=== PATIENT | female | born 1980 | race Caucasian/White ===

== ENCOUNTER 2017-09-16 12:15 | Inpatient (IN) | payer SELFPAY ==
[~2017-09-16] VITALS: Ht 157.5 cm; Wt 127.0 kg
[2017-09-16 12:40] LABS: BASOPHILS # (AUTO) 0.1 10^3/uL (0.0-0.1); BASOPHILS % (AUTO) 0 % (0-10); EOSINOPHILS % (AUTO) 0 % (0-10); HEMATOCRIT 42 % (35-52); HEMOGLOBIN 13.3 G/DL (11.5-16.0); LYMPHOCYTES # (AUTO) 1.7 X 10^3 (1.0-4.0); LYMPHOCYTES % (AUTO) 8 % (12-44); MEAN CORPUSCULAR HEMOGLOBIN 26 PG (25-34); MEAN CORPUSCULAR HGB CONC 32 G/DL (32-36); MEAN CORPUSCULAR VOLUME 81 FL (80-99); MEAN PLATELET VOLUME 9.3 FL (7.4-10.4); MONOCYTES # (AUTO) 1.4 X 10^3 (0.0-1.0); MONOCYTES % (AUTO) 7 % (0-12); NEUTROPHILS # (AUTO) 17.6 X 10^3 (1.8-7.8); NEUTROPHILS % (AUTO) 84 % (42-75); PLATELET COUNT 429 10^3/uL (130-400); RED BLOOD COUNT 5.19 10^6/uL (4.35-5.85); RED CELL DISTRIBUTION WIDTH 18.4 % (10.0-14.5); WHITE BLOOD COUNT 20.8 10^3/uL (4.3-11.0)
--- NOTE | 2017-09-16 12:42 | ED Lower Extremity ---
General Chief Complaint: Lower Extremity Stated Complaint: POSS FEMUR FX Nursing Triage Note: Pt to ed from home with reports of femur fx. Pt recieved xray earlier today was called and told she had fx. Pt fell at home, denies hitting head or any other pain. Nursing Sepsis Screen: No Definite Risk History of Present Illness Date Seen by Provider: Sep 16, 2017 Time Seen by Provider: 12:00 Initial Comments Patient states the emergency room from 's office with a left femur fracture. Patient reports following one month ago and being evaluated at the [facility] in [place] for a fall on the left hip, reports they gave her prednisone, Flexeril, and ibuprofen. She states that he did not do any imaging at this time. Today patient reports falling around 5:30 or 6 this morning in the bathroom prior to getting the shower, she is unaware of what caused the fall but reports feeling a pop in the left hip as she was falling. She then went to the [facility] again and x-rays were ordered and was then sent to the ER with a femur fracture. Onset: this morning Pain/Injury Location: left hip Method of Injury: fell Allergies and Home Medications Allergies Coded Allergies: No Known Drug Allergies (Unverified , 09/16/17) Patient Home Medication List Home Medication List Reviewed: Yes Constitutional: no symptoms reported, see HPI (1) EENTM: see HPI, no symptoms reported Respiratory: no symptoms reported, see HPI Cardiovascular: no symptoms reported, see HPI Gastrointestinal: no symptoms reported, see HPI Genitourinary: no symptoms reported, see HPI Musculoskeletal: other (left hip pain) Skin: no symptoms reported, see HPI Psychiatric/Neurological: No Symptoms Reported, See HPI Past Qwkjgyo-[id number]-[id number] Hx Patient Social History Recent Foreign Travel: No Contact w/Someone Who Travel: No Recent Infectious Disease Expo: No Physical Abuse: No Sexual Abuse: No Psychosocial Suicide Risk Score: 0 Physical Exam Vital Signs Vital Signs - First Documented 09/16/17 12:36 Temp 98.0 Pulse 100 Resp 20 B/P (MAP) 143/100 (114) Pulse Ox 99 O2 Delivery Room Air Capillary Refill : Less Than 3 Seconds General Appearance: WD/WN, no apparent distress HEENT: PERRL/EOMI, normal ENT inspection Neck: non-tender, full range of motion Cardiovascular: normal peripheral pulses, regular rate, rhythm, no edema, no gallop, no JVD, no murmur Respiratory: chest non-tender, lungs clear, normal breath sounds Gastrointestinal: normal bowel sounds, non tender Back: normal inspection Hips: left hip limited range of motion, left hip pain Progress/Results/Core Measures Results/Orders Lab Results Laboratory Tests Test 09/16/17 12:30 Range/Units White Blood Count 20.8 H 4.3-11.0 10^3/uL Red Blood Count 5.19 4.35-5.85 10^6/uL Hemoglobin 13.3 11.5-16.0 G/DL Hematocrit 42 35-52 % Mean Corpuscular Volume 81 80-99 FL Mean Corpuscular Hemoglobin 26 25-34 PG Mean Corpuscular Hemoglobin Concent 32 32-36 G/DL Red Cell Distribution Width 18.4 H 10.0-14.5 % Platelet Count 429 H 130-400 10^3/uL Mean Platelet Volume 9.3 7.4-10.4 FL Neutrophils (%) (Auto) 84 H 42-75 % Lymphocytes (%) (Auto) 8 L 12-44 % Monocytes (%) (Auto) 7 0-12 % Eosinophils (%) (Auto) 0 0-10 % Basophils (%) (Auto) 0 0-10 % Neutrophils # (Auto) 17.6 H 1.8-7.8 X 10^3 Lymphocytes # (Auto) 1.7 1.0-4.0 X 10^3 Monocytes # (Auto) 1.4 H 0.0-1.0 X 10^3 Eosinophils # (Auto) 0.0 0.0-0.3 10^3/uL Basophils # (Auto) 0.1 0.0-0.1 10^3/uL Neutrophils % (Manual) 85 % Lymphocytes % (Manual) 9 % Monocytes % (Manual) 3 % Eosinophils % (Manual) 0 % Basophils % (Manual) 0 % Band Neutrophils 3 % Anisocytosis SLIGHT Sodium Level 140 135-145 MMOL/L Potassium Level 4.0 3.6-5.0 MMOL/L Chloride Level 103 98-107 MMOL/L Carbon Dioxide Level 22 21-32 MMOL/L Anion Gap 15 H 5-14 MMOL/L Blood Urea Nitrogen 20 H 7-18 MG/DL Creatinine 0.85 0.60-1.30 MG/DL Estimat Glomerular Filtration Rate > 60 BUN/Creatinine Ratio 24 Glucose Level 169 H 70-105 MG/DL Calcium Level 9.2 8.5-10.1 MG/DL Total Bilirubin 0.4 0.1-1.0 MG/DL Aspartate Amino Transf (AST/SGOT) 13 5-34 U/L Alanine Aminotransferase (ALT/SGPT) 23 0-55 U/L Alkaline Phosphatase 72 40-136 U/L Total Protein 6.8 6.4-8.2 GM/DL Albumin 4.1 3.2-4.5 GM/DL Triglycerides Level 267 H <150 MG/DL Cholesterol Level 285 H < 200 MG/DL LDL Cholesterol Direct 207 H 1-129 MG/DL VLDL Cholesterol 53 H 5-40 MG/DL HDL Cholesterol 41 40-60 MG/DL My Orders Orders - CONSTANCE URENA APRN Cbc With Automated Diff (09/16/17 12:29) Comprehensive Metabolic Panel (09/16/17 12:29) Lipid Panel (09/16/17 12:29) Chest 1 View, Ap/Pa Only (09/16/17 12:29) Ekg Tracing (09/16/17 12:29) Manual Differential (09/16/17 12:30) Fentanyl Injection (Sublimaze Injection (09/16/17 13:00) Ct Extremity Lower Left Wo (09/16/17 13:24) Fentanyl Injection (Sublimaze Injection (09/16/17 14:45) Medications Given in ED Current Medications Medications Dose Ordered Sig/Walter Route Start Time Stop Time Status Last Admin Dose Admin Fentanyl Citrate 50 mcg ONCE ONCE IVP 09/16/17 13:00 09/16/17 13:01 DC 09/16/17 13:02 50 MCG Fentanyl Citrate 50 mcg ONCE ONCE IVP 09/16/17 14:45 09/16/17 14:46 09/16/17 14:42 50 MCG Vital Signs/I&O Vital Sign - Last 12Hours 09/16/17 12:36 Temp 98.0 Pulse 100 Resp 20 B/P (MAP) 143/100 (114) Pulse Ox 99 O2 Delivery Room Air Blood Pressure Mean: 114 Progress Note : Time: 12:40 Progress Note Spoke to Dr. Isaac at this time and reviewed patient's x-rays with him. Departure Communication (Admissions) Time/Spoke to Admitting Phy: 14:45 Communication I spoke with Dr. Isaac who is on-call for orthopedics. He would like a CT scan of the hip. This was also done and I discussed these results with him. He then spoke with Dr. Lam. Dr. Lam will accept the patient. I have not spoken with Dr. Lam directly but through Dr. Isaac we will admit to Dr. Lam, pain control, tentative plan for open reduction internal fixation left hip fracture tonight. Time/Spoke to Consulting Phy: 14:45 Impression Impression: Primary Impression: Hip fracture, left Disposition: 09 ADMITTED INPATIENT Condition: Stable Admissions Decision to Admit Reason: Admit from ER (Trauma) Decision to Admit/Date: Sep 16, 2017 Time/Decision to Admit Time: 14:46 Departure-Patient Inst. Decision time for Depature: 14:44 Referrals: SUBHASH RUVALCABA MD (PCP/Family) Primary Care Physician CONSTANCE URENA APRN Sep 16, 2017 12:42
[2017-09-16 12:59] LABS: ALANINE AMINOTRANSFERASE 23 U/L (0-55); ALBUMIN 4.1 GM/DL (3.2-4.5); ALKALINE PHOSPHATASE 72 U/L (40-136); BILIRUBIN,TOTAL 0.4 MG/DL (0.1-1.0); BUN/CREATININE RATIO 24; CALCIUM 9.2 MG/DL (8.5-10.1); CARBON DIOXIDE 22 MMOL/L (21-32); CHLORIDE 103 MMOL/L (98-107); CHOLESTEROL 285 MG/DL (< 200); CREATININE SERUM 0.85 MG/DL (0.60-1.30); GFR ESTIMATED > 60; GLUCOSE 169 MG/DL (70-105); HDL CHOLESTEROL 41 MG/DL (40-60); SODIUM 140 MMOL/L (135-145); TOTAL PROTEIN 6.8 GM/DL (6.4-8.2); TRIGLYCERIDES 267 MG/DL (<150); VLDL CHOLESTEROL 53 MG/DL (5-40)
[2017-09-16] MEDS ORDERED: fentaNYL INJECTION 100 MCG/2 ML AMP IVP ONE ×2 (13:00→14:45)
[2017-09-16 13:03] LABS: ANISOCYTOSIS SLIGHT; BAND NEUTROPHILS 3 %; BASOPHILS % (MANUAL) 0 %; EOSINOPHILS % (MANUAL) 0 %; LYMPHOCYTES % (MANUAL) 9 %; MONOCYTES % (MANUAL) 3 %; NEUTROPHILS % (MANUAL) 85 %
--- NOTE | 2017-09-16 13:14 | Diagnostic Imaging Report ---
INDICATION: Left femur fracture. COMPARISON: None. FINDINGS: Single frontal view of the chest demonstrates moderate cardiomegaly. Pulmonary vasculature is within normal limits. The lungs are well aerated and clear. No large pleural effusion or pneumothorax is seen. The visualized osseous structures show no acute abnormalities. IMPRESSION: 1. Moderate cardiomegaly, but no evidence of failure or focal infiltrate. Dictated by: Dictated on workstation # [id number]
--- NOTE | 2017-09-16 14:21 | Diagnostic Imaging Report ---
PROCEDURE: CT left lower extremity without contrast. TECHNIQUE: Multiple contiguous axial images were obtained through the left lower extremity without the use of intravenous contrast. Sagittal and coronal reformations were then performed. INDICATION: Left femur fracture. Correlation is made with plain films of the left femur earlier the same day. Femoral acetabular alignment is normal. There is an acute fracture involving the femoral neck. The fracture line appears to be in a basicervical location. Mild coxa varus deformity is seen. The remainder of the femur is intact. The acetabulum is intact. The superior and inferior pubic rami are intact. IMPRESSION: Basicervical left hip fracture. Dictated by: Dictated on workstation # [id number]
[2017-09-16 16:00] VITALS: BP 132/83
[2017-09-16] MEDS ORDERED: IBUP-1780 PO (17:16)
[2017-09-16] MEDS ORDERED: PRD10T PO (17:16)
[2017-09-16] MEDS ORDERED: CYCL10TA9 PO (17:16)
[2017-09-16] MEDS ORDERED: HYDR-3820 PO (17:16)
[2017-09-16] MEDS ORDERED: LISI30TA5 PO (17:16)
[2017-09-16] MEDS ORDERED: MULT1TAB69 PO (17:16)
[2017-09-16] MEDS ORDERED: AMLO10TA2 PO (17:16)
[2017-09-16] MEDS ORDERED: INFLUENZA TRIvalent 2017-2018 0.5 ML/45 MCG SYR IM ONE (17:30)
[2017-09-16] MEDS: LISINOPRIL 30 MG TABLET PO SCH (18:00)
[2017-09-16] MEDS ORDERED: CATHETER FLUSH 10 ML SYR IV PRN (18:00)
[2017-09-16] MEDS ORDERED: PATIENT MAY USE OWN MEDS, ALL MC SCH (18:00)
[2017-09-16] MEDS ORDERED: ONDANSETRON 4 MG/2 ML (SDV) Z0FRAN IV PRN (18:00)
[2017-09-16] MEDS: LACTATED RINGERS 1,000 ML IV SCH (18:08)
[2017-09-16] MEDS: fentaNYL INJECTION 100 MCG/2 ML AMP IV PRN ×3 (18:09→22:50)
[2017-09-16 19:48] VITALS: BP 125/77
[2017-09-17] VITALS (8 sets, daily range): BP systolic 128–140; BP diastolic 62–90
[2017-09-17] MEDS: fentaNYL INJECTION 100 MCG/2 ML AMP IV PRN ×10 (00:18→21:16)
[2017-09-17] MEDS: LACTATED RINGERS 1,000 ML IV SCH ×5 (01:43→16:34)
[2017-09-17] MEDS: LISINOPRIL 30 MG TABLET PO SCH (07:39)
[2017-09-17] MEDS: amLODIPine 10 MG (NORVASC) TAB PO SCH (07:39)
--- NOTE | 2017-09-17 08:28 | History & Physicial ---
History of Present Illness History of Present Illness Reason for visit/HPI Ms. Ovalle is a 36 y/o female that presents with CC of acute onset of severe Left hip pain and an inability to bear weight on her LLE. She says that about a month ago she had a slip on some ice where she strained her Left hip, there was no actual fall. She subsequently presented to her PCP where she was given oral medications for comfort and pain control. She says the Left hip pain eventually resolved until about a week ago when she sustained another slip, straining the Left hip once again. Again, there was no actual fall. She says subsequent to this second event she had increasing Left hip/groin pain, especially with AROM and weight bearing. She says that yesterday her Left leg just "gave out" as she was attempting to step into the shower, followed by a fall. She then had severe pain in the Left hip and an inability to bear weight on her LLE. She presented to the [facility] ED where plain XRs of the Left hip demonstrated a displaced basicervical femoral neck fracture. She was transferred to [facility] for definitive management of her injury. She denies other injuries and has no additional musculoskeletal complaints. She denies f/c/ns, cp/sob, n/v or other constitutional symptoms. Date of Admission Sep 16, 2017 at 14:28 Date Seen by Provider: Sep 17, 2017 Time Seen by Provider: 08:00 I consulted on this patient on 09/17/17 08:22 Attending Physician Angelita Falk DO Admitting Physician Scott Dobbs MD Consult Allergies and Home Medications Allergies Coded Allergies: No Known Drug Allergies (Unverified , 09/16/17) Home Medications Amlodipine Besylate 10 Mg Tablet, 10 MG PO DAILY, (Reported) Cyclobenzaprine HCl 10 Mg Tablet, 10 MG PO HS, (Reported) FILLED 09/12/16 #7 FOR A 7 DAY THERAPY Hydrocodone/Acetaminophen 1 Each Tablet, 1 TAB PO Q4H PRN for PAIN-MODERATE, ( Reported) Ibuprofen 800 Mg Tablet, 800 MG PO Q8H PRN for PAIN-MILD, (Reported) Lisinopril 30 Mg Tablet, 30 MG PO DAILY, (Reported) Multivitamin 1 Each Tablet, 1 TAB PO DAILY, (Reported) Prednisone 10 Mg Tab, 10 MG PO BID WITH MEALS, (Reported) FILLED 09/12/16 #14 FOR A 7 DAY THERAPY Patient Home Medication List Home Medication List Reviewed: Yes Past Uvzmcdu-Cmxjjz-Qxwjss Hx Patient Social History Marrital Status: single Alcohol Use: Rarely Uses Number of Drinks Today: 0 Recreational Drug Use: No Smoking Status: Never a Smoker Physical Abuse Screen: No Sexual Abuse: No Recent Foreign Travel: No Contact w/other who traveled: No Recent Hopitalizations: No Recent Infectious Disease Expo: No Seasonal Allergies Seasonal Allergies: No Surgeries Yes Tonsillectomy Respiratory No Cardiovascular Yes Hypertension Neurological No Reproductive System : No Genitourinary No Gastrointestinal No Musculoskeletal No Endocrine History of Endocrine Disorders: No HEENT History of HEENT Disorders: No Cancer No Psychosocial History of Psychiatric Problem: No Integumentary History of Skin or Integumenta: No Blood Transfusions History of Blood Disorders: No Family Medical History Significant Family History: No Pertinent Family Hx Constitutional: no symptoms reported EENTM: no symptoms reported Respiratory: no symptoms reported Cardiovascular: no symptoms reported Gastrointestinal: no symptoms reported Genitourinary: no symptoms reported : No Musculoskeletal: joint pain, other (Left hip pain) Skin: no symptoms reported Psychiatric/Neurological: No Symptoms Reported All Other Systems Reviewed Negative Unless Noted: Yes Physical Exam Vital Signs Vital Signs - First Documented 09/16/17 12:36 Temp 98.0 Pulse 100 Resp 20 B/P (MAP) 143/100 (114) Pulse Ox 99 O2 Delivery Room Air Capillary Refill : Less Than 3 SecondsLess Than 3 Seconds General Appearance: No Apparent Distress, WD/WN Eyes: Bilateral Eye Normal Inspection, Bilateral Eye PERRL, Bilateral Eye EOMI HEENT: PERRL/EOMI, Normal ENT Inspection, Moist Mucous Membranes Neck: Full Range of Motion, Normal Inspection, Non Tender, Supple Respiratory: No Accessory Muscle Use, No Respiratory Distress Cardiovascular: Regular Rate, Rhythm, Normal Peripheral Pulses Gastrointestinal: Non Tender, Soft Extremity: Normal Capillary Refill, No Calf Tenderness, No Pedal Edema, Other ( LLE: shortened, externally rotated, all compartments soft/compressible, skin intact, no open wounds, pain with any ROM Left hip, motor/sensation grossly intact, foot well perfused.) Neurologic/Psychiatric: Alert, Oriented x3, No Motor/Sensory Deficits, Normal Mood/Affect, 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 Unstable injury that will require operative fixation. Remain NPO IV pain control SCDs Plan for OR later this morning. Will plan to protect weight bearing LLE after surgery. She will get VTE prophylaxis with Lovenox post-surgery. Will consult hospitalist for medical management. She will be mobilized OOB daily post-surgery with PT/OT. I discussed the nature of the injury with the patient in detail including the natural history and prognosis. We also discussed the indications for surgery and the operative plan in detail including the risks, benefits, potential complications and expected outcomes. Risks that were discussed included significant bleeding, infection, damage to surrounding neurovascular structures, malunion, nonunion, AVN of the femoral head, hardware failure and potential need for secondary surgical procedures. All of the patient's questions have been answered to her satisfaction. She has given informed written consent to proceed as planned. Problems: Admission Diagnosis Admission Status: Inpatient Order (span 2 midnights) Reason for Inpatient Admission: Left femoral neck fracture. Clinical Quality Measures DVT/VTE Risk/Contraindication: Risk Factor Score Per Nursin RFS Level Per Nursing on Admit: 4+=Very High ANGELITA FALK DO Sep 17, 2017 08:28
[2017-09-17] MEDS ORDERED: LIDOCAINE PF 2% 5 ML (XYLOCAINE) VIAL ONE (13:30)
[2017-09-17] MEDS ORDERED: ONDANSETRON 4 MG/2 ML (SDV) Z0FRAN ONE (13:30)
[2017-09-17] MEDS ORDERED: ROCURONIUM 10 MG/ML 5 ML SYRINGE IV ONE ×2 (13:30→15:42)
[2017-09-17] MEDS ORDERED: DEXAMETHASONE 10 MG/ML (DECADRON) 1 ML VIAL ONE (13:30)
[2017-09-17] MEDS ORDERED: proPOfol 200 MG/20 ML (DIPRIVAN) VIAL IV ONE (13:30)
[2017-09-17] MEDS ORDERED: MIDAZOLAM 2 MG/2 ML (VERSED) VIAL ONE (13:31)
[2017-09-17] MEDS ORDERED: fentaNYL INJECTION 100 MCG/2 ML AMP ONE ×3 (13:31→15:41)
[2017-09-17] MEDS ORDERED: ceFAZolin 1,000 MG (ANCEF) VIAL ONE (14:04)
[2017-09-17] MEDS ORDERED: BUP/EPI 0.5% 1:200,000 (SENSORCAINE) 30 ML VIAL ONE (14:24)
[2017-09-17] MEDS ORDERED: LACTATED RINGERS 0 ML IV ONE (14:47)
[2017-09-17] MEDS ORDERED: morphine INJ 10 MG/ML 1ML (SYR OR VIAL) ONE (15:20)
[2017-09-17] MEDS ORDERED: HYDROmorphone (DILAUDID) 2 MG/ML VIAL ONE (15:20)
[2017-09-17] MEDS ORDERED: PROMETHAZINE INJ 25 MG/ML (PHENERGAN) AMP ONE (15:21)
[2017-09-17] MEDS ORDERED: SUFentanil CITRATE INJ 50MCG/ML 1ML AMP IV ONE (15:44)
[2017-09-17] MEDS ORDERED: NEOSTIGMINE 1 MG/ML 5 ML SYRINGE ONE (15:55)
[2017-09-17] MEDS ORDERED: GLYCOPYRROLATE 0.2 MG/ML (ROBINUL) 2 ML VIAL ONE (15:55)
[2017-09-17] MEDS ORDERED: KETOROLAC 30 MG/ML VIAL ONE ×2 (16:09→17:16)
--- NOTE | 2017-09-17 16:26 | Diagnostic Imaging Report ---
INDICATION: Fracture, undergoing fixation. TECHNIQUE: 2 intraoperative views left femur, 3:46 PM. CORRELATION STUDY: 09/16/2017 FINDINGS: Intraoperative imaging demonstrates placement of a proximal intermedullary elan within the left femur with a sliding nail. Alignment appearing be relatively anatomic as visualized on the limited intraoperative views. Fluoroscopy time: 3 minute 5 seconds : IMPRESSION: 1. Internal fixation being performed of a proximal left femur fracture. Dictated by: Dictated on workstation # [id number]
--- NOTE | 2017-09-17 16:53 | Progress Note-Post Operative ---
Post-Operative Progess Note Surgeon (s)/Puppy Sitter (s) Surgeon ANGELITA FALK DO Puppy Sitter Nitin Chowdary PA-C Pre-Operative Diagnosis Displaced basicervical fracture Left femoral neck Post-Operative Diagnosis same Post-Op Procedure Note Date of Procedure: Sep 17, 2017 Name of Procedure Performed: Closed reduction, placement of cephalomedullary nail Left femur Description & Findings Description and Findings: Completely displaced basicervical fracture Left femoral neck. Anesthesia Type General Estimated Blood Loss 200 mL Packing none. Specimen(s) collected/removed None ANGELITA FALK DO Sep 17, 2017 16:53
[2017-09-17] MEDS ORDERED: VANCOMYCIN INJECTION 1,000 MG in NS (IVPB) 250 ML IV SCH (17:00)
[2017-09-17] MEDS ORDERED: SEVOFLURANE (ULTANE) 15 ML INHAL SOLN ONE (17:15)
[2017-09-17] MEDS ORDERED: morphine INJ 10 MG/ML 1ML (SYR OR VIAL) IVP PRN (17:15)
[2017-09-17] MEDS ORDERED: ONDANSETRON 4 MG/2 ML (SDV) Z0FRAN IVP PRN (17:15)
[2017-09-17] MEDS ORDERED: HYDROmorphone (DILAUDID) 2 MG/ML VIAL IVP PRN (17:15)
[2017-09-17] MEDS ORDERED: ALBUTEROL INHALER HFA (VENTOLIN HFA) 8 GM IH ONE ×12 (17:16)
[2017-09-17] MEDS ORDERED: PHENYLEPHRINE 100 MCG/ML 10 ML (ANESTHESIA) SYR ONE (17:16)
[2017-09-17] MEDS: VANCOMYCIN 1 GM/NS 250 ML IVPB IV SCH ×2 (18:25)
[2017-09-17] MEDS: KETOROLAC 15 MG/ML VIAL IM/IV SCH ×2 (19:14→22:14)
[2017-09-18] VITALS: BP 116/56
[2017-09-18] MEDS: LACTATED RINGERS 1,000 ML IV SCH ×6 (00:55→22:19)
[2017-09-18] MEDS: oxyCODONE/APAP 5/325MG (PERCOCET 5) TABLET PO PRN ×3 (00:56→20:26)
[2017-09-18] MEDS: fentaNYL INJECTION 100 MCG/2 ML AMP IV PRN ×4 (03:49→18:54)
[2017-09-18 04:00] VITALS: BP 124/65
[2017-09-18] MEDS: KETOROLAC 15 MG/ML VIAL IM/IV SCH (04:54)
[2017-09-18] MEDS: VANCOMYCIN 1 GM/NS 250 ML IVPB IV SCH ×2 (04:55)
[2017-09-18 06:28] LABS: HEMOGLOBIN 10.3 G/DL (11.5-16.0)
[2017-09-18 08:00] VITALS: BP 133/77
--- NOTE | 2017-09-18 09:45 | Anesthesia-General Post-Op ---
General Patient Condition Mental Status/LOC: Same as Preop Cardiovascular: Satisfactory Nausea/Vomiting: Absent Respiratory: Satisfactory Pain: Controlled Complications: Absent Post Op Complications Complications None Follow Up Care/Instructions Patient Instructions None needed. Anesthesia/Patient Condition Patient Condition Patient is doing well, no complaints, stable vital signs, no apparent adverse anesthesia problems. No complications reported per nursing. D/C home per [facility] Criteria: No CORI ELMORE CRNA Sep 18, 2017 09:45
[2017-09-18] MEDS: ENOXAPARIN 40 MG/0.4 ML (LOVENOX) SYR SC SCH (09:53)
[2017-09-18] MEDS: amLODIPine 10 MG (NORVASC) TAB PO SCH (09:53)
[2017-09-18] MEDS: LISINOPRIL 30 MG TABLET PO SCH (09:54)
--- NOTE | 2017-09-18 11:47 | Physical Therapy Evaluation ---
PT Evaluation-General Medical Diagnosis Admission Date Sep 16, 2017 at 14:28 Medical Diagnosis: left femoral neck fracture Onset Date: Sep 16, 2017 Therapy Diagnosis Therapy Diagnosis: debility/weakness Height/Weight Height (Feet): 5 Height (Inches): 2.00 Weight (Pounds): 280 Weight (Ounces): 0.0 Precautions Precautions/Isolations: Standard Precautions Weight Bear Status Right Lower Extremity: Right Full Weight Bearing Left Lower Extremity: Left Non Weight Bearing strict NWB left LE Referral Physician: Genaro Reason for Referral: Evaluation/Treatment Medical History Pertinent Medical History: HTN Additional Medical History morbid obesity Current History ED secondary to fall at home resulting in left hip fracture Reviewed History: Yes Social History Home: Multilevel Current Living Status: Spouse Entry Into Home: Ramp Prior/Core FIM Prior Level of Function Functional [place] Measure 0=Not Assessed/NA 4=Minimal Assistance 1=Total Assistance 5=Supervision or Setup 2=Maximal Assistance 6=Modified [place] 3=Moderate Assistance 7=Complete [place] Bed Mobility: 7 Transfers (B,C,W/C) (FIM): 7 Gait: 7 Locomotion: 7 PT Evaluation-Current Subjective Patient is very motivated to participate with PT so she can go home. Pain Numeric Pain Scale: 3 Location: Left Location Body Site: Hip Pain Description: Acute Objective Patient Orientation: Normal For Age Problem Solving: Good Attachments: IV ROM/Strength ROM Lower Extremities right LE WNL left LE NT Strength Lower Extremities left LE NT right knee flexion/extension 4/5; hip flexion NT due to morbid obesity; DF/PF 4/ 5 Integumentary/Posture Integumentary refer to nursing notes Bowel Incontinence: No Bladder Incontinence: No Posture WNL Neuromuscular (Tone, Coordination, Reflexes) grossly intact Sensory Vision: Wears Glasses Hearing: Functional Sensation Right Lower Extremit: Intact Sensation Left Lower Extremity: Intact Transfers Functional [place] Measure 0=Not Assessed/NA 4=Minimal Assistance 1=Total Assistance 5=Supervision or Setup 2=Maximal Assistance 6=Modified [place] 3=Moderate Assistance 7=Complete [place] Transfers (B, C, W/C) (FIM): 4 Scootin Rollin Supine to/from Sit: 4 Sit to/from Stand: 4 bed t/f WC(FIM only if WC use): 4 CGA for safety; Patient demonstrated good ability to perform sit to stand and SPT with FWW bed to chair. Gait Anticipated Mode of Locomotion: Wheelchair Balance Sitting Static: Normal Sitting Dynamic: Normal Standing Static: Normal Standing Dynamic: Fair Assessment/Needs 36 y.o. female, will be seen short term by skilled PT to ensure patient will be safe with transfers to return to home with spouse at maximum LOF. Rehab Potential: Good PT Short Term Goals Short Term Goals Time Frame: Sep 24, 2017 Transfers (B,C,W/C) (FIM): 6 Gait (FIM): 1 Distance (FIM): 1=up to 49 ft Gait Level of Assist: 5 PT Plan Treatment/Plan Treatment Plan: Continue Plan of Care Treatment Plan: Bed Mobility, Education, Functional Activity Juliana, Functional Strength, Gait, Safety, Therapeutic Exercise, Transfers Treatment Duration: Sep 24, 2017 Frequency: 6 times per week Estimated Hrs Per Day: .5 hour per day Patient and/or Family Agrees t: Yes Safety Risks/Education Patient Education: Transfer Techniques Teaching Recipient: Patient Teaching Methods: Demonstration, Discussion Response to Teaching: Verbalize Understanding, Return Demonstration Discharge Recommendations Therapy D/C Recommendations: Home w/ Family Support Equpiment Recommendations-D/C: Front Wheeled Walker, Manual Wheelchair Time/GCodes Time In: 1032 Time Out: 1052 Total Billed Treatment Time: 20 Total Billed Treatment 1 visit EVModC 20 min DIPIKA ZHANG PT Sep 18, 2017 11:47
[2017-09-18 12:00] VITALS: BP 131/82
--- NOTE | 2017-09-18 15:26 | Physical Therapy Daily Note ---
PT Daily Note-Current Transfers Functional [place] Measure 0=Not Assessed/NA 4=Minimal Assistance 1=Total Assistance 5=Supervision or Setup 2=Maximal Assistance 6=Modified [place] 3=Moderate Assistance 7=Complete IndependenceIRFPAI Quality Coding Scale 6 Independent with activity with or without an assistive device 5 Patient requires set up or clean up by helper. Patient completes activity by themselves 4 Supervision or touching assist (CGA). Douglas provide cues , steadying assist 3 The helper provides less than half the effort to complete the activity 2 The helper provides more than half the effort to complete the activity 1 Dependent. The helper does all the effort to complete an activity 7 Patient refused to complete or attempt activity 9 The patient did not perform the activity before the current illness or injury 88 Not attempted due to Medical conditions or safety concerns Weight Bearing Right Lower Extremity: Right Full Weight Bearing Left Lower Extremity: Left Non Weight Bearing strict NWB left LE Assessment Patient is in bed and reports she has been up ad cherri, NWB left LE with FWW to restroom. Patient reports she feels safe with transfers and mobility. Education with patient with demonstration of LE exercises of AP, QS, HS. Patient demonstrates good technique. Patient also reports they have a ramp, w/ c and FWW at home for use. PT will check with patient in a.m. for any concerns. PT Short Term Goals Short Term Goals Time Frame: Sep 24, 2017 Transfers (B,C,W/C) (FIM): 6 Gait (FIM): 1 Distance (FIM): 1=up to 49 ft Gait Level of Assist: 5 PT Plan Treatment/Plan Treatment Plan: Continue Plan of Care Treatment Plan: Bed Mobility, Education, Functional Activity Juliana, Functional Strength, Gait, Safety, Therapeutic Exercise, Transfers Treatment Duration: Sep 24, 2017 Frequency: 6 times per week Estimated Hrs Per Day: .5 hour per day Patient and/or Family Agrees t: Yes Safety Risks/Education Patient Education: Transfer Techniques, Issued Written HEP, Safety Issues Teaching Recipient: Patient Teaching Methods: Discussion Response to Teaching: Verbalize Understanding Time/GCodes Time In: 1451 Time Out: 1500 Total Billed Treatment Time: 9 Total Billed Treatment 1 visit Educ 1:1 DIPIKA ZHANG PT Sep 18, 2017 15:25
--- NOTE | 2017-09-18 15:55 | Occupational Therapy Eval ---
OT Evaluation-General/PLF Medical Diagnosis Admission Date Sep 16, 2017 at 14:28 Medical Diagnosis: left femoral neck fracture Onset Date: Sep 16, 2017 Therapy Diagnosis Therapy Diagnosis: Weakness, Decreased ADL skills Height/Weight Height (Feet): 5 Height (Inches): 2.00 Weight (Pounds): 280 Weight (Ounces): 0.0 Precautions Precautions/Isolations: Standard Precautions Safety Interventions: None Weight Bear Status Weight Bearing Restriction: Non Weight Bearing Location Restriction: L LE Referral Physician: Genaro Referral Reason: Activity Tolerance, Self Care, Evaluation/Treatment, Strengthening/ROM Medical History Pertinent Medical History: HTN Current History Pt. fell at home after straining her left groin twice. [place] a pop. Underwent ORIF left hip. Strict NWB left LE. Reviewed History: Yes Social History Home: Multilevel Current Living Status: Spouse Entry Into Home: Ramp ADL-Prior Level of Function ADL PLOF Comments Pt. was independent with basic self care skills. Pt. states that her spouse can assist her with all tasks at needed. DME/Equipment Comments Pt. has a walker, wheelchair, and ramp from her mother at home. Drive Self: Yes OT Current Status Subjective Pt. is reporting 9/10 pain in left hip. Nursing comes in to give pt. pain med in IV. Appearance Pt. up in chair. States that she has lost her appetite due to her pain at this time. Mental Status/Objective Patient Orientation: Person, Place, Time, Situation Attachments: IV Current Upper Extremity ROM WFL Upper Extremity Strength WFL ADL-Treatment Functional [place] Measure 0=Not Assessed/NA 4=Minimal Assistance 1=Total Assistance 5=Supervision or Setup 2=Maximal Assistance 6=Modified [place] 3=Moderate Assistance 7=Complete IndependenceIRFPAI Quality Coding Scale 6 Independent with activity with or without an assistive device 5 Patient requires set up or clean up by helper. Patient completes activity by themselves 4 Supervision or touching assist (CGA). [place] provide cues , steadying assist 3 The helper provides less than half the effort to complete the activity 2 The helper provides more than half the effort to complete the activity 1 Dependent. The helper does all the effort to complete an activity 7 Patient refused to complete or attempt activity 9 The patient did not perform the activity before the current illness or injury 88 Not attempted due to Medical conditions or safety concerns Eating (FIM): 7 Lower Body Dressing (FIM): 3 (Pt. is able to don right sock after she transfers to bed and gets foot up on bed, but is unable to don left sock.) Transfers (B, C, W/C) (FIM): 4 (Min assist to stand out of chair and transfer to bed with walker.) Pt. states that she just showered. States that she did not have any trouble. No street clothing available. Pt. reports that she was able to bathe all parts , including her rear umu area. States that she feels she will not have difficulty once she has a BM, cleaning herself up. Pt. states her spouse can assist her as needed at home. OT educated her on use of AE, and will demonstrate this to her tomorrow. Pt. in pain today and awaiting pain meds. Education OT Patient Education: Correct positioning, Modified ADL techniques, Progress toward Goal/Update tx plan, Purpose of tx/functional activities, Reviewed precautions, Rehab process, Transfer techniques Teaching Recipient: Patient, Significant Other Teaching Methods: Demonstration Response to Teaching: Verbalize Understanding, Return Demonstration OT Short Term Goals Short Term Goals Transfers (B,C,W/C) (FIM): 6 1=Demonstrate adherence to instructed precautions during ADL tasks. 2=Patient will verbalize/demonstrate understanding of assistive devices/ modifications for ADL. 3=Patient will improve strength/tolerance for activity to enable patient to perform ADL's. OT Counter Supply Worker Goals Counter Supply Worker Goals Time Frame: Sep 25, 2017 Eating (FIM): 7 Grooming(FIM): 7 Bathing(FIM): 6 Upper Body Dressing(FIM): 6 Lower Body Dressing(FIM): 6 Toileting(FIM): 6 Transfers (B,C,W/C) (FIM): 6 Toilet/Commode Transfer(FIM): 6 Shower Transfer(FIM): 6 Additional Goals: 1-Demonstrate ADL Tasks, 2-Verbalize Understanding, 3- ImproveStrength/Juliana 1=Demonstrate adherence to instructed precautions during ADL tasks. 2=Patient will verbalize/demonstrate understanding of assistive devices/ modifications for ADL. 3=Patient will improve strength/tolerance for activity to enable patient to perform ADL's. OT Education/Plan Problem List/Assessment Assessment: Decreased Activ Tolerance, Dependent Transfers, Impaired Bed Mobility, Impaired I ADL's, Impaired Self-Care Skills Discharge Recommendations Plan/Recommendations: Continue POC Therapy D/C Recommendations: Home w/ Family Support, Occupational Therapy Home Care Equpiment Recommendations-D/C: Hip Kit Target Placement Home with spouse and home health if needed. Treatment Plan/Plan of Care Treatment,Training & Education: Yes Patient would benefit from OT for education, treatment and training to promote independence in ADL's, mobility, safety and/or upper extremity function for ADL' s. Plan of Care: ADL Retraining, Functional Mobility, UE Funct Exercise/Act Treatment Duration: Sep 25, 2017 Frequency: 5 times per week Estimated Hrs Per Day: .5 hour per day Agreement: Yes Rehab Potential: Good Time/GCodes Start Time: 13:10 Stop Time: 13:45 Total Time Billed (hr/min): 35 Billed Treatment Time 1, EVM x 15minutes, ADL x 20minutes TATIANA JOHNSON OT Sep 18, 2017 15:55
[2017-09-18 16:29] VITALS: BP 127/78
--- NOTE | 2017-09-18 17:06 | Progress Note (SOAP) ---
Subjective Date Seen by Provider: Sep 18, 2017 Time Seen by Provider: 16:30 Objective Exam Vital Signs Date Time Temp Pulse Resp B/P (MAP) Pulse Ox O2 Delivery O2 Flow Rate FiO2 09/18/17 16:29 97.9 100 18 127/78 (94) 96 Room Air 09/18/17 12:00 97.8 107 22 131/82 (98) 96 Room Air 09/18/17 08:00 98.4 100 20 133/77 (95) 94 Room Air 09/18/17 04:00 98.5 90 16 124/65 (84) 92 Room Air 09/18/17 00:00 99.1 103 16 116/56 (76) 92 Room Air 09/17/17 20:38 97.3 105 18 133/79 (97) 97 Room Air 09/17/17 19:29 96.9 09/17/17 19:29 96.9 09/17/17 19:17 Room Air 09/17/17 19:14 96.9 09/17/17 18:38 96.9 09/17/17 18:26 96.9 84 18 138/79 (98) 96 Nasal Cannula 4.00 I & O 09/18/17 07:00 Intake Total 2170 ml Output Total 2625 ml Balance -455 ml Capillary Refill : Less Than 3 SecondsLess Than 3 Seconds General Appearance: No Apparent Distress, WD/WN HEENT: PERRL/EOMI, Normal ENT Inspection Respiratory: No Accessory Muscle Use, No Respiratory Distress Cardiovascular: Regular Rate, Rhythm, Normal Peripheral Pulses Peripheral Pulses: 2+ Dorsalis Pedis (R), 2+ Left Dors-Pedis (L) Gastrointestinal: non tender, soft Extremity: Normal Capillary Refill, No Calf Tenderness, Other (LLE: dressings with mild SS drainage, all compartments soft/compressible, motor/sensation grossly intact, foot well pers) Neurologic/Psychiatric: Alert, Oriented x3, No Motor/Sensory Deficits, Normal Mood/Affect, precision aircraft structure assembler II-XII Norm as Tested Skin: Normal Color, Warm/Dry Results Lab Laboratory Tests 09/18/17 05:25: Hemoglobin 10.3#L, Hematocrit 33L Microbiology 09/17/17 MRSA Screen - Final, Complete MRSA not isolated Assessment/Plan Assessment/Plan Assess & Plan/Chief Complaint S/P IMN Left femur for displaced basicervical femoral neck fracture, POD #1 Doing well, orthopedically stable. Lovenox for VTE prophylaxis. Current pain control regimen. Mobilize OOB daily with PT/OT, strict NWB LLE. ISB/SCDs D/C planning: pt to d/c to home when clears PT, likely in 1-2 days. Clinical Quality Measures Admission Status Admission Dx A/P: 36 y/o with displaced basicervical fracture Left femoral neck. Unstable injury that will require operative fixation. Remain NPO IV pain control SCDs Plan for OR later this morning. Will plan to protect weight bearing LLE after surgery. She will get VTE prophylaxis with Lovenox post-surgery. Will consult hospitalist for medical management. She will be mobilized OOB daily post-surgery with PT/OT. I discussed the nature of the injury with the patient in detail including the natural history and prognosis. We also discussed the indications for surgery and the operative plan in detail including the risks, benefits, potential complications and expected outcomes. Risks that were discussed included significant bleeding, infection, damage to surrounding neurovascular structures, malunion, nonunion, AVN of the femoral head, hardware failure and potential need for secondary surgical procedures. All of the patient's questions have been answered to her satisfaction. She has given informed written consent to proceed as planned. DVT/VTE Risk/Contraindication: Risk Factor Score Per Nursin RFS Level Per Nursing on Admit: 4+=Very High ANGELITA FALK DO Sep 18, 2017 17:06
[2017-09-18 20:08] VITALS: BP 120/74
[2017-09-19] VITALS: BP 117/67
[2017-09-19] MEDS: oxyCODONE/APAP 5/325MG (PERCOCET 5) TABLET PO PRN ×6 (00:48→23:43)
[2017-09-19 04:00] VITALS: BP 123/68
[2017-09-19] MEDS: LACTATED RINGERS 1,000 ML IV SCH ×2 (06:24→17:25)
[2017-09-19] MEDS: amLODIPine 10 MG (NORVASC) TAB PO SCH (08:01)
[2017-09-19] MEDS: ENOXAPARIN 40 MG/0.4 ML (LOVENOX) SYR SC SCH (08:02)
[2017-09-19] MEDS: LISINOPRIL 30 MG TABLET PO SCH (08:02)
[2017-09-19 08:30] VITALS: BP 142/91
--- NOTE | 2017-09-19 11:24 | Physical Therapy Daily Note ---
PT Daily Note-Current Subjective Patient agrees to PT and reports she has had pain medication. Pain Numeric Pain Scale: 4 Location: Left Location Body Site: Hip Pain Description: Acute Mental Status Patient Orientation: Normal For Age Attachments: IV Transfers Functional [place] Measure 0=Not Assessed/NA 4=Minimal Assistance 1=Total Assistance 5=Supervision or Setup 2=Maximal Assistance 6=Modified [place] 3=Moderate Assistance 7=Complete IndependenceIRFPAI Quality Coding Scale 6 Independent with activity with or without an assistive device 5 Patient requires set up or clean up by helper. Patient completes activity by themselves 4 Supervision or touching assist (CGA). [place] provide cues , steadying assist 3 The helper provides less than half the effort to complete the activity 2 The helper provides more than half the effort to complete the activity 1 Dependent. The helper does all the effort to complete an activity 7 Patient refused to complete or attempt activity 9 The patient did not perform the activity before the current illness or injury 88 Not attempted due to Medical conditions or safety concerns Transfers (B, C, W/C) (FIM): 4 Scootin Rollin Supine to/from Sit: 4 (assist for Left LE only) Sit to/from Stand: 5 Weight Bearing Right Lower Extremity: Right Full Weight Bearing Left Lower Extremity: Left Non Weight Bearing strict NWB left LE Gait Training Gait (FIM): 1 Distance (FIM): 1=up to 49 ft Distance: 5' Gait Level of Assist: 5 Gait Assistive Device: FWW Patient is able to ambulate short distances with NWB left LE. Exercises Supine Ex: Ankle pumps, Quad Set, Heel Slides, Straight leg raise, Hip abd/add Supine Reps: 15 (AAROM SLR) Seated Therapy Exercises: Long arc quads Seated Reps: [address] Ex=Flex, Abd, Ext (left LE only) Standing Reps: 15 (2 sets) Assessment Patient reports she has FWW, w/c and ramp at home and feels comfortable with returning to home when physician releases her. Education with patient on performing exercises PRN with patient voicing understanding. PT to dismiss patient from services at this time. PT Short Term Goals Short Term Goals Time Frame: Sep 24, 2017 Transfers (B,C,W/C) (FIM): 6 Gait (FIM): 1 Distance (FIM): 1=up to 49 ft Gait Level of Assist: 5 PT Plan Treatment/Plan Treatment Plan: Discontinue PT Treatment Plan: Bed Mobility, Education, Functional Activity Juliana, Functional Strength, Gait, Safety, Therapeutic Exercise, Transfers Treatment Duration: Sep 24, 2017 Frequency: 6 times per week Estimated Hrs Per Day: .5 hour per day Patient and/or Family Agrees t: Yes Time/GCodes Time In: 1045 Time Out: 1055 Total Billed Treatment Time: 10 Total Billed Treatment 1 visit EX 10 min DIPIKA ZHANG PT Sep 19, 2017 11:23
[2017-09-19] MEDS: fentaNYL INJECTION 100 MCG/2 ML AMP IV PRN (12:01)
[2017-09-19 12:30] VITALS: BP 116/72
--- NOTE | 2017-09-19 12:48 | Occupational Ther Daily Note ---
OT Current Status-Daily Note Subjective Pt in bed, agrees to treatment. Pt reports 6/10 pain in left LE. Mental Status/Objective Functional [place] Measure 0=Not Assessed/NA 4=Minimal Assistance 1=Total Assistance 5=Supervision or Setup 2=Maximal Assistance 6=Modified [place] 3=Moderate Assistance 7=Complete [place] ADL-Treatment Pt supine to sit with minimal assistance for left LE. Education provided regarding use of adaptive equipment for LE dressing. Pt doffed socks with SBA using dressing stick. Donned socks with set up using sock aid. Educated pt on technique for donning pants with adaptive equipment. Pt states understanding of education and has no questions at this time. Pt states spouse will be available to assist with ADLs as needed at home. Pt with needs met after session. Education OT Patient Education: Modified ADL techniques Teaching Recipient: Patient Teaching Methods: Demonstration, Discussion Response to Teaching: Return Demonstration OT Short Term Goals Short Term Goals Transfers (B,C,W/C) (FIM): 6 1=Demonstrate adherence to instructed precautions during ADL tasks. 2=Patient will verbalize/demonstrate understanding of assistive devices/ modifications for ADL. 3=Patient will improve strength/tolerance for activity to enable patient to perform ADL's. OT Intermediate Goals [place] Observer Goals Time Frame: Sep 25, 2017 Eating (FIM): 7 Grooming(FIM): 7 Bathing(FIM): 6 Upper Body Dressing(FIM): 6 Lower Body Dressing(FIM): 6 Toileting(FIM): 6 Transfers (B,C,W/C) (FIM): 6 Toilet/Commode Transfer(FIM): 6 Shower Transfer(FIM): 6 Additional Goals: 1-Demonstrate ADL Tasks, 2-Verbalize Understanding, 3- ImproveStrength/Juliana 1=Demonstrate adherence to instructed precautions during ADL tasks. 2=Patient will verbalize/demonstrate understanding of assistive devices/ modifications for ADL. 3=Patient will improve strength/tolerance for activity to enable patient to perform ADL's. OT Education/Plan Discharge Recommendations Plan/Recommendations: Continue POC Treatment Plan/Plan of Care Patient would benefit from OT for education, treatment and training to promote independence in ADL's, mobility, safety and/or upper extremity function for ADL' s. Plan of Care: ADL Retraining, Functional Mobility, UE Funct Exercise/Act Treatment Duration: Sep 25, 2017 Frequency: 5 times per week Estimated Hrs Per Day: .5 hour per day Agreement: Yes Rehab Potential: Good Time/GCodes Start Time: 10:57 Stop Time: 11:08 Total Time Billed (hr/min): 11 Billed Treatment Time 1 visit, ADL(11minutes) BEVERLY PADILLA OT Sep 19, 2017 12:48
[2017-09-19 16:00] VITALS: BP 114/70
--- NOTE | 2017-09-19 17:34 | Progress Note (SOAP) ---
Subjective Date Seen by Provider: Sep 19, 2017 Time Seen by Provider: 17:32 Subjective/Events-last exam Pt CRISTHIAN, pain controlled, making progress in PT/OT, no complaints today. Objective Exam Vital Signs Date Time Temp Pulse Resp B/P (MAP) Pulse Ox O2 Delivery O2 Flow Rate FiO2 09/19/17 16:00 98.3 98 18 114/70 (85) 94 Room Air 09/19/17 12:30 97.7 107 20 116/72 (87) 95 Room Air 09/19/17 08:30 97.2 106 20 142/91 (108) 93 Room Air 09/19/17 04:00 97.6 90 20 123/68 (86) 94 Room Air 09/19/17 00:00 97.2 104 16 117/67 (84) 94 Room Air 09/18/17 20:08 98.6 101 20 120/74 (89) 96 Room Air I & O 09/19/17 07:00 Intake Total 4681 ml Output Total 1000 ml Balance 3681 ml Capillary Refill : Less Than 3 SecondsLess Than 3 Seconds General Appearance: No Apparent Distress, WD/WN HEENT: PERRL/EOMI Respiratory: No Accessory Muscle Use, No Respiratory Distress Cardiovascular: Regular Rate, Rhythm, Normal Peripheral Pulses Peripheral Pulses: 2+ Dorsalis Pedis (R), 2+ Left Dors-Pedis (L) Gastrointestinal: non tender, soft Extremity: Other (LLE: dressings with mild ss drainage, all compartments soft/ compressible, motor/sensation grossly intact, foot well perfused.) Neurologic/Psychiatric: Alert, Oriented x3, No Motor/Sensory Deficits, Normal Mood/Affect, education administrator II-XII Norm as Tested Results Lab Microbiology 09/17/17 MRSA Screen - Final, Complete MRSA not isolated Assessment/Plan Assessment/Plan Assess & Plan/Chief Complaint S/P IMN Left femur for displaced basicervical femoral neck fracture, POD #2 Doing well, orthopedically stable, pain controlled. Lovenox for VTE prophylaxis, will d/c to home on EC ASA Current pain control regimen. Continue to mobilize OOB daily with PT/OT, strict NWB LLE. ISB/SCDs D/C planning: plan to d/c patient to home tomorrow. Instructions given Questions answered. Clinical Quality Measures Admission Status Admission Dx A/P: 36 y/o with displaced basicervical fracture Left femoral neck. Unstable injury that will require operative fixation. Remain NPO IV pain control SCDs Plan for OR later this morning. Will plan to protect weight bearing LLE after surgery. She will get VTE prophylaxis with Lovenox post-surgery. Will consult hospitalist for medical management. She will be mobilized OOB daily post-surgery with PT/OT. I discussed the nature of the injury with the patient in detail including the natural history and prognosis. We also discussed the indications for surgery and the operative plan in detail including the risks, benefits, potential complications and expected outcomes. Risks that were discussed included significant bleeding, infection, damage to surrounding neurovascular structures, malunion, nonunion, AVN of the femoral head, hardware failure and potential need for secondary surgical procedures. All of the patient's questions have been answered to her satisfaction. She has given informed written consent to proceed as planned. DVT/VTE Risk/Contraindication: Risk Factor Score Per Nursin RFS Level Per Nursing on Admit: 4+=Very High ANGELITA FALK DO Sep 19, 2017 17:34
--- NOTE | 2017-09-19 17:38 | Discharge Inst-Surgical ---
Discharge Inst-Surgical Depart Medication/Instructions New, Converted or Re-Newed RX: RX on Chart Patient Instructions Please take 325 mg of enteric coated aspirin twice daily for 3 weeks to help prevent blood clots. Consults/Follow Up Goal/Follow Up Appt.: Please follow-up with Dr. Falk at [address], [place] in 2 weeks; please call the office to confirm your appointment. Activity Continue strict non weight bearing on your left leg. Walking Assistive Device: Walker Activity Instructions: Avoid Pulling & Pushing, Avoid Stress to Incision Do Not Lift Over _ Pounds: 10 Driving Instructions: No Driving/Refer to Dr. Kay Discharge Diet: No Restrictions Skin/Wound Care Infection Signs and Symptoms: Increased Redness, Foul Odor of Wound, Increased Drainage, Increased Swelling, Temperature Above 101 F Wound Care Comment: You may remove your dressings in 2 days and shower; no baths or soaking tubs; your bailey will be removed in the office at your first follow-up appointment. Bathing Instructions: Shower Operative Area Clean and Dry: Keep Incision Clean/Dry Stitches/[place]/Dermabond Dis: Care of [place] ANGELITA FALK DO Sep 19, 2017 17:38
[2017-09-19] MEDS ORDERED: OXYC-471 PO (17:42)
[2017-09-19] MEDS: DOCUSATE SODIUM 100 MG (COLACE) CAP PO SCH (19:31)
[2017-09-19 20:00] VITALS: BP 134/79
[2017-09-20] VITALS: BP 120/71
[2017-09-20] MEDS: oxyCODONE/APAP 5/325MG (PERCOCET 5) TABLET PO PRN ×4 (06:42→19:38)
[2017-09-20 08:00] VITALS: BP 112/66
[2017-09-20] MEDS: amLODIPine 10 MG (NORVASC) TAB PO SCH (08:38)
[2017-09-20] MEDS: DOCUSATE SODIUM 100 MG (COLACE) CAP PO SCH (08:38)
[2017-09-20] MEDS: LISINOPRIL 30 MG TABLET PO SCH (08:38)
[2017-09-20] MEDS: ENOXAPARIN 40 MG/0.4 ML (LOVENOX) SYR SC SCH (08:39)
[2017-09-20 16:00] VITALS: BP 122/76
[2017-09-21 03:54] VITALS: BP 122/76
--- NOTE | 2017-09-29 23:30 | OPERATIVE REPORT ---
DATE OF SERVICE: 09/17/2017 PREOPERATIVE DIAGNOSES: Displaced basicervical femoral neck fracture, left proximal femur. POSTOPERATIVE DIAGNOSES: Displaced basicervical femoral neck fracture, left proximal femur. PROCEDURE: Closed reduction followed by placement of cephalomedullary nail, left proximal femur. ATTENDING SURGEON: Dr. Angelita Falk. YARD INSPECTOR: Nitin Chowdary PA-C; Mr. Chowdary's assistance was required secondary to the complexity of the case, the patient's large body habitus, in order to hold necessary retractors, protecting vital neurovascular structures and to increase the efficiency and efficacy of the case; this case would not have been possible without an household personal assistant. IMPLANTS USED: The Synthes short trochanteric femoral nail. ANESTHESIA: General endotracheal. ESTIMATED BLOOD LOSS: 150 mL. COMPLICATIONS: None. SPECIMENS: None. DRAINS: None. BRIEF HISTORY/INDICATIONS: The patient is a 36-year-old female who presented to the [facility] Emergency Department on 09/16/2017 with acute onset of severe left hip pain. The patient states that approximately one month ago, she had slipped on some "ice" strained her left hip. She was given anti-inflammatory medications as treatment at that time. The patient states that that pain got better over the next 2 to 3 weeks, then she sustained another slip followed by significant left hip pain. The patient states that she had increasing pain in the left hip with weightbearing over the ensuing week until she slipped once again trying to get into her shower at which time she had severe left hip pain and inability to bear weight or ambulate on her left lower extremity. Upon presentation to the [facility] ED, plain radiographs of the patient's left femur demonstrated a displaced basicervical fracture of the left femoral neck. Orthopedic service was consulted for definitive management of her injury. The patient had denied any other musculoskeletal complaints. There were no other musculoskeletal injuries. She had severe hip pain with any attempted range of motion, her motor and sensory function was grossly intact throughout her left lower extremity. Her skin was intact. There were no open wounds. I discussed the nature of her injury in detail including the natural history and prognosis as well as the indications for surgery. After discussing the risks, benefits, potential complications and expected outcomes of surgical stabilization, the patient gave informed consent to proceed as planned after all of her questions were answered to her satisfaction. The risks that were discussed included significant bleeding, infection, damage to surrounding neurovascular structures, nonunion, malunion, avascular necrosis of the femoral head, hardware irritation and/or failure, and potential need for secondary surgical procedures. PROCEDURE NOTE: After correctly identifying the patient as the patient in the preoperative holding area and after her left hip was appropriately marked, she was transferred to the operating room. Once in the operating room, she had successful induction of general endotracheal anesthesia and she was transferred to the standard radiolucent fracture table and placed in supine position. All bony prominences were meticulously padded. The operative left leg was secured into the fracture boot of the fracture table and the contralateral extremity was secured to the contralateral spire of the hip fracture table and well-padded in the scissor position. A closed reduction maneuver including traction and rotation was then completed of the left hip. C-arm fluoroscopy in both the AP and lateral planes confirmed that the reduction of the fracture was acceptable. The left hip was then prepped and draped in the routine sterile fashion. Prior to making incisions, we completed an operating room timeout with all parties involved in the case in agreement and verified appropriate infusion of prophylactic antibiotics. Using a 10 blade scalpel, I made an incision of approximately 3 cm in length approximately 3 fingerbreadths proximal to the tip of the greater trochanter incising through the skin and subcutaneous tissue. The threaded guide pin was then inserted into the proximal femur with the appropriate start point under fluoroscopic guidance and advanced to just distal to the lesser trochanter. The opening reamer was then used over the guidepin to open the area relief pilot hole in the greater trochanter in preparation for the femoral nail. A ball tipped guidewire was then inserted into the proximal femur and into the medullary canal and then standard reaming then ensued in stepwise fashion until we were getting a very good chatter with the reamer. The final cephalomedullary nail was then inserted over the guidewire and into the proximal femur to the appropriate depth with light taps of the mallet. Once confirmed with fluoroscopy that the nail was inserted to the appropriate depth, we then inserted the guide pin for the cephalomedullary helical blade into the femoral head and neck under fluoroscopic guidance. The guidepin was placed in the center-center position. Once the guidepin was measured for length, we used the cortical reamer and then the step reamer to prepare the path for the helical blade. The helical blade was then inserted over the guidepin to the appropriate depth in the femoral head and neck with light taps of the mallet under fluoroscopic guidance. Once AP and lateral C-arm views confirmed adequate position of the hardware and maintenance of acceptable reduction of the fracture, the nail was placed under compression through the external compression device in the nail. We then inserted the distal locking bolt to the distal aspect of the nail through the external aiming arm. The nail was then final locked proximally. The external aiming arm was then removed. Final C-arm imaging in both AP and lateral planes confirmed adequate position of the hardware and position of the fracture. The wounds were then irrigated with copious amounts of sterile saline followed by standard closure which included 0 Vicryl for the deep fascia, 2-0 Vicryl for the subcutaneous tissue and bailey for the skin. The patient had sterile dressing applied and was awakened and extubated in the operating room without complications. She was transferred to the PACU in stable condition. She tolerated the procedure quite well. All counts were correct at the end of the case. Job ID: [id number] DocumentID: [id number] Dictated Date: 09/29/2017 16:37:36 Equipment Operator Warehouse Date: 09/29/2017 23:28:56 Dictated By: ANGELITA FALK [facility]STCHESTEROliver
== END 2017-09-20 21:05 | disposition home or self-care (01) | DRG 482 ==
LOC: EDUNIT# 12:15 → ER 12:17 → 4TH 14:28
PROVIDERS: ADMIT Orthopaedic Surgery Orthopaedic Trauma; ATTEND Orthopaedic Surgery Orthopaedic Trauma
PROC: 0QS736Z Reposition Left Upper Femur with Intramedullary Internal Fixation Device, Percutaneous Approach (ICD-10-PCS; principal; 2017-09-17 13:57)
DX: S72.042A Displaced fracture of base of neck of left femur, initial encounter for closed fracture (principal); I10 Essential (primary) hypertension; W19.XXXA Unspecified fall, initial encounter; Y92.012 Bathroom of single-family (private) house as the place of occurrence of the external cause
CPT/HCPCS: 36415; 71045; 73700; 80053; 80061; 82962; 84703; 85007; 85014; 85018; 85025; 85027; 87081; 93005; 94664; 96374; 96376

== ENCOUNTER → 2017-09-16 | Outpatient (CLI) | payer SELFPAY ==
[~2017-09-16] MED LIST: AMLO10TA2 PO; CYCL10TA9 PO; HYDR-3820 PO; IBUP-1780 PO; LISI30TA5 PO; MULT1TAB69 PO; PRD10T PO
--- NOTE | 2017-09-16 11:14 | Diagnostic Imaging Report ---
INDICATION: Left leg pain. Left leg venous Doppler study was performed in the routine fashion with color flow Doppler and waveform analysis. FINDINGS: The left common femoral vein, superficial femoral vein, popliteal vein and visualized portion of the posterior tibial vein show normal compressibility and venous flow patterns. There is normal augmentation. IMPRESSION: No evidence of deep vein thrombosis of the major veins of the left leg. Dictated by: Dictated on workstation # [id number]
--- NOTE | 2017-09-16 11:53 | Diagnostic Imaging Report ---
INDICATION: Left hip pain. COMPARISON: None. FINDINGS: Four radiographic views of the left femur were obtained. There is minimally displaced fracture at the base of the femoral neck. There is mild varus angulation of the distal fracture fragment. Femoral acetabular joint space is maintained. No unexpected radiopaque foreign bodies are seen. There is moderate calcified arterial sclerosis. IMPRESSION: 1. Acute fracture of the proximal left femur as described above. 2. Moderate calcified arterial sclerosis. This is much greater than expected given patient's age. Correlation with underlying risk factors is recommended. Report was called to Dr. Dobbs by sandra at 11:50AM. Dictated by: Dictated on workstation # [id number]
== END ==
LOC: RAD 09:16
PROVIDERS: ATTEND Family Medicine
DX: I70.202 Unspecified atherosclerosis of native arteries of extremities, left leg (principal)
CPT/HCPCS: 73552

== ENCOUNTER → 2020-01-11 | Outpatient (CLI) | payer OTHER ==
[~2020-01-11] VITALS: Ht 154 cm; Wt 145.0 kg
[~2020-01-11] MED LIST changes: +ACHYD1T PO; -AMLO10TA2 PO; +AMLO10TA7 PO; +CATHETER FLUSH 10 ML SYR IV PRN; -HYDR-3820 PO; +MULT-567 PO; -MULT1TAB69 PO; +OXYC-471 PO; +REGADENOSON 0.4 MG/5 ML SYR (LEXISCAN) IV ONE
[2020-01-11 09:33] VITALS: BP 185/123
[2020-01-11 09:37] VITALS: BP 194/118
--- NOTE | 2020-01-11 16:31 | STRESS TEST ---
DATE OF SERVICE: 01/11/2020 RESTING AND POST REGADENOSON TECHNETIUM-99M TETROFOSMIN SPECT CT IMAGING ORDERING PHYSICIAN: Dr. Bob. CLINICAL DIAGNOSES: Chest discomfort, shortness of breath. Baseline images were carried out after injection of 10.4 mCi of technetium-99m Tetrofosmin. This was followed by 0.4 mg regadenoson and 31.3 mCi of technetium-99m Tetrofosmin for stress imaging. The electrocardiogram showed sinus rhythm at baseline and did not change significantly with regadenoson infusion. Review of images at rest and following stress indicates a transient anterolateral perfusion defect that is consistent with ischemia. Gated images show global left ventricular systolic function to be mildly to moderately impaired. There does not appear to be distinct regional wall motion abnormality. Left ventricular ejection fraction is calculated to be 40%. Left ventricular end diastolic volume is 141 mL. TID is absent (0.87). CONCLUSIONS: 1. This study is indicative of anterolateral ischemia. 2. Wybt-fq-hpcbfdnp impairment of global left ventricular systolic function with mild to moderate global hypokinesis and left ventricular ejection fraction 40%. 3. Moderate cardiomegaly. Job ID: [id number] DocumentID: [id number] Dictated Date: 01/11/2020 13:49:27 Energy Derivatives Trader Date: 01/11/2020 16:30:59 Dictated By: FRANCO BOB MD, MA, FACP, FACC,
== END ==
LOC: CARD 07:46
PROVIDERS: ATTEND Internal Medicine Cardiovascular Disease
DX: I51.89 Other ill-defined heart diseases (principal); E66.9 Obesity, unspecified; R07.89 Other chest pain; R06.02 Shortness of breath
CPT/HCPCS: 78452; 93017; A9502

== ENCOUNTER → 2020-01-13 | Outpatient (CLI) | payer OTHER ==
[~2020-01-13] MED LIST changes: -CATHETER FLUSH 10 ML SYR IV PRN; -REGADENOSON 0.4 MG/5 ML SYR (LEXISCAN) IV ONE
== END ==
LOC: CARD 12:42
PROVIDERS: ATTEND Internal Medicine Cardiovascular Disease
DX: I51.7 Cardiomegaly (principal); R07.9 Chest pain, unspecified; R06.02 Shortness of breath; E66.9 Obesity, unspecified
CPT/HCPCS: 93306

== ENCOUNTER 2020-01-24 06:41 | Emergency (ER) | payer SELFPAY ==
[~2020-01-24] VITALS: Ht 154 cm; Wt 145.0 kg
--- OUTSIDE RECORDS SUMMARY | 2020-01-24 06:47 | XMS REPORT | Continuity of Care Document ---
Author Organization Unknown Address Unknown Phone Unavailable Allergies Active Description Code Type Severity Reaction Onset Reported/Identified Relationship to Patient Clinical Status Yes No Known Drug Allergies [id number] Drug Allergy Unknown N/A 09/16/2017 Medications There is no data. 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 11/13/2017 SUBHASH RUVALCABA MD R Ot 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 01/13/2020 ZEV EDMOND FACC, FRANCO FACP CCDS Ot E66.9 OBESITY, UNSPECIFIED 01/13/2020 ZEV EDMOND FACC, FRANCO FACP CCDS Ot 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 01/13/2020 ZEV EDMOND FACC, FRANCO FACP CCDS Ot R06.02 SHORTNESS OF BREATH 01/13/2020 ZEV EDMOND FACC, ALI FACP CCDS Ot R07.89 OTHER CHEST PAIN 01/13/2020 SUBHASH RUVALCABA MD R Ot 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 01/13/2020 ZEV EDMOND FACC, FRANCO FACP CCDS Ot E66.9 OBESITY, UNSPECIFIED 01/13/2020 ZEV MD FACC, ALI FACP CCDS Ot 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 01/13/2020 ZEV EDMOND FACC, ALI FACP CCDS Ot R06.02 SHORTNESS OF BREATH 01/13/2020 ZEV EDMOND FACC, ALI FACP CCDS Ot R07.89 OTHER CHEST PAIN 01/13/2020 PEG EDMOND, SUBHASH R Ot 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 01/13/2020 ZEV EDMOND FACC, ALI FACP CCDS Ot E66.9 OBESITY, UNSPECIFIED 01/13/2020 ZEV EDMOND FACC, ALI FACP CCDS Ot 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 01/13/2020 ZEV EDMOND FACC, ALI FACP CCDS Ot R06.02 SHORTNESS OF BREATH 01/13/2020 ZEV EDMOND FACC, ALI FACP CCDS Ot R07.89 OTHER CHEST PAIN 01/13/2020 PEG EDMOND, SUBHASH R Ot 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 01/13/2020 ZEV EDMOND FACC, ALI FACP CCDS Ot E66.9 OBESITY, UNSPECIFIED 01/13/2020 ZEV EDMOND FACC, ALI FACP CCDS Ot 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 01/13/2020 ZEV EDMOND FACC, ALI FACP CCDS Ot R06.02 SHORTNESS OF BREATH 01/13/2020 ZEV EDMOND FACC, ALI FACP CCDS Ot R07.89 OTHER CHEST PAIN 01/17/2020 ZEV EDMOND FACC, ALI FACP CCDS Ot E66.9 OBESITY, UNSPECIFIED 01/17/2020 ZEV EDMOND FACC, ALI FACP CCDS Ot I51.7 CARDIOMEGALY 01/17/2020 ZEV EDMOND FACC, ALI FACP CCDS Ot R06.02 SHORTNESS OF BREATH 01/17/2020 ZEV EDMOND FACC, ALI FACP CCDS Ot R07.9 CHEST PAIN, UNSPECIFIED Procedures Code Description Performed By Per formed On [id number] RE POSITION LEFT UPPER FEMUR WITH INTRAME 09/17/2017 [id number] RE POSITION LEFT UPPER FEMUR WITH INTRAME 09/17/2017 Results Test Result Range Complete blood count (CBC) with automate d white blood cell (WBC) differential - 09/16/17 12:30 Blood leukocytes automated count (number/volume) 20.8 10*3/uL 4.3-11.0 Blood erythrocytes automated count (number/volume) 5.19 10*6/uL 4.35-5.85 Venous blood hemoglobin measurement (mass/volume) 13.3 g/dL 11.5-16.0 Blood hematocrit (volume fraction) 42 % 35-52 Automated erythrocyte mean corpuscular volume 81 [ foz_us] 80-99 Automated erythrocyte mean corpuscular h emoglobin (mass per erythrocyte) 26 pg 25-34 Automated erythrocyte mean corpuscular h emoglobin concentration measurement (mass/volume) 32 g/dL 32-36 Automated erythrocyte distribution width ratio 18. 4 % 10.0- 14.5 Automated blood platelet count (count/volume) 429 10*3/uL 130-400 Automated blood platelet mean volume measurement 9.3 [foz_us] 7.4-10.4 Automated blood neutrophils/100 leukocytes 84 % 42-75 Automated blood lymphocytes/100 leukocytes 8 % 12-44 Blood monocytes/100 leukocytes 7 % 0-12 Automated blood eosinophils/100 leukocytes 0 % 0-10 Automated blood basophils/100 leukocytes 0 % 0-10 Blood neutrophils automated count (number/volume) 17.6 10*3 1.8-7.8 Blood lymphocytes automated count (number/volume) 1.7 10*3 1.0-4.0 Blood monocytes automated count (number/volume) 1. 4 10*3 0.0-1.0 Automated eosinophil count 0.0 10*3/uL 0 .0-0.3 Automated blood basophil count (count/volume) 0.1 10*3/uL 0.0-0.1 Comprehensive metabolic panel - 09/16/17 12:30 Serum or plasma sodium measurement (moles/volume) 140 mmol/L 135-145 Serum or plasma potassium measurement (moles/volume) 4.0 mmol/L 3.6-5.0 Serum or plasma chloride measurement (moles/volume) 103 mmol/L 98-107 Carbon dioxide 22 mmol/L 21-32 Serum or plasma anion gap determination (moles/volume) 15 mmol/L 5-14 Serum or plasma urea nitrogen measurement (mass/volume ) 20 mg/dL 7-18 Serum or plasma creatinine measurement (mass/volume) 0.85 mg/dL 0.60-1.30 Serum or plasma urea nitrogen/creatinine mass ratio 24 NRG Serum or plasma creatinine measurement w ith calculation of estimated glomerular filtration rate > NRG Serum or plasma glucose measurement (mass/volume) 169 mg/dL 70-105 Serum or plasma calcium measurement (mass/volume) 9.2 mg/dL 8.5-10.1 Serum or plasma total bilirubin measurement (mass/volu me) 0.4 mg/dL 0.1-1.0 Serum or plasma alkaline phosphatase samuel surement (enzymatic activity/volume) 72 U/L 40-136 Serum or plasma aspartate aminotransfera se measurement (enzymatic activity/volume) 13 U/L 5-34 Serum or plasma alanine aminotransferase measurement (enzymatic activity/volume) 23 U/L 0-55 Serum or plasma protein measurement (mass/volume) 6.8 g/dL 6.4-8.2 Serum or plasma albumin measurement (mass/volume) 4.1 g/dL 3.2-4.5 Lipid 1996 panel - 09/16/17 12:30 Serum or plasma triglyceride measurement (mass/volume) 267 mg/dL <150 Serum or plasma cholesterol measurement (mass/volume) 285 mg/dL < 200 Serum or plasma cholesterol in HDL measurement (mass/v olume) 41 mg/dL 40-60 Cholesterol in LDL [mass/volume] in serum or plasma by direct assay 207 mg/dL 1-129 Serum or plasma cholesterol in VLDL measurement (mass/ volume) 53 mg/dL 5-40 Blood manual differential performed dete ction - 09/16/17 12:30 Blood monocytes/100 leukocytes 3 % NRG Manual blood segmented neutrophils/100 leukocytes 85 % NRG Blood band neutrophils/100 leukocytes 3 % NRG Manual blood lymphocytes/100 leukocytes 9 % NRG Manual eosinophils/100 leukocytes in nose 0 % NRG Manual blood basophils/100 leukocytes 0 % NRG Blood anisocytosis detection by light microscopy S LIGHT NRG Methicillin resistant Staphylococcus aur eus (MRSA) screening culture - 09/17/17 05:30 Methicillin resistant Staphylococcus aureus (MRSA) scr eening culture NEG NRG Urine beta human chorionic gonadotropin (hCG) measurement - 09/17/17 13:26 Urine beta human chorionic gonadotropin (hCG) measurem ent NEGATIVE NEGATIVE Whole blood hemoglobin and hematocrit pa kimberli - 09/18/17 05:25 Venous blood hemoglobin measurement (mass/volume) 10.3 g/dL 11.5-16.0 Blood hematocrit (volume fraction) 33 % 35-52 Capillary blood glucose measurement by g lucometer (mass/volume) - 09/20/17 06:04 Capillary blood glucose measurement by glucometer (mas s/volume) 133 mg/dL 70-110 Encounters ACCT No. Visit Date/Time Discharge Status Pt. Type Provider Facility Loc./Unit Complaint [id number] 08/13/2019 10:00:00 08/13/2019 23:59: 59 [facility] [id number] 01/13/2020 12:42:00 23:59:59 CLS Outpatient ZEV EDMOND FACC, FRANCO LEBLANC CC DS [facility] CARD CHEST DISCOMFORT,SOB,OBESITY [id number] 01/11/2020 07:46:00 23:59:59 CLS Outpatient ZEV EDMOND FACC, FRANCO LEBLANC CC DS [facility] CARD CHEST DISCOMFORT,SOB,OBESITY [id number] 09/16/2017 14:28:00 018 21:05:00 DIS Inpatient ANGELITA FALK DO [facility] 4TH L FEMORAL NECK FRACTURE [id number] 09/16/2017 09:16:00 018 23:59:59 CLS Outpatient SUBHASH RUVALCABA MD [facility] RAD M25.552
[2020-01-24] MEDS ORDERED: ceFAZolin INJECTION 1,000 MG in WATER (STERILE) FOR INJECTION 10 ML IV ONE (07:15)
[2020-01-24] MEDS ORDERED: TETANUS,DIPTH,PERTUSS P/F (BOOSTRIX) 0.5 ML VIAL IM ONE (07:15)
[2020-01-24 07:45] LABS: HEMOGLOBIN 11.6 G/DL (11.5-16.0); MEAN PLATELET VOLUME 8.9 FL (7.4-10.4); RED CELL DISTRIBUTION WIDTH 17.9 % (10.0-14.5); WHITE BLOOD COUNT 9.1 10^3/uL (4.3-11.0)
[2020-01-24] MEDS ORDERED: LIDOCAINE/EPI 2% 1:100,00 (XYLOCAINE) 20 ML VIAL INJ ONE (07:45)
--- NOTE | 2020-01-24 07:46 | Diagnostic Imaging Report ---
HISTORY: Fall this morning with pain and laceration to the right knee. TECHNIQUE: 3 views of the right knee. COMPARISON: None FINDINGS: No acute fracture or dislocation is seen in the right knee. Alignment appears normal. Joint spaces are preserved. There is a soft tissue laceration anterior to the patella. There is calcific atherosclerosis. No radiopaque foreign body is seen. IMPRESSION: 1. Prepatellar soft tissue laceration with no acute osseous abnormalities seen in the right knee. Dictated by: Dictated on workstation # [id number]
[2020-01-24] MEDS ORDERED: fentaNYL INJECTION 100 MCG/2 ML AMP ONE (07:47)
--- NOTE | 2020-01-24 08:28 | ED Lower Extremity ---
General Chief Complaint: Lower Extremity Stated Complaint: RT LEG LACERATION Nursing Triage Note: ARRIVED VIA WC TO ROOM 07. STATES HER LEFT LEG GAVE OUT ON HER CAUSING HER TO FALL ONTO HER RIGHT LEG. LARGE LACERATION NOTED RIGHT KNEE THAT HAS A SMALL VESSEL THAT IS PULSATING BLOOD. PT HAS AREA COVERED IN WHAT LOOKS LIKE HOUSE INSTALLATION. DR BROUGHT INTO THE ROOM TO LOOK AT THE LACERATION. Nursing Sepsis Screen: No Definite Risk Source: patient Exam Limitations: no limitations History of Present Illness Date Seen by Provider: Jan 24, 2020 Time Seen by Provider: 07:00 Initial Comments Patient presents to ER by private conveyance with family and chief complaint that just prior to arrival she was walking out to take her dogs out on the back porch and she fell down onto a board on her deck. She struck her right knee causing a large laceration. She's not on blood thinners. She's not diabetic or having any immunocompromise. She denies loss of consciousness nor strike her head. She takes medicines for blood pressure. She follows with Dr. Maxi Soni and recently did a stress test by Dr. Bob because she was having some shortness of breath and chest pain but she's not having any of the symptoms today. Allergies and Home Medications Allergies Coded Allergies: No Known Drug Allergies (Unverified , 09/16/17) Home Medications Amlodipine Besylate 10 Mg Tablet, 10 MG PO DAILY, (Reported) Cyclobenzaprine HCl 10 Mg Tablet, 10 MG PO HS, (Reported) FILLED 09/12/16 #7 FOR A 7 DAY THERAPY Lisinopril 30 Mg Tablet, 30 MG PO DAILY, (Reported) Multivitamin 1 Each Tablet, 1 TAB PO DAILY, (Reported) Oxycodone HCl/Acetaminophen 1 Each Tablet, 1-2 TAB PO Q4H PRN for PAIN-SEVERE Prescribed by: ANGELITA FALK on 09/19/17 6620 Patient Home Medication List Home Medication List Reviewed: Yes Review of Systems Constitutional: No chills, No fever EENTM: No ear discharge, No ear pain Respiratory: No cough, No short of breath Cardiovascular: No edema, No vascular heart diseas Gastrointestinal: No abdominal pain, No constipation, No diarrhea Genitourinary: No discharge, No dysuria All Other Systems Reviewed Negative Unless Noted: Yes Past Qrryuwh-Zzopmb-Uxuvrj Hx Patient Social History Alcohol Use: Denies Use Recreational Drug Use: No Smoking Status: Never a Smoker Recent Foreign Travel: No Contact w/Someone Who Travel: No Recent Infectious Disease Expo: No Recent Hopitalizations: No Seasonal Allergies Seasonal Allergies: No Past Medical History Surgeries: Yes Tonsillectomy Respiratory: No Cardiac: Yes Hypertension Neurological: No Genitourinary: No Gastrointestinal: No Musculoskeletal: No Endocrine: No HEENT: No Cancer: No Psychosocial: No Integumentary: No Blood Disorders: No Family Medical History No Pertinent Family Hx Physical Exam Vital Signs Vital Signs - First Documented 01/24/20 07:05 Temp 37.0 Pulse 75 Resp 16 B/P (MAP) 153/105 (121) Pulse Ox 96 O2 Delivery Room Air Capillary Refill : Less Than 3 Seconds Height, Weight, BMI Height: 5'2.00" Weight: 280lbs. 0.0oz. 127.427539hq; 61.00 BMI Method:Stated General Appearance: WD/WN, no apparent distress HEENT: PERRL/EOMI, pharynx normal Neck: full range of motion, normal inspection Cardiovascular: normal peripheral pulses, regular rate, rhythm Respiratory: no respiratory distress, no accessory muscle use Legs: bilateral leg non-tender, bilateral leg normal inspection, bilateral leg normal range of motion, bilateral leg no evidence of injury Knees: left knee non-tender, left knee normal inspection, left knee normal range of motion, left knee no evidence of injury; right knee pain, right knee soft tissue tenderness, right knee other (laceration 12 cm anterior right knee just at the level of the superior border of the patella, gaped exposing the fascia layer.) Ankles: bilateral ankle non-tender, bilateral ankle normal inspection, bilateral ankle normal range of motion, bilateral ankle no evidence of injury Neurologic/Tendon: normal sensation, normal motor functions, normal tendon functions, responds to pain, no evidence tendon injury Neurologic/Psychiatric: no motor/sensory deficits, alert, normal mood/affect Skin: normal color, warm/dry, other (laceration above the right knee) Procedures/Interventions Wound Location: Lower Extremities Other Wound Location Right knee Wound's Depth, Shape: linear, bone, sub Q Wound Explored: no foreign body removed Irrigated w/ Saline (ccs): 3000 Betadine Prep?: Yes (as well as chlorhexidine and sterile saline) Anesthesia: Lidocaine w/ Epi (2%) Volume Anesthetic (ccs): 14 Wound Debrided: minimal Suture: Ethlion Suture Size: 2-0 Number of Sutures: 7 Layer Closure?: 2 Number Deep Layer Sutures: 3 Sterile Dressing Applied?: Yes Progress Wound was scrubbed with Betadine and then chlorhexidine and sterile saline. We then infiltrated the wound edges with lidocaine 2% with epinephrine until she had good anesthesia. 75 g of fentanyl were given for pain. Patient tolerated the procedure well. We explored the wound flushing thoroughly using over 3 L of sterile saline. The medial half of the wound was down to the fascia but not through the fascia. This wound was closed with wide gaped simple interrupted 2-0 Ethilon. The lateral half of the wound had a laceration into the fascia but the patella did not show any damage overtly nor was the superior patellar ligament lacerated. This space was thoroughly flushed with sterile saline and chlorhexidine followed by saline again. The fascia was closed using 3-0 Vicryl 3 sutures. We then flushed out the undermined skin and subcutaneous fat thoroughly and reapproximated with 2-0 Ethilon. The wound was then again soaked with Betadine and dressed with a sterile dressing per nursing. Progress/Results/Core Measures Results/Orders Lab Results Laboratory Tests Test 01/24/20 07:35 Range/Units White Blood Count 9.1 4.3-11.0 10^3/uL Red Blood Count 4.67 4.35-5.85 10^6/uL Hemoglobin 11.6 11.5-16.0 G/DL Hematocrit 39 35-52 % Mean Corpuscular Volume 84 80-99 FL Mean Corpuscular Hemoglobin 25 25-34 PG Mean Corpuscular Hemoglobin Concent 30 L 32-36 G/DL Red Cell Distribution Width 17.9 H 10.0-14.5 % Platelet Count 367 130-400 10^3/uL Mean Platelet Volume 8.9 7.4-10.4 FL My Orders Orders - ALVARO JOSE Knee, Right, 3 Views (01/24/20 07:14) Dipht,Pertuss(Acell),Tet Adult (Boostrix (01/24/20 07:15) Cefazolin Injection (Ancef Injection) (01/24/20 07:15) Cbc No Diff (01/24/20 07:14) Lidocaine/Epi 2% 1:100,000 (Xylocaine/Ep (01/24/20 07:45) Fentanyl Injection (Sublimaze Injection (01/24/20 07:47) Medications Given in ED Current Medications Medications Dose Ordered Sig/Walter Route Start Time Stop Time Status Last Admin Dose Admin Diphtheria/ Tetanus/Acell Pertussis 0.5 ml ONCE ONCE IM 01/24/20 07:15 01/24/20 07:16 DC 01/24/20 08:15 0.5 ML Vital Signs/I&O 01/24/20 07:05 Temp 37.0 Pulse 75 Resp 16 B/P (MAP) 153/105 (121) Pulse Ox 96 O2 Delivery Room Air Blood Pressure Mean: 121 Progress Progress Note : Time: 08:28 Progress Note Ancef 1 g. Hemogram unremarkable. Tetanus vaccination given. X-ray did not reveal any significant foreign bodies. Diagnostic Imaging Diagonstic Imaging: Xray Plain Films/CT/US/NM/MRI: knee (right) Comments NAME: MEGHAN CORONA [facility] REC#: [id number] PT STATUS: REG ER : 1980 PHYSICIAN: ALVARO JOSE MD ADMIT DATE: 01/24/20/ER Draft Date of Exam:01/24/20 KNEE, RIGHT, 3 VIEWS HISTORY: Fall this morning with pain and laceration to the right knee. TECHNIQUE: 3 views of the right knee. COMPARISON: None FINDINGS: No acute fracture or dislocation is seen in the right knee. Alignment appears normal. Joint spaces are preserved. There is a soft tissue laceration anterior to the patella. There is calcific atherosclerosis. No radiopaque foreign body is seen. IMPRESSION: 1. Prepatellar soft tissue laceration with no acute osseous abnormalities seen in the right knee. Dictated on workstation # [id number] Dict: 01/24/20 0740 Trans: 01/24/20 0746 [id number] Interpreted by: DEISY RECINOS MD Electronically signed by: Reviewed: Reviewed by Me Departure Impression Primary Impression: Fall Qualified Codes: W19.XXXA - Unspecified fall, initial encounter Additional Impression: Laceration of right knee Qualified Codes: S81.011A - Laceration without foreign body, right knee, initial encounter Disposition: 01 HOME, SELF-CARE Condition: Improved Departure-Patient Inst. Decision time for Depature: 08:25 Referrals: SUBHASH RUVALCABA MD (PCP/Family) Primary Care Physician Patient Instructions: Laceration Repair With Stitches (DC) Add. Discharge Instructions: Keep the wound clean with regular soap and water only. Do not use anti- astringent's such as iodine, hydrogen peroxide, alcohol etc. Take the antibiotics 4 times a day for the next week. Take it with 3 meals and at bedtime. If you develop a yeast infection you may take a Diflucan tablet. If you have pain use Tylenol 650 mg every 8 hours as needed. If you still have pain you may use the hydrocodone one tablet every 6 hours as needed for breakthrough pain. Hydrocodone will cause drowsiness increasing your risk of falls as well as constipation. MiraLAX once a day can be helpful to keep your regular while on hydrocodone. Plan to follow up later this week with Dr. Soni by calling for an appointment in 3-5 days to have the leg reexamined. The sutures need to be removed in 10-14 days. You are welcome to return to the ER to have this done. If you have worsening redness going up your thigh, fever or nausea and vomiting then you should follow-up with your doctor or return to the ER. Change the dressing at least daily but more often if it becomes soiled. You may wrap it with an Noel bandage for increased compression to decrease the swelling. Keep the leg elevated above the level of your heart when not in use. Minimize the use of your leg for the next week. All discharge instructions reviewed with patient and/or family. Voiced understanding. Scripts Fluconazole (Diflucan) 200 Mg Tablet 200 MG PO ONCE for 1 Day, #1 TAB 0 Refills Prov: ALVARO JOSE 01/24/20 Hydrocodone/Acetaminophen (Hydrocodone-Acetamin 5-325 mg) 1 Each Tablet 1 EACH PO Q6H PRN for PAIN-BREAKTHROUGH, #15 TAB 0 Refills Prov: ALVARO JOSE 01/24/20 Cephalexin (Keflex) 500 Mg Capsule 500 MG PO QID for 7 Days, #28 CAP 0 Refills Prov: ALVARO JOSE 01/24/20 Work/School Note: Work Release Form Date Seen in the Emergency Department: Jan 24, 2020 Return to Work: Jan 26, 2020 Restrictions: No Sports-Until Released Other Restrictions Listed Below: Keep right leg elevated. Minimalize walking. ALVARO JOSE Jan 24, 2020 08:28
[2020-01-24] MEDS ORDERED: HYDR-83 PO (08:38)
[2020-01-24] MEDS ORDERED: CEPH-507 PO (08:38)
[2020-01-24] MEDS ORDERED: FLUC200T PO (08:38)
[2020-01-24] MEDS ORDERED: fentaNYL INJECTION 100 MCG/2 ML AMP IVP ONE (08:45)
[2020-01-24 08:47] VITALS: BP 153/105
== END 2020-01-24 08:47 | disposition home or self-care (01) ==
LOC: EDUNIT# 06:41 → ER 06:43
DX: S81.011A Laceration without foreign body, right knee, initial encounter (principal); I10 Essential (primary) hypertension; W19.XXXA Unspecified fall, initial encounter; W22.8XXA Striking against or struck by other objects, initial encounter
CPT/HCPCS: 12034; 36415; 73562; 85027; 90715

== ENCOUNTER 2021-01-07 14:54 | Inpatient (IN) | payer SELFPAY ==
[~2021-01-07] VITALS: Ht 157.5 cm; Wt 127.0 kg
[~2021-01-07 14:54] MED LIST changes: +ACHD5005 PO; +AMLO-251 PO; -AMLO10TA7 PO; +CEPH-507 PO; +FLUC200T PO; -OXYC-471 PO; +OXYC1TAB11 PO
[2021-01-07 15:23] LABS: ALBUMIN 2.7 GM/DL (3.2-4.5); POTASSIUM 4.2 MMOL/L (3.6-5.0)
[2021-01-07 15:24] LABS: CALCIUM 9.6 MG/DL (8.5-10.1)
[2021-01-07 15:26] LABS: TOTAL PROTEIN 6.5 GM/DL (6.4-8.2)
[2021-01-07 15:27] LABS: BILIRUBIN,TOTAL 0.4 MG/DL (0.1-1.0)
[2021-01-07 15:29] LABS: BASOPHILS % (AUTO) 0 % (0-10); CREATININE SERUM 1.78 MG/DL (0.60-1.30); EOSINOPHILS % (AUTO) 0 % (0-10); HEMATOCRIT 30 % (35-52); HEMOGLOBIN 8.4 g/dL (11.5-16.0); LYMPHOCYTES # (AUTO) 0.7 X 10^3 (1.0-4.0); LYMPHOCYTES % (AUTO) 5 % (12-44); MEAN CORPUSCULAR HEMOGLOBIN 20 pg (25-34); MEAN CORPUSCULAR HGB CONC 29 g/dL (32-36); MEAN CORPUSCULAR VOLUME 71 fL (80-99); MEAN PLATELET VOLUME 9.9 fL (9.0-12.2); MONOCYTES # (AUTO) 0.3 X 10^3 (0.0-1.0); MONOCYTES % (AUTO) 2 % (0-12); NEUTROPHILS # (AUTO) 11.9 X 10^3 (1.8-7.8); NEUTROPHILS % (AUTO) 90 % (42-75); WHITE BLOOD COUNT 13.3 10^3/uL (4.3-11.0)
[2021-01-07 15:53] LABS: BAND NEUTROPHILS 8 %; BURR CELLS MODERATE; HYPOCHROMASIA MODERATE; LYMPHOCYTES % (MANUAL) 15 %; MICROCYTOSIS MODERATE; MONOCYTES % (MANUAL) 2 %; NEUTROPHILS % (MANUAL) 75 %; NUCLEATED RED BLOOD CELLS 1
[2021-01-07 15:54] LABS: PLATELET COUNT 443 10^3/uL (130-400)
[2021-01-07] MEDS ORDERED: NS IV 1000 ML 1,000 ML IV SCH (16:00)
[2021-01-07 16:15] LABS: ABG BASE EXCESS -13.5 MMOL/L (-2.5-2.5); ABG OXYGEN SATURATION 99 % (94-100); ABG PH 7.37 (7.37-7.43); ABG PO2 116 MMHG (79-93); ABG TCO2 11.6 MMOL/L (21.0-31.0)
--- NOTE | 2021-01-07 16:15 | ED Respiratory ---
General Chief Complaint: Respiratory Problems Stated Complaint: SOB/PAIN ALL OVER Nursing Triage Note: Pt arrival to ER via wheelchair with complaint of SOA since last night at 1700 hours while at a family/friend gathering. Pt states that its progressively gotten worse. Pt also complains of pain from head to toe. Significant other states that both are new for her. Pain rated at a 10/10 Source: patient Exam Limitations: no limitations History of Present Illness Date Seen by Provider: Jan 07, 2021 Time Seen by Provider: 16:11 Initial Comments To ER by private vehicle with reports of shortness of breath since last night. noticed it while coming home from [place] at a family gathering. Patient has had fevers and chills for about 2 to 3 days. She reports that she has diffuse general pain which is unusual for her as is the shortness of breath. She is morbidly obese with a large pannus and states that it is more red than usual. She follows with Dr. Maxi Soni. Her medications are Metformin, Norvasc, Lasix, another antidiabetic injection. Timing/Duration: constant Severity: moderate Prior Episodes/Possible Cause: no prior episodes Associated Symptoms: shortness of breath Allergies and Home Medications Allergies Coded Allergies: No Known Drug Allergies (Unverified , 09/16/17) Home Medications Amlodipine Besylate 10 Mg Tablet, 10 MG PO DAILY, (Reported) Cephalexin 500 Mg Capsule, 500 MG PO QID Prescribed by: ALVARO JOSE on 01/24/20837 Cyclobenzaprine HCl 10 Mg Tablet, 10 MG PO HS, (Reported) FILLED 09/12/16 #7 FOR A 7 DAY THERAPY Fluconazole 200 Mg Tablet, 200 MG PO ONCE Prescribed by: ALVARO JOSE on 01/24/20 08 Hydrocodone/Acetaminophen 1 Each Tablet, 1 EACH PO Q6H PRN for PAIN-BREAKTHROUGH Prescribed by: ALVARO JOSE on 01/24/20837 Lisinopril 30 Mg Tablet, 30 MG PO DAILY, (Reported) Multivitamin 1 Each Tablet, 1 TAB PO DAILY, (Reported) Oxycodone HCl/Acetaminophen 1 Each Tablet, 1-2 TAB PO Q4H PRN for PAIN-SEVERE Prescribed by: ANGELITA FALK on 09/19/17 2412 Patient Home Medication List Home Medication List Reviewed: Yes Review of Systems Review of Systems Constitutional: see HPI, chills, fever EENTM: see HPI Respiratory: no symptoms reported Cardiovascular: no symptoms reported Genitourinary: no symptoms reported Musculoskeletal: no symptoms reported Skin: no symptoms reported Psychiatric/Neurological: No Symptoms Reported Hematologic/Lymphatic: No Symptoms Reported Immunological/Allergic: no symptoms reported Past Jqlzmpb-Pgsntp-Fpugvq Hx Patient Social History Alcohol Use: Denies Use Recent Infectious Disease Expo: No Recent Hopitalizations: No Seasonal Allergies Seasonal Allergies: No Past Medical History Surgeries: Yes Tonsillectomy Respiratory: No Cardiac: Yes Hypertension Neurological: No Genitourinary: No Gastrointestinal: No Musculoskeletal: No Endocrine: No HEENT: No Cancer: No Psychosocial: No Integumentary: No Blood Disorders: No Family Medical History No Pertinent Family Hx Physical Exam Vital Signs - First Documented 01/07/21 14:59 Temp 36.1 Pulse 129 Resp 30 B/P (MAP) 102/75 (84) O2 Delivery Room Air Capillary Refill : Less Than 3 Seconds Height: 5'2.00" Weight: 280lbs. 0.0oz. 127.000581ln; 55.00 BMI Method:Stated General Appearance: obese, other (Moderate distress. Tachypneic with a respiratory rate of 35. Tachycardic rate of 123. Blood pressure soft at 106/75. She is lethargic, and answers with only short phrases.) Eyes: Bilateral Eye Normal Inspection, Bilateral Eye PERRL HEENT: PERRL/EOMI, normal ENT inspection Neck: non-tender, full range of motion Respiratory: no respiratory distress, no accessory muscle use Cardiovascular: tachycardia Gastrointestinal: normal bowel sounds, non tender, soft Skin: normal color, warm/dry, other (She has a mottled appearance of bilateral lower extremities, states this is a usual appearance for her but it seems a bit darker than normal. She also has some slight erythema of the pannus which is very large. She has an erythematous half dollar sized area to the medial/dorsal aspect of the right foot) Focused Exam Sepsis Stage: Severe Sepsis Possible Source: Skin/Soft Tissue Lactate Level 01/07/21 16:17: Lactic Acid Level 7.62*H Time of Focused Exam: 16:54 Respiratory: No Accessory Muscle Use, No Respiratory Distress Cardiovascular: Regular Rate, Rhythm, Normal Peripheral Pulses Capillary Refill: Less Than 3 Seconds Skin: pallor Lactic Acid Level Laboratory Tests Test 01/07/21 16:17 Lactic Acid Level 7.62 MMOL/L (0.50-2.00) *H Within 3hrs of presentation: Admin fluids, Admin 30ml/kg IBW due to BMI>30, Admin ABX, Blood cultures prior to ABX's, Focus exam, Lactate level Procedures/Interventions Suture Size: 2-0 Progress/Results/Core Measures Suspected Sepsis Recent Fever Within 48 Hours: No Infection Criteria Present: None New/Unexplained Altered Menta: No Sepsis Screen: No Definite Risk SIRS Temperature: Pulse: 129 Respiratory Rate: 30 Laboratory Tests 01/07/21 15:02: White Blood Count 13.3H Blood Pressure 102 /75 Mean: 84 01/07/21 16:17: Lactic Acid Level 7.62*H Laboratory Tests 01/07/21 15:02: Creatinine 1.78H, Platelet Count 443H, Total Bilirubin 0.4 01/07/21 16:17: Results/Orders Lab Results Laboratory Tests Test 01/07/21 15:02 01/07/21 15:07 01/07/21 15:31 01/07/21 16:09 Range/Units White Blood Count 13.3 H 4.3-11.0 10^3/uL Red Blood Count 4.16 3.80-5.11 10^6/uL Hemoglobin 8.4 L 11.5-16.0 g/dL Hematocrit 30 L 35-52 % Mean Corpuscular Volume 71 L 80-99 fL Mean Corpuscular Hemoglobin 20 L 25-34 pg Mean Corpuscular Hemoglobin Concent 29 L 32-36 g/dL Red Cell Distribution Width 19.1 H 10.0-14.5 % Platelet Count 443 H 130-400 10^3/uL Mean Platelet Volume 9.9 9.0-12.2 fL Immature Granulocyte % (Auto) 3 % Neutrophils (%) (Auto) 90 H 42-75 % Lymphocytes (%) (Auto) 5 L 12-44 % Monocytes (%) (Auto) 2 0-12 % Eosinophils (%) (Auto) 0 0-10 % Basophils (%) (Auto) 0 0-10 % Neutrophils # (Auto) 11.9 H 1.8-7.8 X 10^3 Lymphocytes # (Auto) 0.7 L 1.0-4.0 X 10^3 Monocytes # (Auto) 0.3 0.0-1.0 X 10^3 Eosinophils # (Auto) 0.0 0.0-0.3 10^3/uL Basophils # (Auto) 0.0 0.0-0.1 10^3/uL Immature Granulocyte # (Auto) 0.4 H 0.0-0.1 10^3/uL Neutrophils % (Manual) 75 % Lymphocytes % (Manual) 15 % Monocytes % (Manual) 2 % Band Neutrophils 8 % Nucleated Red Blood Cells 1 Hypochromasia MODERATE Microcytosis MODERATE Elvi Cells MODERATE Sodium Level 140 135-145 MMOL/L Potassium Level 4.2 3.6-5.0 MMOL/L Chloride Level 108 H 98-107 MMOL/L Carbon Dioxide Level 9 *L 21-32 MMOL/L Anion Gap 23 H 5-14 MMOL/L Blood Urea Nitrogen 39 H 7-18 MG/DL Creatinine 1.78 H 0.60-1.30 MG/DL Estimat Glomerular Filtration Rate 32 BUN/Creatinine Ratio 22 Glucose Level 288 H 70-105 MG/DL Calcium Level 9.6 8.5-10.1 MG/DL Corrected Calcium 10.6 H 8.5-10.1 MG/DL Total Bilirubin 0.4 0.1-1.0 MG/DL Aspartate Amino Transf (AST/SGOT) 21 5-34 U/L Alanine Aminotransferase (ALT/SGPT) 30 0-55 U/L Alkaline Phosphatase 169 H 40-136 U/L B-Type Natriuretic Peptide 407.1 H <100.0 PG/ML Total Protein 6.5 6.4-8.2 GM/DL Albumin 2.7 L 3.2-4.5 GM/DL Serum Test, Qualitative NEGATIVE NEGATIVE Salicylates Level < 5.0 L 5.0-20.0 MG/DL Serum Alcohol < 10 <10 MG/DL Influenza Type A (RT-PCR) Not Detected Not Detecte Influenza Type B (RT-PCR) Not Detected Not Detecte SARS-CoV-2 RNA (RT-PCR) Not Detected Not Detecte Blood Gas Puncture Site TBD Blood Gas Patient Temperature 36.1 Arterial Blood pH 7.37 7.37-7.43 Arterial Blood Partial Pressure CO2 19 *L 35-45 MMHG Arterial Blood Partial Pressure O2 116 H 79-93 MMHG Arterial Blood HCO3 11 *L 23-27 MMOL/L Arterial Blood Total CO2 11.6 L 21.0-31.0 MMOL/L Arterial Blood Oxygen Saturation 99 94-100 % Arterial Blood Base Excess -13.5 L -2.5-2.5 MMOL/L Denilson Test YES-POS Blood Gas Ventilator Setting NO Blood Gas Inspired Oxygen 2 Test 01/07/21 16:17 01/07/21 16:30 Range/Units D-Dimer 8.94 H 0.00-0.49 UG/ML Lactic Acid Level 7.62 *H 0.50-2.00 MMOL/L Beta-Hydroxybutyrate (Chem panel) 0.16 0.00-0.27 MMOL/L Urine Color YELLOW Urine Clarity SL CLOUDY Urine pH 5.0 5-9 Urine Specific [place] >=1.030 1.016-1.022 Urine Protein 1+ H NEGATIVE Urine Glucose (UA) 1+ H NEGATIVE Urine Ketones TRACE H NEGATIVE Urine Nitrite NEGATIVE NEGATIVE Urine Bilirubin 1+ H NEGATIVE Urine Urobilinogen 1.0 < = 1.0 MG/DL Urine Leukocyte Esterase NEGATIVE NEGATIVE Urine RBC (Auto) NEGATIVE NEGATIVE Urine RBC RARE /HPF Urine WBC RARE /HPF Urine Squamous Epithelial Cells 2-5 /HPF Urine Crystals NONE /LPF Urine Bacteria TRACE /HPF Urine Casts NONE /LPF Urine Mucus NEGATIVE /LPF Urine Culture Indicated NO Urine Opiates Screen POSITIVE H NEGATIVE Urine Oxycodone Screen NEGATIVE NEGATIVE Urine Methadone Screen NEGATIVE NEGATIVE Urine Propoxyphene Screen NEGATIVE NEGATIVE Urine Barbiturates Screen NEGATIVE NEGATIVE Ur Tricyclic Antidepressants Screen NEGATIVE NEGATIVE Urine Phencyclidine Screen NEGATIVE NEGATIVE Urine Amphetamines Screen POSITIVE H NEGATIVE Urine Methamphetamines Screen NEGATIVE NEGATIVE Urine Benzodiazepines Screen NEGATIVE NEGATIVE Urine Cocaine Screen NEGATIVE NEGATIVE Urine Cannabinoids Screen NEGATIVE NEGATIVE My Orders Orders - CONSTANCE URENA APRN Covid 19 Inhouse Test (01/07/21 15:07) Influenza A And B By Pcr (01/07/21 15:07) Cbc With Automated Diff (01/07/21 15:07) Comprehensive Metabolic Panel (01/07/21 15:07) Ua Culture If Indicated (01/07/21 15:07) Hcg,Qualitative Serum (01/07/21 15:07) Ed Iv/Invasive Line Start (01/07/21 15:07) Fibrin Degradation Products (01/07/21 15:07) BNP (01/07/21 15:07) Manual Differential (01/07/21 15:02) Beta Hydroxybutyrate (01/07/21 15:58) Lactic Acid Analyzer (01/07/21 15:58) Blood Culture (01/07/21 15:58) Ns Iv 1000 Ml (Sodium Chloride 0.9%) (01/07/21 16:00) Chest 1 View, Ap/Pa Only (01/07/21 16:11) Drug Screen Stat (Urine) (01/07/21 16:26) Salicylate (01/07/21 16:26) Alcohol (01/07/21 16:26) Ns Iv 1000 Ml (Sodium Chloride 0.9%) (01/07/21 16:45) Piperacillin Sodium/Tazobactam (Zosyn Vi (01/07/21 16:45) Fentanyl Inj (Sublimaze Injection) (01/07/21 17:15) Protime With Inr (01/07/21 17:09) Partial Thromboplastin Time (01/07/21 17:09) Ns Iv 1000 Ml (Sodium Chloride 0.9%) (01/07/21 17:15) Fibrinogen (01/07/21 17:20) Medications Given in ED Current Medications Medications Dose Ordered Sig/Walter Route Start Time Stop Time Status Last Admin Dose Admin Fentanyl Citrate 50 mcg ONCE ONCE IVP 01/07/21 17:15 01/07/21 17:16 DC 01/07/21 17:19 50 MCG Piperacillin Sod/ Tazobactam Sod 4.5 gm/Sodium Chloride 100 ml @ 200 mls/hr ONCE ONCE IV 01/07/21 16:45 01/07/21 17:14 DC 01/07/21 16:53 200 MLS/HR Sodium Chloride 1,000 ml @ ud STK-MED ONCE .ROUTE 01/07/21 17:15 01/07/21 17:18 DC 01/07/21 17:15 999 MLS/HR Vital Signs/I&O 01/07/21 14:59 Temp 36.1 Pulse 129 Resp 30 B/P (MAP) 102/75 (84) O2 Delivery Room Air Capillary Refill : Less Than 3 Seconds Blood Pressure Mean: 84 Diagnostic Imaging Diagonstic Imaging: Xray Plain Films/CT/US/NM/MRI: chest Comments NAME: MEGHAN CORONA [facility] REC#: [id number] PT STATUS: REG ER : 1980 PHYSICIAN: CONSTANCE URENA APRN ADMIT DATE: 01/07/21/ER Signed Date of Exam:01/07/21 CHEST 1 VIEW, AP/PA ONLY EXAMINATION: Chest 1 view. HISTORY: SOA. COMPARISON: 09/16/2017. FINDINGS: Stable enlargement of the cardiac silhouette. The lungs are clear without consolidation, pleural effusion or pneumothorax. There are multiple right rib fractures, a few of which appear to be chronic. A lateral right 3rd rib fracture has a more acute appearance. IMPRESSION: 1. No acute radiographic abnormality in the chest. 2. Right rib fractures, one of which along the lateral right 3rd rib has a more acute appearance. Recommend correlation with any recent history of trauma and correlation with physical exam. Dictated by: Dictated on workstation # [id number] Dict: 01/07/21 1627 Trans: 01/07/21 1635 [facility] [id number] Interpreted by: DESIREE CARDOZO DO Electronically signed by: DESIREE CARDOZO DO 01/07/21 1635 Departure Communication (Admissions) 1655-the mottled appearance of both lower extremities is noticeably improved at this point after only 500 mL fluid bolus. Blood pressure is adequate at 116/84 heart rate 122. She is receiving her second liter of IV fluids, Zosyn 4.5 g infusing. Given her 50 mcg of fentanyl for pain. SPecifically questioned about any excessive metformin ingestion which she denies. The right rib fractures are from 2018 when she fell. 1731-blood pressure is 122/85 heart rate 120 oxygen 98% room air. I did update eICU physician Dr. Lim as well. He will review her chart upon her arrival to ICU. In the meantime I will call for room. I suspect her source of infection is cellulitis of the pannus as I do not see any other clear source of infection. Impression Primary Impression: Severe sepsis Additional Impression: Compensated metabolic acidosis Disposition: ADMITTED INPATIENT Condition: Critical Admissions Decision to Admit Reason: Admit from ER (General) Decision to Admit/Date: Jan 07, 2021 Time/Decision to Admit Time: 16:57 Departure-Patient Inst. Referrals: SUBHASH RUVALCABA MD (PCP/Family) Primary Care Physician CONSTANCE URENA APRN Jan 07, 2021 16:15
[2021-01-07 16:17] LABS: ABG PCO2 19 MMHG (35-45)
[2021-01-07 16:18] LABS: ALLENS TEST YES-POS; INSPIRED O2 2; PATIENT TEMP 36.1; VENTILATOR NO
--- NOTE | 2021-01-07 16:34 | Diagnostic Imaging Report ---
EXAMINATION: Chest 1 view. HISTORY: SOA. COMPARISON: 09/16/2017. FINDINGS: Stable enlargement of the cardiac silhouette. The lungs are clear without consolidation, pleural effusion or pneumothorax. There are multiple right rib fractures, a few of which appear to be chronic. A lateral right 3rd rib fracture has a more acute appearance. IMPRESSION: 1. No acute radiographic abnormality in the chest. 2. Right rib fractures, one of which along the lateral right 3rd rib has a more acute appearance. Recommend correlation with any recent history of trauma and correlation with physical exam. Dictated by: Dictated on workstation # [id number]
[2021-01-07 16:39] LABS: CLARITY,URINE SL CLOUDY; COLOR,URINE YELLOW; GLUCOSE, URINE (UA) 1+ (NEGATIVE); KETONES,URINE TRACE (NEGATIVE); LEUKOCYTE ESTERASE ,URINE NEGATIVE (NEGATIVE); NITRITE,URINE NEGATIVE (NEGATIVE); PROTEIN,URINE 1+ (NEGATIVE)
[2021-01-07] MEDS ORDERED: PIPERACILLIN SODIUM/TAZOBACTAM 4.5 GM in NS (IVPB) 100 ML IV ONE (16:45)
[2021-01-07 16:47] LABS: BACTERIA,URINE TRACE /HPF; RBC,URINE RARE /HPF; WBC,URINE RARE /HPF
[2021-01-07 16:54] LABS: SALICYLATE < 5.0 MG/DL (5.0-20.0)
[2021-01-07] MEDS: NS IV 1000 ML 1,000 ML IV SCH ×2 (16:54→17:18)
[2021-01-07 16:59] LABS: AMPHETAMINE SCREEN, URINE POSITIVE (NEGATIVE); BARBITURATE SCREEN URINE NEGATIVE (NEGATIVE); BENZODIAZEPINES SCREEN URINE NEGATIVE (NEGATIVE); CANNABINOID SCREEN, URINE NEGATIVE (NEGATIVE); COCAINE SCREEN URINE NEGATIVE (NEGATIVE); METHADONE STAT NEGATIVE (NEGATIVE); METHAMPHETAMINE SCREEN URINE S NEGATIVE (NEGATIVE); OPIATE SCREEN URINE POSITIVE (NEGATIVE); OXYCODONE STAT NEGATIVE (NEGATIVE); PROPOXYPHENE STAT NEGATIVE (NEGATIVE); TRICYCLIC ANTIDEPRESSANTS SCRE NEGATIVE (NEGATIVE)
[2021-01-07] MEDS ORDERED: fentaNYL INJ 100 MCG/2 ML AMP IVP ONE (17:15)
[2021-01-07] MEDS ORDERED: NS IV 1000 ML 1,000 ML ONE (17:15)
[2021-01-07] MEDS ORDERED: ENOXAPARIN 100 MG/1 ML (LOVENOX) SYR SC ONE (17:45)
[2021-01-07 18:03] LABS: INR 1.3 (0.8-1.4); PROTHROMBIN TIME PATIENT 16.3 SEC (12.2-14.7)
[2021-01-07] MEDS ORDERED: LACTATED RINGERS 1,000 ML IV ONE (18:22)
--- NOTE | 2021-01-07 18:26 | Tele-ICU Consult ---
History of Present Illness History of Present Illness Date Seen by Provider: Jan 07, 2021 Time Seen by Provider: 18:20 Date of Admission Adm w severe sepsis felt due to pannus infection. Wcc 13.3 Lactate 7.6. Recd 3 L IVF in ER. Covid neg. alc and salicylate neg. BNP 400. BUN 39 creat 1.78 unchanged. NB Elevated D-Dimer 5.9 PMH: obesity, CKD DM PE: morbid obesity, undistressed. 84 NSR 137/70 98% P: IVF, Zosyn, vanco, empiric Lovenox. DW ER [employer]. Allergies and Home Medications Allergies Coded Allergies: No Known Drug Allergies (Unverified , 09/16/17) Home Medications Acetaminophen 325 Mg Tablet, 650 MG PO Q6H PRN for PAIN-MILD (1-4), (Reported) TAKES 2 (325MG) TABLETS Amlodipine Besylate 10 Mg Tablet, 10 MG PO DAILY, (Reported) Aspirin 81 Mg Tablet.dr, 81 MG PO DAILY, (Reported) Doxepin HCl 10 Mg Capsule, 10 MG PO HS, (Reported) Furosemide 20 Mg Tablet, 20 MG PO DAILY, (Reported) Hydrocodone/Acetaminophen 1 Each Tablet, 1 TAB PO Q8H PRN for PAIN-MODERATE (5- 7), (Reported) Metformin HCl 500 Mg Tablet, 500 MG PO BID, (Reported) Multivitamin 1 Each Tablet, 1 EACH PO DAILY, (Reported) Phentermine HCl 37.5 Mg Capsule, 37.5 MG PO DAILY PRN for APPETITE SUPPRESANT, (Reported) Past Medical/Social/Family Hx Immunizations Up To Date Second COVID19 Vaccination Fermin: 10/15/20 Current Status Primary Language: Kittitian Review of Systems Constitutional: see HPI, other Sepsis Event Evaluation Sepsis Stage: Sepsis Possible Source: Skin/Soft Tissue Height, Weight, BMI Height: 5'2.00" Weight: 280lbs. 0.0oz. 127.541244yb; 55.00 BMI Method:Stated Bedside Monitoring Bedside Ultrasound Performed: No Passive Leg Raise/Fluid Bolus: Fluid Responsive Exam Exam Patient acknowledged, consented, and participated in this virtual visit which was conducted using real time audio/video Vital Signs Date Time Temp Pulse Resp B/P (MAP) Pulse Ox O2 Delivery O2 Flow Rate FiO2 01/07/21 14:59 36.1 129 30 102/75 (84) Room Air Height & Weight Height: 5'2.00" Weight: 280lbs. 0.0oz. 127.710667ma; 55.00 BMI Method:Stated General Appearance: Anxious HEENT: Moist Mucous Membranes Neck: Normal Inspection Respiratory: Chest Non Tender, No Accessory Muscle Use, No Respiratory Distress Cardiovascular: Regular Rate, Rhythm, Normal Peripheral Pulses Capillary Refill: Less Than 3 Seconds Peripheral Pulses: 3+ Carotid (R), 3+ Carotid (L) Gastrointestinal: normal bowel sounds, non tender, soft Neurologic/Psychiatric: Alert Skin: Normal Color Lymphatic: No Adenopathy Results Lab Laboratory Tests 01/07/21 15:02 Assessment/Plan Assessment/Plan see free text note cpm, sepsis w infected pannus, IVF cultures abx Critical Care: Critically Ill Patient FRANCIE MIRANDA MD Jan 07, 2021 18:26
[2021-01-07] MEDS ORDERED: FUROSEMIDE 40 MG/4 ML INJ (LASIX) IVP ONE (19:00)
[2021-01-07] MEDS: LACTATED RINGERS 1,000 ML IV SCH (19:00)
[2021-01-07] MEDS ORDERED: FUROSEMIDE 40 MG/4 ML INJ (LASIX) ONE (19:15)
[2021-01-07] MEDS ORDERED: EPINEPHrine 1 MG INJECTION 4 MG in NS (IVPB) 248 ML IV SCH (20:30)
[2021-01-07] MEDS ORDERED: LACTATED RINGERS 1,000 ML IV SCH (20:30)
[2021-01-07] MEDS: NOREPINEPHRINE 8 MG/250 ML 250 ML IV SCH (20:31)
[2021-01-07] MEDS: VASOPRESSIN INJECTION 20 UNIT in NS (IVPB) 100 ML IV SCH (20:31)
[2021-01-07] MEDS: inSUlin ASPART (NovoLOG) 1 UNIT/0.01 ML (CHARGE PER UNIT) SC SCH (21:11)
[2021-01-07] MEDS: PIPERACILLIN/TAZOBACTAM (BULK) 4.5 GM in NS (IVPB) 100 ML IV SCH (21:32)
[2021-01-07] MEDS ORDERED: NS IV 500 ML 500 ML ONE (21:46)
[2021-01-07] MEDS ORDERED: VANCOMYCIN INJECTION 2,000 MG in NS IV 500 ML 500 ML IV ONE (22:00)
[2021-01-07] MEDS: HYDROcodone/APAP 5 MG/325 MG (LORTAB) TAB PO PRN (22:11)
--- NOTE | 2021-01-07 22:49 | History & Physical ---
History of Present Illness History of Present Illness Reason for visit/HPI 40 yo F admitted for shortness of breath and overall pain. She has a history significant for uncontrolled diabetes, diastolic congestive heart failure, hypertension, and chronic renal failure. She has been having issues with pain for over a year but worsening overall pain for the past month. UDS positive for opioids- I did prescribe her hydrocodone last week for foot and leg pain. She reported her foot pain did improve with pain medicine. She has been more sedentary for last couple weeks due to pain and was using a walker but eventually needed a wheelchair. UDS also positive for amphetamine- I have given her phentermine for weight loss as well. Pt reports he pannus is more red than usual. Lactic acid 7 on admission. Hgb down from 11 to 8 from 1 year ago. MCV low. Patient denies any blood loss in her bowels. Patient admitted for severe sepsis - she was started on broad spectrum antibiotics and fluid bolused. Given her sedentary lifestyle over last month risk for PE, DVT is high- she was given 1x dose of 200mg lovenox. Date of Admission Jan 07, 2021 at 17:22 Date Seen by a Provider: Jan 07, 2021 Time Seen by a Provider: 21:30 I consulted on this patient on 01/07/21 22:42 Attending Physician Maxi Adler MD Admitting Physician Madiha,Local Physician Consult Allergies and Home Medications Allergies Coded Allergies: No Known Drug Allergies (Unverified , 09/16/17) Home Medications Acetaminophen 325 Mg Tablet, 650 MG PO Q6H PRN for PAIN-MILD (1-4), (Reported) TAKES 2 (325MG) TABLETS Last Action: Held Amlodipine Besylate 10 Mg Tablet, 10 MG PO DAILY, (Reported) Last Action: Held Aspirin 81 Mg Tablet.dr, 81 MG PO DAILY, (Reported) Last Action: Held Doxepin HCl 10 Mg Capsule, 10 MG PO HS, (Reported) Last Action: Held Empaglifloz/Linaglip/Metformin 1 Each Tab.bp.24h, 1 EACH PO DAILY, (Reported) Last Action: Reviewed Furosemide 20 Mg Tablet, 20 MG PO DAILY, (Reported) Last Action: Held Hydrocodone/Acetaminophen 1 Each Tablet, 1 TAB PO Q8H PRN for PAIN-MODERATE (5- 7), (Reported) Last Action: Held Metformin HCl 500 Mg Tablet, 500 MG PO BID PRN for WHEN OUT OF TRIJARDY SAMPLES, (Reported) Last Action: Reviewed Multivitamin 1 Each Tablet, 1 EACH PO DAILY, (Reported) Last Action: Held Phentermine HCl 37.5 Mg Capsule, 37.5 MG PO DAILY PRN for APPETITE SUPPRESANT, (Reported) Last Action: Held Patient Home Medication List Home Medication List Reviewed: Yes Past Rqsalsf-Hefhgb-Urfguw Hx Patient Social History Marrital Status: Employed/Student: employed Smoking Status: Never a Smoker Recent Hopitalizations: No Have you traveled recently?: No Alcohol Use?: No Pt feels they are or have been: No Seasonal Allergies Seasonal Allergies: No Surgeries Yes Tonsillectomy Respiratory No Cardiovascular Yes Hypertension Neurological No Genitourinary No Gastrointestinal No Musculoskeletal No Endocrine History of Endocrine Disorders: No Endocrine Disorders: Diabetes, Non-Insulin dep HEENT History of HEENT Disorders: No Cancer No Psychosocial History of Psychiatric Problem: No Integumentary History of Skin or Integumenta: No Blood Transfusions History of Blood Disorders: No Family Medical History Significant Family History: Heart Disease, Cancer, CAD Over 55 Years Old, Hypertension Review of Systems Review of Systems General: No Chills, No Night Sweats HEENT: Head Aches; No Visual Changes Pulmonary: Dyspnea Cardiovascular: Chest Pain, Palpitations Gastrointestinal: No: Nausea, Vomiting, Abdominal Pain Genitourinary: No Dysuria Musculoskeletal: neck pain, shoulder pain, arm pain, back pain, leg pain, foot pain Neurological: Weakness; No: Confusion Physical Exam Vital Signs Vital Signs - First Documented 01/07/21 01/07/21 01/07/21 14:59 18:10 18:43 Temp 36.1 Pulse 129 Resp 30 B/P (MAP) 102/75 (84) Pulse Ox 100 O2 Delivery Room Air O2 Flow Rate 2.00 FiO2 98 Capillary Refill : Less Than 3 Seconds Height, Weight, BMI Height: 5'2.00" Weight: 280lbs. 0.0oz. 127.378402yr; 53.61 BMI Method:Stated General Appearance: Moderate Distress HEENT: PERRL/EOMI Neck: Non Tender, Supple Respiratory: Chest Non Tender, Lungs Clear, Normal Breath Sounds, No Accessory Muscle Use, No Respiratory Distress Cardiovascular: Tachycardia (tachypneic) Gastrointestinal: Non Tender, Soft, Other (warm to touch, erythema, blanches, edematous- pitting) Rectal: Deferred Back: Normal Inspection Extremity: Pedal Edema (up to knee- 3+ pitting), Swelling Neurologic/Psychiatric: Alert Skin: Warm/Dry, Mottled (legs) Assessment/Plan Assessment/Plan Admission Dx severe sepsis lactic acidosis metabolic acidosis Admission Status: Inpatient Order (span 2 midnights) Reason for Inpatient Admission: Patient admitted for severe sepsis - she was started on broad spectrum antibiotics and fluid bolused. Given her sedentary lifestyle over last month risk for PE, DVT is high- she was given 1x dose of 200mg lovenox. She also likely has acute on chronic diastolic CHF and if her chronic kidney disease worsens she will be grave danger. She is expected to stay over 2 midnights to stabilize her- with an initial lactic acid of 7 she is likely to decompensate quickly. Assessment and Plan admitted 01/07/21 Patient admitted for severe sepsis - she was started on broad spectrum antibiotics (vancomycin, zosyn) and fluid bolused. Given her sedentary lifestyle over last month risk for PE, DVT is high- she was given 1x dose of 200mg lovenox. V/Q scan ordered, lower ext U/S ordered. Echo ordered. -ordered 1x dose of bicarb IV to help with her metabolic acidosis - she is responding appropriately with increased respiratory rate. -slowed her IVF down to 100cc/hr. 1x dose of lasix 40mg IV x1 with good urine output. Prognosis: guarded- lactic acid has improved from 7 to 3 with IVF. Complex case with history of diastolic congestive heart failure and chronic kidney disease. Dispo: based on imaging tomorrow- will have to decide about dvt ppx - heparin gtts likely if kidney function worsens any. Problems: (1) Severe sepsis (2) Type 2 diabetes mellitus with hyperglycemia Assessment & Plan: SSI Hga1c 7.9 (3) Chronic kidney disease Qualifiers: Assessment & Plan: baseline Cr 1.3 to 1..5 (4) Lactic acidosis (5) Compensated metabolic acidosis (6) Diastolic CHF Qualifiers: Qualified Codes: I50.33 - Acute on chronic diastolic (congestive) heart failure (7) HTN (hypertension) Qualifiers: Qualified Codes: I10 - Essential (primary) hypertension (8) Generalized pain (9) Panniculitis MAXI ADLER MD Jan 07, 2021 22:49
[2021-01-07] MEDS ORDERED: SODIUM BICARB 8.4% 50 MEQ/50 ML VIAL IV ONE (23:00)
[2021-01-07] MEDS ORDERED: SODIUM BICARB 8.4% 50 MEQ/50 ML (ABBOTT) SYR ONE (23:03)
[2021-01-07] MEDS ORDERED: SODIUM BICARB 8.4% 50 MEQ/50 ML (ABBOTT) SYR IV ONE (23:15)
[2021-01-08] MEDS: VASOPRESSIN INJECTION 20 UNIT in NS (IVPB) 100 ML IV SCH ×2 (01:05→12:45)
[2021-01-08] MEDS: NOREPINEPHRINE 8 MG/250 ML 250 ML IV SCH ×4 (01:05→14:54)
[2021-01-08 02:00] LABS: BASOPHILS # (AUTO) 0.1 10^3/uL (0.0-0.1); BASOPHILS % (AUTO) 1 % (0-10); EOSINOPHILS % (AUTO) 0 % (0-10); HEMATOCRIT 25 % (35-52); HEMOGLOBIN 7.1 g/dL (11.5-16.0); LYMPHOCYTES # (AUTO) 0.8 10^3/uL (1.0-4.0); LYMPHOCYTES % (AUTO) 6 % (12-44); MEAN CORPUSCULAR HEMOGLOBIN 20 pg (25-34); MEAN CORPUSCULAR HGB CONC 28 g/dL (32-36); MEAN CORPUSCULAR VOLUME 71 fL (80-99); MEAN PLATELET VOLUME 10.1 fL (9.0-12.2); MONOCYTES # (AUTO) 0.3 10^3/uL (0.0-1.0); MONOCYTES % (AUTO) 2 % (0-12); NEUTROPHILS # (AUTO) 11.9 10^3/uL (1.8-7.8); NEUTROPHILS % (AUTO) 86 % (42-75); PLATELET COUNT 304 10^3/uL (130-400); WHITE BLOOD COUNT 13.9 10^3/uL (4.3-11.0)
[2021-01-08 02:06] LABS: POTASSIUM 3.9 MMOL/L (3.6-5.0)
[2021-01-08 02:07] LABS: CALCIUM 8.5 MG/DL (8.5-10.1)
[2021-01-08 02:12] LABS: CREATININE SERUM 1.46 MG/DL (0.60-1.30)
[2021-01-08] MEDS: POTASSIUM CL 10MEQ/50ML IVPB 50 ML IV SCH (03:38)
[2021-01-08] MEDS: KCL 20 MEQ TAB (K-DUR) PO SCH (03:39)
[2021-01-08] MEDS: MAGNESIUM 1 GM/100 ML IVPB 100 ML IV SCH (03:39)
[2021-01-08] MEDS: LACTATED RINGERS 1,000 ML IV SCH ×3 (05:25→20:50)
[2021-01-08] MEDS: PIPERACILLIN/TAZOBACTAM (BULK) 4.5 GM in NS (IVPB) 100 ML IV SCH ×3 (05:25→22:15)
[2021-01-08] MEDS: inSUlin ASPART (NovoLOG) 1 UNIT/0.01 ML (CHARGE PER UNIT) SC SCH ×4 (05:38→20:57)
[2021-01-08 07:22] LABS: BILIRUBIN,URINE 1+ (NEGATIVE)
[2021-01-08] MEDS: HYDROcodone/APAP 5 MG/325 MG (LORTAB) TAB PO PRN ×2 (09:03→13:01)
--- NOTE | 2021-01-08 09:37 | Diagnostic Imaging Report ---
PROCEDURE: US Venous Lower Ext Kaveh. TECHNIQUE: Multiple Real-time grayscale images were obtained over the lower extremities in various projections bilaterally. Additional duplex Doppler and color Doppler images were also obtained. INDICATION: Lower extremity swelling and pain, sepsis. COMPARISON: None. FINDINGS: The visualized deep and superficial venous system is patent. There is no DVT. No fluid collection or mass is seen. IMPRESSION: Negative lower extremity venous Doppler. Dictated by: Dictated on workstation # [id number]
[2021-01-08] MEDS: VANCOMYCIN INJECTION 1,000 MG in NS (IVPB) 250 ML IV SCH ×2 (11:14→22:15)
[2021-01-08] MEDS ORDERED: KETOROLAC 30 MG/ML VIAL IVP ONE (11:15)
--- NOTE | 2021-01-08 11:17 | Tele-ICU Progress Note ---
Subjective Date Seen by a Provider: Jan 08, 2021 Time Seen by a Provider: 11:17 Sepsis Event Evaluation Height, Weight, BMI Height: 5'2.00" Weight: 280lbs. 0.0oz. 127.006243gn; 53.61 BMI Method:Stated Focused Exam Lactate Level 01/07/21 23:50: Lactic Acid Level 3.38*H 01/08/21 01:40: Lactic Acid Level 2.95*H 01/08/21 04:15: Lactic Acid Level 2.00 Time of Focused Exam: 16:54 Exam Exam Patient acknowledged, consented, and participated in this virtual visit which was conducted using real time audio/video Vital Signs Date Time Temp Pulse Resp B/P (MAP) Pulse Ox O2 Delivery O2 Flow Rate FiO2 01/08/21 09:00 118 135/90 (105) 90 Nasal Cannula 2.00 01/08/21 08:28 37.0 01/08/21 08:08 96 Nasal Cannula 2.00 01/08/21 08:00 118 138/119 (125) 96 Nasal Cannula 2.00 01/08/21 07:00 118 01/08/21 07:00 117 38 120/86 (97) 93 Nasal Cannula 2.00 01/08/21 06:00 123 126/61 (82) 98 Nasal Cannula 2.00 01/08/21 05:31 36.3 01/08/21 05:00 115 132/83 (99) 85 Nasal Cannula 2.00 01/08/21 04:00 115 125/86 (99) 87 Nasal Cannula 2.00 01/08/21 04:00 98 Nasal Cannula 2.00 01/08/21 03:00 116 39 112/78 (89) 93 Nasal Cannula 2.00 01/08/21 02:00 126 132/85 (97) 95 Nasal Cannula 2.00 01/08/21 01:00 122 125/73 (94) 93 Nasal Cannula 2.00 01/08/21 01:00 122 01/08/21 00:16 35.9 01/08/21 00:00 123 117/76 (84) 94 Nasal Cannula 2.00 01/07/21 23:59 98 Nasal Cannula 2.00 01/07/21 23:00 129 127/77 (94) 93 Nasal Cannula 2.00 01/07/21 22:00 135 137/80 (99) 95 Nasal Cannula 2.00 01/07/21 21:00 129 129/80 (96) 93 Nasal Cannula 2.00 01/07/21 20:00 98 Nasal Cannula 2.00 01/07/21 20:00 125 123/94 (104) 95 Nasal Cannula 2.00 01/07/21 19:46 37.1 01/07/21 19:00 123 01/07/21 19:00 123 01/07/21 19:00 123 147/48 (81) 97 Nasal Cannula 2.00 01/07/21 18:43 Nasal Cannula 2.00 98 01/07/21 18:30 122 137/69 (91) 98 Nasal Cannula 2.00 01/07/21 18:25 36.7 Nasal Cannula 2.00 01/07/21 18:24 124 01/07/21 18:10 124 33 118/102 100 Nasal Cannula 2.00 01/07/21 14:59 36.1 129 30 102/75 (84) Room Air I & O 01/08/21 07:00 Intake Total 100 ml Output Total 1600 ml Balance -1500 ml Height & Weight Height: 5'2.00" Weight: 280lbs. 0.0oz. 127.780751uh; 53.61 BMI Method:Stated General Appearance: Moderate Distress HEENT: PERRL/EOMI Neck: Non Tender, Supple Respiratory: Chest Non Tender, Lungs Clear, Normal Breath Sounds, No Accessory Muscle Use, No Respiratory Distress Cardiovascular: Tachycardia (tachypneic) Capillary Refill: Less Than 3 Seconds Gastrointestinal: normal bowel sounds, non tender, soft Extremity: Pedal Edema (up to knee- 3+ pitting), Swelling Neurologic/Psychiatric: Alert Skin: Warm/Dry, Mottled (legs) Results Lab Laboratory Tests 01/07/21 15:02 01/08/21 01:40 Assessment/Plan Assessment/Plan (Tele-ICU Physician , Progress Note ) Available chart/ vitals / labs / Images reviewed Video assessment done using teleICU camera, rest of exam as per RN Discussed with RN - more somnolent and confused this am Events overnight : Afebrile hemodynamically stable, no pressors, I/O = Drips: As per RN exam : AA=1 . somnolent Consultants: Hospital course: (01/07) 40/F- Weakness, hypoxia, inflammation on abdo. pannus, 2 L o2, lasix 40 mg ivp for incr. RR A/P Cellulitis , sepsis - received IVF , lactate normalized - ABX to cont -broad spectrum antibiotics (vancomycin, zosyn 01/07 acute on chronic diastolic CHF -ECHO 01/08 - in progress Somnolence - an risk for HAILE /OHV - will check ABG , follow neuro assessment - patient is moaning with pain - will hold opioids until abg done - will give 1 dose BSAIS Hypoxia , reps infuffiiency , on 2 L o2 - in ER given PE, DVT is high risk she was given 1x dose of 200mg lovenox. -V/Q scan ordered, -lower ext U/S - negative for DVT CKD - improving , monitor UDS positive for opioids and amphetamine -on phentermine for weight loss -on hydrocodone for foot and leg pain rib fx. seen on cxr. - no c/o or history Lines : peripf Hernandez: 01/07 OG: Nutrition: po Analgesia: na Anxiety/ delirium na VTE Prophylaxis: receicved full dose lovenox - will follow VQ - if negative will need proph dose Stress Ulcer Prophylaxis: na Glycemic Control: + Plans in collaboration with bedside consultants and IM MDs. Discussed with RN to reach out if any questions or concerns A total of 27 minutes of critical care time was devoted to this patient today, required to treat and/or prevent further deterioration of critical care condition ( as above ) . NOÉ CAO MD Jan 08, 2021 11:17
[2021-01-08 11:21] LABS: ABG BASE EXCESS -5.1 MMOL/L (-2.5-2.5); ABG OXYGEN SATURATION 97 % (94-100); ABG PCO2 31 MMHG (35-45); ABG PH 7.41 (7.37-7.43); ABG PO2 146 MMHG (79-93); ABG TCO2 19.7 MMOL/L (21.0-31.0)
[2021-01-08 11:22] LABS: PATIENT TEMP 37.1; VENTILATOR NO
[2021-01-08] MEDS ORDERED: LORazepam INJ 2 MG/ML (ATIVAN) VIAL IVP STA (13:37)
[2021-01-08] MEDS ORDERED: LORazepam INJ 2 MG/ML (ATIVAN) VIAL ONE (13:41)
[2021-01-08] MEDS ORDERED: PHEN-483 PO (14:29)
[2021-01-08] MEDS ORDERED: ASPI-1238 PO (14:29)
[2021-01-08] MEDS ORDERED: ACHD5005 PO (14:29)
[2021-01-08] MEDS ORDERED: FURO20TA4 PO (14:29)
[2021-01-08] MEDS ORDERED: METF500S5 PO (14:29)
[2021-01-08] MEDS ORDERED: ACET325T38 PO (14:29)
[2021-01-08] MEDS ORDERED: METF-397 PO (14:29)
[2021-01-08] MEDS ORDERED: MULT-1136 PO (14:29)
[2021-01-08] MEDS ORDERED: DOXE10CA29 PO (14:29)
[2021-01-08 15:06] VITALS: BP 108/76
--- NOTE | 2021-01-08 20:44 | Progress Note ---
Subjective Subjective Date Seen by Provider: Jan 08, 2021 Time Seen by Provider: 12:30 Patient yelling out in pain- but when asked where her pain is she says " i think it is in my knee" DVT not seen on LE doppler. V/Q not reported. Awaiting echo report. is present today. Pt says she would like to be DNR- if her heart stops let her go. says she has never talked this way before and wonders if it is pain or infection talking. She did not know what month it was but identified who I was. Review of Systems General: No Chills, No Night Sweats HEENT: Head Aches; No Visual Changes Pulmonary: Dyspnea Cardiovascular: Palpitations; No: Chest Pain Gastrointestinal: No: Nausea, Vomiting, Abdominal Pain Genitourinary: No Dysuria Musculoskeletal: neck pain, shoulder pain, arm pain, back pain, leg pain, foot pain Neurological: Weakness; No: Confusion Objective Exam Vital Signs Vital Signs Date Time Temp Pulse Resp B/P (MAP) Pulse Ox O2 Delivery O2 Flow Rate FiO2 01/08/21 15:55 36.4 108 36 171/63 (99) 95 Nasal Cannula 2.00 01/08/21 15:06 37.1 120 31 108/76 91 Nasal Cannula 2.00 01/08/21 13:24 37.1 120 31 108/76 (87) 91 Nasal Cannula 2.00 1.00 01/08/21 13:00 120 01/08/21 12:05 Nasal Cannula 1.00 01/08/21 12:00 96 Nasal Cannula 1.00 01/08/21 12:00 110 31 108/76 (87) 91 Nasal Cannula 2.00 01/08/21 11:30 37.1 01/08/21 10:45 113 31 124/97 (106) 94 Nasal Cannula 2.00 01/08/21 10:00 116 134/83 (100) 93 Nasal Cannula 2.00 01/08/21 09:00 118 135/90 (105) 90 Nasal Cannula 2.00 01/08/21 08:28 37.0 01/08/21 08:08 96 Nasal Cannula 2.00 01/08/21 08:00 118 138/119 (125) 96 Nasal Cannula 2.00 01/08/21 07:00 118 01/08/21 07:00 117 38 120/86 (97) 93 Nasal Cannula 2.00 01/08/21 06:00 123 126/61 (82) 98 Nasal Cannula 2.00 01/08/21 05:31 36.3 01/08/21 05:00 115 132/83 (99) 85 Nasal Cannula 2.00 01/08/21 04:00 115 125/86 (99) 87 Nasal Cannula 2.00 01/08/21 04:00 98 Nasal Cannula 2.00 01/08/21 03:00 116 39 112/78 (89) 93 Nasal Cannula 2.00 01/08/21 02:00 126 132/85 (97) 95 Nasal Cannula 2.00 01/08/21 01:00 122 125/73 (94) 93 Nasal Cannula 2.00 01/08/21 01:00 122 01/08/21 00:16 35.9 01/08/21 00:00 123 117/76 (84) 94 Nasal Cannula 2.00 01/07/21 23:59 98 Nasal Cannula 2.00 01/07/21 23:00 129 127/77 (94) 93 Nasal Cannula 2.00 01/07/21 22:00 135 137/80 (99) 95 Nasal Cannula 2.00 01/07/21 21:00 129 129/80 (96) 93 Nasal Cannula 2.00 I & O 01/08/21 06:59 Intake Total 100 ml Output Total 1600 ml Balance -1500 ml General Appearance: Anxious, Other (yelling out) Eyes: Bilateral Eye Normal Inspection, Bilateral Eye PERRL HEENT: Moist Mucous Membranes Neck: Normal Inspection Respiratory: Chest Non Tender, No Accessory Muscle Use, No Respiratory Distress Cardiovascular: Regular Rate, Rhythm (tachy, tachypnea), Normal Peripheral Pulses Gastrointestinal: Non Tender, Soft, Other (warm to touch, erythema, blanches, edematous- pitting) Rectal: Deferred Back: Normal Inspection Extremity: Pedal Edema (up to knee- 3+ pitting), Swelling Neurologic/Psychiatric: Alert Skin: Normal Color Lymphatic: No Adenopathy Results Lab Laboratory Tests 01/07/21 21:03: Glucometer 195H 01/07/21 21:40: Lactic Acid Level 3.98*H 01/07/21 23:50: Lactic Acid Level 3.38*H 01/08/21 01:40: Lactic Acid Level 2.95*H, White Blood Count 13.9H, Red Blood Count 3.53L, Hemoglobin 7.1L, Hematocrit 25L, Mean Corpuscular Volume 71L, Mean Corpuscular Hemoglobin 20L, Mean Corpuscular Hemoglobin Concent 28L, Red Cell Distribution Width 18.7H, Platelet Count 304, Mean Platelet Volume 10.1, Immature Granulocyte % (Auto) 6, Neutrophils (%) (Auto) 86H, Lymphocytes (%) (Auto) 6L, Monocytes (%) (Auto) 2, Eosinophils (%) (Auto) 0, Basophils (%) (Auto) 1, Neutrophils # (Auto) 11.9H, Lymphocytes # (Auto) 0.8L, Monocytes # (Auto) 0.3, Eosinophils # (Auto) 0.0, Basophils # (Auto) 0.1, Immature Granulocyte # (Auto) 0.8H, Sodium Level 142, Potassium Level 3.9, Chloride Level 110H, Carbon Dioxide Level 16L, Anion Gap 16H, Blood Urea Nitrogen 37H, Creatinine 1.46H, Estimat Glomerular Filtration Rate 40, BUN/Creatinine Ratio 25, Glucose Level 190H, Calcium Level 8.5 01/08/21 04:15: Lactic Acid Level 2.00 01/08/21 11:17: Blood Gas Puncture Site NA, Blood Gas Patient Temperature 37.1, Arterial Blood pH 7.41, Arterial Blood Partial Pressure CO2 31L, Arterial Blood Partial Pressure O2 146H, Arterial Blood HCO3 19L, Arterial Blood Total CO2 19.7L, Arterial Blood Oxygen Saturation 97, Arterial Blood Base Excess -5.1L, Denilson Test NA, Blood Gas Ventilator Setting NO, Blood Gas Inspired Oxygen NA 01/08/21 11:23: Glucometer 188H 01/08/21 16:05: Glucometer 149H Microbiology 01/07/21 Blood Culture - Preliminary, Resulted Group B Streptococci Assessment/Plan Assessment/Plan Admission Dx severe sepsis lactic acidosis metabolic acidosis Assessment and Plan admitted 01/07/21 Patient admitted for severe sepsis - she was started on broad spectrum antibioti cs (vancomycin, zosyn) and fluid bolused. Given her sedentary lifestyle over last month risk for PE, DVT is high- she was given 1x dose of 200mg lovenox. V/Q scan ordered, lower ext U/S ordered. Echo ordered. -ordered 1x dose of bicarb IV to help with her metabolic acidosis - she is responding appropriately with increased respiratory rate. -slowed her IVF down to 100cc/hr. 1x dose of lasix 40mg IV x1 with good urine output. 01/08/21- improvement- lactic acid now 2. Cr improving. Pt is yelling out in pain but it does not appear to be pain - more of a delirium attributed to her sepsis and likely underlying mood disorder. -no DVT seen in legs- starting lovenox dvt ppx. awaiting V/Q scan. Echo 55-65% LVEF. -may be able to d/c vancomycin tomorrow if cultures remain GBS. Prognosis: guarded- Problems: (1) Severe sepsis (2) Type 2 diabetes mellitus with hyperglycemia Assessment & Plan: SSI (3) Chronic kidney disease Qualifiers: Assessment & Plan: baseline Cr 1.3 to 1..5 (4) Lactic acidosis (5) Compensated metabolic acidosis (6) Diastolic CHF Qualifiers: Qualified Codes: I50.33 - Acute on chronic diastolic (congestive) heart failure (7) HTN (hypertension) Qualifiers: Qualified Codes: I10 - Essential (primary) hypertension (8) Generalized pain (9) Panniculitis (10) Bacteremia due to group B Streptococcus Admission Dx severe sepsis lactic acidosis metabolic acidosis Clinical Quality Measures Admission Status Admission Dx severe sepsis lactic acidosis metabolic acidosis CHAZ ADLER MD Jan 08, 2021 20:44
[2021-01-08 21:09] LABS: ABG BASE EXCESS -4.5 MMOL/L (-2.5-2.5); ABG OXYGEN SATURATION 98 % (94-100); ABG PCO2 32 MMHG (35-45); ABG PO2 122 MMHG (79-93); ABG TCO2 20.4 MMOL/L (21.0-31.0)
[2021-01-08 21:10] LABS: ALLENS TEST YES-POS; INSPIRED O2 2L; PATIENT TEMP 37.5; VENTILATOR NO
[2021-01-08 21:42] LABS: BASOPHILS # (AUTO) 0.1 10^3/uL (0.0-0.1); BASOPHILS % (AUTO) 1 % (0-10); EOSINOPHILS % (AUTO) 0 % (0-10); HEMATOCRIT 25 % (35-52); LYMPHOCYTES # (AUTO) 0.8 10^3/uL (1.0-4.0); LYMPHOCYTES % (AUTO) 6 % (12-44); MEAN CORPUSCULAR HEMOGLOBIN 20 pg (25-34); MEAN CORPUSCULAR HGB CONC 29 g/dL (32-36); MEAN CORPUSCULAR VOLUME 71 fL (80-99); MEAN PLATELET VOLUME 10.3 fL (9.0-12.2); MONOCYTES # (AUTO) 0.3 10^3/uL (0.0-1.0); MONOCYTES % (AUTO) 2 % (0-12); NEUTROPHILS # (AUTO) 11.6 10^3/uL (1.8-7.8); NEUTROPHILS % (AUTO) 84 % (42-75); PLATELET COUNT 293 10^3/uL (130-400); WHITE BLOOD COUNT 13.8 10^3/uL (4.3-11.0)
[2021-01-08 21:50] LABS: ALBUMIN 2.2 GM/DL (3.2-4.5)
[2021-01-08 21:52] LABS: CALCIUM 8.5 MG/DL (8.5-10.1)
[2021-01-08 21:53] LABS: TOTAL PROTEIN 5.7 GM/DL (6.4-8.2)
--- NOTE | 2021-01-08 21:53 | Diagnostic Imaging Report ---
INDICATION: Shortness of breath EXAMINATION: Chest from 01/08/2021 COMPARISON: 01/07/2021 FINDINGS: There is marked cardiomegaly. Likely pulmonary vascular congestion with findings of edema in the lungs. No infiltrates or effusions. No pneumothorax. Right lateral rib fractures appear chronic. IMPRESSION: 1. Suspected pulmonary edema with marked cardiomegaly. Dictated by: Dictated on workstation # [id number]
[2021-01-08 21:55] LABS: BILIRUBIN,TOTAL 0.3 MG/DL (0.1-1.0)
[2021-01-08 21:57] LABS: CREATININE SERUM 1.62 MG/DL (0.60-1.30)
[2021-01-08] MEDS ORDERED: ENOXAPARIN 60 MG/0.6 ML (LOVENOX) SYR SC SCH (22:00)
[2021-01-08] MEDS: ENOXAPARIN 60 MG/0.6 ML (LOVENOX) SYR SC SCH (22:17)
[2021-01-08 22:22] VITALS: BP 112/84
[2021-01-08] MEDS ORDERED: FUROSEMIDE 40 MG/4 ML INJ (LASIX) IVP ONE (22:45)
[2021-01-09 04:20] LABS: BASOPHILS # (AUTO) 0.1 10^3/uL (0.0-0.1); BASOPHILS % (AUTO) 0 % (0-10); EOSINOPHILS % (AUTO) 0 % (0-10); HEMATOCRIT 24 % (35-52); LYMPHOCYTES # (AUTO) 0.9 10^3/uL (1.0-4.0); LYMPHOCYTES % (AUTO) 7 % (12-44); MEAN CORPUSCULAR HGB CONC 29 g/dL (32-36); MEAN CORPUSCULAR VOLUME 71 fL (80-99); MEAN PLATELET VOLUME 10.4 fL (9.0-12.2); MONOCYTES # (AUTO) 0.4 10^3/uL (0.0-1.0); MONOCYTES % (AUTO) 3 % (0-12); NEUTROPHILS # (AUTO) 11.3 10^3/uL (1.8-7.8); NEUTROPHILS % (AUTO) 82 % (42-75); PLATELET COUNT 285 10^3/uL (130-400); WHITE BLOOD COUNT 13.8 10^3/uL (4.3-11.0)
[2021-01-09 04:22] LABS: MEAN CORPUSCULAR HEMOGLOBIN 21 pg (25-34)
[2021-01-09 04:38] LABS: POTASSIUM 3.8 MMOL/L (3.6-5.0)
[2021-01-09 04:40] LABS: CALCIUM 8.3 MG/DL (8.5-10.1)
[2021-01-09 04:44] LABS: CREATININE SERUM 1.83 MG/DL (0.60-1.30); PHOSPHORUS 4.2 MG/DL (2.3-4.7)
[2021-01-09 04:46] LABS: MAGNESIUM 2.3 MG/DL (1.6-2.4)
[2021-01-09 04:50] LABS: ABG BASE EXCESS -5.5 MMOL/L (-2.5-2.5); ABG OXYGEN SATURATION 99 % (94-100); ABG PCO2 28 MMHG (35-45); ABG PH 7.42 (7.37-7.43); ABG PO2 125 MMHG (79-93); ABG TCO2 19.3 MMOL/L (21.0-31.0)
[2021-01-09 04:51] LABS: ALLENS TEST YES-POS; INSPIRED O2 30%; PATIENT TEMP 35.9; VENTILATOR NO
[2021-01-09] MEDS: POTASSIUM CL 10MEQ/50ML IVPB 50 ML IV SCH (04:57)
[2021-01-09] MEDS: MAGNESIUM 1 GM/100 ML IVPB 100 ML IV SCH (04:57)
[2021-01-09] MEDS: KCL 20 MEQ TAB (K-DUR) PO SCH (04:57)
[2021-01-09] MEDS: PIPERACILLIN/TAZOBACTAM (BULK) 4.5 GM in NS (IVPB) 100 ML IV SCH ×3 (05:44→23:27)
[2021-01-09] MEDS: inSUlin ASPART (NovoLOG) 1 UNIT/0.01 ML (CHARGE PER UNIT) SC SCH ×4 (06:05→20:14)
[2021-01-09 06:27] VITALS: BP 110/77
--- NOTE | 2021-01-09 07:14 | Progress Note ---
Subjective Subjective Date Seen by Provider: Jan 09, 2021 Time Seen by Provider: 07:30 Transferred back to ICU for worsening respiratory status. Placed on BiPAP. Patient tearful when we discuss code status because she does not want to suffer. Denies being in much pain currently. Review of Systems General: No Chills, No Night Sweats HEENT: Head Aches; No Visual Changes Pulmonary: Dyspnea Cardiovascular: Chest Pain, Palpitations Gastrointestinal: No: Nausea, Vomiting, Abdominal Pain Genitourinary: No Dysuria Musculoskeletal: neck pain, shoulder pain, arm pain, back pain, leg pain, foot pain Neurological: Weakness; No: Confusion Objective Exam Vital Signs Vital Signs Date Time Temp Pulse Resp B/P (MAP) Pulse Ox O2 Delivery O2 Flow Rate FiO2 01/10/21 06:35 102 16 94 Nasal Cannula 2.00 01/10/21 06:00 102 34 119/73 (88) 97 NIV Bilevel 21.00 01/10/21 05:00 98 28 119/76 (90) 98 NIV Bilevel 21.00 01/10/21 04:03 36.4 01/10/21 04:00 101 28 120/79 (93) 97 NIV Bilevel 21.00 01/10/21 04:00 NIV Bilevel 21 01/10/21 03:00 92 111/73 (86) 97 NIV Bilevel 21.00 01/10/21 02:00 96 39 114/74 (87) 98 NIV Bilevel 21.00 01/10/21 01:25 97 26 97 21.00 01/10/21 01:00 98 116/70 (85) 96 NIV Bilevel 21.00 01/10/21 01:00 98 01/10/21 00:00 NIV Bilevel 21 01/10/21 00:00 98 26 117/74 (88) 95 NIV Bilevel 21.00 01/09/21 23:34 36.3 01/09/21 23:00 97 21 126/76 (91) 97 NIV Bilevel 21.00 01/09/21 22:00 124 32 119/72 (83) 95 NIV Bilevel 21.00 01/09/21 21:00 106 121/76 (86) 96 NIV Bilevel 21.00 01/09/21 20:00 99 Nasal Cannula 2.00 01/09/21 20:00 112 29 126/91 (101) 97 Nasal Cannula 2.00 01/09/21 19:27 118 38 93 01/09/21 19:00 114 01/09/21 19:00 114 37 146/96 (113) 98 Nasal Cannula 2.00 01/09/21 18:28 99 Nasal Cannula 2.00 01/09/21 18:00 114 23 132/101 (111) 98 Nasal Cannula 2.00 01/09/21 17:50 36.0 113 33 140/99 Nasal Cannula 2.00 01/09/21 17:00 36.4 01/09/21 17:00 108 35 144/96 (112) 98 Nasal Cannula 2.00 01/09/21 16:00 98 Nasal Cannula 2.00 01/09/21 16:00 112 31 132/110 (117) 96 Nasal Cannula 2.00 01/09/21 15:00 113 49 147/100 (116) 98 Nasal Cannula 2.00 01/09/21 14:25 37.6 112 39 133/91 95 Nasal Cannula 2.00 01/09/21 14:04 37.3 113 48 131/86 95 Nasal Cannula 2.00 01/09/21 14:02 95 Nasal Cannula 2.00 01/09/21 14:00 112 30 133/91 (105) 94 Nasal Cannula 2.00 01/09/21 13:00 108 35 130/82 (98) 96 Nasal Cannula 2.00 01/09/21 13:00 107 01/09/21 12:20 99 Nasal Cannula 2.00 01/09/21 12:00 110 40 145/101 (116) 99 Nasal Cannula 2.00 01/09/21 11:50 97 Nasal Cannula 2.00 01/09/21 11:00 108 28 115/81 (92) 99 NIV Bilevel 25.00 01/09/21 10:03 107 26 100 25.00 01/09/21 10:00 111 29 115/81 (92) 100 NIV Bilevel 25.00 01/09/21 09:00 107 28 122/79 (93) 100 NIV Bilevel 25.00 01/09/21 08:20 100 NIV Bilevel 30 01/09/21 08:00 112 29 117/84 (95) 100 NIV Bilevel 25.00 01/09/21 08:00 36.1 I & O 01/10/21 07:00 Intake Total 1070 ml Output Total 835 ml Balance 235 ml General Appearance: Moderate Distress Eyes: Bilateral Eye Normal Inspection, Bilateral Eye PERRL HEENT: PERRL/EOMI Neck: Non Tender, Supple Respiratory: Chest Non Tender, Lungs Clear, Normal Breath Sounds, No Accessory Muscle Use, No Respiratory Distress Cardiovascular: Tachycardia (tachypneic) Gastrointestinal: Non Tender, Soft, Other (pannus- warm to touch, erythema, blanches, edematous- pitting) Rectal: Deferred Back: Normal Inspection Extremity: Pedal Edema (up to knee- 3+ pitting), Swelling Neurologic/Psychiatric: Alert Skin: Warm/Dry, Mottled (legs) Lymphatic: No Adenopathy Results Lab Laboratory Tests 01/08/21 11:17: Blood Gas Puncture Site NA, Blood Gas Patient Temperature 37.1, Arterial Blood pH 7.41, Arterial Blood Partial Pressure CO2 31L, Arterial Blood Partial Pressure O2 146H, Arterial Blood HCO3 19L, Arterial Blood Total CO2 19.7L, Arterial Blood Oxygen Saturation 97, Arterial Blood Base Excess -5.1L, Denilson Test NA, Blood Gas Ventilator Setting NO, Blood Gas Inspired Oxygen NA 01/08/21 11:23: Glucometer 188H 01/08/21 16:05: Glucometer 149H 01/08/21 20:38: Glucometer 139H 01/08/21 21:03: Blood Gas Puncture Site LEFT RADIAL, Blood Gas Patient Temperature 37.5, Arterial Blood pH 7.40, Arterial Blood Partial Pressure CO2 32L, Arterial Blood Partial Pressure O2 122H, Arterial Blood HCO3 19L, Arterial Blood Total CO2 20.4L, Arterial Blood Oxygen Saturation 98, Arterial Blood Base Excess -4.5L, Denilson Test YES-POS, Blood Gas Ventilator Setting NO, Blood Gas Inspired Oxygen 2L 01/08/21 21:34: White Blood Count 13.8H, Red Blood Count 3.46L, Hemoglobin 7.0L, Hematocrit 25L, Mean Corpuscular Volume 71L, Mean Corpuscular Hemoglobin 20L, Mean Corpuscular Hemoglobin Concent 29L, Red Cell Distribution Width 18.7H, Platelet Count 293, Mean Platelet Volume 10.3, Immature Granulocyte % (Auto) 7, Neutrophils (%) (Auto) 84H, Lymphocytes (%) (Auto) 6L, Monocytes (%) (Auto) 2, Eosinophils (%) (Auto) 0, Basophils (%) (Auto) 1, Neutrophils # (Auto) 11.6H, Lymphocytes # (Auto) 0.8L, Monocytes # (Auto) 0.3, Eosinophils # (Auto) 0.0, Basophils # (Auto) 0.1, Immature Granulocyte # (Auto) 1.0H, Sodium Level 142, Potassium Level 4.0, Chloride Level 111H, Carbon Dioxide Level 18L, Anion Gap 13, Blood Urea Nitrogen 43H, Creatinine 1.62H, Estimat Glomerular Filtration Rate 36, BUN/Creatinine Ratio 27, Glucose Level 149H, Lactic Acid Level 1.39, Calcium Level 8.5, Corrected Calcium 9.9, Total Bilirubin 0.3, Aspartate Amino Transf (AST/SGOT) 19, Alanine Aminotransferase (ALT/SGPT) 22, Alkaline Phosphatase 129, B-Type Natriuretic Peptide 408.2H, Total Protein 5.7L, Albumin 2.2L 01/09/21 03:35: White Blood Count 13.8H, Red Blood Count 3.33L, Hemoglobin 7.0L, Hematocrit 24L, Mean Corpuscular Volume 71L, Mean Corpuscular Hemoglobin 21L, Mean Corpuscular Hemoglobin Concent 29L, Red Cell Distribution Width 18.7H, Platelet Count 285, Mean Platelet Volume 10.4, Immature Granulocyte % (Auto) 8, Neutrophils (%) (Auto) 82H, Lymphocytes (%) (Auto) 7L, Monocytes (%) (Auto) 3, Eosinophils (%) (Auto) 0, Basophils (%) (Auto) 0, Neutrophils # (Auto) 11.3H, Lymphocytes # (Auto) 0.9L, Monocytes # (Auto) 0.4, Eosinophils # (Auto) 0.0, Basophils # (Auto) 0.1, Immature Granulocyte # (Auto) 1.2H, Sodium Level 142, Potassium Level 3.8, Chloride Level 112H, Carbon Dioxide Level 16L, Anion Gap 14, Blood Urea Nitrogen 47H, Creatinine 1.83H, Estimat Glomerular Filtration Rate 31, BUN/Creatinine Ratio 26, Glucose Level 151H, Calcium Level 8.3L, Phosphorus Level 4.2, Magnesium Level 2.3 01/09/21 04:45: Blood Gas Puncture Site LEFT RADIAL, Blood Gas Patient Temperature 35.9, Arterial Blood pH 7.42, Arterial Blood Partial Pressure CO2 28L, Arterial Blood Partial Pressure O2 125H, Arterial Blood HCO3 18L, Arterial Blood Total CO2 19.3L, Arterial Blood Oxygen Saturation 99, Arterial Blood Base Excess -5.5L, Denilson Test YES-POS, Blood Gas Ventilator Setting NO, Blood Gas Inspired Oxygen 30% Microbiology 01/07/21 Blood Culture - Preliminary, Resulted Group B Streptococci Assessment/Plan Assessment/Plan Admission Dx severe sepsis lactic acidosis metabolic acidosis Assessment and Plan admitted 01/07/21 Patient admitted for severe sepsis - she was started on broad spectrum antibiotics (vancomycin, zosyn) and fluid bolused. Given her sedentary lifestyle over last month risk for PE, DVT is high- she was given 1x dose of 200mg lovenox. V/Q scan ordered, lower ext U/S ordered. Echo ordered. -ordered 1x dose of bicarb IV to help with her metabolic acidosis - she is responding appropriately with increased respiratory rate. -slowed her IVF down to 100cc/hr. 1x dose of lasix 40mg IV x1 with good urine output. 01/08/21- improvement- lactic acid now 2. Cr improving. Pt is yelling out in pain but it does not appear to be pain - more of a delirium attributed to her sepsis and likely underlying mood disorder. -no DVT seen in legs- starting lovenox dvt ppx. awaiting V/Q scan. Echo 55-65% LVEF. -may be able to d/c vancomycin tomorrow if cultures remain GBS. 01/09/21- d/c vancomycin. Creatinine went up. awaiting final culture results. BNP still elevated- will start [id number] iv daily. Monitor Cr. transfused 1 unit pRBC. V/Q scan negative. Prognosis: guarded- Problems: (1) Severe sepsis (2) Type 2 diabetes mellitus with hyperglycemia Assessment & Plan: SSI Hga1c 7.9 (3) Chronic kidney disease Qualifiers: Assessment & Plan: baseline Cr 1.3 to 1..5 (4) Lactic acidosis (5) Compensated metabolic acidosis (6) Diastolic CHF Qualifiers: Qualified Codes: I50.33 - Acute on chronic diastolic (congestive) heart failure (7) HTN (hypertension) Qualifiers: Qualified Codes: I10 - Essential (primary) hypertension (8) Generalized pain (9) Panniculitis Admission Dx severe sepsis lactic acidosis metabolic acidosis Clinical Quality Measures Admission Status Admission Dx severe sepsis lactic acidosis metabolic acidosis CHAZ ADLER MD Jan 09, 2021 07:14
[2021-01-09] MEDS: ENOXAPARIN 60 MG/0.6 ML (LOVENOX) SYR SC SCH ×2 (08:05→20:14)
[2021-01-09] MEDS: FUROSEMIDE 40 MG/4 ML INJ (LASIX) IVP SCH (08:05)
[2021-01-09] MEDS ORDERED: TROUGH ORDER-PHARMACY XX NR (09:00)
[2021-01-09] MEDS ORDERED: EMPA1TAB32 PO (09:19)
[2021-01-09 10:03] VITALS: BP 115/81
[2021-01-09] MEDS: LACTATED RINGERS 1,000 ML IV SCH ×2 (11:07→20:15)
[2021-01-09] MEDS ORDERED: FUROSEMIDE 40 MG/4 ML INJ (LASIX) IVP ONE (11:45)
[2021-01-09] MEDS ORDERED: NS IV 500 ML 500 ML IV SCH ×2 (11:45)
--- NOTE | 2021-01-09 11:48 | Tele-ICU Progress Note ---
Subjective Date Seen by a Provider: Jan 09, 2021 Time Seen by a Provider: 11:48 Sepsis Event Evaluation Height, Weight, BMI Height: 5'2.00" Weight: 280lbs. 0.0oz. 127.946400kb; 53.61 BMI Method:Stated Focused Exam Lactate Level 01/08/21 01:40: Lactic Acid Level 2.95*H 01/08/21 04:15: Lactic Acid Level 2.00 01/08/21 21:34: Lactic Acid Level 1.39 Time of Focused Exam: 16:54 Exam Exam Patient acknowledged, consented, and participated in this virtual visit which was conducted using real time audio/video Vital Signs Date Time Temp Pulse Resp B/P (MAP) Pulse Ox O2 Delivery O2 Flow Rate FiO2 01/09/21 10:03 107 26 100 25.00 01/09/21 08:20 100 NIV Bilevel 30 01/09/21 08:00 36.1 01/09/21 07:00 111 01/09/21 06:30 110 32 100 NIV Bilevel 25.00 01/09/21 06:27 110 27 100 30.00 01/09/21 06:00 107 23 110/77 (88) 100 NIV Bilevel 30.00 01/09/21 05:00 105 26 109/76 (85) 99 NIV Bilevel 30.00 01/09/21 04:00 100 NIV Bilevel 30 01/09/21 04:00 111 25 116/78 (88) 100 NIV Bilevel 30.00 01/09/21 04:00 35.9 01/09/21 03:00 111 19 111/75 (85) 99 NIV Bilevel 30.00 01/09/21 02:00 107 28 110/80 (87) 100 NIV Bilevel 30.00 01/09/21 02:00 NIV Bilevel 30.00 01/09/21 01:37 109 25 99 30.00 01/09/21 01:00 113 15 119/88 (98) 99 NIV Bilevel 35.00 01/09/21 01:00 113 01/09/21 00:00 96 NIV Bilevel 2.00 35 01/09/21 00:00 111 27 118/80 (93) 100 NIV Bilevel 35.00 01/08/21 23:00 114 17 115/82 (93) 100 NIV Bilevel 35.00 01/08/21 22:22 36.3 117 40 95 01/08/21 22:00 117 29 118/80 (93) 100 NIV Bilevel 35.00 01/08/21 21:37 117 01/08/21 21:30 36.3 121 40 117/88 (98) 100 NIV Bilevel 35.00 01/08/21 21:03 115 28 99 35.00 01/08/21 20:30 36.4 114 38 77/38 (51) 95 Nasal Cannula 2.00 01/08/21 20:00 96 Nasal Cannula 2.00 01/08/21 15:55 36.4 108 36 171/63 (99) 95 Nasal Cannula 2.00 01/08/21 15:06 37.1 120 31 108/76 91 Nasal Cannula 2.00 01/08/21 13:24 37.1 120 31 108/76 (87) 91 Nasal Cannula 2.00 1.00 01/08/21 13:00 120 01/08/21 12:05 Nasal Cannula 1.00 01/08/21 12:00 96 Nasal Cannula 1.00 01/08/21 12:00 110 31 108/76 (87) 91 Nasal Cannula 2.00 I & O 01/09/21 07:00 Intake Total 1050 ml Output Total 775 ml Balance 275 ml Height & Weight Height: 5'2.00" Weight: 280lbs. 0.0oz. 127.532368ec; 53.61 BMI Method:Stated General Appearance: Moderate Distress HEENT: PERRL/EOMI Neck: Non Tender, Supple Respiratory: Chest Non Tender, Lungs Clear, Normal Breath Sounds, No Accessory Muscle Use, No Respiratory Distress Cardiovascular: Tachycardia (tachypneic) Capillary Refill: Less Than 3 Seconds Peripheral Pulses: 3+ Carotid (R), 3+ Carotid (L) Gastrointestinal: normal bowel sounds, non tender, soft Extremity: Pedal Edema (up to knee- 3+ pitting), Swelling Neurologic/Psychiatric: Alert Skin: Warm/Dry, Mottled (legs) Lymphatic: No Adenopathy Results Lab Laboratory Tests 01/07/21 15:02 01/08/21 01:40 01/08/21 21:34 01/09/21 03:35 Assessment/Plan Assessment/Plan (Tele-ICU Physician , Progress Note ) Available chart/ vitals / labs / Images reviewed Video assessment done using teleICU camera, rest of exam as per RN Discussed with RN - more somnolent and confused this am Events overnight : Afebrile hemodynamically stable, no pressors, I/O = Drips: As per RN exam : AA=1 . somnolent Consultants: Hospital course: (01/07) 40/F- Weakness, hypoxia, inflammation on abdo. pannus, 2 L o2, lasix 40 mg ivp for incr. RR - did well - transferred to med floor 01/08 - tranferred back to ICU ( got 1mg lorazepam iv 6 hours ago) BIPAP ECHO 01/08 - 55% , RVSP 20 mm A/P Lethargy , without co2 retention - placed on BIPAP - monitor for needs for benzo and opioids - an risk for HAILE /OHV - , follow neuro assessment Acute resp failure - on BIPAP 28/02 25% rr 16-20 TV 800-1200, MV ?30L - will try to take off and follow Cellulitis , sepsis - received IVF , lactate normalized - ABX to cont -broad spectrum antibiotics (vancomycin, zosyn 01/07 acute on chronic diastolic CHF -ECHO 01/08 - 55% , RVSP 20 mm Anemia - stable - monitor Hypoxia , reps infuffiiency , on 2 L o2 - in ER given PE, DVT is high risk she was given 1x dose of 200mg lovenox yestrday -V/Q scan ordered - will try to take off BIPAP and assess if she can tolerate VQ -lower ext U/S - negative for DVT - with low HB , neg US and RVSP 20 - no indication for agressive AC now - follow CKD - Cr ? , monitor UDS positive for opioids and amphetamine -on phentermine for weight loss -on hydrocodone for foot and leg pain rib fx. seen on cxr. - no c/o or history Lines : peripf Hernandez: 01/07 OG: Nutrition: po Analgesia: na Anxiety/ delirium na VTE Prophylaxis: receicved full dose lovenox - will follow VQ - if negative will need proph dose Stress Ulcer Prophylaxis: na Glycemic Control: + Plans in collaboration with bedside consultants and IM MDs. Discussed with RN to reach out if any questions or concerns Discussed with Dr Soni A total of 27 minutes of critical care time was devoted to this patient today, required to treat and/or prevent further deterioration of critical care c ondition ( as above ) . NOÉ CAO MD Jan 09, 2021 11:48
[2021-01-09 14:04] VITALS: BP 131/86
[2021-01-09 14:25] VITALS: BP 133/91
--- NOTE | 2021-01-09 16:58 | Diagnostic Imaging Report ---
INDICATION: Bedbound. Respiratory distress. FINDINGS: 5.03 mCi of technetium 99M MAA was given intravenously with multiple images showing normal bilateral perfusion and no defects seen. IMPRESSION: Normal perfusion study. Dictated by: Dictated on workstation # [id number]
[2021-01-09 17:50] VITALS: BP 140/99
[2021-01-09 19:27] VITALS: BP 77/38
[2021-01-09] MEDS: HYDROcodone/APAP 5 MG/325 MG (LORTAB) TAB PO PRN (20:36)
[2021-01-10 01:25] VITALS: BP 116/70
[2021-01-10 03:56] LABS: BASOPHILS # (AUTO) 0.1 10^3/uL (0.0-0.1); BASOPHILS % (AUTO) 0 % (0-10); EOSINOPHILS % (AUTO) 0 % (0-10); HEMATOCRIT 26 % (35-52); HEMOGLOBIN 7.3 g/dL (11.5-16.0); LYMPHOCYTES % (AUTO) 7 % (12-44); MEAN CORPUSCULAR HEMOGLOBIN 21 pg (25-34); MEAN CORPUSCULAR HGB CONC 28 g/dL (32-36); MEAN CORPUSCULAR VOLUME 75 fL (80-99); MEAN PLATELET VOLUME 10.2 fL (9.0-12.2); MONOCYTES # (AUTO) 0.4 10^3/uL (0.0-1.0); MONOCYTES % (AUTO) 3 % (0-12); NEUTROPHILS # (AUTO) 10.8 10^3/uL (1.8-7.8); NEUTROPHILS % (AUTO) 78 % (42-75); PLATELET COUNT 285 10^3/uL (130-400); WHITE BLOOD COUNT 13.8 10^3/uL (4.3-11.0)
[2021-01-10 04:21] LABS: POTASSIUM 3.7 MMOL/L (3.6-5.0)
[2021-01-10 04:22] LABS: CALCIUM 7.9 MG/DL (8.5-10.1)
[2021-01-10 04:26] LABS: PHOSPHORUS 4.1 MG/DL (2.3-4.7)
[2021-01-10 04:27] LABS: CREATININE SERUM 2.18 MG/DL (0.60-1.30)
[2021-01-10 04:29] LABS: MAGNESIUM 2.4 MG/DL (1.6-2.4)
[2021-01-10] MEDS: POTASSIUM CL 10MEQ/50ML IVPB 50 ML IV SCH (06:06)
[2021-01-10] MEDS: MAGNESIUM 1 GM/100 ML IVPB 100 ML IV SCH (06:06)
[2021-01-10] MEDS: KCL 20 MEQ TAB (K-DUR) PO SCH (06:06)
[2021-01-10] MEDS: inSUlin ASPART (NovoLOG) 1 UNIT/0.01 ML (CHARGE PER UNIT) SC SCH ×4 (06:06→20:37)
[2021-01-10] MEDS: PIPERACILLIN/TAZOBACTAM (BULK) 4.5 GM in NS (IVPB) 100 ML IV SCH (06:13)
[2021-01-10] MEDS: HYDROcodone/APAP 5 MG/325 MG (LORTAB) TAB PO PRN ×4 (06:16→20:10)
[2021-01-10] MEDS: LACTATED RINGERS 1,000 ML IV SCH ×2 (06:34→15:23)
--- NOTE | 2021-01-10 07:25 | Progress Note ---
Subjective Subjective Date Seen by Provider: Jan 10, 2021 Time Seen by Provider: 07:24 She is doing better. More alert. Oxygen needs were 1-2L. She converses more. She did receive 1 unit pRBC. No questions at this time. Nursing reports patient's shoulder hurts and she does not want to move it. Review of Systems General: No Chills, No Night Sweats HEENT: Head Aches (better); No Visual Changes Pulmonary: Dyspnea Cardiovascular: Chest Pain, Palpitations Gastrointestinal: No: Nausea, Vomiting, Abdominal Pain Genitourinary: No Dysuria Musculoskeletal: neck pain, shoulder pain, arm pain, back pain, leg pain, foot pain Neurological: Weakness; No: Confusion Objective Exam Vital Signs Vital Signs Date Time Temp Pulse Resp B/P (MAP) Pulse Ox O2 Delivery O2 Flow Rate FiO2 01/10/21 06:35 102 16 94 Nasal Cannula 2.00 01/10/21 06:00 102 34 119/73 (88) 97 NIV Bilevel 21.00 01/10/21 05:00 98 28 119/76 (90) 98 NIV Bilevel 21.00 01/10/21 04:03 36.4 01/10/21 04:00 101 28 120/79 (93) 97 NIV Bilevel 21.00 01/10/21 04:00 NIV Bilevel 21 01/10/21 03:00 92 111/73 (86) 97 NIV Bilevel 21.00 01/10/21 02:00 96 39 114/74 (87) 98 NIV Bilevel 21.00 01/10/21 01:25 97 26 97 21.00 01/10/21 01:00 98 116/70 (85) 96 NIV Bilevel 21.00 01/10/21 01:00 98 01/10/21 00:00 NIV Bilevel 21 01/10/21 00:00 98 26 117/74 (88) 95 NIV Bilevel 21.00 01/09/21 23:34 36.3 01/09/21 23:00 97 21 126/76 (91) 97 NIV Bilevel 21.00 01/09/21 22:00 124 32 119/72 (83) 95 NIV Bilevel 21.00 01/09/21 21:00 106 121/76 (86) 96 NIV Bilevel 21.00 01/09/21 20:00 99 Nasal Cannula 2.00 01/09/21 20:00 112 29 126/91 (101) 97 Nasal Cannula 2.00 01/09/21 19:27 118 38 93 01/09/21 19:00 114 01/09/21 19:00 114 37 146/96 (113) 98 Nasal Cannula 2.00 01/09/21 18:28 99 Nasal Cannula 2.00 01/09/21 18:00 114 23 132/101 (111) 98 Nasal Cannula 2.00 01/09/21 17:50 36.0 113 33 140/99 Nasal Cannula 2.00 01/09/21 17:00 36.4 01/09/21 17:00 108 35 144/96 (112) 98 Nasal Cannula 2.00 01/09/21 16:00 98 Nasal Cannula 2.00 01/09/21 16:00 112 31 132/110 (117) 96 Nasal Cannula 2.00 01/09/21 15:00 113 49 147/100 (116) 98 Nasal Cannula 2.00 01/09/21 14:25 37.6 112 39 133/91 95 Nasal Cannula 2.00 01/09/21 14:04 37.3 113 48 131/86 95 Nasal Cannula 2.00 01/09/21 14:02 95 Nasal Cannula 2.00 01/09/21 14:00 112 30 133/91 (105) 94 Nasal Cannula 2.00 01/09/21 13:00 108 35 130/82 (98) 96 Nasal Cannula 2.00 01/09/21 13:00 107 01/09/21 12:20 99 Nasal Cannula 2.00 01/09/21 12:00 110 40 145/101 (116) 99 Nasal Cannula 2.00 01/09/21 11:50 97 Nasal Cannula 2.00 01/09/21 11:00 108 28 115/81 (92) 99 NIV Bilevel 25.00 01/09/21 10:03 107 26 100 25.00 01/09/21 10:00 111 29 115/81 (92) 100 NIV Bilevel 25.00 01/09/21 09:00 107 28 122/79 (93) 100 NIV Bilevel 25.00 01/09/21 08:20 100 NIV Bilevel 30 01/09/21 08:00 112 29 117/84 (95) 100 NIV Bilevel 25.00 01/09/21 08:00 36.1 I & O 01/10/21 07:00 Intake Total 1070 ml Output Total 835 ml Balance 235 ml General Appearance: Moderate Distress Eyes: Bilateral Eye Normal Inspection, Bilateral Eye PERRL HEENT: PERRL/EOMI Neck: Non Tender, Supple Respiratory: Chest Non Tender, Lungs Clear, Normal Breath Sounds, No Accessory Muscle Use, No Respiratory Distress Cardiovascular: Tachycardia (tachypneic) Gastrointestinal: Non Tender, Soft, Other (pannus- warm to touch, erythema, blanches, edematous- pitting) Rectal: Deferred Back: Normal Inspection Extremity: Pedal Edema (improved), Swelling Neurologic/Psychiatric: Alert Skin: Warm/Dry, Mottled (legs) Lymphatic: No Adenopathy Results Lab Laboratory Tests 01/09/21 09:55: Glucometer 162H 01/09/21 11:01: Glucometer 145H 01/09/21 16:18: Glucometer 171H 01/09/21 19:57: Glucometer 204H 01/10/21 03:20: White Blood Count 13.8H, Red Blood Count 3.45L, Hemoglobin 7.3L, Hematocrit 26L, Mean Corpuscular Volume 75L, Mean Corpuscular Hemoglobin 21L, Mean Corpuscular Hemoglobin Concent 28L, Red Cell Distribution Width 20.4H, Platelet Count 285, Mean Platelet Volume 10.2, Immature Granulocyte % (Auto) 12, Neutrophils (%) (Auto) 78H, Lymphocytes (%) (Auto) 7L, Monocytes (%) (Auto) 3, Eosinophils (%) (Auto) 0, Basophils (%) (Auto) 0, Neutrophils # (Auto) 10.8H, Lymphocytes # (Auto) 1.0, Monocytes # (Auto) 0.4, Eosinophils # (Auto) 0.0, Basophils # (Auto) 0.1, Immature Granulocyte # (Auto) 1.7H, Sodium Level 144, Potassium Level 3.7, Chloride Level 112H, Carbon Dioxide Level 17L, Anion Gap 15H, Blood Urea Nitrogen 53H, Creatinine 2.18H, Estimat Glomerular Filtration Rate 25, BUN/Creatinine Ratio 24, Glucose Level 167H, Calcium Level 7.9L, Phosphorus Level 4.1, Magnesium Level 2.4 Microbiology 01/07/21 Blood Culture - Preliminary, Resulted Strep agalactiae Group B Assessment/Plan Assessment/Plan Admission Dx severe sepsis lactic acidosis metabolic acidosis Assessment and Plan admitted 01/07/21 Patient admitted for severe sepsis - she was started on broad spectrum antibiotics (vancomycin, zosyn) and fluid bolused. Given her sedentary lifestyle over last month risk for PE, DVT is high- she was given 1x dose of 200mg lovenox. V/Q scan ordered, lower ext U/S ordered. Echo ordered. -ordered 1x dose of bicarb IV to help with her metabolic acidosis - she is responding appropriately with increased respiratory rate. -slowed her IVF down to 100cc/hr. 1x dose of lasix 40mg IV x1 with good urine output. 01/08/21- improvement- lactic acid now 2. Cr improving. Pt is yelling out in pain but it does not appear to be pain - more of a delirium attributed to her sepsis and likely underlying mood disorder. -no DVT seen in legs- starting lovenox dvt ppx. awaiting V/Q scan. Echo 55-65% LVEF. -may be able to d/c vancomycin tomorrow if cultures remain GBS. 01/09/21- d/c vancomycin. Creatinine went up. awaiting final culture results. BNP still elevated- will start [id number] iv daily. Monitor Cr. transfused 1 unit pRBC. V/Q scan negative. 01/10/21- creatinine still elevated- will change dvt ppx to heparin from lovenox. de-escalating antibiotics. starting iv iron infusions for her fe anemia. Down to 1-2L oxygen via nasal cannula. Transfer to [facility]. Discharge planning. Xray obtained does not show any fractures of her shoulder. PT to work with patient and see how she is doing as she reported she could not ambulate on admission. Prognosis: guarded- difficult medical case with both renal disease and diastolic heart failure- sepsis/infection-[place] she is better. afebrile. WBC still elevated. Problems: (1) Type 2 diabetes mellitus with hyperglycemia Assessment & Plan: SSI Hga1c 7.9 (2) Chronic kidney disease Qualifiers: Assessment & Plan: baseline Cr 1.3 to 1..5 (3) Compensated metabolic acidosis (4) Diastolic CHF Qualifiers: Qualified Codes: I50.33 - Acute on chronic diastolic (congestive) heart failure (5) HTN (hypertension) Qualifiers: Qualified Codes: I10 - Essential (primary) hypertension (6) Generalized pain (7) Panniculitis Assessment & Plan: improving (8) Acute on chronic diastolic (congestive) heart failure (9) Acute on chronic renal failure (10) Obesity hypoventilation syndrome (11) Bacteremia due to group B Streptococcus (12) Sepsis due to group B Streptococcus Qualifiers: Admission Dx severe sepsis lactic acidosis metabolic acidosis Clinical Quality Measures Admission Status Admission Dx severe sepsis lactic acidosis metabolic acidosis CHAZ ADLER MD Jan 10, 2021 07:25
[2021-01-10] MEDS: FUROSEMIDE 40 MG/4 ML INJ (LASIX) IVP SCH (08:24)
--- NOTE | 2021-01-10 14:21 | Physical Therapy Evaluation ---
PT Evaluation-General Medical Diagnosis Admission Date Jan 07, 2021 at 17:22 Medical Diagnosis: sepsis, SOA Onset Date: Jan 07, 2021 Therapy Diagnosis Therapy Diagnosis: impaired mobility, strength, endurance Height/Weight Height (Feet): 5 Height (Inches): 2.00 Weight (Pounds): 280 Weight (Ounces): 0.0 Precautions Precautions/Isolations: Fall Prevention, Standard Precautions, Pressure Ulcer Referral Physician: Zachariah Reason for Referral: Evaluation/Treatment Medical History Pertinent Medical History: DM, HTN Reviewed History: Yes Social History Home: Multilevel (split level) Current Living Status: Spouse Entry Into Home: Stairs Without Railing PT Steps Into Home: 1 Patient has 3 steps after getting into her home. Prior Prior Level of Function SCALE: Activities may be completed with or without assistive devices. 8-Imajgdxjhj-fizxjkp completes the activity by him/herself with no assistance from a helper. 5-Set-up or Clean-up Assistance-helper sets up or cleans up; patient completes activity. [place] assists only prior to or following the activity. 4-Supervision or Touching Assistance-helper provides verbal cues and/or touching/steadying and/or contact guard assistance as patient completes activity. Assistance may be provided throughout the activity or intermittently. 3-Partial/Moderate Assistance-helper does LESS THAN HALF the effort. [place] lifts, holds or supports trunk or limbs, but provides less than half the effort. 2-Substantial/Maximal Assistance-helper does MORE THAN HALF the effort. [place] lifts or holds trunk or limbs and provides more than half the effort. 8-Pxwkbgbyi-righaz does ALL the effort. Patient does none of the effort to complete the activity. Or, the assistance of 2 or more helpers is required for the patient to complete the activity. If activity was not attempted, code reason: 7-Patient Refused. 9-Not Applicable-not attempted and the patient did not perform the activity before the current illness, exacerbation or injury. 10-Not Attempted due to Environmental Limitations-(lack of equipment, weather restraints, etc.). 88-Not Attempted due to Medical Conditions or Safety Concerns. Bed Mobility: 6 Transfers (B,C,W/C): 6 Gait: 6 Indoor Mobility (Ambulation): Independent Prior Devices Use: Walker PT Evaluation-Current Subjective Patient in bed pre tx, agrees to PT, has 4/10 pain in her legs and left shoulder. Pt/Family Goals "to get stronger and have less pain" Objective Patient Orientation: Person, Place, Situation Attachments: Hernandez Catheter, IV ROM/Strength ROM Lower Extremities limited generally due to obesity Strength Lower Extremities Patient has BLE strength of between 1/5 and 2/5 with hip flexion, knee extension, knee flexion, and dorsiflexion. Sensory Vision: Functional Hearing: Functional Sensation Right Lower Extremit: Impaired Sensation Left Lower Extremity: Impaired Transfers Roll Left to Right (QC): 1 Sit to Lying (QC): 1 Lying to Sitting/Side of Bed(Q: 1 Patient requires assist of 3 for supine <-> sit. She is able to sit at the side of the bed for about 5 min without assist after getting scooted forward to the edge of the bed. She is not able to perform BLE AROM. She seems to have some muscle contraction but not enough to move against gravity. Patient has a lot of leg pain with the transfers from supine <-> sit, pain with pressure, and she has several blisters on her legs. Patient is not able to stand at this point and would probably require a ezequiel lift to get out of bed at this time. Balance Sitting Static: Fair Sitting Dynamic: Fair Assessment/Needs Patient back to bed post tx with nurse call, phone, tray, all needs met, in the room. Patient has impaired mobility, strength, endurance. She is dependent to sit to the side of the bed and would need a ezequiel for tranfsfers at this time. Rehab Potential: Guarded PT Field Radio Operator Goals Field Radio Operator Goals PT Fdc Goals Time Frame: Jan 17, 2021 Roll Left & Right (QC): 3 Sit to Lying (QC): 3 Lying-Sitting on Side/Bed(QC): 3 Sit to Stand (QC): 2 Chair/Wqq-gn-Ekmex Xfer(QC): 2 PT Plan Problem List Problem List: Activity Tolerance, Functional Strength, Safety, Balance, Gait, Transfer, Bed Mobility, ROM Treatment/Plan Treatment Plan: Continue Plan of Care Treatment Plan: Bed Mobility, Education, Functional Activity Juliana, Functional Strength, Gait, Safety, Therapeutic Exercise, Transfers Treatment Duration: Jan 17, 2021 Frequency: 6 times per week Estimated Hrs Per Day: .25 hour per day Patient and/or Family Agrees t: Yes Safety Risks/Education Patient Education: Correct Positioning, Safety Issues Teaching Recipient: Patient Teaching Methods: Demonstration, Discussion Response to Teaching: Reinforcement Needed Discharge Recommendations Plan Patient will perform bed mobility and transfer training, balance and endurance training, functional strengthening, gait training, and education, to improve functional mobility and independence at home. Therapy Discharge Recommendati: Scheduled Assistance, Home & Family, Post Acute PT Time/GCodes Time In: 1350 Time Out: 1405 Total Billed Treatment Time: 15 Total Billed Treatment 1 visit CHITRA Loyola' NIRMAL BELTRE PT Jan 10, 2021 14:21
[2021-01-10] MEDS: ceFAZolin 2 GM/50 ML (PRE-MIXED) IV SCH ×2 (14:27→22:27)
[2021-01-10] MEDS ORDERED: IRON SUCROSE 200 MG/10 ML (VENOFER) VIAL IV NR (15:00)
--- NOTE | 2021-01-10 17:30 | Diagnostic Imaging Report ---
INDICATION: Pain. FINDINGS: A single view of the shoulder was obtained. The alignment is normal. There is no fracture or dislocation. Left lung is clear. Soft tissues are unremarkable. IMPRESSION: No acute fracture or dislocation. Dictated by: Dictated on workstation # [id number]
[2021-01-11] MEDS: HYDROcodone/APAP 5 MG/325 MG (LORTAB) TAB PO PRN ×5 (00:01→22:03)
[2021-01-11] MEDS: LACTATED RINGERS 1,000 ML IV SCH ×2 (03:30→14:00)
[2021-01-11 04:57] LABS: BASOPHILS # (AUTO) 0.1 10^3/uL (0.0-0.1); BASOPHILS % (AUTO) 0 % (0-10); EOSINOPHILS % (AUTO) 0 % (0-10); HEMATOCRIT 26 % (35-52); HEMOGLOBIN 7.8 g/dL (11.5-16.0); LYMPHOCYTES % (AUTO) 5 % (12-44); MEAN CORPUSCULAR HEMOGLOBIN 22 pg (25-34); MEAN CORPUSCULAR HGB CONC 30 g/dL (32-36); MEAN CORPUSCULAR VOLUME 74 fL (80-99); MEAN PLATELET VOLUME 10.4 fL (9.0-12.2); MONOCYTES # (AUTO) 0.4 10^3/uL (0.0-1.0); MONOCYTES % (AUTO) 2 % (0-12); NEUTROPHILS # (AUTO) 15.5 10^3/uL (1.8-7.8); NEUTROPHILS % (AUTO) 77 % (42-75); PLATELET COUNT 322 10^3/uL (130-400)
[2021-01-11 05:08] LABS: POTASSIUM 3.9 MMOL/L (3.6-5.0)
[2021-01-11 05:09] LABS: CALCIUM 7.8 MG/DL (8.5-10.1)
[2021-01-11] MEDS: inSUlin ASPART (NovoLOG) 1 UNIT/0.01 ML (CHARGE PER UNIT) SC SCH ×4 (05:12→20:32)
[2021-01-11 05:13] LABS: CREATININE SERUM 2.12 MG/DL (0.60-1.30)
[2021-01-11] MEDS: POTASSIUM CL 10MEQ/50ML IVPB 50 ML IV SCH (05:14)
[2021-01-11] MEDS: KCL 20 MEQ TAB (K-DUR) PO SCH (05:15)
[2021-01-11 05:16] LABS: MAGNESIUM 2.3 MG/DL (1.6-2.4)
[2021-01-11] MEDS: MAGNESIUM 1 GM/100 ML IVPB 100 ML IV SCH (05:29)
[2021-01-11] MEDS: ceFAZolin 2 GM/50 ML (PRE-MIXED) IV SCH ×3 (05:44→22:03)
--- NOTE | 2021-01-11 07:10 | Progress Note ---
Subjective Subjective Date Seen by Provider: Jan 11, 2021 Time Seen by Provider: 07:09 No overnight events. Left shoulder no fractures- likely has frozen shoulder attributed to uncontrolled diabetes. Nursing and PT concerned about something neurologic underlying. Patient is doing better today with being alert and conversing. at bedside. Review of Systems General: No Chills, No Night Sweats HEENT: Head Aches (better); No Visual Changes Pulmonary: Dyspnea Cardiovascular: Chest Pain, Palpitations Gastrointestinal: No: Nausea, Vomiting, Abdominal Pain Genitourinary: No Dysuria Musculoskeletal: neck pain, shoulder pain, arm pain, back pain, leg pain, foot pain Neurological: Weakness; No: Confusion Objective Exam Vital Signs Vital Signs Date Time Temp Pulse Resp B/P (MAP) Pulse Ox O2 Delivery O2 Flow Rate FiO2 01/11/21 03:57 36.0 100 20 151/96 (114) 98 Nasal Cannula 2.00 01/10/21 23:43 35.2 108 20 132/84 (100) 94 Room Air 01/10/21 23:30 94 Nasal Cannula 2.00 01/10/21 21:25 94 Room Air 01/10/21 20:03 36.8 111 24 124/92 (103) 98 Room Air 01/10/21 15:25 36.1 103 18 150/92 (111) 95 Room Air 01/10/21 12:00 94 Room Air 1.00 01/10/21 12:00 36.3 104 22 117/75 (89) 94 Room Air 01/10/21 09:00 101 32 129/81 (97) 95 Nasal Cannula 1.00 01/10/21 08:27 36.3 01/10/21 08:00 102 6 118/79 (92) 98 Nasal Cannula 1.00 01/10/21 08:00 Nasal Cannula 1.00 I & O 01/11/21 07:00 Intake Total 5480 ml Output Total 1050 ml Balance 4430 ml General Appearance: Moderate Distress Eyes: Bilateral Eye Normal Inspection, Bilateral Eye PERRL HEENT: PERRL/EOMI Neck: Non Tender, Supple Respiratory: Chest Non Tender, Lungs Clear, Normal Breath Sounds, No Accessory Muscle Use, No Respiratory Distress Cardiovascular: Tachycardia (tachypneic) Gastrointestinal: Non Tender, Soft, Other (pannus- warm to touch, erythema, blanches, edematous- pitting) Rectal: Deferred Back: Normal Inspection Extremity: Pedal Edema (improved), Swelling Neurologic/Psychiatric: Alert Skin: Warm/Dry, Mottled (legs) Lymphatic: No Adenopathy Results Lab Laboratory Tests 01/10/21 11:14: Glucometer 173H 01/10/21 15:19: Glucometer 190H 01/10/21 20:34: Glucometer 179H 01/11/21 04:51: White Blood Count 20.0H, Red Blood Count 3.55L, Hemoglobin 7.8L, Hematocrit 26L, Mean Corpuscular Volume 74L, Mean Corpuscular Hemoglobin 22L, Mean Corpuscular Hemoglobin Concent 30L, Red Cell Distribution Width 20.3H, Platelet Count 322, Mean Platelet Volume 10.4, Immature Granulocyte % (Auto) 15, Neutrophils (%) (Auto) 77H, Lymphocytes (%) (Auto) 5L, Monocytes (%) (Auto) 2, Eosinophils (%) (Auto) 0, Basophils (%) (Auto) 0, Neutrophils # (Auto) 15.5H, Lymphocytes # (Auto) 1.0, Monocytes # (Auto) 0.4, Eosinophils # (Auto) 0.0, Basophils # (Auto) 0.1, Immature Granulocyte # (Auto) 3.0H, Sodium Level 139, Potassium Level 3.9, Chloride Level 108H, Carbon Dioxide Level 16L, Anion Gap 15H, Blood Urea Nitrogen 50H, Creatinine 2.12H, Estimat Glomerular Filtration Rate 26, BUN/Creatinine Ratio 24, Glucose Level 177H, Calcium Level 7.8L, Phosphorus Level 4.0, Magnesium Level 2.3 Microbiology 01/07/21 Blood Culture - Final, Complete Strep agalactiae Group B Assessment/Plan Assessment/Plan Admission Dx severe sepsis lactic acidosis metabolic acidosis Assessment and Plan admitted 01/07/21 Patient admitted for severe sepsis - she was started on broad spectrum antibiotics (vancomycin, zosyn) and fluid bolused. Given her sedentary lifestyle over last month risk for PE, DVT is high- she was given 1x dose of 200mg lovenox. V/Q scan ordered, lower ext U/S ordered. Echo ordered. -ordered 1x dose of bicarb IV to help with her metabolic acidosis - she is responding appropriately with increased respiratory rate. -slowed her IVF down to 100cc/hr. 1x dose of lasix 40mg IV x1 with good urine output. 01/08/21- improvement- lactic acid now 2. Cr improving. Pt is yelling out in pain but it does not appear to be pain - more of a delirium attributed to her sepsis and likely underlying mood disorder. -no DVT seen in legs- starting lovenox dvt ppx. awaiting V/Q scan. Echo 55-65% LVEF. -may be able to d/c vancomycin tomorrow if cultures remain GBS. 01/09/21- d/c vancomycin. Creatinine went up. awaiting final culture results. BNP still elevated- will start [id number] iv daily. Monitor Cr. transfused 1 unit pRBC. V/Q scan negative. 01/10/21- creatinine still elevated- will change dvt ppx to heparin from lovenox. de-escalating antibiotics. starting iv iron infusions for her fe anemia. Down to 1-2L oxygen via nasal cannula. Transfer to [facility]. Discharge planning. Xray obtained does not show any fractures of her shoulder. PT to work with patient and see how she is doing as she reported she could not ambulate on admission. 01/11/21- Nursing and PT concerned about something neurologic underlying. I agree will try to transfer patient with neurology inpatient services. Her physical decline has progressed over the last month and she has reported she has not been able to walk this last week; prior to this she was using a walker. Her feet and legs hurt which contributed to her decrease in ability to walk as well as her body habitus. Prognosis: guarded- difficult medical case with both renal disease and diastolic heart failure- sepsis/infection-[place] she is better. afebrile. WBC still elevated. Problems: (1) Type 2 diabetes mellitus with hyperglycemia Assessment & Plan: SSI Hga1c 7.9 (2) Chronic kidney disease Qualifiers: Assessment & Plan: baseline Cr 1.3 to 1..5 (3) Compensated metabolic acidosis (4) Diastolic CHF Qualifiers: Qualified Codes: I50.33 - Acute on chronic diastolic (congestive) heart failure (5) HTN (hypertension) Qualifiers: Qualified Codes: I10 - Essential (primary) hypertension (6) Generalized pain (7) Panniculitis Assessment & Plan: improving (8) Acute on chronic diastolic (congestive) heart failure (9) Acute on chronic renal failure (10) Obesity hypoventilation syndrome (11) Bacteremia due to group B Streptococcus (12) Sepsis due to group B Streptococcus Qualifiers: Admission Dx severe sepsis lactic acidosis metabolic acidosis Clinical Quality Measures Admission Status Admission Dx severe sepsis lactic acidosis metabolic acidosis CHAZ ADLER MD Jan 11, 2021 07:10
[2021-01-11] MEDS: FUROSEMIDE 40 MG/4 ML INJ (LASIX) IVP SCH (08:40)
--- NOTE | 2021-01-11 10:26 | Physical Therapy Daily Note ---
PT Daily Note-Current Subjective Patient yells/moans with all PROM all extremities. Pain Numeric Pain Scale: 10-Worst Possible Pain Location: Right, Left, Upper, Lower Location Body Site: Generalized Pain Description: Acute Mental Status Patient Orientation: Normal For Age Attachments: Hernandez Catheter, IV Transfers SCALE: Activities may be completed with or without assistive devices. 2-Lpqjgmyxgf-jdnoglu completes the activity by him/herself with no assistance from a helper. 5-Set-up or Clean-up Assistance-helper sets up or cleans up; patient completes activity. [place] assists only prior to or following the activity. 4-Supervision or Touching Assistance-helper provides verbal cues and/or touching/steadying and/or contact guard assistance as patient completes acti vity. Assistance may be provided throughout the activity or intermittently. 3-Partial/Moderate Assistance-helper does LESS THAN HALF the effort. [place] lifts, holds or supports trunk or limbs, but provides less than half the effort. 2-Substantial/Maximal Assistance-helper does MORE THAN HALF the effort. [place] lifts or holds trunk or limbs and provides more than half the effort. 0-Usoieurxf-tnycsy does ALL the effort. Patient does none of the effort to complete the activity. Or, the assistance of 2 or more helpers is required for the patient to complete the activity. If activity was not attempted, code reason: 7-Patient Refused. 9-Not Applicable-not attempted and the patient did not perform the activity before the current illness, exacerbation or injury. 10-Not Attempted due to Environmental Limitations-(lack of equipment, weather restraints, etc.). 88-Not Attempted due to Medical Conditions or Safety Concerns. Roll Left & Right (QC): 1 (x 3 to reposition in bed) Exercises Supine Ex: Ankle pumps, Heel Slides, Hip abd/add Supine Reps: 8 (tolerates minimal PROM and moans/yells in pain with all touch and mobilization) Assessment Patient unable to tolerate PROM and declines OOB activity. Physician notified of PT concern with patient's mobility and status. PT to increase activity as tolerated by patient. PT Mcfp Goals Mcfp Goals PT Hosiery Mater Goals Time Frame: Jan 17, 2021 Roll Left & Right (QC): 3 Sit to Lying (QC): 3 Lying-Sitting on Side/Bed(QC): 3 Sit to Stand (QC): 2 Chair/Pqi-ne-Ewwsu Xfer(QC): 2 PT Plan Treatment/Plan Treatment Plan: Continue Plan of Care Treatment Plan: Bed Mobility, Education, Functional Activity Juliana, Functional Strength, Gait, Safety, Therapeutic Exercise, Transfers Treatment Duration: Jan 17, 2021 Frequency: 6 times per week Estimated Hrs Per Day: .25 hour per day Patient and/or Family Agrees t: Yes Time/GCodes Time In: 825 Time Out: 841 Total Billed Treatment Time: 16 Total Billed Treatment 1 visit EX 16 min DIPIKA ZHANG PT Jan 11, 2021 10:26
[2021-01-11] MEDS ORDERED: GABAPENTIN 100 MG (NEURONTIN) CAP PO ONE (18:00)
[2021-01-11] MEDS: MICONAZOLE 2% POWDER (DESENEX AF) 90 GM TOP SCH (20:24)
[2021-01-12] MEDS: LACTATED RINGERS 1,000 ML IV SCH ×2 (01:17→08:21)
[2021-01-12] MEDS: ACETAMINOPHEN 325 MG TABLET PO PRN (01:50)
[2021-01-12 05:29] LABS: BASOPHILS # (AUTO) 0.1 10^3/uL (0.0-0.1); BASOPHILS % (AUTO) 0 % (0-10); EOSINOPHILS % (AUTO) 0 % (0-10); HEMATOCRIT 28 % (35-52); HEMOGLOBIN 7.8 g/dL (11.5-16.0); LYMPHOCYTES # (AUTO) 0.7 10^3/uL (1.0-4.0); LYMPHOCYTES % (AUTO) 3 % (12-44); MEAN CORPUSCULAR HEMOGLOBIN 21 pg (25-34); MEAN CORPUSCULAR HGB CONC 28 g/dL (32-36); MEAN CORPUSCULAR VOLUME 76 fL (80-99); MEAN PLATELET VOLUME 10.6 fL (9.0-12.2); MONOCYTES # (AUTO) 0.3 10^3/uL (0.0-1.0); MONOCYTES % (AUTO) 2 % (0-12); NEUTROPHILS # (AUTO) 17.3 10^3/uL (1.8-7.8); NEUTROPHILS % (AUTO) 77 % (42-75); PLATELET COUNT 349 10^3/uL (130-400); WHITE BLOOD COUNT 22.5 10^3/uL (4.3-11.0)
[2021-01-12 05:43] LABS: CALCIUM 7.9 MG/DL (8.5-10.1)
[2021-01-12] MEDS: POTASSIUM CL 10MEQ/50ML IVPB 50 ML IV SCH (05:43)
[2021-01-12] MEDS: KCL 20 MEQ TAB (K-DUR) PO SCH (05:43)
[2021-01-12 05:47] LABS: CREATININE SERUM 1.84 MG/DL (0.60-1.30)
[2021-01-12] MEDS: HYDROcodone/APAP 5 MG/325 MG (LORTAB) TAB PO PRN ×3 (05:47→20:58)
[2021-01-12] MEDS: ceFAZolin 2 GM/50 ML (PRE-MIXED) IV SCH ×3 (05:48→22:34)
[2021-01-12] MEDS: predniSONE 20 MG TAB PO SCH (05:48)
[2021-01-12 05:50] LABS: MAGNESIUM 2.4 MG/DL (1.6-2.4)
[2021-01-12] MEDS: MAGNESIUM 1 GM/100 ML IVPB 100 ML IV SCH (05:58)
[2021-01-12 06:03] LABS: ATYPICAL LYMPHOCYTES 1 %; BAND NEUTROPHILS 10 %; LYMPHOCYTES % (MANUAL) 4 %; METAMYELOCYTES % 3 %; MONOCYTES % (MANUAL) 2 %; NEUTROPHILS % (MANUAL) 80 %; NUCLEATED RED BLOOD CELLS 2
[2021-01-12 06:05] LABS: HYPOCHROMASIA MODERATE; MICROCYTOSIS MODERATE; POLYCHROMASIA SLIGHT
[2021-01-12] MEDS: inSUlin ASPART (NovoLOG) 1 UNIT/0.01 ML (CHARGE PER UNIT) SC SCH ×4 (06:14→21:03)
[2021-01-12] MEDS ORDERED: LACTATED RINGERS 1,000 ML IV SCH (08:15)
[2021-01-12] MEDS: IRON SUCROSE 200 MG/10 ML (VENOFER) VIAL IV SCH (08:21)
[2021-01-12] MEDS: MICONAZOLE 2% POWDER (DESENEX AF) 90 GM TOP SCH ×2 (08:21→20:59)
--- NOTE | 2021-01-12 08:27 | Progress Note ---
Subjective Subjective Date Seen by Provider: Jan 12, 2021 Time Seen by Provider: 07:30 was unhappy this AM. He would like more to be done for his and transferred to another facility. Miryam was in a good mood and still has some pauses in her speech but was more alert and making sense in her conversation. Review of Systems General: No Chills, No Night Sweats HEENT: Head Aches; No Visual Changes Pulmonary: Dyspnea Cardiovascular: Chest Pain, Palpitations Gastrointestinal: No: Nausea, Vomiting, Abdominal Pain Genitourinary: No Dysuria Musculoskeletal: neck pain, shoulder pain, arm pain, back pain, leg pain, foot pain Neurological: Weakness; No: Confusion Objective Exam Vital Signs Vital Signs Date Time Temp Pulse Resp B/P (MAP) Pulse Ox O2 Delivery O2 Flow Rate FiO2 01/12/21 03:54 36.1 86 24 142/95 (111) 100 Nasal Cannula 2.00 01/11/21 23:50 36.0 96 28 151/105 (120) 95 Room Air 01/11/21 20:58 93 Room Air 01/11/21 19:54 36.5 101 22 165/88 (113) 94 Room Air 01/11/21 18:40 Room Air 01/11/21 16:07 36.6 106 24 186/95 (125) 97 Room Air 01/11/21 12:46 35.6 95 18 137/92 (107) 94 Room Air 01/11/21 10:49 92 Nasal Cannula 2.00 l I & O 01/12/21 07:00 Intake Total 3690 ml Output Total 1385 ml Balance 2305 ml General Appearance: Mild Distress Eyes: Bilateral Eye Normal Inspection, Bilateral Eye PERRL HEENT: PERRL/EOMI Neck: Non Tender, Supple Respiratory: Chest Non Tender, Lungs Clear, Normal Breath Sounds, No Accessory Muscle Use, No Respiratory Distress Cardiovascular: Tachycardia (tachypneic) Gastrointestinal: Non Tender, Soft, Other (warm to touch, erythema, blanches, edematous- pitting) Rectal: Deferred Back: Normal Inspection Extremity: Pedal Edema (up to knee- 3+ pitting), Swelling Neurologic/Psychiatric: Alert Skin: Warm/Dry, Mottled (legs) Lymphatic: No Adenopathy Results Lab Laboratory Tests 01/11/21 10:09: Glucometer 181H 01/11/21 11:23: Glucometer 179H 01/11/21 15:57: Glucometer 180H 01/11/21 20:00: Stool Occult Blood Immunoassay NEGATIVE 01/11/21 20:08: Glucometer 166H 01/12/21 05:15: White Blood Count 22.5H, Red Blood Count 3.66L, Hemoglobin 7.8L, Hematocrit 28L, Mean Corpuscular Volume 76L, Mean Corpuscular Hemoglobin 21L, Mean Corpuscular Hemoglobin Concent 28L, Red Cell Distribution Width 20.7H, Platelet Count 349, Mean Platelet Volume 10.6, Immature Granulocyte % (Auto) 18, Neutrophils (%) (Auto) 77H, Lymphocytes (%) (Auto) 3L, Monocytes (%) (Auto) 2, Eosinophils (%) (Auto) 0, Basophils (%) (Auto) 0, Neutrophils # (Auto) 17.3H, Lymphocytes # (Auto) 0.7L, Monocytes # (Auto) 0.3, Eosinophils # (Auto) 0.0, Basophils # (Auto) 0.1, Immature Granulocyte # (Auto) 4.1H, Neutrophils % (Manual) 80, Lymphocytes % (Manual) 4, Monocytes % (Manual) 2, Metamyelocytes % 3, Band Neutrophils 10, Nucleated Red Blood Cells 2, Atypical Lymphocytes 1, Platelet Estimate , Polychromasia SLIGHT, Hypochromasia MODERATE, Microcytosis MODERATE, Sodium Level 136, Potassium Level 4.0, Chloride Level 105, Carbon Dioxide Level 16L, Anion Gap 15H, Blood Urea Nitrogen 49H, Creatinine 1.84H, Estimat Glomerular Filtration Rate 31, BUN/Creatinine Ratio 27, Glucose Level 239H, Calcium Level 7.9L, Phosphorus Level 5.0H, Magnesium Level 2.4 Microbiology 01/07/21 Blood Culture - Final, Complete Strep agalactiae Group B Assessment/Plan Assessment/Plan Admission Dx severe sepsis lactic acidosis metabolic acidosis Assessment and Plan admitted 01/07/21 Patient admitted for severe sepsis - she was started on broad spectrum antibiot ics (vancomycin, zosyn) and fluid bolused. Given her sedentary lifestyle over last month risk for PE, DVT is high- she was given 1x dose of 200mg lovenox. V/Q scan ordered, lower ext U/S ordered. Echo ordered. -ordered 1x dose of bicarb IV to help with her metabolic acidosis - she is responding appropriately with increased respiratory rate. -slowed her IVF down to 100cc/hr. 1x dose of lasix 40mg IV x1 with good urine output. 01/08/21- improvement- lactic acid now 2. Cr improving. Pt is yelling out in pain but it does not appear to be pain - more of a delirium attributed to her sepsis and likely underlying mood disorder. -no DVT seen in legs- starting lovenox dvt ppx. awaiting V/Q scan. Echo 55-65% LVEF. -may be able to d/c vancomycin tomorrow if cultures remain GBS. 01/09/21- d/c vancomycin. Creatinine went up. awaiting final culture results. BNP still elevated- will start [id number] iv daily. Monitor Cr. transfused 1 unit pRBC. V/Q scan negative. 01/10/21- creatinine still elevated- will change dvt ppx to heparin from lovenox. de-escalating antibiotics. starting iv iron infusions for her fe anemia. Down to 1-2L oxygen via nasal cannula. Transfer to [facility]. Discharge planning. Xray obtained does not show any fractures of her shoulder. PT to work with patient and see how she is doing as she reported she could not ambulate on admission. 01/11/21- Nursing and PT concerned about something neurologic underlying. I agree, will try to transfer patient with neurology inpatient services. Her physical decline has progressed over the last month and she has reported she has not been able to walk this last week; prior to this she was using a walker. Her feet and legs hurt which contributed to her decrease in ability to walk as well as her body habitus. [facility] and [facility] declined patient for transfer. 01/12/21- evaluating patient for possible neurological etiology (MS) as she had internuclear ophthalmoplegia, and her weakness noted by nursing and PT, change in speech. Ordered MRI brain and lumbar puncture- looking for lesions on MRI and oligoclonal bands in spinal tap. If finding suggestive of MS will start steroids (800mg prednisone orally is cheapest for 5 days). Will likely need to get Cr down <1.5 before MRI can be done- stopped lasix today and ordered 1L LR bolus. will recheck Cr at 2pm -discussed with this AM (because he was not happy with how things were going) - I discussed with him their wishes from admission were to keep cost as low as possible as they are self pay. The cost is now not as big of a concern to him at this time. Also since she came in with septicemia, acute respiratory failure and kidney failure- we needed to get these addressed prior to further workup. -checked on patient this afternoon- said Miryam has made a 180 turn for the better and he would like to hold off and transferring her out. She is able to feed herself. Unable to get the MRI due to patient not fitting in MRI machine. Awaiting lumbar puncture results. D/c IVFs as she is eating better. Creatinine trending down. Prognosis: guarded- difficult medical case with both renal disease and diastolic heart failure- sepsis/infection-[place] she is better. afebrile. WBC still elevated. Checking BMP, CBC in AM. Discharge to home when patient is up and walking. Problems: (1) Type 2 diabetes mellitus with hyperglycemia Assessment & Plan: SSI Hga1c 7.9 (2) Chronic kidney disease Qualifiers: Assessment & Plan: baseline Cr 1.3 to 1.5 (3) Compensated metabolic acidosis (4) Diastolic CHF Qualifiers: Qualified Codes: I50.33 - Acute on chronic diastolic (congestive) heart failure (5) HTN (hypertension) Qualifiers: Qualified Codes: I10 - Essential (primary) hypertension (6) Panniculitis Assessment & Plan: improving (7) Acute on chronic diastolic (congestive) heart failure (8) Acute on chronic renal failure (9) Obesity hypoventilation syndrome (10) Sepsis due to group B Streptococcus Qualifiers: Admission Dx severe sepsis lactic acidosis metabolic acidosis Clinical Quality Measures Admission Status Admission Dx severe sepsis lactic acidosis metabolic acidosis CHAZ ADLER MD Jan 12, 2021 08:26
--- NOTE | 2021-01-12 08:44 | Physical Therapy Daily Note ---
PT Daily Note-Current Subjective Patient reports she is feeling better today. Agrees to exercises only. Pain Numeric Pain Scale: 5-Moderate Pain Location: Right, Left, Joint Comment: all joints Mental Status Patient Orientation: Normal For Age Attachments: Hernandez Catheter, IV Transfers SCALE: Activities may be completed with or without assistive devices. 9-Xaufgfunvk-gmobwrl completes the activity by him/herself with no assistance from a helper. 5-Set-up or Clean-up Assistance-helper sets up or cleans up; patient completes activity. [place] assists only prior to or following the activity. 4-Supervision or Touching Assistance-helper provides verbal cues and/or to uching/steadying and/or contact guard assistance as patient completes activity. Assistance may be provided throughout the activity or intermittently. 3-Partial/Moderate Assistance-helper does LESS THAN HALF the effort. [place] lifts, holds or supports trunk or limbs, but provides less than half the effort. 2-Substantial/Maximal Assistance-helper does MORE THAN HALF the effort. [place] lifts or holds trunk or limbs and provides more than half the effort. 8-Sqcmvymrq-nmvqxp does ALL the effort. Patient does none of the effort to complete the activity. Or, the assistance of 2 or more helpers is required for the patient to complete the activity. If activity was not attempted, code reason: 7-Patient Refused. 9-Not Applicable-not attempted and the patient did not perform the activity before the current illness, exacerbation or injury. 10-Not Attempted due to Environmental Limitations-(lack of equipment, weather restraints, etc.). 88-Not Attempted due to Medical Conditions or Safety Concerns. Exercises Supine Ex: Ankle pumps, Heel Slides Supine Reps: 15 (2 sets AAROM) Assessment Patient tolerates minimal activity and remains in bed. PT to increase activity as tolerated by patient. PT Fdc Goals Automatic Profile Shaper Operator Goals PT Fdc Goals Time Frame: Jan 17, 2021 Roll Left & Right (QC): 3 Sit to Lying (QC): 3 Lying-Sitting on Side/Bed(QC): 3 Sit to Stand (QC): 2 Chair/Baj-oc-Jhfmp Xfer(QC): 2 PT Plan Treatment/Plan Treatment Plan: Continue Plan of Care Treatment Plan: Bed Mobility, Education, Functional Activity Juliana, Functional Strength, Gait, Safety, Therapeutic Exercise, Transfers Treatment Duration: Jan 17, 2021 Frequency: 6 times per week Estimated Hrs Per Day: .25 hour per day Patient and/or Family Agrees t: Yes Time/GCodes Time In: 801 Time Out: 818 Total Billed Treatment Time: 17 Total Billed Treatment 1 visit EX 17 min DIPIKA ZHANG PT Jan 12, 2021 08:44
[2021-01-12 12:01] LABS: CALCIUM 7.5 MG/DL (8.5-10.1); CREATININE SERUM 1.59 MG/DL (0.60-1.30); POTASSIUM 3.8 MMOL/L (3.6-5.0)
--- NOTE | 2021-01-12 20:52 | Diagnostic Imaging Report ---
EXAMINATION: CT head without contrast. TECHNIQUE: Multiple contiguous axial images were obtained through the brain without the use of intravenous contrast. All CT scans use one or more of the following dose optimizing techniques: automated exposure control, MA and/or KvP adjustment based on patient size and exam type or iterative reconstruction. HISTORY: Evaluate for mass. Altered mental status. COMPARISON: None available. FINDINGS: No large acute territorial ischemia, mass, or hemorrhage. No midline shift or mass effect. Nonspecific decreased attenuation is seen in the periventricular and subcortical white matter in the bilateral cerebral hemispheres. The ventricles, cortical sulci, and basilar cisterns are patent and unremarkable. The orbits are normal. Paranasal sinuses are normal. Mastoid air cells are clear. No soft tissue abnormality is seen. No osseus lesions or fractures are seen. IMPRESSION: 1. No large acute territorial ischemia, mass, or hemorrhage. 2. Nonspecific decreased attenuation in the periventricular and subcortical white matter. Findings may represent chronic ischemic changes. Consider MRI of the brain to further evaluate. Dictated by: Dictated on workstation # [id number]
[2021-01-13] MEDS: HYDROcodone/APAP 5 MG/325 MG (LORTAB) TAB PO PRN ×4 (02:30→23:30)
[2021-01-13 05:59] LABS: BASOPHILS # (AUTO) 0.1 10^3/uL (0.0-0.1); BASOPHILS % (AUTO) 1 % (0-10); EOSINOPHILS % (AUTO) 0 % (0-10); HEMATOCRIT 30 % (35-52); HEMOGLOBIN 8.3 g/dL (11.5-16.0); LYMPHOCYTES # (AUTO) 1.3 10^3/uL (1.0-4.0); LYMPHOCYTES % (AUTO) 5 % (12-44); MEAN CORPUSCULAR HEMOGLOBIN 21 pg (25-34); MEAN CORPUSCULAR HGB CONC 28 g/dL (32-36); MEAN CORPUSCULAR VOLUME 77 fL (80-99); MEAN PLATELET VOLUME 10.3 fL (9.0-12.2); MONOCYTES # (AUTO) 0.7 10^3/uL (0.0-1.0); MONOCYTES % (AUTO) 3 % (0-12); NEUTROPHILS % (AUTO) 69 % (42-75); PLATELET COUNT 335 10^3/uL (130-400); WHITE BLOOD COUNT 23.3 10^3/uL (4.3-11.0)
[2021-01-13] MEDS: ceFAZolin 2 GM/50 ML (PRE-MIXED) IV SCH ×3 (06:27→22:16)
[2021-01-13] MEDS: inSUlin ASPART (NovoLOG) 1 UNIT/0.01 ML (CHARGE PER UNIT) SC SCH ×5 (06:27→20:25)
[2021-01-13] MEDS: predniSONE 20 MG TAB PO SCH (06:29)
[2021-01-13 06:40] LABS: POTASSIUM 3.8 MMOL/L (3.6-5.0)
[2021-01-13 06:45] LABS: CREATININE SERUM 1.61 MG/DL (0.60-1.30); PHOSPHORUS 4.2 MG/DL (2.3-4.7)
[2021-01-13] MEDS: POTASSIUM CL 10MEQ/50ML IVPB 50 ML IV SCH (06:45)
[2021-01-13] MEDS: KCL 20 MEQ TAB (K-DUR) PO SCH (06:46)
[2021-01-13 06:48] LABS: MAGNESIUM 2.6 MG/DL (1.6-2.4)
[2021-01-13] MEDS: MICONAZOLE 2% POWDER (DESENEX AF) 90 GM TOP SCH ×2 (08:31→21:31)
[2021-01-13] MEDS: MAGNESIUM 1 GM/100 ML IVPB 100 ML IV SCH (08:49)
[2021-01-13] MEDS ORDERED: LIDOCAINE 1% INJ 20 ML 20 ML VIAL ONE (09:48)
[2021-01-13] MEDS ORDERED: LIDOCAINE 1% INJ 20 ML 20 ML VIAL INJ ONE (11:30)
[2021-01-13 12:01] LABS: CSF GLUCOSE 146 MG/DL (50-80)
--- NOTE | 2021-01-13 13:03 | Anesthesia-Procedure Note ---
Procedures/Interventions Procedure Start/Stop/Diagnosis Date of Procedure: Jan 13, 2021 Start Time: 09:25 Referring Physician: Zachariah Preprocedural Diagnosis: evaluate for MS Brief History Consulted to perform lumbar puncture for this patient to rule out possible MS. On my arrival, patient working with PT to sit upright on bedside. She was requiring much assistance and not tolerating positioning, as she has had progressive weakness and very limited mobility during this admission. Procedure discussed at length with both patient and her who was at bedside, and consent signed per with verbal agreement from patient. It was determined at this time that she would not tolerate sitting position, and staff members x 6 assisted with getting her side lying laterally for procedure. Unable to achieve optimal positioning due to patient's body habitus and her inability to bend or move lower extremities independently. Multiple attempts made with redirection of needle, unable to identify any anatomical landmarks. Successful access of intrathecal space with very slow return of CSF due to needle gauge. CSF 1mL collected x 4 vials with much effort. Specimens labeled and delivered to lab by ANN MARIE Anderson. Pt tolerated procedure well, considering duration and had no parasthesias or any adverse incident. Stop Time: 10:35 Lumbar Puncture Discussed Risk,Benefits: Yes Patient Consents: Yes Position: Lying, Left Sterile Technique: Yes Opening Pressure: n/a Fluid Color: clear Spinal Needle Used: Other (25 G 5inch Pencan) Procedure Notes Localized area around L4 with Lidocaine PF 1%, total of 8mL. YOLANDA JORDAN CRNA Jan 13, 2021 13:03
--- NOTE | 2021-01-13 13:09 | Physical Therapy Daily Note ---
PT Daily Note-Current Subjective Pt agreeable to attempt EOB with PT. As Pt was sitting EOB with PT, anesthesia arrived for lumbar puncture. Pt not tolerating sitting at EOB well so Pt was returned to S/L for lumbar puncture. PT assisted with Pt positioning to assist anesthesia. Pt attempting all that was asked of her, frequently crying out in pain with pain rating in LE from "10-12" at times. Mental Status Patient Orientation: Person, Place, Time, Situation Attachments: Hernandez Catheter Transfers SCALE: Activities may be completed with or without assistive devices. 2-Tpetchctsy-yqywxok completes the activity by him/herself with no assistance from a helper. 5-Set-up or Clean-up Assistance-helper sets up or cleans up; patient completes activity. [place] assists only prior to or following the activity. 4-Supervision or Touching Assistance-helper provides verbal cues and/or touching/steadying and/or contact guard assistance as patient completes activity. Assistance may be provided throughout the activity or intermittently. 3-Partial/Moderate Assistance-helper does LESS THAN HALF the effort. [place] lifts, holds or supports trunk or limbs, but provides less than half the effort. 2-Substantial/Maximal Assistance-helper does MORE THAN HALF the effort. [place] lifts or holds trunk or limbs and provides more than half the effort. 4-Iufqqswnx-muzlvf does ALL the effort. Patient does none of the effort to complete the activity. Or, the assistance of 2 or more helpers is required for the patient to complete the activity. If activity was not attempted, code reason: 7-Patient Refused. 9-Not Applicable-not attempted and the patient did not perform the activity before the current illness, exacerbation or injury. 10-Not Attempted due to Environmental Limitations-(lack of equipment, weather restraints, etc.). 88-Not Attempted due to Medical Conditions or Safety Concerns. Roll Left & Right (QC): 1 Sit to Lying (QC): 2 Lying to Sitting/Side of Bed(Q: 2 Sit to Stand (QC): 88 Chair/Iod-af-Jlvpw Xfer(QC): 88 Toilet Transfer (QC): 88 Car Transfer (QC): 88 Rolling L and R, max a x 2 Supine<->sit with HOB elevated: max/dependent assist x 1 Pt sat EOB x 5' with max A for balance as Pt leaned forward onto this PT. Multiple rolling L and R to assist with cleaning and to assist with positioning for lumbar puncture. A x 2 for up in bed. Pt performed AAROM in ankle pumps, HS and (I) QS, GS (B) Assisted with (B) hip and knee flexion to assist with positioning for lumbar puncture. Treatments LE ex, supine<->sit, seated EOB and multiple rolling and positioning in bed. Post treatment, Pt lying flat per anesthesia with needs met, nurse in room. Assessment Current Status: Fair Progress Pt tolerated fair. Pt crying out in pain but giving good effort with attempt at EOB. PT Heading Saw Operator Goals Halfway Goals PT Halfway Goals Time Frame: Jan 17, 2021 Roll Left & Right (QC): 3 Sit to Lying (QC): 3 Lying-Sitting on Side/Bed(QC): 3 Sit to Stand (QC): 2 Chair/Axr-kx-Tvubm Xfer(QC): 2 PT Plan Problem List Problem List: Activity Tolerance, Functional Strength, Safety, Balance, Gait, Transfer, Bed Mobility, ROM Treatment/Plan Treatment Plan: Continue Plan of Care Treatment Plan: Bed Mobility, Education, Functional Activity Juliana, Functional Strength, Gait, Safety, Therapeutic Exercise, Transfers Treatment Duration: Jan 17, 2021 Frequency: 6 times per week Estimated Hrs Per Day: .25 hour per day Patient and/or Family Agrees t: Yes Time/GCodes Time In: 900 Time Out: 1057 Total Billed Treatment Time: 80 Total Billed Treatment 1, FA x 80' Unattended time in room while anesthesia was attempting lumbar puncture; assisted with repositioning PRN to assist anesthesia. WAI OSEGUERA DPT Jan 13, 2021 13:09
[2021-01-13] MEDS ORDERED: meTOproloL SUCCINATE 50 MG (TOPROL XL) TAB PO NR (13:15)
[2021-01-13] MEDS ORDERED: methylPREDNISolone 125 MG (Solu-MEDROL) VIAL IVP NR (13:15)
--- NOTE | 2021-01-13 13:20 | Progress Note ---
Subjective Date Seen by a Provider: Jan 13, 2021 Time Seen by a Provider: 13:15 Subjective/Events-last exam Fwup severe sepsis, acute on chronic renal failure, acute on chronic diastolic dysfunction, generalized weakness with neurological deficits. Had LP this morning. Focused Exam Time of Focused Exam: 16:54 Objective Exam Vital Signs Date Time Temp Pulse Resp B/P (MAP) Pulse Ox O2 Delivery O2 Flow Rate FiO2 01/13/21 11:29 36.5 96 20 166/94 (118) 96 Room Air 01/13/21 08:46 36.1 96 18 162/92 (115) 96 Room Air 01/13/21 08:00 97 01/13/21 07:29 Room Air 0.00 01/13/21 04:01 36.3 86 20 133/83 (100) 94 Room Air 01/13/21 00:06 36.1 94 20 145/89 (107) 95 Room Air 01/12/21 21:00 88 Room Air 01/12/21 19:31 36.4 92 20 144/81 (102) 95 Room Air 01/12/21 15:34 36.4 97 20 163/92 (115) 94 Room Air I & O 01/13/21 07:00 Intake Total 2841 ml Output Total 1150 ml Balance 1691 ml Capillary Refill : Less Than 3 Seconds General Appearance: No Apparent Distress Respiratory: Lungs Clear, Decreased Breath Sounds Cardiovascular: Regular Rate, Rhythm, Systolic Murmur Gastrointestinal: normal bowel sounds, non tender, soft Extremity: Pedal Edema Neurologic/Psychiatric: Alert, Oriented x3 Results Lab Laboratory Tests 01/12/21 14:12: Lab Scanned Report Transfusion Reaction Form 01/12/21 15:31: Glucometer 266H 01/12/21 20:58: Glucometer 240H 01/13/21 05:51: White Blood Count 23.3H, Red Blood Count 3.88, Hemoglobin 8.3L, Hematocrit 30L, Mean Corpuscular Volume 77L, Mean Corpuscular Hemoglobin 21L, Mean Corpuscular Hemoglobin Concent 28L, Red Cell Distribution Width 21.6H, Platelet Count 335, Mean Platelet Volume 10.3, Immature Granulocyte % (Auto) 22, Neutrophils (%) (Auto) 69, Lymphocytes (%) (Auto) 5L, Monocytes (%) (Auto) 3, Eosinophils (%) (Auto) 0, Basophils (%) (Auto) 1, Neutrophils # (Auto) 16.0H, Lymphocytes # (Auto) 1.3, Monocytes # (Auto) 0.7, Eosinophils # (Auto) 0.0, Basophils # (Auto) 0.1, Immature Granulocyte # (Auto) 5.2H, Sodium Level 138, Potassium Level 3.8, Chloride Level 108H, Carbon Dioxide Level 17L, Anion Gap 13, Blood Urea Nitrogen 49H, Creatinine 1.61H, Estimat Glomerular Filtration Rate 36, BUN/Creatinine Ratio 30, Glucose Level 240H, Calcium Level 8.0L, Phosphorus Level 4.2, Magnesium Level 2.6H 01/13/21 06:04: Glucometer 220H 01/13/21 10:35: CSF Glucose 146H 01/13/21 11:16: Glucometer 259H Microbiology 01/07/21 Blood Culture - Final, Complete Strep agalactiae Group B Assessment/Plan Assessment/Plan Assess & Plan/Chief Complaint 1. Severe Sepsis--WBC count still elevated but has been on steroids and clinically improving, continue IV abx 2. Acute on Chronic Diastolic Dysfunction--improving 3. Acute on Chronic Renal Failure--BUN/Cr up a little this morning but had been trending down--will continue to monitor with treatment 4. Generalized Weakness with Neurological Deficits--speech difficulties and vision change--has LP this morning to rule out MS--will switch to high dose IV solumedrol and see response 5. Hypertension--start metoprolol 6. Diabetes mellitus with hyperglycemia--increase SSI to C and add levemir as anticipate possible worsening with doing solumedrol INA MONK DO Jan 13, 2021 13:20
[2021-01-13 15:15] LABS: APPEARANCE,CSF CLEAR; COLOR,CSF COLORLESS; WHITE BLOOD CELL,CSF 6 CELLS (0-5)
[2021-01-13 15:17] LABS: LYMPHOCYTES,CSF 99 %; RED BLOOD CELL,CSF 61 CELLS (0-0)
[2021-01-13 15:19] LABS: CSF TUBE NUMBER 4
[2021-01-13] MEDS: methylPREDNISolone 125 MG (Solu-MEDROL) VIAL IVP SCH ×2 (19:16→23:30)
[2021-01-13] MEDS: ACETAMINOPHEN 325 MG TABLET PO PRN (20:25)
[2021-01-14 05:06] LABS: BASOPHILS # (AUTO) 0.1 10^3/uL (0.0-0.1); BASOPHILS % (AUTO) 0 % (0-10); EOSINOPHILS % (AUTO) 0 % (0-10); HEMATOCRIT 35 % (35-52); LYMPHOCYTES # (AUTO) 1.1 10^3/uL (1.0-4.0); LYMPHOCYTES % (AUTO) 5 % (12-44); MEAN CORPUSCULAR HEMOGLOBIN 22 pg (25-34); MEAN CORPUSCULAR HGB CONC 28 g/dL (32-36); MEAN CORPUSCULAR VOLUME 76 fL (80-99); MONOCYTES # (AUTO) 0.3 10^3/uL (0.0-1.0); MONOCYTES % (AUTO) 1 % (0-12); NEUTROPHILS % (AUTO) 76 % (42-75); PLATELET COUNT 404 10^3/uL (130-400); WHITE BLOOD COUNT 23.6 10^3/uL (4.3-11.0)
[2021-01-14] MEDS: LORazepam INJ 2 MG/ML (ATIVAN) VIAL IVP PRN (05:06)
[2021-01-14 05:16] LABS: POTASSIUM 4.3 MMOL/L (3.6-5.0)
[2021-01-14] MEDS: ceFAZolin 2 GM/50 ML (PRE-MIXED) IV SCH ×3 (05:16→21:06)
[2021-01-14 05:18] LABS: CALCIUM 8.6 MG/DL (8.5-10.1)
[2021-01-14] MEDS: methylPREDNISolone 125 MG (Solu-MEDROL) VIAL IVP SCH ×4 (05:20→23:54)
[2021-01-14 05:22] LABS: CREATININE SERUM 1.56 MG/DL (0.60-1.30); PHOSPHORUS 3.8 MG/DL (2.3-4.7)
[2021-01-14 05:24] LABS: MAGNESIUM 2.8 MG/DL (1.6-2.4)
[2021-01-14] MEDS: POTASSIUM CL 10MEQ/50ML IVPB 50 ML IV SCH (05:50)
[2021-01-14] MEDS: KCL 20 MEQ TAB (K-DUR) PO SCH (05:50)
[2021-01-14] MEDS: MAGNESIUM 1 GM/100 ML IVPB 100 ML IV SCH (05:50)
[2021-01-14] MEDS: inSUlin ASPART (NovoLOG) 1 UNIT/0.01 ML (CHARGE PER UNIT) SC SCH ×4 (05:58→21:05)
--- NOTE | 2021-01-14 08:02 | Progress Note ---
Subjective Date Seen by a Provider: Jan 14, 2021 Time Seen by a Provider: 07:59 Subjective/Events-last exam Fwup severe sepsis, acute on chronic renal failure, acute on chronic diastolic dysfunction, generalized weakness with neurological deficits. Had LP yesterday. Is moving arms and legs a little bit more and did sit on side of bed with assist yesterday. Focused Exam Time of Focused Exam: 16:54 Objective Exam Vital Signs Date Time Temp Pulse Resp B/P (MAP) Pulse Ox O2 Delivery O2 Flow Rate FiO2 01/14/21 07:00 Room Air 01/14/21 04:36 36.8 81 21 141/65 (90) 98 Room Air 01/14/21 00:16 35.2 96 20 150/99 (116) 98 Room Air 01/13/21 21:00 97 01/13/21 19:51 35.9 99 20 156/90 (112) 94 Room Air 01/13/21 18:31 Room Air 01/13/21 16:28 36.4 90 18 149/92 (111) 94 Room Air 01/13/21 11:29 36.5 96 20 166/94 (118) 96 Room Air 01/13/21 08:46 36.1 96 18 162/92 (115) 96 Room Air 01/13/21 08:00 97 I & O 01/14/21 07:00 Intake Total 1000 ml Output Total 1450 ml Balance -450 ml Capillary Refill : Less Than 3 Seconds General Appearance: Other (drowsy--just waking up) Respiratory: Lungs Clear Cardiovascular: Regular Rate, Rhythm Gastrointestinal: normal bowel sounds, non tender, soft Extremity: Non Tender, No Calf Tenderness, Pedal Edema Neurologic/Psychiatric: Other (groggy) Results Lab Laboratory Tests 01/13/21 10:35: CSF Tube Number 4, CSF Appearance CLEAR, CSF Color COLORLESS, CSF WBC 6H, CSF RBC 61H, CSF Lymphocytes 99, CSF Mononuclear WBCs 0, CSF Polynuclear WBCs 1, CSF Glucose 146H 01/13/21 11:16: Glucometer 259H 01/13/21 16:56: Glucometer 352H 01/13/21 20:09: Glucometer 371H 01/14/21 04:50: White Blood Count 23.6H, Red Blood Count 4.63, Hemoglobin 10.0#L, Hematocrit 35, Mean Corpuscular Volume 76L, Mean Corpuscular Hemoglobin 22L, Mean Corpuscular Hemoglobin Concent 28L, Red Cell Distribution Width 22.6H, Platelet Count 404H, Mean Platelet Volume 11.0, Immature Granulocyte % (Auto) 18, Neutrophils (%) (Auto) 76H, Lymphocytes (%) (Auto) 5L, Monocytes (%) (Auto) 1, Eosinophils (%) (Auto) 0, Basophils (%) (Auto) 0, Neutrophils # (Auto) 18.0H, Lymphocytes # (Auto) 1.1, Monocytes # (Auto) 0.3, Eosinophils # (Auto) 0.0, Basophils # (Auto) 0.1, Immature Granulocyte # (Auto) 4.2H, Sodium Level 137, Potassium Level 4.3, Chloride Level 104, Carbon Dioxide Level 17L, Anion Gap 16H, Blood Urea Nitrogen 49H, Creatinine 1.56H, Estimat Glomerular Filtration Rate 37, BUN/Creatinine Ratio 31, Glucose Level 350H, Calcium Level 8.6, Phosphorus Level 3.8, Magnesium Level 2.8H Microbiology 01/07/21 Blood Culture - Final, Complete Strep agalactiae Group B Assessment/Plan Assessment/Plan Assess & Plan/Chief Complaint 1. Severe Sepsis--WBC count still elevated but has been on steroids and clinically improving, continue IV abx 2. Acute on Chronic Diastolic Dysfunction--improving 3. Acute on Chronic Renal Failure--BUN/Cr improved this morning 4. Generalized Weakness with Neurological Deficits--speech difficulties and vision change--has LP this yesterday to rule out MS--switched to high dose IV solumedrol yesterday 5. Hypertension--increase metoprolol 6. Diabetes mellitus with hyperglycemia--continue SSI to C and increase INA Burgos DO Jan 14, 2021 08:02
[2021-01-14] MEDS ORDERED: meTOproloL SUCCINATE 50 MG (TOPROL XL) TAB PO SCH (09:00)
[2021-01-14] MEDS: meTOproloL SUCCINATE 50 MG (TOPROL XL) TAB PO SCH ×2 (09:50→21:03)
[2021-01-14] MEDS: MICONAZOLE 2% POWDER (DESENEX AF) 90 GM TOP SCH ×2 (09:50→21:06)
[2021-01-14] MEDS: IRON SUCROSE 200 MG/10 ML (VENOFER) VIAL IV SCH (09:50)
[2021-01-14] MEDS: HYDROcodone/APAP 5 MG/325 MG (LORTAB) TAB PO PRN ×2 (14:13→21:04)
[2021-01-15 03:34] LABS: BASOPHILS # (AUTO) 0.1 10^3/uL (0.0-0.1); BASOPHILS % (AUTO) 1 % (0-10); EOSINOPHILS % (AUTO) 0 % (0-10); HEMATOCRIT 34 % (35-52); HEMOGLOBIN 9.4 g/dL (11.5-16.0); LYMPHOCYTES # (AUTO) 1.1 10^3/uL (1.0-4.0); LYMPHOCYTES % (AUTO) 4 % (12-44); MEAN CORPUSCULAR HEMOGLOBIN 22 pg (25-34); MEAN CORPUSCULAR HGB CONC 27 g/dL (32-36); MEAN CORPUSCULAR VOLUME 81 fL (80-99); MEAN PLATELET VOLUME 11.2 fL (9.0-12.2); MONOCYTES # (AUTO) 0.5 10^3/uL (0.0-1.0); MONOCYTES % (AUTO) 2 % (0-12); NEUTROPHILS # (AUTO) 24.1 10^3/uL (1.8-7.8); NEUTROPHILS % (AUTO) 79 % (42-75); PLATELET COUNT 351 10^3/uL (130-400)
[2021-01-15 03:49] LABS: POTASSIUM 4.5 MMOL/L (3.6-5.0)
[2021-01-15 03:50] LABS: CALCIUM 8.1 MG/DL (8.5-10.1)
[2021-01-15 03:54] LABS: PHOSPHORUS 3.8 MG/DL (2.3-4.7)
[2021-01-15 03:55] LABS: CREATININE SERUM 1.68 MG/DL (0.60-1.30); WHITE BLOOD COUNT 30.6 10^3/uL (4.3-11.0)
[2021-01-15 03:57] LABS: MAGNESIUM 2.7 MG/DL (1.6-2.4)
[2021-01-15 04:37] LABS: ATYPICAL LYMPHOCYTES 1 %; BAND NEUTROPHILS 4 %; LYMPHOCYTES % (MANUAL) 5 %; METAMYELOCYTES % 1 %; MONOCYTES % (MANUAL) 3 %; NEUTROPHILS % (MANUAL) 86 %
[2021-01-15 04:38] LABS: HYPOCHROMASIA SLIGHT; MICROCYTOSIS MODERATE; NUCLEATED RED BLOOD CELLS 6; POLYCHROMASIA SLIGHT
[2021-01-15] MEDS: inSUlin ASPART (NovoLOG) 1 UNIT/0.01 ML (CHARGE PER UNIT) SC SCH ×4 (06:22→21:44)
[2021-01-15] MEDS: POTASSIUM CL 10MEQ/50ML IVPB 50 ML IV SCH (06:23)
[2021-01-15] MEDS: MAGNESIUM 1 GM/100 ML IVPB 100 ML IV SCH (06:23)
[2021-01-15] MEDS: methylPREDNISolone 125 MG (Solu-MEDROL) VIAL IVP SCH ×3 (06:24→17:13)
[2021-01-15] MEDS: ceFAZolin 2 GM/50 ML (PRE-MIXED) IV SCH (06:24)
[2021-01-15] MEDS: KCL 20 MEQ TAB (K-DUR) PO SCH (06:24)
[2021-01-15] MEDS: HYDROcodone/APAP 5 MG/325 MG (LORTAB) TAB PO PRN ×2 (07:46→13:51)
[2021-01-15] MEDS: meTOproloL SUCCINATE 50 MG (TOPROL XL) TAB PO SCH ×2 (08:39→20:23)
--- NOTE | 2021-01-15 09:25 | Progress Note ---
Subjective Subjective Date Seen by Provider: Jan 15, 2021 Time Seen by Provider: 09:13 was not present this AM. Patient lying in bed she took 2 pain pills and now is resting comfortably. She reports she is not doing well and did not improve over the weekend. LP on Friday was not an easy LP. Review of Systems General: No Chills, No Night Sweats HEENT: Head Aches; No Visual Changes Pulmonary: Dyspnea Cardiovascular: Chest Pain, Palpitations Gastrointestinal: No: Nausea, Vomiting, Abdominal Pain Genitourinary: No Dysuria Musculoskeletal: neck pain, shoulder pain, arm pain, back pain, leg pain, foot pain Neurological: Weakness; No: Confusion Objective Exam Vital Signs Vital Signs Date Time Temp Pulse Resp B/P (MAP) Pulse Ox O2 Delivery O2 Flow Rate FiO2 01/15/21 08:30 36.1 85 24 145/94 (111) 95 Room Air 01/15/21 03:48 36.3 88 18 153/89 (110) 94 Room Air 01/14/21 23:53 36.3 90 18 143/89 (107) 94 Room Air 01/14/21 21:00 97 01/14/21 20:35 36.5 98 18 161/97 (118) 94 Room Air 01/14/21 16:20 36.3 90 24 151/91 (111) 92 Room Air 01/14/21 12:00 36.0 88 22 148/89 (108) 96 Room Air I & O 01/15/21 07:00 Intake Total 1160 ml Output Total 1275 ml Balance -115 ml General Appearance: Other (drowsy-) Eyes: Bilateral Eye Normal Inspection, Bilateral Eye PERRL HEENT: PERRL/EOMI Neck: Non Tender, Supple Respiratory: Lungs Clear Cardiovascular: Regular Rate, Rhythm Gastrointestinal: Non Tender, Soft, Other (warm to touch, erythema, blanches, edematous- pitting) Rectal: Deferred Back: Normal Inspection Extremity: Non Tender, No Calf Tenderness, Pedal Edema Neurologic/Psychiatric: Other (groggy) Skin: Warm/Dry, Mottled (legs) Lymphatic: No Adenopathy Results Lab Laboratory Tests 01/14/21 11:04: Glucometer 301H 01/14/21 16:27: Glucometer 299H 01/14/21 20:41: Glucometer 304H 01/15/21 03:10: White Blood Count 30.6*H, Red Blood Count 4.27, Hemoglobin 9.4L, Hematocrit 34L, Mean Corpuscular Volume 81, Mean Corpuscular Hemoglobin 22L, Mean Corpuscular Hemoglobin Concent 27L, Red Cell Distribution Width 23.9H, Platelet Count 351, Mean Platelet Volume 11.2, Immature Granulocyte % (Auto) 15, Neutrophils (%) (Auto) 79H, Lymphocytes (%) (Auto) 4L, Monocytes (%) (Auto) 2, Eosinophils (%) (Auto) 0, Basophils (%) (Auto) 1, Neutrophils # (Auto) 24.1H, Lymphocytes # (Auto) 1.1, Monocytes # (Auto) 0.5, Eosinophils # (Auto) 0.0, Basophils # (Auto) 0.1, Immature Granulocyte # (Auto) 4.7H, Neutrophils % (Manual) 86, Lymphocytes % (Manual) 5, Monocytes % (Manual) 3, Metamyelocytes % 1, Band Neutrophils 4, Nucleated Red Blood Cells 6, Atypical Lymphocytes 1, Percent Immature Platelet Fraction 7.1, Polychromasia SLIGHT, Hypochromasia SLIGHT, Microcytosis MODERATE, Macrocytosis SLIGHT, Sodium Level 134L, Potassium Level 4.5, Chloride Level 105, Carbon Dioxide Level 15L, Anion Gap 14, Blood Urea Nitrogen 53H, Creatinine 1.68H, Estimat Glomerular Filtration Rate 34, BUN/Creatinine Ratio 32, Glucose Level 327H, Calcium Level 8.1L, Phosphorus Level 3.8, Magnesium Level 2.7H Microbiology 01/07/21 Blood Culture - Final, Complete Strep agalactiae Group B Assessment/Plan Assessment/Plan Admission Dx severe sepsis lactic acidosis metabolic acidosis Assessment and Plan admitted 01/07/21 Patient admitted for severe sepsis - she was started on broad spectrum antibiotics (vancomycin, zosyn) and fluid bolused. Given her sedentary lifestyle over last month risk for PE, DVT is high- she was given 1x dose of 200mg lovenox. V/Q scan ordered, lower ext U/S ordered. Echo ordered. -ordered 1x dose of bicarb IV to help with her metabolic acidosis - she is responding appropriately with increased respiratory rate. -slowed her IVF down to 100cc/hr. 1x dose of lasix 40mg IV x1 with good urine output. 01/08/21- improvement- lactic acid now 2. Cr improving. Pt is yelling out in pain but it does not appear to be pain - more of a delirium attributed to her sepsis and likely underlying mood disorder. -no DVT seen in legs- starting lovenox dvt ppx. awaiting V/Q scan. Echo 55-65% LVEF. -may be able to d/c vancomycin tomorrow if cultures remain GBS. 01/09/21- d/c vancomycin. Creatinine went up. awaiting final culture results. BNP still elevated- will start [id number] iv daily. Monitor Cr. transfused 1 unit pRBC. V/Q scan negative. 01/10/21- creatinine still elevated- will change dvt ppx to heparin from lovenox. de-escalating antibiotics. starting iv iron infusions for her fe anemia. Down to 1-2L oxygen via nasal cannula. Transfer to [facility]. Discharge planning. Xray obtained does not show any fractures of her shoulder. PT to work with patient and see how she is doing as she reported she could not ambulate on admission. 01/11/21- Nursing and PT concerned about something neurologic underlying. I agree, will try to transfer patient with neurology inpatient services. Her physical decline has progressed over the last month and she has reported she has not been able to walk this last week; prior to this she was using a walker. Her feet and legs hurt which contributed to her decrease in ability to walk as well as her body habitus. [facility] and [facility] declined patient for transfer. 01/12/21- evaluating patient for possible neurological etiology (MS) as she had internuclear ophthalmoplegia, and her weakness noted by nursing and PT, change in speech. Ordered MRI brain and lumbar puncture- looking for lesions on MRI and oligoclonal bands in spinal tap. If finding suggestive of MS will start steroids (800mg prednisone orally is cheapest for 5 days). Will likely need to get Cr down <1.5 before MRI can be done- stopped lasix today and ordered 1L LR bolus. will recheck Cr at 2pm -discussed with this AM (because he was not happy with how things were going) - I discussed with him their wishes from admission were to keep cost as low as possible as they are self pay. The cost is now not as big of a concern to him at this time. Also since she came in with septicemia, acute respiratory failure and kidney failure- we needed to get these addressed prior to further workup. -checked on patient this afternoon- said Miryam has made a 180 turn for the better and he would like to hold off and transferring her out. She is able to feed herself. Unable to get the MRI due to patient not fitting in MRI machine. Awaiting lumbar puncture results. D/c IVFs as she is eating better. Creatinine trending down. 01/15/21- did not improve over weekend- WBC still trending up but her steroid dosage was increased 01/13/21- will monitor. Keeping in mind trying to transfer in [facility] system; will keep this conversation open with as he thought about it but since she was improving on 01/12/21 he wanted her to stay at [facility]. Still awaiting LP result. Treating like she has MS. perkins 20units and SSI to try and counter steroids hyperglycemia effect. -IV pulled out - will need to get another PICC line. Prognosis: guarded- difficult medical case with renal,cardiac,diabetes. Discharge to home when patient is up and walking. Problems: (1) Type 2 diabetes mellitus with hyperglycemia Assessment & Plan: SSI Hga1c 7.9 (2) Chronic kidney disease Qualifiers: Assessment & Plan: baseline Cr 1.3 to 1.5 (3) Compensated metabolic acidosis (4) Diastolic CHF Qualifiers: Qualified Codes: I50.33 - Acute on chronic diastolic (congestive) heart failure (5) HTN (hypertension) Qualifiers: Qualified Codes: I10 - Essential (primary) hypertension (6) Panniculitis Assessment & Plan: improving (7) Acute on chronic diastolic (congestive) heart failure (8) Acute on chronic renal failure (9) Obesity hypoventilation syndrome (10) Sepsis due to group B Streptococcus Qualifiers: Admission Dx severe sepsis lactic acidosis metabolic acidosis Clinical Quality Measures Admission Status Admission Dx severe sepsis lactic acidosis metabolic acidosis CHAZ ADLER MD Jan 15, 2021 09:25
--- NOTE | 2021-01-15 10:17 | Physical Therapy Progress Note ---
Therapy Progress Note Attempted PT session, however, patient unable to stay awake to participate due to pain medication. RN consulted. Will attempt later today. DIPIKA ZHANG PT Jan 15, 2021 10:17
--- NOTE | 2021-01-15 10:20 | Anesthesia-Procedure Note ---
Procedures/Interventions Procedure Start/Stop/Diagnosis Date of Procedure: Jan 15, 2021 Start Time: 10:00 Referring Physician: Zachariah Preprocedural Diagnosis: R/O MS Brief History Called by data warehouse consultant to start IV on pt in 414 that had midline D/C. Multiple attmepts per RN's without success. New #22g started left hand x 1 attempt . Covered with sterile op site and flushed easily with 10cc NS without infiltration. Report to RN Stop Time: 10:15 Postprocedural Diagnosis: R/O MS Central Line/IV Access IV : Location: Left Site: Hand IV Catheter Type: Peripheral IV GILBERT SAWYER CRNA Jan 15, 2021 10:20
[2021-01-15] MEDS: MICONAZOLE 2% POWDER (DESENEX AF) 90 GM TOP SCH ×2 (11:42→20:24)
--- NOTE | 2021-01-15 11:55 | Physical Therapy Daily Note ---
PT Daily Note-Current Subjective Patient agrees to PT. Appearance total body is extremely red Mental Status Patient Orientation: Normal For Age Attachments: Hernandez Catheter Transfers SCALE: Activities may be completed with or without assistive devices. 9-Bzctskfxbc-uydaafx completes the activity by him/herself with no assistance from a helper. 5-Set-up or Clean-up Assistance-helper sets up or cleans up; patient completes activity. [place] assists only prior to or following the activity. 4-Supervision or Touching Assistance-helper provides verbal cues and/or touching/steadying and/or contact guard assistance as patient completes activity. Assistance may be provided throughout the activity or intermittently. 3-Partial/Moderate Assistance-helper does LESS THAN HALF the effort. [place] lifts, holds or supports trunk or limbs, but provides less than half the effort. 2-Substantial/Maximal Assistance-helper does MORE THAN HALF the effort. [place] lifts or holds trunk or limbs and provides more than half the effort. 1-Sqexxtvtr-usxpkt does ALL the effort. Patient does none of the effort to complete the activity. Or, the assistance of 2 or more helpers is required for the patient to complete the activity. If activity was not attempted, code reason: 7-Patient Refused. 9-Not Applicable-not attempted and the patient did not perform the activity before the current illness, exacerbation or injury. 10-Not Attempted due to Environmental Limitations-(lack of equipment, weather restraints, etc.). 88-Not Attempted due to Medical Conditions or Safety Concerns. Roll Left & Right (QC): 1 (x 3 people x 4 sets ) patient incontinent BM requiring dependent assist of 3 to cleanse and change bedding Assessment Patient unable to assist with mobility on this date due to weakness. Patient tolerates minimal activity and is dependent with rolling and ROM bilateral LE PT Pattern Maker Programer Goals Intermediate Goals PT Intermediate Goals Time Frame: Jan 17, 2021 Roll Left & Right (QC): 3 Sit to Lying (QC): 3 Lying-Sitting on Side/Bed(QC): 3 Sit to Stand (QC): 2 Chair/Nrp-fr-Gthay Xfer(QC): 2 PT Plan Treatment/Plan Treatment Plan: Continue Plan of Care Treatment Plan: Bed Mobility, Education, Functional Activity Juliana, Functional Strength, Gait, Safety, Therapeutic Exercise, Transfers Treatment Duration: Jan 17, 2021 Frequency: 6 times per week Estimated Hrs Per Day: .25 hour per day Patient and/or Family Agrees t: Yes Time/GCodes Time In: 1127 Time Out: 1150 Total Billed Treatment Time: 23 Total Billed Treatment 1 visit FA x 2 23 min DIPIKA ZHANG PT Jan 15, 2021 11:55
[2021-01-15] MEDS: ceFAZolin 2 GM IV Premixed 50 ML IV SCH ×2 (12:04→17:13)
[2021-01-16] MEDS: methylPREDNISolone 125 MG (Solu-MEDROL) VIAL IVP SCH ×5 (00:03→23:21)
[2021-01-16] MEDS: HYDROcodone/APAP 5 MG/325 MG (LORTAB) TAB PO PRN ×3 (00:13→17:47)
[2021-01-16] MEDS: ceFAZolin 2 GM IV Premixed 50 ML IV SCH ×3 (00:18→17:29)
[2021-01-16 03:29] LABS: BASOPHILS # (AUTO) 0.1 10^3/uL (0.0-0.1); BASOPHILS % (AUTO) 0 % (0-10); EOSINOPHILS % (AUTO) 0 % (0-10); HEMATOCRIT 31 % (35-52); HEMOGLOBIN 8.7 g/dL (11.5-16.0); LYMPHOCYTES # (AUTO) 0.9 10^3/uL (1.0-4.0); LYMPHOCYTES % (AUTO) 4 % (12-44); MEAN CORPUSCULAR HEMOGLOBIN 22 pg (25-34); MEAN CORPUSCULAR HGB CONC 28 g/dL (32-36); MEAN CORPUSCULAR VOLUME 76 fL (80-99); MEAN PLATELET VOLUME 10.7 fL (9.0-12.2); MONOCYTES # (AUTO) 0.5 10^3/uL (0.0-1.0); MONOCYTES % (AUTO) 2 % (0-12); NEUTROPHILS # (AUTO) 21.6 10^3/uL (1.8-7.8); NEUTROPHILS % (AUTO) 83 % (42-75); PLATELET COUNT 346 10^3/uL (130-400); WHITE BLOOD COUNT 26.2 10^3/uL (4.3-11.0)
[2021-01-16 03:57] LABS: POTASSIUM 4.2 MMOL/L (3.6-5.0)
[2021-01-16 03:58] LABS: CALCIUM 7.8 MG/DL (8.5-10.1)
[2021-01-16 04:03] LABS: CREATININE SERUM 1.53 MG/DL (0.60-1.30); PHOSPHORUS 3.8 MG/DL (2.3-4.7)
[2021-01-16 04:05] LABS: MAGNESIUM 2.7 MG/DL (1.6-2.4)
[2021-01-16] MEDS: POTASSIUM CL 10MEQ/50ML IVPB 50 ML IV SCH (04:17)
[2021-01-16] MEDS: MAGNESIUM 1 GM/100 ML IVPB 100 ML IV SCH (04:18)
[2021-01-16] MEDS: KCL 20 MEQ TAB (K-DUR) PO SCH (04:19)
[2021-01-16] MEDS: inSUlin ASPART (NovoLOG) 1 UNIT/0.01 ML (CHARGE PER UNIT) SC SCH ×4 (06:02→21:38)
[2021-01-16] MEDS: meTOproloL SUCCINATE 50 MG (TOPROL XL) TAB PO SCH ×2 (08:38→21:37)
[2021-01-16] MEDS: IRON SUCROSE 200 MG/10 ML (VENOFER) VIAL IV SCH (08:38)
[2021-01-16] MEDS: MICONAZOLE 2% POWDER (DESENEX AF) 90 GM TOP SCH ×2 (08:39→21:38)
--- NOTE | 2021-01-16 10:28 | Physical Therapy Daily Note ---
PT Daily Note-Current Subjective Patient agrees to PT. Declined to sit EOB on this date. Mental Status Patient Orientation: Person, Time, Situation Attachments: Hernandez Catheter Transfers SCALE: Activities may be completed with or without assistive devices. 3-Lhaghtqjmg-ttncqrz completes the activity by him/herself with no assistance from a helper. 5-Set-up or Clean-up Assistance-helper sets up or cleans up; patient completes activity. [place] assists only prior to or following the activity. 4-Supervision or Touching Assistance-helper provides verbal cues and/or touching/steadying and/or contact guard assistance as patient completes activity. Assistance may be provided throughout the activity or intermittently. 3-Partial/Moderate Assistance-helper does LESS THAN HALF the effort. [place] lifts, holds or supports trunk or limbs, but provides less than half the effort. 2-Substantial/Maximal Assistance-helper does MORE THAN HALF the effort. [place] lifts or holds trunk or limbs and provides more than half the effort. 7-Ymapnflta-oolunp does ALL the effort. Patient does none of the effort to complete the activity. Or, the assistance of 2 or more helpers is required for the patient to complete the activity. If activity was not attempted, code reason: 7-Patient Refused. 9-Not Applicable-not attempted and the patient did not perform the activity before the current illness, exacerbation or injury. 10-Not Attempted due to Environmental Limitations-(lack of equipment, weather restraints, etc.). 88-Not Attempted due to Medical Conditions or Safety Concerns. Roll Left & Right (QC): 1 (x 3) bed placed in Trendelenberg to perform bed mobility and reposition patient up in bed. Exercises Supine Ex: Ankle pumps, Quad Set, Heel Slides Supine Reps: 15 (AAROM bilateral x 3 sets) Treatments Patient incontinent BM requiring dependent assist of 3 to change and cleanse patient and to perform rolling activity. Patient did attempt to assist. Patient sidelying right with pillow placement behind back, LE's and between LE's. Assessment Continued weakness and dependent assist with all mobility. Increase activity. PT Shelter Goals Shelter Goals PT Ophthalmic Aide Goals Time Frame: Jan 17, 2021 Roll Left & Right (QC): 3 Sit to Lying (QC): 3 Lying-Sitting on Side/Bed(QC): 3 Sit to Stand (QC): 2 Chair/Xsj-be-Gvmeq Xfer(QC): 2 PT Plan Treatment/Plan Treatment Plan: Continue Plan of Care Treatment Plan: Bed Mobility, Education, Functional Activity Juliana, Functional Strength, Gait, Safety, Therapeutic Exercise, Transfers Treatment Duration: Jan 17, 2021 Frequency: 6 times per week Estimated Hrs Per Day: .25 hour per day Patient and/or Family Agrees t: Yes Time/GCodes Time In: 921 Time Out: 944 Total Billed Treatment Time: 23 Total Billed Treatment 1 visit FA 15 min EX 8 min DIPIKA ZHANG PT Jan 16, 2021 10:28
--- NOTE | 2021-01-16 14:35 | Progress Note ---
Subjective Subjective Date Seen by Provider: Jan 16, 2021 Time Seen by Provider: 12:35 Patient was sleeping/resting comfortably. Left arm swelling improved. Discussed plan with patient and . Also discussed transfer out for MRI brain/spine as well as neurology consult. Pt wants to go home; would like to continue with [facility] and not transfer unless needed. Review of Systems General: No Chills, No Night Sweats HEENT: Head Aches; No Visual Changes Pulmonary: Dyspnea Cardiovascular: Chest Pain, Palpitations Gastrointestinal: No: Nausea, Vomiting, Abdominal Pain Genitourinary: No Dysuria Musculoskeletal: neck pain, shoulder pain, arm pain, back pain, leg pain, foot pain Neurological: Weakness; No: Confusion Objective Exam Vital Signs Vital Signs Date Time Temp Pulse Resp B/P (MAP) Pulse Ox O2 Delivery O2 Flow Rate FiO2 01/16/21 11:57 36.1 81 20 141/94 (110) 98 Room Air 01/16/21 09:21 Room Air 01/16/21 08:10 35.2 81 20 153/86 (108) 98 Room Air 01/16/21 08:00 Room Air 01/16/21 04:28 36.5 87 20 142/89 (106) 92 Room Air 01/16/21 00:25 36.4 99 22 158/92 (114) 95 Room Air 01/15/21 20:20 Room Air 01/15/21 19:30 36.2 86 24 148/94 (112) 95 Room Air 01/15/21 15:35 36.4 74 24 159/99 (119) 97 Room Air I & O 01/16/21 07:00 Intake Total 820 ml Output Total 900 ml Balance -80 ml General Appearance: Other (drowsy-) Eyes: Bilateral Eye Normal Inspection, Bilateral Eye PERRL HEENT: PERRL/EOMI Neck: Non Tender, Supple Respiratory: Lungs Clear Cardiovascular: Regular Rate, Rhythm Gastrointestinal: Non Tender, Soft, Other (warm to touch, erythema, blanches, edematous- pitting) Rectal: Deferred Back: Normal Inspection Extremity: Non Tender, No Calf Tenderness, Pedal Edema Neurologic/Psychiatric: Other (groggy) Skin: Warm/Dry, Mottled (legs) Lymphatic: No Adenopathy Results Lab Laboratory Tests 01/15/21 15:44: Glucometer 320H 01/15/21 19:38: Glucometer 337H 01/16/21 02:45: White Blood Count 26.2H, Red Blood Count 4.02, Hemoglobin 8.7L, Hematocrit 31L, Mean Corpuscular Volume 76L, Mean Corpuscular Hemoglobin 22L, Mean Corpuscular Hemoglobin Concent 28L, Red Cell Distribution Width 23.7H, Platelet Count 346, Mean Platelet Volume 10.7, Immature Granulocyte % (Auto) 12, Neutrophils (%) (Auto) 83H, Lymphocytes (%) (Auto) 4L, Monocytes (%) (Auto) 2, Eosinophils (%) (Auto) 0, Basophils (%) (Auto) 0, Neutrophils # (Auto) 21.6H, Lymphocytes # (Auto) 0.9L, Monocytes # (Auto) 0.5, Eosinophils # (Auto) 0.0, Basophils # (Auto) 0.1, Immature Granulocyte # (Auto) 3.1H, Sodium Level 136, Potassium Level 4.2, Chloride Level 106, Carbon Dioxide Level 18L, Anion Gap 12, Blood Urea Nitrogen 54H, Creatinine 1.53H, Estimat Glomerular Filtration Rate 38, BUN/Creatinine Ratio 35, Glucose Level 375H, Calcium Level 7.8L, Phosphorus Level 3.8, Magnesium Level 2.7H 01/16/21 05:58: Glucometer 342H 01/16/21 11:06: Glucometer 356H Microbiology 01/07/21 Blood Culture - Final, Complete Strep agalactiae Group B Assessment/Plan Assessment/Plan Admission Dx severe sepsis lactic acidosis metabolic acidosis Assessment and Plan admitted 01/07/21 Patient admitted for severe sepsis - she was started on broad spectrum antibio tics (vancomycin, zosyn) and fluid bolused. Given her sedentary lifestyle over last month risk for PE, DVT is high- she was given 1x dose of 200mg lovenox. V/Q scan ordered, lower ext U/S ordered. Echo ordered. -ordered 1x dose of bicarb IV to help with her metabolic acidosis - she is responding appropriately with increased respiratory rate. -slowed her IVF down to 100cc/hr. 1x dose of lasix 40mg IV x1 with good urine output. 01/08/21- improvement- lactic acid now 2. Cr improving. Pt is yelling out in pain but it does not appear to be pain - more of a delirium attributed to her sepsis and likely underlying mood disorder. -no DVT seen in legs- starting lovenox dvt ppx. awaiting V/Q scan. Echo 55-65% LVEF. -may be able to d/c vancomycin tomorrow if cultures remain GBS. 01/09/21- d/c vancomycin. Creatinine went up. awaiting final culture results. BNP still elevated- will start [id number] iv daily. Monitor Cr. transfused 1 unit pRBC. V/Q scan negative. 01/10/21- creatinine still elevated- will change dvt ppx to heparin from lovenox. de-escalating antibiotics. starting iv iron infusions for her fe anemia. Down to 1-2L oxygen via nasal cannula. Transfer to [facility]. Discharge planning. Xray obtained does not show any fractures of her shoulder. PT to work with patient and see how she is doing as she reported she could not ambulate on admission. 01/11/21- Nursing and PT concerned about something neurologic underlying. I agree, will try to transfer patient with neurology inpatient services. Her physical decline has progressed over the last month and she has reported she has not been able to walk this last week; prior to this she was using a walker. Her feet and legs hurt which contributed to her decrease in ability to walk as well as her body habitus. [facility] and [facility] declined patient for transfer. 01/12/21- evaluating patient for possible neurological etiology (MS) as she had internuclear ophthalmoplegia, and her weakness noted by nursing and PT, change in speech. Ordered MRI brain and lumbar puncture- looking for lesions on MRI and oligoclonal bands in spinal tap. If finding suggestive of MS will start steroids (800mg prednisone orally is cheapest for 5 days). Will likely need to get Cr down <1.5 before MRI can be done- stopped lasix today and ordered 1L LR bolus. will recheck Cr at 2pm -discussed with this AM (because he was not happy with how things were going) - I discussed with him their wishes from admission were to keep cost as low as possible as they are self pay. The cost is now not as big of a concern to him at this time. Also since she came in with septicemia, acute respiratory failure and kidney failure- we needed to get these addressed prior to further workup. -checked on patient this afternoon- said Miryam has made a 180 turn for the better and he would like to hold off and transferring her out. She is able to feed herself. Unable to get the MRI due to patient not fitting in MRI machine. Awaiting lumbar puncture results. D/c IVFs as she is eating better. Creatinine trending down. 01/15/21- did not improve over weekend- WBC still trending up but her steroid dosage was increased 01/13/21- will monitor. Keeping in mind trying to transfer in [facility] system; will keep this conversation open with as he thought about it but since she was improving on 01/12/21 he wanted her to stay at [facility]. Still awaiting LP result. Treating like she has MS. levemir 20units and SSI to try and counter steroids hyperglycemia effect. -IV pulled out - will need to get another PICC line. 01/16/21- PICC line placed today. blood sugars still elevated- increased levemir to 30 units qhs- may need to do BID. WBC trending down. Cr better. Will go ahead and do methylprednisolone 250mg [id number] and see if she has any improvement. -Need to get her up and walking and then she can go home. IV antibiotics until Friday. Prognosis: guarded- difficult medical case with renal,cardiac,diabetes. Discharge to home when patient is up and walking. Problems: (1) Type 2 diabetes mellitus with hyperglycemia Assessment & Plan: SSI Hga1c 7.9 (2) Chronic kidney disease Qualifiers: Assessment & Plan: baseline Cr 1.3 to 1.5 (3) Compensated metabolic acidosis (4) Diastolic CHF Qualifiers: Qualified Codes: I50.33 - Acute on chronic diastolic (congestive) heart failure (5) HTN (hypertension) Qualifiers: Qualified Codes: I10 - Essential (primary) hypertension (6) Panniculitis Assessment & Plan: improving (7) Acute on chronic diastolic (congestive) heart failure (8) Acute on chronic renal failure (9) Obesity hypoventilation syndrome (10) Sepsis due to group B Streptococcus Qualifiers: Admission Dx severe sepsis lactic acidosis metabolic acidosis Clinical Quality Measures Admission Status Admission Dx severe sepsis lactic acidosis metabolic acidosis CHAZ ADLER MD Jan 16, 2021 14:35
[2021-01-16] MEDS: LORazepam INJ 2 MG/ML (ATIVAN) VIAL IVP PRN (19:33)
[2021-01-17] MEDS: ceFAZolin 2 GM IV Premixed 50 ML IV SCH ×3 (01:36→16:16)
[2021-01-17] MEDS: HYDROcodone/APAP 5 MG/325 MG (LORTAB) TAB PO PRN ×3 (05:24→21:29)
[2021-01-17] MEDS: inSUlin ASPART (NovoLOG) 1 UNIT/0.01 ML (CHARGE PER UNIT) SC SCH ×4 (06:42→21:30)
[2021-01-17] MEDS: methylPREDNISolone 125 MG (Solu-MEDROL) VIAL IVP SCH ×3 (06:42→12:56)
--- NOTE | 2021-01-17 08:20 | Progress Note ---
Subjective Subjective Date Seen by Provider: Jan 17, 2021 Time Seen by Provider: 08:15 Patient was awake. PICC line was pulled out overnight (by patient accidentally) She is unsure how it happened. Will try to get a peripheral IV. PT is working with patient but not getting very far in progress. Labs were not draw this AM. Review of Systems General: No Chills, No Night Sweats HEENT: No Head Aches, No Visual Changes Pulmonary: No Dyspnea Cardiovascular: No: Chest Pain, Palpitations Gastrointestinal: No: Nausea, Vomiting, Abdominal Pain Genitourinary: No Dysuria Musculoskeletal: neck pain, shoulder pain, arm pain, back pain, leg pain, foot pain Neurological: Weakness; No: Confusion Objective Exam Vital Signs Vital Signs Date Time Temp Pulse Resp B/P (MAP) Pulse Ox O2 Delivery O2 Flow Rate FiO2 01/17/21 03:40 35.5 88 22 152/89 (110) 96 Room Air 01/16/21 23:30 36.2 89 20 145/95 (112) 94 Room Air 01/16/21 21:30 Room Air 01/16/21 20:05 36.3 86 24 136/85 (102) 94 Room Air 01/16/21 16:35 36.3 92 16 147/95 (112) 95 Room Air 01/16/21 11:57 36.1 81 20 141/94 (110) 98 Room Air 01/16/21 09:21 Room Air I & O 01/17/21 07:00 Intake Total 820 ml Output Total 1600 ml Balance -780 ml General Appearance: Mild Distress (with movement), Other (drowsy-) Eyes: Bilateral Eye Normal Inspection, Bilateral Eye PERRL HEENT: PERRL/EOMI Neck: Non Tender, Supple Respiratory: Lungs Clear Cardiovascular: Regular Rate, Rhythm Gastrointestinal: Non Tender, Soft, Other (warm to touch, erythema, blanches, edematous- pitting) Rectal: Deferred Back: Normal Inspection Extremity: Non Tender, No Calf Tenderness, Pedal Edema Neurologic/Psychiatric: Other (groggy) Skin: Warm/Dry, Mottled (legs) Lymphatic: No Adenopathy Results Lab Laboratory Tests 01/16/21 11:06: Glucometer 356H 01/16/21 16:42: Glucometer 346H 01/16/21 20:13: Glucometer 344H 01/17/21 06:17: Glucometer 351H Microbiology 01/07/21 Blood Culture - Final, Complete Strep agalactiae Group B Assessment/Plan Assessment/Plan Admission Dx severe sepsis lactic acidosis metabolic acidosis Assessment and Plan admitted 01/07/21 Patient admitted for severe sepsis - she was started on broad spectrum antibiotics (vancomycin, zosyn) and fluid bolused. Given her sedentary l ifestyle over last month risk for PE, DVT is high- she was given 1x dose of 200mg lovenox. V/Q scan ordered, lower ext U/S ordered. Echo ordered. -ordered 1x dose of bicarb IV to help with her metabolic acidosis - she is responding appropriately with increased respiratory rate. -slowed her IVF down to 100cc/hr. 1x dose of lasix 40mg IV x1 with good urine output. 01/08/21- improvement- lactic acid now 2. Cr improving. Pt is yelling out in pain but it does not appear to be pain - more of a delirium attributed to her sepsis and likely underlying mood disorder. -no DVT seen in legs- starting lovenox dvt ppx. awaiting V/Q scan. Echo 55-65% LVEF. -may be able to d/c vancomycin tomorrow if cultures remain GBS. 01/09/21- d/c vancomycin. Creatinine went up. awaiting final culture results. BNP still elevated- will start [id number] iv daily. Monitor Cr. tra nsfused 1 unit pRBC. V/Q scan negative. 01/10/21- creatinine still elevated- will change dvt ppx to heparin from lovenox. de-escalating antibiotics. starting iv iron infusions for her fe anemia. Down to 1-2L oxygen via nasal cannula. [facility] Discharge planning. Xray obtained does not show any fractures of her shoulder. PT to work with patient and see how she is doing as she reported she could not ambulate on admission. 01/11/21- Nursing and PT concerned about something neurologic underlying. I agree, will try to transfer patient with neurology inpatient services. Her physical decline has progressed over the last month and she has reported she has not been able to walk this last week; prior to this she was using a walker. Her feet and legs hurt which contributed to her decrease in ability to walk as well as her body habitus. [facility] and [facility] declined patient for transfer. 01/12/21- evaluating patient for possible neurological etiology (MS) as she had internuclear ophthalmoplegia, and her weakness noted by nursing and PT, change in speech. Ordered MRI brain and lumbar puncture- looking for lesions on MRI and oligoclonal bands in spinal tap. If finding suggestive of MS will start steroids (800mg prednisone orally is cheapest for 5 days). Will likely need to get Cr down <1.5 before MRI can be done- stopped lasix today and ordered 1L LR bolus. will recheck Cr at 2pm -discussed with this AM (because he was not happy with how things were going) - I discussed with him their wishes from admission were to keep cost as low as possible as they are self pay. The cost is now not as big of a concern to him at this time. Also since she came in with septicemia, acute respiratory failure and kidney failure- we needed to get these addressed prior to further workup. -checked on patient this afternoon- said Miryam has made a 180 turn for the better and he would like to hold off and transferring her out. She is able to feed herself. Unable to get the MRI due to patient not fitting in MRI machine. Awaiting lumbar puncture results. D/c IVFs as she is eating better. Creatinine trending down. 01/15/21- did not improve over weekend- WBC still trending up but her steroid dosage was increased 01/13/21- will monitor. Keeping in mind trying to transfer in [facility] system; will keep this conversation open with as he thought about it but since she was improving on 01/12/21 he wanted her to stay at [facility]. Still awaiting LP result. Treating like she has MS. levemir 20units and SSI to try and counter steroids hyperglycemia effect. -IV pulled out - will need to get another PICC line. 01/16/21- PICC line placed today. blood sugars still elevated- increased levemir to 30 units qhs- may need to do BID. WBC trending down. Cr better. Will go ahead and do methylprednisolone 250mg [id number] and see if she has any improvement. -Need to get her up and walking and then she can go home. IV antibiotics until Friday. 01/17/21- Cr much improved. Hgb holding steady with Fe infusions. Stopped IV methylpred. Starting prednisone taper 01/18/21. Added AM levemir for elevated blood sugars. Stopped ancef- will do ceftriaxone 1g daily IV . Stop date 01/21/21. Discharge planning- right now what is stopping us is her mobility and cost. Via [facility] for rehab? Prognosis: guarded- difficult medical case with renal,cardiac,diabetes. Discharge to home when patient is up and walking. Problems: (1) Type 2 diabetes mellitus with hyperglycemia Assessment & Plan: SSI Hga1c 7.9 (2) Chronic kidney disease Qualifiers: Assessment & Plan: baseline Cr 1.3 to 1.5 (3) Compensated metabolic acidosis (4) Diastolic CHF Qualifiers: Qualified Codes: I50.33 - Acute on chronic diastolic (congestive) heart failure (5) HTN (hypertension) Qualifiers: Qualified Codes: I10 - Essential (primary) hypertension (6) Panniculitis Assessment & Plan: improving (7) Acute on chronic diastolic (congestive) heart failure (8) Acute on chronic renal failure (9) Obesity hypoventilation syndrome (10) Sepsis due to group B Streptococcus Qualifiers: Admission Dx severe sepsis lactic acidosis metabolic acidosis Clinical Quality Measures Admission Status Admission Dx severe sepsis lactic acidosis metabolic acidosis CHAZ ADLER MD Jan 17, 2021 08:20
[2021-01-17 08:50] LABS: BASOPHILS # (AUTO) 0.1 10^3/uL (0.0-0.1); BASOPHILS % (AUTO) 0 % (0-10); EOSINOPHILS % (AUTO) 0 % (0-10); HEMATOCRIT 33 % (35-52); HEMOGLOBIN 9.5 g/dL (11.5-16.0); LYMPHOCYTES # (AUTO) 0.7 10^3/uL (1.0-4.0); LYMPHOCYTES % (AUTO) 3 % (12-44); MEAN CORPUSCULAR HEMOGLOBIN 22 pg (25-34); MEAN CORPUSCULAR HGB CONC 29 g/dL (32-36); MEAN CORPUSCULAR VOLUME 78 fL (80-99); MEAN PLATELET VOLUME 10.7 fL (9.0-12.2); MONOCYTES # (AUTO) 0.5 10^3/uL (0.0-1.0); MONOCYTES % (AUTO) 2 % (0-12); NEUTROPHILS # (AUTO) 21.8 10^3/uL (1.8-7.8); NEUTROPHILS % (AUTO) 86 % (42-75); PLATELET COUNT 402 10^3/uL (130-400); WHITE BLOOD COUNT 25.5 10^3/uL (4.3-11.0)
[2021-01-17] MEDS: meTOproloL SUCCINATE 50 MG (TOPROL XL) TAB PO SCH ×2 (09:02→21:29)
[2021-01-17 09:03] LABS: POTASSIUM 4.3 MMOL/L (3.6-5.0)
[2021-01-17 09:09] LABS: CREATININE SERUM 1.35 MG/DL (0.60-1.30); PHOSPHORUS 3.8 MG/DL (2.3-4.7)
[2021-01-17 09:11] LABS: MAGNESIUM 2.7 MG/DL (1.6-2.4)
[2021-01-17] MEDS: POTASSIUM CL 10MEQ/50ML IVPB 50 ML IV SCH (09:55)
[2021-01-17] MEDS: KCL 20 MEQ TAB (K-DUR) PO SCH (09:56)
[2021-01-17] MEDS: MAGNESIUM 1 GM/100 ML IVPB 100 ML IV SCH (09:56)
[2021-01-17] MEDS: MICONAZOLE 2% POWDER (DESENEX AF) 90 GM TOP SCH ×2 (10:04→21:31)
--- NOTE | 2021-01-17 10:23 | Physical Therapy Daily Note ---
PT Daily Note-Current Subjective Patient in bed pre tx, agrees to PT, has 4/10 pain. Appearance Patient in bed post tx with nurse call, phone, tray, all needs met. Mental Status Patient Orientation: Person, Place, Situation Transfers SCALE: Activities may be completed with or without assistive devices. 5-Rlsewqmioc-vqkyusk completes the activity by him/herself with no assistance from a helper. 5-Set-up or Clean-up Assistance-helper sets up or cleans up; patient completes activity. [place] assists only prior to or following the activity. 4-Supervision or Touching Assistance-helper provides verbal cues and/or touching/steadying and/or contact guard assistance as patient completes activity. Assistance may be provided throughout the activity or intermittently. 3-Partial/Moderate Assistance-helper does LESS THAN HALF the effort. [place] lifts, holds or supports trunk or limbs, but provides less than half the effort. 2-Substantial/Maximal Assistance-helper does MORE THAN HALF the effort. [place] lifts or holds trunk or limbs and provides more than half the effort. 9-Xbadxzjeu-oqjqhw does ALL the effort. Patient does none of the effort to complete the activity. Or, the assistance of 2 or more helpers is required for the patient to complete the activity. If activity was not attempted, code reason: 7-Patient Refused. 9-Not Applicable-not attempted and the patient did not perform the activity before the current illness, exacerbation or injury. 10-Not Attempted due to Environmental Limitations-(lack of equipment, weather restraints, etc.). 88-Not Attempted due to Medical Conditions or Safety Concerns. Roll Left & Right (QC): 1 Sit to Lying (QC): 1 Lying to Sitting/Side of Bed(Q: 1 Patient sat on the side of the bed with assist of 2, she was able to sit for about 5-7 min before needing to lay down due to fatigue. 3 people were required to lay her down and scoot her up. Then patient had to participate in rolling to each side to change her sheet and pads. Exercises Supine Ex: Heel Slides Supine Reps: 15 (LLE was AROM, RLE was AAROM) Treatments bed mobility, sitting, LE ROM Assessment Current Status: Poor Progress Patient has profound LE weakness, fatigues with just a few minutes of sitting PT Collections Officer Goals Collections Officer Goals PT Detention Goals Time Frame: Jan 17, 2021 Roll Left & Right (QC): 3 Sit to Lying (QC): 3 Lying-Sitting on Side/Bed(QC): 3 Sit to Stand (QC): 2 Chair/Bgx-pr-Tdkce Xfer(QC): 2 PT Plan Problem List Problem List: Activity Tolerance, Functional Strength, Safety, Balance, Gait, Transfer, Bed Mobility, ROM Treatment/Plan Treatment Plan: Continue Plan of Care Treatment Plan: Bed Mobility, Education, Functional Activity Juliana, Functional Strength, Gait, Safety, Therapeutic Exercise, Transfers Treatment Duration: Jan 17, 2021 Frequency: 6 times per week Estimated Hrs Per Day: .25 hour per day Patient and/or Family Agrees t: Yes Safety Risks/Education Patient Education: Correct Positioning, Safety Issues Teaching Recipient: Patient Teaching Methods: Demonstration, Discussion Response to Teaching: Reinforcement Needed Time/GCodes Time In: 0955 Time Out: 1012 Total Billed Treatment Time: 17 Total Billed Treatment 1 visit FA 17' NIRMAL BELTRE PT Jan 17, 2021 10:23
[2021-01-17] MEDS: ACETAMINOPHEN 325 MG TABLET PO PRN (16:41)
[2021-01-17] MEDS: cefTRIAXone 1,000 MG in WATER (STERILE) FOR INJECTION 10 ML IV SCH (18:39)
[2021-01-18] MEDS: inSUlin ASPART (NovoLOG) 1 UNIT/0.01 ML (CHARGE PER UNIT) SC SCH ×4 (06:37→20:50)
[2021-01-18 07:11] LABS: BASOPHILS % (AUTO) 0 % (0-10); EOSINOPHILS % (AUTO) 0 % (0-10); HEMATOCRIT 32 % (35-52); HEMOGLOBIN 8.9 g/dL (11.5-16.0); LYMPHOCYTES # (AUTO) 0.5 10^3/uL (1.0-4.0); LYMPHOCYTES % (AUTO) 2 % (12-44); MEAN CORPUSCULAR HEMOGLOBIN 22 pg (25-34); MEAN CORPUSCULAR HGB CONC 28 g/dL (32-36); MEAN CORPUSCULAR VOLUME 79 fL (80-99); MEAN PLATELET VOLUME 10.6 fL (9.0-12.2); MONOCYTES # (AUTO) 0.9 10^3/uL (0.0-1.0); MONOCYTES % (AUTO) 4 % (0-12); NEUTROPHILS # (AUTO) 18.2 10^3/uL (1.8-7.8); NEUTROPHILS % (AUTO) 87 % (42-75); PLATELET COUNT 391 10^3/uL (130-400)
[2021-01-18 07:33] LABS: CREATININE SERUM 1.31 MG/DL (0.60-1.30); PHOSPHORUS 3.7 MG/DL (2.3-4.7); POTASSIUM 4.6 MMOL/L (3.6-5.0)
[2021-01-18] MEDS ORDERED: predniSONE 20 MG TAB PO NR (08:00)
--- NOTE | 2021-01-18 09:47 | Progress Note ---
Subjective Subjective Date Seen by Provider: Jan 18, 2021 Time Seen by Provider: 09:42 Patient was awake but states she feels groggy. She would like to go home but she can't take care of herself- she is willing to try and get up today but did not tolerate sitting at edge of bed yesterday. Review of Systems General: No Chills, No Night Sweats HEENT: No Head Aches, No Visual Changes Pulmonary: No Dyspnea Cardiovascular: No: Chest Pain, Palpitations Gastrointestinal: No: Nausea, Vomiting, Abdominal Pain Genitourinary: No Dysuria Musculoskeletal: neck pain, shoulder pain, arm pain, back pain, leg pain, foot pain Neurological: Weakness Objective Exam Vital Signs Vital Signs Date Time Temp Pulse Resp B/P (MAP) Pulse Ox O2 Delivery O2 Flow Rate FiO2 01/18/21 08:30 36.2 85 20 143/87 (105) 98 Room Air 01/18/21 04:10 35.6 86 20 139/90 (106) 96 Room Air 01/18/21 00:32 35.9 94 20 149/85 (106) 96 Room Air 01/17/21 21:00 Room Air 01/17/21 19:40 36.1 94 22 164/85 (111) 98 Room Air 01/17/21 16:00 36.6 99 20 155/95 (115) 95 Room Air 01/17/21 13:05 36.7 89 20 149/93 (111) 94 Room Air 01/17/21 12:30 35.4 92 20 139/99 (112) 97 Room Air I & O 01/18/21 06:59 Intake Total 800 ml Output Total 1100 ml Balance -300 ml General Appearance: Mild Distress, Other Eyes: Bilateral Eye Normal Inspection, Bilateral Eye PERRL HEENT: PERRL/EOMI Neck: Non Tender, Supple Respiratory: Lungs Clear Cardiovascular: Regular Rate, Rhythm Gastrointestinal: Non Tender, Soft, Other Rectal: Deferred Back: Normal Inspection Extremity: Non Tender, No Calf Tenderness, Pedal Edema Neurologic/Psychiatric: Other Skin: Warm/Dry, Mottled Lymphatic: No Adenopathy Results Lab Laboratory Tests 01/17/21 10:49: Glucometer 390H 01/17/21 16:00: Glucometer 383H 01/17/21 20:09: Glucometer 354H 01/18/21 05:11: Glucometer 324H 01/18/21 06:43: White Blood Count 21.0H, Red Blood Count 3.99, Hemoglobin 8.9L, Hematocrit 32L, Mean Corpuscular Volume 79L, Mean Corpuscular Hemoglobin 22L, Mean Corpuscular Hemoglobin Concent 28L, Red Cell Distribution Width 26.0H, Platelet Count 391, Mean Platelet Volume 10.6, Immature Granulocyte % (Auto) 7, Neutrophils (%) (Auto) 87H, Lymphocytes (%) (Auto) 2L, Monocytes (%) (Auto) 4, Eosinophils (%) (Auto) 0, Basophils (%) (Auto) 0, Neutrophils # (Auto) 18.2H, Lymphocytes # (Auto) 0.5L, Monocytes # (Auto) 0.9, Eosinophils # (Auto) 0.0, Basophils # (Auto) 0.0, Immature Granulocyte # (Auto) 1.4H, Sodium Level 137, Potassium Level 4.6, Chloride Level 109H, Carbon Dioxide Level 19L, Anion Gap 9, Blood Urea Nitrogen 55H, Creatinine 1.31H, Estimat Glomerular Filtration Rate 45, BUN/Creatinine Ratio 42, Glucose Level 317H, Calcium Level 8.0L, Phosphorus Level 3.7 Microbiology 01/07/21 Blood Culture - Final, Complete Strep agalactiae Group B Assessment/Plan Assessment/Plan Admission Dx severe sepsis lactic acidosis metabolic acidosis Assessment and Plan admitted 01/07/21 Patient admitted for severe sepsis - she was started on broad spectrum antibiotics (vancomycin, zosyn) and fluid bolused. Given her sedentary lif estyle over last month risk for PE, DVT is high- she was given 1x dose of 200mg lovenox. V/Q scan ordered, lower ext U/S ordered. Echo ordered. -ordered 1x dose of bicarb IV to help with her metabolic acidosis - she is responding appropriately with increased respiratory rate. -slowed her IVF down to 100cc/hr. 1x dose of lasix 40mg IV x1 with good urine output. 01/08/21- improvement- lactic acid now 2. Cr improving. Pt is yelling out in pain but it does not appear to be pain - more of a delirium attributed to her sepsis and likely underlying mood disorder. -no DVT seen in legs- starting lovenox dvt ppx. awaiting V/Q scan. Echo 55-65% LVEF. -may be able to d/c vancomycin tomorrow if cultures remain GBS. 01/09/21- d/c vancomycin. Creatinine went up. awaiting final culture results. BNP still elevated- will start [id number] iv daily. Monitor Cr. trans fused 1 unit pRBC. V/Q scan negative. 01/10/21- creatinine still elevated- will change dvt ppx to heparin from lovenox. de-escalating antibiotics. starting iv iron infusions for her fe anemia. Down to 1-2L oxygen via nasal cannula. [facility]. Discharge planning. Xray obtained does not show any fractures of her shoulder. PT to work with patient and see how she is doing as she reported she could not ambulate on admission. 01/11/21- Nursing and PT concerned about something neurologic underlying. I agree, will try to transfer patient with neurology inpatient services. Her physical decline has progressed over the last month and she has reported she has not been able to walk this last week; prior to this she was using a walker. Her feet and legs hurt which contributed to her decrease in ability to walk as well as her body habitus. [facility] and [facility] declined patient for transfer. 01/12/21- evaluating patient for possible neurological etiology (MS) as she had internuclear ophthalmoplegia, and her weakness noted by nursing and PT, change in speech. Ordered MRI brain and lumbar puncture- looking for lesions on MRI and oligoclonal bands in spinal tap. If finding suggestive of MS will start steroids (800mg prednisone orally is cheapest for 5 days). Will likely need to get Cr down <1.5 before MRI can be done- stopped lasix today and ordered 1L LR bolus. will recheck Cr at 2pm -discussed with this AM (because he was not happy with how things were going) - I discussed with him their wishes from admission were to keep cost as low as possible as they are self pay. The cost is now not as big of a concern to him at this time. Also since she came in with septicemia, acute respiratory failure and kidney failure- we needed to get these addressed prior to further workup. -checked on patient this afternoon- said Miryam has made a 180 turn for the better and he would like to hold off and transferring her out. She is able to feed herself. Unable to get the MRI due to patient not fitting in MRI machine. Awaiting lumbar puncture results. D/c IVFs as she is eating better. Creatinine trending down. 01/15/21- did not improve over weekend- WBC still trending up but her steroid dosage was increased 01/13/21- will monitor. Keeping in mind trying to transfer in [facility] system; will keep this conversation open with as he thought about it but since she was improving on 01/12/21 he wanted her to stay at [facility]. Still awaiting LP result. Treating like she has MS. perkins 20units and SSI to try and counter steroids hyperglycemia effect. -IV pulled out - will need to get another PICC line. 01/16/21- PICC line placed today. blood sugars still elevated- increased levemir to 30 units qhs- may need to do BID. WBC trending down. Cr better. Will go ahead and do methylprednisolone 250mg [id number] and see if she has any improvement. -Need to get her up and walking and then she can go home. IV antibiotics until Friday. 01/17/21- Cr much improved. Hgb holding steady with Fe infusions. Stopped IV methylpred. Starting prednisone taper 01/18/21. Added AM levemir for elevated blood sugars. Stopped ancef- will do ceftriaxone 1g daily IV . Stop date 01/21/21. Discharge planning- right now what is stopping us is her mobility and cost. Via [facility] [place] for rehab? 01/18/21- still awaiting LP results- should be back tomorrow or Friday. PT to continue working with patient because she could go home if she was walking/able to take care of herself. Kidneys at baseline. Fe infusions are helping with her Fe def anemia Prognosis: guarded- difficult medical case with renal,cardiac,diabetes,autoi mmune,neuro. Discharge to home when patient is up and walking. Problems: (1) Type 2 diabetes mellitus with hyperglycemia Assessment & Plan: SSI Hga1c 7.9 (2) Chronic kidney disease Qualifiers: Assessment & Plan: baseline Cr 1.3 to 1.5 (3) Compensated metabolic acidosis (4) Diastolic CHF Qualifiers: Qualified Codes: I50.33 - Acute on chronic diastolic (congestive) heart failure (5) HTN (hypertension) Qualifiers: Qualified Codes: I10 - Essential (primary) hypertension (6) Panniculitis Assessment & Plan: improving (7) Acute on chronic diastolic (congestive) heart failure (8) Acute on chronic renal failure (9) Obesity hypoventilation syndrome (10) Sepsis due to group B Streptococcus Qualifiers: Admission Dx severe sepsis lactic acidosis metabolic acidosis Clinical Quality Measures Admission Status Admission Dx severe sepsis lactic acidosis metabolic acidosis CHAZ ADLER MD Jan 18, 2021 09:47
[2021-01-18] MEDS: meTOproloL SUCCINATE 50 MG (TOPROL XL) TAB PO SCH ×2 (09:59→20:48)
[2021-01-18] MEDS: IRON SUCROSE 200 MG/10 ML (VENOFER) VIAL IV SCH (10:00)
[2021-01-18] MEDS: MICONAZOLE 2% POWDER (DESENEX AF) 90 GM TOP SCH ×2 (10:04→20:48)
--- NOTE | 2021-01-18 10:17 | Physical Therapy Daily Note ---
PT Daily Note-Current Subjective Patient agrees to PT. Mental Status Patient Orientation: Person, Time, Situation Attachments: Hernandez Catheter Transfers SCALE: Activities may be completed with or without assistive devices. 5-Ewytmkujbz-gsluchs completes the activity by him/herself with no assistance from a helper. 5-Set-up or Clean-up Assistance-helper sets up or cleans up; patient completes activity. [place] assists only prior to or following the activity. 4-Supervision or Touching Assistance-helper provides verbal cues and/or touching/steadying and/or contact guard assistance as patient completes activity. Assistance may be provided throughout the activity or intermittently. 3-Partial/Moderate Assistance-helper does LESS THAN HALF the effort. [place] lifts, holds or supports trunk or limbs, but provides less than half the effort. 2-Substantial/Maximal Assistance-helper does MORE THAN HALF the effort. [place] lifts or holds trunk or limbs and provides more than half the effort. 2-Fmhestbpf-gvvujo does ALL the effort. Patient does none of the effort to complete the activity. Or, the assistance of 2 or more helpers is required for the patient to complete the activity. If activity was not attempted, code reason: 7-Patient Refused. 9-Not Applicable-not attempted and the patient did not perform the activity before the current illness, exacerbation or injury. 10-Not Attempted due to Environmental Limitations-(lack of equipment, weather restraints, etc.). 88-Not Attempted due to Medical Conditions or Safety Concerns. Roll Left & Right (QC): 1 (x 3) Chair/Lid-ep-Dcvsa Xfer(QC): 1 (x 3 Katrin Lift) Exercises Supine Ex: Ankle pumps, Heel Slides Supine Reps: 15 Seated Therapy Exercises: Long arc quads (15) Assessment Patient continues to require dependent assist of 3 staff for mobility. Patient tolerates minimal activity. Up in recliner via Katrin Transfer. PT Naval Aircrewman Operator Goals Naval Aircrewman Operator Goals PT Care Home Goals Time Frame: Jan 17, 2021 Roll Left & Right (QC): 3 Sit to Lying (QC): 3 Lying-Sitting on Side/Bed(QC): 3 Sit to Stand (QC): 2 Chair/Yup-py-Yjpoc Xfer(QC): 2 PT Plan Treatment/Plan Treatment Plan: Continue Plan of Care Treatment Plan: Bed Mobility, Education, Functional Activity Juliana, Functional Strength, Gait, Safety, Therapeutic Exercise, Transfers Treatment Duration: Jan 17, 2021 Frequency: 6 times per week Estimated Hrs Per Day: .25 hour per day Patient and/or Family Agrees t: Yes Time/GCodes Time In: 935 Time Out: 958 Total Billed Treatment Time: 23 Total Billed Treatment 1 visit FA x 2 23 min DIPIKA ZHANG PT Jan 18, 2021 10:17
[2021-01-18] MEDS: HYDROcodone/APAP 5 MG/325 MG (LORTAB) TAB PO PRN ×2 (10:18→15:51)
[2021-01-18] MEDS: POTASSIUM CL 10MEQ/50ML IVPB 50 ML IV SCH (10:31)
[2021-01-18] MEDS: KCL 20 MEQ TAB (K-DUR) PO SCH (10:31)
[2021-01-18] MEDS: MAGNESIUM 1 GM/100 ML IVPB 100 ML IV SCH (11:52)
[2021-01-18] MEDS: ONDANSETRON 4 MG/2 ML (SDV) Z0FRAN IV PRN (15:51)
[2021-01-18] MEDS: fentaNYL PATCH 25 MCG (DURAGESIC) TD SCH (16:09)
[2021-01-18] MEDS: cefTRIAXone 1,000 MG in WATER (STERILE) FOR INJECTION 10 ML IV SCH (18:26)
[2021-01-19 05:34] LABS: BASOPHILS % (AUTO) 0 % (0-10); EOSINOPHILS % (AUTO) 0 % (0-10); HEMATOCRIT 31 % (35-52); HEMOGLOBIN 8.5 g/dL (11.5-16.0); LYMPHOCYTES # (AUTO) 0.5 10^3/uL (1.0-4.0); LYMPHOCYTES % (AUTO) 3 % (12-44); MEAN CORPUSCULAR HEMOGLOBIN 22 pg (25-34); MEAN CORPUSCULAR HGB CONC 27 g/dL (32-36); MEAN CORPUSCULAR VOLUME 81 fL (80-99); MEAN PLATELET VOLUME 11.1 fL (9.0-12.2); MONOCYTES # (AUTO) 0.8 10^3/uL (0.0-1.0); MONOCYTES % (AUTO) 4 % (0-12); NEUTROPHILS # (AUTO) 16.1 10^3/uL (1.8-7.8); NEUTROPHILS % (AUTO) 87 % (42-75); PLATELET COUNT 404 10^3/uL (130-400); WHITE BLOOD COUNT 18.3 10^3/uL (4.3-11.0)
[2021-01-19 05:45] LABS: POTASSIUM 4.6 MMOL/L (3.6-5.0)
[2021-01-19 05:46] LABS: CALCIUM 7.7 MG/DL (8.5-10.1)
[2021-01-19 05:50] LABS: PHOSPHORUS 3.5 MG/DL (2.3-4.7)
[2021-01-19 05:51] LABS: CREATININE SERUM 1.17 MG/DL (0.60-1.30)
[2021-01-19 05:53] LABS: MAGNESIUM 2.5 MG/DL (1.6-2.4)
[2021-01-19] MEDS: POTASSIUM CL 10MEQ/50ML IVPB 50 ML IV SCH (05:53)
[2021-01-19] MEDS: KCL 20 MEQ TAB (K-DUR) PO SCH (05:54)
[2021-01-19] MEDS: MAGNESIUM 1 GM/100 ML IVPB 100 ML IV SCH (05:56)
[2021-01-19] MEDS: inSUlin ASPART (NovoLOG) 1 UNIT/0.01 ML (CHARGE PER UNIT) SC SCH ×4 (06:04→20:32)
[2021-01-19] MEDS ORDERED: predniSONE 20 MG TAB PO NR (08:00)
--- NOTE | 2021-01-19 08:02 | Progress Note ---
Subjective Subjective Date Seen by Provider: Jan 19, 2021 Time Seen by Provider: 08:10 She was having increased pain yesterday likely in part to PT. Fentanyl patch applied which has helped. Patient and had no new questions this AM. Review of Systems General: No Chills, No Night Sweats HEENT: No Head Aches, No Visual Changes Pulmonary: No Dyspnea Cardiovascular: No: Chest Pain, Palpitations Gastrointestinal: No: Nausea, Vomiting, Abdominal Pain Genitourinary: No Dysuria Musculoskeletal: neck pain, shoulder pain, arm pain, back pain, leg pain, foot pain Neurological: Weakness Objective Exam Vital Signs Vital Signs Date Time Temp Pulse Resp B/P (MAP) Pulse Ox O2 Delivery O2 Flow Rate FiO2 01/19/21 07:35 36.4 87 20 154/102 (119) 96 Room Air 01/19/21 04:00 35.7 84 22 135/79 (97) 99 Room Air 01/19/21 01:02 36.2 87 22 124/84 (97) 96 Room Air 01/19/21 00:00 36.2 87 22 124/84 (97) 96 Room Air 01/18/21 20:50 Room Air 01/18/21 19:27 36.2 94 22 156/102 (120) 100 Room Air 01/18/21 16:00 35.8 87 22 155/98 (117) 98 Room Air 01/18/21 13:32 86 20 156/95 (115) 97 Room Air 01/18/21 12:07 36.2 84 20 128/84 (99) 98 Room Air 01/18/21 08:58 Room Air 01/18/21 08:30 36.2 85 20 143/87 (105) 98 Room Air I & O 01/19/21 06:59 Intake Total 1110 ml Output Total 1250 ml Balance -140 ml General Appearance: Mild Distress, Other (pain with movement) Eyes: Bilateral Eye Normal Inspection, Bilateral Eye PERRL HEENT: PERRL/EOMI Neck: Non Tender, Supple Respiratory: Lungs Clear Cardiovascular: Regular Rate, Rhythm Gastrointestinal: Non Tender, Soft, Other Rectal: Deferred Back: Normal Inspection Extremity: Non Tender, No Calf Tenderness, Pedal Edema Neurologic/Psychiatric: Other Skin: Warm/Dry, Mottled Lymphatic: No Adenopathy Results Lab Laboratory Tests 01/18/21 10:54: Glucometer 328H 7/8/21 15:39: Glucometer 304H 01/18/21 20:38: Glucometer 303H 01/19/21 05:14: White Blood Count 18.3H, Red Blood Count 3.82, Hemoglobin 8.5L, Hematocrit 31L, Mean Corpuscular Volume 81, Mean Corpuscular Hemoglobin 22L, Mean Corpuscular Hemoglobin Concent 27L, Red Cell Distribution Width 26.9H, Platelet Count 404H, Mean Platelet Volume 11.1, Immature Granulocyte % (Auto) 6, Neutrophils (%) (Auto) 87H, Lymphocytes (%) (Auto) 3L, Monocytes (%) (Auto) 4, Eosinophils (%) (Auto) 0, Basophils (%) (Auto) 0, Neutrophils # (Auto) 16.1H, Lymphocytes # (Auto) 0.5L, Monocytes # (Auto) 0.8, Eosinophils # (Auto) 0.0, Basophils # (Auto) 0.0, Immature Granulocyte # (Auto) 1.0H, Sodium Level 138, Potassium Level 4.6, Chloride Level 109H, Carbon Dioxide Level 19L, Anion Gap 10, Blood Urea Nitrogen 50H, Creatinine 1.17, Estimat Glomerular Filtration Rate 52, BUN/Creatinine Ratio 43, Glucose Level 222H, Calcium Level 7.7L, Phosphorus Level 3.5, Magnesium Level 2.5H Microbiology 01/07/21 Blood Culture - Final, Complete Strep agalactiae Group B Assessment/Plan Assessment/Plan Admission Dx severe sepsis lactic acidosis metabolic acidosis Assessment and Plan admitted 01/07/21 Patient admitted for severe sepsis - she was started on broad spectrum antibiotics (vancomycin, zosyn) and fluid bolused. Given her sedentary lifestyle over last month risk for PE, DVT is high- she was given 1x dose of 200mg lovenox. V/Q scan ordered, lower ext U/S ordered. Echo ordered. -ordered 1x dose of bicarb IV to help with her metabolic acidosis - she is responding appropriately with increased respiratory rate. -slowed her IVF down to 100cc/hr. 1x dose of lasix 40mg IV x1 with good urine output. 01/08/21- improvement- lactic acid now 2. Cr improving. Pt is yelling out in pain but it does not appear to be pain - more of a delirium attributed to her sepsis and likely underlying mood disorder. -no DVT seen in legs- starting lovenox dvt ppx. awaiting V/Q scan. Echo 55-65% LVEF. -may be able to d/c vancomycin tomorrow if cultures remain GBS. 01/09/21- d/c vancomycin. Creatinine went up. awaiting final culture results. BNP still elevated- will start [id number] iv daily. Monitor Cr. transfused 1 unit pRBC. V/Q scan negative. 01/10/21- creatinine still elevated- will change dvt ppx to heparin from lovenox. de-escalating antibiotics. starting iv iron infusions for her fe anemia. Down to 1-2L oxygen via nasal cannula. Transfer to [facility]. Discharge planning. Xray obtained does not show any fractures of her shoulder. PT to work with patient and see how she is doing as she reported she could not ambulate on admission. 01/11/21- Nursing and PT concerned about something neurologic underlying. I agree, will try to transfer patient with neurology inpatient services. Her physical decline has progressed over the last month and she has reported she has not been able to walk this last week; prior to this she was using a walker. Her feet and legs hurt which contributed to her decrease in ability to walk as well as her body habitus. [facility] and [facility] declined patient for transfer. 01/12/21- evaluating patient for possible neurological etiology (MS) as she had internuclear ophthalmoplegia, and her weakness noted by nursing and PT, change in speech. Ordered MRI brain and lumbar puncture- looking for lesions on MRI and oligoclonal bands in spinal tap. If finding suggestive of MS will start steroids (800mg prednisone orally is cheapest for 5 days). Will likely need to get Cr down <1.5 before MRI can be done- stopped lasix today and ordered 1L LR bolus. will recheck Cr at 2pm -discussed with this AM (because he was not happy with how things were going) - I discussed with him their wishes from admission were to keep cost as low as possible as they are self pay. The cost is now not as big of a concern to him at this time. Also since she came in with septicemia, acute respiratory failure and kidney failure- we needed to get these addressed prior to further workup. -checked on patient this afternoon- said Miryam has made a 180 turn for the better and he would like to hold off and transferring her out. She is able to feed herself. Unable to get the MRI due to patient not fitting in MRI machine. Awaiting lumbar puncture results. D/c IVFs as she is eating better. Creatinine trending down. 01/15/21- did not improve over weekend- WBC still trending up but her steroid dosage was increased 01/13/21- will monitor. Keeping in mind trying to transfer in [facility] system; will keep this conversation open with as he thought about it but since she was improving on 01/12/21 he wanted her to stay at [facility]. Still awaiting LP result. Treating like she has MS. alondraemdomonique 20units and SSI to try and counter steroids hyperglycemia effect. -IV pulled out - will need to get another PICC line. 01/16/21- PICC line placed today. blood sugars still elevated- increased levemir to 30 units qhs- may need to do BID. WBC trending down. Cr better. Will go ahead and do methylprednisolone 250mg [id number] and see if she has any improvement. -Need to get her up and walking and then she can go home. IV antibiotics until Friday. 01/17/21- Cr much improved. Hgb holding steady with Fe infusions. Stopped IV methylpred. Starting prednisone taper 01/18/21. Added AM levemir for elevated blood sugars. Stopped ancef- will do ceftriaxone 1g daily IV . Stop date 01/21/21. Discharge planning- right now what is stopping us is her mobility and cost. Via [facility] for rehab? 01/18/21- still awaiting LP results- should be back tomorrow or Friday. PT to continue working with patient because she could go home if she was walking/able to take care of herself. Kidneys at baseline. Fe infusions are helping with her Fe def anemia 01/19/21- Cr back to below baseline. Stopped repeat CBC, BMP, phos. No need to check daily. She was having increased pain yesterday likely in part to PT. Fentanyl patch applied. Still waiting on LP oligoclonal band results. will fi raad rocephin and steroids 01/21/21. Will need to decrease her insulin if blood sugars start to trend down. Prognosis: guarded- difficult medical case with renal,cardiac,diabetes,autoimmune,neuro. Discharge to home when patient is up and walking. Problems: (1) Type 2 diabetes mellitus with hyperglycemia Assessment & Plan: SSI Hga1c 7.9 (2) Chronic kidney disease Qualifiers: Assessment & Plan: baseline Cr 1.3 to 1.5 (3) Compensated metabolic acidosis (4) Diastolic CHF Qualifiers: Qualified Codes: I50.33 - Acute on chronic diastolic (congestive) heart failure (5) HTN (hypertension) Qualifiers: Qualified Codes: I10 - Essential (primary) hypertension (6) Panniculitis Assessment & Plan: improving (7) Acute on chronic diastolic (congestive) heart failure (8) Acute on chronic renal failure (9) Obesity hypoventilation syndrome (10) Sepsis due to group B Streptococcus Qualifiers: Admission Dx severe sepsis lactic acidosis metabolic acidosis Clinical Quality Measures Admission Status Admission Dx severe sepsis lactic acidosis metabolic acidosis CHAZ ADLER MD Jan 19, 2021 08:02
[2021-01-19] MEDS: meTOproloL SUCCINATE 50 MG (TOPROL XL) TAB PO SCH ×2 (08:17→20:31)
[2021-01-19] MEDS: MICONAZOLE 2% POWDER (DESENEX AF) 90 GM TOP SCH ×2 (08:18→20:33)
--- NOTE | 2021-01-19 09:54 | Physical Therapy Daily Note ---
PT Daily Note-Current Subjective Patient is in bed and very lethargic. Reluctantly agrees to PT. Mental Status Patient Orientation: Normal For Age Transfers SCALE: Activities may be completed with or without assistive devices. 7-Kkgohyksaw-ahciifz completes the activity by him/herself with no assistance from a helper. 5-Set-up or Clean-up Assistance-helper sets up or cleans up; patient completes activity. [place] assists only prior to or following the activity. 4-Supervision or Touching Assistance-helper provides verbal cues and/or touching/steadying and/or contact guard assistance as patient completes activity. Assistance may be provided throughout the activity or intermittently. 3-Partial/Moderate Assistance-helper does LESS THAN HALF the effort. [place] lifts, holds or supports trunk or limbs, but provides less than half the effort. 2-Substantial/Maximal Assistance-helper does MORE THAN HALF the effort. [place] lifts or holds trunk or limbs and provides more than half the effort. 6-Zbeytxgrv-kuogze does ALL the effort. Patient does none of the effort to complete the activity. Or, the assistance of 2 or more helpers is required for the patient to complete the activity. If activity was not attempted, code reason: 7-Patient Refused. 9-Not Applicable-not attempted and the patient did not perform the activity before the current illness, exacerbation or injury. 10-Not Attempted due to Environmental Limitations-(lack of equipment, weather restraints, etc.). 88-Not Attempted due to Medical Conditions or Safety Concerns. Roll Left & Right (QC): 2 Chair/Mrx-pv-Apndb Xfer(QC): 1 (Katrin lift) Exercises Supine Ex: Ankle pumps, Heel Slides Supine Reps: 15 (AAROM bilateral LE) Seated Therapy Exercises: Long arc quads Seated Reps: 15 Assessment Patient improved with rolling on this date with PT placing Katrin sling under patient and nursing to assist for safety bed to recliner transfer. Patient sitting upright in chair with breakfast in situ. PT Marketing Operations Analyst Goals Marketing Operations Analyst Goals PT Halfway Goals Time Frame: Jan 17, 2021 Roll Left & Right (QC): 3 Sit to Lying (QC): 3 Lying-Sitting on Side/Bed(QC): 3 Sit to Stand (QC): 2 Chair/Tba-ac-Rkids Xfer(QC): 2 PT Plan Treatment/Plan Treatment Plan: Continue Plan of Care Treatment Plan: Bed Mobility, Education, Functional Activity Juliana, Functional Strength, Gait, Safety, Therapeutic Exercise, Transfers Treatment Duration: Jan 17, 2021 Frequency: 6 times per week Estimated Hrs Per Day: .25 hour per day Patient and/or Family Agrees t: Yes Time/GCodes Time In: 907 Time Out: 918 Total Billed Treatment Time: 11 Total Billed Treatment 1 visit FA 11 min DIPIKA ZHANG PT Jan 19, 2021 09:54
[2021-01-19] MEDS: cefTRIAXone 1,000 MG in WATER (STERILE) FOR INJECTION 10 ML IV SCH (17:32)
[2021-01-20] MEDS: HYDROcodone/APAP 5 MG/325 MG (LORTAB) TAB PO PRN ×4 (03:07→22:36)
[2021-01-20 05:59] LABS: CHLORIDE 111 MMOL/L (98-107); POTASSIUM 4.6 MMOL/L (3.6-5.0); SODIUM 140 MMOL/L (135-145)
[2021-01-20 06:01] LABS: CALCIUM 7.8 MG/DL (8.5-10.1); GLUCOSE 157 MG/DL (70-105)
[2021-01-20 06:02] LABS: CARBON DIOXIDE 19 MMOL/L (21-32)
[2021-01-20 06:05] LABS: CREATININE SERUM 0.86 MG/DL (0.60-1.30); GFR ESTIMATED > 60
[2021-01-20 06:06] LABS: BUN/CREATININE RATIO 45
[2021-01-20 06:07] LABS: MAGNESIUM 2.4 MG/DL (1.6-2.4)
[2021-01-20] MEDS: POTASSIUM CL 10MEQ/50ML IVPB 50 ML IV SCH (06:39)
[2021-01-20] MEDS: MAGNESIUM 1 GM/100 ML IVPB 100 ML IV SCH (06:39)
[2021-01-20] MEDS: inSUlin ASPART (NovoLOG) 1 UNIT/0.01 ML (CHARGE PER UNIT) SC SCH ×4 (06:40→20:31)
[2021-01-20] MEDS: KCL 20 MEQ TAB (K-DUR) PO SCH (06:40)
[2021-01-20] MEDS ORDERED: predniSONE 20 MG TAB PO NR (08:00)
[2021-01-20] MEDS: meTOproloL SUCCINATE 50 MG (TOPROL XL) TAB PO SCH ×2 (09:02→20:31)
[2021-01-20] MEDS: MICONAZOLE 2% POWDER (DESENEX AF) 90 GM TOP SCH ×2 (09:03→20:31)
--- NOTE | 2021-01-20 09:18 | Progress Note ---
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 PT HAS SEVERE WEAKNESS, WITH INABILITY TO AMBULATE Review of Systems General: No Chills, No Night Sweats HEENT: No Head Aches, No Visual Changes Pulmonary: No Dyspnea Cardiovascular: No: Chest Pain, Palpitations Gastrointestinal: No: Nausea, Vomiting, Abdominal Pain Genitourinary: No Dysuria Musculoskeletal: neck pain, shoulder pain, arm pain, back pain, leg pain, foot pain Neurological: Weakness Objective Exam Vital Signs Vital Signs - First Documented 01/14/21 00:16 Temp 35.2 Pulse 96 Resp 20 B/P (MAP) 150/99 (116) Pulse Ox 98 O2 Delivery Room Air Capillary Refill : Less Than 3 Seconds General Appearance: Mild Distress, Other (pain with movement) Eyes: Bilateral Eye Normal Inspection, Bilateral Eye PERRL HEENT: PERRL/EOMI Neck: Non Tender, Supple Respiratory: Lungs Clear Cardiovascular: Regular Rate, Rhythm Gastrointestinal: Non Tender, Soft, Other Rectal: Deferred Back: Normal Inspection Extremity: Non Tender, No Calf Tenderness, Pedal Edema Neurologic/Psychiatric: Other Skin: Warm/Dry, Mottled Lymphatic: No Adenopathy Results Lab Laboratory Tests 01/19/21 12:03: Glucometer 218H 01/19/21 15:36: Glucometer 294H 01/19/21 20:20: Glucometer 269H 01/20/21 05:36: Sodium Level 140, Potassium Level 4.6, Chloride Level 111H, Carbon Dioxide Level 19L, Anion Gap 10, Blood Urea Nitrogen 39H, Creatinine 0.86, Estimat Glomerular Filtration Rate > 60, BUN/Creatinine Ratio 45, Glucose Level 157H, Calcium Level 7.8L, Magnesium Level 2.4 Microbiology 01/07/21 Blood Culture - Final, Complete Strep agalactiae Group B Assessment/Plan Assessment/Plan Assessment and Plan DIABETES MELLITUS CHRONIC RENAL DISEASE DIASTOLIC CONGESTIVE HEART FAILURE HYPERTENSION WEAKNESS, GAIT INSTABILITY SUSPECT RAPIDLY PROGRESSIVE MULTIPLE SCLEROSIS DIABETES MELLITUS - CONTINUE WITH CURRENT REGIMEN CHRONIC RENAL DISEASE - STABLE - CONTINUE WITH CURRENT MANAGEMENT - FLUIDS DIASTOLIC CONGESTIVE HEART FAILURE - HYPERTENSION - CONTINUE CURRENT REGIMEN SUSPECT RAPIDLY PROGRESSIVE MULTIPLE SCLEROSIS WEAKNESS, GAIT INSTABILITY - PT HAD MULTIPLE RESTRICTION BANDS - THE LAB WAS UNABLE TO DEFINE IF THEY WERE GAMMAGLOBULINS OF SYSTEMIC OR INTRACEREBRAL ORIGIN. -PER LAB INTERPRETATION THE DIFFERENTIAL DX SHOULD INCLUDE SCLEROSING PANENCEPHALITIS, INFLAM POLYNEUROPAHTY, METAL RECLAMATION KETTLE TENDER LUPUS, BRAIN TUMOR OR INFARCTION - PT REPORTS TRAVEL TO [place] IN DECEMBER FOR VACATION AND WEAKNESS STARTED IN DECEMBER. - WILL CHECK WEST-NILE PANEL WILL ALSO CHECK TICK BORN PANEL Problems: (1) Type 2 diabetes mellitus with hyperglycemia Assessment & Plan: SSI Hga1c 7.9 (2) Chronic kidney disease Qualifiers: Assessment & Plan: baseline Cr 1.3 to 1.5 (3) Compensated metabolic acidosis (4) Diastolic CHF Qualifiers: Qualified Codes: I50.33 - Acute on chronic diastolic (congestive) heart failure (5) HTN (hypertension) Qualifiers: Qualified Codes: I10 - Essential (primary) hypertension (6) Panniculitis Assessment & Plan: improving (7) Acute on chronic diastolic (congestive) heart failure (8) Acute on chronic renal failure (9) Obesity hypoventilation syndrome (10) Sepsis due to group B Streptococcus Qualifiers: RYAN CARBAJAL MD Jan 20, 2021 09:18
[2021-01-20] MEDS: DOXYCYCLINE INJECTION 100 MG in NS (IVPB) 100 ML IV SCH ×2 (11:28→22:21)
[2021-01-20] MEDS: VALACYCLOVIR 500 MG TAB (VALTREX) PO SCH ×2 (11:28→20:31)
--- NOTE | 2021-01-20 13:24 | Physical Therapy Daily Note ---
PT Daily Note-Current Subjective Pt was very interested in getting up to take a shower. Mental Status Patient Orientation: Person, Place, Time, Situation Attachments: Hernandez Catheter Transfers SCALE: Activities may be completed with or without assistive devices. 2-Uofahjgunw-cdifngs completes the activity by him/herself with no assistance from a helper. 5-Set-up or Clean-up Assistance-helper sets up or cleans up; patient completes activity. [place] assists only prior to or following the activity. 4-Supervision or Touching Assistance-helper provides verbal cues and/or touching/steadying and/or contact guard assistance as patient completes activity. Assistance may be provided throughout the activity or intermittently. 3-Partial/Moderate Assistance-helper does LESS THAN HALF the effort. [place] lifts, holds or supports trunk or limbs, but provides less than half the effort. 2-Substantial/Maximal Assistance-helper does MORE THAN HALF the effort. [place] lifts or holds trunk or limbs and provides more than half the effort. 0-Lanqjzeiw-uuviag does ALL the effort. Patient does none of the effort to complete the activity. Or, the assistance of 2 or more helpers is required for the patient to complete the activity. If activity was not attempted, code reason: 7-Patient Refused. 9-Not Applicable-not attempted and the patient did not perform the activity before the current illness, exacerbation or injury. 10-Not Attempted due to Environmental Limitations-(lack of equipment, weather restraints, etc.). 88-Not Attempted due to Medical Conditions or Safety Concerns. Roll Left & Right (QC): 2 Pt is a katrin lift to and from the bed and chair. Gait Training Does the Patient Walk?: No and Walking Goal IS indicated Exercises Supine Ex: LE Protocol Supine Reps: 10 Treatments Katrin lift from the bed to the shower chair. Returned to the bed with the Katrin lift after showering. Nursing performed the showering tasks. Assessment Current Status: Poor Progress Pt is unable to assist with any aspect of the bed mobility or transfers. She required total assist for the LE ROM. PT Securities Analyst Goals Securities Analyst Goals PT Alf Goals Time Frame: Jan 17, 2021 Roll Left & Right (QC): 3 Sit to Lying (QC): 3 Lying-Sitting on Side/Bed(QC): 3 Sit to Stand (QC): 2 Chair/Jay-pg-Tbdzv Xfer(QC): 2 PT Plan Treatment/Plan Treatment Plan: Continue Plan of Care Treatment Plan: Bed Mobility, Education, Functional Activity Juliana, Functional Strength, Gait, Safety, Therapeutic Exercise, Transfers Treatment Duration: Jan 17, 2021 Frequency: 6 times per week Estimated Hrs Per Day: .25 hour per day Patient and/or Family Agrees t: Yes Time/GCodes Time In: 904 Time Out: 929 Total Billed Treatment Time: 25 Total Billed Treatment 1, fa x2 (25) RASHAD ECHOLS PT Jan 20, 2021 13:24
[2021-01-20] MEDS: cefTRIAXone 1,000 MG in WATER (STERILE) FOR INJECTION 10 ML IV SCH (18:26)
[2021-01-21] MEDS: ONDANSETRON 4 MG/2 ML (SDV) Z0FRAN IV PRN ×2 (02:31→08:10)
[2021-01-21 06:33] LABS: CHLORIDE 111 MMOL/L (98-107); POTASSIUM 4.8 MMOL/L (3.6-5.0); SODIUM 139 MMOL/L (135-145)
[2021-01-21 06:35] LABS: CALCIUM 7.8 MG/DL (8.5-10.1); GLUCOSE 141 MG/DL (70-105)
[2021-01-21 06:36] LABS: CARBON DIOXIDE 20 MMOL/L (21-32)
[2021-01-21] MEDS: inSUlin ASPART (NovoLOG) 1 UNIT/0.01 ML (CHARGE PER UNIT) SC SCH ×4 (06:37→20:37)
[2021-01-21] MEDS: KCL 20 MEQ TAB (K-DUR) PO SCH (06:37)
[2021-01-21] MEDS: POTASSIUM CL 10MEQ/50ML IVPB 50 ML IV SCH (06:37)
[2021-01-21 06:39] LABS: CREATININE SERUM 1.02 MG/DL (0.60-1.30); GFR ESTIMATED > 60
[2021-01-21 06:40] LABS: BUN/CREATININE RATIO 35
[2021-01-21 06:41] LABS: MAGNESIUM 2.2 MG/DL (1.6-2.4)
[2021-01-21] MEDS: MAGNESIUM 1 GM/100 ML IVPB 100 ML IV SCH (06:43)
[2021-01-21] MEDS: HYDROcodone/APAP 5 MG/325 MG (LORTAB) TAB PO PRN ×3 (07:54→22:54)
--- NOTE | 2021-01-21 09:27 | Progress Note ---
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 PT HAS SEVERE WEAKNESS, WITH INABILITY TO AMBULATE. SHE REPORTS THAT SHE IS FEELING A LITTLE BETTER TODAY COMPARED TO YESTERDAY SHE DENIES ABDOMINAL PAIN, NAUSEA. Review of Systems General: No Chills, No Night Sweats HEENT: No Head Aches, No Visual Changes Pulmonary: No Dyspnea Cardiovascular: No: Chest Pain, Palpitations Gastrointestinal: No: Nausea, Vomiting, Abdominal Pain Genitourinary: No Dysuria Musculoskeletal: neck pain, shoulder pain, arm pain, back pain, leg pain, foot pain Neurological: Weakness, Change in speech (SLURRED SPEECH) Objective Exam Vital Signs Vital Signs - First Documented 01/15/21 03:48 Temp 36.3 Pulse 88 Resp 18 B/P (MAP) 153/89 (110) Pulse Ox 94 O2 Delivery Room Air Capillary Refill : Less Than 3 Seconds General Appearance: Mild Distress, Other (pain with movement) Eyes: Bilateral Eye Normal Inspection, Bilateral Eye PERRL HEENT: PERRL/EOMI Neck: Non Tender, Supple Respiratory: Lungs Clear Cardiovascular: Regular Rate, Rhythm Gastrointestinal: Non Tender, Soft, Other Rectal: Deferred Back: Normal Inspection Extremity: Non Tender, No Calf Tenderness, Pedal Edema Neurologic/Psychiatric: Other Skin: Warm/Dry, Mottled Lymphatic: No Adenopathy Results Lab Laboratory Tests 01/20/21 10:44: Glucometer 155H 01/20/21 13:42: 01/20/21 16:12: Glucometer 190H 01/20/21 20:09: Glucometer 217H 01/21/21 06:00: Sodium Level 139, Potassium Level 4.8, Chloride Level 111H, Carbon Dioxide Level 20L, Anion Gap 8, Blood Urea Nitrogen 36H, Creatinine 1.02, Estimat Glomerular Filtration Rate > 60, BUN/Creatinine Ratio 35, Glucose Level 141H, Calcium Level 7.8L, Magnesium Level 2.2 Microbiology 01/07/21 Blood Culture - Final, Complete Strep agalactiae Group B Assessment/Plan Assessment/Plan Assessment and Plan DIABETES MELLITUS CHRONIC RENAL DISEASE DIASTOLIC CONGESTIVE HEART FAILURE HYPERTENSION WEAKNESS, GAIT INSTABILITY SUSPECT RAPIDLY PROGRESSIVE MULTIPLE SCLEROSIS DIABETES MELLITUS - CONTINUE WITH CURRENT REGIMEN CHRONIC RENAL DISEASE - STABLE - CONTINUE WITH CURRENT MANAGEMENT - FLUIDS DIASTOLIC CONGESTIVE HEART FAILURE - HYPERTENSION - CONTINUE CURRENT REGIMEN SUSPECT RAPIDLY PROGRESSIVE MULTIPLE SCLEROSIS WEAKNESS, GAIT INSTABILITY - PT HAD MULTIPLE RESTRICTION BANDS - THE LAB WAS UNABLE TO DEFINE IF THEY WERE GAMMAGLOBULINS OF SYSTEMIC OR INTRACEREBRAL ORIGIN. -PER LAB INTERPRETATION THE DIFFERENTIAL DX SHOULD INCLUDE SCLEROSING PANENCEPHALITIS, INFLAM POLYNEUROPAHTY, MAIL CALLER LUPUS, BRAIN TUMOR OR INFARCTION - PT REPORTS TRAVEL TO [place] IN DECEMBER FOR VACATION AND WEAKNESS STARTED IN DECEMBER. - WILL CHECK WEST-NILE PANEL WILL ALSO CHECK TICK BORN PANEL - BOTH STILL PENDING OF 01/21/2021 - ADDED DOXYCYCLINE 100MG BID IV X 3 DAYS THEN CHANGE TO ORAL DEPENDING ON TICK PANEL. - ADDED VALACYCLOVIR - PT HAS HX OF ORAL HERPES. Problems: (1) Type 2 diabetes mellitus with hyperglycemia Assessment & Plan: SSI Hga1c 7.9 (2) Chronic kidney disease Qualifiers: Assessment & Plan: baseline Cr 1.3 to 1.5 (3) Compensated metabolic acidosis (4) Diastolic CHF Qualifiers: Qualified Codes: I50.33 - Acute on chronic diastolic (congestive) heart failure (5) HTN (hypertension) Qualifiers: Qualified Codes: I10 - Essential (primary) hypertension (6) Panniculitis Assessment & Plan: improving (7) Acute on chronic diastolic (congestive) heart failure (8) Acute on chronic renal failure (9) Obesity hypoventilation syndrome (10) Sepsis due to group B Streptococcus Qualifiers: RYAN CARBAJAL MD Jan 21, 2021 09:26
[2021-01-21] MEDS: meTOproloL SUCCINATE 50 MG (TOPROL XL) TAB PO SCH ×2 (09:30→20:43)
[2021-01-21] MEDS: VALACYCLOVIR 500 MG TAB (VALTREX) PO SCH ×2 (09:31→20:43)
[2021-01-21] MEDS: MICONAZOLE 2% POWDER (DESENEX AF) 90 GM TOP SCH ×2 (09:31→20:43)
[2021-01-21 09:32] LABS: HEMATOCRIT 29 % (35-52); MEAN CORPUSCULAR HEMOGLOBIN 23 pg (25-34); MEAN CORPUSCULAR HGB CONC 27 g/dL (32-36); MEAN CORPUSCULAR VOLUME 83 fL (80-99); MEAN PLATELET VOLUME 11.3 fL (9.0-12.2); PLATELET COUNT 372 10^3/uL (130-400); WHITE BLOOD COUNT 12.5 10^3/uL (4.3-11.0)
[2021-01-21] MEDS: DOXYCYCLINE INJECTION 100 MG in NS (IVPB) 100 ML IV SCH ×2 (11:15→21:19)
[2021-01-21] MEDS: fentaNYL PATCH 25 MCG (DURAGESIC) TD SCH (14:36)
[2021-01-21] MEDS: FENTANYL PATCH REMOVAL TP SCH (14:38)
[2021-01-21] MEDS ORDERED: predniSONE 10 MG TAB PO NR (18:00)
[2021-01-21] MEDS: cefTRIAXone 1,000 MG in WATER (STERILE) FOR INJECTION 10 ML IV SCH (18:02)
[2021-01-22] MEDS: inSUlin ASPART (NovoLOG) 1 UNIT/0.01 ML (CHARGE PER UNIT) SC SCH ×4 (05:43→21:06)
[2021-01-22 06:08] LABS: HEMATOCRIT 27 % (35-52); HEMOGLOBIN 7.6 g/dL (11.5-16.0); MEAN CORPUSCULAR HEMOGLOBIN 23 pg (25-34); MEAN CORPUSCULAR HGB CONC 28 g/dL (32-36); MEAN CORPUSCULAR VOLUME 83 fL (80-99); PLATELET COUNT 351 10^3/uL (130-400); WHITE BLOOD COUNT 10.8 10^3/uL (4.3-11.0)
[2021-01-22 06:20] LABS: CHLORIDE 111 MMOL/L (98-107); POTASSIUM 4.9 MMOL/L (3.6-5.0); SODIUM 141 MMOL/L (135-145)
[2021-01-22] MEDS: POTASSIUM CL 10MEQ/50ML IVPB 50 ML IV SCH (06:21)
[2021-01-22] MEDS: KCL 20 MEQ TAB (K-DUR) PO SCH (06:21)
[2021-01-22 06:22] LABS: CALCIUM 8.1 MG/DL (8.5-10.1); GLUCOSE 140 MG/DL (70-105)
[2021-01-22 06:23] LABS: CARBON DIOXIDE 20 MMOL/L (21-32)
[2021-01-22 06:26] LABS: GFR ESTIMATED > 60
[2021-01-22 06:27] LABS: BUN/CREATININE RATIO 31
[2021-01-22] MEDS: MAGNESIUM 1 GM/100 ML IVPB 100 ML IV SCH (06:29)
[2021-01-22] MEDS: VALACYCLOVIR 500 MG TAB (VALTREX) PO SCH ×2 (09:12→21:04)
[2021-01-22] MEDS: meTOproloL SUCCINATE 50 MG (TOPROL XL) TAB PO SCH ×2 (09:12→21:04)
[2021-01-22] MEDS: HYDROcodone/APAP 5 MG/325 MG (LORTAB) TAB PO PRN ×2 (09:13→17:18)
[2021-01-22] MEDS: MICONAZOLE 2% POWDER (DESENEX AF) 90 GM TOP SCH ×2 (09:15→21:04)
--- NOTE | 2021-01-22 09:23 | Diagnostic Imaging Report ---
PROCEDURE: US NONOB transvaginal. TECHNIQUE: Multiple real-time grayscale images were obtained of the pelvis in various projections endovaginally. INDICATION: Vaginal bleeding. Study is significantly compromised due to patient large body habitus. Uterus appears to be retroflexed measuring approximate 5.8 x 2.6 cm. The endometrium was not well visualized. No discrete myometrial mass is identified. Ovaries cannot be visualized. No definite adnexal mass or free fluid is seen. IMPRESSION: Significantly limited study, as described above. No gross abnormality is detected. Dictated by: Dictated on workstation # [id number]
--- NOTE | 2021-01-22 10:15 | Physical Therapy Daily Note ---
PT Daily Note-Current Subjective Patient agrees to PT. She reports she is emotional and wants to go home. Mental Status Patient Orientation: Normal For Age Transfers SCALE: Activities may be completed with or without assistive devices. 6-Ymyznboeks-xqoxtry completes the activity by him/herself with no assistance from a helper. 5-Set-up or Clean-up Assistance-helper sets up or cleans up; patient completes activity. [place] assists only prior to or following the activity. 4-Supervision or Touching Assistance-helper provides verbal cues and/or touching/steadying and/or contact guard assistance as patient completes activity. Assistance may be provided throughout the activity or intermittently. 3-Partial/Moderate Assistance-helper does LESS THAN HALF the effort. [place] lifts, holds or supports trunk or limbs, but provides less than half the effort. 2-Substantial/Maximal Assistance-helper does MORE THAN HALF the effort. [place] lifts or holds trunk or limbs and provides more than half the effort. 2-Unwvadyyb-etcbaf does ALL the effort. Patient does none of the effort to complete the activity. Or, the assistance of 2 or more helpers is required for the patient to complete the activity. If activity was not attempted, code reason: 7-Patient Refused. 9-Not Applicable-not attempted and the patient did not perform the activity before the current illness, exacerbation or injury. 10-Not Attempted due to Environmental Limitations-(lack of equipment, weather restraints, etc.). 88-Not Attempted due to Medical Conditions or Safety Concerns. Roll Left & Right (QC): 2 Sit to Lying (QC): 2 Lying to Sitting/Side of Bed(Q: 2 sat EOB x 10 min performing exercises Exercises Seated Therapy Exercises: Ankle pumps, Long arc quads, Reaching activity Seated Reps: 12 (2 sets) Treatments Bed change to another frame and air mattress to allow patient to perform EOB activities safely. Katrin Lift used to perform this task. Assessment Improving slowly. Patient states her goal is to stand and transfer to her w/c so she can go home. Spouse to bring w/c in tomorrow. PT will attempt this in a.m. PT Account Support Specialist Goals Mcfp Goals PT Account Support Specialist Goals Time Frame: Feb 03, 2021 Roll Left & Right (QC): 3 Sit to Lying (QC): 3 Lying-Sitting on Side/Bed(QC): 3 Sit to Stand (QC): 2 Chair/Tsa-rp-Fwygn Xfer(QC): 2 PT Plan Treatment/Plan Treatment Plan: Continue Plan of Care Treatment Plan: Bed Mobility, Education, Functional Activity Juliana, Functional Strength, Gait, Safety, Therapeutic Exercise, Transfers Treatment Duration: Feb 03, 2021 Frequency: 6 times per week Estimated Hrs Per Day: .25 hour per day Patient and/or Family Agrees t: Yes Time/GCodes Time In: 915 Time Out: 945 Total Billed Treatment Time: 30 Total Billed Treatment 1 visit FA x 2 30 min DIPIKA ZHANG PT Jan 22, 2021 10:15
--- NOTE | 2021-01-22 13:26 | Progress Note ---
Subjective Subjective Date Seen by Provider: Jan 22, 2021 Time Seen by Provider: 13:24 She was having increased pain yesterday likely in part to PT. Fentanyl patch applied which has helped. Patient and had no new questions this AM. Review of Systems General: No Chills, No Night Sweats HEENT: No Head Aches, No Visual Changes Pulmonary: No Dyspnea Cardiovascular: No: Chest Pain, Palpitations Gastrointestinal: No: Nausea, Vomiting, Abdominal Pain Genitourinary: No Dysuria Musculoskeletal: neck pain, shoulder pain, arm pain, back pain, leg pain, foot pain Neurological: Weakness, Change in speech (SLURRED SPEECH) Objective Exam Vital Signs Vital Signs Date Time Temp Pulse Resp B/P (MAP) Pulse Ox O2 Delivery O2 Flow Rate FiO2 01/22/21 11:16 36.6 96 20 152/100 (117) 96 Room Air 01/22/21 07:25 35.8 99 22 155/95 (115) 93 Room Air 01/22/21 03:16 36.3 96 16 129/85 (100) 94 Room Air 01/21/21 23:47 36.0 72 20 130/81 (97) 94 Room Air 01/21/21 20:14 Room Air 01/21/21 20:00 36.7 104 22 129/83 (98) 96 Room Air 01/21/21 16:00 36.6 107 20 131/80 (97) 97 Room Air I & O 01/22/21 07:00 Intake Total 1470 ml Output Total 1225 ml Balance 245 ml General Appearance: Mild Distress, Other (pain with movement) Eyes: Bilateral Eye Normal Inspection, Bilateral Eye PERRL HEENT: PERRL/EOMI Neck: Non Tender, Supple Respiratory: Lungs Clear Cardiovascular: Regular Rate, Rhythm Gastrointestinal: Non Tender, Soft, Other Rectal: Deferred Back: Normal Inspection Extremity: Non Tender, No Calf Tenderness, Pedal Edema Neurologic/Psychiatric: Other Skin: Warm/Dry, Mottled Lymphatic: No Adenopathy Results Lab Laboratory Tests 01/21/21 16:28: Glucometer 108 01/21/21 20:28: Glucometer 171H 01/22/21 05:39: Glucometer 127H 01/22/21 05:41: White Blood Count 10.8, Red Blood Count 3.32L, Hemoglobin 7.6L, Hematocrit 27L, Mean Corpuscular Volume 83, Mean Corpuscular Hemoglobin 23L, Mean Corpuscular Hemoglobin Concent 28L, Red Cell Distribution Width 27.9H, Platelet Count 351, Mean Platelet Volume 11.0, Sodium Level 141, Potassium Level 4.9, Chloride Level 111H, Carbon Dioxide Level 20L, Anion Gap 10, Blood Urea Nitrogen 28H, Cr eatinine 0.90, Estimat Glomerular Filtration Rate > 60, BUN/Creatinine Ratio 31, Glucose Level 140H, Calcium Level 8.1L, Magnesium Level 2.0 01/22/21 11:11: Glucometer 103 Microbiology 01/07/21 Blood Culture - Final, Complete Strep agalactiae Group B Assessment/Plan Assessment/Plan Admission Dx severe sepsis lactic acidosis metabolic acidosis Assessment and Plan admitted 01/07/21 Patient admitted for severe sepsis - she was started on broad spectrum antibiot ics (vancomycin, zosyn) and fluid bolused. Given her sedentary lifestyle over last month risk for PE, DVT is high- she was given 1x dose of 200mg lovenox. V/Q scan ordered, lower ext U/S ordered. Echo ordered. -ordered 1x dose of bicarb IV to help with her metabolic acidosis - she is responding appropriately with increased respiratory rate. -slowed her IVF down to 100cc/hr. 1x dose of lasix 40mg IV x1 with good urine output. 01/08/21- improvement- lactic acid now 2. Cr improving. Pt is yelling out in pain but it does not appear to be pain - more of a delirium attributed to her sepsis and likely underlying mood disorder. -no DVT seen in legs- starting lovenox dvt ppx. awaiting V/Q scan. Echo 55-65% LVEF. -may be able to d/c vancomycin tomorrow if cultures remain GBS. 01/09/21- d/c vancomycin. Creatinine went up. awaiting final culture results. BNP still elevated- will start [id number] iv daily. Monitor Cr. transfused 1 unit pRBC. V/Q scan negative. 01/10/21- creatinine still elevated- will change dvt ppx to heparin from lovenox. de-escalating antibiotics. starting iv iron infusions for her fe anemia. Down to 1-2L oxygen via nasal cannula. Transfer to [facility]. Discharge planning. Xray obtained does not show any fractures of her shoulder. PT to work with patient and see how she is doing as she reported she could not ambulate on admission. 01/11/21- Nursing and PT concerned about something neurologic underlying. I agree, will try to transfer patient with neurology inpatient services. Her physical decline has progressed over the last month and she has reported she has not been able to walk this last week; prior to this she was using a walker. Her feet and legs hurt which contributed to her decrease in ability to walk as well as her body habitus. Ilene and [facility] declined patient for transfer. 01/12/21- evaluating patient for possible neurological etiology (MS) as she had internuclear ophthalmoplegia, and her weakness noted by nursing and PT, change in speech. Ordered MRI brain and lumbar puncture- looking for lesions on MRI and oligoclonal bands in spinal tap. If finding suggestive of MS will start steroids (800mg prednisone orally is cheapest for 5 days). Will likely need to get Cr down <1.5 before MRI can be done- stopped lasix today and ordered 1L LR bolus. will recheck Cr at 2pm -discussed with this AM (because he was not happy with how things were going) - I discussed with him their wishes from admission were to keep cost as low as possible as they are self pay. The cost is now not as big of a concern to him at this time. Also since she came in with septicemia, acute respiratory failure and kidney failure- we needed to get these addressed prior to further workup. -checked on patient this afternoon- said Miryam has made a 180 turn for the better and he would like to hold off and transferring her out. She is able to feed herself. Unable to get the MRI due to patient not fitting in MRI machine. Awaiting lumbar puncture results. D/c IVFs as she is eating better. Creatinine trending down. 01/15/21- did not improve over weekend- WBC still trending up but her steroid dosage was increased 01/13/21- will monitor. Keeping in mind trying to transfer in [facility] system; will keep this conversation open with as he thought about it but since she was improving on 01/12/21 he wanted her to stay at [facility]. Still awaiting LP result. Treating like she has MS. maddie 20units and SSI to try and counter steroids hyperglycemia effect. -IV pulled out - will need to get another PICC line. 01/16/21- PICC line placed today. blood sugars still elevated- increased levemir to 30 units qhs- may need to do BID. WBC trending down. Cr better. Will go ahead and do methylprednisolone 250mg [id number] and see if she has any improvement. -Need to get her up and walking and then she can go home. IV antibiotics until Friday. 01/17/21- Cr much improved. Hgb holding steady with Fe infusions. Stopped IV methylpred. Starting prednisone taper 01/18/21. Added AM levemir for elevated blood sugars. Stopped ancef- will do ceftriaxone 1g daily IV . Stop date 01/21/21. Discharge planning- right now what is stopping us is her mobility and cost. Via [facility] for rehab? 01/18/21- still awaiting LP results- should be back tomorrow or Friday. PT to continue working with patient because she could go home if she was walking/able to take care of herself. Kidneys at baseline. Fe infusions are helping with her Fe def anemia 01/19/21- Cr back to below baseline. Stopped repeat CBC, BMP, phos. No need to check daily. She was having increased pain yesterday likely in part to PT. Fentanyl patch applied. Still waiting on LP oligoclonal band results. will finish rocephin and steroids 01/21/21. Will need to decrease her insulin if blood sugars start to trend down. 01/22/21- awaiting tickborne labs. changed doxycycline to PO as IV access was lost again. Stopped blood draws for now as her hgb has dropped due to daily blood draws. Patient hopeful to go home tomorrow. Prognosis: guarded- difficult medical case with renal,cardiac,diabetes,autoimmune,neuro. Discharge to home when patient is up and walking. Problems: (1) Type 2 diabetes mellitus with hyperglycemia Assessment & Plan: SSI Hga1c 7.9 (2) Chronic kidney disease Qualifiers: Assessment & Plan: baseline Cr 1.3 to 1.5 (3) Compensated metabolic acidosis (4) Diastolic CHF Qualifiers: Qualified Codes: I50.33 - Acute on chronic diastolic (congestive) heart failure (5) HTN (hypertension) Qualifiers: Qualified Codes: I10 - Essential (primary) hypertension (6) Panniculitis Assessment & Plan: improving (7) Acute on chronic diastolic (congestive) heart failure (8) Acute on chronic renal failure (9) Obesity hypoventilation syndrome (10) Sepsis due to group B Streptococcus Qualifiers: Admission Dx severe sepsis lactic acidosis metabolic acidosis Clinical Quality Measures Admission Status Admission Dx severe sepsis lactic acidosis metabolic acidosis CHAZ ADLER MD Jan 22, 2021 13:26
[2021-01-22] MEDS: DOXYCYCLINE INJECTION 100 MG in NS (IVPB) 100 ML IV SCH (13:28)
[2021-01-22] MEDS: DOXYCYCLINE 100 MG (VIBRAMYCIN) TABLET PO SCH (17:15)
[2021-01-23] MEDS: HYDROcodone/APAP 5 MG/325 MG (LORTAB) TAB PO PRN ×3 (05:21→20:01)
[2021-01-23] MEDS: inSUlin ASPART (NovoLOG) 1 UNIT/0.01 ML (CHARGE PER UNIT) SC SCH ×4 (06:21→20:10)
[2021-01-23] MEDS: DOXYCYCLINE 100 MG (VIBRAMYCIN) TABLET PO SCH ×2 (06:45→16:42)
--- NOTE | 2021-01-23 07:09 | Progress Note ---
Subjective Subjective Date Seen by Provider: Jan 23, 2021 Time Seen by Provider: 07:08 blood sugars are running better Patient wants to go home and plans to go home. would like PT blessing for her to go home (meaning that PT says she is ready to go). Review of Systems General: No Chills, No Night Sweats HEENT: No Head Aches, No Visual Changes Pulmonary: No Dyspnea Cardiovascular: No: Chest Pain, Palpitations Gastrointestinal: No: Nausea, Vomiting, Abdominal Pain Genitourinary: No Dysuria Musculoskeletal: neck pain, shoulder pain, arm pain, back pain, leg pain, foot pain Neurological: Weakness, Change in speech Objective Exam Vital Signs Vital Signs Date Time Temp Pulse Resp B/P (MAP) Pulse Ox O2 Delivery O2 Flow Rate FiO2 01/23/21 04:20 37.0 118 24 157/99 (118) 93 Room Air 01/22/21 23:45 37.6 122 26 149/94 (112) 95 Room Air 01/22/21 20:00 97 Room Air 0.00 01/22/21 20:00 36.4 121 18 120/79 (93) 97 Room Air 01/22/21 16:00 36.4 117 20 113/75 (88) 96 Room Air 01/22/21 11:16 36.6 96 20 152/100 (117) 96 Room Air 01/22/21 08:45 Room Air 01/22/21 07:25 35.8 99 22 155/95 (115) 93 Room Air I & O 01/23/21 07:00 Intake Total 980 ml Output Total 1425 ml Balance -445 ml General Appearance: Mild Distress, Other Eyes: Bilateral Eye Normal Inspection, Bilateral Eye PERRL HEENT: PERRL/EOMI Neck: Non Tender, Supple Respiratory: Lungs Clear Cardiovascular: Regular Rate, Rhythm Gastrointestinal: Non Tender, Soft, Other Rectal: Deferred Back: Normal Inspection Extremity: Non Tender, No Calf Tenderness, Pedal Edema Neurologic/Psychiatric: Other Skin: Warm/Dry, Mottled Lymphatic: No Adenopathy Results Lab Laboratory Tests 01/22/21 11:11: Glucometer 103 01/22/21 16:59: Glucometer 118H 01/22/21 20:53: Glucometer 156H 01/23/21 05:52: Glucometer 88 Microbiology 01/07/21 Blood Culture - Final, Complete Strep agalactiae Group B Assessment/Plan Assessment/Plan Admission Dx severe sepsis lactic acidosis metabolic acidosis Assessment and Plan admitted 01/07/21 Patient admitted for severe sepsis - she was started on broad spectrum antibiotics (vancomycin, zosyn) and fluid bolused. Given her sedentary lifestyle over last month risk for PE, DVT is high- she was given 1x dose of 200mg lovenox. V/Q scan ordered, lower ext U/S ordered. Echo ordered. -ordered 1x dose of bicarb IV to help with her metabolic acidosis - she is responding appropriately with increased respiratory rate. -slowed her IVF down to 100cc/hr. 1x dose of lasix 40mg IV x1 with good urine output. 01/08/21- improvement- lactic acid now 2. Cr improving. Pt is yelling out in pain but it does not appear to be pain - more of a delirium attributed to her sepsis and likely underlying mood disorder. -no DVT seen in legs- starting lovenox dvt ppx. awaiting V/Q scan. Echo 55-65% LVEF. -may be able to d/c vancomycin tomorrow if cultures remain GBS. 01/09/21- d/c vancomycin. Creatinine went up. awaiting final culture results. BNP still elevated- will start [id number] iv daily. Monitor Cr. transfused 1 unit pRBC. V/Q scan negative. 01/10/21- creatinine still elevated- will change dvt ppx to heparin from lovenox. de-escalating antibiotics. starting iv iron infusions for her fe anemia. Down to 1-2L oxygen via nasal cannula. Transfer to [facility]. Discharge planning. Xray obtained does not show any fractures of her shoulder. PT to work with patient and see how she is doing as she reported she could not ambulate on admission. 01/11/21- Nursing and PT concerned about something neurologic underlying. I agree, will try to transfer patient with neurology inpatient services. Her physical decline has progressed over the last month and she has reported she has not been able to walk this last week; prior to this she was using a walker. Her feet and legs hurt which contributed to her decrease in ability to walk as well as her body habitus. [facility] and [facility] declined patient for transfer. 01/12/21- evaluating patient for possible neurological etiology (MS) as she had internuclear ophthalmoplegia, and her weakness noted by nursing and PT, change in speech. Ordered MRI brain and lumbar puncture- looking for lesions on MRI and oligoclonal bands in spinal tap. If finding suggestive of MS will start steroids (800mg prednisone orally is cheapest for 5 days). Will likely need to get Cr down <1.5 before MRI can be done- stopped lasix today and ordered 1L LR bolus. will recheck Cr at 2pm -discussed with this AM (because he was not happy with how things were going) - I discussed with him their wishes from admission were to keep cost as low as possible as they are self pay. The cost is now not as big of a concern to him at this time. Also since she came in with septicemia, acute respiratory failure and kidney failure- we needed to get these addressed prior to further workup. -checked on patient this afternoon- said Miryam has made a 180 turn for the better and he would like to hold off and transferring her out. She is able to feed herself. Unable to get the MRI due to patient not fitting in MRI machine. Awaiting lumbar puncture results. D/c IVFs as she is eating better. Creatinine trending down. 01/15/21- did not improve over weekend- WBC still trending up but her steroid dosage was increased 01/13/21- will monitor. Keeping in mind trying to transfer in [facility] system; will keep this conversation open with as he thought about it but since she was improving on 01/12/21 he wanted her to stay at [facility]. Still awaiting LP result. Treating like she has MS. levemir 20units and SSI to try and counter steroids hyperglycemia effect. -IV pulled out - will need to get another PICC line. 01/16/21- PICC line placed today. blood sugars still elevated- increased le vemir to 30 units qhs- may need to do BID. WBC trending down. Cr better. Will go ahead and do methylprednisolone 250mg [id number] and see if she has any improvement. -Need to get her up and walking and then she can go home. IV antibiotics until Friday. 01/17/21- Cr much improved. Hgb holding steady with Fe infusions. Stopped IV methylpred. Starting prednisone taper 01/18/21. Added AM levemir for elevated blood sugars. Stopped ancef- will do ceftriaxone 1g daily IV . Stop date 01/21/21. Discharge planning- right now what is stopping us is her mobility and cost. Via [facility] for rehab? 01/18/21- still awaiting LP results- should be back tomorrow or Friday. PT to continue working with patient because she could go home if she was walking/able to take care of herself. Kidneys at baseline. Fe infusions are helping with her Fe def anemia 01/19/21- Cr back to below baseline. Stopped repeat CBC, BMP, phos. No need to check daily. She was having increased pain yesterday likely in part to PT. Fentanyl patch applied. Still waiting on LP oligoclonal band results. will finish rocephin and steroids 01/21/21. Will need to decrease her insulin if blood sugars start to trend down. 01/22/21- awaiting tickborne labs. changed doxycycline to PO as IV access was lost again. Stopped blood draws for now as her hgb has dropped due to daily blood draws. Patient hopeful to go home tomorrow. 01/23/21- blood sugars are better since we have finished steroids- stopped AM levemir. Starting trazodone tonight to help her sleep. Work with PT- may go home today if is okay with all the help she needs. Right now she seems to require too much assistance. PT is going to try and get her in the wheelchair. Prognosis: guarded- difficult medical case with renal,cardiac,diabetes,autoimmune,neuro. Discharge to home when patient is up and walking. Problems: (1) Type 2 diabetes mellitus with hyperglycemia Assessment & Plan: SSI Hga1c 7.9 (2) Chronic kidney disease Qualifiers: Assessment & Plan: baseline Cr 1.3 to 1.5 (3) Compensated metabolic acidosis (4) Diastolic CHF Qualifiers: Qualified Codes: I50.33 - Acute on chronic diastolic (congestive) heart failure (5) HTN (hypertension) Qualifiers: Qualified Codes: I10 - Essential (primary) hypertension (6) Panniculitis Assessment & Plan: improving (7) Acute on chronic diastolic (congestive) heart failure (8) Acute on chronic renal failure (9) Obesity hypoventilation syndrome (10) Sepsis due to group B Streptococcus Qualifiers: Admission Dx severe sepsis lactic acidosis metabolic acidosis Clinical Quality Measures Admission Status Admission Dx severe sepsis lactic acidosis metabolic acidosis CHAZ ADLER MD 13, 2021 07:09
[2021-01-23] MEDS: KCL 20 MEQ TAB (K-DUR) PO SCH (08:09)
[2021-01-23] MEDS: MICONAZOLE 2% POWDER (DESENEX AF) 90 GM TOP SCH ×2 (08:31→21:00)
[2021-01-23] MEDS: VALACYCLOVIR 500 MG TAB (VALTREX) PO SCH ×2 (08:31→20:01)
[2021-01-23] MEDS: meTOproloL SUCCINATE 50 MG (TOPROL XL) TAB PO SCH ×2 (08:31→20:00)
--- NOTE | 2021-01-23 11:13 | Physical Therapy Daily Note ---
PT Daily Note-Current Subjective Patient agrees to PT. Very delayed with verbal responses. Mental Status Patient Orientation: Normal For Age Attachments: Hernandez Catheter Transfers SCALE: Activities may be completed with or without assistive devices. 5-Gulojqnjyj-rjoobgu completes the activity by him/herself with no assistance from a helper. 5-Set-up or Clean-up Assistance-helper sets up or cleans up; patient completes activity. Hiller assists only prior to or following the activity. 4-Supervision or Touching Assistance-helper provides verbal cues and/or touching/steadying and/or contact guard assistance as patient completes activit y. Assistance may be provided throughout the activity or intermittently. 3-Partial/Moderate Assistance-helper does LESS THAN HALF the effort. Hiller lifts, holds or supports trunk or limbs, but provides less than half the effort. 2-Substantial/Maximal Assistance-helper does MORE THAN HALF the effort. Hiller lifts or holds trunk or limbs and provides more than half the effort. 0-Iywzlgaqb-evekcs does ALL the effort. Patient does none of the effort to complete the activity. Or, the assistance of 2 or more helpers is required for the patient to complete the activity. If activity was not attempted, code reason: 7-Patient Refused. 9-Not Applicable-not attempted and the patient did not perform the activity before the current illness, exacerbation or injury. 10-Not Attempted due to Environmental Limitations-(lack of equipment, weather restraints, etc.). 88-Not Attempted due to Medical Conditions or Safety Concerns. Sit to Lying (QC): 1 Lying to Sitting/Side of Bed(Q: 1 Chair/Vui-sl-Ixzps Xfer(QC): 1 Attempted to perform sit to stand to FWW, however, patient unable to perform. Katrin transfer bed to w/c. Exercises Seated Therapy Exercises: Ankle pumps, Long arc quads Seated Reps: 15 (2 sets) Treatments patient sat EOB x 15 min prior to Katrin Lift transfer Assessment Patient tolerated treatment, however, unable to perform sit to stand transfer. PT Screw Machine Operator Goals Assisted Goals PT Assisted Goals Time Frame: Feb 03, 2021 Roll Left & Right (QC): 3 Sit to Lying (QC): 3 Lying-Sitting on Side/Bed(QC): 3 Sit to Stand (QC): 2 Chair/Ytd-yy-Rjpjh Xfer(QC): 2 PT Plan Treatment/Plan Treatment Plan: Continue Plan of Care Treatment Plan: Bed Mobility, Education, Functional Activity Juliana, Functional Strength, Gait, Safety, Therapeutic Exercise, Transfers Treatment Duration: Feb 03, 2021 Frequency: 6 times per week Estimated Hrs Per Day: .25 hour per day Patient and/or Family Agrees t: Yes Time/GCodes Time In: 1007 Time Out: 1034 Total Billed Treatment Time: 27 Total Billed Treatment 1 visit FA x 2 27 min DIPIKA ZHANG PT Jan 23, 2021 11:13
--- NOTE | 2021-01-23 14:32 | Diagnostic Imaging Report ---
INDICATION: Shortness of breath. COMPARISON: 01/08/2021. TECHNIQUE: Single frontal radiograph of the chest dated 01/23/2021. FINDINGS: The cardiac silhouette is significantly enlarged, appearing similar to the prior examination. Mild central pulmonary vascular congestion. Patchy predominately interstitial opacities are noted within the right lung. No large volume pleural effusion. No pneumothorax. No acute osseous abnormality. IMPRESSION: Persistent cardiomegaly with central pulmonary vascular congestion. Developing infiltrate versus edema within the right lung. No large-volume pleural effusion. Dictated by: Dictated on workstation # [id number]
--- NOTE | 2021-01-23 15:44 | Wound Care Assessment ---
Wound Care Assessment Date Seen by Provider: Jan 23, 2021 Time Seen by Provider: 11:15 Chief Complaint Bilateral lower extremity ulcers. HPI The patient is a 40 year old female with bilateral lower extremity blisters and ulcerations secondary to lymphedema, cellulitis, and obesity. There is a large amount of pus draining from the L foot wound. The dressing for this wound is changed to silver alginate to address the drainage. The patient is encouraged to elevate her legs. Culture and antibiotics as per attending. Smoking Status: Never a Smoker Recreational Drug Use: No Alcohol Use: Denies Use Review of Systems Musculoskeletal: leg pain Exam Vital Signs Date Time Temp Pulse Resp B/P (MAP) Pulse Ox O2 Delivery O2 Flow Rate FiO2 01/23/21 13:59 118 30 99 40.00 01/23/21 12:00 36.6 136/83 (100) Room Air Capillary Refill : Less Than 3 Seconds Extremities: other (Multiple lower extremity ulcers.) Results Laboratory Tests 01/22/21 16:59: Glucometer 118H 01/22/21 20:53: Glucometer 156H 01/23/21 05:52: Glucometer 88 01/23/21 10:54: Glucometer 147H Microbiology 01/07/21 Blood Culture - Final, Complete Strep agalactiae Group B Assessment/Plan/Dx 1. Bilateral lower extremity ulcers. 2. Lymphedema. 3. Morbid obesity. Plan: continue same dressing, except as above. Consider arterial evaluation when clinically stable. VICKIE RAM MD Jan 23, 2021 15:44
[2021-01-23 17:21] VITALS: BP 153/108
[2021-01-23] MEDS ORDERED: RT-ALBUTEROL/IPRATROPIUM 3 ML (DUONEB) VIAL INH PRN (17:30)
[2021-01-23] MEDS ORDERED: FUROSEMIDE 40 MG/4 ML INJ (LASIX) IM NR (17:45)
[2021-01-23] MEDS: traZODone 100 MG (DESYREL) TAB PO SCH (20:01)
[2021-01-23] MEDS: RT-ALBUTEROL/IPRATROPIUM 3 ML (DUONEB) VIAL INH SCH (21:35)
[2021-01-24] MEDS: RT-ALBUTEROL/IPRATROPIUM 3 ML (DUONEB) VIAL INH SCH ×5 (02:06→22:10)
[2021-01-24] MEDS: inSUlin ASPART (NovoLOG) 1 UNIT/0.01 ML (CHARGE PER UNIT) SC SCH ×4 (06:21→21:56)
[2021-01-24] MEDS: KCL 20 MEQ TAB (K-DUR) PO SCH (06:26)
[2021-01-24] MEDS: DOXYCYCLINE 100 MG (VIBRAMYCIN) TABLET PO SCH ×2 (06:26→16:14)
[2021-01-24] MEDS: meTOproloL SUCCINATE 50 MG (TOPROL XL) TAB PO SCH ×2 (08:22→20:48)
[2021-01-24] MEDS: VALACYCLOVIR 500 MG TAB (VALTREX) PO SCH ×2 (08:22→20:46)
[2021-01-24] MEDS: ONDANSETRON 4 MG/2 ML (SDV) Z0FRAN IV PRN (08:22)
[2021-01-24] MEDS: MICONAZOLE 2% POWDER (DESENEX AF) 90 GM TOP SCH ×2 (08:27→20:48)
[2021-01-24] MEDS ORDERED: ONDANSETRON 4 MG (ZOFRAN) ORAL DISSOLVE TAB PO PRN (08:30)
--- NOTE | 2021-01-24 11:59 | Physical Therapy Daily Note ---
PT Daily Note-Current Subjective Patient reports increase anxiety. Incontinent BM. Mental Status Patient Orientation: Person, Time, Situation Attachments: Oxygen Transfers SCALE: Activities may be completed with or without assistive devices. 6-Dpalbblrez-ystgllk completes the activity by him/herself with no assistance from a helper. 5-Set-up or Clean-up Assistance-helper sets up or cleans up; patient completes activity. [place] assists only prior to or following the activity. 4-Supervision or Touching Assistance-helper provides verbal cues and/or touching/steadying and/or contact guard assistance as patient completes activity. Assistance may be provided throughout the activity or intermittently. 3-Partial/Moderate Assistance-helper does LESS THAN HALF the effort. [place] lifts, holds or supports trunk or limbs, but provides less than half the effort. 2-Substantial/Maximal Assistance-helper does MORE THAN HALF the effort. [place] lifts or holds trunk or limbs and provides more than half the effort. 0-Wetyrrbio-gycvoz does ALL the effort. Patient does none of the effort to complete the activity. Or, the assistance of 2 or more helpers is required for the patient to complete the activity. If activity was not attempted, code reason: 7-Patient Refused. 9-Not Applicable-not attempted and the patient did not perform the activity before the current illness, exacerbation or injury. 10-Not Attempted due to Environmental Limitations-(lack of equipment, weather restraints, etc.). 88-Not Attempted due to Medical Conditions or Safety Concerns. Roll Left & Right (QC): 1 (x 2) rolling x 6 sets to allow complete bed change and cleansing due to BM incontinence Exercises Supine Ex: Ankle pumps, Heel Slides Supine Reps: 12 (AAROM) Assessment Patient to exhausted to sit EOB. Patient tolerated the activity of rolling. PT Cnc Lathe Machinist Goals Cnc Lathe Machinist Goals PT [facility] Goals Time Frame: Feb 03, 2021 Roll Left & Right (QC): 3 Sit to Lying (QC): 3 Lying-Sitting on Side/Bed(QC): 3 Sit to Stand (QC): 2 Chair/Pbt-al-Zuwnj Xfer(QC): 2 PT Plan Treatment/Plan Treatment Plan: Continue Plan of Care Treatment Plan: Bed Mobility, Education, Functional Activity Juliana, Functional Strength, Gait, Safety, Therapeutic Exercise, Transfers Treatment Duration: Feb 03, 2021 Frequency: 6 times per week Estimated Hrs Per Day: .25 hour per day Patient and/or Family Agrees t: Yes Time/GCodes Time In: 1125 Time Out: 1150 Total Billed Treatment Time: 25 Total Billed Treatment 1 visit FA x 2 25 min DIPIKA ZHANG PT Jan 24, 2021 11:59
[2021-01-24 13:31] VITALS: BP 169/106
[2021-01-24] MEDS ORDERED: RT-ALBUTEROL/IPRATROPIUM 3 ML (DUONEB) VIAL INH PRN (16:00)
[2021-01-24] MEDS: FENTANYL PATCH REMOVAL TP SCH (16:13)
[2021-01-24] MEDS: fentaNYL PATCH 25 MCG (DURAGESIC) TD SCH (16:13)
--- NOTE | 2021-01-24 16:43 | Progress Note ---
Subjective Subjective Date Seen by Provider: Jan 24, 2021 Time Seen by Provider: 07:20 She had an episode of trouble breathing yesterday and had some panic. BiPAP was put on and hours later she was reduced back to RA. Today she has a little bit of anxious. We will try sertraline 25mg. She does not feel it is anxiety only. She is having seesaw breathing. Review of Systems General: No Chills, No Night Sweats HEENT: No Head Aches, No Visual Changes Pulmonary: No Dyspnea Cardiovascular: No: Chest Pain, Palpitations Gastrointestinal: No: Nausea, Vomiting, Abdominal Pain Genitourinary: No Dysuria Musculoskeletal: leg pain Neurological: Weakness, Change in speech Objective Exam Vital Signs Vital Signs Date Time Temp Pulse Resp B/P (MAP) Pulse Ox O2 Delivery O2 Flow Rate FiO2 01/24/21 16:13 36.9 121 18 141/89 (106) 100 Room Air 01/24/21 15:55 95 Room Air 2.00 01/24/21 14:45 132/85 (101) 01/24/21 13:31 36.6 118 93 28 01/24/21 13:15 93 Room Air 2.00 01/24/21 12:23 36.6 113 22 169/106 (127) 98 Nasal Cannula 2.00 01/24/21 09:05 92 Room Air 2.00 01/24/21 09:04 86 Room Air 01/24/21 08:10 36.6 118 24 136/84 (101) 91 Room Air 01/24/21 08:00 Nasal Cannula 2.00 01/24/21 04:17 36.0 122 20 126/83 (97) 93 Room Air 01/24/21 02:06 94 Room Air 2.00 01/24/21 00:09 36.4 122 18 156/88 (110) 94 Room Air 01/23/21 21:36 91 Nasal Cannula 2.00 01/23/21 20:00 36.1 111 22 151/95 (113) 93 Nasal Cannula 2.00 01/23/21 20:00 97 Nasal Cannula 2.00 01/23/21 17:21 36.4 107 100 I & O 01/24/21 07:00 Intake Total 1287 ml Output Total 2250 ml Balance -963 ml General Appearance: Mild Distress, Other (pain with movement) Eyes: Bilateral Eye Normal Inspection, Bilateral Eye PERRL HEENT: PERRL/EOMI Neck: Non Tender, Supple Respiratory: Lungs Clear Cardiovascular: Regular Rate, Rhythm Gastrointestinal: Non Tender, Soft, Other Rectal: Deferred Back: Normal Inspection Extremity: Non Tender, No Calf Tenderness, Pedal Edema Neurologic/Psychiatric: Other Skin: Warm/Dry, Mottled Lymphatic: No Adenopathy Results Lab Laboratory Tests 01/23/21 20:09: Glucometer 148H 01/23/21 20:30: Glucometer 157H 01/24/21 05:08: Glucometer 178H 01/24/21 10:57: Glucometer 190H 01/24/21 15:24: Glucometer 196H Microbiology 01/22/21 Gram Stain - Final, Resulted 01/22/21 Wound Culture - Preliminary, Resulted No growth 01/07/21 Blood Culture - Final, Complete Strep agalactiae Group B Assessment/Plan Assessment/Plan Admission Dx severe sepsis lactic acidosis metabolic acidosis Assessment and Plan admitted 01/07/21 Patient admitted for severe sepsis - she was started on broad spectrum antibiotics (vancomycin, zosyn) and fluid bolused. Given her sedentary lifestyle over last month risk for PE, DVT is high- she was given 1x dose of 200mg lovenox. V/Q scan ordered, lower ext U/S ordered. Echo ordered. -ordered 1x dose of bicarb IV to help with her metabolic acidosis - she is responding appropriately with increased respiratory rate. -slowed her IVF down to 100cc/hr. 1x dose of lasix 40mg IV x1 with good urine output. 01/08/21- improvement- lactic acid now 2. Cr improving. Pt is yelling out in pain but it does not appear to be pain - more of a delirium attributed to her sepsis and likely underlying mood disorder. -no DVT seen in legs- starting lovenox dvt ppx. awaiting V/Q scan. Echo 55-65% LVEF. -may be able to d/c vancomycin tomorrow if cultures remain GBS. 01/09/21- d/c vancomycin. Creatinine went up. awaiting final culture results. BNP still elevated- will start [id number] iv daily. Monitor Cr. transfused 1 unit pRBC. V/Q scan negative. 01/10/21- creatinine still elevated- will change dvt ppx to heparin from lovenox. de-escalating antibiotics. starting iv iron infusions for her fe anemia. Down to 1-2L oxygen via nasal cannula. Transfer to [facility]. Discharge planning. Xray obtained does not show any fractures of her shoulder. PT to work with patient and see how she is doing as she reported she could not ambulate on admission. 01/11/21- Nursing and PT concerned about something neurologic underlying. I agree, will try to transfer patient with neurology inpatient services. Her physical decline has progressed over the last month and she has reported she has not been able to walk this last week; prior to this she was using a walker. Her feet and legs hurt which contributed to her decrease in ability to walk as well as her body habitus. Ilene and [facility] declined patient for transfer. 01/12/21- evaluating patient for possible neurological etiology (MS) as she had internuclear ophthalmoplegia, and her weakness noted by nursing and PT, change in speech. Ordered MRI brain and lumbar puncture- looking for lesions on MRI and oligoclonal bands in spinal tap. If finding suggestive of MS will start steroids (800mg prednisone orally is cheapest for 5 days). Will likely need to get Cr down <1.5 before MRI can be done- stopped lasix today and ordered 1L LR bolus. will recheck Cr at 2pm -discussed with this AM (because he was not happy with how things were going) - I discussed with him their wishes from admission were to keep cost as low as possible as they are self pay. The cost is now not as big of a concern to him at this time. Also since she came in with septicemia, acute respiratory failure and kidney failure- we needed to get these addressed prior to further workup. -checked on patient this afternoon- said Miryam has made a 180 turn for the better and he would like to hold off and transferring her out. She is able to feed herself. Unable to get the MRI due to patient not fitting in MRI machine. Awaiting lumbar puncture results. D/c IVFs as she is eating better. Creatinine trending down. 01/15/21- did not improve over weekend- WBC still trending up but her steroid dosage was increased 01/13/21- will monitor. Keeping in mind trying to transfer in [facility] system; will keep this conversation open with as he thought about it but since she was improving on 01/12/21 he wanted her to stay at [facility]. Still awaiting LP result. Treating like she has MS. levemir 20units and SSI to try and counter steroids hyperglycemia effect. -IV pulled out - will need to get another PICC line. 01/16/21- PICC line placed today. blood sugars still elevated- increased levemir to 30 units qhs- may need to do BID. WBC trending down. Cr better. Will go ahead and do methylprednisolone 250mg [id number] and see if she has any improvement. -Need to get her up and walking and then she can go home. IV antibiotics until Friday. 01/17/21- Cr much improved. Hgb holding steady with Fe infusions. Stopped IV methylpred. Starting prednisone taper 01/18/21. Added AM levemir for elevated blood sugars. Stopped ancef- will do ceftriaxone 1g daily IV . Stop date 01/21/21. Discharge planning- right now what is stopping us is her mobility and cost. Via [facility] for rehab? 01/18/21- still awaiting LP results- should be back tomorrow or Friday. PT to continue working with patient because she could go home if she was walking/able to take care of herself. Kidneys at baseline. Fe infusions are helping with her Fe def anemia 01/19/21- Cr back to below baseline. Stopped repeat CBC, BMP, phos. No need to check daily. She was having increased pain yesterday likely in part to PT. Fentanyl patch applied. Still waiting on LP oligoclonal band results. will finish rocephin and steroids 01/21/21. Will need to decrease her insulin if blood sugars start to trend down. 01/22/21- awaiting tickborne labs. changed doxycycline to PO as IV access was lost again. Stopped blood draws for now as her hgb has dropped due to daily blood draws. Patient hopeful to go home tomorrow. 01/23/21- blood sugars are better since we have finished steroids- stopped AM levemir. Starting trazodone tonight to help her sleep. Work with PT- may go home today if is okay with all the help she needs. Right now she seems to require too much assistance. PT is going to try and get her in the [facility]. 01/24/21- added sertraline 25mg to see if it helps with her anxiety. If she continues to have trouble breathing though we will need to obtain a CTA of chest- as she has been bed bound for 2 weeks and could have a PE. Heparin was restarted yesterday. She is on room air this AM. But when she had a breathing episode/panic- she was placed on BiPAP. Still working on getting her home. She was positive for Ehrlichiosis IgM 1:20- and currently on doxycycline. Prognosis: guarded- difficult medical case with renal,cardiac,diabetes,autoimmune,neuro. Discharge to home when patient is up and walking. Problems: (1) Positive serology for Erlichiosis (2) Type 2 diabetes mellitus with hyperglycemia Assessment & Plan: SSI Hga1c 7.9 (3) Chronic kidney disease Qualifiers: Assessment & Plan: baseline Cr 1.3 to 1.5 (4) Diastolic CHF Qualifiers: Qualified Codes: I50.32 - Chronic diastolic (congestive) heart failure (5) HTN (hypertension) Qualifiers: Qualified Codes: I10 - Essential (primary) hypertension (6) Obesity hypoventilation syndrome Admission Dx severe sepsis lactic acidosis metabolic acidosis Clinical Quality Measures Admission Status Admission Dx severe sepsis lactic acidosis metabolic acidosis CHAZ ADLER MD Jan 24, 2021 16:43
[2021-01-24] MEDS: HYDROcodone/APAP 5 MG/325 MG (LORTAB) TAB PO PRN (20:46)
[2021-01-24] MEDS: SERTRALINE 50 MG (ZOLOFT) TABLET PO SCH (20:47)
[2021-01-24] MEDS: traZODone 100 MG (DESYREL) TAB PO SCH (20:47)
[2021-01-25] MEDS: RT-ALBUTEROL/IPRATROPIUM 3 ML (DUONEB) VIAL INH SCH ×6 (01:49→21:45)
[2021-01-25] MEDS: inSUlin ASPART (NovoLOG) 1 UNIT/0.01 ML (CHARGE PER UNIT) SC SCH ×4 (05:28→21:00)
[2021-01-25] MEDS: DOXYCYCLINE 100 MG (VIBRAMYCIN) TABLET PO SCH ×2 (06:38→17:19)
[2021-01-25] MEDS: VALACYCLOVIR 500 MG TAB (VALTREX) PO SCH ×2 (09:13→20:24)
[2021-01-25] MEDS: meTOproloL SUCCINATE 50 MG (TOPROL XL) TAB PO SCH ×2 (09:13→20:24)
[2021-01-25] MEDS: MICONAZOLE 2% POWDER (DESENEX AF) 90 GM TOP SCH ×2 (09:14→21:13)
[2021-01-25] MEDS: HYDROcodone/APAP 5 MG/325 MG (LORTAB) TAB PO PRN ×2 (09:14→22:11)
[2021-01-25 09:26] LABS: BUN/CREATININE RATIO 17; CALCIUM 8.6 MG/DL (8.5-10.1); CARBON DIOXIDE 20 MMOL/L (21-32); CHLORIDE 109 MMOL/L (98-107); CREATININE SERUM 0.83 MG/DL (0.60-1.30); GFR ESTIMATED > 60; GLUCOSE 128 MG/DL (70-105); POTASSIUM 4.5 MMOL/L (3.6-5.0); SODIUM 140 MMOL/L (135-145)
[2021-01-25] MEDS: KCL 20 MEQ TAB (K-DUR) PO SCH (09:35)
--- NOTE | 2021-01-25 10:45 | Physical Therapy Daily Note ---
PT Daily Note-Current Subjective Patient agrees to PT. Mental Status Patient Orientation: Person, Time, Situation Transfers SCALE: Activities may be completed with or without assistive devices. 0-Sxsibttktg-miaxxbs completes the activity by him/herself with no assistance from a helper. 5-Set-up or Clean-up Assistance-helper sets up or cleans up; patient completes activity. [place] assists only prior to or following the activity. 4-Supervision or Touching Assistance-helper provides verbal cues and/or touching/steadying and/or contact guard assistance as patient completes activity. Assistance may be provided throughout the activity or intermittently. 3-Partial/Moderate Assistance-helper does LESS THAN HALF the effort. [place] lifts, holds or supports trunk or limbs, but provides less than half the effort. 2-Substantial/Maximal Assistance-helper does MORE THAN HALF the effort. [place] lifts or holds trunk or limbs and provides more than half the effort. 4-Poiuquewm-gkspmx does ALL the effort. Patient does none of the effort to c omplete the activity. Or, the assistance of 2 or more helpers is required for the patient to complete the activity. If activity was not attempted, code reason: 7-Patient Refused. 9-Not Applicable-not attempted and the patient did not perform the activity before the current illness, exacerbation or injury. 10-Not Attempted due to Environmental Limitations-(lack of equipment, weather restraints, etc.). 88-Not Attempted due to Medical Conditions or Safety Concerns. Sit to Lying (QC): 1 (x 2) Lying to Sitting/Side of Bed(Q: 1 (x 2) Chair/Zxt-al-Qlzte Xfer(QC): 1 (x 2 Katrin Lift) Patient sat EOB x 10 min Exercises Supine Ex: Ankle pumps, Heel Slides Supine Reps: 12 (AAROM) Seated Therapy Exercises: Ankle pumps, Long arc quads Seated Reps: 12 (AAROM x 2) Assessment right LE limited movement requiring AAROM; Katrin Lift for transfers due to patient inability to perform sit to stand PT Dancing Master Goals Assisted Goals PT Assisted Goals Time Frame: Feb 03, 2021 Roll Left & Right (QC): 3 Sit to Lying (QC): 3 Lying-Sitting on Side/Bed(QC): 3 Sit to Stand (QC): 2 Chair/Lkf-pz-Oobct Xfer(QC): 2 PT Plan Treatment/Plan Treatment Plan: Continue Plan of Care Treatment Plan: Bed Mobility, Education, Functional Activity Juliana, Functional Strength, Gait, Safety, Therapeutic Exercise, Transfers Treatment Duration: Feb 03, 2021 Frequency: 6 times per week Estimated Hrs Per Day: .25 hour per day Patient and/or Family Agrees t: Yes Time/GCodes Time In: 935 Time Out: 958 Total Billed Treatment Time: 23 Total Billed Treatment 1 visit EX 10 min FA 13 min DIPIKA ZHANG PT Jan 25, 2021 10:45
[2021-01-25] MEDS: traZODone 100 MG (DESYREL) TAB PO SCH (20:24)
[2021-01-25] MEDS: SERTRALINE 50 MG (ZOLOFT) TABLET PO SCH (20:24)
[2021-01-26] MEDS: RT-ALBUTEROL/IPRATROPIUM 3 ML (DUONEB) VIAL INH SCH ×4 (01:57→15:53)
[2021-01-26] MEDS: KCL 20 MEQ TAB (K-DUR) PO SCH (05:04)
[2021-01-26 05:47] LABS: CHLORIDE 108 MMOL/L (98-107); POTASSIUM 4.5 MMOL/L (3.6-5.0); SODIUM 140 MMOL/L (135-145)
[2021-01-26 05:48] LABS: CALCIUM 8.5 MG/DL (8.5-10.1)
[2021-01-26 05:49] LABS: GLUCOSE 106 MG/DL (70-105)
[2021-01-26 05:50] LABS: CARBON DIOXIDE 20 MMOL/L (21-32)
[2021-01-26 05:53] LABS: BUN/CREATININE RATIO 19; CREATININE SERUM 0.88 MG/DL (0.60-1.30); GFR ESTIMATED > 60
[2021-01-26] MEDS: inSUlin ASPART (NovoLOG) 1 UNIT/0.01 ML (CHARGE PER UNIT) SC SCH ×3 (06:00→16:14)
[2021-01-26] MEDS: DOXYCYCLINE 100 MG (VIBRAMYCIN) TABLET PO SCH ×2 (06:48→16:19)
--- NOTE | 2021-01-26 07:26 | Progress Note ---
Subjective Subjective Date Seen by Provider: Jan 25, 2021 Time Seen by Provider: 10:00 Patient would like to go home. Review of Systems General: No Chills, No Night Sweats HEENT: No Head Aches, No Visual Changes Pulmonary: No Dyspnea Cardiovascular: No: Chest Pain, Palpitations Gastrointestinal: No: Nausea, Vomiting, Abdominal Pain Genitourinary: No Dysuria Musculoskeletal: leg pain Neurological: Weakness, Change in speech Objective Exam Vital Signs Vital Signs Date Time Temp Pulse Resp B/P (MAP) Pulse Ox O2 Delivery O2 Flow Rate FiO2 01/25/21 16:41 36.7 116 24 134/87 (103) 97 Room Air 01/25/21 14:32 90 Room Air 01/25/21 12:01 36.7 119 24 133/90 (104) 93 Room Air 01/25/21 11:14 90 Room Air 01/25/21 09:01 36.7 119 26 116/80 (92) 94 Room Air 01/25/21 08:00 94 Room Air 01/25/21 08:00 36.7 119 26 116/80 (92) 94 Room Air I & O 01/26/21 06:59 Intake Total 1540 ml Output Total 400 ml Balance 1140 ml General Appearance: Mild Distress, Other (pain with movement) Eyes: Bilateral Eye Normal Inspection, Bilateral Eye PERRL HEENT: PERRL/EOMI Neck: Non Tender, Supple Respiratory: Lungs Clear Cardiovascular: Regular Rate, Rhythm Gastrointestinal: Non Tender, Soft, Other Rectal: Deferred Back: Normal Inspection Extremity: Non Tender, No Calf Tenderness, Pedal Edema Neurologic/Psychiatric: Other Skin: Warm/Dry, Mottled Lymphatic: No Adenopathy Results Lab Laboratory Tests 01/25/21 08:20: Sodium Level 140, Potassium Level 4.5, Chloride Level 109H, Carbon Dioxide Level 20L, Anion Gap 11, Blood Urea Nitrogen 14, Creatinine 0.83, Estimat Glomerular Filtration Rate > 60, BUN/Creatinine Ratio 17, Glucose Level 128H, Calcium Level 8.6 01/25/21 10:41: Glucometer 144H 01/25/21 15:41: Glucometer 200H 01/25/21 20:42: Glucometer 144H 01/26/21 05:15: Sodium Level 140, Potassium Level 4.5, Chloride Level 108H, Carbon Dioxide Level 20L, Anion Gap 12, Blood Urea Nitrogen 17, Creatinine 0.88, Estimat Glomerular Filtration Rate > 60, BUN/Creatinine Ratio 19, Glucose Level 106H, Calcium Level 8.5 Microbiology 01/22/21 Gram Stain - Final, Complete 01/22/21 Wound Culture - Final, Complete No growth 01/07/21 Blood Culture - Final, Complete Strep agalactiae Group B Assessment/Plan Assessment/Plan Admission Dx severe sepsis lactic acidosis metabolic acidosis Assessment and Plan admitted 01/07/21 Patient admitted for severe sepsis - she was started on broad spectrum antibiotics (vancomycin, zosyn) and fluid bolused. Given her sedentary lifestyle over last month risk for PE, DVT is high- she was given 1x dose of 200mg lovenox. V/Q scan ordered, lower ext U/S ordered. Echo ordered. -ordered 1x dose of bicarb IV to help with her metabolic acidosis - she is responding appropriately with increased respiratory rate. -slowed her IVF down to 100cc/hr. 1x dose of lasix 40mg IV x1 with good urine output. 01/08/21- improvement- lactic acid now 2. Cr improving. Pt is yelling out in pain but it does not appear to be pain - more of a delirium attributed to her sepsis and likely underlying mood disorder. -no DVT seen in legs- starting lovenox dvt ppx. awaiting V/Q scan. Echo 55-65% LVEF. -may be able to d/c vancomycin tomorrow if cultures remain GBS. 01/09/21- d/c vancomycin. Creatinine went up. awaiting final culture results. BNP still elevated- will start [id number] iv daily. Monitor Cr. transfused 1 unit pRBC. V/Q scan negative. 01/10/21- creatinine still elevated- will change dvt ppx to heparin from lovenox. de-escalating antibiotics. starting iv iron infusions for her fe anemia. Down to 1-2L oxygen via nasal cannula. Transfer to [facility]. Discharge planning. Xray obtained does not show any fractures of her shoulder. PT to work with patient and see how she is doing as she reported she could not ambulate on admission. 01/11/21- Nursing and PT concerned about something neurologic underlying. I agree, will try to transfer patient with neurology inpatient services. Her physical decline has progressed over the last month and she has reported she has not been able to walk this last week; prior to this she was using a walker. Her feet and legs hurt which contributed to her decrease in ability to walk as well as her body habitus. Ilene and [facility] declined patient for transfer. 01/12/21- evaluating patient for possible neurological etiology (MS) as she had internuclear ophthalmoplegia, and her weakness noted by nursing and PT, change in speech. Ordered MRI brain and lumbar puncture- looking for lesions on MRI and oligoclonal bands in spinal tap. If finding suggestive of MS will start steroids (800mg prednisone orally is cheapest for 5 days). Will likely need to get Cr down <1.5 before MRI can be done- stopped lasix today and ordered 1L LR bolus. will recheck Cr at 2pm -discussed with this AM (because he was not happy with how things were going) - I discussed with him their wishes from admission were to keep cost as low as possible as they are self pay. The cost is now not as big of a concern to him at this time. Also since she came in with septicemia, acute respiratory failure and kidney failure- we needed to get these addressed prior to further workup. -checked on patient this afternoon- said Miryam has made a 180 turn for the better and he would like to hold off and transferring her out. She is able to feed herself. Unable to get the MRI due to patient not fitting in MRI machine. Awaiting lumbar puncture results. D/c IVFs as she is eating better. Creatinine trending down. 01/15/21- did not improve over weekend- WBC still trending up but her steroid dosage was increased 01/13/21- will monitor. Keeping in mind trying to transfer in [facility] system; will keep this conversation open with as he thought about it but since she was improving on 01/12/21 he wanted her to stay at [facility]. Still awaiting LP result. Treating like she has MS. levemir 20units and SSI to try and counter steroids hyperglycemia effect. -IV pulled out - will need to get another PICC line. 01/16/21- PICC line placed today. blood sugars still elevated- increased levemir to 30 units qhs- may need to do BID. WBC trending down. Cr better. Will go ahead and do methylprednisolone 250mg p5llain and see if she has any improvement. -Need to get her up and walking and then she can go home. IV antibiotics until Friday. 01/17/21- Cr much improved. Hgb holding steady with Fe infusions. Stopped IV methylpred. Starting prednisone taper 01/18/21. Added AM levemir for elevated blood sugars. Stopped ancef- will do ceftriaxone 1g daily IV . Stop date 01/21/21. Discharge planning- right now what is stopping us is her mobility and cost. Via [facility] for rehab? 01/18/21- still awaiting LP results- should be back tomorrow or Friday. PT to continue working with patient because she could go home if she was walking/able to take care of herself. Kidneys at baseline. Fe infusions are helping with her Fe def anemia 01/19/21- Cr back to below baseline. Stopped repeat CBC, BMP, phos. No need to check daily. She was having increased pain yesterday likely in part to PT. Fentanyl patch applied. Still waiting on LP oligoclonal band results. will finish rocephin and steroids 01/21/21. Will need to decrease her insulin if blood sugars start to trend down. 01/22/21- awaiting tickborne labs. changed doxycycline to PO as IV access was lost again. Stopped blood draws for now as her hgb has dropped due to daily blood draws. Patient hopeful to go home tomorrow. 01/23/21- blood sugars are better since we have finished steroids- stopped AM levemir. Starting trazodone tonight to help her sleep. Work with PT- may go home today if is okay with all the help she needs. Right now she seems to require too much assistance. PT is going to try and get her in the wheelchair. 01/24/21- added sertraline 25mg to see if it helps with her anxiety. If she continues to have trouble breathing though we will need to obtain a CTA of chest- as she has been bed bound for 2 weeks and could have a PE. Heparin was restarted yesterday. She is on room air this AM. But when she had a breathing episode/panic- she was placed on BiPAP. Still working on getting her home. She was positive for Ehrlichiosis IgM 1:20- and currently on doxycycline. 01/25/21- ordered ezequiel lift with commode sling- she will need a commode. Home Health for PT/OT/Nursing for leg bandage changes. Pt would like to go home. He mobility has been the limiting factor. RT assessed pt for oxygen and she did not require any resting. Prognosis: guarded- difficult medical case with renal,cardiac,diabetes,autoimmune,neuro. Discharge to home when patient is up and walking. 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
[2021-01-26] MEDS: meTOproloL SUCCINATE 50 MG (TOPROL XL) TAB PO SCH (08:54)
[2021-01-26] MEDS: VALACYCLOVIR 500 MG TAB (VALTREX) PO SCH (08:54)
[2021-01-26] MEDS: MICONAZOLE 2% POWDER (DESENEX AF) 90 GM TOP SCH (08:54)
[2021-01-26] MEDS ORDERED: SERT-413 PO (11:00)
[2021-01-26] MEDS ORDERED: FENT1PAT8 TD (11:00)
[2021-01-26] MEDS ORDERED: DOXY100T2 PO (11:00)
[2021-01-26] MEDS ORDERED: METO50TA7 PO (11:00)
--- NOTE | 2021-01-26 11:07 | D/C HH Face to Face Order ---
D/C Face to Face Orders Instructions for Patient Via [facility], Patient Instructions/FollowUp: Participated with PT/OT home health Physician to follow Patient: Maxi Adler MD Discharge Diet for Home: Regular Diet Patient Problems: disability secondary to underlying health problems- etiology: neurological vs infection (strep septicemia) vs tick borne (erhlichiosis) vs vaccine induced (COVID19 vaccine). obesity diabetes mellitus II chronic kidney failure Patient Data-Allergies,Ht & Wt Patient Allergies: Coded Allergies: No Known Drug Allergies (Unverified , 09/16/17) Height (Feet): 5 Height (Inches): 2.00 Weight (Pounds): 280 Weight (Ounces): 0.0 Home Health Need/Face to Face Date of Face to Face: Jan 26, 2021 Clinical Findings: Generalized weakness and fatigue, Instability, Muscle weakness, Pain with ambulation, Shortness of breath, Unsteady gait, Wound infection, Non-healing wound I have seen Pt [id number]: Yes Discharged To: Home Diagnosis/Conditions: disability secondary to underlying health problems- etiology: neurological vs infection (strep septicemia) vs tick borne (erhlichiosis) vs vaccine induced (COVID19 vaccine). obesity diabetes mellitus II chronic kidney failure diastolic congestive heart failure Patient is Homebound due to: CognItive deficits, Bisi fall risk due to instabilty, Muscle weakness Homebound Status Due to the above stated illness, injury or surgical procedure (medical condition or diagnosis) and associated clinical findings, the patient is homebound because of his/her inability to leave home except with aid of a supportive device and/or person AND leaving the home requires a considerable and taxing effort or is medically contraindicated. Pt req the following assistanc: Wheelchair (ezequiel lift) Home Health Nursing Orders Home Health Services Order: Nursing Services, Cable Tender-Evaluate & Treat, Physical Therapy-Evaluate & Treat dressing changes of legs- Home Health Infusion Therapy Line Start Date: Jan 17, 2021 Home Health Lab Orders Labs (specify type/freq): tick borne titer (ehrlichiosis IgM, IgG) to be drawn on 02/02/21 Therapy Orders Therapy Orders: Physical Therapy Therapy Specific Orders: Eval assistive deivces, Teach strategies/cognitive deficits, Teach enviro modifications/safety, Increase strength/endurance, R estore ROM Certify Stmt I certify that this patient is under my care and that I, a nurse practitioner or a physician; a assistant professor of anthropology working with me, had a face to face encounter that - meets the physician face to face encounter requirements with this patient as dated. MAXI ADLER MD Jan 26, 2021 11:06
[2021-01-26] MEDS ORDERED: [UNRECOGNIZED DRUG - SUPPLY] (11:12)
[2021-01-26] MEDS ORDERED: commode (11:12)
[2021-01-26] MEDS: HYDROcodone/APAP 5 MG/325 MG (LORTAB) TAB PO PRN (13:10)
--- NOTE | 2021-01-28 09:36 | Discharge Summary ---
Diagnosis/Chief Complaint Date of Admission Jan 07, 2021 at 17:22 Date of Discharge Jan 26, 2021 at 17:45 Admission Diagnosis Admission Diagnosis (1) Severe sepsis (2) Type 2 diabetes mellitus with hyperglycemia (3) Chronic kidney disease (4) Lactic acidosis (5) Compensated metabolic acidosis (6) Diastolic CHF Qualifiers: Qualified Codes: I50.33 - Acute on chronic diastolic (congestive) heart failure (7) HTN (hypertension) Qualifiers: Qualified Codes: I10 - Essential (primary) hypertension (8) Generalized pain (9) Panniculitis Discharge Diagnosis (1) Positive serology for Erlichiosis (2) Type 2 diabetes mellitus with hyperglycemia (3) Chronic kidney disease (4) Diastolic CHF Qualifiers: Qualified Codes: I50.32 - Chronic diastolic (congestive) heart failure (5) HTN (hypertension) Qualifiers: Qualified Codes: I10 - Essential (primary) hypertension (6) Obesity hypoventilation syndrome (7) Disability due to neurological disorder (8) Generalized pain (9) Morbid obesity Reason Hospital Visit 40 yo F admitted for shortness of breath and overall pain. She has a history significant for uncontrolled diabetes, diastolic congestive heart failure, hypertension, and chronic renal failure. She has been having issues with pain for over a year but worsening overall pain for the past month. UDS positive for opioids- I did prescribe her hydrocodone last week for foot and leg pain. She reported her foot pain did improve with pain medicine. She has been more sedentary for last couple weeks due to pain and was using a walker but eventually needed a wheelchair. UDS also positive for amphetamine- I have given her phentermine for weight loss as well. Pt reports he pannus is more red than usual. Lactic acid 7 on admission. Hgb down from 11 to 8 from 1 year ago. MCV low. Patient denies any blood loss in her bowels. Patient admitted for severe sepsis - she was started on broad spectrum antibiotics and fluid bolused. Given her sedentary lifestyle over last month risk for PE, DVT is high- she was given 1x dose of 200mg lovenox. Discharge Summary Hospital Course Hospital Course admitted 01/07/21 Patient admitted for severe sepsis - she was started on broad spectrum antibiotics (vancomycin, zosyn) and fluid bolused. Given her sedentary lifestyle over last month risk for PE, DVT is high- she was given 1x dose of 200mg lovenox. V/Q scan ordered, lower ext U/S ordered. Echo ordered. -ordered 1x dose of bicarb IV to help with her metabolic acidosis - she is responding appropriately with increased respiratory rate. -slowed her IVF down to 100cc/hr. 1x dose of lasix 40mg IV x1 with good urine output. 01/08/21- improvement- lactic acid now 2. Cr improving. Pt is yelling out in pain but it does not appear to be pain - more of a delirium attributed to her sepsis and likely underlying mood disorder. -no DVT seen in legs- starting lovenox dvt ppx. awaiting V/Q scan. Echo 55-65% LVEF. -may be able to d/c vancomycin tomorrow if cultures remain GBS. 01/09/21- d/c vancomycin. Creatinine went up. awaiting final culture results. BNP still elevated- will start [id number] iv daily. Monitor Cr. transfused 1 unit pRBC. V/Q scan negative. 01/10/21- creatinine still elevated- will change dvt ppx to heparin from lovenox. de-escalating antibiotics. starting iv iron infusions for her fe anemia. Down to 1-2L oxygen via nasal cannula. Transfer to [facility]. Discharge planning. Xray obtained does not show any fractures of her shoulder. PT to work with patient and see how she is doing as she reported she could not ambulate on admission. 01/11/21- Nursing and PT concerned about something neurologic underlying. I agree, will try to transfer patient with neurology inpatient services. Her physical decline has progressed over the last month and she has reported she has not been able to walk this last week; prior to this she was using a walker. Her feet and legs hurt which contributed to her decrease in ability to walk as well as her body habitus. [facility] and [facility] declined patient for transfer. 01/12/21- evaluating patient for possible neurological etiology (MS) as she had internuclear ophthalmoplegia, and her weakness noted by nursing and PT, change in speech. Ordered MRI brain and lumbar puncture- looking for lesions on MRI and oligoclonal bands in spinal tap. If finding suggestive of MS will start steroids (800mg prednisone orally is cheapest for 5 days). Will likely need to get Cr down <1.5 before MRI can be done- stopped lasix today and ordered 1L LR bolus. will recheck Cr at 2pm -discussed with this AM (because he was not happy with how things were going) - I discussed with him their wishes from admission were to keep cost as low as possible as they are self pay. The cost is now not as big of a concern to him at this time. Also since she came in with septicemia, acute respiratory failure and kidney failure- we needed to get these addressed prior to further workup. -checked on patient this afternoon- said Miryam has made a 180 turn for the better and he would like to hold off and transferring her out. She is able to feed herself. Unable to get the MRI due to patient not fitting in MRI machine. Awaiting lumbar puncture results. D/c IVFs as she is eating better. Creatinine trending down. 01/15/21- did not improve over weekend- WBC still trending up but her steroid dosage was increased 01/13/21- will monitor. Keeping in mind trying to transfer in [facility] system; will keep this conversation open with as he thought about it but since she was improving on 01/12/21 he wanted her to stay at [facility]. Still awaiting LP result. Treating like she has MS. perkins 20units and SSI to try and counter steroids hyperglycemia effect. -IV pulled out - will need to get another PICC line. 01/16/21- PICC line placed today. blood sugars still elevated- increased levemir to 30 units qhs- may need to do BID. WBC trending down. Cr better. Will go ahead and do methylprednisolone 250mg [id number] and see if she has any improvement. -Need to get her up and walking and then she can go home. IV antibiotics until Friday. 01/17/21- Cr much improved. Hgb holding steady with Fe infusions. Stopped IV methylpred. Starting prednisone taper 01/18/21. Added AM levemir for elevated blood sugars. Stopped ancef- will do ceftriaxone 1g daily IV . Stop date 01/21/21. Discharge planning- right now what is stopping us is her mobility and cost. Via [facility] for rehab? 01/18/21- still awaiting LP results- should be back tomorrow or Friday. PT to continue working with patient because she could go home if she was walking/able to take care of herself. Kidneys at baseline. Fe infusions are helping with her Fe def anemia 01/19/21- Cr back to below baseline. Stopped repeat CBC, BMP, phos. No need to check daily. She was having increased pain yesterday likely in part to PT. Fentanyl patch applied. Still waiting on LP oligoclonal band results. will finish rocephin and steroids 01/21/21. Will need to decrease her insulin if blood sugars start to trend down. 01/22/21- awaiting tickborne labs. changed doxycycline to PO as IV access was lost again. Stopped blood draws for now as her hgb has dropped due to daily blood draws. Patient hopeful to go home tomorrow. 01/23/21- blood sugars are better since we have finished steroids- stopped AM levemir. Starting trazodone tonight to help her sleep. Work with PT- may go home today if is okay with all the help she needs. Right now she seems to require too much assistance. PT is going to try and get her in the wheelchair. 01/24/21- added sertraline 25mg to see if it helps with her anxiety. If she continues to have trouble breathing though we will need to obtain a CTA of chest- as she has been bed bound for 2 weeks and could have a PE. Heparin was restarted yesterday. She is on room air this AM. But when she had a breathing episode/panic- she was placed on BiPAP. Still working on getting her home. She was positive for Ehrlichiosis IgM 1:20- and currently on doxycycline. 01/25/21- ordered ezequiel lift with commode sling- she will need a commode. Home Health for PT/OT/Nursing for leg bandage changes. Pt would like to go home. He mobility has been the limiting factor. RT assessed pt for oxygen and she did not require any resting. Prognosis: guarded- difficult medical case with renal,cardiac, diabetes,autoimmune,neuro. Discharged to home; return if new medical concerns develop. Labs Laboratory Tests 01/25/21 10:41: Glucometer 144H 01/25/21 15:41: Glucometer 200H 01/25/21 20:42: Glucometer 144H 01/26/21 05:15: Chloride Level 108H, Carbon Dioxide Level 20L, Glucose Level 106H 01/26/21 10:54: 01/26/21 16:13: Procedures None. Discharge Physical Examination Allergies: Coded Allergies: No Known Drug Allergies (Unverified , 09/16/17) Vitals & I&Os Vital Signs Date Time Temp Pulse Resp B/P (MAP) Pulse Ox O2 Delivery O2 Flow Rate FiO2 01/26/21 16:00 36.7 118 22 132/87 (102) 93 Room Air 01/26/21 11:46 2.00 01/24/21 13:31 28 General Appearance: Alert, Oriented X3 HEENT: Atraumatic Respiratory: Clear to Auscultation Cardiovascular: Regular Rate Abdominal: Normal Bowel Sounds Psych/Mental Status: Mental Status NL Discharge Home Medications Reviewed and agree with Discharge Medication list on patient's Discharge Instru ction sheet Condition at Discharge improved Instructions to Patient/Family Please see electronic discharge instructions given to patient. CHAZ ADLER MD Jan 28, 2021 09:36
[2021-01-29] MEDS ORDERED: PHEN37.53 PO (10:50)
== END 2021-01-26 17:45 | disposition home health service (06) | DRG 871 ==
LOC: EDUNIT# 14:54 → ER 14:55 → ICU 17:22 → 4TH 01-08 14:26 → ICU 01-08 21:35 → 4TH 01-10 09:31
PROVIDERS: ADMIT Family Medicine; ATTEND Family Medicine
PROC: 5A09357 Assistance with Respiratory Ventilation, Less than 24 Consecutive Hours, Continuous Positive Airway Pressure (ICD-10-PCS; principal; 2021-01-08)
PROC: 02HV33Z Insertion of Infusion Device into Superior Vena Cava, Percutaneous Approach (ICD-10-PCS; 2021-01-15)
PROC: 009U3ZX Drainage of Spinal Canal, Percutaneous Approach, Diagnostic (ICD-10-PCS; 2021-01-15)
DX: A40.1 Sepsis due to streptococcus, group B (principal); I50.33 Acute on chronic diastolic (congestive) heart failure; J96.01 Acute respiratory failure with hypoxia; L03.311 Cellulitis of abdominal wall; Z68.43 Body mass index [BMI] 50.0-59.9, adult; E87.2 Acidosis; I13.0 Hypertensive heart and chronic kidney disease with heart failure and stage 1 through stage 4 chronic kidney disease, or unspecified chronic kidney disease; N17.9 Acute kidney failure, unspecified; M79.3 Panniculitis, unspecified; R65.20 Severe sepsis without septic shock; E66.01 Morbid (severe) obesity due to excess calories; Z20.822 Contact with and (suspected) exposure to COVID-19; N18.9 Chronic kidney disease, unspecified; E11.22 Type 2 diabetes mellitus with diabetic chronic kidney disease; E11.65 Type 2 diabetes mellitus with hyperglycemia; D64.9 Anemia, unspecified; G35 Multiple sclerosis; R26.9 Unspecified abnormalities of gait and mobility; Z79.84 Long term (current) use of oral hypoglycemic drugs; Z79.82 Long term (current) use of aspirin; Z79.899 Other long term (current) drug therapy
CPT/HCPCS: 36410; 36415; 36569; 51702; 70450; 71045; 73020; 76830; 76937; 80048; 80053; 80306; 80320; 80329; 81000; 82010; 82274; 82805; 82945; 82947; 83036; 83605; 83735; 83873; 83880; 83916; 84100; 84703; 85007; 85025; 85027; 85379; 85384; 85610; 85652; 85730; 86618; 86666; 86668; 86757; 86788; 86789; 86850; 86900; 86901; 86920; 87040; 87070; 87077; 87186; 87205; 87636; 89051; 93306; 93970; 94640; 94660; 94760; 96372; 96374; 96375

== ENCOUNTER 2021-01-27 07:47 | Inpatient (IN) | payer SELFPAY ==
[~2021-01-27] VITALS: Ht 154.9 cm; Wt 177.8 kg
[~2021-01-27 07:47] MED LIST changes: +ACET325T38 PO; +ASPI-1238 PO; +DOXE10CA29 PO; +DOXY100T2 PO; +EMPA1TAB32 PO; +FENT1PAT8 TD; +FURO20TA4 PO; +METF-397 PO; +METF500S5 PO; +METO50TA7 PO; +MULT-1136 PO; +PHEN-483 PO; +SERT-413 PO; +[UNRECOGNIZED DRUG - SUPPLY]; +commode
[2021-01-27] MEDS ORDERED: NS IV 1000 ML 1,000 ML IV SCH ×2 (08:15→10:00)
--- NOTE | 2021-01-27 08:15 | ED General ---
General Stated Complaint: LATHARGIC Source of Information: Patient, EMS Exam Limitations: No Limitations History of Present Illness Date Seen by Provider: Jan 27, 2021 Time Seen by Provider: 07:50 Initial Comments Patient is a 40-year-old female who presents to the emergency department today after being discharged from the hospital with "sepsis" yesterday. Patient was found to have oxygen saturations about 60% off oxygen. Her had tried to advocate for her getting oxygen on discharge yesterday but she did not receive a prescription for it. She became more short of breath this morning. She feels h ot to the touch. She complains of shortness of breath. She did have albuterol neb treatment per EMS prior to arrival. She denies any complaints of pain. No sore throat no chest pain, no abdominal pain. She is 97.5 oral temperature on arrival. Tachycardic with a good blood pressure. Oxygen sats on 6 L per nasal cannula are 94 to 96%. She does seem somewhat tachypneic. I have not had a chance to review the medical record from her hospitalization. Patient states that she is Covid vaccinated and was Covid tested during her hospitalization for sepsis. This was negative. Patient is morbidly obese. Large pannus with some erythema at the inferior margins. All other review of systems reviewed and negative except as stated. Timing/Duration: 1-3 Hours Severity: Severe Associated Systoms: Shortness of Air, Weakness Allergies and Home Medications Allergies Coded Allergies: No Known Drug Allergies (Unverified , 09/16/17) Home Medications Acetaminophen 325 Mg Tablet, 650 MG PO Q6H PRN for PAIN-MILD (1-4), (Reported) TAKES 2 (325MG) TABLETS Amlodipine Besylate 10 Mg Tablet, 10 MG PO DAILY, (Reported) Aspirin 81 Mg Tablet.dr, 81 MG PO DAILY, (Reported) Doxycycline Hyclate 100 Mg Tablet, 100 MG PO BID@17 Prescribed by: MAXI ADLER on 01/26/21 1100 Fentanyl 1 Each Patch.td72, 25 MCG TD Q72H Prescribed by: MAXI ADLER on 01/26/21 1100 Furosemide 20 Mg Tablet, 20 MG PO DAILY, (Reported) Hydrocodone/Acetaminophen 1 Each Tablet, 1 TAB PO Q8H PRN for PAIN-MODERATE (5- 7), (Reported) Metformin HCl 500 Mg Tablet, 500 MG PO BID PRN for WHEN OUT OF TRIJARDY SAMPLES, (Reported) Metoprolol Succinate 50 Mg Tab.er.24h, 50 MG PO BID Prescribed by: MAXI ADLER on 01/26/21 1100 Multivitamin 1 Each Tablet, 1 EACH PO DAILY, (Reported) Sertraline HCl 50 Mg Tablet, 50 MG PO HS Prescribed by: MAXI ADLER on 01/26/21 1100 Patient Home Medication List Home Medication List Reviewed: Yes Review of Systems Review of Systems Constitutional: see HPI EENTM: no symptoms reported Respiratory: short of breath Cardiovascular: no symptoms reported Gastrointestinal: no symptoms reported Genitourinary: no symptoms reported Musculoskeletal: no symptoms reported Skin: no symptoms reported All Other Systems Reviewed Negative Unless Noted: Yes Past Eicvkot-Ljwmjj-Nznrec Hx Seasonal Allergies Seasonal Allergies: No Past Medical History Surgeries: Yes Tonsillectomy Respiratory: No Cardiac: Yes Hypertension Neurological: No Genitourinary: No Gastrointestinal: No Musculoskeletal: No Endocrine: No Diabetes, Non-Insulin dep HEENT: No Cancer: No Psychosocial: No Integumentary: No Blood Disorders: No Family Medical History Heart Disease, Cancer, CAD Over 55 Years Old, Hypertension Physical Exam Vital Signs Vital Signs - First Documented 01/27/21 07:47 Temp 36.1 Pulse 115 Resp 20 B/P (MAP) 178/112 (134) Pulse Ox 94 O2 Delivery Nasal Cannula Capillary Refill : Height, Weight, BMI Height: 5'2.00" Weight: 280lbs. 0.0oz. [id number]; 53.61 BMI Method:Stated General Appearance: No Apparent Distress, WD/WN Respiratory: No Accessory Muscle Use, Wheezing, Other (Tachypnea, albuterol neb running on presentation) Cardiovascular: Regular Rate, Rhythm (Tachycardia) Extremity: Normal Inspection Neurologic/Psychiatric: Alert, Oriented x3, No Motor/Sensory Deficits, Normal Mood/Affect Skin: Normal Color, Warm/Dry, Rash (Inferior margin of pannus is quite erythematous) Focused Exam Lactate Level 01/27/21 07:55: Lactic Acid Level 1.48 Lactic Acid Level Laboratory Tests Test 01/27/21 07:55 Lactic Acid Level 1.48 MMOL/L (0.50-2.00) Procedures/Interventions Suture Size: 2-0 Progress/Results/Core Measures Suspected Sepsis SIRS Temperature: Pulse: Respiratory Rate: Laboratory Tests 01/27/21 07:55: White Blood Count 21.0H Blood Pressure / Mean: 01/27/21 07:55: Lactic Acid Level 1.48 Laboratory Tests 01/27/21 07:55: Creatinine 0.85, INR Comment 1.2, Platelet Count 425H, Total Bilirubin 0.3 Results/Orders Lab Results Laboratory Tests Test 01/27/21 07:55 01/27/21 08:30 01/27/21 08:38 Range/Units White Blood Count 21.0 H 4.3-11.0 10^3/uL Red Blood Count 3.17 L 3.80-5.11 10^6/uL Hemoglobin 7.4 L 11.5-16.0 g/dL Hematocrit 26 L 35-52 % Mean Corpuscular Volume 83 80-99 fL Mean Corpuscular Hemoglobin 23 L 25-34 pg Mean Corpuscular Hemoglobin Concent 28 L 32-36 g/dL Red Cell Distribution Width 27.2 H 10.0-14.5 % Platelet Count 425 H 130-400 10^3/uL Mean Platelet Volume 9.7 9.0-12.2 fL Immature Granulocyte % (Auto) 17 % Neutrophils (%) (Auto) 74 42-75 % Lymphocytes (%) (Auto) 5 L 12-44 % Monocytes (%) (Auto) 4 0-12 % Eosinophils (%) (Auto) 0 0-10 % Basophils (%) (Auto) 0 0-10 % Neutrophils # (Auto) 15.6 H 1.8-7.8 10^3/uL Lymphocytes # (Auto) 1.1 1.0-4.0 10^3/uL Monocytes # (Auto) 0.8 0.0-1.0 10^3/uL Eosinophils # (Auto) 0.1 0.0-0.3 10^3/uL Basophils # (Auto) 0.0 0.0-0.1 10^3/uL Immature Granulocyte # (Auto) 3.5 H 0.0-0.1 10^3/uL Neutrophils % (Manual) 78 % Lymphocytes % (Manual) 9 % Monocytes % (Manual) 0 % Eosinophils % (Manual) 0 % Basophils % (Manual) 0 % Metamyelocytes % 2 % Myelocytes % 2 % Band Neutrophils 9 % Nucleated Red Blood Cells 1 Polychromasia SLIGHT Hypochromasia SLIGHT Anisocytosis MARKED Prothrombin Time 15.8 H 12.2-14.7 SEC INR Comment 1.2 0.8-1.4 Activated Partial Thromboplast Time 32 24-35 SEC Sodium Level 142 135-145 MMOL/L Potassium Level 4.6 3.6-5.0 MMOL/L Chloride Level 108 H 98-107 MMOL/L Carbon Dioxide Level 18 L 21-32 MMOL/L Anion Gap 16 H 5-14 MMOL/L Blood Urea Nitrogen 15 7-18 MG/DL Creatinine 0.85 0.60-1.30 MG/DL Estimat Glomerular Filtration Rate > 60 BUN/Creatinine Ratio 18 Glucose Level 186 H 70-105 MG/DL Lactic Acid Level 1.48 0.50-2.00 MMOL/L Calcium Level 8.3 L 8.5-10.1 MG/DL Corrected Calcium 9.3 8.5-10.1 MG/DL Total Bilirubin 0.3 0.1-1.0 MG/DL Aspartate Amino Transf (AST/SGOT) 17 5-34 U/L Alanine Aminotransferase (ALT/SGPT) 13 0-55 U/L Alkaline Phosphatase 90 40-136 U/L Troponin I 0.116 H <0.028 NG/ML B-Type Natriuretic Peptide 507.1 H <100.0 PG/ML Total Protein 5.7 L 6.4-8.2 GM/DL Albumin 2.7 L 3.2-4.5 GM/DL Procalcitonin 0.55 H <0.10 NG/ML SARS-CoV-2 RNA (RT-PCR) Not Detected Not Detecte Urine Color YELLOW Urine Clarity CLEAR Urine pH 5.5 5-9 Urine Specific Burton >=1.030 1.016-1.022 Urine Protein 2+ H NEGATIVE Urine Glucose (UA) NEGATIVE NEGATIVE Urine Ketones NEGATIVE NEGATIVE Urine Nitrite NEGATIVE NEGATIVE Urine Bilirubin NEGATIVE NEGATIVE Urine Urobilinogen 0.2 < = 1.0 MG/DL Urine Leukocyte Esterase TRACE H NEGATIVE Urine RBC (Auto) 3+ H NEGATIVE Urine RBC 50-100 H /HPF Urine WBC 2-5 /HPF Urine Squamous Epithelial Cells 5-10 /HPF Urine Crystals NONE /LPF Urine Bacteria TRACE /HPF Urine Casts PRESENT /LPF Urine Hyaline Casts 0-2 H /LPF Urine Mucus NEGATIVE /LPF Urine Culture Indicated NO My Orders Orders - ORLANDO GALICIA MD Cbc With Automated Diff (01/27/21 08:11) Comprehensive Metabolic Panel (01/27/21 08:11) Blood Culture (01/27/21 08:11) Sputum Culture (01/27/21 08:11) Urinalysis (01/27/21 08:11) Urine Culture (01/27/21 08:11) Protime With Inr (01/27/21 08:11) Partial Thromboplastin Time (01/27/21 08:11) Chest 1 View, Ap/Pa Only (01/27/21 08:11) Ed Iv/Invasive Line Start (01/27/21 08:11) Ed Iv/Invasive Line Start (01/27/21 08:11) Vital Signs Adult Sepsis Patie Q15M (01/27/21 08:11) O2 (01/27/21 08:11) Remove Rings In Anticipation O (01/27/21 08:11) Lactic Acid Analyzer (01/27/21 08:11) Ns Iv 1000 Ml (Sodium Chloride 0.9%) (01/27/21 08:15) Covid 19 Inhouse Test (01/27/21 08:23) Manual Differential (01/27/21 07:55) Procalcitonin (Pct) (01/27/21 09:12) Ns Iv 1000 Ml (Sodium Chloride 0.9%) (01/27/21 10:00) Hydrocodone/Apap 5/325 Tablet (Lortab 5 (01/27/21 10:30) Ekg Tracing (01/27/21 10:32) Troponin I (01/27/21 10:32) BNP (01/27/21 10:32) Cefepime Injection (Maxipime Injection) (01/27/21 11:00) Vancomycin Injection (Vancomycin Injecti (01/27/21 11:00) Methylprednisolone Sod Succ (Solu-Medrol (01/27/21 10:47) Vancomycin Injection (Vancomycin Injecti (01/27/21 11:15) Arterial Blood Gas (01/27/21 11:56) Lorazepam Injection (Ativan Injection) (01/27/21 12:35) Medications Given in ED Current Medications Medications Dose Ordered Sig/Walter Route Start Time Stop Time Status Last Admin Dose Admin Acetaminophen/ Hydrocodone Bitart 1 ea ONCE ONCE PO 01/27/21 10:30 01/27/21 10:31 DC 01/27/21 10:34 1 EA Cefepime HCl 1000 mg/Sterile Water 10 ml @ 200 mls/hr ONCE ONCE IV 01/27/21 11:00 01/27/21 11:02 DC 01/27/21 11:30 200 MLS/HR Lorazepam 2 mg STK-MED ONCE .ROUTE 01/27/21 12:35 01/27/21 12:38 DC 01/27/21 12:40 2 MG Vancomycin HCl 2000 mg/Sodium Chloride 520 ml @ 250 mls/hr ONCE ONCE IV 01/27/21 11:15 01/27/21 13:19 DC 01/27/21 12:41 250 MLS/HR Vital Signs/I&O 01/27/21 07:47 Temp 36.1 Pulse 115 Resp 20 B/P (MAP) 178/112 (134) Pulse Ox 94 O2 Delivery Nasal Cannula Capillary Refill : Progress Note : Time: 10:45 Progress Note Also discussed with Dr. Maxi Adler. He states ultimately this patient needs transfer for MRI for completion of work-up for MS. She has positive oligoclonal bands on lumbar puncture. Intermittent slurred speech. 1 day during her hospitalization she had an internuclear ophthalmoplegia but he states it only lasted a day. He did put her on some high-dose steroids but is not sure that really helped her. Her last dose of steroids he believes was last Friday. Patient continues to complain of some numbness in her feet now. She is quite tachypneic. Her sats are holding at 94 to 96%. I will put her back on antibiotics and Dr. Adler recommended 1000 mg of methylprednisolone with 500 twice daily. I am going to possibly talk to about her. 1200 Call made to to inquire about possible transfer for medical management of her hypoxia and neurology consultation. I spoke with Dr. Montano on for neurology. He does not feel like at this time there is any urgent reason for neurological transfer. At 1245 called back and their medicine team declined her transfer at this time secondary to capacity. Patient will be admitted to this facility for further management of her hypoxia, IV antibiotics and steroids. I did discuss the case again with Dr. Adler and he is agreeable. ECG Initial ECG Impression Date: Jan 27, 2021 Initial ECG Impression Time: 10:56 Initial ECG Rate: 114 Initial ECG Rhythm: Normal Sinus Initial ECG Intervals: Normal Initial ECG Impression: Normal Departure Communication (Admissions) Time/Spoke to Admitting Phy: 10:[address] Kathia Wheeler at 1030. Accepts patient for admission. Would like a troponin. We will add an EKG and BNP at this time Time/Spoke to Consulting Phy: 13:[address] Gutiérrez and made him aware of elevated troponin. I also called Dr. Wheeler back and made her aware. Impression Primary Impression: Sepsis Qualified Codes: A41.9 - Sepsis, unspecified organism; R65.20 - Severe sepsis without septic shock; J96.01 - Acute respiratory failure with hypoxia Additional Impression: Hypoxia Disposition: 09 ADMITTED INPATIENT Condition: Stable Admissions Decision to Admit Reason: Admit from ER (General) Decision to Admit/Date: Jan 27, 2021 Time/Decision to Admit Time: 10:44 Departure-Patient Inst. Referrals: NO,LOCAL PHYSICIAN (PCP/Family) Primary Care Physician ORLANDO GALICIA MD Jan 27, 2021 08:15
[2021-01-27 08:23] LABS: ALBUMIN 2.7 GM/DL (3.2-4.5); CHLORIDE 108 MMOL/L (98-107); POTASSIUM 4.6 MMOL/L (3.6-5.0); SODIUM 142 MMOL/L (135-145)
[2021-01-27 08:25] LABS: CALCIUM 8.3 MG/DL (8.5-10.1)
[2021-01-27 08:26] LABS: GLUCOSE 186 MG/DL (70-105); TOTAL PROTEIN 5.7 GM/DL (6.4-8.2)
[2021-01-27 08:27] LABS: CARBON DIOXIDE 18 MMOL/L (21-32)
[2021-01-27 08:28] LABS: BILIRUBIN,TOTAL 0.3 MG/DL (0.1-1.0)
[2021-01-27 08:29] LABS: ALKALINE PHOSPHATASE 90 U/L (40-136); CREATININE SERUM 0.85 MG/DL (0.60-1.30); GFR ESTIMATED > 60
[2021-01-27 08:30] LABS: BUN/CREATININE RATIO 18
[2021-01-27 08:31] LABS: BASOPHILS % (AUTO) 0 % (0-10); EOSINOPHILS # (AUTO) 0.1 10^3/uL (0.0-0.3); EOSINOPHILS % (AUTO) 0 % (0-10); HEMATOCRIT 26 % (35-52); HEMOGLOBIN 7.4 g/dL (11.5-16.0); LYMPHOCYTES # (AUTO) 1.1 10^3/uL (1.0-4.0); LYMPHOCYTES % (AUTO) 5 % (12-44); MEAN CORPUSCULAR HEMOGLOBIN 23 pg (25-34); MEAN CORPUSCULAR HGB CONC 28 g/dL (32-36); MEAN CORPUSCULAR VOLUME 83 fL (80-99); MEAN PLATELET VOLUME 9.7 fL (9.0-12.2); MONOCYTES # (AUTO) 0.8 10^3/uL (0.0-1.0); MONOCYTES % (AUTO) 4 % (0-12); NEUTROPHILS # (AUTO) 15.6 10^3/uL (1.8-7.8); NEUTROPHILS % (AUTO) 74 % (42-75); PLATELET COUNT 425 10^3/uL (130-400)
[2021-01-27 08:32] LABS: ALANINE AMINOTRANSFERASE 13 U/L (0-55)
[2021-01-27 08:36] LABS: INR 1.2 (0.8-1.4); PROTHROMBIN TIME PATIENT 15.8 SEC (12.2-14.7)
[2021-01-27 08:46] LABS: BILIRUBIN,URINE NEGATIVE (NEGATIVE); CLARITY,URINE CLEAR; COLOR,URINE YELLOW; GLUCOSE, URINE (UA) NEGATIVE (NEGATIVE); KETONES,URINE NEGATIVE (NEGATIVE); LEUKOCYTE ESTERASE ,URINE TRACE (NEGATIVE); NITRITE,URINE NEGATIVE (NEGATIVE); PH,URINE 5.5 (5-9); PROTEIN,URINE 2+ (NEGATIVE)
--- NOTE | 2021-01-27 08:50 | Diagnostic Imaging Report ---
INDICATION: Shortness of air, cough, and congestion. COMPARISON STUDY: Chest from 4 days ago. FINDINGS: Portable upright view of the chest demonstrates stable severe cardiomegaly with mild congestion. No effusions are present. IMPRESSION: There is stable severe cardiomegaly with mild pulmonary congestion. Dictated by: Dictated on workstation # [id number]
[2021-01-27 09:09] LABS: BACTERIA,URINE TRACE /HPF; HYALINE CASTS, URINE 0-2 /LPF; RBC,URINE 50-100 /HPF
[2021-01-27 09:17] LABS: ANISOCYTOSIS MARKED; BAND NEUTROPHILS 9 %; BASOPHILS % (MANUAL) 0 %; EOSINOPHILS % (MANUAL) 0 %; HYPOCHROMASIA SLIGHT; LYMPHOCYTES % (MANUAL) 9 %; METAMYELOCYTES % 2 %; MONOCYTES % (MANUAL) 0 %; MYELOCYTES % 2 %; NEUTROPHILS % (MANUAL) 78 %; NUCLEATED RED BLOOD CELLS 1; POLYCHROMASIA SLIGHT
[2021-01-27] MEDS ORDERED: HYDROcodone/APAP 5 MG/325 MG (LORTAB) TAB PO ONE (10:30)
[2021-01-27] MEDS ORDERED: methylPREDNISolone SOD SUCC 1,000 MG in NS (IVPB) 100 ML IV STA (10:47)
[2021-01-27] MEDS ORDERED: CEFEPIME INJECTION 1,000 MG in WATER (STERILE) FOR INJECTION 10 ML IV ONE (11:00)
[2021-01-27] MEDS ORDERED: VANCOMYCIN INJECTION 1,000 MG in NS (IVPB) 250 ML IV ONE (11:00)
[2021-01-27] MEDS ORDERED: VANCOMYCIN INJECTION 2,000 MG in NS IV 500 ML 500 ML IV ONE (11:15)
[2021-01-27] MEDS: LORazepam INJ 2 MG/ML (ATIVAN) VIAL ONE (12:40)
[2021-01-27 14:19] LABS: ABG BASE EXCESS -6.5 MMOL/L (-2.5-2.5); ABG OXYGEN SATURATION 95 % (94-100); ABG PCO2 31 MMHG (35-45); ABG PH 7.38 (7.37-7.43); ABG PO2 82 MMHG (79-93); ABG TCO2 18.7 MMOL/L (21.0-31.0)
[2021-01-27 14:20] LABS: ALLENS TEST YES-POS; INSPIRED O2 6L; VENTILATOR NO
[2021-01-27] MEDS ORDERED: LABETALOL HCL 20 MG/4 ML VIAL IV ONE (14:30)
[2021-01-27 15:30] VITALS: BP 179/129
[2021-01-27 15:55] VITALS: BP 179/129
[2021-01-27] MEDS ORDERED: RT-ALBUTEROL/IPRATROPIUM 3 ML (DUONEB) VIAL ONE (16:06)
--- NOTE | 2021-01-27 16:12 | Consultation-Cardiology ---
HPI-Cardiology Cardiology Consultation: Date of Consultation 01/27/21 Date of Admission Attending Physician Kathia Wheeler MD Admitting Physician No,Local Physician Consulting Physician ENOC LAWSON JR, MD HPI: Time Seen by a Provider: 16:07 Chief Complaint: Reason for consultation: Elevated troponin level. She is a 40-year-old female who was just discharged from hospital yesterday after being treated for cellulitis of both lower extremities. She has no known history of coronary artery disease but does carry a diagnosis of chronic heart failure with preserved ejection fraction. Today she presented to the emergency room with worsening shortness of breath. When I saw her on the cardiac stepdown unit, she also tells me she has been having some chest tightness at home. During her evaluation in the emergency room, troponin level was drawn and this was shown to be mildly elevated. As such, the emergency room physician requested a cardiology consultation. When I saw the patient in her room she was very tachypneic and was sleeping when I first went in. She awoke to voice but was not answering all that many questions as she appeared to be exhausted from today's events. She does have morbid obesity with chronic bilateral lower extremity edema and intermittent panniculitis as well as cellulitis of both legs. She was also just recently diagnosed with diabetes during her previous hospitalization. I was not able to obtain any other history from the patient due to her clinical status. Certain portions of this document may have been dictated utilizing voice recognition technology. Inherent to this technology, typographical and grammatical errors may exist. As much as I am diligent to identify and correct these mistakes, some errors may remain in the document. Review of Systems-Cardiology Review of Systems Other comments Not obtainable due to clinical status. All Other Systems Reviewed Negative Unless Noted: Yes [id number] Hx Patient Social History Marrital Status: Have you traveled recently?: No Alcohol Use?: No Pt feels they are or have been: No Past Medical History PMH As described under Assessment. Family Medical History Family Medical History: Not obtainable due to clinical status. Allergies and Home Medications Allergies Coded Allergies: No Known Drug Allergies (Unverified , 09/16/17) Home Medications Acetaminophen 325 Mg Tablet, 650 MG PO Q6H PRN for PAIN-MILD (1-4), (Reported) TAKES 2 (325MG) TABLETS Amlodipine Besylate 10 Mg Tablet, 10 MG PO DAILY, (Reported) Aspirin 81 Mg Tablet.dr, 81 MG PO DAILY, (Reported) Doxycycline Hyclate 100 Mg Tablet, 100 MG PO BID@,17 Prescribed by: CHAZ ADLER on 01/26/21 1100 Fentanyl 1 Each Patch.td72, 25 MCG TD Q72H Prescribed by: CHAZ ADLER on 01/26/21 1100 Furosemide 20 Mg Tablet, 20 MG PO DAILY, (Reported) Hydrocodone/Acetaminophen 1 Each Tablet, 1 TAB PO Q8H PRN for PAIN-MODERATE (5- 7), (Reported) Metformin HCl 500 Mg Tablet, 500 MG PO BID PRN for WHEN OUT OF TRIJARDY SAMPLES, (Reported) Metoprolol Succinate 50 Mg Tab.er.24h, 50 MG PO BID Prescribed by: CHAZ ADLER on 01/26/21 1100 Multivitamin 1 Each Tablet, 1 EACH PO DAILY, (Reported) Sertraline HCl 50 Mg Tablet, 50 MG PO HS Prescribed by: CHAZ ADLER on 01/26/21 1100 Patient Home Medication List Home Medication List Reviewed: Yes Exam Vital Signs Vital Signs Date Time Temp Pulse Resp B/P (MAP) Pulse Ox O2 Delivery O2 Flow Rate FiO2 01/27/21 15:55 36.1 103 96 01/27/21 15:30 30 179/129 (146) Nasal Cannula 6.00 Physical Exam General: Somnolent. Mild respiratory distress with tachypnea. Well nourished and appears older than stated age. Eye: Extraocular movements are intact. Conjunctivae are clear. There are no xanthelasma. HENT: Normocephalic. Atraumatic. Carotid pulsations 2/2 without bruits. Neck: Jugular venous pressure does not appear elevated. No thyromegaly appreciated. Respiratory: Tachypneic. Lungs are clear to auscultation. Respirations are non- labored. Breath sounds are equal. Symmetrical chest wall expansion. Cardiovascular: Tachycardic. Regular rhythm. Distant S1/S2. No murmur. No gallop. Point of maximal impulse is not appear displaced. Good pulses equal in all extremities. 1+ bilateral pretibial edema with several bandages on both legs with some scattered erythema. Gastrointestinal: Soft. Normal bowel sounds. Skin: Skin turgor is normal. There is no pallor. Musculoskeletal: No obvious joint deformity. Neurologic: Somnolent. Cranial nerves 3-12 appear grossly intact. Patient not able to cooperate with motor exam. Psychiatric: Somnolent but does open her eyes to voice. Labs Laboratory Tests Test 01/27/21 07:55 01/27/21 08:30 01/27/21 08:38 01/27/21 14:00 Range/Units White Blood Count 21.0 H 4.3-11.0 10^3/uL Red Blood Count 3.17 L 3.80-5.11 10^6/uL Hemoglobin 7.4 L 11.5-16.0 g/dL Hematocrit 26 L 35-52 % Mean Corpuscular Volume 83 80-99 fL Mean Corpuscular Hemoglobin 23 L 25-34 pg Mean Corpuscular Hemoglobin Concent 28 L 32-36 g/dL Red Cell Distribution Width 27.2 H 10.0-14.5 % Platelet Count 425 H 130-400 10^3/uL Mean Platelet Volume 9.7 9.0-12.2 fL Immature Granulocyte % (Auto) 17 % Neutrophils (%) (Auto) 74 42-75 % Lymphocytes (%) (Auto) 5 L 12-44 % Monocytes (%) (Auto) 4 0-12 % Eosinophils (%) (Auto) 0 0-10 % Basophils (%) (Auto) 0 0-10 % Neutrophils # (Auto) 15.6 H 1.8-7.8 10^3/uL Lymphocytes # (Auto) 1.1 1.0-4.0 10^3/uL Monocytes # (Auto) 0.8 0.0-1.0 10^3/uL Eosinophils # (Auto) 0.1 0.0-0.3 10^3/uL Basophils # (Auto) 0.0 0.0-0.1 10^3/uL Immature Granulocyte # (Auto) 3.5 H 0.0-0.1 10^3/uL Neutrophils % (Manual) 78 % Lymphocytes % (Manual) 9 % Monocytes % (Manual) 0 % Eosinophils % (Manual) 0 % Basophils % (Manual) 0 % Metamyelocytes % 2 % Myelocytes % 2 % Band Neutrophils 9 % Nucleated Red Blood Cells 1 Polychromasia SLIGHT Hypochromasia SLIGHT Anisocytosis MARKED Prothrombin Time 15.8 H 12.2-14.7 SEC INR Comment 1.2 0.8-1.4 Activated Partial Thromboplast Time 32 24-35 SEC Sodium Level 142 135-145 MMOL/L Potassium Level 4.6 3.6-5.0 MMOL/L Chloride Level 108 H 98-107 MMOL/L Carbon Dioxide Level 18 L 21-32 MMOL/L Anion Gap 16 H 5-14 MMOL/L Blood Urea Nitrogen 15 7-18 MG/DL Creatinine 0.85 0.60-1.30 MG/DL Estimat Glomerular Filtration Rate > 60 BUN/Creatinine Ratio 18 Glucose Level 186 H 70-105 MG/DL Lactic Acid Level 1.48 0.50-2.00 MMOL/L Calcium Level 8.3 L 8.5-10.1 MG/DL Corrected Calcium 9.3 8.5-10.1 MG/DL Total Bilirubin 0.3 0.1-1.0 MG/DL Aspartate Amino Transf (AST/SGOT) 17 5-34 U/L Alanine Aminotransferase (ALT/SGPT) 13 0-55 U/L Alkaline Phosphatase 90 40-136 U/L Troponin I 0.116 H <0.028 NG/ML B-Type Natriuretic Peptide 507.1 H <100.0 PG/ML Total Protein 5.7 L 6.4-8.2 GM/DL Albumin 2.7 L 3.2-4.5 GM/DL Procalcitonin 0.55 H <0.10 NG/ML SARS-CoV-2 RNA (RT-PCR) Not Detected Not Detecte Urine Color YELLOW Urine Clarity CLEAR Urine pH 5.5 5-9 Urine Specific [place] >=1.030 1.016-1.022 Urine Protein 2+ H NEGATIVE Urine Glucose (UA) NEGATIVE NEGATIVE Urine Ketones NEGATIVE NEGATIVE Urine Nitrite NEGATIVE NEGATIVE Urine Bilirubin NEGATIVE NEGATIVE Urine Urobilinogen 0.2 < = 1.0 MG/DL Urine Leukocyte Esterase TRACE H NEGATIVE Urine RBC (Auto) 3+ H NEGATIVE Urine RBC 50-100 H /HPF Urine WBC 2-5 /HPF Urine Squamous Epithelial Cells 5-10 /HPF Urine Crystals NONE /LPF Urine Bacteria TRACE /HPF Urine Casts PRESENT /LPF Urine Hyaline Casts 0-2 H /LPF Urine Mucus NEGATIVE /LPF Urine Culture Indicated NO Blood Gas Puncture Site R RAD Blood Gas Patient Temperature 37.0 Arterial Blood pH 7.38 7.37-7.43 Arterial Blood Partial Pressure CO2 31 L 35-45 MMHG Arterial Blood Partial Pressure O2 82 79-93 MMHG Arterial Blood HCO3 18 L 23-27 MMOL/L Arterial Blood Total CO2 18.7 L 21.0-31.0 MMOL/L Arterial Blood Oxygen Saturation 95 94-100 % Arterial Blood Base Excess -6.5 L -2.5-2.5 MMOL/L Denilson Test YES-POS Blood Gas Ventilator Setting NO Blood Gas Inspired Oxygen 6L Radiology ELECTROCARDIOGRAM (01/27/2021): Sinus tachycardia at [address] changes. Diagnosis/Problems Diagnosis/Problems (1) Troponin level elevated Assessment & Plan: This could be a type II non-ST elevation myocardial infarction due to supply/demand mismatch from her acute respiratory decompensation and ongoing tachycardia. However, she is also having some ill described chest discomfort. I will start her on low strength aspirin. Resume beta-hiram when able. We will trend the troponin levels. Lipid panel has been ordered. I will obtain an echocardiogram in the morning. Depending upon the follow-up troponin levels, we will determine whether we can proceed with a noninvasive cardiac evaluation versus invasive. (2) Chest pain Assessment & Plan: Etiology unclear. I suspect this could be multifactorial related to her chronic respiratory failure and musculoskeletal disorder related to morbid obesity and difficult transfers. We will proceed as above. (3) Acute on chronic diastolic heart failure Assessment & Plan: She also has an elevated BNP level and presented with worsening dyspnea. I will start her on IV furosemide and obtain a follow-up chest x-ray in the morning. (4) Essential hypertension Assessment & Plan: We will watch her blood pressures closely and resume her outpatient medication as tolerated. (5) Morbid obesity Assessment & Plan: Her obesity is most likely leading to the majority of her medical conditions. Once she gets through this acute illness, I would consider referral to a bariatric surgeon. ENOC LAWSON JR, MD Jan 27, 2021 16:12
[2021-01-27] MEDS ORDERED: ASPIRIN E.C. 81 MG (ECOTRIN) TAB PO ONE (16:15)
[2021-01-27] MEDS: CEFEPIME 1,000 MG/SWFI 10 ML IV PUSH IV SCH ×4 (17:14→23:24)
[2021-01-27] MEDS: ENOXAPARIN 300 MG/3 ML (LOVENOX) MULTI-DOSE VIAL SQ SCH (17:14)
[2021-01-27] MEDS: NS IV 1000 ML 1,000 ML IV SCH ×2 (17:14→23:24)
[2021-01-27] MEDS ORDERED: HYDROcodone/APAP 5 MG/325 MG (LORTAB) TAB ONE (19:03)
[2021-01-27] MEDS: HYDROcodone/APAP 5 MG/325 MG (LORTAB) TAB PO PRN (19:05)
[2021-01-27 19:59] VITALS: BP 172/127
[2021-01-27] MEDS: NS IV SCH ×2 (20:31)
[2021-01-27] MEDS: SOLU MEDROL IV SCH ×2 (20:31)
[2021-01-27 21:00] VITALS: BP 168/115
[2021-01-27] MEDS: RT-ALBUTEROL/IPRATROPIUM 3 ML (DUONEB) VIAL INH SCH (21:32)
[2021-01-27] MEDS: VANCOMYCIN 2000 MG/NS 500 ML IVPB IV SCH ×2 (23:24)
[2021-01-28] VITALS (10 sets, daily range): BP systolic 136–182; BP diastolic 97–126
[2021-01-28] MEDS: RT-ALBUTEROL/IPRATROPIUM 3 ML (DUONEB) VIAL INH SCH ×4 (02:41→21:38)
[2021-01-28] MEDS: HYDROcodone/APAP 5 MG/325 MG (LORTAB) TAB PO PRN ×3 (02:47→18:07)
[2021-01-28] MEDS: NS IV 1000 ML 1,000 ML IV SCH ×3 (04:05→21:31)
[2021-01-28 04:09] LABS: BASOPHILS % (AUTO) 0 % (0-10); EOSINOPHILS % (AUTO) 0 % (0-10); HEMATOCRIT 25 % (35-52); LYMPHOCYTES # (AUTO) 0.8 10^3/uL (1.0-4.0); LYMPHOCYTES % (AUTO) 5 % (12-44); MEAN CORPUSCULAR HEMOGLOBIN 23 pg (25-34); MEAN CORPUSCULAR HGB CONC 27 g/dL (32-36); MEAN CORPUSCULAR VOLUME 84 fL (80-99); MEAN PLATELET VOLUME 9.7 fL (9.0-12.2); MONOCYTES # (AUTO) 0.1 10^3/uL (0.0-1.0); MONOCYTES % (AUTO) 1 % (0-12); NEUTROPHILS % (AUTO) 82 % (42-75); PLATELET COUNT 397 10^3/uL (130-400); WHITE BLOOD COUNT 18.3 10^3/uL (4.3-11.0)
[2021-01-28 04:25] LABS: HEMOGLOBIN 6.8 g/dL (11.5-16.0)
[2021-01-28] MEDS: CEFEPIME 1,000 MG/SWFI 10 ML IV PUSH IV SCH ×8 (05:19→22:05)
[2021-01-28] MEDS: ENOXAPARIN 300 MG/3 ML (LOVENOX) MULTI-DOSE VIAL SQ SCH ×2 (05:20→17:08)
[2021-01-28] MEDS ORDERED: NS IV 500 ML 500 ML IV SCH (05:45)
[2021-01-28] MEDS: ASPIRIN E.C. 81 MG (ECOTRIN) TAB PO SCH (08:15)
[2021-01-28] MEDS ORDERED: FUROSEMIDE 40 MG/4 ML INJ (LASIX) IVP SCH (09:00)
[2021-01-28] MEDS: NS IV SCH ×4 (09:47→20:34)
[2021-01-28] MEDS: SOLU MEDROL IV SCH ×4 (09:47→20:34)
--- NOTE | 2021-01-28 10:35 | Diagnostic Imaging Report ---
EXAMINATION: Chest 1 view HISTORY: Follow-up. Heart failure. COMPARISON: 01/27/2021. FINDINGS: There is marked cardiomegaly with central pulmonary vascular congestion and interstitial edema. There is slight improved aeration in the right midlung. No large pleural effusion or pneumothorax. IMPRESSION: 1. Slightly improved aeration in the right midlung with continued cardiomegaly and central pulmonary vascular congestion with interstitial edema. Dictated by: Dictated on workstation # [id number]
[2021-01-28 12:08] LABS: ALBUMIN 2.7 GM/DL (3.2-4.5); CHLORIDE 112 MMOL/L (98-107); SODIUM 141 MMOL/L (135-145)
[2021-01-28 12:09] LABS: CALCIUM 7.9 MG/DL (8.5-10.1)
[2021-01-28 12:10] LABS: GLUCOSE 255 MG/DL (70-105); TOTAL PROTEIN 5.5 GM/DL (6.4-8.2)
[2021-01-28 12:11] LABS: CARBON DIOXIDE 14 MMOL/L (21-32)
[2021-01-28 12:12] LABS: BILIRUBIN,TOTAL 0.2 MG/DL (0.1-1.0)
[2021-01-28 12:14] LABS: ALKALINE PHOSPHATASE 76 U/L (40-136); CREATININE SERUM 0.94 MG/DL (0.60-1.30); GFR ESTIMATED > 60
[2021-01-28 12:15] LABS: BUN/CREATININE RATIO 18
[2021-01-28 12:17] LABS: ALANINE AMINOTRANSFERASE 12 U/L (0-55)
--- NOTE | 2021-01-28 12:48 | History & Physical-Hospitalist ---
History of Present Illness HPI/Chief Complaint Shortness of breath. Source: patient, RN notes reviewed Date Seen 01/28/21 Time Seen by a Provider: 12:43 Attending Physician Joy Ngueyn MD PCP No,Local Physician Referring Physician Date of Admission Jan 27, 2021 at 10:48 Home Medications & Allergies Home Medications Reviewed patient Home Medication Reconciliation performed by pharmacy medication reconciliations prosthetics technician and/or nursing. Patients Allergies have been reviewed. Allergies Allergies Coded Allergies No Known Drug Allergies (Unverified09/16/17) Past Yykgihq-Fmlzgf-Hhiqhn Hx Patient Social History Marrital Status: Tobacco Use?: No Smoking Status: Former Smoker Substance use?: No Alcohol Use?: No Pt feels they are or have been: No Immunizations Up To Date First/Initial COVID19 Vaccinat: OCTOBER Second COVID19 Vaccination Fermin: october Tetanus Booster (TDap): Unknown Seasonal Allergies Seasonal Allergies: No Current Status Advance Directives: No Communicates: Verbally Primary Language: Indonesian Preferred Spoken Language: Indonesian Is interpretation needed?: No Past Medical History Surgeries: Tonsillectomy Hypertension Diabetes, Non-Insulin dep Blood Disorders: No Family Medical History Heart Disease, Cancer, CAD Over 55 Years Old, Hypertension Review of Systems Constitutional: No chills, No diaphoresis, No fever EENTM: No ear discharge, No hearing loss, No ear pain Respiratory: dyspnea on exertion, short of breath, wheezing Cardiovascular: edema Gastrointestinal: No abdominal pain, No constipation Genitourinary: No decreased output, No discharge Musculoskeletal: back pain, muscle stiffness Skin: No change in color, No change in hair/nails, No rash Psychiatric/Neurological: Anxiety Physical Exam Physical Exam Vital Signs Vital Signs - First Documented 01/27/21 07:47 Temp 36.1 Pulse 115 Resp 20 B/P (MAP) 178/112 (134) Pulse Ox 94 O2 Delivery Nasal Cannula Capillary Refill : Less Than 3 Seconds Height, Weight, BMI Height: 5'2.00" Weight: 280lbs. 0.0oz. 127.910766in; 52.92 BMI Method:Stated General Appearance: WD/WN, Obese, Other (slightly tachypneic) Eyes: Bilateral Eye Normal Inspection, Bilateral Eye PERRL HEENT: PERRL/EOMI, Moist Mucous Membranes Neck: Full Range of Motion, Normal Inspection Respiratory: Chest Non Tender, Normal Breath Sounds, Decreased Breath Sounds, Other (mild respiratory distress) Cardiovascular: Regular Rate, Rhythm, No Edema, No Murmur, Normal Peripheral Pulses Gastrointestinal: Normal Bowel Sounds Extremity: Normal Capillary Refill, Pedal Edema, Other (several wound with dr gupta on bilateral legs) Neurologic/Psychiatric: Alert, Oriented x3, No Motor/Sensory Deficits, Normal Mood/Affect Skin: Normal Color, Warm/Dry Results Results/Procedures Labs Laboratory Tests 01/27/21 07:55 01/28/21 03:17 Patient resulted labs reviewed. Assessment/Plan Admission Diagnosis Respiratory failure. Admission Status: Inpatient Order (span 2 midnights) Reason for Inpatient Admission: Acute respiratory failure. Assessment and Plan 1. Respiratory failure with hypoxia- Uncertain cause. Right middle infiltrate vs. pulmonary edema. Requiring oxygen down from 6 liters on admission to 3 l iters now. Currently able to take it off to eat and keep saturations above 95%. 2. HCAP- Currently on day 2 of vancomycin and cefepime. On methylprednisolone 500 IB BID. White count trending down. Lactic acid normal. Afebrile. 3. Pulmonary edema- Diuresed with lasix. good output. Cardiology consulted and managing. 4. New onset diabetes- Will resume levemir 10 units with breakfast and 30 units at night. Will start accuchecks AC and HS. 5. Elevated troponin- Cardiology following. No chest pain. JOY NGUYEN MD Jan 28, 2021 12:48
[2021-01-28] MEDS: VANCOMYCIN 2000 MG/NS 500 ML IVPB IV SCH ×4 (12:50→23:33)
--- NOTE | 2021-01-28 13:17 | Cardiology Progress Note ---
Progress Note-Cardiology Events since last exam Date Seen by Provider: Jan 28, 2021 Time Seen by Provider: 13:12 Events since last exam We are seeing her due to acute on chronic diastolic heart failure and elevated troponin level. She is much more awake and alert today. She states her breathing is improved. She denies chest discomfort. She denies palpitations or syncope. She still has mild ankle edema. She does not recall having any chest discomfort yesterday before her breathing became tenuous and her called the ambulance. I told her we might need to do a stress test and she refuses to have a pharmacological stress test. Certain portions of this document may have been dictated utilizing voice recognition technology. Inherent to this technology, typographical and grammatical errors may exist. As much as I am diligent to identify and correct these mistakes, some errors may remain in the document. Vitals Last set of Vitals Signs Vital Signs 01/28/21 01/28/21 12:00 12:44 Temp 36.7 Pulse 115 Resp 21 B/P (MAP) 166/117 (133) Pulse Ox 98 O2 Delivery Nasal Cannula O2 Flow Rate 3.00 Labs Labs Laboratory Tests 01/28/21 03:17 Exam Vital Signs Vital Signs Date Time Temp Pulse Resp B/P (MAP) Pulse Ox O2 Delivery O2 Flow Rate FiO2 01/28/21 12:44 115 01/28/21 12:00 36.7 21 166/117 (133) 98 Nasal Cannula 3.00 Physical Exam General: Alert. No acute distress. She is morbidly obese. Eye: No xanthelasma. HENT: Normocephalic. Neck: Jugular venous pressure does not appear elevated. Respiratory: Lungs are clear to auscultation. Respirations are non-labored. Breath sounds are equal. Symmetrical chest wall expansion. Cardiovascular: Normal rate. Regular rhythm. 2/6 systolic ejection murmur. No gallop. 1+ bilateral pretibial edema with bandages and areas of erythema. Gastrointestinal: Soft. Normal bowel sounds. Skin: Warm. Dry. Neurologic: Alert and oriented to person, place, time. Cranial nerves 3-11 grossly intact. Psychiatric: Cooperative. Appropriate mood & affect. Labs Laboratory Tests Test 01/27/21 14:00 01/27/21 16:25 01/28/21 03:17 Range/Units Blood Gas Puncture Site R RAD Blood Gas Patient Temperature 37.0 Arterial Blood pH 7.38 7.37-7.43 Arterial Blood Partial Pressure CO2 31 L 35-45 MMHG Arterial Blood Partial Pressure O2 82 79-93 MMHG Arterial Blood HCO3 18 L 23-27 MMOL/L Arterial Blood Total CO2 18.7 L 21.0-31.0 MMOL/L Arterial Blood Oxygen Saturation 95 94-100 % Arterial Blood Base Excess -6.5 L -2.5-2.5 MMOL/L Denilson Test YES-POS Blood Gas Ventilator Setting NO Blood Gas Inspired Oxygen 6L Lactic Acid Level 1.15 0.50-2.00 MMOL/L Troponin I 0.140 H <0.028 NG/ML Triglycerides Level 248 H <150 MG/DL Cholesterol Level 235 H < 200 MG/DL LDL Cholesterol Direct 180 H 1-129 MG/DL VLDL Cholesterol 50 H 5-40 MG/DL HDL Cholesterol 29 L 40-60 MG/DL White Blood Count 18.3 H 4.3-11.0 10^3/uL Red Blood Count 2.98 L 3.80-5.11 10^6/uL Hemoglobin 6.8 *L 11.5-16.0 g/dL Hematocrit 25 L 35-52 % Mean Corpuscular Volume 84 80-99 fL Mean Corpuscular Hemoglobin 23 L 25-34 pg Mean Corpuscular Hemoglobin Concent 27 L 32-36 g/dL Red Cell Distribution Width 27.0 H 10.0-14.5 % Platelet Count 397 130-400 10^3/uL Mean Platelet Volume 9.7 9.0-12.2 fL Immature Granulocyte % (Auto) 13 % Neutrophils (%) (Auto) 82 H 42-75 % Lymphocytes (%) (Auto) 5 L 12-44 % Monocytes (%) (Auto) 1 0-12 % Eosinophils (%) (Auto) 0 0-10 % Basophils (%) (Auto) 0 0-10 % Neutrophils # (Auto) 15.0 H 1.8-7.8 10^3/uL Lymphocytes # (Auto) 0.8 L 1.0-4.0 10^3/uL Monocytes # (Auto) 0.1 0.0-1.0 10^3/uL Eosinophils # (Auto) 0.0 0.0-0.3 10^3/uL Basophils # (Auto) 0.0 0.0-0.1 10^3/uL Immature Granulocyte # (Auto) 2.3 H 0.0-0.1 10^3/uL Sodium Level 141 135-145 MMOL/L Potassium Level 5.0 3.6-5.0 MMOL/L Anion Gap 15 H 5-14 MMOL/L Blood Urea Nitrogen 17 7-18 MG/DL Creatinine 0.94 0.60-1.30 MG/DL Estimat Glomerular Filtration Rate > 60 BUN/Creatinine Ratio 18 Glucose Level 255 H 70-105 MG/DL Calcium Level 7.9 L 8.5-10.1 MG/DL Corrected Calcium 8.9 8.5-10.1 MG/DL Total Bilirubin 0.2 0.1-1.0 MG/DL Aspartate Amino Transf (AST/SGOT) 17 5-34 U/L Alanine Aminotransferase (ALT/SGPT) 12 0-55 U/L Alkaline Phosphatase 76 40-136 U/L Total Protein 5.5 L 6.4-8.2 GM/DL Albumin 2.7 L 3.2-4.5 GM/DL Diagnosis/Problems Diagnosis/Problems (1) Troponin level elevated Assessment & Plan: This could be a type II non-ST elevation myocardial infarction due to supply/demand mismatch from her acute respiratory decompensation and ongoing tachycardia. However, she was also having some ill described chest discomfort. Her chest discomfort has now resolved. I started her on aspirin. I will add an beta-hiram and statin medication. We will proceed with an echocardiogram tomorrow. I had originally ordered it for her today but I do not see any urgent need for the echocardiogram now that her respiratory status has improved. We may need to consider further evaluation with a cardiac catheterization. (2) Chest pain Assessment & Plan: Etiology unclear. I suspect this could be multifactorial related to her chronic respiratory failure and musculoskeletal disorder related to morbid obesity and difficult transfers. We will proceed as above. (3) Acute on chronic diastolic heart failure Assessment & Plan: Her breathing and chest x-ray have both improved. I will increase her dose of furosemide. We will need to monitor renal function clos jarad. (4) Essential hypertension Assessment & Plan: I have started her on beta-hiram due to the possible NSTEMI and heart failure. I would rather titrate up the beta-hiram then restart her amlodipine. (5) Mixed hyperlipidemia Assessment & Plan: Her cholesterol level is very high. I will start her on moderate dose of rosuvastatin. This will need to be followed after discharge. (6) Morbid obesity Assessment & Plan: Her obesity is most likely leading to the majority of her medical conditions. Once she gets through this acute illness, I would consider referral to a bariatric surgeon. ENOC LAWSON JR, MD Jan 28, 2021 13:17
[2021-01-28] MEDS: FUROSEMIDE 40 MG/4 ML INJ (LASIX) IVP SCH (17:08)
[2021-01-28] MEDS: ROSUVASTATIN 20 MG (CRESTOR) TABLET PO SCH (20:35)
[2021-01-29] VITALS (16 sets, daily range): BP systolic 100–170; BP diastolic 2–120
[2021-01-29] MEDS: RT-ALBUTEROL/IPRATROPIUM 3 ML (DUONEB) VIAL INH SCH ×3 (02:38→22:04)
[2021-01-29] MEDS: NS IV 1000 ML 1,000 ML IV SCH ×4 (03:53→20:28)
[2021-01-29 04:16] LABS: BASOPHILS % (AUTO) 0 % (0-10); EOSINOPHILS % (AUTO) 0 % (0-10); HEMATOCRIT 27 % (35-52); HEMOGLOBIN 7.5 g/dL (11.5-16.0); LYMPHOCYTES # (AUTO) 0.3 10^3/uL (1.0-4.0); LYMPHOCYTES % (AUTO) 2 % (12-44); MEAN CORPUSCULAR HEMOGLOBIN 23 pg (25-34); MEAN CORPUSCULAR HGB CONC 28 g/dL (32-36); MEAN CORPUSCULAR VOLUME 83 fL (80-99); MEAN PLATELET VOLUME 9.6 fL (9.0-12.2); MONOCYTES # (AUTO) 0.3 10^3/uL (0.0-1.0); MONOCYTES % (AUTO) 2 % (0-12); NEUTROPHILS # (AUTO) 10.3 10^3/uL (1.8-7.8); NEUTROPHILS % (AUTO) 87 % (42-75); PLATELET COUNT 353 10^3/uL (130-400); WHITE BLOOD COUNT 11.8 10^3/uL (4.3-11.0)
[2021-01-29 04:34] LABS: ALBUMIN 2.8 GM/DL (3.2-4.5)
[2021-01-29 04:35] LABS: POTASSIUM 3.9 MMOL/L (3.6-5.0)
[2021-01-29 04:36] LABS: CALCIUM 7.2 MG/DL (8.5-10.1)
[2021-01-29 04:39] LABS: BILIRUBIN,TOTAL 0.2 MG/DL (0.1-1.0)
[2021-01-29 04:41] LABS: CREATININE SERUM 1.19 MG/DL (0.60-1.30)
[2021-01-29] MEDS: CEFEPIME 1,000 MG/SWFI 10 ML IV PUSH IV SCH ×8 (06:11→22:11)
[2021-01-29] MEDS: FUROSEMIDE 40 MG/4 ML INJ (LASIX) IVP SCH ×2 (06:11→18:24)
[2021-01-29] MEDS: ENOXAPARIN 300 MG/3 ML (LOVENOX) MULTI-DOSE VIAL SQ SCH (06:14)
--- NOTE | 2021-01-29 07:17 | Progress Note ---
Standard Progress Note HPI/CC on Admission Shortness of breath. Admitted for shortness of breath and acute hypoxic respiratory failure on 01/27/21- she was discharged from a 2 week stay on 01/26/21 on room air- in which she was treated for severe sepsis due to strep bacteremia, panniculitis, acute hypoxic resp failure, acute on chronic kidney failure, possible e rhlichiosis infection. She was also evaluated for multiple sclerosis- unable to get an MRI due to body habitus. LP showed oligoclonal bands but not definitive for MS. We did do 5 days of high dose steroids without much improvement. She had physical decline for months leading up to the first admit. She was unable to walk on admission and was discharge to home unable to walk- so a ezequiel lift was ordered for home. Progress Notes/Assess & Plan Date Seen 01/29/21 Time Seen by Provider: 07:30 Assess & Plan/Chief Complaint 40 yo F being evaluated for acute respiratory failure. 01/29/21- restarted trazodone to help her sleep. Ordered PT to try and keep her from worsening physically. Will do Fe infusions again. Restarted amlodipine for her elevated blood pressure. May try to change to another class. Wound care dressing changes ordered. Nursing called and informed me of patient's vitals and work of breathing. Will go ahead and order CTA to rule out pulmonary embolism as she has multiple risk factors- sedentary lifestyle, obesity, illness. -stopped vancomycin. Labs Laboratory Tests 01/30/21 02:57 01/31/21 04:40 Focused Exam Lactate Level Respiratory: Chest Non Tender, Lungs Clear, Other (Alert oriented, conversing well; Abdomen soft NTTP Eyes- EOMI ) Cardiovascular: Regular Rate, Rhythm, Tachycardia Skin: warm/dry, ecchymosis Diagnosis/Problems Diagnosis/Problems (1) Acute respiratory failure with hypoxia Assessment & Plan: supportive care- RT, oxygen, diuresing- on vanc/cefepime to cover HCAP (2) Disability due to neurological disorder Assessment & Plan: still unclear on etiology- rechecking erlichiosis panel at end of week to see if she has IgG. Also on high dose steroids to see if this will help - has signs of MS (3) Acute on chronic diastolic heart failure (4) Essential hypertension (5) Chronic kidney disease (6) Obesity hypoventilation syndrome CHAZ ADLER MD Jan 29, 2021 07:17
[2021-01-29] MEDS: DOXYCYCLINE 100 MG (VIBRAMYCIN) TABLET PO SCH ×3 (08:06→18:35)
[2021-01-29] MEDS: ASPIRIN E.C. 81 MG (ECOTRIN) TAB PO SCH (08:06)
[2021-01-29] MEDS: HYDROcodone/APAP 5 MG/325 MG (LORTAB) TAB PO PRN (08:07)
[2021-01-29] MEDS: NS IV SCH ×4 (08:07→22:10)
[2021-01-29] MEDS: SOLU MEDROL IV SCH ×4 (08:07→22:10)
--- NOTE | 2021-01-29 08:31 | Cardiology Progress Note ---
Progress Note-Cardiology Events since last exam Date Seen by Provider: Jan 29, 2021 Time Seen by Provider: 08:26 Events since last exam We are seeing her due to heart failure and elevated troponin level. She was sitting up in bed eating breakfast. Subjectively she states her breathing feels about the same as yesterday however, her oxygen requirements have gone down. She denies chest pain, palpitations, or syncope. Her peripheral edema is about the same. Vitals Last set of Vitals Signs Vital Signs 01/29/21 08:14 Temp 36.4 Pulse 94 Resp 20 B/P (MAP) 146/104 (118) Pulse Ox 96 O2 Delivery Nasal Cannula O2 Flow Rate 3.00 Labs Labs Laboratory Tests 01/29/21 03:55 Exam Vital Signs Vital Signs Date Time Temp Pulse Resp B/P (MAP) Pulse Ox O2 Delivery O2 Flow Rate FiO2 01/29/21 08:14 36.4 94 20 146/104 (118) 96 Nasal Cannula 3.00 Physical Exam General: Alert. No acute distress.She is morbidly obese. Eye: No xanthelasma. HENT: Normocephalic. Neck: Jugular venous pressure does not appear elevated. Respiratory: Lungs are clear to auscultation. Respirations are non-labored. Breath sounds are equal. Symmetrical chest wall expansion. Cardiovascular: Normal rate. Regular rhythm. No murmur. No gallop. 2+ bilateral pretibial edema with some focal areas of erythema. Gastrointestinal: Soft. Normal bowel sounds. Skin: Warm. Dry. Neurologic: Alert and oriented to person, place, time. Cranial nerves 3-11 grossly intact. Psychiatric: Cooperative. Appropriate mood & affect. Labs Laboratory Tests Test 01/28/21 15:26 01/28/21 20:57 01/29/21 03:55 Range/Units Glucometer 300 H 323 H 70-110 MG/DL White Blood Count 11.8 H 4.3-11.0 10^3/uL Red Blood Count 3.20 L 3.80-5.11 10^6/uL Hemoglobin 7.5 L 11.5-16.0 g/dL Hematocrit 27 L 35-52 % Mean Corpuscular Volume 83 80-99 fL Mean Corpuscular Hemoglobin 23 L 25-34 pg Mean Corpuscular Hemoglobin Concent 28 L 32-36 g/dL Red Cell Distribution Width 26.6 H 10.0-14.5 % Platelet Count 353 130-400 10^3/uL Mean Platelet Volume 9.6 9.0-12.2 fL Immature Granulocyte % (Auto) 8 % Neutrophils (%) (Auto) 87 H 42-75 % Lymphocytes (%) (Auto) 2 L 12-44 % Monocytes (%) (Auto) 2 0-12 % Eosinophils (%) (Auto) 0 0-10 % Basophils (%) (Auto) 0 0-10 % Neutrophils # (Auto) 10.3 H 1.8-7.8 10^3/uL Lymphocytes # (Auto) 0.3 L 1.0-4.0 10^3/uL Monocytes # (Auto) 0.3 0.0-1.0 10^3/uL Eosinophils # (Auto) 0.0 0.0-0.3 10^3/uL Basophils # (Auto) 0.0 0.0-0.1 10^3/uL Immature Granulocyte # (Auto) 1.0 H 0.0-0.1 10^3/uL Sodium Level 142 135-145 MMOL/L Potassium Level 3.9 3.6-5.0 MMOL/L Chloride Level 112 H 98-107 MMOL/L Carbon Dioxide Level 18 L 21-32 MMOL/L Anion Gap 12 5-14 MMOL/L Blood Urea Nitrogen 24 H 7-18 MG/DL Creatinine 1.19 0.60-1.30 MG/DL Estimat Glomerular Filtration Rate 51 BUN/Creatinine Ratio 20 Glucose Level 314 H 70-105 MG/DL Calcium Level 7.2 L 8.5-10.1 MG/DL Corrected Calcium 8.2 L 8.5-10.1 MG/DL Total Bilirubin 0.2 0.1-1.0 MG/DL Aspartate Amino Transf (AST/SGOT) 7 5-34 U/L Alanine Aminotransferase (ALT/SGPT) 12 0-55 U/L Alkaline Phosphatase 73 40-136 U/L Total Protein 5.0 L 6.4-8.2 GM/DL Albumin 2.8 L 3.2-4.5 GM/DL Diagnosis/Problems Diagnosis/Problems (1) Troponin level elevated Assessment & Plan: This could be a type II non-ST elevation myocardial infarction due to supply/demand mismatch from her acute respiratory decompensation and ongoing tachycardia. However, she was also having some ill described chest discomfort. Her chest discomfort has now resolved. I started her on aspirin, beta-hiram, and statin medication. Today I discovered she just had an echocardiogram on January 08 and this showed a normal ejection fraction. As such, I will not repeat the echocardiogram. For the time being, we will continue with medical management. I have added another troponin level to the blood sample from this morning. Given her morbid obesity, she would not be an ideal candidate for a stress test as she may not fit inside to the nuclear camera. I suspect she would not want an invasive cardiac evaluation due to lack of insurance and cost of the procedure. If her troponin level is even higher today, we may need to revisit this. (2) Chest pain Assessment & Plan: Etiology unclear. I suspect this could be multifactorial related to her chronic respiratory failure and musculoskeletal disorder related to morbid obesity and difficult transfers. Her chest discomfort has now improved. Plan as above. (3) Acute on chronic diastolic heart failure Assessment & Plan: Her breathing and chest x-ray had both improved on 01/28. I increased her dose of diuretic to twice daily dosing on 01/28. Her creatinine le higinio has gone up slightly today. If her creatinine continues to climb, we will need to back on the diuretic dosage. If possible, I would consider adding spironolactone prior to discharge. (4) Essential hypertension Assessment & Plan: I have started her on beta-hiram due to the possible NSTEMI and heart failure. Her blood pressures are still intermittently elevated. If this persists, I would recommend increasing the beta-hiram. Amlodipine could be contributing to her peripheral edema. I would rather not restart this medication that she was taking at home. (5) Mixed hyperlipidemia Assessment & Plan: Her cholesterol level is very high. I started her on rosuvastatin. This will need to be followed after discharge. (6) Morbid obesity Assessment & Plan: Her obesity is most likely leading to the majority of her medical conditions. Once she gets through this acute illness, I would consider referral to a bariatric surgeon. ENOC LAWSON JR, MD Jan 29, 2021 08:31
--- NOTE | 2021-01-29 08:49 | Physician Query Clarification ---
PQ-Uncertain Diagnosis Admission/Discharge Admission Date: Jan 27, 2021 at 10:48 Discharge Date: Dr. Nguyen, The medical record reflects the following clinical scenario: History/Risk Factors: acute respiratory failure w/hypoxia, pneumonia, acute on chronic diastolic CHF, HTN, CKD, Kaveh cellulitis lower ext, OHS Clinical Findings: T 36.1, P 115, R 20, WBC 21.0, Lactic acid 0.140 Treatment: IV Cefepime, IV Vancomycin Question: Is sepsis a clinically valid diagnosis? Sepsis was documented in the ER record with no further documentation in the medical record. Please document a response in Progress Note or Discharge Summary. 1. Yes, clinically valid, condition resolved. 2. No, condition ruled out. 3. Other, with explanation of clinical findings. 4. Undetermined, no explanation for clinical findings. PHYSICIAN RESPONSE Diagnosis clinically valid: Yes, Conditon resolved Please remember a lack of response to the above will prompt a phone page by [facility]/Coding staff. In responding to this query, please exercise your independent professional judgment. The purpose of this communication is to more accurately reflect the complexity of your patients condition. The fact that a question is asked does not imply that any particular answer is desired or expected. Thank you for your timely response to this clarification. Requestors name: Yanni THIS PHYSICIAN QUERY FORM IS A PERMANENT PART OF THE MEDICAL RECORD YANNI DRUANT Jan 29, 2021 08:49 JOY NGUYEN MD Jan 29, 2021 10:03
--- NOTE | 2021-01-29 08:54 | Physician Query Clarification ---
PQ-Further Specificity Admission/Discharge Admission Date: Jan 27, 2021 at 10:48 Discharge Date: Dr. Gutiérrez, The medical record reflects the following clinical scenario: History/Risk Factors: Pneumonia, acute respiratory failure w/hypoxia, acute on chronic diastolic CHF Clinical Findings: Troponin 0.140 Treatment: ASA, Beta-hiram and Statin medications, 2D echo to be done Question: Can you further specify the elevated troponin per the clinical indicators above? Please document a response in the Progress Notes or Discharge Summary. 1. NM type 2 2. NSTEMI 3. Other, with explanation of the clinical findings. 4. Clinically undetermined, no explanation for the clinical findings. PHYSICIAN RESPONSE Can you specify per above: Clinically undetermined Please remember a lack of response to the above will prompt a phone page by CD[facility]/Coding staff. In responding to this query, please exercise your independent professional judgment. The purpose of this communication is to more accurately reflect the complexity of your patients condition. The fact that a question is asked does not imply that any particular answer is desired or expected. Thank you for your timely response to this clarification. Requestors name: Yanni THIS PHYSICIAN QUERY FORM IS A PERMANENT PART OF THE MEDICAL RECORD YANNI DURANT Jan 29, 2021 08:54 ENOC GUTIÉRREZ JR, MD Jan 29, 2021 11:00
[2021-01-29] MEDS ORDERED: PHEN37.58 PO (10:50)
[2021-01-29] MEDS ORDERED: EMPA1TAB32 PO (10:50)
[2021-01-29] MEDS ORDERED: METO50TA7 PO (10:50)
[2021-01-29] MEDS ORDERED: DOXE10CA29 PO (10:50)
[2021-01-29] MEDS ORDERED: FENT1PAT8 TD (10:50)
[2021-01-29] MEDS: VANCOMYCIN 2000 MG/NS 500 ML IVPB IV SCH ×4 (11:00→22:53)
[2021-01-29] MEDS ORDERED: amLODIPine 10 MG (NORVASC) TAB PO NR (12:45)
[2021-01-29] MEDS ORDERED: IOHEXOL 350 MG/ML 100 ML (OMNIPAQUE 350) VIAL IV ONE (13:00)
[2021-01-29] MEDS ORDERED: NS 100 ML (IVPB) BAG IV ONE (13:00)
[2021-01-29] MEDS ORDERED: HOLD METFORMIN - RECEIVED CONTRAST 20 ML VIAL IV SCH (13:00)
[2021-01-29] MEDS ORDERED: CATHETER FLUSH 10 ML SYR IV PRN (13:00)
[2021-01-29] MEDS: IRON SUCROSE 200 MG/10 ML (VENOFER) VIAL IV SCH (13:14)
--- NOTE | 2021-01-29 14:07 | Physical Therapy Progress Note ---
Therapy Progress Note Chart reviewed. Unable to evaluate this date as patient gone for CT scan. Plan to do therapy assessment 01/30/21. DIAMOND WU PT Jan 29, 2021 14:07
[2021-01-29 14:29] LABS: ABG BASE EXCESS -12.8 MMOL/L (-2.5-2.5); ABG OXYGEN SATURATION 100 % (94-100); ABG PCO2 44 MMHG (35-45); ABG PO2 423 MMHG (79-93); ABG TCO2 15.7 MMOL/L (21.0-31.0)
[2021-01-29] MEDS ORDERED: PROPOFOL DRIP (ICU) 100 ML IV ONE (14:38)
[2021-01-29 14:44] LABS: ABG PH 7.14 (7.37-7.43); ALLENS TEST POSITIVVE; INSPIRED O2 15L HF; PATIENT TEMP 37.4; VENTILATOR NO
--- NOTE | 2021-01-29 15:23 | Diagnostic Imaging Report ---
INDICATION: Post intubation. FINDINGS: ET tube is in good position in the lower thoracic trachea. There is a right IJ at the SVC. There is substantial enlargement of the cardiac silhouette. Mediastinal and hilar contour evaluation is limited by significant rightward rotation. No pneumothorax. IMPRESSION: 1. Extensive enlargement of the cardiac silhouette, not obviously changed given rightward rotation. 2. A right IJ catheter and an ET tube have been placed in good position with no pneumothorax or other complicating feature. Dictated by: Dictated on workstation # [id number]
--- NOTE | 2021-01-29 15:25 | Procedure/Intervention Note ---
Procedures/Interventions Lumen: triple Central Line Procedure: betadine prep, sterile drapes applied, sterile dressing applied Position: internal jugular (R) Volume Anesthetic (ccs): 4 Complications: none Post Position: sutured, good blood return, position confirmed w/ CXR Date of ETT Placement: Jan 29, 2021 Time of ETT Placement: 14:30 Intubation Method: orotracheal Tube Size: 7.50 Medications: Etomidate (10mg), Rocuronium Positive End Tide CO2: Yes Breath Sounds after Intubation: bilateral-equal Intubation Complications: no complications Post Intubation Xray: Yes At approximately 1400 I was called emergently to the CT department where patient was on the CT table to evaluate for pulmonary embolism given a rapidly declining respiratory status as noted on the fourth medical floor. Upon arrival patient was tachypneic and hypoxic at 80% nonrebreather. ABG was obtained. We initiated BiPAP at 15/5 100% FiO2, removed her from the CT table back to the bed and transferred her up to the intensive care unit. She was lethargic and moaned to painful stimuli only. Decided to proceed with intubation for airway protection and respiratory failure. She was sedated and paralyzed with 10 mg of etomidate and 50 mg of rocuronium. 7.5 endotracheal tube was slid between the vocal cords. Once the balloon had passed the cords the balloon was inflated. This was 23 cm at the teeth. There was color change on the colorimeter, fogging the tube and bilateral breath sounds with maintenance of oxygen saturation at 97%. She does desaturate when laying flat. Due to poor IV access she has a single-lumen IV midline right upper arm. Decided to proceed with triple-lumen central line placement sterile technique ultrasound-guided right internal jugular. Patient was given propofol for sedation as she was quite hypertensive. She was tachycardic in the 130s sinus, hypertensive at about 170/100. She was also given a dose of fentanyl 100 mcg and Versed 5 mg to supplement the propofol drip at 40 mcg/kg/min. Chest x-ray was obtained after intubation and central line placement showing severe cardiomegaly no pneumothorax. Tube is in good position as is the central line. Blood pressure upon me leaving the department was 130/100. Heart rate was 120 sinus. I notified her primary care provider Dr. Maxi Soni of the need for transfer for medical floor up to ICU and the plan to intubate and central line. Further care to be directed by him and eICU. Suture Size: 2-0 CONSTANCE URENA APRN Jan 29, 2021 15:25
[2021-01-29] MEDS ORDERED: fentaNYL INJ 100 MCG/2 ML AMP ONE (15:55)
[2021-01-29] MEDS ORDERED: LORazepam INJ 2 MG/ML (ATIVAN) VIAL IVP NR (16:00)
[2021-01-29] MEDS ORDERED: LORazepam INJ 2 MG/ML (ATIVAN) VIAL ONE (16:01)
[2021-01-29] MEDS: fentaNYL INJ 100 MCG/2 ML AMP IVP PRN ×2 (16:12→22:49)
--- NOTE | 2021-01-29 16:25 | Tele-ICU Consult ---
History of Present Illness History of Present Illness Date Seen by Provider: Jan 29, 2021 Time Seen by Provider: 16:24 Date of Admission Allergies and Home Medications Allergies Coded Allergies: No Known Drug Allergies (Unverified , 09/16/17) Home Medications Acetaminophen 325 Mg Tablet, 650 MG PO Q6H PRN for PAIN-MILD (1-4), (Reported) TAKES 2 (325MG) TABLETS Amlodipine Besylate 10 Mg Tablet, 10 MG PO DAILY, (Reported) Aspirin 81 Mg Tablet.dr, 81 MG PO DAILY, (Reported) Doxepin HCl 10 Mg Capsule, 10 MG PO HS, (Reported) Empaglifloz/Linaglip/Metformin 1 Each Tab.bp.24h, 1 EACH PO DAILY, (Reported) Fentanyl 1 Each Patch.td72, 25 MCG TD Q72H, (Reported) Furosemide 20 Mg Tablet, 20 MG PO DAILY, (Reported) Hydrocodone/Acetaminophen 1 Each Tablet, 1 TAB PO Q8H PRN for PAIN-MODERATE (5- 7), (Reported) Metformin HCl 500 Mg Tablet, 500 MG PO BID PRN for WHEN OUT OF TRIJARDY SAMPLES, (Reported) Metoprolol Succinate 50 Mg Tab.er.24h, 50 MG PO BID, (Reported) Multivitamin 1 Each Tablet, 1 EACH PO DAILY, (Reported) Phentermine HCl 37.5 Mg Tablet, 37.5 MG PO DAILY, (Reported) Past Medical/Social/Family Hx Patient Social History Marrital Status: Tobacco Use?: No Smoking Status: Former Smoker Substance use?: No Alcohol Use?: No Pt stated abuse/neglect: No Immunizations Up To Date Influenza Vaccine Up-to-Date: Yes; Up-to-Date First/Initial COVID19 Vaccinat: OCTOBER Second COVID19 Vaccination Fermin: october Tetanus Booster (TDap): Unknown Current Status Advance Directives: No Communicates: Verbally Primary Language: Romanian Preferred Spoken Language: Romanian Is interpretation needed?: No Review of Systems Constitutional: see HPI Sepsis Event Evaluation Height, Weight, BMI Height: 5'2.00" Weight: 280lbs. 0.0oz. 127.646884ql; 52.92 BMI Method:Stated Exam Exam Patient acknowledged, consented, and participated in this virtual visit which was conducted using real time audio/video Vital Signs Date Time Temp Pulse Resp B/P (MAP) Pulse Ox O2 Delivery O2 Flow Rate FiO2 7/19/21 15:31 104 01/29/21 15:31 104 01/29/21 14:52 124 31 91 65 01/29/21 14:45 131 138/108 (118) 97 Mechanical Ventilator 01/29/21 13:11 96 01/29/21 12:23 36.4 98 32 170/120 (137) 92 Nasal Cannula 3.00 01/29/21 12:18 92 Nasal Cannula 3.00 01/29/21 08:58 97 Nasal Cannula 3.00 01/29/21 08:14 36.4 94 20 146/104 (118) 96 Nasal Cannula 3.00 01/29/21 08:00 95 Nasal Cannula 3.00 01/29/21 07:00 98 01/29/21 04:00 98 141/97 (112) 98 Nasal Cannula 3.00 01/29/21 04:00 36.0 Nasal Cannula 3.00 01/29/21 04:00 95 Nasal Cannula 3.00 01/29/21 02:38 95 Nasal Cannula 3.00 01/29/21 01:00 103 01/29/21 00:00 101 21 148/94 (112) 96 Nasal Cannula 3.00 01/28/21 23:59 95 Nasal Cannula 3.00 01/28/21 23:39 36.0 102 24 156/102 (120) Nasal Cannula 3.00 01/28/21 21:39 93 Nasal Cannula 3.50 01/28/21 20:00 110 35 175/114 (134) 96 Nasal Cannula 3.00 01/28/21 20:00 95 Nasal Cannula 3.00 01/28/21 19:42 36.2 115 25 182/118 (139) 96 Nasal Cannula 3.00 01/28/21 19:00 110 01/28/21 16:27 92 Nasal Cannula 3.00 I & O 01/29/21 07:00 Intake Total 5490 ml Output Total 1000 ml Balance 4490 ml Height & Weight Height: 5'2.00" Weight: 280lbs. 0.0oz. 127.765664nq; 52.92 BMI Method:Stated General Appearance: WD/WN, Mild Distress, Obese, Other (slightly tachypneic) HEENT: PERRL/EOMI, Moist Mucous Membranes Neck: Full Range of Motion, Normal Inspection Respiratory: Chest Non Tender, Lungs Clear, Other (Alert oriented, conversing well; Abdomen soft NTTP Eyes- EOMI ) Cardiovascular: Regular Rate, Rhythm, Tachycardia Capillary Refill: Less Than 3 Seconds Extremity: Normal Capillary Refill, Pedal Edema, Other (several wound with dressings on bilateral legs) Neurologic/Psychiatric: Alert, Oriented x3, No Motor/Sensory Deficits, Normal Mood/Affect Skin: Normal Color, Warm/Dry Results Lab Laboratory Tests 01/28/21 03:17 01/29/21 03:55 Assessment/Plan Assessment/Plan Tele-ICU Physician , consultation) Available chart/ vitals / labs / Images reviewed H&P is from ER notes Patient's information available about PMH, Shx, Fhx allergy reviewed in EMR. ROS as per chart and RN report intubated on arrival to ICU, hemodynamically stable Video assessment done using teleICU camera, rest of exam as per RN Discussed with RN. Consultants: cards VENT SETTINGS. AC rr 14 TV 450 ( 8 cc/kg) + 5 50% ABG reviewed A/P Acute resp failure ( on chronic ) hypoxic, hypercarbic - conbination of CHF. p ossibla PNA , receiving opioids po and possible TRALI post transfusion - intubated 01/29 - follow abg , needs more sedation , will cont diuresis, abx HCAP - vancomycin and cefepime - sputum cx ( recent tx for sepsis - cellulitis (vancomycin, zosyn 01/07 AECOPD - on IV steroids Acute on chronic diastolic heart failure -ECHO 01/08 - 55% , RVSP 20 mm - diuresis type II non-STEMI - ECHO pending - will hold lovenox now given anemia and blood transfusion ( 130 bid given this am Anemia - - monitor - for now , w/up as per PCP (received 1 U PCBC 01/28 DMII - as per PCP - no DKA , but significnt hyperglycemia Chtonic hypoxia - VQ neg and LE US neg 01/09/21 an risk for HAILE /OHV UDS positive for opioids and amphetamine -on phentermine for weight loss -on hydrocodone for foot and leg pain rib fx. seen on cxr. - no c/o or history Lines : R IJ 01/29 , (Central Line Necessity Reviewed) Hernandez: + OG: + Nutrition: Analgesia: fentanyl prn Anxiety/ delirium VTE Prophylaxis: hold lovenox 01/29 Stress Ulcer Prophylaxis: PPI Glycemic Control: Plans in collaboration with bedside consultants and IM MDs. Discussed with RN to reach out if any questions or concerns A total of 40 minutes of critical care time was devoted to this patient today, required to treat and/or prevent further deterioration of critical care condition ( as above ) . NOÉ CAO MD Jan 29, 2021 16:25
[2021-01-29 16:52] LABS: ABG BASE EXCESS -8.6 MMOL/L (-2.5-2.5); ABG OXYGEN SATURATION 100 % (94-100); ABG PCO2 30 MMHG (35-45); ABG PO2 171 MMHG (79-93); ABG TCO2 17.2 MMOL/L (21.0-31.0)
[2021-01-29 16:54] LABS: ABG PH 7.34 (7.37-7.43); ALLENS TEST POSITIVE; INSPIRED O2 65%; PATIENT TEMP 96.4; VENTILATOR YES
[2021-01-29 17:18] LABS: BILIRUBIN,URINE NEGATIVE (NEGATIVE); CLARITY,URINE CLOUDY; COLOR,URINE YELLOW; GLUCOSE, URINE (UA) NEGATIVE (NEGATIVE); KETONES,URINE NEGATIVE (NEGATIVE); LEUKOCYTE ESTERASE ,URINE NEGATIVE (NEGATIVE); NITRITE,URINE NEGATIVE (NEGATIVE); PH,URINE 5.5 (5-9); PROTEIN,URINE 2+ (NEGATIVE)
[2021-01-29 17:30] LABS: AMORPHOUS SEDIMENT,UR MOD AMOR URATES /LPF; BACTERIA,URINE FEW /HPF
[2021-01-29] MEDS ORDERED: ENOXAPARIN 60 MG/0.6 ML (LOVENOX) SYR SC SCH (18:00)
[2021-01-29] MEDS: PROPOFOL DRIP (ICU) 100 ML IV SCH ×4 (18:23→23:55)
[2021-01-29] MEDS: inSUlin ASPART (NovoLOG) 1 UNIT/0.01 ML (CHARGE PER UNIT) SQ SCH ×2 (18:24→21:00)
[2021-01-29] MEDS: PANTOPRAZOLE 40 MG (PROTONIX) VIAL IV SCH (20:27)
[2021-01-29] MEDS: ROSUVASTATIN 20 MG (CRESTOR) TABLET PO SCH (20:29)
[2021-01-29] MEDS: traZODone 100 MG (DESYREL) TAB PO SCH (20:30)
[2021-01-30] VITALS (31 sets, daily range): BP systolic 98–142; BP diastolic 75–95
[2021-01-30] MEDS: RT-ALBUTEROL/IPRATROPIUM 3 ML (DUONEB) VIAL INH SCH ×4 (02:11→22:23)
[2021-01-30] MEDS: PROPOFOL DRIP (ICU) 100 ML IV SCH ×9 (02:24→23:16)
[2021-01-30] MEDS: fentaNYL INJ 100 MCG/2 ML AMP IVP PRN ×5 (02:35→17:29)
[2021-01-30 02:56] LABS: ABG BASE EXCESS -7.4 MMOL/L (-2.5-2.5); ABG OXYGEN SATURATION 100 % (94-100); ABG PCO2 32 MMHG (35-45); ABG PH 7.35 (7.37-7.43); ABG PO2 219 MMHG (79-93); ABG TCO2 18.4 MMOL/L (21.0-31.0)
[2021-01-30 03:01] LABS: ALLENS TEST YES-POS
[2021-01-30 03:02] LABS: PATIENT TEMP 35.9; VENTILATOR YES
[2021-01-30 03:11] LABS: BASOPHILS % (AUTO) 0 % (0-10); EOSINOPHILS % (AUTO) 0 % (0-10); HEMATOCRIT 27 % (35-52); HEMOGLOBIN 7.6 g/dL (11.5-16.0); LYMPHOCYTES # (AUTO) 0.5 10^3/uL (1.0-4.0); LYMPHOCYTES % (AUTO) 3 % (12-44); MEAN CORPUSCULAR HEMOGLOBIN 24 pg (25-34); MEAN CORPUSCULAR HGB CONC 29 g/dL (32-36); MEAN CORPUSCULAR VOLUME 84 fL (80-99); MEAN PLATELET VOLUME 9.5 fL (9.0-12.2); MONOCYTES # (AUTO) 0.4 10^3/uL (0.0-1.0); MONOCYTES % (AUTO) 3 % (0-12); NEUTROPHILS # (AUTO) 11.6 10^3/uL (1.8-7.8); NEUTROPHILS % (AUTO) 86 % (42-75); PLATELET COUNT 321 10^3/uL (130-400); WHITE BLOOD COUNT 13.5 10^3/uL (4.3-11.0)
[2021-01-30 03:25] LABS: POTASSIUM 3.6 MMOL/L (3.6-5.0)
[2021-01-30 03:26] LABS: CALCIUM 7.6 MG/DL (8.5-10.1)
[2021-01-30 03:31] LABS: CREATININE SERUM 1.08 MG/DL (0.60-1.30); PHOSPHORUS 3.7 MG/DL (2.3-4.7)
[2021-01-30 03:33] LABS: MAGNESIUM 1.6 MG/DL (1.6-2.4)
[2021-01-30] MEDS: KCL 20 MEQ TAB (K-DUR) PO SCH (05:17)
[2021-01-30] MEDS: DOXYCYCLINE 100 MG (VIBRAMYCIN) TABLET PO SCH ×2 (05:17→17:30)
[2021-01-30] MEDS: MAGNESIUM 1 GM/100 ML IVPB 100 ML IV SCH ×3 (05:28→11:23)
[2021-01-30] MEDS: POTASSIUM CL 10MEQ/50ML IVPB 50 ML IV SCH ×5 (05:28→15:42)
[2021-01-30] MEDS: CEFEPIME 1,000 MG/SWFI 10 ML IV PUSH IV SCH ×8 (05:29→23:18)
[2021-01-30] MEDS: inSUlin ASPART (NovoLOG) 1 UNIT/0.01 ML (CHARGE PER UNIT) SQ SCH ×4 (05:29→23:37)
[2021-01-30] MEDS: FUROSEMIDE 40 MG/4 ML INJ (LASIX) IVP SCH ×2 (05:29→17:29)
--- NOTE | 2021-01-30 06:59 | Occ Therapy Progress Note ---
Therapy Progress Note OT orders received. Pt is in the process of being intubated. OT will continue to monitor pt, and initiate therapy when pt is more medically stable and able to actively participate in skilled therapy. KENJI DELANYE Jan 30, 2021 06:59
--- NOTE | 2021-01-30 08:38 | Physical Therapy Progress Note ---
Therapy Progress Note Patient is now intubated and sedated. Will start evaluation when appropriate. NIRMAL BELTRE PT Jan 30, 2021 08:38
--- NOTE | 2021-01-30 08:52 | Cardiology Progress Note ---
Progress Note-Cardiology Events since last exam Date Seen by Provider: Jan 30, 2021 Time Seen by Provider: 08:50 Events since last exam We are seeing her due to possible NSTEMI and heart failure. Yesterday afternoon her respiratory status declined. She was intubated and transferred to the intensive care unit. Now there is a concern about possible pulmonary embolism. I am not able to obtain any history from the patient due to her intubated/sedated status. Vitals Last set of Vitals Signs Vital Signs 01/30/21 01/30/21 14:06 18:00 Pulse 67 Resp 14 B/P (MAP) 126/78 (94) Pulse Ox 97 O2 Delivery Mechanical Ventilator O2 Flow Rate 45.00 FiO2 45 Labs Labs Laboratory Tests 01/30/21 02:57 Exam Vital Signs Vital Signs Date Time Temp Pulse Resp B/P (MAP) Pulse Ox O2 Delivery O2 Flow Rate FiO2 01/30/21 18:00 67 14 126/78 (94) 97 Mechanical Ventilator 45.00 01/30/21 16:00 36.4 01/30/21 14:06 45 Physical Exam General: Intubated and sedated. Well nourished and appears stated age. She is morbidly obese. Eye: Conjunctivae are clear. There are no xanthelasma. HENT: Normocephalic. Atraumatic. Carotid pulsations 2/2 without bruits. Neck: Jugular venous pressure does not appear elevated. No thyromegaly appreciat ed. Respiratory: Symmetrical expansion bilaterally. Coarse breath sounds to the ventilator. Cardiovascular: Normal rate. Regular rhythm. No murmur. No gallop. Point of maximal impulse is not appear displaced. Good pulses equal in all extremities. 1-2+ bilateral pretibial edema with some areas bandage. Gastrointestinal: Soft. Normal bowel sounds. Skin: Skin turgor is normal. There is no pallor. Musculoskeletal: No obvious deformities. Neurologic: Intubated and sedated. Psychiatric: Not obtainable due to clinical status. Labs Laboratory Tests Test 01/29/21 20:23 01/29/21 23:40 01/30/21 02:46 01/30/21 02:57 Range/Units Glucometer 276 H 246 H 70-110 MG/DL Blood Gas Puncture Site LEFT RAD Blood Gas Patient Temperature 35.9 Arterial Blood pH 7.35 L 7.37-7.43 Arterial Blood Partial Pressure CO2 32 L 35-45 MMHG Arterial Blood Partial Pressure O2 219 H 79-93 MMHG Arterial Blood HCO3 17 *L 23-27 MMOL/L Arterial Blood Total CO2 18.4 L 21.0-31.0 MMOL/L Arterial Blood Oxygen Saturation 100 94-100 % Arterial Blood Base Excess -7.4 L -2.5-2.5 MMOL/L Denilson Test YES-POS Blood Gas Ventilator Setting YES Blood Gas Inspired Oxygen 55% White Blood Count 13.5 H 4.3-11.0 10^3/uL Red Blood Count 3.18 L 3.80-5.11 10^6/uL Hemoglobin 7.6 L 11.5-16.0 g/dL Hematocrit 27 L 35-52 % Mean Corpuscular Volume 84 80-99 fL Mean Corpuscular Hemoglobin 24 L 25-34 pg Mean Corpuscular Hemoglobin Concent 29 L 32-36 g/dL Red Cell Distribution Width 27.0 H 10.0-14.5 % Platelet Count 321 130-400 10^3/uL Mean Platelet Volume 9.5 9.0-12.2 fL Immature Granulocyte % (Auto) 7 % Neutrophils (%) (Auto) 86 H 42-75 % Lymphocytes (%) (Auto) 3 L 12-44 % Monocytes (%) (Auto) 3 0-12 % Eosinophils (%) (Auto) 0 0-10 % Basophils (%) (Auto) 0 0-10 % Neutrophils # (Auto) 11.6 H 1.8-7.8 10^3/uL Lymphocytes # (Auto) 0.5 L 1.0-4.0 10^3/uL Monocytes # (Auto) 0.4 0.0-1.0 10^3/uL Eosinophils # (Auto) 0.0 0.0-0.3 10^3/uL Basophils # (Auto) 0.0 0.0-0.1 10^3/uL Immature Granulocyte # (Auto) 1.0 H 0.0-0.1 10^3/uL Sodium Level 142 135-145 MMOL/L Potassium Level 3.6 3.6-5.0 MMOL/L Chloride Level 110 H 98-107 MMOL/L Carbon Dioxide Level 16 L 21-32 MMOL/L Anion Gap 16 H 5-14 MMOL/L Blood Urea Nitrogen 25 H 7-18 MG/DL Creatinine 1.08 0.60-1.30 MG/DL Estimat Glomerular Filtration Rate 57 BUN/Creatinine Ratio 23 Glucose Level 254 H 70-105 MG/DL Calcium Level 7.6 L 8.5-10.1 MG/DL Phosphorus Level 3.7 2.3-4.7 MG/DL Magnesium Level 1.6 1.6-2.4 MG/DL Test 01/30/21 10:36 01/30/21 12:00 01/30/21 17:51 Range/Units Glucometer 251 H 233 H 70-110 MG/DL D-Dimer 2.68 H 0.00-0.49 UG/ML Diagnosis/Problems Diagnosis/Problems (1) Troponin level elevated Assessment & Plan: This is probably a type II non-ST elevation myocardial infarction due to supply/demand mismatch from her acute respiratory decompensation. However, she was also having some ill described chest discomfort. Her chest discomfort had resolved before her respiratory status declined. I started her on aspirin, beta-hiram, and statin medication. She had an echocardiogram on January 08 and this showed a normal ejection fraction. For the time being, we will continue with medical management. We will need to wait until her respiratory status improves before we can consider additional cardiac evaluation. (2) Acute on chronic diastolic heart failure Assessment & Plan: She has now had acute respiratory decline and was intubated. I suspect this is multifactorial in etiology. Her status is now critical. eICU has assisting with management. (3) Acute on chronic respiratory failure with hypoxia and hypercapnia (4) Essential hypertension Assessment & Plan: Continue beta-hiram and amlodipine as her blood pressure will allow. (5) Mixed hyperlipidemia Assessment & Plan: Her cholesterol level is very high. I started her on rosuvastatin. This will need to be followed after discharge. (6) Morbid obesity Assessment & Plan: Her obesity is most likely leading to the majority of her medical conditions. Once she gets through this acute illness, I would consider referral to a bariatric surgeon. ENOC LAWSON JR, MD Jan 30, 2021 08:52
[2021-01-30] MEDS ORDERED: PANTOPRAZOLE 40 MG (PROTONIX) VIAL IV SCH (09:00)
[2021-01-30] MEDS ORDERED: ASPIRIN E.C. 81 MG (ECOTRIN) TAB PO SCH (09:00)
--- NOTE | 2021-01-30 09:13 | Diagnostic Imaging Report ---
INDICATION: Acute respiratory failure Frontal chest obtained at 0903 a.m. and compared to 01/29/2021. ET tube and right IJ catheter are unchanged. NG tube seen with tip below the film. Cardiomegaly noted with unchanged bilateral infiltrates. There is no pneumothorax or pleural fluid IMPRESSION: Cardiomegaly. Unchanged bilateral infiltrates. No pneumothorax or pleural fluid. Dictated by: Dictated on workstation # [id number]
[2021-01-30] MEDS ORDERED: ASPIRIN 81 MG CHEW (CHILDREN'S ASA) ONE (09:22)
[2021-01-30] MEDS: FENTANYL PATCH REMOVAL TP SCH (09:26)
[2021-01-30] MEDS: SOLU MEDROL IV SCH ×4 (09:27→20:16)
[2021-01-30] MEDS: PANTOPRAZOLE 40 MG (PROTONIX) VIAL IV SCH ×2 (09:27→20:15)
[2021-01-30] MEDS: NS IV SCH ×4 (09:27→20:16)
[2021-01-30] MEDS: fentaNYL PATCH 25 MCG (DURAGESIC) TD SCH (09:28)
[2021-01-30] MEDS: amLODIPine 10 MG (NORVASC) TAB PO SCH (09:29)
[2021-01-30] MEDS: ENOXAPARIN 40 MG/0.4 ML (LOVENOX) SYR SC SCH (09:31)
[2021-01-30] MEDS: ASPIRIN E.C. 81 MG (ECOTRIN) TAB PO SCH (09:33)
[2021-01-30] MEDS ORDERED: FUROSEMIDE 40 MG/4 ML INJ (LASIX) IVP ONE (10:15)
--- NOTE | 2021-01-30 10:38 | Tele-ICU Progress Note ---
Subjective Date Seen by a Provider: Jan 30, 2021 Time Seen by a Provider: 10:38 Sepsis Event Evaluation Height, Weight, BMI Height: 5'2.00" Weight: 280lbs. 0.0oz. 127.880456tc; 52.92 BMI Method:Stated Focused Exam Lactate Level 01/27/21 16:25: Lactic Acid Level 1.15 Exam Exam Patient acknowledged, consented, and participated in this virtual visit which was conducted using real time audio/video Vital Signs Date Time Temp Pulse Resp B/P (MAP) Pulse Ox O2 Delivery O2 Flow Rate FiO2 01/30/21 10:34 89 30 96 45 01/30/21 09:00 109 36 133/86 (102) 96 Mechanical Ventilator 45.00 01/30/21 08:54 109 127/88 01/30/21 08:31 Mechanical Ventilator 45.00 01/30/21 08:00 105 36 142/92 (109) 95 Mechanical Ventilator 55.00 01/30/21 08:00 96 Mechanical Ventilator 55 01/30/21 07:42 36.5 01/30/21 07:00 101 40 134/93 (107) 97 Mechanical Ventilator 55.00 01/30/21 06:57 99 36 97 55 01/30/21 06:46 96 01/30/21 06:22 101 127/88 01/30/21 06:00 93 28 133/86 (102) 97 Mechanical Ventilator 55.00 01/30/21 05:00 93 27 132/93 (106) 96 Mechanical Ventilator 55.00 01/30/21 04:00 94 15 129/93 (105) 96 Mechanical Ventilator 55.00 01/30/21 03:00 98 31 140/84 (102) 97 Mechanical Ventilator 55.00 01/30/21 03:00 101 01/30/21 02:24 84 129/92 01/30/21 02:23 84 34 99 55 01/30/21 02:00 77 27 119/85 (96) 97 Mechanical Ventilator 55.00 01/30/21 01:00 78 01/30/21 01:00 78 22 117/85 (96) 97 Mechanical Ventilator 55.00 01/30/21 00:00 78 28 118/83 (95) 97 Mechanical Ventilator 55.00 01/29/21 23:55 114/82 01/29/21 23:00 82 10 120/84 (96) 97 Mechanical Ventilator 55.00 01/29/21 22:15 85 27 126/87 (100) 97 Mechanical Ventilator 55.00 01/29/21 22:10 87 01/29/21 22:04 84 27 97 65 01/29/21 22:00 85 26 125/87 (100) 97 Mechanical Ventilator 65.00 01/29/21 21:00 96 18 134/94 (107) 97 Mechanical Ventilator 65.00 01/29/21 20:28 91 130/94 01/29/21 20:00 82 131/92 (105) 97 Mechanical Ventilator 65.00 01/29/21 20:00 98 Mechanical Ventilator 65 01/29/21 19:51 35.9 01/29/21 19:00 79 120/88 (99) 97 Mechanical Ventilator 65.00 01/29/21 19:00 79 01/29/21 18:37 77 30 97 65 01/29/21 18:23 108/83 01/29/21 18:00 79 18 107/2 (37) 97 Mechanical Ventilator 01/29/21 17:15 78 23 103/78 (86) 97 Mechanical Ventilator 01/29/21 16:00 35.8 01/29/21 16:00 88 26 100/76 (84) 97 Mechanical Ventilator 01/29/21 15:31 104 01/29/21 15:31 104 01/29/21 15:30 Mechanical Ventilator 65 01/29/21 15:10 117 115/84 (94) 96 Mechanical Ventilator 01/29/21 14:52 124 31 91 65 01/29/21 14:45 131 138/108 (118) 97 Mechanical Ventilator 01/29/21 13:11 96 01/29/21 12:23 36.4 98 32 170/120 (137) 92 Nasal Cannula 3.00 01/29/21 12:18 92 Nasal Cannula 3.00 I & O 01/30/21 07:00 Intake Total 3972 ml Output Total 1550 ml Balance 2422 ml Height & Weight Height: 5'2.00" Weight: 280lbs. 0.0oz. 127.407565ae; 52.92 BMI Method:Stated General Appearance: WD/WN, Mild Distress, Obese, Other HEENT: PERRL/EOMI, Moist Mucous Membranes Neck: Full Range of Motion, Normal Inspection Respiratory: Chest Non Tender, Lungs Clear, Other Cardiovascular: Regular Rate, Rhythm, Tachycardia Capillary Refill: Less Than 3 Seconds Extremity: Normal Capillary Refill, Pedal Edema, Other Neurologic/Psychiatric: Alert, Oriented x3, No Motor/Sensory Deficits, Normal Mood/Affect Skin: Normal Color, Warm/Dry Results Lab Laboratory Tests 01/29/21 03:55 01/30/21 02:57 Assessment/Plan Assessment/Plan (Tele-ICU Physician , Progress Note ) Available chart/ vitals / labs / Images reviewed Video assessment done using teleICU camera, rest of exam as per RN Discussed with RN Events overnight : Afebrile hemodynamically stable, no pressors, I/O - [place] 62[address] Drips: propofol 50 . NS 50 As per RN exam : Consultants: Consultants: saw VENT SETTINGS. AC rr 14 TV 450 ( 8 cc/kg) +10 50% ABG reviewed A/P Acute resp failure ( on chronic ) hypoxic, hypercarbic - conbination of CHF. possibla PNA , receiving opioids po and possible TRALI post transfusion , less likely PE ( on AC , and was on AC with neg w/up during recent hosp - intubated 01/29 - follow abg , needs more sedation , will add ativan -01/30 - cxr with elevted right diphragm - ? mucous plug - keep on peep 10 - positive volume status 4 L last 24 h - additional lasix - consider to do SBT if good responde to duiretics HCAP - vancomycin and cefepime - sputum cx ( recent tx for sepsis - cellulitis (vancomycin, zosyn 01/07 AECOPD - on IV steroids very high dose Suspected MS - on steroids 500 Acute on chronic diastolic heart failure -ECHO 01/08 - 55% , RVSP 20 mm - diuresis - but seems positive last 24 h - id records correct need toincrease lasix type II non-STEMI - ECHO pending - lovenox proph dose 01/29 given anemia and blood transfusion ( 130 bid given this am Anemia - - monitor - for now , w/up as per PCP (received 1 U PCBC 01/28 - resume hep sq proph DMII - as per PCP - no DKA , but significnt hyperglycemia Chtonic hypoxia - VQ neg and LE US neg 01/09/21 an risk for HAILE /OHV UDS positive for opioids and amphetamine last admission -on phentermine for weight loss -on hydrocodone for foot and leg pain rib fx. seen on cxr. - no c/o or history Lines : R IJ 01/29 , (Central Line Necessity Reviewed) Hernandez: + OG: + Nutrition: to satrt today Analgesia: fentanyl prn Anxiety/ delirium VTE Prophylaxis: hold lovenox 01/29 - resume proph 01/30 Stress Ulcer Prophylaxis: PPI Glycemic Control: Plans in collaboration with bedside consultants and IM MDs. Discussed with RN to reach out if any questions or concerns A total of 37 minutes of critical care time was devoted to this patient today, required to treat and/or prevent further deterioration of critical care condition ( as above ) . NOÉ CAO MD Jan 30, 2021 10:38
[2021-01-30] MEDS: LORazepam INJ 2 MG/ML (ATIVAN) VIAL IVP SCH ×2 (11:11→14:17)
[2021-01-30] MEDS: VANCOMYCIN 2000 MG/NS 500 ML IVPB IV SCH ×2 (11:23)
[2021-01-30] MEDS: DexMEDEtomidine 250 ML DRIP 250 ML IV SCH (16:25)
--- NOTE | 2021-01-30 18:11 | Progress Note ---
Subjective Date Seen by a Provider: Jan 30, 2021 Time Seen by a Provider: 12:35 Subjective/Events-last exam Nursing was concerned about patient's breathing and worsened respiratory status- She was sent down to CT yesterday for CTA and when she was laid flat her respiratory status worsened resulting in intubation and central line. Objective Exam Last Set of Vital Signs Vital Signs Date Time Temp Pulse Resp B/P (MAP) Pulse Ox O2 Delivery O2 Flow Rate FiO2 01/30/21 17:00 79 20 119/75 (90) 96 Mechanical Ventilator 45.00 01/30/21 16:00 36.4 01/30/21 14:06 45 Capillary Refill : Less Than 3 Seconds I&O Intake and Output 01/30/21 00:00 Intake Total 5532 ml Output Total 1250 ml Balance 4282 ml Intake Oral 2050 ml IV Total 3482 ml Output Urine Total 1250 ml # Voids 4 # Bowel Movements 1 Results Lab Laboratory Tests 01/29/21 20:23: Glucometer 276H 01/29/21 23:40: Glucometer 246H 01/30/21 02:46: Blood Gas Puncture Site LEFT RAD, Blood Gas Patient Temperature 35.9, Arterial Blood pH 7.35L, Arterial Blood Partial Pressure CO2 32L, Arterial Blood Partial Pressure O2 219H, Arterial Blood HCO3 17*L, Arterial Blood Total CO2 18.4L, Arterial Blood Oxygen Saturation 100, Arterial Blood Base Excess -7.4L, Denilson Test YES-POS, Blood Gas Ventilator Setting YES, Blood Gas Inspired Oxygen 55% 01/30/21 02:57: White Blood Count 13.5H, Red Blood Count 3.18L, Hemoglobin 7.6L, Hematocrit 27L, Mean Corpuscular Volume 84, Mean Corpuscular Hemoglobin 24L, Mean Corpuscular Hemoglobin Concent 29L, Red Cell Distribution Width 27.0H, Platelet Count 321, Mean Platelet Volume 9.5, Immature Granulocyte % (Auto) 7, Neutrophils (%) (Auto) 86H, Lymphocytes (%) (Auto) 3L, Monocytes (%) (Auto) 3, Eosinophils (%) (Auto) 0, Basophils (%) (Auto) 0, Neutrophils # (Auto) 11.6H, Lymphocytes # (Auto) 0.5L, Monocytes # (Auto) 0.4, Eosinophils # (Auto) 0.0, Basophils # (Auto) 0.0, Immature Granulocyte # (Auto) 1.0H, Sodium Level 142, Potassium Level 3.6, Chloride Level 110H, Carbon Dioxide Level 16L, Anion Gap 16H, Blood Urea Nitrogen 25H, Creatinine 1.08, Estimat Glomerular Filtration Rate 57, BUN/Creatinine Ratio 23, Glucose Level 254H, Calcium Level 7.6L, Phosphorus Level 3.7, Magnesium Level 1.6 01/30/21 10:36: Glucometer 251H 01/30/21 12:00: D-Dimer 2.68H 01/30/21 17:51: Glucometer 233H Microbiology 01/29/21 MRSA Screen - Final, Complete No growth 01/29/21 Urine Culture - Final, Complete YEAST 01/27/21 Blood Culture - Preliminary, Resulted No growth Assessment/Plan Assessment/Plan Assess & Plan/Chief Complaint Cr stable. Diuresing appreciate eICU, cardiology SBT today hgb stable- infusing Fe. Diagnosis/Problems Diagnosis/Problems (1) Acute respiratory failure with hypoxia Assessment & Plan: supportive care- RT, oxygen, diuresing- on vanc/cefepime to cover HCAP- will stop vancomycin (2) Disability due to neurological disorder Assessment & Plan: still unclear on etiology- rechecking erlichiosis panel at end of week to see if she has IgG. Also on high dose steroids to see if this will help - has signs of MS (3) Acute on chronic diastolic heart failure (4) Essential hypertension (5) Chronic kidney disease (6) Obesity hypoventilation syndrome (7) Anemia of chronic disease (8) Morbid obesity (9) Type 2 diabetes mellitus with hyperglycemia (10) Positive serology for Erlichiosis Assessment & Plan: on doxycycline CHAZ ADLER MD Jan 30, 2021 18:11
[2021-01-30] MEDS: traZODone 100 MG (DESYREL) TAB PO SCH (20:16)
[2021-01-30] MEDS: ROSUVASTATIN 20 MG (CRESTOR) TABLET PO SCH (20:16)
[2021-01-31] VITALS (30 sets, daily range): BP systolic 121–168; BP diastolic 79–113
[2021-01-31] MEDS: RT-ALBUTEROL/IPRATROPIUM 3 ML (DUONEB) VIAL INH SCH ×4 (02:48→22:04)
[2021-01-31] MEDS: fentaNYL INJ 100 MCG/2 ML AMP IVP PRN ×5 (03:25→22:28)
[2021-01-31] MEDS: PROPOFOL DRIP (ICU) 100 ML IV SCH ×6 (03:25→13:03)
[2021-01-31] MEDS: DexMEDEtomidine 250 ML DRIP 250 ML IV SCH ×3 (04:19→22:28)
[2021-01-31 04:43] LABS: ABG BASE EXCESS -8.5 MMOL/L (-2.5-2.5); ABG OXYGEN SATURATION 93 % (94-100); ABG PCO2 32 MMHG (35-45); ABG PO2 66 MMHG (79-93); ABG TCO2 17.6 MMOL/L (21.0-31.0)
[2021-01-31 04:45] LABS: ALLENS TEST YES-POS
[2021-01-31 04:46] LABS: BASOPHILS % (AUTO) 0 % (0-10); EOSINOPHILS % (AUTO) 0 % (0-10); HEMATOCRIT 29 % (35-52); HEMOGLOBIN 8.3 g/dL (11.5-16.0); LYMPHOCYTES # (AUTO) 0.2 10^3/uL (1.0-4.0); LYMPHOCYTES % (AUTO) 2 % (12-44); MEAN CORPUSCULAR HEMOGLOBIN 24 pg (25-34); MEAN CORPUSCULAR HGB CONC 28 g/dL (32-36); MEAN CORPUSCULAR VOLUME 85 fL (80-99); MEAN PLATELET VOLUME 9.7 fL (9.0-12.2); MONOCYTES # (AUTO) 0.2 10^3/uL (0.0-1.0); MONOCYTES % (AUTO) 2 % (0-12); NEUTROPHILS # (AUTO) 8.9 10^3/uL (1.8-7.8); NEUTROPHILS % (AUTO) 91 % (42-75); PLATELET COUNT 314 10^3/uL (130-400); WHITE BLOOD COUNT 9.7 10^3/uL (4.3-11.0)
[2021-01-31 04:46] LABS: INSPIRED O2 Positive End Expirat; PATIENT TEMP 35.9; VENTILATOR YES
[2021-01-31 04:49] LABS: ABG PH 7.33 (7.37-7.43)
[2021-01-31 04:54] LABS: POTASSIUM 3.6 MMOL/L (3.6-5.0)
[2021-01-31 04:55] LABS: CALCIUM 7.6 MG/DL (8.5-10.1)
[2021-01-31 04:59] LABS: CREATININE SERUM 1.09 MG/DL (0.60-1.30); PHOSPHORUS 4.3 MG/DL (2.3-4.7)
[2021-01-31 05:02] LABS: MAGNESIUM 2.2 MG/DL (1.6-2.4)
[2021-01-31] MEDS: KCL 20 MEQ TAB (K-DUR) PO SCH (05:02)
[2021-01-31] MEDS: POTASSIUM CL 10MEQ/50ML IVPB 50 ML IV SCH ×3 (05:02→05:13)
[2021-01-31] MEDS: MAGNESIUM 1 GM/100 ML IVPB 100 ML IV SCH (05:03)
[2021-01-31] MEDS: inSUlin ASPART (NovoLOG) 1 UNIT/0.01 ML (CHARGE PER UNIT) SQ SCH ×4 (05:13→23:15)
[2021-01-31] MEDS: DOXYCYCLINE 100 MG (VIBRAMYCIN) TABLET PO SCH ×2 (06:01→17:09)
[2021-01-31] MEDS: CEFEPIME 1,000 MG/SWFI 10 ML IV PUSH IV SCH ×8 (06:01→23:16)
[2021-01-31] MEDS: FUROSEMIDE 40 MG/4 ML INJ (LASIX) IVP SCH ×2 (06:01→17:09)
--- NOTE | 2021-01-31 06:50 | Occ Therapy Progress Note ---
Therapy Progress Note Pt is currently intubated. OT will continue to monitor pt, and initiate therapy when pt is more medically stable and able to actively participate in skilled therapy. KENJI DELANEY Jan 31, 2021 06:50
--- NOTE | 2021-01-31 07:47 | Physical Therapy Progress Note ---
Therapy Progress Note Patient is currently intubated and sedated. Will monitor and start when appropriate. NIRMAL BELTRE PT Jan 31, 2021 07:47
--- NOTE | 2021-01-31 08:20 | Cardiology Progress Note ---
Progress Note-Cardiology Events since last exam Date Seen by Provider: Jan 31, 2021 Time Seen by Provider: 08:17 Events since last exam We are seeing her due to possible NSTEMI and heart failure. She remains in the ICU intubated and sedated. Last evening her sedation was weaned down but she became very tachypneic and the sedation was resumed. I spoke to the nurse at the bedside. She was given 100 mg of IV Lasix yesterday and did not have much of a response from her urine output. Vitals Last set of Vitals Signs Vital Signs 01/31/21 01/31/21 13:56 16:00 Temp 36.8 Pulse 72 Resp 21 B/P (MAP) 167/109 (128) Pulse Ox 97 O2 Delivery Mechanical Ventilator O2 Flow Rate 30.00 FiO2 21 Labs Labs Laboratory Tests 01/31/21 04:40 Exam Vital Signs Vital Signs Date Time Temp Pulse Resp B/P (MAP) Pulse Ox O2 Delivery O2 Flow Rate FiO2 01/31/21 16:00 72 21 167/109 (128) 97 Mechanical Ventilator 30.00 01/31/21 16:00 36.8 01/31/21 13:56 21 Physical Exam General: Intubated and sedated. Well nourished and appears stated age. She is morbidly obese. Eye: Conjunctivae are clear. There are no xanthelasma. HENT: Normocephalic. Atraumatic. Carotid pulsations 2/2 without bruits. Neck: Jugular venous pressure does not appear elevated. No thyromegaly appreciated. Respiratory: Symmetrical expansion bilaterally. Coarse breath sounds to the ventilator. Cardiovascular: Normal rate. Regular rhythm. No murmur. No gallop. Point of maximal impulse is not appear displaced. Good pulses equal in all extremities. 1+ bilateral pretibial edema with areas of erythema and bandages covering some wounds.. Gastrointestinal: Soft. Normal bowel sounds. Skin: Skin turgor is normal. There is no pallor. Musculoskeletal: No obvious deformities. Neurologic: Intubated and sedated. Psychiatric: Not obtainable due to clinical status. Labs Laboratory Tests Test 01/30/21 17:51 01/30/21 20:36 01/30/21 23:31 01/31/21 04:33 Range/Units Glucometer 233 H 233 H 233 H 70-110 MG/DL Blood Gas Puncture Site L RAD Blood Gas Patient Temperature 35.9 Arterial Blood pH 7.33 *L 7.37-7.43 Arterial Blood Partial Pressure CO2 32 L 35-45 MMHG Arterial Blood Partial Pressure O2 66 L 79-93 MMHG Arterial Blood HCO3 17 *L 23-27 MMOL/L Arterial Blood Total CO2 17.6 L 21.0-31.0 MMOL/L Arterial Blood Oxygen Saturation 93 L 94-100 % Arterial Blood Base Excess -8.5 L -2.5-2.5 MMOL/L Denilson Test YES-POS Blood Gas Ventilator Setting YES Blood Gas Inspired Oxygen Positive End Expirat Test 01/31/21 04:40 01/31/21 11:47 Range/Units White Blood Count 9.7 4.3-11.0 10^3/uL Red Blood Count 3.44 L 3.80-5.11 10^6/uL Hemoglobin 8.3 L 11.5-16.0 g/dL Hematocrit 29 L 35-52 % Mean Corpuscular Volume 85 80-99 fL Mean Corpuscular Hemoglobin 24 L 25-34 pg Mean Corpuscular Hemoglobin Concent 28 L 32-36 g/dL Red Cell Distribution Width 27.4 H 10.0-14.5 % Platelet Count 314 130-400 10^3/uL Mean Platelet Volume 9.7 9.0-12.2 fL Immature Granulocyte % (Auto) 5 % Neutrophils (%) (Auto) 91 H 42-75 % Lymphocytes (%) (Auto) 2 L 12-44 % Monocytes (%) (Auto) 2 0-12 % Eosinophils (%) (Auto) 0 0-10 % Basophils (%) (Auto) 0 0-10 % Neutrophils # (Auto) 8.9 H 1.8-7.8 10^3/uL Lymphocytes # (Auto) 0.2 L 1.0-4.0 10^3/uL Monocytes # (Auto) 0.2 0.0-1.0 10^3/uL Eosinophils # (Auto) 0.0 0.0-0.3 10^3/uL Basophils # (Auto) 0.0 0.0-0.1 10^3/uL Immature Granulocyte # (Auto) 0.5 H 0.0-0.1 10^3/uL Sodium Level 139 135-145 MMOL/L Potassium Level 3.6 3.6-5.0 MMOL/L Chloride Level 110 H 98-107 MMOL/L Carbon Dioxide Level 17 L 21-32 MMOL/L Anion Gap 12 5-14 MMOL/L Blood Urea Nitrogen 27 H 7-18 MG/DL Creatinine 1.09 0.60-1.30 MG/DL Estimat Glomerular Filtration Rate 56 BUN/Creatinine Ratio 25 Glucose Level 292 H 70-105 MG/DL Uric Acid 7.9 H 2.6-7.2 MG/DL Calcium Level 7.6 L 8.5-10.1 MG/DL Phosphorus Level 4.3 2.3-4.7 MG/DL Magnesium Level 2.2 1.6-2.4 MG/DL Triglycerides Level 932 H <150 MG/DL Glucometer 252 H 70-110 MG/DL Diagnosis/Problems Diagnosis/Problems (1) Troponin level elevated Assessment & Plan: This is probably a type II non-ST elevation myocardial infarction due to supply/demand mismatch from her acute respiratory decompensati on. However, she was also having some ill described chest discomfort. Her chest discomfort had resolved before her respiratory status declined. I started her on aspirin, beta-hiram, and statin medication. She had an echocardiogram on January 08 and this showed a normal ejection fraction. For the time being, we will continue with medical management. We will need to wait until her respiratory status improves before we can consider additional cardiac evaluation. (2) Acute on chronic diastolic heart failure Assessment & Plan: We will continue with IV diuresis for the time being as long as her renal function does not become compromised. (3) Acute on chronic respiratory failure with hypoxia and hypercapnia Assessment & Plan: She has now had acute respiratory decline and was intubated. I suspect this is multifactorial in etiology. Her status is now critical. eICU has assisting with management. There has been little change in the appearance of her chest x-ray over the last 24 hours. (4) Essential hypertension Assessment & Plan: Her blood pressures continue to be elevated at times. I will increase her dose of carvedilol. Continue amlodipine. (5) Mixed hyperlipidemia Assessment & Plan: Continue rosuvastatin. This is a new medication for the patient and will need to be followed after discharge. (6) Morbid obesity Assessment & Plan: Her obesity is most likely leading to the majority of her medical conditions. Once she gets through this acute illness, I would consider referral to a bariatric surgeon. ENOC LAWSON JR, MD Jul 21, 2021 08:20
[2021-01-31] MEDS ORDERED: ASPIRIN 81 MG CHEW (CHILDREN'S ASA) ONE (08:32)
[2021-01-31] MEDS: SOLU MEDROL IV SCH ×4 (08:37→20:03)
[2021-01-31] MEDS: NS IV SCH ×4 (08:37→20:03)
[2021-01-31] MEDS: amLODIPine 10 MG (NORVASC) TAB PO SCH (08:37)
[2021-01-31] MEDS: IRON SUCROSE 200 MG/10 ML (VENOFER) VIAL IV SCH (08:37)
[2021-01-31] MEDS: PANTOPRAZOLE 40 MG (PROTONIX) VIAL IV SCH ×2 (08:37→20:02)
[2021-01-31] MEDS: ASPIRIN E.C. 81 MG (ECOTRIN) TAB PO SCH (08:38)
[2021-01-31] MEDS: ENOXAPARIN 40 MG/0.4 ML (LOVENOX) SYR SC SCH (08:38)
--- NOTE | 2021-01-31 08:58 | Tele-ICU Progress Note ---
Subjective Date Seen by a Provider: Jan 31, 2021 Time Seen by a Provider: 11:08 Subjective/Events-last exam 40 yo F with morbid obestiy,admitted in resp distress probably from PNA, COVID neg, on doxycycline, Medrol Carries Dx of CHF, has preserved LVEF, also new Dx of DM on Detimer 10 U/d CXR from yesterday shows cardiomegaly and congestion, Getting Lasix 40 bid Intubated for resp distress in CT on 01/29, Vent settings Vt 420, AC 20 FiO2 21% PEEP 8, getting good SpO2 low 90;s but if will desaturate if moved Pt is sedated RASS + 2 TG hi at 900, will have to switch sedation to Versed and continue Precedes @ 0.5 Review of Systems Neurological: Other (sedated and on vent) Sepsis Event Evaluation Height, Weight, BMI Height: 5'2.00" Weight: 280lbs. 0.0oz. 127.095253rx; 52.92 BMI Method:Stated Exam Exam Patient acknowledged, consented, and participated in this virtual visit which was conducted using real time audio/video Vital Signs Date Time Temp Pulse Resp B/P (MAP) Pulse Ox O2 Delivery O2 Flow Rate FiO2 01/31/21 07:59 95 Mechanical Ventilator 21 01/31/21 07:35 36.0 01/31/21 07:09 65 25 97 51 01/31/21 06:33 66 01/31/21 06:00 66 27 143/96 (112) 97 Mechanical Ventilator 21.00 01/31/21 05:00 64 23 139/91 (107) 92 Mechanical Ventilator 21.00 01/31/21 04:19 64 01/31/21 04:00 64 21 138/91 (107) 92 Mechanical Ventilator 21.00 01/31/21 03:26 65 141/93 01/31/21 03:25 65 141/93 01/31/21 03:00 64 21 138/91 (107) 92 Mechanical Ventilator 28.00 01/31/21 03:00 64 24 138/93 (108) 93 Mechanical Ventilator 28.00 01/31/21 02:49 64 26 100 28 01/31/21 02:00 64 23 136/88 (104) 98 Mechanical Ventilator 28.00 01/31/21 01:00 64 01/31/21 01:00 64 21 130/86 (101) 99 Mechanical Ventilator 28.00 01/31/21 00:19 35.4 21 00:00 65 23 130/84 (99) 99 Mechanical Ventilator 28.00 01/30/21 23:16 66 126/80 01/30/21 23:16 66 126/80 21 23:00 67 24 126/79 (95) 99 Mechanical Ventilator 28.00 01/30/21 22:30 64 24 131/88 (102) 98 Mechanical Ventilator 28.00 01/30/21 22:23 64 26 100 35 01/30/21 22:07 64 01/30/21 22:00 64 21 129/87 (101) 99 Mechanical Ventilator 35.00 01/30/21 21:00 65 22 132/85 (101) 99 Mechanical Ventilator 35.00 01/30/21 20:30 35.6 01/30/21 20:21 30.0 01/30/21 20:00 66 22 132/85 (101) 99 Mechanical Ventilator 35.00 01/30/21 20:00 97 Mechanical Ventilator 35 01/30/21 19:41 67 137/89 01/30/21 19:40 67 137/89 01/30/21 19:00 68 01/30/21 19:00 68 23 134/89 (104) 97 Mechanical Ventilator 45.00 01/30/21 18:41 68 21 98 45 01/30/21 18:00 67 14 126/78 (94) 97 Mechanical Ventilator 45.00 01/30/21 17:00 79 20 119/75 (90) 96 Mechanical Ventilator 45.00 01/30/21 16:25 82 118/79 01/30/21 16:00 36.4 01/30/21 16:00 89 35 98/75 (83) 95 Mechanical Ventilator 45.00 01/30/21 15:20 105 126/78 01/30/21 15:20 105 126/78 01/30/21 15:00 93 26 106/82 (90) 96 Mechanical Ventilator 45.00 01/30/21 14:06 99 25 96 45 01/30/21 14:00 98 23 118/80 (93) 96 Mechanical Ventilator 45.00 01/30/21 13:00 104 38 137/95 (109) 96 Mechanical Ventilator 45.00 01/30/21 12:43 103 01/30/21 12:00 90 26 121/87 (98) 94 Mechanical Ventilator 45.00 01/30/21 11:45 36.8 01/30/21 11:11 96 121/78 01/30/21 11:00 86 26 121/78 (92) 97 Mechanical Ventilator 45.00 01/30/21 10:34 89 30 96 45 01/30/21 10:00 102 32 130/89 (103) 96 Mechanical Ventilator 45.00 01/30/21 09:00 109 36 133/86 (102) 96 Mechanical Ventilator 45.00 01/30/21 08:54 109 127/88 I & O 01/31/21 06:59 Intake Total 2150 ml Output Total 1650 ml Balance 500 ml Height & Weight Height: 5'2.00" Weight: 280lbs. 0.0oz. 127.322482tu; 52.92 BMI Method:Stated General Appearance: WD/WN, Mild Distress, Obese, Other (Sedated on Precedex and Propofol- will be switched to Versed) HEENT: PERRL/EOMI, Moist Mucous Membranes Neck: Full Range of Motion, Normal Inspection Respiratory: Chest Non Tender, Lungs Clear, Decreased Breath Sounds, Other Cardiovascular: Regular Rate, Rhythm, Tachycardia Capillary Refill: Less Than 3 Seconds Gastrointestinal: normal bowel sounds, non tender, soft Extremity: Normal Capillary Refill, Pedal Edema (+3 pitting edema up to knees), Other Neurologic/Psychiatric: Alert, Oriented x3, No Motor/Sensory Deficits, Normal Mood/Affect Skin: Normal Color, Warm/Dry Results Lab Laboratory Tests 01/30/21 02:57 01/31/21 04:40 Assessment/Plan Assessment/Plan CHF with acute hypoxic resp failure, will keep on full vent support continue IV Lasix 50 bid, Medrol, IV cefepime, blood cultures neg so far also on precedex, change propofol to Versed, not ready for SBT, will continue with IV Lasix to reduce edema COVID neG I reviewed CXR today still very large heart with pulm edema 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
--- NOTE | 2021-01-31 09:39 | Diagnostic Imaging Report ---
HISTORY: Acute respiratory failure COMPARISON: 01/30/2021 TECHNIQUE: Frontal view of the chest. FINDINGS: The right jugular line tip projects over the SVC. The endotracheal tube is 2.5 cm above the yamileth. The tip of the enteric tube projects over the stomach. Lung volumes are low. There is marked cardiomegaly. There are bilateral airspace opacities. No pleural effusion or pneumothorax is seen. Aeration overall appears similar to the prior exam. IMPRESSION: 1. Low lung volumes with bilateral airspace opacities. Aeration appears stable since the prior study. 2. Marked cardiomegaly. 3. Stable tubes and lines. Dictated by: Dictated on workstation # [id number]
[2021-01-31] MEDS: MIDAZOLAM DRIP PRE-MIX 100 ML IV SCH ×2 (10:57→20:02)
[2021-01-31] MEDS ORDERED: PROPOFOL DRIP (ICU) 200 ML IV ONE (11:34)
--- NOTE | 2021-01-31 14:11 | Progress Note ---
Standard Progress Note Progress Notes/Assess & Plan Date Seen by a Provider: Jan 31, 2021 Time Seen by a Provider: 14:10 Progress/Assessment & Plan spoke with PCP, pt had LP with results suggestive of multiple sclerosis, this is reason for RODRIGO Brandt MD Jan 31, 2021 14:11
[2021-01-31] MEDS ORDERED: fentaNYL INJ 100 MCG/2 ML AMP IV ONE (14:12)
[2021-01-31] MEDS ORDERED: MIDAZOLAM 5 MG/5 ML (VERSED) VIAL IJ ONE (14:12)
[2021-01-31] MEDS ORDERED: ROCURONIUM 10 MG/ML 5 ML SYRINGE IV ONE (14:12)
[2021-01-31] MEDS ORDERED: ETOMIDATE IV SOLN 20 MG/10 ML VIAL IV ONE (14:12)
--- NOTE | 2021-01-31 14:44 | Progress Note ---
Subjective Subjective Date Seen by Provider: Jan 31, 2021 Time Seen by Provider: 14:39 Still intubated. CXR not any better today. at bedside. He wonders what we should do now- He is torn between continuing care vs what he knows Miryam would say- and that would be that she does not want the breathing machine to keep her alive. We will try to diurese but also will check uric acid level. Review of Systems ROS Unable to Obtain: intubated Neurological: Other (sedated and on vent) All Other Systems Reviewed All Other Systems Reviewed: Yes Objective Exam Vital Signs Vital Signs Date Time Temp Pulse Resp B/P (MAP) Pulse Ox O2 Delivery O2 Flow Rate FiO2 01/31/21 14:11 Mechanical Ventilator 30.00 01/31/21 14:00 74 30 143/84 (103) 92 Mechanical Ventilator 21.00 01/31/21 13:56 71 29 90 21 01/31/21 13:03 68 153/95 01/31/21 13:02 68 153/95 01/31/21 13:00 68 24 153/95 (114) 92 Mechanical Ventilator 21.00 01/31/21 12:33 69 01/31/21 12:16 36.0 01/31/21 12:00 69 25 147/104 (118) 92 Mechanical Ventilator 21.00 01/31/21 11:58 35.4 01/31/21 11:00 68 24 153/106 (122) 92 Mechanical Ventilator 21.00 01/31/21 10:58 68 157/109 01/31/21 10:57 68 24 157/109 01/31/21 10:57 68 157/109 01/31/21 10:44 66 25 91 21 01/31/21 10:00 66 24 157/110 (126) 92 Mechanical Ventilator 21.00 01/31/21 09:00 67 24 150/102 (118) 93 Mechanical Ventilator 21.00 01/31/21 08:00 69 27 126/89 (101) 95 Mechanical Ventilator 21.00 01/31/21 07:59 95 Mechanical Ventilator 21 01/31/21 07:35 36.0 01/31/21 07:09 65 25 97 21 01/31/21 07:00 65 25 121/85 (97) 97 Mechanical Ventilator 21.00 01/31/21 06:33 66 01/31/21 06:00 66 27 143/96 (112) 97 Mechanical Ventilator 21.00 01/31/21 05:00 64 23 139/91 (107) 92 Mechanical Ventilator 21.00 01/31/21 04:19 64 01/31/21 04:00 64 21 138/91 (107) 92 Mechanical Ventilator 21.00 01/31/21 03:26 65 141/93 01/31/21 03:25 65 141/93 01/31/21 03:00 64 21 138/91 (107) 92 Mechanical Ventilator 28.00 01/31/21 03:00 64 24 138/93 (108) 93 Mechanical Ventilator 28.00 01/31/21 02:49 64 26 100 28 01/31/21 02:00 64 23 136/88 (104) 98 Mechanical Ventilator 28.00 01/31/21 01:00 64 01/31/21 01:00 64 21 130/86 (101) 99 Mechanical Ventilator 28.00 01/31/21 00:19 35.4 01/31/21 00:00 65 23 130/84 (99) 99 Mechanical Ventilator 28.00 01/30/21 23:16 66 126/80 01/30/21 23:16 66 126/80 01/30/21 23:00 67 24 126/79 (95) 99 Mechanical Ventilator 28.00 01/30/21 22:30 64 24 131/88 (102) 98 Mechanical Ventilator 28.00 01/30/21 22:23 64 26 100 35 01/30/21 22:07 64 01/30/21 22:00 64 21 129/87 (101) 99 Mechanical Ventilator 35.00 01/30/21 21:00 65 22 132/85 (101) 99 Mechanical Ventilator 35.00 01/30/21 20:30 35.6 01/30/21 20:21 30.0 01/30/21 20:00 66 22 132/85 (101) 99 Mechanical Ventilator 35.00 01/30/21 20:00 97 Mechanical Ventilator 35 01/30/21 19:41 67 137/89 01/30/21 19:40 67 137/89 01/30/21 19:00 68 01/30/21 19:00 68 23 134/89 (104) 97 Mechanical Ventilator 45.00 01/30/21 18:41 68 21 98 45 01/30/21 18:00 67 14 126/78 (94) 97 Mechanical Ventilator 45.00 01/30/21 17:00 79 20 119/75 (90) 96 Mechanical Ventilator 45.00 01/30/21 16:25 82 118/79 01/30/21 16:00 36.4 01/30/21 16:00 89 35 98/75 (83) 95 Mechanical Ventilator 45.00 01/30/21 15:20 105 126/78 01/30/21 15:20 105 126/78 01/30/21 15:00 93 26 106/82 (90) 96 Mechanical Ventilator 45.00 I & O 01/31/21 07:00 Intake Total 2150 ml Output Total 1650 ml Balance 500 ml General Appearance: No WD/WN; Mild Distress, Obese, Other (Sedated on Precedex and Propofol- will be switched to Versed) Eyes: Bilateral Eye Normal Inspection, Bilateral Eye PERRL HEENT: Moist Mucous Membranes Neck: Full Range of Motion, Normal Inspection Respiratory: Chest Non Tender, Lungs Clear, Decreased Breath Sounds, Other Cardiovascular: Regular Rate, Rhythm, Tachycardia Gastrointestinal: Normal Bowel Sounds Extremity: Normal Capillary Refill, Pedal Edema (+3 pitting edema up to knees - right worse than left.), Other Neurologic/Psychiatric: Alert, Oriented x3, No Motor/Sensory Deficits, Normal Mood/Affect Skin: Normal Color, Warm/Dry Results Lab Laboratory Tests 01/30/21 17:51: Glucometer 233 01/30/21 20:36: Glucometer 233 01/30/21 23:31: Glucometer [facility] 01/31/21 04:33: Blood Gas Puncture Site L RAD, Blood Gas Patient Temperature 35.9, Arterial Blood pH 7.33*L, Arterial Blood Partial Pressure CO2 32L, Arterial Blood Partial Pressure O2 66L, Arterial Blood HCO3 17*L, Arterial Blood Total CO2 17.6L, Arterial Blood Oxygen Saturation 93L, Arterial Blood Base Excess -8.5L, Denilson Test YES-POS, Blood Gas Ventilator Setting YES, Blood Gas Inspired Oxygen Positive End Expirat 01/31/21 04:40: White Blood Count 9.7, Red Blood Count 3.44L, Hemoglobin 8.3L, Hematocrit 29L, Mean Corpuscular Volume 85, Mean Corpuscular Hemoglobin 24L, Mean Corpuscular Hemoglobin Concent 28L, Red Cell Distribution Width 27.4H, Platelet Count 314, Mean Platelet Volume 9.7, Immature Granulocyte % (Auto) 5, Neutrophils (%) (Auto) 91H, Lymphocytes (%) (Auto) 2L, Monocytes (%) (Auto) 2, Eosinophils (%) (Auto) 0, Basophils (%) (Auto) 0, Neutrophils # (Auto) 8.9H, Lymphocytes # (Auto) 0.2L, Monocytes # (Auto) 0.2, Eosinophils # (Auto) 0.0, Basophils # (Auto) 0.0, Immature Granulocyte # (Auto) 0.5H, Sodium Level 139, Potassium Level 3.6, Chloride Level 110H, Carbon Dioxide Level 17L, Anion Gap 12, Blood Urea Nitrogen 27H, Creatinine 1.09, Estimat Glomerular Filtration Rate 56, BUN/C reatinine Ratio 25, Glucose Level 292H, Calcium Level 7.6L, Phosphorus Level 4.3, Magnesium Level 2.2, Triglycerides Level 932H 01/31/21 11:47: Glucometer 252H Microbiology 01/29/21 MRSA Screen - Final, Complete No growth 01/29/21 Urine Culture - Final, Complete YEAST 01/27/21 Blood Culture - Preliminary, Resulted No growth Assessment/Plan Assessment/Plan Assessment and Plan Cr stable. Diuresing appreciate eICU, cardiology hgb stable- infusing Fe. SBT did not go well yesterday- still intubated. TG elevated changing from propofol to precedex We will try to diurese but also will check uric acid level. -If uric acid level is elevated- she is intravascular depleted and lasix are not going to be much benefit. Prognosis: poor. DVT: lovenox. Discussion with - he feels like if we do not have a good plan and expect improvement then he knows Miryam would say to stop. She would not want to be on a ventilator if it is likely she is not going to improve. We discussed trying to diurese her and seeing how she does tomorrow and reassess the situation. Her reserve is low due to her 2 week stay inpatient last week, not being able to move/walk- and coupled with her multiple co-morbidities she i We have attempted to transfer on this admission from the ER (to ) but they declined. I attempted to transfer to and [facility] 2 weeks ago when we were unable to obtain an MRI of her head and would have liked a neurology consult. Transfer was declined by each facility. Problems: (1) Acute respiratory failure with hypoxia Assessment & Plan: supportive care- RT, diuresing- cefepime (2) Disability due to neurological disorder Assessment & Plan: still unclear on etiology- rechecking erlichiosis panel at end of week to see if she has IgG. Also on high dose steroids to see if this will help - has signs of MS (3) Acute on chronic diastolic heart failure (4) Essential hypertension (5) Chronic kidney disease (6) Obesity hypoventilation syndrome (7) Anemia of chronic disease (8) Morbid obesity (9) Type 2 diabetes mellitus with hyperglycemia CHAZ ADLER MD Jan 31, 2021 14:44
[2021-01-31] MEDS: LORazepam INJ 2 MG/ML (ATIVAN) VIAL IVP PRN ×2 (15:31→19:56)
--- NOTE | 2021-01-31 16:36 | Progress Note ---
Standard Progress Note Progress Notes/Assess & Plan Date Seen by a Provider: Jan 31, 2021 Time Seen by a Provider: 16:34 Progress/Assessment & Plan spoke with PCP, pt had LP with results suggestive of multiple sclerosis, this is reason for Medrol Also RN called Propofol being lowered due to very high TG's and now more agitated with higher [place] on vent, will raise Versed to 12 and then 15 if needed RODRIGO EL MD Jan 31, 2021 16:36
[2021-01-31] MEDS: ROSUVASTATIN 20 MG (CRESTOR) TABLET PO SCH (20:02)
[2021-01-31] MEDS: traZODone 100 MG (DESYREL) TAB PO SCH (20:13)
[2021-01-31] MEDS: SILVASORB GEL 1.5 OZ TP SCH (22:29)
[2021-02-01] VITALS (30 sets, daily range): BP systolic 121–149; BP diastolic 70–99
[2021-02-01] MEDS: LORazepam INJ 2 MG/ML (ATIVAN) VIAL IVP PRN ×3 (00:20→20:52)
[2021-02-01] MEDS: RT-ALBUTEROL/IPRATROPIUM 3 ML (DUONEB) VIAL INH SCH ×4 (02:08→21:43)
[2021-02-01] MEDS: MIDAZOLAM DRIP PRE-MIX 100 ML IV SCH ×3 (03:19→23:30)
[2021-02-01] MEDS: DexMEDEtomidine 250 ML DRIP 250 ML IV SCH ×4 (03:20→20:53)
[2021-02-01 03:31] LABS: BASOPHILS % (AUTO) 0 % (0-10); EOSINOPHILS % (AUTO) 0 % (0-10); HEMATOCRIT 31 % (35-52); HEMOGLOBIN 8.7 g/dL (11.5-16.0); LYMPHOCYTES # (AUTO) 0.1 10^3/uL (1.0-4.0); LYMPHOCYTES % (AUTO) 1 % (12-44); MEAN CORPUSCULAR HEMOGLOBIN 24 pg (25-34); MEAN CORPUSCULAR HGB CONC 28 g/dL (32-36); MEAN CORPUSCULAR VOLUME 84 fL (80-99); MEAN PLATELET VOLUME 9.7 fL (9.0-12.2); MONOCYTES # (AUTO) 0.2 10^3/uL (0.0-1.0); MONOCYTES % (AUTO) 1 % (0-12); NEUTROPHILS # (AUTO) 9.6 10^3/uL (1.8-7.8); NEUTROPHILS % (AUTO) 93 % (42-75); PLATELET COUNT 273 10^3/uL (130-400); WHITE BLOOD COUNT 10.4 10^3/uL (4.3-11.0)
[2021-02-01 03:42] LABS: POTASSIUM 3.4 MMOL/L (3.6-5.0)
[2021-02-01 03:43] LABS: CALCIUM 7.4 MG/DL (8.5-10.1)
[2021-02-01 03:48] LABS: CREATININE SERUM 1.02 MG/DL (0.60-1.30); PHOSPHORUS 4.4 MG/DL (2.3-4.7)
[2021-02-01 03:50] LABS: MAGNESIUM 2.2 MG/DL (1.6-2.4)
[2021-02-01] MEDS: MAGNESIUM 1 GM/100 ML IVPB 100 ML IV SCH (03:57)
[2021-02-01] MEDS: KCL 20 MEQ TAB (K-DUR) PO SCH (03:58)
[2021-02-01] MEDS: POTASSIUM CL 10MEQ/50ML IVPB 50 ML IV SCH ×2 (03:58→04:22)
[2021-02-01 04:28] LABS: ABG BASE EXCESS -7.3 MMOL/L (-2.5-2.5); ABG OXYGEN SATURATION 87 % (94-100); ABG PCO2 35 MMHG (35-45); ABG PO2 56 MMHG (79-93); ABG TCO2 18.8 MMOL/L (21.0-31.0)
[2021-02-01 04:29] LABS: ABG PH 7.32 (7.37-7.43); ALLENS TEST NO; PATIENT TEMP 36.2; VENTILATOR YES
[2021-02-01] MEDS: CEFEPIME 1,000 MG/SWFI 10 ML IV PUSH IV SCH ×4 (05:55→12:14)
[2021-02-01] MEDS: inSUlin ASPART (NovoLOG) 1 UNIT/0.01 ML (CHARGE PER UNIT) SQ SCH ×4 (05:56→23:24)
[2021-02-01] MEDS: FUROSEMIDE 40 MG/4 ML INJ (LASIX) IVP SCH ×2 (06:01→17:18)
[2021-02-01] MEDS: DOXYCYCLINE 100 MG (VIBRAMYCIN) TABLET PO SCH ×2 (06:02→17:17)
--- NOTE | 2021-02-01 06:46 | Occ Therapy Progress Note ---
Therapy Progress Note Pt is currently intubated. OT will continue to monitor pt and initiate therapy when pt is more medically stable and able to actively participate in skilled therapy. KENJI DELANEY Feb 01, 2021 06:46
--- NOTE | 2021-02-01 07:49 | Physical Therapy Progress Note ---
Therapy Progress Note Patient is currently intubated and sedated. Will monitor and start when appropriate. NIRMAL BELTRE PT Feb 01, 2021 07:49
[2021-02-01] MEDS: PANTOPRAZOLE 40 MG (PROTONIX) VIAL IV SCH ×2 (08:37→20:52)
[2021-02-01] MEDS: ASPIRIN E.C. 81 MG (ECOTRIN) TAB PO SCH (08:37)
[2021-02-01] MEDS: ENOXAPARIN 40 MG/0.4 ML (LOVENOX) SYR SC SCH (08:37)
[2021-02-01] MEDS: amLODIPine 10 MG (NORVASC) TAB PO SCH (08:38)
--- NOTE | 2021-02-01 10:13 | Progress Note - Cardiology ---
Cardiology SOAP Progress Note Subjective: Intubated and sedated Objective: I&O/Vital Signs 02/01/21 02/01/21 02/01/21 02/01/21 01:00 01:00 02:00 02:08 Pulse 75 80 75 Resp 30 27 B/P (MAP) 133/92 (106) 124/72 (89) Pulse Ox 99 98 99 O2 Delivery Mechanical Ventilator Mechanical Ventilator O2 Flow Rate 30.00 30.00 FiO2 30 02/01/21 02/01/21 02/01/21 02/01/21 03:00 03:19 03:20 03:53 Temp 36.2 Pulse 86 86 86 Resp 38 B/P (MAP) 130/84 (99) 110/76 110/76 Pulse Ox 99 O2 Delivery Mechanical Ventilator O2 Flow Rate 30.00 02/01/21 02/01/21 02/01/21 02/01/21 04:00 05:00 06:00 06:21 Pulse 81 76 77 79 Resp 32 33 20 30 B/P (MAP) 131/84 (100) 131/89 (103) 132/87 (102) Pulse Ox 98 96 97 97 O2 Delivery Mechanical Ventilator Mechanical Ventilator Mechanical Ventilator O2 Flow Rate 30.00 30.00 30.00 FiO2 28 02/01/21 02/01/21 02/01/21 02/01/21 06:39 07:00 07:50 08:00 Temp 37.9 Pulse 84 91 87 Resp 28 25 B/P (MAP) 121/70 (87) 132/83 (99) Pulse Ox 97 97 O2 Delivery Mechanical Ventilator Mechanical Ventilator O2 Flow Rate 30.00 30.00 02/01/21 02/01/21 02/01/21 02/01/21 09:00 09:12 09:19 09:19 Pulse 80 88 Resp 29 B/P (MAP) 128/84 (99) 115/68 115/68 Pulse Ox 96 97 O2 Delivery Mechanical Ventilator O2 Flow Rate 30.00 FiO2 28 02/01/21 02/01/21 02/01/21 02/01/21 10:00 11:00 11:39 12:00 Temp 37.4 Pulse 87 77 77 Resp 27 25 30 B/P (MAP) 135/82 (99) 140/89 (106) 149/95 (113) Pulse Ox 98 99 97 O2 Delivery Mechanical Ventilator Mechanical Ventilator Mechanical Ventilator O2 Flow Rate 30.00 30.00 30.00 02/01/21 12:39 Pulse 79 02/01/21 00:00 Intake Total 1420 ml Output Total 1400 ml Balance 20 ml Weight (Pounds): 280 Weight (Ounces): 0.0 Weight (Calculated Kilograms): 127.474736 Constitutional: well-developed, well-nourished Respiratory: other (fair air entry) Cardiovascular: regular rate-rhythm; No JVD; S1 and S2 Gastrointestional: round, audible bowel sounds Extremities: other (mild to mod LE swelling) Neurologic/Psychiatric: other (sedated; unable to cooperate with neuro exam) Skin: No rash on exposed areas, No ulcerations on exposed areas Results/Procedures: Labs Laboratory Tests 01/31/21 17:15: Glucometer 260H 01/31/21 20:13: Glucometer 247H 01/31/21 23:02: Glucometer 244H 01/31/21 23:46: Glucometer 252H 02/01/21 03:25: White Blood Count 10.4, Red Blood Count 3.70L, Hemoglobin 8.7L, Hematocrit 31L, Mean Corpuscular Volume 84, Mean Corpuscular Hemoglobin 24L, Mean Corpuscular Hemoglobin Concent 28L, Red Cell Distribution Width 28.0H, Platelet Count 273, Mean Platelet Volume 9.7, Immature Granulocyte % (Auto) 4, Neutrophils (%) (A uto) 93H, Lymphocytes (%) (Auto) 1L, Monocytes (%) (Auto) 1, Eosinophils (%) (Auto) 0, Basophils (%) (Auto) 0, Neutrophils # (Auto) 9.6H, Lymphocytes # (Auto) 0.1L, Monocytes # (Auto) 0.2, Eosinophils # (Auto) 0.0, Basophils # (Auto) 0.0, Immature Granulocyte # (Auto) 0.5H, Sodium Level 141, Potassium Level 3.4L, Chloride Level 112H, Carbon Dioxide Level 16L, Anion Gap 13, Blood Urea Nitrogen 32H, Creatinine 1.02, Estimat Glomerular Filtration Rate 61, BUN/C reatinine Ratio 31, Glucose Level 334H, Calcium Level 7.4L, Phosphorus Level 4.4, Magnesium Level 2.2, Triglycerides Level 599#H 02/01/21 03:45: Blood Gas Puncture Site L RADIAL, Blood Gas Patient Temperature 36.2, Arterial Blood pH 7.32*L, Arterial Blood Partial Pressure CO2 35, Arterial Blood Partial Pressure O2 56L, Arterial Blood HCO3 18L, Arterial Blood Total CO2 18.8L, Arterial Blood Oxygen Saturation 87L, Arterial Blood Base Excess -7.3L, Denilson Test NO, Blood Gas Ventilator Setting YES, Blood Gas Inspired Oxygen NA 02/01/21 09:02: Urine Ketones NEGATIVE 02/01/21 11:27: Glucometer 329H Microbiology 01/29/21 MRSA Screen - Final, Complete No growth 01/29/21 Urine Culture - Final, Complete YEAST 01/27/21 Blood Culture - Preliminary, Resulted No growth Procedures NAME: MEGHAN [facility]ONA [facility] REC#: [id number] PT STATUS: ADM IN : 1980 PHYSICIAN: ENOC GUTIÉRREZ JR, MD ADMIT DATE: 01/27/21/ICU Signed Date of Exam:01/31/21 CHEST 1 VIEW, AP/PA ONLY HISTORY: Acute respiratory failure COMPARISON: 01/30/2021 TECHNIQUE: Frontal view of the chest. FINDINGS: The right jugular line tip projects over the SVC. The endotracheal tube is 2.5 cm above the yamileth. The tip of the enteric tube projects over the stomach. Lung volumes are low. There is marked cardiomegaly. There are bilateral airspace opacities. No pleural effusion or pneumothorax is seen. Aeration overall appears similar to the prior exam. IMPRESSION: 1. Low lung volumes with bilateral airspace opacities. Aeration appears stable since the prior study. 2. Marked cardiomegaly. 3. Stable tubes and lines. Dictated by: Dictated on workstation # [id number] Dict: 01/31/2129 Trans: 01/31/211710 CVB [id number] Interpreted by: EDISY RECINOS MD Electronically signed by: DEISY RECINOS MD 01/31/211710 A/P: Assessment: Troponin level elevated - Probable Type 2 NM secondary to hypoxia/sepsis - MPI of January 11, 2020 is indicative of anterolateral ischemia. Mild to mod impairment of global LV systolic function. LVEF 40%. Mod cardiomegaly. Cardiac cath advised and scheduled, however she cancelled and did not f/u Sepsis - management per medical/eICU services Acute on chronic diastolic heart failure - Echocardiogram of January 08, 2021 LVEF 55-65%. PASP approx 20-25 mmHg Acute on chronic respiratory failure requiring intubation Essential hypertension - continue BB and Norvasc HLD - continue statin Morbid obesity - BMI 54.5 MS - following with [facility] neurology Anemia of undetermined etiology Plan: Complex management issue with co-morbidities Management of sepsis per medical/eICU services Continue ASA Continue BB and Norvasc for BP - adjust as indicated Continue diuretics - adjust as indicated Monitor lab closely, replace electrolytes as indicated We have reviewed Dr. Gutiérrez notes Further recs will be based on her hospital course NATE OVALLE Feb 01, 2021 10:13
--- NOTE | 2021-02-01 10:35 | Progress Note - Cardiology ---
Cardiology SOAP Progress Note Subjective: Pt intubated and on mech vent and unable to provide any history Father by her bedside Objective: I&O/Vital Signs 01/31/21 02/01/21 02/01/21 02/01/21 23:00 00:00 00:23 01:00 Temp 35.5 Pulse 81 78 75 Resp 38 30 B/P (MAP) 125/79 (94) 127/92 (104) 133/92 (106) Pulse Ox 99 98 99 O2 Delivery Mechanical Ventilator Mechanical Ventilator Mechanical Ventilator O2 Flow Rate 30.00 30.00 30.00 02/01/21 02/01/21 02/01/21 02/01/21 01:00 02:00 02:08 03:00 Pulse 80 75 86 Resp 27 38 B/P (MAP) 124/72 (89) 130/84 (99) Pulse Ox 98 99 99 O2 Delivery Mechanical Ventilator Mechanical Ventilator O2 Flow Rate 30.00 30.00 FiO2 30 02/01/21 02/01/21 02/01/21 02/01/21 03:19 03:20 03:53 04:00 Temp 36.2 Pulse 86 86 81 Resp 32 B/P (MAP) 110/76 110/76 131/84 (100) Pulse Ox 98 O2 Delivery Mechanical Ventilator O2 Flow Rate 30.00 02/01/21 02/01/21 02/01/21 02/01/21 05:00 06:00 06:21 06:39 Pulse 76 77 79 84 Resp 33 20 30 B/P (MAP) 131/89 (103) 132/87 (102) Pulse Ox 96 97 97 O2 Delivery Mechanical Ventilator Mechanical Ventilator O2 Flow Rate 30.00 30.00 FiO2 28 02/01/21 02/01/21 02/01/21 02/01/21 07:00 07:50 08:00 09:00 Temp 37.9 Pulse 91 87 80 Resp 28 25 B/P (MAP) 121/70 (87) 132/83 (99) 128/84 (99) Pulse Ox 97 97 96 O2 Delivery Mechanical Ventilator Mechanical Ventilator Mechanical Ventilator O2 Flow Rate 30.00 30.00 30.00 02/01/21 02/01/21 02/01/21 02/01/21 09:12 09:19 09:19 10:00 Pulse 88 87 Resp 29 27 B/P (MAP) 115/68 115/68 135/82 (99) Pulse Ox 97 98 O2 Delivery Mechanical Ventilator O2 Flow Rate 30.00 FiO2 28 02/01/21 00:00 Intake Total 1420 ml Output Total 1400 ml Balance 20 ml Weight (Pounds): 280 Weight (Ounces): 0.0 Weight (Calculated Kilograms): 127.825092 Constitutional: other (intubated, sedated, on mech vent) Respiratory: No accessory muscle use; other (fair bilat air entry, diminished at the bases) Cardiovascular: regular rate-rhythm, S1 and S2, systolic murmur (soft MAIRA at card base) Gastrointestional: No tender; soft; No guarding, No rebound; audible bowel sounds Extremities: swelling (mod, non-pitting, bilateral leg edema); No clubbing, No cyanosis Neurologic/Psychiatric: other (intubated, sedated, on mech vent) Skin: warm/dry Results/Procedures: Labs Laboratory Tests 01/31/21 11:47: Glucometer 252H 01/31/21 17:15: Glucometer 260H 01/31/21 20:13: Glucometer 247H 01/31/21 23:02: Glucometer 244H 01/31/21 23:46: Glucometer 252H 02/01/21 03:25: White Blood Count 10.4, Red Blood Count 3.70L, Hemoglobin 8.7L, Hematocrit 31L, Mean Corpuscular Volume 84, Mean Corpuscular Hemoglobin 24L, Mean Corpuscular Hemoglobin Concent 28L, Red Cell Distribution Width 28.0H, Platelet Count 273, Mean Platelet Volume 9.7, Immature Granulocyte % (Auto) 4, Neutrophils (%) (Auto) 93H, Lymphocytes (%) (Auto) 1L, Monocytes (%) (Auto) 1, Eosinophils (%) (Auto) 0, Basophils (%) (Auto) 0, Neutrophils # (Auto) 9.6H, Lymphocytes # (Auto) 0.1L, Monocytes # (Auto) 0.2, Eosinophils # (Auto) 0.0, Basophils # (Auto) 0.0, Immature Granulocyte # (Auto) 0.5H, Sodium Level 141, Potassium Level 3.4L, Chloride Level 112H, Carbon Dioxide Level 16L, Anion Gap 13, Blood Urea Nitrogen 32H, Creatinine 1.02, Estimat Glomerular Filtration Rate 61, BUN/Creatinine Ratio 31, Glucose Level 334H, Calcium Level 7.4L, Phosphorus Level 4.4, Magnesium Level 2.2, Triglycerides Level 599#H 02/01/21 03:45: Blood Gas Puncture Site L RADIAL, Blood Gas Patient Temperature 36.2, Arterial Blood pH 7.32*L, Arterial Blood Partial Pressure CO2 35, Arterial Blood Partial Pressure O2 56L, Arterial Blood HCO3 18L, Arterial Blood Total CO2 18.8L, Arterial Blood Oxygen Saturation 87L, Arterial Blood Base Excess -7.3L, Denilson Test NO, Blood Gas Ventilator Setting YES, Blood Gas Inspired Oxygen NA 02/01/21 09:02: Urine Ketones NEGATIVE Microbiology 01/29/21 MRSA Screen - Final, Complete No growth 01/29/21 Urine Culture - Final, Complete YEAST 01/27/21 Blood Culture - Preliminary, Resulted No growth Laboratory Tests 01/31/21 04:40 02/01/21 03:25 A/P: Assessment: Acute, hypoxic respiratory failure, likely multifactorial (see below) Morbid obesity with probable obesity-hypoventilation Ac on chornic HFpEF - Echocardiogram of January 13, 2020 showed concentric hypertrophy. LVEF 55-60%. LA mildly dilated. PASP approx 28 mmHg Troponin level elevated - Probable Type 2 AK secondary to hypoxia - MPI of January 11, 2020 is indicative of anterolateral ischemia. Mild to mod impairment of global LV systolic function. LVEF 40%. Mod cardiomegaly. Cardiac cath advised and scheduled, however she cancelled and did not f/u. H/o hypertension H/o hyperlipidemia H/o amenorrhea since 2015 due to polycystic ovarian H/o impaired fasting glucose Plan: * I examined the patient, reviewed her records, and spoke with her father * Continue diuretics as needed and as tolerated * Monitor labs * [facility] FRANCO Montes MD FACP [facility] CCDS Feb 01, 2021 10:35
[2021-02-01] MEDS: NS IV SCH ×4 (10:38→20:52)
[2021-02-01] MEDS: SOLU MEDROL IV SCH ×4 (10:38→20:52)
--- NOTE | 2021-02-01 10:56 | Tele-ICU Progress Note ---
Subjective Date Seen by a Provider: Feb 01, 2021 Time Seen by a Provider: 10:56 Sepsis Event Evaluation Height, Weight, BMI Height: 5'2.00" Weight: 280lbs. 0.0oz. 127.324537xv; 52.92 BMI Method:Stated Exam Exam Patient acknowledged, consented, and participated in this virtual visit which was conducted using real time audio/video Vital Signs Date Time Temp Pulse Resp B/P (MAP) Pulse Ox O2 Delivery O2 Flow Rate FiO2 02/01/21 10:00 87 27 135/82 (99) 98 Mechanical Ventilator 30.00 02/01/21 09:19 115/68 02/01/21 09:19 115/68 02/01/21 09:12 88 29 97 28 02/01/21 09:00 80 128/84 (99) 96 Mechanical Ventilator 30.00 02/01/21 08:00 87 25 132/83 (99) 97 Mechanical Ventilator 30.00 02/01/21 07:50 37.9 02/01/21 07:00 91 28 121/70 (87) 97 Mechanical Ventilator 30.00 02/01/21 06:39 84 02/01/21 06:21 79 30 97 28 02/01/21 06:00 77 20 132/87 (102) 97 Mechanical Ventilator 30.00 02/01/21 05:00 76 33 131/89 (103) 96 Mechanical Ventilator 30.00 02/01/21 04:00 81 32 131/84 (100) 98 Mechanical Ventilator 30.00 02/01/21 03:53 36.2 02/01/21 03:20 86 110/76 02/01/21 03:19 86 110/76 02/01/21 03:00 86 38 130/84 (99) 99 Mechanical Ventilator 30.00 02/01/21 02:08 75 27 99 30 02/01/21 02:00 124/72 (89) 98 Mechanical Ventilator 30.00 02/01/21 01:00 80 02/01/21 01:00 75 30 133/92 (106) 99 Mechanical Ventilator 30.00 02/01/21 00:23 35.5 02/01/21 00:00 78 38 127/92 (104) 98 Mechanical Ventilator 30.00 01/31/21 23:00 81 125/79 (94) 99 Mechanical Ventilator 30.00 01/31/21 22:28 76 127/80 01/31/21 22:05 74 23 99 30 01/31/21 22:00 85 21 126/85 (99) 99 Mechanical Ventilator 30.00 01/31/21 21:00 73 14 144/98 (113) 99 Mechanical Ventilator 30.00 01/31/21 20:02 75 146/95 01/31/21 20:00 36.2 01/31/21 20:00 75 20 146/95 (112) 98 Mechanical Ventilator 30.00 01/31/21 20:00 98 Mechanical Ventilator 30 01/31/21 19:00 80 01/31/21 19:00 78 29 155/104 (121) 98 Mechanical Ventilator 30.00 01/31/21 18:18 73 23 97 30 01/31/21 18:00 72 26 139/97 (111) 98 Mechanical Ventilator 30.00 01/31/21 17:09 73 168/113 01/31/21 17:00 73 21 168/113 (131) 98 Mechanical Ventilator 30.00 01/31/21 16:00 72 21 167/109 (128) 97 Mechanical Ventilator 30.00 01/31/21 16:00 36.8 01/31/21 15:00 75 24 168/103 (124) 97 Mechanical Ventilator 30.00 01/31/21 14:11 Mechanical Ventilator 30.00 01/31/21 14:00 74 30 143/84 (103) 92 Mechanical Ventilator 21.00 01/31/21 13:56 71 29 90 21 01/31/21 13:03 68 153/95 01/31/21 13:02 68 153/95 01/31/21 13:00 68 24 153/95 (114) 92 Mechanical Ventilator 21.00 01/31/21 12:33 69 01/31/21 12:16 36.0 01/31/21 12:00 69 25 147/104 (118) 92 Mechanical Ventilator 21.00 01/31/21 11:58 35.4 01/31/21 11:00 68 24 153/106 (122) 92 Mechanical Ventilator 21.00 01/31/21 10:58 68 157/109 01/31/21 10:57 68 24 157/109 01/31/21 10:57 68 157/109 I & O 02/01/21 07:00 Intake Total 2810 ml Output Total 1750 ml Balance 1060 ml Height & Weight Height: 5'2.00" Weight: 280lbs. 0.0oz. 127.238247dt; 52.92 BMI Method:Stated General Appearance: No WD/WN; Mild Distress, Obese, Other (Sedated on Precedex and Propofol- will be switched to Versed) HEENT: Moist Mucous Membranes Neck: Full Range of Motion, Normal Inspection Respiratory: Chest Non Tender, Lungs Clear, Other (Alert oriented, conversing well; Abdomen soft NTTP Eyes- EOMI ) Cardiovascular: Regular Rate, Rhythm, Tachycardia Capillary Refill: Less Than 3 Seconds Gastrointestinal: normal bowel sounds, non tender, soft Extremity: Normal Capillary Refill, Pedal Edema (+3 pitting edema up to knees - right worse than left.), Other Neurologic/Psychiatric: Alert, Oriented x3, No Motor/Sensory Deficits, Normal Mood/Affect Skin: Normal Color, Warm/Dry Results Lab Laboratory Tests 01/31/21 04:40 02/01/21 03:25 Assessment/Plan Assessment/Plan (Tele-ICU Physician , Progress Note ) Available chart/ vitals / labs / Images reviewed Video assessment done using teleICU camera, rest of exam as per RN Discussed with RN Events overnight : LOW GRADE FEVER hemodynamically stable, no pressors, I/O - pos even Drips verced , precedex 1.5 prn ativan As per RN exam : Consultants: cards VENT SETTINGS. AC rr 14 TV 450 ( 8 cc/kg) +10 50% ABG reviewed A/P Acute resp failure ( on chronic ) hypoxic, hypercarbic - conbination of CHF. possibla PNA , receiving opioids po and possible TRALI post transfusion , less likely PE ( on AC , and was on AC with neg w/up during recent hosp - intubated 01/29 -01/30 - cxr with elevted right diphragm - keep on peep 10 - even volume status last 24 h - keep on lasix - ABG WITH MET ACIDOSIS - ? DIABETIC , THIS WILL PREVENT SAFE WEANNG - WILL CHECK KETONES - ( if positive ? INSULIN GTT ) , no propofole - folloe acidosis - cannot mattie SBT with acidosis - follow tomorrow HCAP - vancomycin and cefepime - sputum cx ( recent tx for sepsis - cellulitis (vancomycin, zosyn 01/07 YEAST IN URINE AND SPUTUM - IN FACE OF STEROIDS - add FLUCONAZOLE AECOPD - on IV steroids very high dose Suspected MS - on steroids 500 MG BID - today last dose of 5 days Acute on chronic diastolic heart failure -ECHO 01/08 - 55% , RVSP 20 mm - diuresis - but seems positive last 24 h - id records correct need to increase lasix type II non-STEMI - ECHO pending - lovenox proph dose 01/29 given anemia and blood transfusion ( 130 bid given this am Anemia - - monitor - for now , w/up as per PCP (received 1 U PCBC 01/28 - resume hep sq proph DMII - as per PCP - no DKA , but significnt hyperglycemia Chtonic hypoxia - VQ neg and LE US neg 01/09/21 an risk for HAILE /OHV UDS positive for opioids and amphetamine last admission -on phentermine for weight loss -on hydrocodone for foot and leg pain rib fx. seen on cxr. - no c/o or history Lines : R IJ 01/29 , (Central Line Necessity Reviewed) Hernandez: + OG: + Nutrition: to satrt today Analgesia: fentanyl prn Anxiety/ delirium VTE Prophylaxis: hold lovenox 01/29 - resume proph 01/30 Stress Ulcer Prophylaxis: PPI Glycemic Control: poor Plans in collaboration with bedside consultants and IM MDs. Discussed with RN to reach out if any questions or concerns A total of 40 minutes of critical care time was devoted to this patient today, required to treat and/or prevent further deterioration of critical care condition ( as above ) . NOÉ CAO MD Feb 01, 2021 10:56
--- NOTE | 2021-02-01 14:51 | Diagnostic Imaging Report ---
INDICATION: Hypoxia Frontal chest obtained at 0233 p.m. and compared to 01/31/2021. The heart is mildly enlarged. ET tube tip overlies mid to lower trachea. NG tube tip is not well visualized. Right IJ catheter is unchanged. There is worsening consolidation in the right mid to lower lung field compared to yesterday. The left lung remains grossly clear. There is central vascular congestion. IMPRESSION: Unchanged life support lines. Central vascular congestion remains present. There is worsening infiltrate in the right midlung and base compared to the prior study. Dictated by: Dictated on workstation # [id number]
[2021-02-01] MEDS ORDERED: FUROSEMIDE 40 MG/4 ML INJ (LASIX) IVP NR (16:30)
[2021-02-01] MEDS ORDERED: KCL 20 MEQ TAB (K-DUR) PO NR (16:30)
[2021-02-01] MEDS: SILVASORB GEL 1.5 OZ TP SCH (20:00)
[2021-02-01] MEDS: ROSUVASTATIN 20 MG (CRESTOR) TABLET PO SCH (20:53)
[2021-02-01] MEDS: traZODone 100 MG (DESYREL) TAB PO SCH (21:00)
--- NOTE | 2021-02-01 23:15 | Progress Note ---
Subjective Subjective Date Seen by Provider: Feb 01, 2021 Time Seen by Provider: 08:30 Still intubated. at bedside. uric acid a little elevated. UOP was better with diuresis. Review of Systems ROS Unable to Obtain: intubated Neurological: Other (sedated and on vent) All Other Systems Reviewed All Other Systems Reviewed: Yes Objective Exam Vital Signs Vital Signs Date Time Temp Pulse Resp B/P (MAP) Pulse Ox O2 Delivery O2 Flow Rate FiO2 02/01/21 21:43 74 25 99 28 02/01/21 21:00 74 147/96 (113) 99 Mechanical Ventilator 30.00 02/01/21 20:53 74 145/97 02/01/21 20:32 36.8 02/01/21 20:00 74 148/99 (115) 99 Mechanical Ventilator 30.00 02/01/21 19:00 75 144/93 (110) 99 Mechanical Ventilator 30.00 02/01/21 18:41 75 27 99 28 02/01/21 18:30 78 02/01/21 18:00 82 130/85 (100) 98 Mechanical Ventilator 30.00 02/01/21 17:00 87 124/79 (94) 97 Mechanical Ventilator 30.00 02/01/21 16:58 36.2 02/01/21 16:00 77 134/94 (107) 98 Mechanical Ventilator 30.00 02/01/21 15:54 97 Mechanical Ventilator 28 02/01/21 15:35 130/88 02/01/21 15:00 78 139/90 (106) 97 Mechanical Ventilator 30.00 02/01/21 14:00 90 39 123/78 (93) 97 Mechanical Ventilator 30.00 02/01/21 13:03 87 33 96 28 02/01/21 13:00 86 43 131/78 (95) 96 Mechanical Ventilator 30.00 02/01/21 12:39 79 02/01/21 12:30 98 Mechanical Ventilator 28 02/01/21 12:00 77 30 149/95 (113) 97 Mechanical Ventilator 30.00 02/01/21 11:39 37.4 02/01/21 11:00 77 25 140/89 (106) 99 Mechanical Ventilator 30.00 02/01/21 10:00 87 27 135/82 (99) 98 Mechanical Ventilator 30.00 02/01/21 09:19 115/68 02/01/21 09:19 115/68 02/01/21 09:12 88 29 97 28 02/01/21 09:00 80 128/84 (99) 96 Mechanical Ventilator 30.00 02/01/21 08:00 87 25 132/83 (99) 97 Mechanical Ventilator 30.00 02/01/21 07:50 37.9 02/01/21 07:45 98 Mechanical Ventilator 28 02/01/21 07:00 91 28 121/70 (87) 97 Mechanical Ventilator 30.00 02/01/21 06:39 84 02/01/21 06:21 79 30 97 28 02/01/21 06:00 77 20 132/87 (102) 97 Mechanical Ventilator 30.00 02/01/21 05:00 76 33 131/89 (103) 96 Mechanical Ventilator 30.00 02/01/21 04:00 81 32 131/84 (100) 98 Mechanical Ventilator 30.00 02/01/21 03:53 36.2 02/01/21 03:20 86 110/76 02/01/21 03:19 86 110/76 02/01/21 03:00 86 38 130/84 (99) 99 Mechanical Ventilator 30.00 02/01/21 02:08 75 27 99 30 02/01/21 02:00 124/72 (89) 98 Mechanical Ventilator 30.00 02/01/21 01:00 80 02/01/21 01:00 75 30 133/92 (106) 99 Mechanical Ventilator 30.00 02/01/21 00:23 35.5 02/01/21 00:00 78 38 127/92 (104) 98 Mechanical Ventilator 30.00 I & O 02/01/21 07:00 Intake Total 2810 ml Output Total 1750 ml Balance 1060 ml General Appearance: No WD/WN; Mild Distress, Obese, Other (Sedated) Eyes: Bilateral Eye Normal Inspection, Bilateral Eye PERRL HEENT: Moist Mucous Membranes Neck: Full Range of Motion, Normal Inspection Respiratory: Chest Non Tender, Decreased Breath Sounds (right), Other Cardiovascular: Regular Rate, Rhythm; No Tachycardia Gastrointestinal: Normal Bowel Sounds Extremity: Normal Capillary Refill, Pedal Edema (right leg), Other Neurologic/Psychiatric: No Alert, No Oriented x3, No No Motor/Sensory Deficits, No Normal Mood/Affect Skin: Normal Color, Warm/Dry Results Lab Laboratory Tests 01/31/21 23:46: Glucometer 252H 02/01/21 03:25: White Blood Count 10.4, Red Blood Count 3.70L, Hemoglobin 8.7L, Hematocrit 31L, Mean Corpuscular Volume 84, Mean Corpuscular Hemoglobin 24L, Mean Corpuscular Hemoglobin Concent 28L, Red Cell Distribution Width 28.0H, Platelet Count 273, Mean Platelet Volume 9.7, Immature Granulocyte % (Auto) 4, Neutrophils (%) (Auto) 93H, Lymphocytes (%) (Auto) 1L, Monocytes (%) (Auto) 1, Eosinophils (%) (Auto) 0, Basophils (%) (Auto) 0, Neutrophils # (Auto) 9.6H, Lymphocytes # (Auto) 0.1L, Monocytes # (Auto) 0.2, Eosinophils # (Auto) 0.0, Basophils # (Auto) 0.0, Immature Granulocyte # (Auto) 0.5H, Sodium Level 141, Potassium Level 3.4L, Chloride Level 112H, Carbon Dioxide Level 16L, Anion Gap 13, Blood Urea Nitrogen 32H, Creatinine 1.02, Estimat Glomerular Filtration Rate 61, BUN/Creatinine Ratio 31, Glucose Level 334H, Calcium Level 7.4L, Phosphorus Level 4.4, Magnesium Level 2.2, Triglycerides Level 599#H 02/01/21 03:45: Blood Gas Puncture Site L RADIAL, Blood Gas Patient Temperature 36.2, Arterial Blood pH 7.32*L, Arterial Blood Partial Pressure CO2 35, Arterial Blood Partial Pressure O2 56L, Arterial Blood HCO3 18L, Arterial Blood Total CO2 18.8L, Arterial Blood Oxygen Saturation 87L, Arterial Blood Base Excess -7.3L, Denilson Test NO, Blood Gas Ventilator Setting YES, Blood Gas Inspired Oxygen NA 02/01/21 09:02: Urine Ketones NEGATIVE 02/01/21 11:27: Glucometer 329H 02/01/21 18:23: Glucometer 357H 02/01/21 23:09: Microbiology 01/29/21 MRSA Screen - Final, Complete No growth 01/29/21 Urine Culture - Final, Complete YEAST 01/27/21 Blood Culture - Preliminary, Resulted No growth Assessment/Plan Assessment/Plan Assessment and Plan Cr stable. Diuresing appreciate eICU, cardiology hgb stable- infusing Fe. -fluconazole added for yeast in sputum/urine. -finished cefepime 02/01/21 -stopped high dose steroids 02/01/21 (5 days) -sedation vacation- increased resp distress. Problems: (1) Acute respiratory failure with hypoxia Assessment & Plan: supportive care- RT, oxygen, diuresing- (2) Disability due to neurological disorder Assessment & Plan: still unclear on etiology- rechecking erlichiosis panel at end of week to see if she has IgG. Steroids did not help. - had signs of MS- oligoclonal bands- elevated on LP 2 weeks ago. (3) Acute on chronic diastolic heart failure (4) Essential hypertension (5) Chronic kidney disease Qualifiers: (6) Obesity hypoventilation syndrome (7) Anemia of chronic disease (8) Morbid obesity (9) Type 2 diabetes mellitus with hyperglycemia (10) Positive serology for Erlichiosis Assessment & Plan: on doxycycline CHAZ ADLER MD Feb 01, 2021 23:15
[2021-02-02] VITALS (31 sets, daily range): BP systolic 114–146; BP diastolic 66–98
[2021-02-02] MEDS: DexMEDEtomidine 250 ML DRIP 250 ML IV SCH ×4 (02:24→20:18)
[2021-02-02] MEDS: RT-ALBUTEROL/IPRATROPIUM 3 ML (DUONEB) VIAL INH SCH ×4 (02:28→21:29)
[2021-02-02 03:03] LABS: BASOPHILS % (AUTO) 0 % (0-10); EOSINOPHILS % (AUTO) 0 % (0-10); HEMATOCRIT 31 % (35-52); HEMOGLOBIN 8.6 g/dL (11.5-16.0); LYMPHOCYTES # (AUTO) 0.1 10^3/uL (1.0-4.0); LYMPHOCYTES % (AUTO) 1 % (12-44); MEAN CORPUSCULAR HEMOGLOBIN 23 pg (25-34); MEAN CORPUSCULAR HGB CONC 28 g/dL (32-36); MEAN CORPUSCULAR VOLUME 85 fL (80-99); MEAN PLATELET VOLUME 10.4 fL (9.0-12.2); MONOCYTES # (AUTO) 0.2 10^3/uL (0.0-1.0); MONOCYTES % (AUTO) 2 % (0-12); NEUTROPHILS # (AUTO) 8.6 10^3/uL (1.8-7.8); NEUTROPHILS % (AUTO) 95 % (42-75); PLATELET COUNT 277 10^3/uL (130-400); WHITE BLOOD COUNT 9.1 10^3/uL (4.3-11.0)
[2021-02-02 03:05] LABS: POTASSIUM 3.3 MMOL/L (3.6-5.0)
[2021-02-02 03:07] LABS: CALCIUM 7.3 MG/DL (8.5-10.1)
[2021-02-02 03:11] LABS: CREATININE SERUM 0.96 MG/DL (0.60-1.30)
[2021-02-02] MEDS: POTASSIUM CL 10MEQ/50ML IVPB 50 ML IV SCH ×4 (03:11→04:15)
[2021-02-02] MEDS: KCL 20 MEQ TAB (K-DUR) PO SCH (03:12)
[2021-02-02 03:14] LABS: MAGNESIUM 2.3 MG/DL (1.6-2.4)
[2021-02-02 03:43] LABS: ABG BASE EXCESS -6.1 MMOL/L (-2.5-2.5); ABG OXYGEN SATURATION 98 % (94-100); ABG PCO2 31 MMHG (35-45); ABG PH 7.39 (7.37-7.43); ABG PO2 103 MMHG (79-93); ABG TCO2 18.9 MMOL/L (21.0-31.0)
[2021-02-02 03:45] LABS: ALLENS TEST YES-POS; INSPIRED O2 30%; VENTILATOR YES
[2021-02-02] MEDS: MAGNESIUM 1 GM/100 ML IVPB 100 ML IV SCH (04:17)
[2021-02-02] MEDS: inSUlin ASPART (NovoLOG) 1 UNIT/0.01 ML (CHARGE PER UNIT) SQ SCH ×4 (05:34→23:57)
[2021-02-02] MEDS: DOXYCYCLINE 100 MG (VIBRAMYCIN) TABLET PO SCH ×2 (06:02→17:44)
[2021-02-02] MEDS: FUROSEMIDE 40 MG/4 ML INJ (LASIX) IVP SCH ×2 (06:02→17:44)
[2021-02-02] MEDS: MIDAZOLAM DRIP PRE-MIX 100 ML IV SCH ×3 (06:09→20:16)
--- NOTE | 2021-02-02 07:05 | Diagnostic Imaging Report ---
INDICATION: Respiratory failure Portable chest 2:53 AM There is an ET tube projecting over the trachea. NG tube enters the stomach. Right IJ central line tip projects over the SVC. The infiltrate in the right lung seen on the previous day has improved considerably. There is some residual consolidation in the right perihilar region, however. IMPRESSION: Improving infiltrate right lung Dictated by: Dictated on workstation # [id number]
--- NOTE | 2021-02-02 07:56 | Physical Therapy Progress Note ---
Therapy Progress Note Patient is currently intubated and sedated. Will monitor and start when appropriate. NIRMAL BELTRE PT Feb 02, 2021 07:56
[2021-02-02] MEDS ORDERED: FUROSEMIDE 40 MG/4 ML INJ (LASIX) IVP NR (08:00)
[2021-02-02] MEDS: ASPIRIN E.C. 81 MG (ECOTRIN) TAB PO SCH (08:57)
[2021-02-02] MEDS: amLODIPine 10 MG (NORVASC) TAB PO SCH (08:57)
[2021-02-02] MEDS: FLUCONAZOLE 100 MG/50 ML 50 ML IV SCH (08:58)
[2021-02-02] MEDS: PANTOPRAZOLE 40 MG (PROTONIX) VIAL IV SCH ×2 (08:58→20:18)
[2021-02-02] MEDS: IRON SUCROSE 200 MG/10 ML (VENOFER) VIAL IV SCH (08:58)
[2021-02-02] MEDS: fentaNYL PATCH 25 MCG (DURAGESIC) TD SCH (08:58)
[2021-02-02] MEDS: ENOXAPARIN 40 MG/0.4 ML (LOVENOX) SYR SC SCH (08:58)
[2021-02-02] MEDS: FENTANYL PATCH REMOVAL TP SCH (08:59)
--- NOTE | 2021-02-02 09:47 | Progress Note - Cardiology ---
Cardiology SOAP Progress Note Subjective: Intubated, sedated, on mech vent Her father is by her bedside Objective: I&O/Vital Signs 02/01/21 02/01/21 02/01/21 02/02/21 22:00 23:00 23:30 00:00 Pulse 74 77 77 78 Resp 20 20 20 B/P (MAP) 145/94 (111) 144/91 (108) 145/88 139/87 (104) Pulse Ox 99 99 100 O2 Delivery Mechanical Ventilator Mechanical Ventilator Mechanical Ventilator O2 Flow Rate 30.00 30.00 30.00 02/02/21 02/02/21 02/02/21 02/02/21 00:00 00:31 01:00 02:00 Temp 37.0 Pulse 79 86 81 Resp 20 20 B/P (MAP) 146/94 (111) 140/89 (106) Pulse Ox 100 100 O2 Delivery Mechanical Ventilator Mechanical Ventilator O2 Flow Rate 30.00 30.00 02/02/21 02/02/21 02/02/21 02/02/21 02:24 02:28 03:00 04:00 Pulse 80 79 114 78 Resp 27 20 20 B/P (MAP) 139/86 136/83 (100) 126/78 (94) Pulse Ox 100 99 99 O2 Delivery Mechanical Ventilator Mechanical Ventilator O2 Flow Rate 30.00 30.00 FiO2 28 02/02/21 02/02/21 02/02/21 02/02/21 05:00 06:00 06:09 07:00 Pulse 84 80 80 91 Resp 26 30 B/P (MAP) 129/78 (95) 115/67 (83) 142/88 Pulse Ox 99 100 O2 Delivery Mechanical Ventilator Mechanical Ventilator O2 Flow Rate 30.00 30.00 02/02/21 02/02/21 02/02/21 02/02/21 07:00 07:16 07:51 08:00 Pulse 92 90 90 86 Resp 35 32 B/P (MAP) 122/68 (86) 122/68 129/76 (93) Pulse Ox 99 99 97 O2 Delivery Mechanical Ventilator Mechanical Ventilator O2 Flow Rate 30.00 25.00 FiO2 25 02/02/21 02/02/21 08:04 09:00 Temp 36.4 Pulse 79 B/P (MAP) 141/81 (101) Pulse Ox 97 O2 Delivery Mechanical Ventilator O2 Flow Rate 25.00 02/02/21 00:00 Intake Total 950 ml Output Total 2100 ml Balance -1150 ml Weight (Pounds): 280 Weight (Ounces): 0.0 Weight (Calculated Kilograms): 127.364884 Constitutional: other (intubated, sedated, on mech vent) Respiratory: No accessory muscle use; other (fair bilat air entry, diminished at the bases) Cardiovascular: regular rate-rhythm, S1 and S2, systolic murmur (soft MAIRA at card base) Gastrointestional: No tender; soft; No guarding, No rebound; audible bowel sounds Extremities: swelling (mod, non-pitting, bilateral leg edema); No clubbing, No cyanosis Neurologic/Psychiatric: other (intubated, sedated, on mech vent) Skin: warm/dry Results/Procedures: Labs Laboratory Tests 02/01/21 11:27: Glucometer 329H 02/01/21 18:23: Glucometer 357H 02/01/21 23:09: Glucometer 336H 02/02/21 02:45: White Blood Count 9.1, Red Blood Count 3.67L, Hemoglobin 8.6L, Hematocrit 31L, Mean Corpuscular Volume 85, Mean Corpuscular Hemoglobin 23L, Mean Corpuscular Hemoglobin Concent 28L, Red Cell Distribution Width 28.9H, Platelet Count 277, Mean Platelet Volume 10.4, Immature Granulocyte % (Auto) 2, Neutrophils (%) (Auto) 95H, Lymphocytes (%) (Auto) 1L, Monocytes (%) (Auto) 2, Eosinophils (%) (Auto) 0, Basophils (%) (Auto) 0, Neutrophils # (Auto) 8.6H, Lymphocytes # (Auto) 0.1L, Monocytes # (Auto) 0.2, Eosinophils # (Auto) 0.0, Basophils # (Auto) 0.0, Immature Granulocyte # (Auto) 0.2H, Sodium Level 144, Potassium Level 3.3L, Chloride Level 114H, Carbon Dioxide Level 17L, Anion Gap 13, Blood Urea Nitrogen 39H, Creatinine 0.96, Estimat Glomerular Filtration Rate 65, BUN/Creatinine Ratio 41, Glucose Level 338H, Calcium Level 7.3L, Phosphorus Level 4.0, Magnesium Level 2.3 02/02/21 03:30: Blood Gas Puncture Site LEFT RADIAL, Blood Gas Patient Temperature 37.0, Arterial Blood pH 7.39, Arterial Blood Partial Pressure CO2 31L, Arterial Blood Partial Pressure O2 103H, Arterial Blood HCO3 18L, Arterial Blood Total CO2 18.9L, Arterial Blood Oxygen Saturation 98, Arterial Blood Base Excess -6.1L, Denilson Test YES-POS, Blood Gas Ventilator Setting YES, Blood Gas Inspired Oxygen 30% Microbiology 01/29/21 MRSA Screen - Final, Complete No growth 01/29/21 Urine Culture - Final, Complete YEAST 01/27/21 Blood Culture - Preliminary, Resulted No growth Laboratory Tests 02/01/21 03:25 02/02/21 02:45 A/P: Assessment: Acute, hypoxic respiratory failure, likely multifactorial (see below) Morbid obesity with probable obesity-hypoventilation Ac on chornic HFpEF - Echocardiogram of January 13, 2020 showed concentric hypertrophy. LVEF 55-60%. LA mildly dilated. PASP approx 28 mmHg Probable R-sided pneumonia, as indicated on CXR of 02/01/21 and 02/02/21 Troponin level elevated - Probable Type 2 PR secondary to hypoxia - MPI of January 11, 2020 is indicative of anterolateral ischemia. Mild to mod impairment of global LV systolic function. LVEF 40%. Mod cardiomegaly. Cardiac cath advised and scheduled, however she cancelled and did not f/u. H/o hypertension H/o hyperlipidemia H/o amenorrhea since 2015 due to polycystic ovarian H/o impaired fasting glucose Plan: * Repeat echo * Replenish electrolytes * Continue diuretics as needed and as tolerated * Monitor labs * Management of mech vent is with the ICU and Med FRANCO Montes MD FACP [facility] Feb 02, 2021 09:47
--- NOTE | 2021-02-02 10:24 | Tele-ICU Progress Note ---
Subjective Date Seen by a Provider: Feb 02, 2021 Time Seen by a Provider: 10:23 Sepsis Event Evaluation Height, Weight, BMI Height: 5'2.00" Weight: 280lbs. 0.0oz. 127.685575xa; 52.92 BMI Method:Stated Exam Exam Patient acknowledged, consented, and participated in this virtual visit which was conducted using real time audio/video Vital Signs Date Time Temp Pulse Resp B/P (MAP) Pulse Ox O2 Delivery O2 Flow Rate FiO2 02/02/21 10:00 92 124/67 (86) 96 Mechanical Ventilator 25.00 02/02/21 09:00 79 141/81 (101) 97 Mechanical Ventilator 25.00 02/02/21 08:04 36.4 02/02/21 08:00 86 129/76 (93) 97 Mechanical Ventilator 25.00 02/02/21 07:51 90 122/68 02/02/21 07:16 90 32 99 25 02/02/21 07:00 92 35 122/68 (86) 99 Mechanical Ventilator 30.00 02/02/21 07:00 91 02/02/21 06:09 80 142/88 02/02/21 06:00 80 30 115/67 (83) 100 Mechanical Ventilator 30.00 02/02/21 05:00 84 26 129/78 (95) 99 Mechanical Ventilator 30.00 02/02/21 04:00 78 20 126/78 (94) 99 Mechanical Ventilator 30.00 02/02/21 03:00 114 20 136/83 (100) 99 Mechanical Ventilator 30.00 02/02/21 02:28 79 27 100 28 02/02/21 02:24 80 139/86 02/02/21 02:00 81 20 140/89 (106) 100 Mechanical Ventilator 30.00 02/02/21 01:00 86 20 146/94 (111) 100 Mechanical Ventilator 30.00 02/02/21 00:31 79 02/02/21 00:00 37.0 02/02/21 00:00 78 20 139/87 (104) 100 Mechanical Ventilator 30.00 02/01/21 23:30 77 145/88 02/01/21 23:00 77 20 144/91 (108) 99 Mechanical Ventilator 30.00 02/01/21 22:00 74 20 145/94 (111) 99 Mechanical Ventilator 30.00 02/01/21 21:43 74 25 99 28 02/01/21 21:00 74 147/96 (113) 99 Mechanical Ventilator 30.00 02/01/21 20:53 74 145/97 02/01/21 20:32 36.8 02/01/21 20:00 74 148/99 (115) 99 Mechanical Ventilator 30.00 02/01/21 20:00 98 Mechanical Ventilator 30 02/01/21 19:00 75 144/93 (110) 99 Mechanical Ventilator 30.00 02/01/21 18:41 75 27 99 28 02/01/21 18:30 78 02/01/21 18:00 82 130/85 (100) 98 Mechanical Ventilator 30.00 02/01/21 17:00 87 124/79 (94) 97 Mechanical Ventilator 30.00 02/01/21 16:58 36.2 02/01/21 16:00 77 134/94 (107) 98 Mechanical Ventilator 30.00 02/01/21 15:54 97 Mechanical Ventilator 28 02/01/21 15:35 130/88 02/01/21 15:00 78 139/90 (106) 97 Mechanical Ventilator 30.00 02/01/21 14:00 90 39 123/78 (93) 97 Mechanical Ventilator 30.00 02/01/21 13:03 87 33 96 28 02/01/21 13:00 86 43 131/78 (95) 96 Mechanical Ventilator 30.00 02/01/21 12:39 79 02/01/21 12:30 98 Mechanical Ventilator 28 02/01/21 12:00 77 30 149/95 (113) 97 Mechanical Ventilator 30.00 02/01/21 11:39 37.4 02/01/21 11:00 77 25 140/89 (106) 99 Mechanical Ventilator 30.00 I & O 02/02/21 06:59 Intake Total 1830 ml Output Total 3650 ml Balance -1820 ml Height & Weight Height: 5'2.00" Weight: 280lbs. 0.0oz. 127.123518tc; 52.92 BMI Method:Stated General Appearance: No WD/WN; Mild Distress, Obese, Other (Sedated) HEENT: Moist Mucous Membranes Neck: Full Range of Motion, Normal Inspection Respiratory: Chest Non Tender, Decreased Breath Sounds (right), Other Cardiovascular: Regular Rate, Rhythm; No Tachycardia Capillary Refill: Less Than 3 Seconds Gastrointestinal: normal bowel sounds, non tender, soft Extremity: Normal Capillary Refill, Pedal Edema (right leg), Other Neurologic/Psychiatric: No Alert, No Oriented x3, No No Motor/Sensory Deficits, No Normal Mood/Affect Skin: Normal Color, Warm/Dry Results Lab Laboratory Tests 02/01/21 03:25 02/02/21 02:45 Assessment/Plan Assessment/Plan (Tele-ICU Physician , Progress Note ) Available chart/ vitals / labs / Images reviewed Video assessment done using teleICU camera, rest of exam as per RN Discussed with RN Events overnight : LOW GRADE FEVER hemodynamically stable, no pressors, I/O - neg 1 l Drips midazolam , precedex 1.5 prn ativan As per RN exam : lungs clear , Consultants: cards VENT SETTINGS. AC rr 14 TV 450 ( 8 cc/kg) +10 50% ABG reviewed A/P Acute resp failure ( on chronic ) hypoxic, hypercarbic - conbination of CHF. possibla PNA , receiving opioids po and possible TRALI post transfusion , less likely PE ( on AC , and was on AC with neg w/up during recent hosp - intubated 01/29 -01/30 - cxr with elevted right diphragm- stable - keep on peep 10 - cont agressive diuresis - toleartinf well - ADDITIONAL DOSES OF LASIX GIVEN 02/01 AND - ABG WITH MET ACIDOSIS -. ketones negative , off propofol - [facility] assess for SBT today - INTENTIONALLY KEEP PEEP10 - FOR BODY HABITUS AND PULM EDEMA HCAP - vancomycin and cefepime FINISHED COURSE ( recent tx for sepsis - cellulitis (vancomycin, zosyn 01/07 YEAST IN URINE AND SPUTUM - IN FACE OF STEROIDS - added FLUCONAZOLE 02/01 AECOPD - on IV steroids very high dose Suspected MS - on steroids 500 MG BID - FINISHED 5 days course Acute on chronic diastolic heart failure -ECHO 01/08 - 55% , RVSP 20 mm - diuresis type II non-STEMI - lovenox proph dose 01/29 Anemia - - monitor - for now , w/up as per PCP (received 1 U PCBC 01/28 - resumed hep sq proph DMII - as per PCP - no DKA , but significnt hyperglycemia - OFF STEROID NOW - FOLLOW CLOSELY , HOPEFULLY WILL GET BETTER CONTROL Chtonic hypoxia - VQ neg and LE US neg 01/09/21 an risk for HAILE /OHV Hypernatremis with diuresis - increase H20 on ng flushes UDS positive for opioids and amphetamine last admission -on phentermine for weight loss -on hydrocodone for foot and leg pain rib fx. seen on cxr. - no c/o or history Lines : R IJ 01/29 , (Central Line Necessity Reviewed) Hernandez: + OG: + Nutrition: TOLERATES WELL Analgesia: fentanyl prn Anxiety/ delirium VTE Prophylaxis: hold lovenox 01/29 - resume proph 01/30 Stress Ulcer Prophylaxis: PPI Glycemic Control: poor Plans in collaboration with bedside consultants and IM MDs. Discussed with RN to reach out if any questions or concerns A total of 40 minutes of critical care time was devoted to this patient today, required to treat and/or prevent further deterioration of critical care condition ( as above ) . NOÉ CAO MD Feb 02, 2021 10:24
--- NOTE | 2021-02-02 17:46 | Progress Note ---
Subjective Subjective Date Seen by Provider: Feb 02, 2021 Time Seen by Provider: 16:00 Still intubated. at bedside. was not happy today. He informed me we have until Friday to turn her around and come up with a better plan because Friday he will want her extubated because she would not want this. I did have a discuss earlier this week (01/30/21) as to why she was intubated ( I was not present at the time) but it was my understanding since she decompensated so quickly she was intubated with the goal of extubation the following day. was agreeable that this made sense and he was in agreeance. Review of Systems ROS Unable to Obtain: intubated Neurological: Other (sedated and on vent) All Other Systems Reviewed All Other Systems Reviewed: Yes Objective Exam Vital Signs Vital Signs Date Time Temp Pulse Resp B/P (MAP) Pulse Ox O2 Delivery O2 Flow Rate FiO2 02/02/21 17:00 79 25 125/76 (92) 98 Mechanical Ventilator 25.00 02/02/21 16:00 80 130/86 (101) 98 Mechanical Ventilator 25.00 02/02/21 15:52 36.6 02/02/21 15:00 79 131/86 (101) 98 Mechanical Ventilator 25.00 02/02/21 14:50 78 28 98 25 02/02/21 14:00 80 133/85 (101) 98 Mechanical Ventilator 25.00 02/02/21 13:34 81 20 135/87 02/02/21 13:34 82 135/87 02/02/21 13:00 83 02/02/21 13:00 79 142/95 (111) 98 Mechanical Ventilator 25.00 02/02/21 12:58 35.1 02/02/21 12:58 79 41 98 25 02/02/21 12:00 80 144/98 (113) 98 Mechanical Ventilator 25.00 02/02/21 11:00 86 130/73 (92) 94 Mechanical Ventilator 25.00 02/02/21 10:53 87 33 95 25 02/02/21 10:00 92 124/67 (86) 96 Mechanical Ventilator 25.00 02/02/21 09:00 96 Mechanical Ventilator 25 02/02/21 09:00 79 141/81 (101) 97 Mechanical Ventilator 25.00 02/02/21 08:04 36.4 02/02/21 08:00 86 129/76 (93) 97 Mechanical Ventilator 25.00 02/02/21 07:51 90 122/68 02/02/21 07:16 90 32 99 25 02/02/21 07:00 92 35 122/68 (86) 99 Mechanical Ventilator 30.00 02/02/21 07:00 91 02/02/21 06:09 80 142/88 02/02/21 06:00 80 30 115/67 (83) 100 Mechanical Ventilator 30.00 02/02/21 05:00 84 26 129/78 (95) 99 Mechanical Ventilator 30.00 02/02/21 04:00 78 20 126/78 (94) 99 Mechanical Ventilator 30.00 02/02/21 03:00 114 20 136/83 (100) 99 Mechanical Ventilator 30.00 02/02/21 02:28 79 27 100 28 02/02/21 02:24 80 139/86 02/02/21 02:00 81 20 140/89 (106) 100 Mechanical Ventilator 30.00 02/02/21 01:00 86 20 146/94 (111) 100 Mechanical Ventilator 30.00 02/02/21 00:31 79 02/02/21 00:00 37.0 02/02/21 00:00 78 20 139/87 (104) 100 Mechanical Ventilator 30.00 02/01/21 23:30 77 145/88 02/01/21 23:00 77 20 144/91 (108) 99 Mechanical Ventilator 30.00 02/01/21 22:00 74 20 145/94 (111) 99 Mechanical Ventilator 30.00 02/01/21 21:43 74 25 99 28 02/01/21 21:00 74 147/96 (113) 99 Mechanical Ventilator 30.00 02/01/21 20:53 74 145/97 02/01/21 20:32 36.8 02/01/21 20:00 74 148/99 (115) 99 Mechanical Ventilator 30.00 02/01/21 20:00 98 Mechanical Ventilator 30 02/01/21 19:00 75 144/93 (110) 99 Mechanical Ventilator 30.00 02/01/21 18:41 75 27 99 28 02/01/21 18:30 78 02/01/21 18:00 82 130/85 (100) 98 Mechanical Ventilator 30.00 I & O 02/02/21 07:00 Intake Total 1830 ml Output Total 3650 ml Balance -1820 ml General Appearance: No WD/WN; Mild Distress, Obese, Other (Sedated) Eyes: Bilateral Eye Normal Inspection, Bilateral Eye PERRL HEENT: Moist Mucous Membranes Neck: Full Range of Motion, Normal Inspection Respiratory: Chest Non Tender, Decreased Breath Sounds (right), Other Cardiovascular: Regular Rate, Rhythm; No Tachycardia Gastrointestinal: Normal Bowel Sounds Extremity: Normal Capillary Refill, Pedal Edema (right leg), Other Neurologic/Psychiatric: No Alert, No Oriented x3, No No Motor/Sensory Deficits, No Normal Mood/Affect Skin: Normal Color, Warm/Dry Results Lab Laboratory Tests 02/01/21 18:23: Glucometer 357H 02/01/21 23:09: Glucometer 336H 02/02/21 02:45: White Blood Count 9.1, Red Blood Count 3.67L, Hemoglobin 8.6L, Hematocrit 31L, Mean Corpuscular Volume 85, Mean Corpuscular Hemoglobin 23L, Mean Corpuscular Hemoglobin Concent 28L, Red Cell Distribution Width 28.9H, Platelet Count 277, Mean Platelet Volume 10.4, Immature Granulocyte % (Auto) 2, Neutrophils (%) (Auto) 95H, Lymphocytes (%) (Auto) 1L, Monocytes (%) (Auto) 2, Eosinophils (%) (Auto) 0, Basophils (%) (Auto) 0, Neutrophils # (Auto) 8.6H, Lymphocytes # (A uto) 0.1L, Monocytes # (Auto) 0.2, Eosinophils # (Auto) 0.0, Basophils # (Auto) 0.0, Immature Granulocyte # (Auto) 0.2H, Sodium Level 144, Potassium Level 3.3L, Chloride Level 114H, Carbon Dioxide Level 17L, Anion Gap 13, Blood Urea Nitrogen 39H, Creatinine 0.96, Estimat Glomerular Filtration Rate 65, BUN/Creatinine Ratio 41, Glucose Level 338H, Calcium Level 7.3L, Phosphorus Level 4.0, Magnesium Level 2.3 02/02/21 03:30: Blood Gas Puncture Site LEFT RADIAL, Blood Gas Patient Temperature 37.0, Arterial Blood pH 7.39, Arterial Blood Partial Pressure CO2 31L, Arterial Blood Partial Pressure O2 103H, Arterial Blood HCO3 18L, Arterial Blood Total CO2 18.9L, Arterial Blood Oxygen Saturation 98, Arterial Blood Base Excess -6.1L, Denilson Test YES-POS, Blood Gas Ventilator Setting YES, Blood Gas Inspired Oxygen 30% 02/02/21 12:26: Glucometer 361H Microbiology 01/29/21 MRSA Screen - Final, Complete No growth 01/29/21 Urine Culture - Final, Complete YEAST 01/27/21 Blood Culture - Final, Complete No growth Assessment/Plan Assessment/Plan Assessment and Plan 02/01/21 Cr stable. Diuresing appreciate eICU, cardiology hgb stable- infusing Fe. -fluconazole added for yeast in sputum/urine. -finished cefepime 02/01/21 -stopped high dose steroids 02/01/21 (5 days) -sedation vacation- increased resp distress. 02/02/21- blood sugars still high- go up to sliding scale C- gave additional 10 units levemir once. updated that her kidneys were functioning well through this. -current issue is her respiratory status. continue as above Dispo: reassessing tomorrow. If she acutely decompensates- did not give an answer about his wishes. If by friday she is not improved - would like her to be extubated. SBT tomorrow again. Problems: (1) Acute respiratory failure with hypoxia Assessment & Plan: supportive care- RT, oxygen, diuresing- (2) Disability due to neurological disorder Assessment & Plan: still unclear on etiology- rechecking erlichiosis panel at end of week to see if she has IgG. Steroids did not help. - had signs of MS- oligoclonal bands- elevated on LP 2 weeks ago. (3) Acute on chronic diastolic heart failure (4) Essential hypertension (5) Chronic kidney disease Qualifiers: (6) Obesity hypoventilation syndrome (7) Anemia of chronic disease (8) Morbid obesity (9) Type 2 diabetes mellitus with hyperglycemia (10) Positive serology for Erlichiosis Assessment & Plan: on doxycycline CHAZ ADLER MD Feb 02, 2021 17:46
[2021-02-02] MEDS: traZODone 100 MG (DESYREL) TAB PO SCH (19:43)
[2021-02-02] MEDS: ROSUVASTATIN 20 MG (CRESTOR) TABLET PO SCH (20:16)
[2021-02-02] MEDS: fentaNYL INJ 100 MCG/2 ML AMP IVP PRN (20:18)
[2021-02-03] VITALS (31 sets, daily range): BP systolic 112–147; BP diastolic 62–92
[2021-02-03] MEDS: DexMEDEtomidine 250 ML DRIP 250 ML IV SCH ×5 (00:50→23:24)
[2021-02-03] MEDS: RT-ALBUTEROL/IPRATROPIUM 3 ML (DUONEB) VIAL INH SCH ×4 (03:02→21:54)
[2021-02-03] MEDS: MIDAZOLAM DRIP PRE-MIX 100 ML IV SCH ×4 (03:12→23:24)
[2021-02-03 05:33] LABS: BASOPHILS % (AUTO) 0 % (0-10); EOSINOPHILS % (AUTO) 0 % (0-10); HEMATOCRIT 31 % (35-52); HEMOGLOBIN 8.5 g/dL (11.5-16.0); LYMPHOCYTES # (AUTO) 0.4 10^3/uL (1.0-4.0); LYMPHOCYTES % (AUTO) 3 % (12-44); MEAN CORPUSCULAR HEMOGLOBIN 24 pg (25-34); MEAN CORPUSCULAR HGB CONC 28 g/dL (32-36); MEAN CORPUSCULAR VOLUME 86 fL (80-99); MEAN PLATELET VOLUME 10.7 fL (9.0-12.2); MONOCYTES # (AUTO) 0.7 10^3/uL (0.0-1.0); MONOCYTES % (AUTO) 5 % (0-12); NEUTROPHILS # (AUTO) 11.6 10^3/uL (1.8-7.8); NEUTROPHILS % (AUTO) 90 % (42-75); PLATELET COUNT 298 10^3/uL (130-400); WHITE BLOOD COUNT 12.9 10^3/uL (4.3-11.0)
[2021-02-03 05:42] LABS: POTASSIUM 3.2 MMOL/L (3.6-5.0)
[2021-02-03 05:43] LABS: CALCIUM 7.6 MG/DL (8.5-10.1)
[2021-02-03 05:48] LABS: CREATININE SERUM 0.99 MG/DL (0.60-1.30); PHOSPHORUS 3.4 MG/DL (2.3-4.7)
[2021-02-03 05:50] LABS: MAGNESIUM 2.3 MG/DL (1.6-2.4)
[2021-02-03] MEDS: POTASSIUM CL 10MEQ/50ML IVPB 50 ML IV SCH ×3 (05:58→07:17)
[2021-02-03] MEDS: MAGNESIUM 1 GM/100 ML IVPB 100 ML IV SCH (05:58)
[2021-02-03] MEDS: KCL 20 MEQ TAB (K-DUR) PO SCH (05:58)
[2021-02-03] MEDS: FUROSEMIDE 40 MG/4 ML INJ (LASIX) IVP SCH ×2 (06:11→17:51)
[2021-02-03] MEDS: inSUlin ASPART (NovoLOG) 1 UNIT/0.01 ML (CHARGE PER UNIT) SQ SCH ×4 (06:11→23:08)
[2021-02-03] MEDS: DOXYCYCLINE 100 MG (VIBRAMYCIN) TABLET PO SCH ×2 (06:11→17:51)
[2021-02-03 07:30] LABS: ABG BASE EXCESS -6.7 MMOL/L (-2.5-2.5); ABG OXYGEN SATURATION 98 % (94-100); ABG PCO2 31 MMHG (35-45); ABG PH 7.37 (7.37-7.43); ABG PO2 90 MMHG (79-93); ABG TCO2 18.5 MMOL/L (21.0-31.0)
[2021-02-03 07:31] LABS: ALLENS TEST YES-POS; INSPIRED O2 25%; PATIENT TEMP 37; VENTILATOR YES
[2021-02-03] MEDS: FLUCONAZOLE 100 MG/50 ML 50 ML IV SCH (08:09)
[2021-02-03] MEDS: ENOXAPARIN 40 MG/0.4 ML (LOVENOX) SYR SC SCH (08:09)
[2021-02-03] MEDS: amLODIPine 10 MG (NORVASC) TAB PO SCH (08:09)
[2021-02-03] MEDS: ASPIRIN E.C. 81 MG (ECOTRIN) TAB PO SCH (08:09)
[2021-02-03] MEDS: PANTOPRAZOLE 40 MG (PROTONIX) VIAL IV SCH ×2 (08:09→20:11)
[2021-02-03] MEDS: LORazepam INJ 2 MG/ML (ATIVAN) VIAL IVP PRN (08:20)
--- NOTE | 2021-02-03 11:16 | Tele-ICU Progress Note ---
Subjective Date Seen by a Provider: Feb 03, 2021 Time Seen by a Provider: 10:15 Subjective/Events-last exam Patient participated in this virtual visit which was conducted using real time audio/video. Thank you for asking us to see this patient for respiratory insufficiency and distress. HPC: Recent events: Failed SBT earlier this AM. On PS 10 for 5 minutes had paradoxical breathing and appeared uncomfortable on camera. PMH: chf htn dm possible MS. SH: Neg smoking history FH: Non-contributory ROS: limited by patient's clinical condition sedated on vent. PE: Obese. VSS HR 79 nsr BP 139/84 RR 14 O2 sat 99% on vent. HEENT: No obvious masses, adenopathy or JVD. Chest: clear to auscultation. CV: RRR S1 S2 No murmur or added sounds. Abd: Non-tender. Bowel sounds . : Unremarkable. Hernandez . SINKER PULLER/psychiatric: Alert and oriented, grossly intact. No obvious focal findings. Extremities: Capillary refill < 3 seconds. Skin: unremarkable. Results: Elevated BUN 45, Na 145. Decreased K, replaced. A/P: Respiratory insufficiency/distress: Cont vent. Free H2O flushes 250 per shift. Available chart/ vitals / labs / Images reviewed. Video assessment done using teleICU camera, rest of exam as per RN. Respiratory: Continue present management with vent. Monitor for increasing oxygenation needs. Recheck BMP. Critical Care: critically ill patient. Discussed with ANN MARIE Willams. Asked RN to reach out to eICU if any questions or concerns later. Time spent with patient/coordination of care with other health professionals (mins): 15 Sepsis Event Evaluation Sepsis Stage: Ruled Out Height, Weight, BMI Height: 5'2.00" Weight: 280lbs. 0.0oz. 127.576826xs; 52.92 BMI Method:Stated Focused Exam Sepsis Stage: Ruled Out Exam Exam Patient acknowledged, consented, and participated in this virtual visit which was conducted using real time audio/video Vital Signs Date Time Temp Pulse Resp B/P (MAP) Pulse Ox O2 Delivery O2 Flow Rate FiO2 02/03/21 10:48 77 146/89 02/03/21 10:34 75 21 99 25 02/03/21 10:00 75 13 146/89 (108) 99 Mechanical Ventilator 25.00 02/03/21 09:00 78 26 146/90 (108) 99 Mechanical Ventilator 25.00 02/03/21 08:13 86 37 99 25 02/03/21 08:00 97 Mechanical Ventilator 25 02/03/21 08:00 88 131/81 (98) 99 Mechanical Ventilator 25.00 02/03/21 07:57 36.8 02/03/21 07:07 80 24 100 25 02/03/21 07:00 82 02/03/21 07:00 78 121/75 (90) 100 Mechanical Ventilator 25.00 02/03/21 06:11 147/89 02/03/21 06:00 76 147/89 (108) 100 Mechanical Ventilator 25.00 02/03/21 05:00 77 143/87 (105) 100 Mechanical Ventilator 25.00 02/03/21 04:00 78 144/86 (105) 100 Mechanical Ventilator 25.00 02/03/21 04:00 99 Mechanical Ventilator 25 02/03/21 03:12 138/82 02/03/21 03:02 80 28 99 25 02/03/21 03:00 80 142/85 (104) 99 Mechanical Ventilator 25.00 02/03/21 02:00 88 25 143/83 (103) 99 Mechanical Ventilator 25.00 02/03/21 01:00 89 31 119/68 (85) 99 Mechanical Ventilator 25.00 02/03/21 01:00 89 02/03/21 00:50 90 112/69 02/03/21 00:00 79 25 112/69 (83) 99 Mechanical Ventilator 25.00 02/02/21 23:42 99 Mechanical Ventilator 25 02/02/21 23:40 36.2 02/02/21 23:00 80 27 126/77 (93) 99 Mechanical Ventilator 25.00 02/02/21 22:00 86 28 124/73 (90) 98 Mechanical Ventilator 25.00 02/02/21 21:29 89 28 97 25 02/02/21 21:00 86 32 114/66 (82) 99 Mechanical Ventilator 25.00 02/02/21 20:18 82 117/74 02/02/21 20:16 77 26 117/74 02/02/21 20:00 86 29 117/70 (86) 99 Mechanical Ventilator 25.00 02/02/21 20:00 99 Mechanical Ventilator 25 02/02/21 19:38 36.7 02/02/21 19:31 77 26 97 25 02/02/21 19:00 83 02/02/21 19:00 83 36 117/71 (86) 99 Mechanical Ventilator 25.00 02/02/21 18:00 80 27 121/75 (90) 98 Mechanical Ventilator 25.00 02/02/21 17:00 79 25 125/76 (92) 98 Mechanical Ventilator 25.00 02/02/21 16:00 80 130/86 (101) 98 Mechanical Ventilator 25.00 02/02/21 15:52 36.6 02/02/21 15:00 79 131/86 (101) 98 Mechanical Ventilator 25.00 02/02/21 14:50 78 28 98 25 02/02/21 14:00 80 133/85 (101) 98 Mechanical Ventilator 25.00 02/02/21 13:34 81 20 135/87 02/02/21 13:34 82 135/87 02/02/21 13:00 83 02/02/21 13:00 79 142/95 (111) 98 Mechanical Ventilator 25.00 02/02/21 12:58 35.1 02/02/21 12:58 79 41 98 25 02/02/21 12:00 80 144/98 (113) 98 Mechanical Ventilator 25.00 I & O 02/03/21 07:00 Intake Total 1450 ml Output Total 3325 ml Balance -1875 ml Height & Weight Height: 5'2.00" Weight: 280lbs. 0.0oz. 127.959842yg; 52.92 BMI Method:Stated General Appearance: No WD/WN; Mild Distress, Obese, Other (Sedated) HEENT: Moist Mucous Membranes Neck: Full Range of Motion, Normal Inspection Respiratory: Chest Non Tender, Decreased Breath Sounds (right), Other Cardiovascular: Regular Rate, Rhythm; No Tachycardia Capillary Refill: Less Than 3 Seconds Gastrointestinal: normal bowel sounds, non tender, soft Extremity: Normal Capillary Refill, Pedal Edema (right leg), Other Neurologic/Psychiatric: No Alert, No Oriented x3, No No Motor/Sensory Deficits, No Normal Mood/Affect Skin: Normal Color, Warm/Dry Results Lab Laboratory Tests 02/02/21 02:45 02/03/21 05:19 Assessment/Plan Assessment/Plan See free text. Critical Care: Critically Ill Patient Time spent on discussion(mins): 0 FRANCIE MIRANDA MD Feb 03, 2021 11:16
--- NOTE | 2021-02-03 12:30 | Physical Therapy Progress Note ---
Therapy Progress Note Patient is currently intubated and sedated. Will monitor and start when appropriate. KATRINA DUNNE PT Feb 03, 2021 12:30
--- NOTE | 2021-02-03 13:36 | Progress Note - Cardiology ---
Cardiology SOAP Progress Note Subjective: Unsuccessful attempt at extubation this am Currently intubated, sedated and on mech vent Objective: I&O/Vital Signs 02/03/21 02/03/21 02/03/21 02/03/21 02:00 03:00 03:02 03:12 Pulse 88 80 80 Resp 25 28 B/P (MAP) 143/83 (103) 142/85 (104) 138/82 Pulse Ox 99 99 99 O2 Delivery Mechanical Ventilator Mechanical Ventilator O2 Flow Rate 25.00 25.00 FiO2 25 02/03/21 02/03/21 02/03/21 02/03/21 04:00 04:00 05:00 06:00 Pulse 78 77 76 B/P (MAP) 144/86 (105) 143/87 (105) 147/89 (108) Pulse Ox 99 100 100 100 O2 Delivery Mechanical Ventilator Mechanical Ventilator Mechanical Ventilator Mechanical Ventilator O2 Flow Rate 25.00 25.00 25.00 FiO2 25 02/03/21 02/03/21 02/03/21 02/03/21 06:11 07:00 07:00 07:07 Pulse 78 82 80 Resp 24 B/P (MAP) 147/89 121/75 (90) Pulse Ox 100 100 O2 Delivery Mechanical Ventilator O2 Flow Rate 25.00 FiO2 25 02/03/21 02/03/21 02/03/21 02/03/21 07:57 08:00 08:00 08:13 Temp 36.8 Pulse 88 86 Resp 37 B/P (MAP) 131/81 (98) Pulse Ox 99 97 99 O2 Delivery Mechanical Ventilator Mechanical Ventilator O2 Flow Rate 25.00 FiO2 25 25 02/03/21 02/03/21 02/03/21 02/03/21 09:00 10:00 10:34 10:48 Pulse 78 75 75 77 Resp 26 13 21 B/P (MAP) 146/90 (108) 146/89 (108) 146/89 Pulse Ox 99 99 99 O2 Delivery Mechanical Ventilator Mechanical Ventilator O2 Flow Rate 25.00 25.00 FiO2 25 02/03/21 02/03/21 02/03/21 02/03/21 11:00 11:45 12:00 12:43 Temp 37.1 Pulse 78 78 78 Resp 23 23 B/P (MAP) 132/87 (102) 143/90 (107) Pulse Ox 98 99 O2 Delivery Mechanical Ventilator Mechanical Ventilator O2 Flow Rate 25.00 25.00 02/03/21 02/03/21 13:00 13:12 Pulse 77 77 Resp 23 B/P (MAP) 141/88 (105) 141/88 Pulse Ox 99 O2 Delivery Mechanical Ventilator O2 Flow Rate 25.00 02/03/21 00:00 Intake Total 600 ml Output Total 1200 ml Balance -600 ml Weight (Pounds): 280 Weight (Ounces): 0.0 Weight (Calculated Kilograms): 127.138390 Constitutional: other (intubated, sedated, on mech vent) Respiratory: No accessory muscle use; other (fair bilat air entry, diminished at the bases) Cardiovascular: regular rate-rhythm, S1 and S2, systolic murmur (soft MAIRA at card base) Gastrointestional: No tender; soft; No guarding, No rebound; audible bowel sounds Extremities: swelling (mod, non-pitting, bilateral leg edema); No clubbing, No cyanosis Neurologic/Psychiatric: other (intubated, sedated, on mech vent) Skin: warm/dry Results/Procedures: Labs Laboratory Tests 02/02/21 17:46: Glucometer 299H 02/02/21 17:50: Triglycerides Level 559#H 02/02/21 20:15: Glucometer 277H 02/02/21 22:42: Glucometer 278H 02/03/21 05:19: White Blood Count 12.9H, Red Blood Count 3.58L, Hemoglobin 8.5L, Hematocrit 31L, Mean Corpuscular Volume 86, Mean Corpuscular Hemoglobin 24L, Mean Corpuscular Hemoglobin Concent 28L, Red Cell Distribution Width 29.4H, Platelet Count 298, Mean Platelet Volume 10.7, Immature Granulocyte % (Auto) 2, Neutrophils (%) (Auto) 90H, Lymphocytes (%) (Auto) 3L, Monocytes (%) (Auto) 5, Eosinophils (%) (Auto) 0, Basophils (%) (Auto) 0, Neutrophils # (Auto) 11.6H, Lymphocytes # (Auto) 0.4L, Monocytes # (Auto) 0.7, Eosinophils # (Auto) 0.0, Basophils # (Aut o) 0.0, Immature Granulocyte # (Auto) 0.3H, Sodium Level 145, Potassium Level 3.2L, Chloride Level 117H, Carbon Dioxide Level 19L, Anion Gap 9, Blood Urea Nitrogen 45H, Creatinine 0.99, Estimat Glomerular Filtration Rate 63, BUN/Creatinine Ratio 45, Glucose Level 216H, Calcium Level 7.6L, Phosphorus Level 3.4, Magnesium Level 2.3 02/03/21 07:18: Blood Gas Puncture Site RIGHT RAD, Blood Gas Patient Temperature 37, Arterial Blood pH 7.37, Arterial Blood Partial Pressure CO2 31L, Arterial Blood Partial Pressure O2 90, Arterial Blood HCO3 18L, Arterial Blood Total CO2 18.5L, Arterial Blood Oxygen Saturation 98, Arterial Blood Base Excess -6.7L, Denilson Test YES-POS, Blood Gas Ventilator Setting YES, Blood Gas Inspired Oxygen 25% 02/03/21 11:53: Glucometer 160H Microbiology 01/29/21 MRSA Screen - Final, Complete No growth 01/29/21 Urine Culture - Final, Complete YEAST 01/27/21 Blood Culture - Final, Complete No growth A/P: Assessment: Acute, hypoxic respiratory failure, likely multifactorial (see below) Morbid obesity with probable obesity-hypoventilation Ac on chornic HFpEF - Echocardiogram of January 13, 2020 showed concentric hypertrophy. LVEF 55-60%. LA mildly dilated. PASP approx 28 mmHg - Echocardiogram on February 03, 2021: LVEF 60-65%, mild to mod concentric LVH, mild MAC, mild MR, PASP 25-30 mmHg Probable R-sided pneumonia, as indicated on CXR of 02/01/21 and 02/02/21 Troponin level elevated - Probable Type 2 WI secondary to hypoxia - MPI of January 11, 2020 is indicative of anterolateral ischemia. Mild to mod impairment of global LV systolic function. LVEF 40%. Mod cardiomegaly. Cardiac cath advised and scheduled, however she cancelled and did not f/u. H/o hypertension H/o hyperlipidemia H/o amenorrhea since 2015 due to polycystic ovarian H/o impaired fasting glucose Plan: * Continue diuretics as needed and as tolerated * Monitor labs * Management of mech vent is with the ICU and Med FRANCO Montes MD FACP FAC CCDS Feb 03, 2021 13:36
--- NOTE | 2021-02-03 17:05 | Progress Note ---
Subjective Subjective Date Seen by Provider: Feb 03, 2021 Time Seen by Provider: 13:00 Still intubated. Father at bedside. Miryam did open her eyes. and squeezed my hand on command twice. Review of Systems ROS Unable to Obtain: intubated Neurological: Other (sedated and on vent) All Other Systems Reviewed All Other Systems Reviewed: Yes Objective Exam Vital Signs Vital Signs Date Time Temp Pulse Resp B/P (MAP) Pulse Ox O2 Delivery O2 Flow Rate FiO2 02/03/21 16:05 37.1 02/03/21 16:00 75 15 142/90 (107) 100 Mechanical Ventilator 25.00 02/03/21 15:19 76 23 100 25 02/03/21 15:00 77 22 127/82 (97) 99 Mechanical Ventilator 25.00 02/03/21 14:00 77 23 134/86 (102) 99 Mechanical Ventilator 25.00 02/03/21 13:12 77 141/88 02/03/21 13:00 77 23 141/88 (105) 99 Mechanical Ventilator 25.00 02/03/21 12:43 78 02/03/21 12:00 78 23 143/90 (107) 99 Mechanical Ventilator 25.00 02/03/21 12:00 100 Mechanical Ventilator 25 02/03/21 11:45 37.1 02/03/21 11:00 78 23 132/87 (102) 98 Mechanical Ventilator 25.00 02/03/21 10:48 77 146/89 02/03/21 10:34 75 21 99 25 02/03/21 10:00 75 13 146/89 (108) 99 Mechanical Ventilator 25.00 02/03/21 09:00 78 26 146/90 (108) 99 Mechanical Ventilator 25.00 02/03/21 08:13 86 37 99 25 02/03/21 08:00 97 Mechanical Ventilator 25 02/03/21 08:00 88 131/81 (98) 99 Mechanical Ventilator 25.00 02/03/21 07:57 36.8 02/03/21 07:07 80 24 100 25 02/03/21 07:00 82 02/03/21 07:00 78 121/75 (90) 100 Mechanical Ventilator 25.00 02/03/21 06:11 147/89 02/03/21 06:00 76 147/89 (108) 100 Mechanical Ventilator 25.00 02/03/21 05:00 77 143/87 (105) 100 Mechanical Ventilator 25.00 02/03/21 04:00 78 144/86 (105) 100 Mechanical Ventilator 25.00 02/03/21 04:00 99 Mechanical Ventilator 25 02/03/21 03:12 138/82 02/03/21 03:02 80 28 99 25 02/03/21 03:00 80 142/85 (104) 99 Mechanical Ventilator 25.00 02/03/21 02:00 88 25 143/83 (103) 99 Mechanical Ventilator 25.00 02/03/21 01:00 89 31 119/68 (85) 99 Mechanical Ventilator 25.00 02/03/21 01:00 89 02/03/21 00:50 90 112/69 02/03/21 00:00 79 25 112/69 (83) 99 Mechanical Ventilator 25.00 02/02/21 23:42 99 Mechanical Ventilator 25 02/02/21 23:40 36.2 02/02/21 23:00 80 27 126/77 (93) 99 Mechanical Ventilator 25.00 02/02/21 22:00 86 28 124/73 (90) 98 Mechanical Ventilator 25.00 02/02/21 21:29 89 28 97 25 02/02/21 21:00 86 32 114/66 (82) 99 Mechanical Ventilator 25.00 02/02/21 20:18 82 117/74 02/02/21 20:16 77 26 117/74 02/02/21 20:00 86 29 117/70 (86) 99 Mechanical Ventilator 25.00 02/02/21 20:00 99 Mechanical Ventilator 25 02/02/21 19:38 36.7 02/02/21 19:31 77 26 97 25 02/02/21 19:00 83 02/02/21 19:00 83 36 117/71 (86) 99 Mechanical Ventilator 25.00 02/02/21 18:00 80 27 121/75 (90) 98 Mechanical Ventilator 25.00 I & O 02/03/21 07:00 Intake Total 1450 ml Output Total 3325 ml Balance -1875 ml General Appearance: No WD/WN, No Mild Distress; Obese, Other (Sedated) Eyes: Bilateral Eye Normal Inspection, Bilateral Eye PERRL HEENT: Moist Mucous Membranes Neck: Full Range of Motion, Normal Inspection Respiratory: Chest Non Tender, Lungs Clear, Other Cardiovascular: Regular Rate, Rhythm; No Tachycardia Gastrointestinal: Normal Bowel Sounds Extremity: Normal Capillary Refill, Pedal Edema (right leg), Other Neurologic/Psychiatric: No Alert, No Oriented x3, No No Motor/Sensory Deficits, No Normal Mood/Affect Skin: Normal Color, Warm/Dry Results Lab Laboratory Tests 02/02/21 17:46: Glucometer 299H 02/02/21 17:50: Triglycerides Level 559#H 02/02/21 20:15: Glucometer 277H 02/02/21 22:42: Glucometer 278H 02/03/21 05:19: White Blood Count 12.9H, Red Blood Count 3.58L, Hemoglobin 8.5L, Hematocrit 31L, Mean Corpuscular Volume 86, Mean Corpuscular Hemoglobin 24L, Mean Corpuscular Hemoglobin Concent 28L, Red Cell Distribution Width 29.4H, Platelet Count 298, Mean Platelet Volume 10.7, Immature Granulocyte % (Auto) 2, Neutrophils (%) (Auto) 90H, Lymphocytes (%) (Auto) 3L, Monocytes (%) (Auto) 5, Eosinophils (%) (Auto) 0, Basophils (%) (Auto) 0, Neutrophils # (Auto) 11.6H, Lymphocytes # (Auto) 0.4L, Monocytes # (Auto) 0.7, Eosinophils # (Auto) 0.0, Basophils # (Auto) 0.0, Immature Granulocyte # (Auto) 0.3H, Sodium Level 145, Potassium Level 3.2L, Chloride Level 117H, Carbon Dioxide Level 19L, Anion Gap 9, Blood Urea Nitrogen 45H, Creatinine 0.99, Estimat Glomerular Filtration Rate 63, BUN/Creatinine Ratio 45, Glucose Level 216H, Calcium Level 7.6L, Phosphorus Level 3.4, Magnesium Level 2.3 02/03/21 07:18: Blood Gas Puncture Site RIGHT RAD, Blood Gas Patient Temperature 37, Arterial Blood pH 7.37, Arterial Blood Partial Pressure CO2 31L, Arterial Blood Partial Pressure O2 90, Arterial Blood HCO3 18L, Arterial Blood Total CO2 18.5L, Arterial Blood Oxygen Saturation 98, Arterial Blood Base Excess -6.7L, Denilson Test YES-POS, Blood Gas Ventilator Setting YES, Blood Gas Inspired Oxygen 25% 02/03/21 11:53: Glucometer 160H Microbiology 01/29/21 MRSA Screen - Final, Complete No growth 01/29/21 Urine Culture - Final, Complete YEAST 01/27/21 Blood Culture - Final, Complete No growth Assessment/Plan Assessment/Plan Assessment and Plan 02/01/21 Cr stable. Diuresing appreciate eICU, cardiology hgb stable- infusing Fe. -fluconazole added for yeast in sputum/urine. -finished cefepime 02/01/21 -stopped high dose steroids 02/01/21 (5 days) -sedation vacation- increased resp distress. 02/02/21- blood sugars still high- go up to sliding scale C- gave additional 10 units levemir once. updated that her kidneys were functioning well through this. -current issue is her respiratory status. continue as above 02/03/21- replacing potassium. Erhlichiosis pending. blood sugar improved. Updated father of patient at bedside. SBT a little better- SBT trial tomorrow. Dispo: reassessing tomorrow. If she acutely decompensates- did not give an answer about his wishes. If by Friday she is not improved - would like her to be extubated. SBT tomorrow again. Problems: (1) Acute respiratory failure with hypoxia Assessment & Plan: supportive care- RT, oxygen, diuresing- (2) Disability due to neurological disorder Assessment & Plan: still unclear on etiology- rechecking erlichiosis panel at end of week to see if she has IgG. Steroids did not help. - had signs of MS- oligoclonal bands- elevated on LP 2 weeks ago. (3) Acute on chronic diastolic heart failure (4) Essential hypertension (5) Chronic kidney disease Qualifiers: (6) Obesity hypoventilation syndrome (7) Anemia of chronic disease (8) Morbid obesity (9) Type 2 diabetes mellitus with hyperglycemia (10) Positive serology for Erlichiosis Assessment & Plan: on doxycycline CHAZ ADLER MD Feb 03, 2021 17:05
[2021-02-03] MEDS: ROSUVASTATIN 20 MG (CRESTOR) TABLET PO SCH (20:10)
[2021-02-03] MEDS: traZODone 100 MG (DESYREL) TAB PO SCH (20:11)
[2021-02-04] VITALS (31 sets, daily range): BP systolic 83–162; BP diastolic 49–87
[2021-02-04] MEDS: RT-ALBUTEROL/IPRATROPIUM 3 ML (DUONEB) VIAL INH SCH ×4 (02:13→21:43)
[2021-02-04] MEDS: fentaNYL INJ 100 MCG/2 ML AMP IVP PRN ×3 (02:26→20:33)
[2021-02-04 03:55] LABS: ABG BASE EXCESS -4.2 MMOL/L (-2.5-2.5); ABG OXYGEN SATURATION 99 % (94-100); ABG PCO2 36 MMHG (35-45); ABG PH 7.36 (7.37-7.43); ABG PO2 100 MMHG (79-93); ABG TCO2 21.3 MMOL/L (21.0-31.0); BASOPHILS % (AUTO) 0 % (0-10); EOSINOPHILS % (AUTO) 0 % (0-10); HEMATOCRIT 31 % (35-52); HEMOGLOBIN 8.5 g/dL (11.5-16.0); LYMPHOCYTES # (AUTO) 0.4 10^3/uL (1.0-4.0); LYMPHOCYTES % (AUTO) 3 % (12-44); MEAN CORPUSCULAR HEMOGLOBIN 24 pg (25-34); MEAN CORPUSCULAR HGB CONC 28 g/dL (32-36); MEAN CORPUSCULAR VOLUME 87 fL (80-99); MEAN PLATELET VOLUME 10.4 fL (9.0-12.2); MONOCYTES # (AUTO) 0.7 10^3/uL (0.0-1.0); MONOCYTES % (AUTO) 6 % (0-12); NEUTROPHILS # (AUTO) 10.1 10^3/uL (1.8-7.8); NEUTROPHILS % (AUTO) 88 % (42-75); PLATELET COUNT 295 10^3/uL (130-400); WHITE BLOOD COUNT 11.5 10^3/uL (4.3-11.0)
[2021-02-04 03:57] LABS: ALLENS TEST YES-POS; INSPIRED O2 25%; PATIENT TEMP 37.1; VENTILATOR YES
[2021-02-04 04:09] LABS: POTASSIUM 3.8 MMOL/L (3.6-5.0)
[2021-02-04 04:10] LABS: CALCIUM 7.8 MG/DL (8.5-10.1)
[2021-02-04 04:14] LABS: CREATININE SERUM 0.85 MG/DL (0.60-1.30)
[2021-02-04 04:17] LABS: MAGNESIUM 2.3 MG/DL (1.6-2.4)
[2021-02-04] MEDS: DexMEDEtomidine 250 ML DRIP 250 ML IV SCH ×4 (04:30→19:57)
[2021-02-04] MEDS: KCL 20 MEQ TAB (K-DUR) PO SCH (04:36)
[2021-02-04] MEDS: POTASSIUM CL 10MEQ/50ML IVPB 50 ML IV SCH (04:36)
[2021-02-04] MEDS: MAGNESIUM 1 GM/100 ML IVPB 100 ML IV SCH (04:36)
[2021-02-04] MEDS: MIDAZOLAM DRIP PRE-MIX 100 ML IV SCH ×2 (05:27→11:59)
[2021-02-04] MEDS: FUROSEMIDE 40 MG/4 ML INJ (LASIX) IVP SCH ×2 (05:30→16:17)
[2021-02-04] MEDS: inSUlin ASPART (NovoLOG) 1 UNIT/0.01 ML (CHARGE PER UNIT) SQ SCH ×3 (05:30→19:10)
[2021-02-04] MEDS: DOXYCYCLINE 100 MG (VIBRAMYCIN) TABLET PO SCH ×2 (05:31→16:17)
[2021-02-04] MEDS: IRON SUCROSE 200 MG/10 ML (VENOFER) VIAL IV SCH (08:19)
[2021-02-04] MEDS: ASPIRIN E.C. 81 MG (ECOTRIN) TAB PO SCH (08:19)
[2021-02-04] MEDS: PANTOPRAZOLE 40 MG (PROTONIX) VIAL IV SCH ×2 (08:19→19:50)
[2021-02-04] MEDS: ENOXAPARIN 40 MG/0.4 ML (LOVENOX) SYR SC SCH (08:19)
[2021-02-04] MEDS: amLODIPine 10 MG (NORVASC) TAB PO SCH (08:19)
[2021-02-04] MEDS: FLUCONAZOLE 100 MG/50 ML 50 ML IV SCH (08:19)
--- NOTE | 2021-02-04 11:03 | Tele-ICU Progress Note ---
Progress Note video rounds completed 40 y/o female admitted with respiratory failure and intubated Current settings: AC 24/420/25%/8 sedated with propofol and precedex PE: pulse 83 NSR BP: 107/66 O2 sat 93% Laboratory Tests 02/03/21 11:53: Glucometer 160H 02/03/21 17:42: Glucometer 201H 02/03/21 20:04: Glucometer 174H 02/03/21 23:07: Glucometer 174H 02/04/21 03:40: White Blood Count 11.5H, Red Blood Count 3.54L, Hemoglobin 8.5L, Hematocrit 31L, Mean Corpuscular Volume 87, Mean Corpuscular Hemoglobin 24L, Mean Corpuscular Hemoglobin Concent 28L, Red Cell Distribution Width 30.2H, Platelet Count 295, Mean Platelet Volume 10.4, Immature Granulocyte % (Auto) 3, Neutrophils (%) (Auto) 88H, Lymphocytes (%) (Auto) 3L, Monocytes (%) (Auto) 6, Eosinophils (%) (Auto) 0, Basophils (%) (Auto) 0, Neutrophils # (Auto) 10.1H, Lymphocytes # (Auto) 0.4L, Monocytes # (Auto) 0.7, Eosinophils # (Auto) 0.0, Basophils # (Auto) 0.0, Immature Granulocyte # (Auto) 0.3H, Blood Gas Puncture Site RIGHT RADIAL, Blood Gas Patient Temperature 37.1, Arterial Blood pH 7.36L, Arterial Blood Partial Pressure CO2 36, Arterial Blood Partial Pressure O2 100H, Arterial Blood HCO3 20L, Arterial Blood Total CO2 21.3, Arterial Blood Oxygen Saturation 99, Arterial Blood Base Excess -4.2L, Denilson Test YES-POS, Blood Gas Ventilator Setting YES, Blood Gas Inspired Oxygen 25%, Sodium Level 150H, Potassium Level 3.8, Chloride Level 119H, Carbon Dioxide Level 20L, Anion Gap 11, Blood Urea Nitrogen 42H, Creatinine 0.85, Estimat Glomerular Filtration Rate 75, BUN/Creatinine Ratio 49, Glucose Level 184H, Calcium Level 7.8L, Phosphorus Level 3.0, Magnesium Level 2.3 Microbiology 01/29/21 MRSA Screen - Final, Complete No growth 01/29/21 Urine Culture - Final, Complete YEAST 01/27/21 Blood Culture - Final, Complete No growth Laboratory Tests 02/01/21 11:27: Glucometer 329H 02/01/21 18:23: Glucometer 357H 02/01/21 23:09: Glucometer 336H 02/02/21 02:45: Red Blood Count 3.67L, Hemoglobin 8.6L, Hematocrit 31L, Mean Corpuscular Hemoglobin 23L, Mean Corpuscular Hemoglobin Concent 28L, Red Cell Distribution Width 28.9H, Neutrophils (%) (Auto) 95H, Lymphocytes (%) (Auto) 1L, Neutrophils # (Auto) 8.6H, Lymphocytes # (Auto) 0.1L, Immature Granulocyte # (Auto) 0.2H, Potassium Level 3.3L, Chloride Level 114H, Carbon Dioxide Level 17L, Blood Urea Nitrogen 39H, Glucose Level 338H, Calcium Level 7.3L 02/02/21 03:30: Arterial Blood Partial Pressure CO2 31L, Arterial Blood Partial Pressure O2 103H , Arterial Blood HCO3 18L, Arterial Blood Total CO2 18.9L, Arterial Blood Base Excess -6.1L 02/02/21 12:26: Glucometer 361H 02/02/21 17:46: Glucometer 299H 02/02/21 17:50: Triglycerides Level 559#H 02/02/21 20:15: Glucometer 277H 02/02/21 22:42: Glucometer 278H 02/03/21 05:19: White Blood Count 12.9H, Red Blood Count 3.58L, Hemoglobin 8.5L, Hematocrit 31L, Mean Corpuscular Hemoglobin 24L, Mean Corpuscular Hemoglobin Concent 28L, Red Cell Distribution Width 29.4H, Neutrophils (%) (Auto) 90H, Lymphocytes (%) (Auto) 3L, Neutrophils # (Auto) 11.6H, Lymphocytes # (Auto) 0.4L, Immature Granulocyte # (Auto) 0.3H, Potassium Level 3.2L, Chloride Level 117H, Carbon Dioxide Level 19L, Blood Urea Nitrogen 45H, Glucose Level 216H, Calcium Level 7.6L 02/03/21 07:18: Arterial Blood Partial Pressure CO2 31L, Arterial Blood HCO3 18L, Arterial Blood Total CO2 18.5L, Arterial Blood Base Excess -6.7L 02/03/21 11:53: Glucometer 160H 02/03/21 17:42: Glucometer 201H 02/03/21 20:04: Glucometer 174H 02/03/21 23:07: Glucometer 174H 02/04/21 03:40: White Blood Count 11.5H, Red Blood Count 3.54L, Hemoglobin 8.5L, Hematocrit 31L, Mean Corpuscular Hemoglobin 24L, Mean Corpuscular Hemoglobin Concent 28L, Red Cell Distribution Width 30.2H, Neutrophils (%) (Auto) 88H, Lymphocytes (%) (Auto) 3L, Neutrophils # (Auto) 10.1H, Lymphocytes # (Auto) 0.4L, Immature Granulocyte # (Auto) 0.3H, Arterial Blood pH 7.36L, Arterial Blood Partial Pressure O2 100H, Arterial Blood HCO3 20L, Arterial Blood Base Excess -4.2L, Sodium Level 150H, Chloride Level 119H, Carbon Dioxide Level 20L, Blood Urea Nitrogen 42H, Glucose Level 184H, Calcium Level 7.8L ABG this am: 7.36 PLAN: cont vent support Weab as feasable Has DVT and GI px ordered Focused Exam Height, Weight, BMI Height: 5'2.00" Weight: 280lbs. 0.0oz. 127.618629lg; 52.92 BMI Method:Stated RODRIGO WRIGHT MD Feb 04, 2021 11:03
--- NOTE | 2021-02-04 14:21 | Tele-ICU Progress Note ---
Progress Note Patient with obesity and on Versed drip Will stop versed drip and attempt SBT Focused Exam Height, Weight, BMI Height: 5'2.00" Weight: 280lbs. 0.0oz. 127.834547eg; 52.92 BMI Method:Stated RODRIGO WRIGHT MD Feb 04, 2021 14:21
--- NOTE | 2021-02-04 14:46 | Progress Note ---
Subjective Subjective Date Seen by Provider: Feb 04, 2021 Time Seen by Provider: 12:45 Still intubated. at bedside. SBT was not done yet today. did not say what the plan is tomorrow when last he was giving til Monday 02/05- and then extubate. did say he would like to go to the imaging center in [place] for the MRI of her brain because it is much lower cost than MRI in hospital. (If she ever gets out of the hospital) Review of Systems ROS Unable to Obtain: intubated Neurological: Other (sedated and on vent) All Other Systems Reviewed All Other Systems Reviewed: Yes Objective Exam Vital Signs Vital Signs Date Time Temp Pulse Resp B/P (MAP) Pulse Ox O2 Delivery O2 Flow Rate FiO2 02/04/21 13:00 82 02/04/21 13:00 80 25 110/68 (82) 93 Mechanical Ventilator 25.00 02/04/21 12:15 Mechanical Ventilator 25 02/04/21 12:00 81 25 115/70 (85) 94 Mechanical Ventilator 25.00 02/04/21 11:59 81 28 114/72 02/04/21 11:43 37.3 02/04/21 11:00 82 31 115/71 (86) 94 Mechanical Ventilator 25.00 02/04/21 10:10 85 29 100 25 02/04/21 10:00 87 27 116/70 (85) 98 Mechanical Ventilator 25.00 02/04/21 09:47 90 118/73 02/04/21 09:00 87 28 115/71 (86) 97 Mechanical Ventilator 25.00 02/04/21 08:01 37.1 02/04/21 08:00 86 29 114/73 (87) 94 Mechanical Ventilator 25.00 02/04/21 07:48 Mechanical Ventilator 25 02/04/21 07:35 87 25 96 25 02/04/21 07:00 88 29 104/64 (77) 95 Mechanical Ventilator 25.00 02/04/21 07:00 89 02/04/21 06:00 88 26 107/64 (78) 95 Mechanical Ventilator 25.00 02/04/21 05:27 121/76 02/04/21 05:00 78 21 121/76 (91) 96 Mechanical Ventilator 25.00 02/04/21 04:30 114/77 02/04/21 04:00 79 33 124/76 (92) 95 Mechanical Ventilator 25.00 02/04/21 03:55 Mechanical Ventilator 25 02/04/21 03:48 37.1 02/04/21 03:00 86 8 114/72 (86) 94 Mechanical Ventilator 25.00 02/04/21 02:13 80 28 96 25 02/04/21 02:00 76 130/77 (94) 95 Mechanical Ventilator 25.00 02/04/21 01:00 76 21 136/80 (98) 95 Mechanical Ventilator 25.00 02/04/21 01:00 77 02/04/21 00:00 77 23 132/81 (98) 95 Mechanical Ventilator 25.00 02/03/21 23:40 Mechanical Ventilator 25 02/03/21 23:24 129/77 02/03/21 23:24 78 129/77 02/03/21 23:08 37.5 02/03/21 23:00 81 22 131/79 (96) 96 Mechanical Ventilator 25.00 02/03/21 22:00 74 22 112/62 (79) 96 Mechanical Ventilator 25.00 02/03/21 21:54 74 21 96 25 02/03/21 21:00 74 21 142/85 (104) 100 Mechanical Ventilator 25.00 02/03/21 20:31 100 Mechanical Ventilator 25 02/03/21 20:03 36.8 75 24 137/84 (101) 100 Mechanical Ventilator 25.00 02/03/21 20:00 75 21 140/85 (103) 100 Mechanical Ventilator 25.00 02/03/21 19:00 74 21 137/82 (100) 100 Mechanical Ventilator 25.00 02/03/21 19:00 74 02/03/21 18:47 74 22 100 25 02/03/21 18:12 74 138/85 02/03/21 18:00 75 24 138/85 (102) 100 Mechanical Ventilator 25.00 02/03/21 17:08 75 21 145/89 02/03/21 17:00 75 22 143/88 (106) 100 Mechanical Ventilator 25.00 02/03/21 16:05 37.1 02/03/21 16:00 100 Mechanical Ventilator 25 02/03/21 16:00 75 15 142/90 (107) 100 Mechanical Ventilator 25.00 02/03/21 15:19 76 23 100 25 02/03/21 15:00 77 22 127/82 (97) 99 Mechanical Ventilator 25.00 I & O 02/04/21 07:00 Intake Total 1950 ml Output Total 3220 ml Balance -1270 ml General Appearance: No WD/WN, No Mild Distress; Obese, Other (Sedated) Eyes: Bilateral Eye Normal Inspection, Bilateral Eye PERRL HEENT: Moist Mucous Membranes Neck: Full Range of Motion, Normal Inspection Respiratory: Chest Non Tender, Lungs Clear, Other (intubated) Cardiovascular: Regular Rate, Rhythm; No Tachycardia Gastrointestinal: Normal Bowel Sounds Extremity: Normal Capillary Refill, Pedal Edema (right leg), Other Neurologic/Psychiatric: No Alert, No Oriented x3, No No Motor/Sensory Deficits, No Normal Mood/Affect Skin: Normal Color, Warm/Dry Results Lab Laboratory Tests 02/03/21 17:42: Glucometer 201H 02/03/21 20:04: Glucometer 174H 02/03/21 23:07: Glucometer 174H 02/04/21 03:40: White Blood Count 11.5H, Red Blood Count 3.54L, Hemoglobin 8.5L, Hematocrit 31L, Mean Corpuscular Volume 87, Mean Corpuscular Hemoglobin 24L, Mean Corpuscular Hemoglobin Concent 28L, Red Cell Distribution Width 30.2H, Platelet Count 295, Mean Platelet Volume 10.4, Immature Granulocyte % (Auto) 3, Neutrophils (%) (Auto) 88H, Lymphocytes (%) (Auto) 3L, Monocytes (%) (Auto) 6, Eosinophils (%) (Auto) 0, Basophils (%) (Auto) 0, Neutrophils # (Auto) 10.1H, Lymphocytes # (Auto) 0.4L, Monocytes # (Auto) 0.7, Eosinophils # (Auto) 0.0, Basophils # (Auto) 0.0, Immature Granulocyte # (Auto) 0.3H, Blood Gas Puncture Site RIGHT RADIAL, Blood Gas Patient Temperature 37.1, Arterial Blood pH 7.36L, Arterial Blood Partial Pressure CO2 36, Arterial Blood Partial Pressure O2 100H, Arterial Blood HCO3 20L, Arterial Blood Total CO2 21.3, Arterial Blood Oxygen Saturation 99, Arterial Blood Base Excess -4.2L, Denilson Test YES-POS, Blood Gas Ventilator Setting YES, Blood Gas Inspired Oxygen 25%, Sodium Level 150H, Potassium Level 3.8, Chloride Level 119H, Carbon Dioxide Level 20L, Anion Gap 11, Blood Urea Nitrogen 42H, Creatinine 0.85, Estimat Glomerular Filtration Rate 75, BUN/Creatinine Ratio 49, Glucose Level 184H, Calcium Level 7.8L, Phosphorus Level 3.0, Magnesium Level 2.3 02/04/21 11:30: Glucometer 203H Microbiology 01/29/21 MRSA Screen - Final, Complete No growth 01/29/21 Urine Culture - Final, Complete YEAST 01/27/21 Blood Culture - Final, Complete No growth Assessment/Plan Assessment/Plan Assessment and Plan 02/01/21 Cr stable. Diuresing appreciate eICU, cardiology hgb stable- infusing Fe. -fluconazole added for yeast in sputum/urine. -finished cefepime 02/01/21 -stopped high dose steroids 02/01/21 (5 days) -sedation vacation- increased resp distress. 02/02/21- blood sugars still high- go up to sliding scale C- gave additional 10 units levemir once. updated that her kidneys were functioning well through this. -current issue is her respiratory status. continue as above 02/03/21- replacing potassium. Erhlichiosis pending. blood sugar improved. Updated father of patient at bedside. SBT a little better- SBT trial tomorrow. 02/04/21- continue with free water with OG tube. recheck Na level. Will see how SBT goes- possible extubation tomorrow depending on what decides- reasoning is Miryam would not want to be intubated. Dispo: Prognosis- guarded/poor Problems: (1) Acute respiratory failure with hypoxia Assessment & Plan: supportive care- RT, oxygen, diuresing- (2) Disability due to neurological disorder Assessment & Plan: still unclear on etiology- rechecking erlichiosis panel at end of week to see if she has IgG. Steroids did not help. - had signs of MS- oligoclonal bands- elevated on LP 2 weeks ago. (3) Acute on chronic diastolic heart failure (4) Essential hypertension (5) Chronic kidney disease Qualifiers: (6) Obesity hypoventilation syndrome (7) Anemia of chronic disease (8) Morbid obesity (9) Type 2 diabetes mellitus with hyperglycemia (10) Positive serology for Erlichiosis Assessment & Plan: on doxycycline CHAZ ADLER MD Feb 04, 2021 14:46
--- NOTE | 2021-02-04 15:36 | Tele-ICU Progress Note ---
Progress Note prolonged recovery from versed drip after several hours still not following commands well but becoming restless SBT attempted by respiratory therapist, but patient became tachypneic into the 50s with low TV. Will place back on full vent support Use precedex for sedation and some ativan pushes PRN (apparently became hypertriglyceridemic on propofol) Focused Exam Height, Weight, BMI Height: 5'2.00" Weight: 280lbs. 0.0oz. 127.104805kh; 52.92 BMI Method:Stated RODRIGO WRIGHT MD Feb 04, 2021 15:36
--- NOTE | 2021-02-04 16:27 | Progress Note - Cardiology ---
Cardiology SOAP Progress Note [facility], by her bedside Objective: I&O/Vital Signs 02/04/21 02/04/21 02/04/21 02/04/21 04:30 05:00 05:27 06:00 Pulse 78 88 Resp B/P (MAP) 114/77 121/76 (91) 121/76 107/64 (78) Pulse Ox 96 95 O2 Delivery Mechanical Ventilator Mechanical Ventilator O2 Flow Rate 25.00 25.00 02/04/21 02/04/21 02/04/21 02/04/21 07:00 07:00 07:35 07:48 Pulse 89 88 87 Resp B/P (MAP) 104/64 (77) Pulse Ox 95 96 O2 Delivery Mechanical Ventilator Mechanical Ventilator O2 Flow Rate 25.00 FiO2 25 25 02/04/21 02/04/21 02/04/21 02/04/21 08:00 08:01 09:00 09:47 Temp 37.1 Pulse 86 87 90 Resp B/P (MAP) 114/73 (87) 115/71 (86) 118/73 Pulse Ox 94 97 O2 Delivery Mechanical Ventilator Mechanical Ventilator O2 Flow Rate 25.00 25.00 02/04/21 02/04/21 02/04/21 02/04/21 10:00 10:10 11:00 11:43 Temp 37.3 Pulse 87 85 82 Resp 29 31 B/P (MAP) 116/70 (85) 115/71 (86) Pulse Ox 98 100 94 O2 Delivery Mechanical Ventilator Mechanical Ventilator O2 Flow Rate 25.00 25.00 FiO2 25 02/04/21 02/04/21 02/04/21 02/04/21 11:59 12:00 12:15 13:00 Pulse 81 81 80 Resp 25 25 B/P (MAP) 114/72 115/70 (85) 110/68 (82) Pulse Ox 94 93 O2 Delivery Mechanical Ventilator Mechanical Ventilator Mechanical Ventilator O2 Flow Rate 25.00 25.00 FiO2 25 02/04/21 02/04/21 02/04/21 02/04/21 13:00 14:00 15:00 15:08 Pulse 82 82 85 86 Resp 23 B/P (MAP) 106/68 (81) 109/64 (79) 109/64 Pulse Ox 94 98 O2 Delivery Mechanical Ventilator Mechanical Ventilator O2 Flow Rate 25.00 25.00 02/04/21 02/04/21 15:15 16:00 Pulse 85 85 Resp 29 24 B/P (MAP) 114/67 (83) Pulse Ox 100 95 O2 Delivery Mechanical Ventilator O2 Flow Rate 25.00 FiO2 25 02/04/21 00:00 Intake Total 1200 ml Output Total 2550 ml Balance -1350 ml Weight (Pounds): 280 Weight (Ounces): 0.0 Weight (Calculated Kilograms): 127.489307 Constitutional: other (intubated, sedated, on mech vent) Respiratory: No accessory muscle use; other (fair bilat air entry, diminished at the bases) Cardiovascular: regular rate-rhythm, S1 and S2, systolic murmur (soft MAIRA at card base) Gastrointestional: No tender; soft; No guarding, No rebound; audible bowel sounds Extremities: swelling (mod, non-pitting, bilateral leg edema); No clubbing, No cyanosis Neurologic/Psychiatric: other (intubated, sedated, on mech vent) Skin: warm/dry Results/Procedures: Labs Laboratory Tests 02/03/21 17:42: Glucometer 201H 02/03/21 20:04: Glucometer 174H 02/03/21 23:07: Glucometer 174H 02/04/21 03:40: White Blood Count 11.5H, Red Blood Count 3.54L, Hemoglobin 8.5L, Hematocrit 31L, Mean Corpuscular Volume 87, Mean Corpuscular Hemoglobin 24L, Mean Corpuscular Hemoglobin Concent 28L, Red Cell Distribution Width 30.2H, Platelet Count 295, Mean Platelet Volume 10.4, Immature Granulocyte % (Auto) 3, Neutrophils (%) (Auto) 88H, Lymphocytes (%) (Auto) 3L, Monocytes (%) (Auto) 6, Eosinophils (%) (Auto) 0, Basophils (%) (Auto) 0, Neutrophils # (Auto) 10.1H, Lymphocytes # (Auto) 0.4L, Monocytes # (Auto) 0.7, Eosinophils # (Auto) 0.0, Basophils # (Auto) 0.0, Immature Granulocyte # (Auto) 0.3H, Blood Gas Puncture Site RIGHT RADIAL, Blood Gas Patient Temperature 37.1, Arterial Blood pH 7.36L, Arterial Blood Partial Pressure CO2 36, Arterial Blood Partial Pressure O2 100H, Arterial Blood HCO3 20L, Arterial Blood Total CO2 21.3, Arterial Blood Oxygen Saturation 99, Arterial Blood Base Excess -4.2L, Denilson Test YES-POS, Blood Gas Ventilator Setting YES, Blood Gas Inspired Oxygen 25%, Sodium Level 150H, Potassium Level 3.8, Chloride Level 119H, Carbon Dioxide Level 20L, Anion Gap 11, Blood Urea Nitrogen 42H, Creatinine 0.85, Estimat Glomerular Filtration Rate 75, BUN/Creatinine Ratio 49, Glucose Level 184H, Calcium Level 7.8L, Phosphorus Level 3.0, Magnesium Level 2.3 02/04/21 11:30: Glucometer 203H Microbiology 01/29/21 MRSA Screen - Final, Complete No growth 01/29/21 Urine Culture - Final, Complete YEAST 01/27/21 Blood Culture - Final, Complete No growth Laboratory Tests 02/03/21 05:19 02/04/21 03:40 A/P: Assessment: Acute, hypoxic respiratory failure, likely multifactorial (see below) Morbid obesity with probable obesity-hypoventilation Ac on chornic HFpEF - Echocardiogram of January 13, 2020 showed concentric hypertrophy. LVEF 55-60%. LA mildly dilated. PASP approx 28 mmHg - Echocardiogram on February 03, 2021: LVEF 60-65%, mild to mod concentric LVH, mild MAC, mild MR, PASP 25-30 mmHg Probable R-sided pneumonia, as indicated on CXR of 02/01/21 and 02/02/21 Troponin level elevated - Probable Type 2 [place] secondary to hypoxia - MPI of January 11, 2020 is indicative of anterolateral ischemia. Mild to mod impairment of global LV systolic function. LVEF 40%. Mod cardiomegaly. Cardiac cath advised and scheduled, however she cancelled and did not f/u. H/o hypertension H/o hyperlipidemia H/o amenorrhea since 2015 due to polycystic ovarian H/o impaired fasting glucose Plan: * Continue diuretics as needed and as tolerated * Monitor labs * Management of mech vent is with the ICU and Med Svces * I discussed her CV issues with her FRANCO BROTHERS MD FACP FAC CCDS Feb 04, 2021 16:27
[2021-02-04] MEDS: APAP 325 MG/10.15 ML LIQ (TYLENOL) UDC NG PRN (16:40)
[2021-02-04 19:26] LABS: BILIRUBIN,URINE NEGATIVE (NEGATIVE); CLARITY,URINE CLEAR; COLOR,URINE YELLOW; GLUCOSE, URINE (UA) NEGATIVE (NEGATIVE); KETONES,URINE NEGATIVE (NEGATIVE); LEUKOCYTE ESTERASE ,URINE 3+ (NEGATIVE); NITRITE,URINE NEGATIVE (NEGATIVE); PH,URINE 5.5 (5-9); PROTEIN,URINE TRACE (NEGATIVE)
[2021-02-04 19:42] LABS: AMORPHOUS SEDIMENT,UR MOD AMOR URATES /LPF; BACTERIA,URINE LARGE /HPF; WBC,URINE 25-50 /HPF; YEAST,URINE LARGE /HPF
[2021-02-04] MEDS: traZODone 100 MG (DESYREL) TAB PO SCH (19:51)
[2021-02-04] MEDS: ROSUVASTATIN 20 MG (CRESTOR) TABLET PO SCH (19:51)
[2021-02-04] MEDS ORDERED: fentaNYL DRIP PRE-MIX 250 ML IV ONE (21:20)
[2021-02-04] MEDS: fentaNYL DRIP PRE-MIX 250 ML IV SCH (22:14)
[2021-02-05] VITALS (34 sets, daily range): BP systolic 82–130; BP diastolic 46–84
[2021-02-05] MEDS: inSUlin ASPART (NovoLOG) 1 UNIT/0.01 ML (CHARGE PER UNIT) SQ SCH ×4 (00:30→17:49)
[2021-02-05] MEDS: DexMEDEtomidine 250 ML DRIP 250 ML IV SCH ×5 (01:02→23:13)
[2021-02-05] MEDS: RT-ALBUTEROL/IPRATROPIUM 3 ML (DUONEB) VIAL INH SCH ×4 (02:04→21:43)
[2021-02-05 05:06] LABS: ABG BASE EXCESS -4.7 MMOL/L (-2.5-2.5); ABG OXYGEN SATURATION 97 % (94-100); ABG PCO2 33 MMHG (35-45); ABG PH 7.39 (7.37-7.43); ABG PO2 87 MMHG (79-93); ALLENS TEST YES-POS; BASOPHILS % (AUTO) 0 % (0-10); EOSINOPHILS % (AUTO) 0 % (0-10); HEMATOCRIT 28 % (35-52); HEMOGLOBIN 7.7 g/dL (11.5-16.0); INSPIRED O2 30%; LYMPHOCYTES # (AUTO) 0.6 10^3/uL (1.0-4.0); LYMPHOCYTES % (AUTO) 5 % (12-44); MEAN CORPUSCULAR HEMOGLOBIN 25 pg (25-34); MEAN CORPUSCULAR HGB CONC 28 g/dL (32-36); MEAN CORPUSCULAR VOLUME 89 fL (80-99); MEAN PLATELET VOLUME 11.5 fL (9.0-12.2); MONOCYTES # (AUTO) 0.7 10^3/uL (0.0-1.0); MONOCYTES % (AUTO) 6 % (0-12); NEUTROPHILS # (AUTO) 9.9 10^3/uL (1.8-7.8); NEUTROPHILS % (AUTO) 84 % (42-75); PATIENT TEMP 38.4; PLATELET COUNT 276 10^3/uL (130-400); VENTILATOR YES; WHITE BLOOD COUNT 11.8 10^3/uL (4.3-11.0)
[2021-02-05] MEDS: APAP 325 MG/10.15 ML LIQ (TYLENOL) UDC NG PRN ×3 (05:09→23:59)
[2021-02-05 05:15] LABS: POTASSIUM 3.9 MMOL/L (3.6-5.0)
[2021-02-05 05:17] LABS: CALCIUM 7.5 MG/DL (8.5-10.1)
[2021-02-05 05:21] LABS: CREATININE SERUM 1.07 MG/DL (0.60-1.30); PHOSPHORUS 3.1 MG/DL (2.3-4.7)
[2021-02-05 05:23] LABS: ANISOCYTOSIS MODERATE; BAND NEUTROPHILS 4 %; HYPOCHROMASIA MODERATE; LYMPHOCYTES % (MANUAL) 3 %; MAGNESIUM 2.3 MG/DL (1.6-2.4); MONOCYTES % (MANUAL) 8 %; NEUTROPHILS % (MANUAL) 85 %
[2021-02-05] MEDS ORDERED: NS 500 ML IV BAG IV ONE (05:30)
[2021-02-05] MEDS: POTASSIUM CL 10MEQ/50ML IVPB 50 ML IV SCH (05:37)
[2021-02-05] MEDS: KCL 20 MEQ TAB (K-DUR) PO SCH (05:37)
[2021-02-05] MEDS: MAGNESIUM 1 GM/100 ML IVPB 100 ML IV SCH (05:37)
[2021-02-05] MEDS: DOXYCYCLINE 100 MG (VIBRAMYCIN) TABLET PO SCH ×2 (06:43→16:05)
[2021-02-05] MEDS: FUROSEMIDE 40 MG/4 ML INJ (LASIX) IVP SCH ×2 (06:43→16:05)
--- NOTE | 2021-02-05 06:54 | Occ Therapy Progress Note ---
Therapy Progress Note Pt is currently intubated. OT will continue to monitor pt and initiate therapy when pt is more medically stable and able to actively participate in skilled therapy. KENJI DELANEY Feb 05, 2021 06:54
--- NOTE | 2021-02-05 08:05 | Physical Therapy Progress Note ---
Therapy Progress Note Patient is currently intubated and sedated. Will monitor and start when appropriate. NIRMAL BELTRE PT Feb 05, 2021 08:05
--- NOTE | 2021-02-05 08:44 | Progress Note - Cardiology ---
Cardiology SOAP Progress Note Subjective: Intubated and sedated Failed weaning trial this morning Objective: I&O/Vital Signs 02/05/21 02/05/21 02/05/21 02/05/21 21:00 21:43 22:00 23:00 Pulse 78 77 80 82 Resp B/P (MAP) 102/64 (77) 101/60 (74) 101/63 (76) Pulse Ox 97 98 98 98 O2 Delivery Mechanical Ventilator Mechanical Ventilator Mechanical Ventilator O2 Flow Rate 30.00 30.00 30.00 FiO2 30 02/05/21 02/05/21 02/06/21 02/06/21 23:13 23:57 00:00 00:00 Temp 37.8 Pulse 82 82 Resp 27 B/P (MAP) 101/63 100/65 (77) Pulse Ox 98 O2 Delivery Mechanical Ventilator Mechanical Ventilator O2 Flow Rate 30.00 FiO2 30 02/06/21 02/06/21 02/06/21 02/06/21 01:00 01:00 02:00 02:07 Pulse 80 80 79 79 Resp B/P (MAP) 95/65 (75) 92/63 (73) Pulse Ox 99 98 98 O2 Delivery Mechanical Ventilator Mechanical Ventilator O2 Flow Rate 30.00 30.00 FiO2 30 02/06/21 02/06/21 02/06/21 02/06/21 03:00 04:00 04:00 04:23 Pulse 84 79 Resp 24 B/P (MAP) 97/62 (74) 94/61 (72) 95/59 Pulse Ox 98 95 O2 Delivery Mechanical Ventilator Mechanical Ventilator Mechanical Ventilator O2 Flow Rate 30.00 30.00 FiO2 30 02/06/21 02/06/21 02/06/21 02/06/21 05:00 06:00 07:30 08:00 Pulse 78 78 Resp B/P (MAP) 92/63 (73) 93/57 (69) Pulse Ox 97 98 94 O2 Delivery Mechanical Ventilator Mechanical Ventilator Mechanical Ventilator Mechanical Ventilator O2 Flow Rate 30.00 30.00 25.00 FiO2 30 02/06/21 08:12 Temp 36.0 02/06/21 00:00 Intake Total 1080 ml Output Total 475 ml Balance 605 ml Weight (Pounds): 280 Weight (Ounces): 0.0 Weight (Calculated Kilograms): 127.813968 Constitutional: other (intubated, sedated, on mech vent) Respiratory: No accessory muscle use; other (fair bilat air entry, diminished at the bases) Cardiovascular: regular rate-rhythm, S1 and S2, systolic murmur (soft MAIRA at card base) Gastrointestional: No tender; soft; No guarding, No rebound; audible bowel sounds Extremities: swelling (mod, non-pitting, bilateral leg edema); No clubbing, No cyanosis Neurologic/Psychiatric: other (intubated, sedated, on mech vent) Skin: warm/dry Results/Procedures: Labs Laboratory Tests 02/05/21 12:10: Glucometer 241H 02/05/21 17:19: Glucometer 221H 02/05/21 19:32: Glucometer 211H 02/05/21 23:56: Glucometer 175H 02/06/21 03:15: White Blood Count 8.9, Red Blood Count 2.81L, Hemoglobin 7.0L, Hematocrit 25L, Mean Corpuscular Volume 90, Mean Corpuscular Hemoglobin 25, Mean Corpuscular Hemoglobin Concent 27L, Red Cell Distribution Width 30.4H, Platelet Count 281, Mean Platelet Volume 11.4, Immature Granulocyte % (Auto) 2, Neutrophils (%) (Auto) 87H, Lymphocytes (%) (Auto) 6L, Monocytes (%) (Auto) 6, Eosinophils (%) (Auto) 0, Basophils (%) (Auto) 0, Neutrophils # (Auto) 7.7, Lymphocytes # (Auto) 0.5L, Monocytes # (Auto) 0.5, Eosinophils # (Auto) 0.0, Basophils # (Auto) 0.0, Immature Granulocyte # (Auto) 0.2H, Blood Gas Puncture Site RIGHT RADIAL, Blood Gas Patient Temperature 38.0, Arterial Blood pH 7.42, Arterial Blood Partial Pressure CO2 27L, Arterial Blood Partial Pressure O2 155H, Arterial Blood HCO3 18L, Arterial Blood Total CO2 17.6L, Arterial Blood Oxygen Saturation 98, Arterial Blood Base Excess -6.6L, Denilson Test YES-POS, Blood Gas Ventilator Setting YES, Blood Gas Inspired Oxygen 30%, Sodium Level 148H, Potassium Level 4.0, Chloride Level 119H, Carbon Dioxide Level 17L, Anion Gap 12, Blood Urea Nitrogen 53H, Creatinine 1.41H, Estimat Glomerular Filtration Rate 42, BUN/Creatinine Ratio 38, Glucose Level 218H, Calcium Level 7.4L, Phosphorus Level 3.6, Magnesium Level 2.1, Triglycerides Level 219H Microbiology 02/05/21 Gram Stain - Final, Resulted 02/05/21 Sputum Culture - Preliminary, Resulted Gram Negative Nilo 02/04/21 Urine Culture - Final, Complete YEAST 02/04/21 Blood Culture - Preliminary, Resulted No growth A/P: Assessment: Acute, hypoxic respiratory failure, likely multifactorial (see below) Morbid obesity with probable obesity-hypoventilation Ac on chornic HFpEF - Echocardiogram of January 13, 2020 showed concentric hypertrophy. LVEF 55-60%. LA mildly dilated. PASP approx 28 mmHg - Echocardiogram on February 03, 2021: LVEF 60-65%, mild to mod concentric LVH, mild MAC, mild MR, PASP 25-30 mmHg Probable R-sided pneumonia, as indicated on CXR of 02/01/21 and 02/02/21 Troponin level elevated - Probable Type 2 [place] secondary to hypoxia - MPI of January 11, 2020 is indicative of anterolateral ischemia. Mild to mod impairment of global LV systolic function. LVEF 40%. Mod cardiomegaly. Cardiac cath advised and scheduled, however she cancelled and did not f/u. H/o hypertension H/o hyperlipidemia H/o amenorrhea since 2015 due to polycystic ovarian H/o impaired fasting glucose Anemia of undetermined etiology Plan: * Continue diuretics as needed and as tolerated * Monitor labs * Anemia of undetermined etiology - management per Med and ICU services * Management of mech vent is with the ICU and Med Svces * I discussed her CV issues with her NATE OVALLE Marquis JARQUIN Feb 05, 2021 08:44
[2021-02-05] MEDS: FENTANYL PATCH REMOVAL TP SCH (08:47)
[2021-02-05] MEDS: FLUCONAZOLE 100 MG/50 ML 50 ML IV SCH (08:47)
[2021-02-05] MEDS: PANTOPRAZOLE 40 MG (PROTONIX) VIAL IV SCH ×2 (08:47→19:34)
[2021-02-05] MEDS: ENOXAPARIN 40 MG/0.4 ML (LOVENOX) SYR SC SCH (08:48)
[2021-02-05] MEDS: ASPIRIN E.C. 81 MG (ECOTRIN) TAB PO SCH (08:48)
[2021-02-05] MEDS: fentaNYL PATCH 25 MCG (DURAGESIC) TD SCH (08:48)
[2021-02-05] MEDS: amLODIPine 10 MG (NORVASC) TAB PO SCH (08:48)
--- NOTE | 2021-02-05 10:25 | Tele-ICU Progress Note ---
Subjective Date Seen by a Provider: Feb 05, 2021 Time Seen by a Provider: 10:25 Sepsis Event Evaluation Height, Weight, BMI Height: 5'2.00" Weight: 280lbs. 0.0oz. 127.445310nn; 52.92 BMI Method:Stated Focused Exam Lactate Level 02/04/21 16:50: Lactic Acid Level 1.81 Exam Exam Patient acknowledged, consented, and participated in this virtual visit which was conducted using real time audio/video Vital Signs Date Time Temp Pulse Resp B/P (MAP) Pulse Ox O2 Delivery O2 Flow Rate FiO2 02/05/21 08:30 37.4 84 94 30 02/05/21 07:30 37.4 02/05/21 07:10 84 39 94 30 02/05/21 07:00 87 02/05/21 06:44 108/63 02/05/21 06:00 91 29 103/57 (72) 94 Mechanical Ventilator 30.00 02/05/21 05:43 37.1 02/05/21 05:16 38.5 02/05/21 05:00 80 26 106/64 (78) 96 Mechanical Ventilator 30.00 02/05/21 04:00 Mechanical Ventilator 30 02/05/21 04:00 81 29 105/66 (79) 96 Mechanical Ventilator 30.00 02/05/21 03:00 87 30 91/53 (66) 95 Mechanical Ventilator 30.00 02/05/21 02:30 92 29 93/52 (66) 94 Mechanical Ventilator 30.00 02/05/21 02:04 82 24 99 25 02/05/21 02:00 80 24 87/51 (63) 93 Mechanical Ventilator 30.00 02/05/21 01:02 89/46 02/05/21 01:00 79 89/46 (60) 92 Mechanical Ventilator 30.00 02/05/21 01:00 79 02/05/21 00:34 Mechanical Ventilator 30.00 02/05/21 00:17 Mechanical Ventilator 50.00 02/05/21 00:00 77 29 94/53 (67) 100 Mechanical Ventilator 70.00 02/04/21 23:59 Mechanical Ventilator 70 02/04/21 23:58 37.0 Mechanical Ventilator 70.00 02/04/21 23:47 Mechanical Ventilator 90.00 02/04/21 23:45 78 26 92/52 (65) 87 Mechanical Ventilator 55.00 02/04/21 23:21 Mechanical Ventilator 55.00 02/04/21 23:12 Mechanical Ventilator 40.00 02/04/21 23:00 80 18 83/49 (60) 88 Mechanical Ventilator 30.00 02/04/21 22:00 81 24 90/58 (69) 93 Mechanical Ventilator 30.00 02/04/21 21:43 82 24 93 25 02/04/21 21:00 85 31 96/61 (73) 94 Mechanical Ventilator 30.00 02/04/21 20:40 84 25 Mechanical Ventilator 30.00 02/04/21 20:00 82 27 115/71 (86) 94 Mechanical Ventilator 25.00 02/04/21 20:00 Mechanical Ventilator 25 02/04/21 19:57 82 114/69 02/04/21 19:39 37.4 02/04/21 19:26 85 29 162/85 (110) 94 Mechanical Ventilator 25.00 02/04/21 19:00 86 02/04/21 18:54 84 33 98 25 02/04/21 18:00 96 32 149/83 (105) 94 Mechanical Ventilator 25.00 02/04/21 17:32 37.5 02/04/21 17:00 85 28 128/82 (97) 94 Mechanical Ventilator 25.00 02/04/21 16:40 38.2 02/04/21 16:15 Mechanical Ventilator 25 02/04/21 16:00 38.0 02/04/21 16:00 85 24 114/67 (83) 95 Mechanical Ventilator 25.00 02/04/21 15:15 85 29 100 25 02/04/21 15:08 86 109/64 02/04/21 15:00 85 23 109/64 (79) 98 Mechanical Ventilator 25.00 02/04/21 14:00 82 27 106/68 (81) 94 Mechanical Ventilator 25.00 02/04/21 13:00 82 02/04/21 13:00 80 25 110/68 (82) 93 Mechanical Ventilator 25.00 02/04/21 12:15 Mechanical Ventilator 25 02/04/21 12:00 81 25 115/70 (85) 94 Mechanical Ventilator 25.00 02/04/21 11:59 81 28 114/72 02/04/21 11:43 37.3 02/04/21 11:00 82 31 115/71 (86) 94 Mechanical Ventilator 25.00 I & O 02/05/21 07:00 Intake Total 1260 ml Output Total 1175 ml Balance 85 ml Height & Weight Height: 5'2.00" Weight: 280lbs. 0.0oz. 127.575144zx; 52.92 BMI Method:Stated General Appearance: No WD/WN, No Mild Distress; Obese, Other (Sedated) HEENT: Moist Mucous Membranes Neck: Full Range of Motion, Normal Inspection Respiratory: Chest Non Tender, Lungs Clear, Other (intubated) Cardiovascular: Regular Rate, Rhythm; No Tachycardia Capillary Refill: Less Than 3 Seconds Gastrointestinal: normal bowel sounds, non tender, soft Extremity: Normal Capillary Refill, Pedal Edema (right leg), Other Neurologic/Psychiatric: No Alert, No Oriented x3, No No Motor/Sensory Deficits, No Normal Mood/Affect Skin: Normal Color, Warm/Dry Results Lab Laboratory Tests 02/04/21 03:40 02/05/21 04:55 Assessment/Plan Assessment/Plan (Tele-ICU Physician , Progress Note ) Available chart/ vitals / labs / Images reviewed Video assessment done using teleICU camera, rest of exam as per RN Discussed with RN Events overnight : LOW GRADE FEVER hemodynamically stable, no pressors, I/O - even Drips midazolam , precedex 1.5 prn fentanyl 20 ativan prn not used As per RN exam : lungs clear , Consultants: cards VENT SETTINGS. AC rr 24 TV 450 ( 8 cc/kg) +8 30 % ABG reviewed ROS -1 SBT 02/04 - 10 mins - ? RR A/P Acute resp failure ( on chronic ) hypoxic, hypercarbic - conbination of CHF. possibla PNA , receiving opioids po and possible TRALI post transfusion , less likely PE ( on AC , and was on AC with neg w/up during recent hosp - intubated 01/29 -01/30 - cxr with elevted right diphragm- stable - cont diuresis - will do SBT everyday - will discussed today with PCP plans - she might benefit from trach as terapeutic approach HCAP - vancomycin and cefepime FINISHED COURSE ( recent tx for sepsis - cellulitis (vancomycin, zosyn 01/07 YEAST IN URINE AND SPUTUM - IN FACE OF STEROIDS - added FLUCONAZOLE 02/01 AECOPD - on IV steroids very high dose Suspected MS - on steroids 500 MG BID - FINISHED 5 days course Acute on chronic diastolic heart failure -ECHO 01/08 - 55% , RVSP 20 mm - diuresis type II non-STEMI - lovenox proph dose 01/29 Anemia - - monitor - for now , w/up as per PCP (received 1 U PCBC 01/28 - resumed hep sq proph - Hb trending down , no bleeding , on Fe supplements DMII - as per PCP - no DKA , but significnt hyperglycemia - OFF STEROID NOW - FOLLOW CLOSELY , HOPEFULLY WILL GET BETTER CONTROL Chtonic hypoxia - VQ neg and LE US neg 01/09/21 an risk for HAILE /OHV Hypernatremis with diuresis - increase H20 on ng flushes UDS positive for opioids and amphetamine last admission -on phentermine for weight loss -on hydrocodone for foot and leg pain rib fx. seen on cxr. - no c/o or history Lines : R IJ 01/29 , (Central Line Necessity Reviewed) Hernandez: + OG: + Nutrition: TOLERATES WELL Analgesia: fentanyl prn Anxiety/ delirium VTE Prophylaxis: hold lovenox 01/29 - resume proph 01/30 Stress Ulcer Prophylaxis: PPI Glycemic Control: poor Plans in collaboration with bedside consultants and IM MDs. Discussed with RN to reach out if any questions or concerns A total of 40 minutes of critical care time was devoted to this patient today, required to treat and/or prevent further deterioration of critical care condition ( as above ) . NOÉ CAO MD Feb 05, 2021 10:25
--- NOTE | 2021-02-05 10:50 | Diagnostic Imaging Report ---
CLINICAL INDICATION: Evaluate ET tube placement. Patient with respiratory failure. EXAM: Portable chest x-ray, semiupright view. COMPARISON: Chest x-ray dated 02/02/2021. FINDINGS: The patient is rotated on the exam, more so than on the prior study. There are mild patchy airspace opacities involving both lower lung faulkner, concerning for atelectasis versus infiltrate. There is no pleural effusion or pneumothorax. The ET tube is seen in stable good position. The right IJ central line is in stable good position. The feeding tube is incompletely imaged but is below level of the diaphragm. The remainder of this exam shows no significant interval change compared to the prior study of comparison. IMPRESSION: 1: There is progression of bibasilar atelectasis versus infiltrates. 2: Stable lines and tubes, as described above. Dictated by: Dictated on workstation # [id number]
[2021-02-05] MEDS: RT-ALBUTEROL/IPRATROPIUM 3 ML (DUONEB) VIAL INH PRN (12:09)
--- NOTE | 2021-02-05 12:55 | Progress Note ---
Subjective Subjective Date Seen by Provider: Feb 05, 2021 Time Seen by Provider: 12:54 Still intubated. Doing better with SBT. Slowly improving. sputum sent for culture -opened her eyes and squeezed my hand. She did not squeeze my hand when I asked her to if she was in pain. Review of Systems ROS Unable to Obtain: intubated Neurological: Other (sedated and on vent) All Other Systems Reviewed All Other Systems Reviewed: Yes Objective Exam Vital Signs Vital Signs Date Time Temp Pulse Resp B/P (MAP) Pulse Ox O2 Delivery O2 Flow Rate FiO2 02/05/21 12:10 83 36 92 30 02/05/21 12:00 36.3 02/05/21 11:55 93 115/69 02/05/21 10:00 93 35 115/69 (84) 96 Mechanical Ventilator 30.00 02/05/21 09:00 82 28 107/68 (81) 96 Mechanical Ventilator 30.00 02/05/21 08:30 37.4 84 94 30 02/05/21 08:00 84 117/71 (86) 97 Mechanical Ventilator 30.00 02/05/21 07:30 37.4 02/05/21 07:10 84 39 94 30 02/05/21 07:00 87 33 112/64 (80) 94 Mechanical Ventilator 30.00 02/05/21 07:00 87 02/05/21 06:44 108/63 02/05/21 06:00 91 29 103/57 (72) 94 Mechanical Ventilator 30.00 02/05/21 05:43 37.1 02/05/21 05:16 38.5 02/05/21 05:00 80 26 106/64 (78) 96 Mechanical Ventilator 30.00 02/05/21 04:00 Mechanical Ventilator 30 02/05/21 04:00 81 29 105/66 (79) 96 Mechanical Ventilator 30.00 02/05/21 03:00 87 30 91/53 (66) 95 Mechanical Ventilator 30.00 02/05/21 02:30 92 29 93/52 (66) 94 Mechanical Ventilator 30.00 02/05/21 02:04 82 24 99 25 02/05/21 02:00 80 24 87/51 (63) 93 Mechanical Ventilator 30.00 02/05/21 01:02 89/46 02/05/21 01:00 79 89/46 (60) 92 Mechanical Ventilator 30.00 02/05/21 01:00 79 02/05/21 00:34 Mechanical Ventilator 30.00 02/05/21 00:17 Mechanical Ventilator 50.00 02/05/21 00:00 77 29 94/53 (67) 100 Mechanical Ventilator 70.00 02/04/21 23:59 Mechanical Ventilator 70 02/04/21 23:58 37.0 Mechanical Ventilator 70.00 02/04/21 23:47 Mechanical Ventilator 90.00 02/04/21 23:45 78 26 92/52 (65) 87 Mechanical Ventilator 55.00 02/04/21 23:21 Mechanical Ventilator 55.00 02/04/21 23:12 Mechanical Ventilator 40.00 02/04/21 23:00 80 18 83/49 (60) 88 Mechanical Ventilator 30.00 02/04/21 22:00 81 24 90/58 (69) 93 Mechanical Ventilator 30.00 02/04/21 21:43 82 24 93 25 02/04/21 21:00 85 31 96/61 (73) 94 Mechanical Ventilator 30.00 02/04/21 20:40 84 25 Mechanical Ventilator 30.00 02/04/21 20:00 82 27 115/71 (86) 94 Mechanical Ventilator 25.00 02/04/21 20:00 Mechanical Ventilator 25 02/04/21 19:57 82 114/69 02/04/21 19:39 37.4 02/04/21 19:26 85 29 162/85 (110) 94 Mechanical Ventilator 25.00 02/04/21 19:00 86 02/04/21 18:54 84 33 98 25 02/04/21 18:00 96 32 149/83 (105) 94 Mechanical Ventilator 25.00 02/04/21 17:32 37.5 02/04/21 17:00 85 28 128/82 (97) 94 Mechanical Ventilator 25.00 02/04/21 16:40 38.2 02/04/21 16:15 Mechanical Ventilator 25 02/04/21 16:00 38.0 02/04/21 16:00 85 24 114/67 (83) 95 Mechanical Ventilator 25.00 02/04/21 15:15 85 29 100 25 02/04/21 15:08 86 109/64 02/04/21 15:00 85 23 109/64 (79) 98 Mechanical Ventilator 25.00 02/04/21 14:00 82 27 106/68 (81) 94 Mechanical Ventilator 25.00 02/04/21 13:00 82 02/04/21 13:00 80 25 110/68 (82) 93 Mechanical Ventilator 25.00 I & O 02/05/21 07:00 Intake Total 1260 ml Output Total 1175 ml Balance 85 ml General Appearance: No WD/WN, No Mild Distress; Obese, Other (Sedated) Eyes: Bilateral Eye Normal Inspection, Bilateral Eye PERRL HEENT: Moist Mucous Membranes Neck: Full Range of Motion, Normal Inspection Respiratory: Chest Non Tender, Lungs Clear, Other (intubated) Cardiovascular: Regular Rate, Rhythm; No Tachycardia Gastrointestinal: Normal Bowel Sounds Extremity: Normal Capillary Refill, Pedal Edema (right leg), Other Neurologic/Psychiatric: No Alert, No Oriented x3, No No Motor/Sensory Deficits, No Normal Mood/Affect Skin: Normal Color, Warm/Dry Results Lab Laboratory Tests 02/04/21 16:50: Lactic Acid Level 1.81 02/04/21 17:00: Urine Color YELLOW, Urine Clarity CLEAR, Urine pH 5.5, Urine Specific [place] 1.010L, Urine Protein TRACEH, Urine Glucose (UA) NEGATIVE, Urine Ketones NEGATIVE, Urine Nitrite NEGATIVE, Urine Bilirubin NEGATIVE, Urine Urobilinogen 0.2, Urine Leukocyte Esterase 3+H, Urine RBC (Auto) 3+H, Urine RBC NONE, Urine WBC 25-50H, Urine Squamous Epithelial Cells NONE, Urine Renal Epithelial Cells NONE, Urine Crystals PRESENTH, Urine Amorphous Sediment MOD FELICIA URATESH, Urine Bacteria LARGEH, Urine Casts NONE, Urine Mucus NEGATIVE, Urine Yeast LARGEH, Urine Culture Indicated CULTURE PENDING 02/04/21 17:27: Glucometer 187H 02/05/21 00:30: Glucometer 61L 02/05/21 01:54: Glucometer 86 02/05/21 04:55: White Blood Count 11.8H, Red Blood Count 3.08L, Hemoglobin 7.7L, Hematocrit 28L, Mean Corpuscular Volume 89, Mean Corpuscular Hemoglobin 25, Mean Corpuscular Hemoglobin Concent 28L, Red Cell Distribution Width 30.5H, Platelet Count 276, Mean Platelet Volume 11.5, Immature Granulocyte % (Auto) 5, Neutrophils (%) (Auto) 84H, Lymphocytes (%) (Auto) 5L, Monocytes (%) (Auto) 6, Eosinophils (%) (Auto) 0, Basophils (%) (Auto) 0, Neutrophils # (Auto) 9.9H, Lymphocytes # (Auto) 0.6L, Monocytes # (Auto) 0.7, Eosinophils # (Auto) 0.0, Basophils # (Auto) 0.0, Immature Granulocyte # (Auto) 0.5H, Neutrophils % (Manual) 85, Lymphocytes % (Manual) 3, Monocytes % (Manual) 8, Band Neutrophils 4, Hypochromasia MODERATE, Anisocytosis MODERATE, Blood Gas Puncture Site RIGHT RADIAL, Blood Gas Patient Temperature 38.4, Arterial Blood pH 7.39, Arterial Blood Partial Pressure CO2 33L, Arterial Blood Partial Pressure O2 87, Arterial Blood HCO3 19L, Arterial Blood Total CO2 20.0L, Arterial Blood Oxygen Saturation 97, Arterial Blood Base Excess -4.7L, Denilson Test YES-POS, Blood Gas Ventilator Setting YES, Blood Gas Inspired Oxygen 30%, Sodium Level 151H, Potassium Level 3.9, Chloride Level 121H, Carbon Dioxide Level 18L, Anion Gap 12, Blood Urea Nitrogen 49H, Creatinine 1.07, Estimat Glomerular Filtration Rate 57, BUN/Creati nine Ratio 46, Glucose Level 163H, Calcium Level 7.5L, Phosphorus Level 3.1, Magnesium Level 2.3 02/05/21 12:10: Glucometer 241H Microbiology 02/04/21 Urine Culture - Preliminary, Resulted YEAST 01/29/21 MRSA Screen - Final, Complete No growth 01/27/21 Blood Culture - Final, Complete No growth Assessment/Plan Assessment/Plan Assessment and Plan 02/01/21 Cr stable. Diuresing appreciate eICU, cardiology hgb stable- infusing Fe. -fluconazole added for yeast in sputum/urine. -finished cefepime 02/01/21 -stopped high dose steroids 02/01/21 (5 days) -sedation vacation- increased resp distress. 02/02/21- blood sugars still high- go up to sliding scale C- gave additional 10 units levemir once. updated that her kidneys were functioning well through this. -current issue is her respiratory status. continue as above 02/03/21- replacing potassium. Erhlichiosis pending. blood sugar improved. Updated father of patient at bedside. SBT a little better- SBT trial tomorrow. 02/04/21- continue with free water with OG tube. recheck Na level. Will see how SBT goes- possible extubation tomorrow depending on what decides- reasoning is Miryam would not want to be intubated. 02/05/21- spoke with eICU - spoke with patient's - they still do not want a trach. Awaking cultures from sputum. Continue with SBTs trials. Will keep discussing her care- ultimately though will go with 's decisions which do line up with what patient has said on last admission. Though her mental state does play a role- of being tired of dealing with her health problems. She would not like to be dependent on a trach or ventilator. Dispo: Prognosis- guarded/poor Problems: (1) Acute respiratory failure with hypoxia Assessment & Plan: supportive care- RT, oxygen, diuresing- (2) Disability due to neurological disorder Assessment & Plan: still unclear on etiology- rechecking erlichiosis panel. Steroids did not help. - had signs of MS- oligoclonal bands- elevated on LP from last admission. Would be good to have an MRI of her head/neck. (3) Acute on chronic diastolic heart failure (4) Essential hypertension (5) Chronic kidney disease Qualifiers: (6) Obesity hypoventilation syndrome (7) Anemia of chronic disease (8) Morbid obesity (9) Type 2 diabetes mellitus with hyperglycemia (10) Positive serology for Erlichiosis Assessment & Plan: on doxycycline CHAZ ADLER MD Feb 05, 2021 12:55
--- NOTE | 2021-02-05 15:25 | Progress Note - Cardiology ---
Cardiology SOAP Progress Note Subjective: Intubated, on mech vent, non-communicative Objective: I&O/Vital Signs 02/05/21 02/05/21 02/05/21 02/05/21 04:00 04:00 05:00 05:16 Temp 38.5 Pulse 81 80 Resp 29 26 B/P (MAP) 105/66 (79) 106/64 (78) Pulse Ox 96 96 O2 Delivery Mechanical Ventilator Mechanical Ventilator Mechanical Ventilator O2 Flow Rate 30.00 30.00 FiO2 30 02/05/21 02/05/21 02/05/21 02/05/21 05:43 06:00 06:44 07:00 Temp 37.1 Pulse 91 87 Resp 29 B/P (MAP) 103/57 (72) 108/63 Pulse Ox 94 O2 Delivery Mechanical Ventilator O2 Flow Rate 30.00 02/05/21 02/05/21 02/05/21 02/05/21 07:00 07:10 07:30 08:00 Temp 37.4 Pulse 87 84 84 Resp 33 39 B/P (MAP) 112/64 (80) 117/71 (86) Pulse Ox 94 94 97 O2 Delivery Mechanical Ventilator Mechanical Ventilator O2 Flow Rate 30.00 30.00 FiO2 30 02/05/21 02/05/21 02/05/21 02/05/21 08:30 09:00 10:00 11:55 Temp 37.4 Pulse 84 82 93 93 Resp 28 35 B/P (MAP) 107/68 (81) 115/69 (84) 115/69 Pulse Ox 94 96 96 O2 Delivery Mechanical Ventilator Mechanical Ventilator O2 Flow Rate 30.00 30.00 FiO2 30 02/05/21 02/05/21 02/05/21 02/05/21 12:00 12:10 13:00 13:26 Temp 36.3 37.4 Pulse 83 86 Resp 36 Pulse Ox 92 FiO2 30 02/05/21 02/05/21 02/05/21 02/05/21 13:57 14:01 14:23 14:46 Temp 38.0 Pulse 91 88 82 Resp 57 43 33 Pulse Ox 90 91 91 FiO2 50 30 30 02/05/21 00:00 Intake Total 580 ml Output Total 625 ml Balance -45 ml Weight (Pounds): 280 Weight (Ounces): 0.0 Weight (Calculated Kilograms): 127.092813 Constitutional: other (intubated, sedated, on mech vent) Respiratory: No accessory muscle use; other (fair bilat air entry, diminished at the bases) Cardiovascular: regular rate-rhythm, S1 and S2, systolic murmur (soft MAIRA at card base) Gastrointestional: No tender; soft; No guarding, No rebound; audible bowel sounds Extremities: swelling (mod, non-pitting, bilateral leg edema); No clubbing, No cyanosis Neurologic/Psychiatric: other (intubated, sedated, on mech vent) Skin: warm/dry Results/Procedures: Labs Laboratory Tests 02/04/21 16:50: Lactic Acid Level 1.81 02/04/21 17:00: Urine Color YELLOW, Urine Clarity CLEAR, Urine pH 5.5, Urine Specific [place] 1.010L, Urine Protein TRACEH, Urine Glucose (UA) NEGATIVE, Urine Ketones NEGATIVE, Urine Nitrite NEGATIVE, Urine Bilirubin NEGATIVE, Urine Urobilinogen 0.2, Urine Leukocyte Esterase 3+H, Urine RBC (Auto) 3+H, Urine RBC NONE, Urine WBC 25-50H, Urine Squamous Epithelial Cells NONE, Urine Renal Epithelial Cells NONE, Urine Crystals PRESENTH, Urine Amorphous Sediment MOD FELICIA URATESH, Urine Bacteria LARGEH, Urine Casts NONE, Urine Mucus NEGATIVE, Urine Yeast LARGEH, Urine Culture Indicated CULTURE PENDING 02/04/21 17:27: Glucometer 187H 02/05/21 00:30: Glucometer 61L 02/05/21 01:54: Glucometer 86 02/05/21 04:55: White Blood Count 11.8H, Red Blood Count 3.08L, Hemoglobin 7.7L, Hematocrit 28L, Mean Corpuscular Volume 89, Mean Corpuscular Hemoglobin 25, Mean Corpuscular Hemoglobin Concent 28L, Red Cell Distribution Width 30.5H, Platelet Count 276, Mean Platelet Volume 11.5, Immature Granulocyte % (Auto) 5, Neutrophils (%) (Auto) 84H, Lymphocytes (%) (Auto) 5L, Monocytes (%) (Auto) 6, Eosinophils (%) (Auto) 0, Basophils (%) (Auto) 0, Neutrophils # (Auto) 9.9H, Lymphocytes # (Auto) 0.6L, Monocytes # (Auto) 0.7, Eosinophils # (Auto) 0.0, Basophils # (Auto) 0.0, Immature Granulocyte # (Auto) 0.5H, Neutrophils % (Manual) 85, Lymphocytes % (Manual) 3, Monocytes % (Manual) 8, Band Neutrophils 4, Hypoch romasia MODERATE, Anisocytosis MODERATE, Blood Gas Puncture Site RIGHT RADIAL, Blood Gas Patient Temperature 38.4, Arterial Blood pH 7.39, Arterial Blood Partial Pressure CO2 33L, Arterial Blood Partial Pressure O2 87, Arterial Blood HCO3 19L, Arterial Blood Total CO2 20.0L, Arterial Blood Oxygen Saturation 97, Arterial Blood Base Excess -4.7L, Denilson Test YES-POS, Blood Gas Ventilator Setting YES, Blood Gas Inspired Oxygen 30%, Sodium Level 151H, Potassium Level 3.9, Chloride Level 121H, Carbon Dioxide Level 18L, Anion Gap 12, Blood Urea Nitrogen 49H, Creatinine 1.07, Estimat Glomerular Filtration Rate 57, BUN/Creatinine Ratio 46, Glucose Level 163H, Calcium Level 7.5L, Phosphorus Level 3.1, Magnesium Level 2.3 02/05/21 12:10: Glucometer 241H Microbiology 02/04/21 Urine Culture - Preliminary, Resulted YEAST 01/29/21 MRSA Screen - Final, Complete No growth 01/27/21 Blood Culture - Final, Complete No growth Laboratory Tests 02/04/21 03:40 02/05/21 04:55 A/P: Assessment: Acute, hypoxic respiratory failure, likely multifactorial (see below) Obesity with probable obesity-hypoventilation Ac on chornic HFpEF - Echocardiogram of January 13, 2020 showed concentric hypertrophy. LVEF 55-60%. LA mildly dilated. PASP approx 28 mmHg - Echocardiogram on February 03, 2021: LVEF 60-65%, mild to mod concentric LVH, mild MAC, mild MR, PASP 25-30 mmHg Probable R-sided pneumonia, as indicated on CXR of 02/01/21 and 02/02/21 Troponin level elevated - Probable Type 2 [place] secondary to hypoxia - MPI of January 11, 2020 is indicative of anterolateral ischemia. Mild to mod impairment of global LV systolic function. LVEF 40%. Mod cardiomegaly. Cardiac cath advised and scheduled, however she cancelled and did not f/u. H/o hypertension H/o hyperlipidemia H/o amenorrhea since 2015 due to polycystic ovarian H/o impaired fasting glucose Anemia of undetermined etiology Plan: * Continue diuretics as needed and as tolerated * Monitor labs * Anemia of undetermined etiology - management per Med and ICU services * Management of mech vent is with the ICU and Med Svces * I discussed her CV issues with her father who was by her bedside today FRANCO BROTHERS MD FACP FACC CCDS Feb 05, 2021 15:25
[2021-02-05] MEDS: traZODone 100 MG (DESYREL) TAB PO SCH (19:12)
[2021-02-05] MEDS: ROSUVASTATIN 20 MG (CRESTOR) TABLET PO SCH (19:34)
[2021-02-05] MEDS: fentaNYL DRIP PRE-MIX 250 ML IV SCH (21:01)
[2021-02-06] VITALS (30 sets, daily range): BP systolic 87–110; BP diastolic 50–69
[2021-02-06] MEDS: inSUlin ASPART (NovoLOG) 1 UNIT/0.01 ML (CHARGE PER UNIT) SQ SCH ×4 (00:36→18:17)
[2021-02-06] MEDS: RT-ALBUTEROL/IPRATROPIUM 3 ML (DUONEB) VIAL INH SCH ×4 (02:06→21:23)
[2021-02-06] MEDS ORDERED: 1/2 NS IV SOLUTION 1,000 ML IV ONE (02:30)
[2021-02-06 03:26] LABS: BASOPHILS % (AUTO) 0 % (0-10); EOSINOPHILS % (AUTO) 0 % (0-10); HEMATOCRIT 25 % (35-52); LYMPHOCYTES # (AUTO) 0.5 10^3/uL (1.0-4.0); LYMPHOCYTES % (AUTO) 6 % (12-44); MEAN CORPUSCULAR HEMOGLOBIN 25 pg (25-34); MEAN CORPUSCULAR HGB CONC 27 g/dL (32-36); MEAN CORPUSCULAR VOLUME 90 fL (80-99); MEAN PLATELET VOLUME 11.4 fL (9.0-12.2); MONOCYTES # (AUTO) 0.5 10^3/uL (0.0-1.0); MONOCYTES % (AUTO) 6 % (0-12); NEUTROPHILS # (AUTO) 7.7 10^3/uL (1.8-7.8); NEUTROPHILS % (AUTO) 87 % (42-75); PLATELET COUNT 281 10^3/uL (130-400); WHITE BLOOD COUNT 8.9 10^3/uL (4.3-11.0)
[2021-02-06 03:27] LABS: ABG BASE EXCESS -6.6 MMOL/L (-2.5-2.5); ABG PCO2 27 MMHG (35-45); ABG PH 7.42 (7.37-7.43); ABG PO2 155 MMHG (79-93); ABG TCO2 17.6 MMOL/L (21.0-31.0)
[2021-02-06 03:29] LABS: ABG OXYGEN SATURATION 98 % (94-100); ALLENS TEST YES-POS; INSPIRED O2 30%; VENTILATOR YES
[2021-02-06 03:39] LABS: CALCIUM 7.4 MG/DL (8.5-10.1)
[2021-02-06 03:43] LABS: CREATININE SERUM 1.41 MG/DL (0.60-1.30); PHOSPHORUS 3.6 MG/DL (2.3-4.7)
[2021-02-06 03:46] LABS: MAGNESIUM 2.1 MG/DL (1.6-2.4)
[2021-02-06] MEDS: DexMEDEtomidine 250 ML DRIP 250 ML IV SCH ×3 (04:23→14:55)
[2021-02-06] MEDS: fentaNYL DRIP PRE-MIX 250 ML IV SCH ×2 (05:03→13:11)
[2021-02-06] MEDS: POTASSIUM CL 10MEQ/50ML IVPB 50 ML IV SCH (05:19)
[2021-02-06] MEDS: MAGNESIUM 1 GM/100 ML IVPB 100 ML IV SCH (05:20)
[2021-02-06] MEDS: KCL 20 MEQ TAB (K-DUR) PO SCH (05:20)
[2021-02-06] MEDS: FUROSEMIDE 40 MG/4 ML INJ (LASIX) IVP SCH (05:25)
[2021-02-06] MEDS: DOXYCYCLINE 100 MG (VIBRAMYCIN) TABLET PO SCH ×2 (06:20→18:17)
--- NOTE | 2021-02-06 07:00 | Occ Therapy Progress Note ---
Therapy Progress Note Pt is currently intubated. OT will continue to monitor pt and initiate therapy when pt is more medically stable and able to actively participate in skilled therapy. KENJI DELANEY Feb 06, 2021 07:00
--- NOTE | 2021-02-06 08:23 | Physical Therapy Progress Note ---
Therapy Progress Note Patient is currently intubated and sedated. Will monitor and start when appropriate. DIPIKA ZHANG PT Feb 06, 2021 08:22
--- NOTE | 2021-02-06 08:34 | Progress Note - Cardiology ---
Cardiology SOAP Progress Note Subjective: Intubated and sedated Objective: I&O/Vital Signs 02/07/21 02/07/21 02/07/21 02/07/21 21:00 21:04 21:53 22:00 Temp 36.8 Pulse 90 90 94 93 Resp 26 27 29 B/P (MAP) 115/71 (86) 112/69 116/70 105/62 (76) Pulse Ox 97 98 97 O2 Delivery Mechanical Ventilator Mechanical Ventilator Mechanical Ventilator O2 Flow Rate 30.00 30.00 FiO2 30 02/07/21 02/07/21 02/08/21 02/08/21 22:14 23:00 00:00 00:00 Pulse 101 104 89 Resp 42 28 B/P (MAP) 116/70 (85) 116/74 (88) Pulse Ox 94 96 97 O2 Delivery Mechanical Ventilator Mechanical Ventilator Mechanical Ventilator O2 Flow Rate 30.00 30.00 FiO2 30 30 02/08/21 02/08/21 02/08/21 02/08/21 00:31 00:32 00:47 01:00 Temp 36.5 36.0 36.6 Pulse 88 87 86 Resp 33 25 B/P (MAP) 113/74 114/75 116/72 (87) Pulse Ox 97 96 92 O2 Delivery Mechanical Ventilator Mechanical Ventilator Mechanical Ventilator O2 Flow Rate 30.00 FiO2 30 30 02/08/21 02/08/21 02/08/21 02/08/21 01:00 01:48 02:00 02:24 Temp 36.5 Pulse 86 85 85 86 Resp 27 23 24 B/P (MAP) 111/73 (86) 111/73 Pulse Ox 100 100 100 O2 Delivery Mechanical Ventilator Mechanical Ventilator O2 Flow Rate 30.00 FiO2 30 30 02/08/21 02/08/21 02/08/21 02/08/21 03:00 03:27 04:00 04:00 Pulse 86 88 87 Resp 23 25 B/P (MAP) 115/73 (87) 115/73 112/72 (85) Pulse Ox 99 98 O2 Delivery Mechanical Ventilator Mechanical Ventilator Mechanical Ventilator O2 Flow Rate 30.00 30.00 FiO2 30 02/08/21 02/08/21 02/08/21 02/08/21 04:39 05:00 06:00 07:00 Temp 36.6 Pulse 93 98 97 Resp 25 25 24 B/P (MAP) 105/65 (78) 102/61 (75) 108/70 (83) Pulse Ox 96 95 96 O2 Delivery Mechanical Ventilator Mechanical Ventilator Mechanical Ventilator O2 Flow Rate 30.00 30.00 30.00 02/08/21 02/08/21 02/08/21 02/08/21 07:00 07:52 08:00 08:00 Temp 36.7 Pulse 98 91 Resp 26 B/P (MAP) 112/72 (85) Pulse Ox 99 100 O2 Delivery Mechanical Ventilator Mechanical Ventilator O2 Flow Rate 30.00 FiO2 30 02/08/21 08:03 Pulse 90 Resp 29 Pulse Ox 98 FiO2 30 02/08/21 00:00 Intake Total 2090 ml Output Total 115 ml Balance 1975 ml Weight (Pounds): 280 Weight (Ounces): 0.0 Weight (Calculated Kilograms): 127.707015 Constitutional: other (intubated, sedated, on mech vent) Respiratory: No accessory muscle use; other (fair bilat air entry, diminished at the bases) Cardiovascular: regular rate-rhythm, S1 and S2, systolic murmur (soft MAIRA at card base) Gastrointestional: No tender; soft; No guarding, No rebound; audible bowel sounds Extremities: swelling (mod, non-pitting, bilateral leg edema); No clubbing, No cyanosis Neurologic/Psychiatric: other (intubated, sedated, on mech vent) Skin: warm/dry Results/Procedures: Labs Laboratory Tests 02/07/21 11:41: Glucometer 148H 02/07/21 17:52: Glucometer 145H 02/08/21 00:39: Glucometer 187H 02/08/21 04:30: White Blood Count 8.3, Red Blood Count 3.07L, Hemoglobin 7.9L, Hematocrit 28L, Mean Corpuscular Volume 90, Mean Corpuscular Hemoglobin 26, Mean Corpuscular Hemoglobin Concent 29L, Red Cell Distribution Width 26.6H, Platelet Count 248, Mean Platelet Volume 11.2, Immature Granulocyte % (Auto) 7, Neutrophils (%) (Auto) 77H, Lymphocytes (%) (Auto) 8L, Monocytes (%) (Auto) 7, Eosinophils (%) (Auto) 1, Basophils (%) (Auto) 0, Neutrophils # (Auto) 6.4, Lymphocytes # (Auto) 0.7L, Monocytes # (Auto) 0.6, Eosinophils # (Auto) 0.1, Basophils # (Auto) 0.0, Immature Granulocyte # (Auto) 0.6H, Sodium Level 148H, Potassium Level 4.6, Chloride Level 119H, Carbon Dioxide Level 15L, Anion Gap 14, Blood Urea Nitrogen 60H, Creatinine 2.20H, Estimat Glomerular Filtration Rate 25, BUN/Creatinine Ratio 27, Glucose Level 149H, Calcium Level 7.8L, Phosphorus Level 5.2H, Magnesium Level 2.2 02/08/21 04:44: Blood Gas Puncture Site R RADIAL, Blood Gas Patient Temperature 36.6, Arterial Blood pH 7.31*L, Arterial Blood Partial Pressure CO2 33L, Arterial Blood Partial Pressure O2 74L, Arterial Blood HCO3 16*L, Arterial Blood Total CO2 17.1L, Arterial Blood Oxygen Saturation 97, Arterial Blood Base Excess -9.1L, Denilson Test YES-POS, Blood Gas Ventilator Setting YES, Blood Gas Inspired Oxygen NA Microbiology 02/05/21 Gram Stain - Final, Complete 02/05/21 Sputum Culture - Final, Complete Enterobacter cloacae complex YEAST Usual upper respiratory kapil 02/04/21 Urine Culture - Final, Complete YEAST 02/04/21 Blood Culture - Preliminary, Resulted No growth A/P: Assessment: Acute, hypoxic respiratory failure, likely multifactorial (see below) Obesity with probable obesity-hypoventilation Ac on chornic HFpEF - Echocardiogram of January 13, 2020 showed concentric hypertrophy. LVEF 55-60%. LA mildly dilated. PASP approx 28 mmHg - Echocardiogram on February 03, 2021: LVEF 60-65%, mild to mod concentric LVH, mild MAC, mild MR, PASP 25-30 mmHg Probable R-sided pneumonia, as indicated on CXR of 02/01/21 and 02/02/21 Troponin level elevated - Probable Type 2 [place] secondary to hypoxia - MPI of January 11, 2020 is indicative of anterolateral ischemia. Mild to mod impairment of global LV systolic function. LVEF 40%. Mod cardiomegaly. Cardiac cath advised and scheduled, however she cancelled and did not f/u. H/o hypertension H/o hyperlipidemia H/o amenorrhea since 2015 due to polycystic ovarian H/o impaired fasting glucose Anemia of undetermined etiology - medical/ICU services managing Plan: * Continue diuretics as needed and as tolerated * Monitor labs * Worsening anemia of undetermined etiology - management per Med and ICU services * Hypotension - hold Norvasc and reduce Coreg * Management of mech vent is with the ICU and Med Svces * Possible transfer to [facility] - management per Med Svces and ICU NATE OVALLE Feb 06, 2021 08:34
--- NOTE | 2021-02-06 08:57 | Tele-ICU Progress Note ---
Subjective Date Seen by a Provider: Feb 06, 2021 Time Seen by a Provider: 08:56 Sepsis Event Evaluation Height, Weight, BMI Height: 5'2.00" Weight: 280lbs. 0.0oz. 127.918139dm; 52.92 BMI Method:Stated Focused Exam Lactate Level 02/04/21 16:50: Lactic Acid Level 1.81 Exam Exam Patient acknowledged, consented, and participated in this virtual visit which was conducted using real time audio/video Vital Signs Date Time Temp Pulse Resp B/P (MAP) Pulse Ox O2 Delivery O2 Flow Rate FiO2 02/06/21 08:12 36.0 02/06/21 08:00 94 Mechanical Ventilator 30 02/06/21 07:30 Mechanical Ventilator 25.00 02/06/21 06:00 78 26 93/57 (69) 98 Mechanical Ventilator 30.00 02/06/21 05:00 78 27 92/63 (73) 97 Mechanical Ventilator 30.00 02/06/21 04:23 95/59 02/06/21 04:00 Mechanical Ventilator 30 02/06/21 04:00 79 24 94/61 (72) 95 Mechanical Ventilator 30.00 02/06/21 03:00 84 27 97/62 (74) 98 Mechanical Ventilator 30.00 02/06/21 02:07 79 27 98 30 02/06/21 02:00 79 25 92/63 (73) 98 Mechanical Ventilator 30.00 02/06/21 01:00 80 02/06/21 01:00 80 24 95/65 (75) 99 Mechanical Ventilator 30.00 02/06/21 00:00 Mechanical Ventilator 30 02/06/21 00:00 82 27 100/65 (77) 98 Mechanical Ventilator 30.00 02/05/21 23:57 37.8 02/05/21 23:13 82 101/63 02/05/21 23:00 82 24 101/63 (76) 98 Mechanical Ventilator 30.00 02/05/21 22:00 80 26 101/60 (74) 98 Mechanical Ventilator 30.00 02/05/21 21:43 77 26 98 30 02/05/21 21:00 78 26 102/64 (77) 97 Mechanical Ventilator 30.00 02/05/21 20:16 Mechanical Ventilator 30 02/05/21 20:00 80 25 106/67 (80) 98 Mechanical Ventilator 30.00 02/05/21 19:20 37.5 02/05/21 19:15 84 34 116/73 (87) 94 Mechanical Ventilator 30.00 02/05/21 19:00 84 02/05/21 18:55 85 38 94 30 02/05/21 18:16 82 130/77 02/05/21 18:00 83 28 130/77 (94) 96 Mechanical Ventilator 30.00 02/05/21 17:00 81 26 125/74 (91) 94 Mechanical Ventilator 30.00 02/05/21 16:15 Mechanical Ventilator 30 02/05/21 16:00 82 29 127/79 (95) 92 Mechanical Ventilator 30.00 02/05/21 16:00 37.3 02/05/21 15:00 82 32 125/74 (91) 91 Mechanical Ventilator 30.00 02/05/21 14:46 82 33 91 30 02/05/21 14:45 37.3 02/05/21 14:23 88 43 91 30 02/05/21 14:01 38.0 02/05/21 14:00 89 21 108/84 (92) 95 Mechanical Ventilator 30.00 02/05/21 13:57 91 57 90 50 02/05/21 13:26 37.4 02/05/21 13:00 86 02/05/21 13:00 86 33 96/61 (73) 91 Mechanical Ventilator 30.00 02/05/21 12:35 Mechanical Ventilator 30 02/05/21 12:10 83 36 92 30 02/05/21 12:00 36.3 02/05/21 12:00 84 35 100/63 (75) 93 Mechanical Ventilator 30.00 02/05/21 11:55 93 115/69 02/05/21 11:00 85 36 108/67 (81) 93 Mechanical Ventilator 30.00 02/05/21 10:00 93 35 115/69 (84) 96 Mechanical Ventilator 30.00 02/05/21 09:00 82 28 107/68 (81) 96 Mechanical Ventilator 30.00 I & O 02/06/21 07:00 Intake Total 1900 ml Output Total 850 ml Balance 1050 ml Height & Weight Height: 5'2.00" Weight: 280lbs. 0.0oz. 127.445111vh; 52.92 BMI Method:Stated General Appearance: No WD/WN, No Mild Distress; Obese, Other (Sedated) HEENT: Moist Mucous Membranes Neck: Full Range of Motion, Normal Inspection Respiratory: Chest Non Tender, Lungs Clear, Other (intubated) Cardiovascular: Regular Rate, Rhythm; No Tachycardia Capillary Refill: Less Than 3 Seconds Gastrointestinal: normal bowel sounds, non tender, soft Extremity: Normal Capillary Refill, Pedal Edema (right leg), Other Neurologic/Psychiatric: No Alert, No Oriented x3, No No Motor/Sensory Deficits, No Normal Mood/Affect Skin: Normal Color, Warm/Dry Results Lab Laboratory Tests 02/05/21 04:55 02/06/21 03:15 Assessment/Plan Assessment/Plan (Tele-ICU Physician , Progress Note ) Available chart/ vitals / labs / Images reviewed Video assessment done using teleICU camera, rest of exam as per RN Discussed with RN Events overnight : LOW GRADE FEVER- PERSISTENT hemodynamically stable, no pressors, I/O - pos 900 Drips , precedex 1.5 prn fentanyl 20 ativan prn not used As per RN exam : lungs clear , Consultants: cards VENT SETTINGS. AC rr 20 (sp 25) TV 420 ( 8 cc/kg) +8 25 % ABG reviewed ROS -1 SBT 02/04 - 10 mins - ? RR A/P Acute resp failure ( on chronic ) hypoxic, hypercarbic - intubated 01/29 -01/30 - cxr with elevted right diphragm- stable - HOLD DIURESIS TODAY with rising CR - follow - will do SBT everyday - she might benefit from trach as terapeutic approach HCAP - vancomycin and cefepime FINISHED COURSE ( recent tx for sepsis - cellulitis (vancomycin 01/27 , finished cefepime 02/01 YEAST IN URINE AND SPUTUM - IN FACE OF STEROIDS - added FLUCONAZOLE 02/01 02/05 - GNR sputum - DISCUSSED WITH PHARMACY - based on local sensitivity/resistance will initiate ABX virginie and await CX AECOPD - OFF steroids Suspected MS - on steroids 500 MG BID - FINISHED 5 days course Acute on chronic diastolic heart failure -ECHO 01/08 - 55% , RVSP 20 mm - diuresis type II non-STEMI - lovenox proph dose 01/29 Anemia - - monitor - for now , w/up as per PCP (received 1 U PCBC 01/28 - resumed hep sq proph - Hb trending down , no bleeding , on Fe supplements DMII - as per PCP - no DKA , but significnt hyperglycemia - OFF STEROID NOW - FOLLOW CLOSELY , BETTER CONTROL Chtonic hypoxia - VQ neg and LE US neg 01/09/21 an risk for HAILE /OHV Hypernatremis with diuresis - increase H20 on ng flushes UDS positive for opioids and amphetamine last admission -on phentermine for weight loss -on hydrocodone for foot and leg pain rib fx. seen on cxr. - no c/o or history Lines : R IJ 01/29 , (Central Line Necessity Reviewed) Hernandez: + OG: + Nutrition: TOLERATES WELL Analgesia: fentanyl prn Anxiety/ delirium VTE Prophylaxis: hold lovenox 01/29 - resume proph 01/30 Stress Ulcer Prophylaxis: PPI Glycemic Control: poor Plans in collaboration with bedside consultants and IM MDs. Discussed with RN to reach out if any questions or concerns discussed with Dr Soni yesterday A total of 50 minutes of critical care time was devoted to this patient today, required to treat and/or prevent further deterioration of critical care condition ( as above ) . NOÉ CAO MD Feb 06, 2021 08:57
[2021-02-06] MEDS: ASPIRIN E.C. 81 MG (ECOTRIN) TAB PO SCH (09:08)
[2021-02-06] MEDS: ENOXAPARIN 40 MG/0.4 ML (LOVENOX) SYR SC SCH (09:08)
[2021-02-06] MEDS: IRON SUCROSE 200 MG/10 ML (VENOFER) VIAL IV SCH (09:08)
[2021-02-06] MEDS: PANTOPRAZOLE 40 MG (PROTONIX) VIAL IV SCH ×2 (09:08→20:07)
[2021-02-06] MEDS: FLUCONAZOLE 100 MG/50 ML 50 ML IV SCH (09:08)
[2021-02-06] MEDS: MEROPENEM 500 MG/SWFI 10 ML IV PUSH IV SCH ×6 (09:50→22:08)
--- NOTE | 2021-02-06 11:47 | Progress Note - Cardiology ---
Cardiology SOAP Progress Note Subjective: Intubated, on mech vent, noncommunicative Nurse reports low urine output in the last 12-24 hours Objective: I&O/Vital Signs 02/05/21 02/06/21 02/06/21 02/06/21 23:57 00:00 00:00 01:00 Temp 37.8 Pulse 82 80 Resp 24 B/P (MAP) 100/65 (77) 95/65 (75) Pulse Ox 98 99 O2 Delivery Mechanical Ventilator Mechanical Ventilator Mechanical Ventilator O2 Flow Rate 30.00 30.00 FiO2 30 02/06/21 02/06/21 02/06/21 02/06/21 01:00 02:00 02:07 03:00 Pulse 80 79 79 84 Resp B/P (MAP) 92/63 (73) 97/62 (74) Pulse Ox 98 98 98 O2 Delivery Mechanical Ventilator Mechanical Ventilator O2 Flow Rate 30.00 30.00 FiO2 30 02/06/21 02/06/21 02/06/21 02/06/21 04:00 04:00 04:23 05:00 Pulse 79 78 Resp B/P (MAP) 94/61 (72) 95/59 92/63 (73) Pulse Ox 95 97 O2 Delivery Mechanical Ventilator Mechanical Ventilator Mechanical Ventilator O2 Flow Rate 30.00 30.00 FiO2 30 02/06/21 02/06/21 02/06/21 02/06/21 06:00 07:00 07:30 08:00 Pulse 78 87 Resp 26 B/P (MAP) 93/57 (69) Pulse Ox 98 94 O2 Delivery Mechanical Ventilator Mechanical Ventilator Mechanical Ventilator O2 Flow Rate 30.00 25.00 FiO2 30 02/06/21 02/06/21 02/06/21 08:12 09:31 10:27 Temp 36.0 Pulse 78 92 Resp 24 B/P (MAP) 93/57 Pulse Ox 92 FiO2 28 02/06/21 00:00 Intake Total 1080 ml Output Total 475 ml Balance 605 ml Weight (Pounds): 280 Weight (Ounces): 0.0 Weight (Calculated Kilograms): 127.729947 Constitutional: other (intubated, sedated, on mech vent) Respiratory: No accessory muscle use; other (fair bilat air entry, diminished at the bases) Cardiovascular: regular rate-rhythm, S1 and S2, systolic murmur (soft MAIRA at card base) Gastrointestional: No tender; soft; No guarding, No rebound; audible bowel sounds Extremities: swelling (mod, non-pitting, bilateral leg edema); No clubbing, No cyanosis Neurologic/Psychiatric: other (intubated, sedated, on mech vent) Skin: warm/dry Results/Procedures: Labs Laboratory Tests 02/05/21 12:10: Glucometer 241H 02/05/21 17:19: Glucometer 221H 02/05/21 19:32: Glucometer 211H 02/05/21 23:56: Glucometer 175H 02/06/21 03:15: White Blood Count 8.9, Red Blood Count 2.81L, Hemoglobin 7.0L, Hematocrit 25L, Mean Corpuscular Volume 90, Mean Corpuscular Hemoglobin 25, Mean Corpuscular Hemoglobin Concent 27L, Red Cell Distribution Width 30.4H, Platelet Count 281, Mean Platelet Volume 11.4, Immature Granulocyte % (Auto) 2, Neutrophils (%) (Auto) 87H, Lymphocytes (%) (Auto) 6L, Monocytes (%) (Auto) 6, Eosinophils (%) (Auto) 0, Basophils (%) (Auto) 0, Neutrophils # (Auto) 7.7, Lymphocytes # (Auto) 0.5L, Monocytes # (Auto) 0.5, Eosinophils # (Auto) 0.0, Basophils # (Auto) 0.0, Immature Granulocyte # (Auto) 0.2H, Blood Gas Puncture Site RIGHT RADIAL, Blood Gas Patient Temperature 38.0, Arterial Blood pH 7.42, Arterial Blood Partial Pressure CO2 27L, Arterial Blood Partial Pressure O2 155H, Arterial Blood HCO3 18L, Arterial Blood Total CO2 17.6L, Arterial Blood Oxygen Saturation 98, Arterial Blood Base Excess -6.6L, Denilson Test YES-POS, Blood Gas Ventilator Setting YES, Blood Gas Inspired Oxygen 30%, Sodium Level 148H, Potassium Level 4.0, Chloride Level 119H, Carbon Dioxide Level 17L, Anion Gap 12, Blood Urea Nitrogen 53H, Creatinine 1.41H, Estimat Glomerular Filtration Rate 42, BUN/Creatinine Ratio 38, Glucose Level 218H, Calcium Level 7.4L, Phosphorus Level 3.6, Magnesium Level 2.1, Triglycerides Level 219H Microbiology 02/05/21 Gram Stain - Final, Resulted 02/05/21 Sputum Culture - Preliminary, Resulted Gram Negative Nilo YEAST Usual upper respiratory kapil 02/04/21 Urine Culture - Final, Complete YEAST 02/04/21 Blood Culture - Preliminary, Resulted No growth Laboratory Tests 02/05/21 04:55 02/06/21 03:15 A/P: Assessment: Intravascular volume depletion, associated with diminished urine output and somewhat low bp, ICU and Hospitalist svces amangin Acute, hypoxic respiratory failure, likely multifactorial (see below) Obesity with probable obesity-hypoventilation Ac on chornic HFpEF, does not appear to be in any overt CHF at this time - Echocardiogram of January 13, 2020 showed concentric hypertrophy. LVEF 55-60%. LA mildly dilated. PASP approx 28 mmHg - Echocardiogram on February 03, 2021: LVEF 60-65%, mild to mod concentric LVH, mild MAC, mild MR, PASP 25-30 mmHg Probable R-sided pneumonia, as indicated on CXR of 02/01/21 and 02/02/21 Troponin level elevated - Probable Type 2 KS secondary to hypoxia - MPI of January 11, 2020 is indicative of anterolateral ischemia. Mild to mod impairment of global LV systolic function. LVEF 40%. Mod cardiomegaly. Cardiac cath advised and scheduled, however she cancelled and did not f/u. H/o hypertension H/o hyperlipidemia H/o amenorrhea since 2015 due to polycystic ovarian H/o impaired fasting glucose Anemia of undetermined etiology - medical/ICU services managing Plan: * We recommend d/c diuretics and administration of iv fluids (ICU svces are managing this) * Monitor labs * Worsening anemia of undetermined etiology - consider blood transfusion, management per Med and ICU services * Hypotension - hold Norvasc and reduce Coreg * Management of mech vent is with the ICU and Med Svces * Possible transfer to [facility] - management per Med and ICU svces FRANCO BROTHERS MD FACP FAC CCDS Feb 06, 2021 11:47
[2021-02-06] MEDS: ROSUVASTATIN 20 MG (CRESTOR) TABLET PO SCH (20:07)
[2021-02-06] MEDS: traZODone 100 MG (DESYREL) TAB PO SCH (20:07)
[2021-02-06] MEDS: LORazepam INJ 2 MG/ML (ATIVAN) VIAL IVP PRN (20:12)
--- NOTE | 2021-02-06 20:21 | Progress Note ---
Subjective Subjective Date Seen by Provider: Feb 06, 2021 Time Seen by Provider: 13:05 Still intubated. While speaking with we were discussing plan of care and the option of extubation and if she does do well then comfort care. I looked up at patient and she was shaking her head. So I took her hand and I asked her to squeezed my fingers and she did. Then I asked her if she would like us to remove the breathing tube and she shook her head "no". I asked her if she would like us to leave the ET tube in and keep trying and she shook her head "yes''. Review of Systems ROS Unable to Obtain: intubated Neurological: Other All Other Systems Reviewed All Other Systems Reviewed: Yes Objective Exam Vital Signs Vital Signs Date Time Temp Pulse Resp B/P (MAP) Pulse Ox O2 Delivery O2 Flow Rate FiO2 02/06/21 19:10 78 28 102/65 (77) 95 Mechanical Ventilator 30.00 02/06/21 18:35 Mechanical Ventilator 30.00 02/06/21 18:25 77 22 100 50 02/06/21 18:00 78 28 108/62 (77) 100 Mechanical Ventilator 25.00 02/06/21 17:00 78 106/67 (80) 100 Mechanical Ventilator 25.00 02/06/21 16:00 79 30 107/65 (79) 100 Mechanical Ventilator 25.00 02/06/21 15:35 94 Mechanical Ventilator 30 02/06/21 15:34 36.4 02/06/21 15:25 89 32 95 50 02/06/21 15:00 88 100/63 (75) 100 Mechanical Ventilator 25.00 02/06/21 14:55 79 97/62 02/06/21 14:00 81 31 102/54 (70) 86 Mechanical Ventilator 25.00 02/06/21 13:00 79 02/06/21 13:00 79 25 95/61 (72) 100 Mechanical Ventilator 25.00 02/06/21 12:47 36.3 02/06/21 12:00 80 26 97/62 (74) 100 Mechanical Ventilator 25.00 02/06/21 11:59 94 Mechanical Ventilator 30 02/06/21 11:00 92 45 86 02/06/21 11:00 89 15 95/64 (74) 94 Mechanical Ventilator 25.00 02/06/21 10:27 92 24 92 28 02/06/21 10:00 98 40 92/55 (67) 90 Mechanical Ventilator 25.00 02/06/21 09:31 78 93/57 02/06/21 09:00 80 24 88/54 (65) 94 Mechanical Ventilator 25.00 02/06/21 08:12 36.0 02/06/21 08:00 82 18 88/59 (69) 93 Mechanical Ventilator 25.00 02/06/21 08:00 94 Mechanical Ventilator 30 02/06/21 07:30 Mechanical Ventilator 25.00 02/06/21 07:00 87 02/06/21 07:00 87 25 92/53 (66) 93 02/06/21 06:55 96 27 96 25 02/06/21 06:00 78 26 93/57 (69) 98 Mechanical Ventilator 30.00 02/06/21 05:00 78 27 92/63 (73) 97 Mechanical Ventilator 30.00 02/06/21 04:23 95/59 02/06/21 04:00 Mechanical Ventilator 30 02/06/21 04:00 79 24 94/61 (72) 95 Mechanical Ventilator 30.00 02/06/21 03:00 84 27 97/62 (74) 98 Mechanical Ventilator 30.00 02/06/21 02:07 79 27 98 30 02/06/21 02:00 79 25 92/63 (73) 98 Mechanical Ventilator 30.00 02/06/21 01:00 80 02/06/21 01:00 80 24 95/65 (75) 99 Mechanical Ventilator 30.00 02/06/21 00:00 Mechanical Ventilator 30 02/06/21 00:00 82 27 100/65 (77) 98 Mechanical Ventilator 30.00 02/05/21 23:57 37.8 02/05/21 23:13 82 101/63 02/05/21 23:00 82 24 101/63 (76) 98 Mechanical Ventilator 30.00 02/05/21 22:00 80 26 101/60 (74) 98 Mechanical Ventilator 30.00 02/05/21 21:43 77 26 98 30 02/05/21 21:00 78 26 102/64 (77) 97 Mechanical Ventilator 30.00 I & O 02/06/21 07:00 Intake Total 1900 ml Output Total 850 ml Balance 1050 ml General Appearance: No WD/WN, No Mild Distress; Obese, Other (intubated) Eyes: Bilateral Eye Normal Inspection, Bilateral Eye PERRL HEENT: Moist Mucous Membranes Neck: Full Range of Motion, Normal Inspection Respiratory: Chest Non Tender, Lungs Clear, Other (intubated) Cardiovascular: Regular Rate, Rhythm; No Tachycardia Gastrointestinal: Normal Bowel Sounds Extremity: Normal Capillary Refill, Pedal Edema (right leg), Other Neurologic/Psychiatric: Alert; No Oriented x3, No No Motor/Sensory Deficits, No Normal Mood/Affect Skin: Normal Color, Warm/Dry Results Lab Laboratory Tests 02/05/21 23:56: Glucometer 175H 02/06/21 03:15: White Blood Count 8.9, Red Blood Count 2.81L, Hemoglobin 7.0L, Hematocrit 25L, Mean Corpuscular Volume 90, Mean Corpuscular Hemoglobin 25, Mean Corpuscular Hemoglobin Concent 27L, Red Cell Distribution Width 30.4H, Platelet Count 281, Mean Platelet Volume 11.4, Immature Granulocyte % (Auto) 2, Neutrophils (%) (Auto) 87H, Lymphocytes (%) (Auto) 6L, Monocytes (%) (Auto) 6, Eosinophils (%) (Auto) 0, Basophils (%) (Auto) 0, Neutrophils # (Auto) 7.7, Lymphocytes # (Auto) 0.5L, Monocytes # (Auto) 0.5, Eosinophils # (Auto) 0.0, Basophils # (Auto) 0.0, Immature Granulocyte # (Auto) 0.2H, Blood Gas Puncture Site RIGHT RADIAL, Blood Gas Patient Temperature 38.0, Arterial Blood pH 7.42, Arterial Blood Partial Pressure CO2 27L, Arterial Blood Partial Pressure O2 155H, Arterial Blood HCO3 18L, Arterial Blood Total CO2 17.6L, Arterial Blood Oxygen Saturation 98, Arterial Blood Base Excess -6.6L, Denilson Test YES-POS, Blood Gas Ventilator Setting YES, Blood Gas Inspired Oxygen 30%, Sodium Level 148H, Potassium Level 4.0, Chloride Level 119H, Carbon Dioxide Level 17L, Anion Gap 12, Blood Urea Nitrogen 53H, Creatinine 1.41H, Estimat Glomerular Filtration Rate 42, BUN/Creatinine Ratio 38, Glucose Level 218H, Calcium Level 7.4L, Phosphorus Level 3.6, Magnesium Level 2.1, Triglycerides Level 219H 02/06/21 12:03: Glucometer 174H 02/06/21 17:31: Glucometer 183H 02/06/21 20:04: Glucometer 204H Microbiology 02/05/21 Gram Stain - Final, Resulted 02/05/21 Sputum Culture - Preliminary, Resulted Enterobacter cloacae YEAST Usual upper respiratory kapil 02/04/21 Urine Culture - Final, Complete YEAST 02/04/21 Blood Culture - Preliminary, Resulted No growth Assessment/Plan Assessment/Plan Assessment and Plan 02/01/21 Cr stable. Diuresing appreciate eICU, cardiology hgb stable- infusing Fe. -fluconazole added for yeast in sputum/urine. -finished cefepime 02/01/21 -stopped high dose steroids 02/01/21 (5 days) -sedation vacation- increased resp distress. 02/02/21- blood sugars still high- go up to sliding scale C- gave additional 10 units levemir once. updated that her kidneys were functioning well through this. -current issue is her respiratory status. continue as above 02/03/21- replacing potassium. Erhlichiosis pending. blood sugar improved. Updated father of patient at bedside. SBT a little better- SBT trial tomorrow. 02/04/21- continue with free water with OG tube. recheck Na level. Will see how SBT goes- possible extubation tomorrow depending on what decides- reasoning is Miryam would not want to be intubated. 02/05/21- spoke with eICU - spoke with patient's - they still do not w ant a trach. Awaking cultures from sputum. Continue with SBTs trials. Will keep discussing her care- ultimately though will go with 's decisions which do line up with what patient has said on last admission. Though her mental state does play a role- of being tired of dealing with her health problems. She would not like to be dependent on a trach or ventilator. 02/06/21- on meropenem to cover pna. Did not tolerate SBT today. UOP decreased. Cr elevated. appreciate eICU consult. erhlichiosis IgM elevated, IgG negative. Patient indicated she did not want to give up on and go on comfort care. Dispo: Prognosis- guarded/poor Problems: (1) Acute respiratory failure with hypoxia Assessment & Plan: supportive care- RT, oxygen, diuresing- (2) Disability due to neurological disorder Assessment & Plan: still unclear on etiology- rechecking erlichiosis panel. Steroids did not help. - had signs of MS- oligoclonal bands- elevated on LP from last admission. Would be good to have an MRI of her head/neck. (3) Acute on chronic diastolic heart failure (4) Essential hypertension (5) Chronic kidney disease Qualifiers: (6) Obesity hypoventilation syndrome (7) Anemia of chronic disease (8) Morbid obesity (9) Type 2 diabetes mellitus with hyperglycemia (10) Positive serology for Erlichiosis Assessment & Plan: on doxycycline CHAZ ADLER MD Feb 06, 2021 20:21
[2021-02-07] VITALS (31 sets, daily range): BP systolic 92–116; BP diastolic 50–71
[2021-02-07] MEDS: LORazepam INJ 2 MG/ML (ATIVAN) VIAL IVP PRN ×2 (00:16→06:28)
[2021-02-07] MEDS: DexMEDEtomidine 250 ML DRIP 250 ML IV SCH ×5 (00:17→21:53)
[2021-02-07] MEDS: inSUlin ASPART (NovoLOG) 1 UNIT/0.01 ML (CHARGE PER UNIT) SQ SCH ×4 (00:18→18:06)
[2021-02-07] MEDS: RT-ALBUTEROL/IPRATROPIUM 3 ML (DUONEB) VIAL INH SCH ×4 (02:51→19:20)
[2021-02-07] MEDS: fentaNYL DRIP PRE-MIX 250 ML IV SCH ×3 (03:54→19:24)
[2021-02-07] MEDS: MEROPENEM 500 MG/SWFI 10 ML IV PUSH IV SCH ×8 (04:12→21:22)
[2021-02-07 04:27] LABS: BASOPHILS % (AUTO) 0 % (0-10); EOSINOPHILS % (AUTO) 0 % (0-10); HEMATOCRIT 25 % (35-52); LYMPHOCYTES # (AUTO) 0.6 10^3/uL (1.0-4.0); LYMPHOCYTES % (AUTO) 6 % (12-44); MEAN CORPUSCULAR HGB CONC 27 g/dL (32-36); MEAN CORPUSCULAR VOLUME 90 fL (80-99); MONOCYTES # (AUTO) 0.7 10^3/uL (0.0-1.0); MONOCYTES % (AUTO) 7 % (0-12); NEUTROPHILS # (AUTO) 8.3 10^3/uL (1.8-7.8); NEUTROPHILS % (AUTO) 82 % (42-75); PLATELET COUNT 290 10^3/uL (130-400); WHITE BLOOD COUNT 10.1 10^3/uL (4.3-11.0)
[2021-02-07 04:35] LABS: POTASSIUM 4.1 MMOL/L (3.6-5.0)
[2021-02-07 04:37] LABS: CALCIUM 7.5 MG/DL (8.5-10.1); MEAN CORPUSCULAR HEMOGLOBIN 26 pg (25-34)
[2021-02-07 04:41] LABS: CREATININE SERUM 1.96 MG/DL (0.60-1.30); PHOSPHORUS 4.5 MG/DL (2.3-4.7)
[2021-02-07 04:43] LABS: MAGNESIUM 2.2 MG/DL (1.6-2.4)
[2021-02-07 04:51] LABS: ABG BASE EXCESS -7.5 MMOL/L (-2.5-2.5); ABG OXYGEN SATURATION 97 % (94-100); ABG PCO2 35 MMHG (35-45); ABG PO2 77 MMHG (79-93); ABG TCO2 18.5 MMOL/L (21.0-31.0)
[2021-02-07 04:53] LABS: ABG PH 7.32 (7.37-7.43)
[2021-02-07 04:55] LABS: ALLENS TEST YES-POS; INSPIRED O2 30%; PATIENT TEMP 37.1; VENTILATOR YES
[2021-02-07] MEDS: POTASSIUM CL 10MEQ/50ML IVPB 50 ML IV SCH (05:23)
[2021-02-07] MEDS: KCL 20 MEQ TAB (K-DUR) PO SCH (05:23)
[2021-02-07] MEDS: MAGNESIUM 1 GM/100 ML IVPB 100 ML IV SCH (05:23)
[2021-02-07] MEDS ORDERED: NS IV 500 ML 500 ML ONE (06:11)
[2021-02-07] MEDS ORDERED: NS IV 500 ML 500 ML IV SCH ×3 (06:15→17:15)
[2021-02-07] MEDS: DOXYCYCLINE 100 MG (VIBRAMYCIN) TABLET PO SCH ×2 (06:29→17:19)
--- NOTE | 2021-02-07 06:51 | Occ Therapy Progress Note ---
Therapy Progress Note Pt is currently intubated. OT will continue to monitor pt and initiate therapy when pt is more medically stable and able to actively participate in skilled therapy. KENJI DELANEY Feb 07, 2021 06:51
--- NOTE | 2021-02-07 07:50 | Physical Therapy Progress Note ---
Therapy Progress Note Pt is currently intubated. PT will continue to monitor pt and initiate therapy when pt is more medically stable and able to actively participate in skilled therapy. DIPKIA ZHANG PT Feb 07, 2021 07:50
[2021-02-07] MEDS ORDERED: ALBUMIN 25% 25 GM/100 ML 50 ML IV SCH (08:30)
[2021-02-07] MEDS ORDERED: NS 100 ML (IVPB) BAG IV ONE (08:30)
--- NOTE | 2021-02-07 08:39 | Tele-ICU Progress Note ---
Subjective Date Seen by a Provider: Feb 07, 2021 Time Seen by a Provider: 08:38 Sepsis Event Evaluation Height, Weight, BMI Height: 5'2.00" Weight: 280lbs. 0.0oz. 127.165925wz; 52.92 BMI Method:Stated Focused Exam Lactate Level 02/04/21 16:50: Lactic Acid Level 1.81 Exam Exam Patient acknowledged, consented, and participated in this virtual visit which was conducted using real time audio/video Vital Signs Date Time Temp Pulse Resp B/P (MAP) Pulse Ox O2 Delivery O2 Flow Rate FiO2 02/07/21 08:00 36.6 02/07/21 06:00 102 60 96 02/07/21 06:00 96 97/60 (72) 94 Mechanical Ventilator 30.00 02/07/21 05:38 91/62 02/07/21 05:00 81 9 99/61 (74) 99 Mechanical Ventilator 30.00 02/07/21 04:41 37.1 02/07/21 04:00 91 22 97/59 (72) 98 Mechanical Ventilator 30.00 02/07/21 04:00 Mechanical Ventilator 30 02/07/21 03:00 92 26 97/56 (70) 97 Mechanical Ventilator 30.00 02/07/21 02:51 90 27 97 30 02/07/21 02:00 75 25 93/57 (69) 98 Mechanical Ventilator 30.00 02/07/21 01:00 75 10 92/58 (69) 97 Mechanical Ventilator 30.00 02/07/21 01:00 75 02/07/21 00:17 91/51 02/07/21 00:00 37.0 02/07/21 00:00 76 25 95/64 (74) 99 Mechanical Ventilator 30.00 02/07/21 00:00 Mechanical Ventilator 30 02/06/21 23:00 76 26 102/63 (76) 99 Mechanical Ventilator 30.00 02/06/21 22:00 77 28 102/62 (75) 100 Mechanical Ventilator 30.00 02/06/21 21:23 79 27 95 30 02/06/21 21:00 84 25 97/58 (71) 97 Mechanical Ventilator 30.00 02/06/21 20:47 36.4 02/06/21 20:26 Mechanical Ventilator 30 02/06/21 20:00 79 28 110/69 (83) 97 Mechanical Ventilator 30.00 02/06/21 19:10 78 28 102/65 (77) 95 Mechanical Ventilator 30.00 02/06/21 19:00 78 02/06/21 18:35 Mechanical Ventilator 30.00 02/06/21 18:25 77 22 100 50 02/06/21 18:00 78 28 108/62 (77) 100 Mechanical Ventilator 25.00 02/06/21 17:00 78 106/67 (80) 100 Mechanical Ventilator 25.00 02/06/21 16:00 79 30 107/65 (79) 100 Mechanical Ventilator 25.00 02/06/21 15:35 94 Mechanical Ventilator 30 02/06/21 15:34 36.4 02/06/21 15:25 89 32 95 50 02/06/21 15:00 88 100/63 (75) 100 Mechanical Ventilator 25.00 02/06/21 14:55 79 97/62 02/06/21 14:00 81 31 102/54 (70) 86 Mechanical Ventilator 25.00 02/06/21 13:00 79 02/06/21 13:00 79 25 95/61 (72) 100 Mechanical Ventilator 25.00 02/06/21 12:47 36.3 02/06/21 12:00 80 26 97/62 (74) 100 Mechanical Ventilator 25.00 02/06/21 11:59 94 Mechanical Ventilator 30 02/06/21 11:00 92 45 86 02/06/21 11:00 89 15 95/64 (74) 94 Mechanical Ventilator 25.00 02/06/21 10:27 92 24 92 28 02/06/21 10:00 98 40 92/55 (67) 90 Mechanical Ventilator 25.00 02/06/21 09:31 78 93/57 02/06/21 09:00 80 24 88/54 (65) 94 Mechanical Ventilator 25.00 I & O 02/07/21 07:00 Intake Total 2450 ml Output Total 365 ml Balance 2085 ml Height & Weight Height: 5'2.00" Weight: 280lbs. 0.0oz. 127.231466ov; 52.92 BMI Method:Stated General Appearance: No WD/WN, No Mild Distress; Obese, Other (intubated) HEENT: Moist Mucous Membranes Neck: Full Range of Motion, Normal Inspection Respiratory: Chest Non Tender, Lungs Clear, Other (intubated) Cardiovascular: Regular Rate, Rhythm; No Tachycardia Capillary Refill: Less Than 3 Seconds Gastrointestinal: normal bowel sounds, non tender, soft Extremity: Normal Capillary Refill, Pedal Edema (right leg), Other Neurologic/Psychiatric: Alert; No Oriented x3, No No Motor/Sensory Deficits, No Normal Mood/Affect Skin: Normal Color, Warm/Dry Results Lab Laboratory Tests 02/06/21 03:15 02/07/21 04:30 Assessment/Plan Assessment/Plan (Tele-ICU Physician , Progress Note ) Available chart/ vitals / labs / Images reviewed Video assessment done using teleICU camera, rest of exam as per RN Discussed with RN Events overnight : LOW GRADE FEVER- PERSISTENT hemodynamically stable, no pressors, I/O - pos 900 Drips , precedex 1.5 prn fentanyl 150 ativan prn not used As per RN exam : lungs clear , Consultants: cards VENT SETTINGS. AC rr 20 (sp 25) TV 420 ( 8 cc/kg) +8 25 % ABG reviewed ROS -1 SBT 02/04 - 10 mins - ? RR SBT 02/07 - at night - reportedly did well? settings A/P Acute resp failure ( on chronic ) hypoxic, hypercarbic - intubated 01/29 -01/30 - cxr with elevted right diphragm- stable - HOLD DIURESIS 02/06 and given albulmin for rising CT TODAY with rising CR - will do albumin . and NS - follow closely - will do SBT everyday for exresise -+ ENTEROBACTER in sputunm - follow - she might benefit from trach as terapeutic approach HCAP - vancomycin and cefepime FINISHED COURSE ( recent tx for sepsis - cellulitis (vancomycin 01/27 , finished cefepime 02/01 YEAST IN URINE AND SPUTUM - IN FACE OF STEROIDS - added FLUCONAZOLE 02/01 02/05 - ENTEROBACTER sputum - 02/06 started MERREM - also has line 01/29 - reculture 02/07 AECOPD - OFF steroids Suspected MS - on steroids 500 MG BID - FINISHED 5 days course Acute on chronic diastolic heart failure -ECHO 01/08 - 55% , RVSP 20 mm - diuresis type II non-STEMI - lovenox proph dose 01/29 Anemia - - monitor - for now , w/up as per PCP (received 1 U PCBC 01/28 - resumed hep sq proph - Hb trending down , no bleeding , on Fe supplements DMII - as per PCP - no DKA , but significnt hyperglycemia - OFF STEROID NOW - FOLLOW CLOSELY , BETTER CONTROL Chtonic hypoxia - VQ neg and LE US neg 01/09/21 an risk for HAILE /OHV Hypernatremis with diuresis - increase H20 on ng flushes UDS positive for opioids and amphetamine last admission -on phentermine for weight loss -on hydrocodone for foot and leg pain rib fx. seen on cxr. - no c/o or history Lines : R IJ 01/29 , (Central Line Necessity Reviewed) Hernandez: + OG: + Nutrition: TOLERATES WELL Analgesia: fentanyl prn Anxiety/ delirium VTE Prophylaxis: hold lovenox 01/29 - resume proph 01/30 Stress Ulcer Prophylaxis: PPI Glycemic Control: poor Plans in collaboration with bedside consultants and IM MDs. Discussed with RN to reach out if any questions or concerns as per RN- Dr Tolentino had discussion with sanjay in room 02/06 , and patient was awake enough to express her williness to cont with vent and current care A total of 50 minutes of critical care time was devoted to this patient today, required to treat and/or prevent further deterioration of critical care condition ( as above ) . NOÉ CAO MD Feb 07, 2021 08:39
[2021-02-07] MEDS ORDERED: NS IV 500 ML 500 ML IV ONE ×2 (08:45)
[2021-02-07] MEDS: ENOXAPARIN 40 MG/0.4 ML (LOVENOX) SYR SC SCH (09:00)
[2021-02-07] MEDS: PANTOPRAZOLE 40 MG (PROTONIX) VIAL IV SCH ×2 (09:01→21:22)
[2021-02-07] MEDS: ASPIRIN E.C. 81 MG (ECOTRIN) TAB PO SCH (09:01)
[2021-02-07] MEDS: FLUCONAZOLE 100 MG/50 ML 50 ML IV SCH (09:17)
--- NOTE | 2021-02-07 16:31 | Progress Note - Cardiology ---
Cardiology SOAP Progress Note Subjective: Intubated, on mech vent, non-communicative Objective: I&O/Vital Signs 02/07/21 02/07/21 02/07/21 02/07/21 04:41 05:00 05:38 06:00 Temp 37.1 Pulse 81 96 Resp 9 B/P (MAP) 99/61 (74) 91/62 97/60 (72) Pulse Ox 99 94 O2 Delivery Mechanical Ventilator Mechanical Ventilator O2 Flow Rate 30.00 30.00 02/07/21 02/07/21 02/07/21 02/07/21 06:00 06:33 07:00 08:00 Pulse 102 91 87 Resp 60 7 B/P (MAP) 99/58 (72) Pulse Ox 96 97 97 O2 Delivery Mechanical Ventilator Mechanical Ventilator O2 Flow Rate 30.00 FiO2 30 02/07/21 02/07/21 02/07/21 02/07/21 08:00 08:00 09:00 10:00 Temp 36.6 Pulse 82 80 103 Resp 28 34 B/P (MAP) 99/63 (75) 98/60 (73) 98/57 (71) Pulse Ox 98 99 96 O2 Delivery Mechanical Ventilator Mechanical Ventilator Mechanical Ventilator O2 Flow Rate 30.00 30.00 30.00 02/07/21 02/07/21 02/07/21 02/07/21 10:36 11:00 11:15 11:43 Temp 37.2 Pulse 95 92 95 Resp 28 29 B/P (MAP) 102/63 (76) 101/60 Pulse Ox 98 98 O2 Delivery Mechanical Ventilator O2 Flow Rate 30.00 FiO2 30 02/07/21 02/07/21 02/07/21 02/07/21 12:00 12:00 13:00 13:06 Pulse 88 102 103 Resp 25 29 B/P (MAP) 102/68 (79) 100/59 (73) Pulse Ox 98 97 98 O2 Delivery Mechanical Ventilator Mechanical Ventilator Mechanical Ventilator O2 Flow Rate 30.00 30.00 FiO2 30 02/07/21 02/07/21 02/07/21 02/07/21 14:00 14:30 15:00 16:00 Pulse 95 91 87 Resp 27 44 28 B/P (MAP) 105/63 (77) 109/66 (80) Pulse Ox 98 95 97 97 O2 Delivery Mechanical Ventilator Mechanical Ventilator Mechanical Ventilator O2 Flow Rate 30.00 30.00 FiO2 30 30 02/07/21 02/07/21 16:00 16:25 Pulse 86 86 Resp 24 B/P (MAP) 109/70 (83) 109/70 Pulse Ox 97 O2 Delivery Mechanical Ventilator O2 Flow Rate 30.00 02/06/21 23:59 Intake Total 1180 ml Output Total 225 ml Balance 955 ml Weight (Pounds): 280 Weight (Ounces): 0.0 Weight (Calculated Kilograms): 127.185766 Constitutional: other (intubated, sedated, on mech vent) Respiratory: No accessory muscle use; other (fair bilat air entry, diminished at the bases) Cardiovascular: regular rate-rhythm, S1 and S2, systolic murmur (soft MAIRA at card base) Gastrointestional: No tender; soft; No guarding, No rebound; audible bowel sounds Extremities: swelling (mod, non-pitting, bilateral leg edema); No clubbing, No cyanosis Neurologic/Psychiatric: other (intubated, sedated, on mech vent) Skin: warm/dry Results/Procedures: Labs Laboratory Tests 02/06/21 17:31: Glucometer 183H 02/06/21 20:04: Glucometer 204H 02/07/21 00:15: Glucometer 207H 02/07/21 04:30: White Blood Count 10.1, Red Blood Count 2.71L, Hemoglobin 7.0L, Hematocrit 25L, Mean Corpuscular Volume 90, Mean Corpuscular Hemoglobin 26, Mean Corpuscular Hemoglobin Concent 27L, Red Cell Distribution Width 29.8H, Platelet Count 290, Mean Platelet Volume 12.0, Immature Granulocyte % (Auto) 5, Neutrophils (%) (Auto) 82H, Lymphocytes (%) (Auto) 6L, Monocytes (%) (Auto) 7, Eosinophils (%) (Auto) 0, Basophils (%) (Auto) 0, Neutrophils # (Auto) 8.3H, Lymphocytes # (Auto) 0.6L, Monocytes # (Auto) 0.7, Eosinophils # (Auto) 0.0, Basophils # (Auto) 0.0, Immature Granulocyte # (Auto) 0.5H, Sodium Level 148H, Potassium Level 4.1, Chloride Level 119H, Carbon Dioxide Level 16L, Anion Gap 13, Blood Urea Nitrogen 59H, Creatinine 1.96H, Estimat Glomerular Filtration Rate 29, BUN/Creatinine Ratio 30, Glucose Level 175H, Calcium Level 7.5L, Phosphorus Level 4.5, Magnesium Level 2.2, Triglycerides Level 230H 02/07/21 04:45: Blood Gas Puncture Site RIGHT RADIAL, Blood Gas Patient Temperature 37.1, Art erial Blood pH 7.32*L, Arterial Blood Partial Pressure CO2 35, Arterial Blood P artial Pressure O2 77L, Arterial Blood HCO3 17*L, Arterial Blood Total CO2 18.5L , Arterial Blood Oxygen Saturation 97, Arterial Blood Base Excess -7.5L, Denilson Test YES-POS, Blood Gas Ventilator Setting YES, Blood Gas Inspired Oxygen 30% 02/07/21 11:41: Glucometer 148H Microbiology 02/05/21 Gram Stain - Final, Complete 02/05/21 Sputum Culture - Final, Complete Enterobacter cloacae complex YEAST Usual upper respiratory kapil 02/04/21 Urine Culture - Final, Complete YEAST 02/04/21 Blood Culture - Preliminary, Resulted No growth Laboratory Tests 02/06/21 03:15 02/07/21 04:30 A/P: Assessment: JAMES-2, likely due to intravascular volume depletion due to diuretics, ICU and Hospitalist svces managing Marked anemia of undetermined etiology, ICU and Hospitalist svces managing Acute, hypoxic respiratory failure, likely multifactorial (see below) Obesity with probable obesity-hypoventilation Ac on chornic HFpEF, does not appear to be in any overt CHF at this time - Echocardiogram of January 13, 2020 showed concentric hypertrophy. LVEF 55-60%. LA mildly dilated. PASP approx 28 mmHg - Echocardiogram on February 03, 2021: LVEF 60-65%, mild to mod concentric LVH, mild MAC, mild MR, PASP 25-30 mmHg Probable R-sided pneumonia, as indicated on CXR of 02/01/21 and 02/02/21 Troponin level elevated - Probable Type 2 SC secondary to hypoxia - MPI of January 11, 2020 is indicative of anterolateral ischemia. Mild to mod imp airment of global LV systolic function. LVEF 40%. Mod cardiomegaly. Cardiac cath advised and scheduled, however she cancelled and did not f/u. H/o hypertension H/o hyperlipidemia H/o amenorrhea since 2015 due to polycystic ovarian H/o impaired fasting glucose Plan: * We recommend d/c diuretics iv fluids and consideration of blood transfusion (ICU svces are managing this) * Monitor labs * Possible transfer to [facility] - management per Med and ICU svces FRANCO BROTHERS MD FACP FAC CCDS Feb 07, 2021 16:31
--- NOTE | 2021-02-07 17:09 | Progress Note ---
Subjective Subjective Date Seen by Provider: Feb 07, 2021 Time Seen by Provider: 16:35 Still intubated. But able to nod head and squeeze hand to answer. She shakes her head 'no' to being asked if in pain. Patient agreeable to get a blood transfusion Review of Systems ROS Unable to Obtain: intubated Neurological: Other All Other Systems Reviewed All Other Systems Reviewed: Yes Objective Exam Vital Signs Vital Signs Date Time Temp Pulse Resp B/P (MAP) Pulse Ox O2 Delivery O2 Flow Rate FiO2 02/07/21 16:44 37.7 02/07/21 16:25 86 109/70 02/07/21 16:00 86 24 109/70 (83) 97 Mechanical Ventilator 30.00 02/07/21 16:00 97 Mechanical Ventilator 30 02/07/21 15:00 87 28 109/66 (80) 97 Mechanical Ventilator 30.00 02/07/21 14:30 91 44 95 30 02/07/21 14:00 95 27 105/63 (77) 98 Mechanical Ventilator 30.00 02/07/21 13:06 103 02/07/21 13:00 102 29 100/59 (73) 98 Mechanical Ventilator 30.00 02/07/21 12:00 97 Mechanical Ventilator 30 02/07/21 12:00 88 25 102/68 (79) 98 Mechanical Ventilator 30.00 02/07/21 11:43 37.2 02/07/21 11:15 95 101/60 02/07/21 11:00 92 29 102/63 (76) 98 Mechanical Ventilator 30.00 02/07/21 10:36 95 28 98 30 02/07/21 10:00 103 34 98/57 (71) 96 Mechanical Ventilator 30.00 02/07/21 09:00 80 28 98/60 (73) 99 Mechanical Ventilator 30.00 02/07/21 08:00 36.6 02/07/21 08:00 82 99/63 (75) 98 Mechanical Ventilator 30.00 02/07/21 08:00 97 Mechanical Ventilator 30 02/07/21 07:00 87 7 99/58 (72) 97 Mechanical Ventilator 30.00 02/07/21 06:33 91 02/07/21 06:00 102 60 96 02/07/21 06:00 96 97/60 (72) 94 Mechanical Ventilator 30.00 02/07/21 05:38 91/62 7/28/21 05:00 81 9 99/61 (74) 99 Mechanical Ventilator 30.00 02/07/21 04:41 37.1 02/07/21 04:00 91 22 97/59 (72) 98 Mechanical Ventilator 30.00 02/07/21 04:00 Mechanical Ventilator 30 02/07/21 03:00 92 26 97/56 (70) 97 Mechanical Ventilator 30.00 02/07/21 02:51 90 27 97 30 02/07/21 02:00 75 25 93/57 (69) 98 Mechanical Ventilator 30.00 02/07/21 01:00 75 10 92/58 (69) 97 Mechanical Ventilator 30.00 02/07/21 01:00 75 02/07/21 00:17 91/51 02/07/21 00:00 37.0 02/07/21 00:00 76 25 95/64 (74) 99 Mechanical Ventilator 30.00 02/07/21 00:00 Mechanical Ventilator 30 02/06/21 23:00 76 26 102/63 (76) 99 Mechanical Ventilator 30.00 02/06/21 22:00 77 28 102/62 (75) 100 Mechanical Ventilator 30.00 02/06/21 21:23 79 27 95 30 02/06/21 21:00 84 25 97/58 (71) 97 Mechanical Ventilator 30.00 02/06/21 20:47 36.4 02/06/21 20:26 Mechanical Ventilator 30 02/06/21 20:00 79 28 110/69 (83) 97 Mechanical Ventilator 30.00 02/06/21 19:10 78 28 102/65 (77) 95 Mechanical Ventilator 30.00 02/06/21 19:00 78 02/06/21 18:35 Mechanical Ventilator 30.00 02/06/21 18:25 77 22 100 50 02/06/21 18:00 78 28 108/62 (77) 100 Mechanical Ventilator 25.00 I & O 02/07/21 07:00 Intake Total 2450 ml Output Total 365 ml Balance 2085 ml General Appearance: No WD/WN, No Mild Distress; Obese, Other (intubated) Eyes: Bilateral Eye Normal Inspection, Bilateral Eye PERRL HEENT: Moist Mucous Membranes Neck: Full Range of Motion, Normal Inspection Respiratory: Chest Non Tender, Lungs Clear, Other (intubated) Cardiovascular: Regular Rate, Rhythm; No Tachycardia Gastrointestinal: Normal Bowel Sounds Extremity: Normal Capillary Refill, Pedal Edema (right leg), Other Neurologic/Psychiatric: Alert; No Oriented x3, No No Motor/Sensory Deficits, No Normal Mood/Affect Skin: Normal Color, Warm/Dry Results Lab Laboratory Tests 02/06/21 17:31: Glucometer 183H 02/06/21 20:04: Glucometer 204H 02/07/21 00:15: Glucometer 207H 02/07/21 04:30: White Blood Count 10.1, Red Blood Count 2.71L, Hemoglobin 7.0L, Hematocrit 25L, Mean Corpuscular Volume 90, Mean Corpuscular Hemoglobin 26, Mean Corpuscular Hemoglobin Concent 27L, Red Cell Distribution Width 29.8H, Platelet Count 290, Mean Platelet Volume 12.0, Immature Granulocyte % (Auto) 5, Neutrophils (%) (Auto) 82H, Lymphocytes (%) (Auto) 6L, Monocytes (%) (Auto) 7, Eosinophils (%) (Auto) 0, Basophils (%) (Auto) 0, Neutrophils # (Auto) 8.3H, Lymphocytes # (Auto) 0.6L, Monocytes # (Auto) 0.7, Eosinophils # (Auto) 0.0, Basophils # (Auto) 0.0, Immature Granulocyte # (Auto) 0.5H, Sodium Level 148H, Potassium Level 4.1, Chloride Level 119H, Carbon Dioxide Level 16L, Anion Gap 13, Blood Urea Nitrogen 59H, Creatinine 1.96H, Estimat Glomerular Filtration Rate 29, BUN/Creatinine Ratio 30, Glucose Level 175H, Calcium Level 7.5L, Phosphorus Level 4.5, Magnesium Level 2.2, Triglycerides Level 230H 02/07/21 04:45: Blood Gas Puncture Site RIGHT RADIAL, Blood Gas Patient Temperature 37.1, Arterial Blood pH 7.32*L, Arterial Blood Partial Pressure CO2 35, Arterial Blood Partial Pressure O2 77L, Arterial Blood HCO3 17*L, Arterial Blood Total CO2 18.5L, Arterial Blood Oxygen Saturation 97, Arterial Blood Base Excess -7.5L, Denilson Test YES-POS, Blood Gas Ventilator Setting YES, Blood Gas Inspired Oxygen 30% 02/07/21 11:41: Glucometer 148H Microbiology 02/05/21 Gram Stain - Final, Complete 02/05/21 Sputum Culture - Final, Complete Enterobacter cloacae complex YEAST Usual upper respiratory kapil 02/04/21 Urine Culture - Final, Complete YEAST 02/04/21 Blood Culture - Preliminary, Resulted No growth Assessment/Plan Assessment/Plan Assessment and Plan 02/01/21 Cr stable. Diuresing appreciate eICU, cardiology hgb stable- infusing Fe. -fluconazole added for yeast in sputum/urine. -finished cefepime 02/01/21 -stopped high dose steroids 02/01/21 (5 days) -sedation vacation- increased resp distress. 02/02/21- blood sugars still high- go up to sliding scale C- gave additional 10 units levemir once. updated that her kidneys were functioning well through this. -current issue is her respiratory status. continue as above 02/03/21- replacing potassium. Erhlichiosis pending. blood sugar improved. Updated father of patient at bedside. SBT a little better- SBT trial tomorrow. 02/04/21- continue with free water with OG tube. recheck Na level. Will see how SBT goes- possible extubation tomorrow depending on what decides- reasoning is Miryam would not want to be intubated. 02/05/21- spoke with eICU - spoke with patient's - they still do not want a trach. Awaking cultures from sputum. Continue with SBTs trials. Will keep discussing her care- ultimately though will go with 's decisions which do line up with what patient has said on last admission. Though her mental state does play a role- of being tired of dealing with her health [place]. She would not like to be dependent on a trach or ventilator. 02/06/21- on meropenem to cover pna. Did not tolerate SBT today. UOP decreased. Cr elevated. appreciate eICU consult. erhlichiosis IgM elevated, IgG negative. Patient indicated she did not want to give up on and go on comfort care. 02/07/21- hgb still 7. Will order 2 units of pRBC with lasix in between units. Monitor UOP. Kidneys are in trouble. Pt has been given a couple NS boluses. recheck bmp in AM. Dispo: Prognosis- guarded/poor Problems: (1) Acute respiratory failure with hypoxia Assessment & Plan: supportive care- RT, oxygen, diuresing- (2) Disability due to neurological disorder Assessment & Plan: still unclear on etiology- rechecking erlichiosis panel. Steroids did not help. - had signs of MS- oligoclonal bands- elevated on LP from last admission. Would be good to have an MRI of her head/neck. (3) Acute on chronic diastolic heart failure (4) Essential hypertension (5) Chronic kidney disease Qualifiers: (6) Obesity hypoventilation syndrome (7) Anemia of chronic disease (8) Morbid obesity (9) Type 2 diabetes mellitus with hyperglycemia (10) Positive serology for Erlichiosis Assessment & Plan: on doxycycline (11) Acute on chronic renal failure CHAZ ADLER MD Feb 07, 2021 17:09
[2021-02-07] MEDS ORDERED: FUROSEMIDE 40 MG/4 ML INJ (LASIX) IVP ONE (21:00)
[2021-02-07] MEDS: traZODone 100 MG (DESYREL) TAB PO SCH (21:08)
[2021-02-07] MEDS: ROSUVASTATIN 20 MG (CRESTOR) TABLET PO SCH (21:23)
[2021-02-07] MEDS: ALBUMIN 25% 25 GM/100 ML 50 ML IV SCH (21:23)
[2021-02-08] VITALS (33 sets, daily range): BP systolic 99–116; BP diastolic 61–80
[2021-02-08] MEDS ORDERED: NS (IVPB) 100 ML ONE (00:29)
[2021-02-08] MEDS: inSUlin ASPART (NovoLOG) 1 UNIT/0.01 ML (CHARGE PER UNIT) SQ SCH ×5 (00:43→23:36)
[2021-02-08] MEDS: RT-ALBUTEROL/IPRATROPIUM 3 ML (DUONEB) VIAL INH SCH ×3 (01:48→21:33)
[2021-02-08] MEDS: fentaNYL DRIP PRE-MIX 250 ML IV SCH ×5 (02:28→23:24)
[2021-02-08] MEDS: DexMEDEtomidine 250 ML DRIP 250 ML IV SCH ×5 (03:27→23:24)
[2021-02-08] MEDS: MEROPENEM 500 MG/SWFI 10 ML IV PUSH IV SCH ×8 (03:27→23:23)
[2021-02-08 04:44] LABS: BASOPHILS % (AUTO) 0 % (0-10); EOSINOPHILS # (AUTO) 0.1 10^3/uL (0.0-0.3); EOSINOPHILS % (AUTO) 1 % (0-10); HEMATOCRIT 28 % (35-52); HEMOGLOBIN 7.9 g/dL (11.5-16.0); LYMPHOCYTES # (AUTO) 0.7 10^3/uL (1.0-4.0); LYMPHOCYTES % (AUTO) 8 % (12-44); MEAN CORPUSCULAR HEMOGLOBIN 26 pg (25-34); MEAN CORPUSCULAR HGB CONC 29 g/dL (32-36); MEAN CORPUSCULAR VOLUME 90 fL (80-99); MEAN PLATELET VOLUME 11.2 fL (9.0-12.2); MONOCYTES # (AUTO) 0.6 10^3/uL (0.0-1.0); MONOCYTES % (AUTO) 7 % (0-12); NEUTROPHILS # (AUTO) 6.4 10^3/uL (1.8-7.8); NEUTROPHILS % (AUTO) 77 % (42-75); PLATELET COUNT 248 10^3/uL (130-400); WHITE BLOOD COUNT 8.3 10^3/uL (4.3-11.0)
[2021-02-08 04:51] LABS: ABG BASE EXCESS -9.1 MMOL/L (-2.5-2.5); ABG OXYGEN SATURATION 97 % (94-100); ABG PCO2 33 MMHG (35-45); ABG PO2 74 MMHG (79-93); ABG TCO2 17.1 MMOL/L (21.0-31.0)
[2021-02-08 04:52] LABS: POTASSIUM 4.6 MMOL/L (3.6-5.0)
[2021-02-08 04:52] LABS: ABG PH 7.31 (7.37-7.43); ALLENS TEST YES-POS; PATIENT TEMP 36.6; VENTILATOR YES
[2021-02-08 04:53] LABS: CALCIUM 7.8 MG/DL (8.5-10.1)
[2021-02-08 04:57] LABS: PHOSPHORUS 5.2 MG/DL (2.3-4.7)
[2021-02-08 04:58] LABS: CREATININE SERUM 2.2 MG/DL (0.60-1.30)
[2021-02-08 05:00] LABS: MAGNESIUM 2.2 MG/DL (1.6-2.4)
[2021-02-08] MEDS: KCL 20 MEQ TAB (K-DUR) PO SCH (05:06)
[2021-02-08] MEDS: MAGNESIUM 1 GM/100 ML IVPB 100 ML IV SCH (05:06)
[2021-02-08] MEDS: POTASSIUM CL 10MEQ/50ML IVPB 50 ML IV SCH (05:06)
[2021-02-08] MEDS: ALBUMIN 25% 25 GM/100 ML 50 ML IV SCH ×2 (05:38→10:21)
[2021-02-08] MEDS: DOXYCYCLINE 100 MG (VIBRAMYCIN) TABLET PO SCH (05:39)
--- NOTE | 2021-02-08 06:57 | Occ Therapy Progress Note ---
Therapy Progress Note Pt is currently intubated. OT will continue to monitor pt and initiate therapy when pt is more medically stable and able to actively participate in skilled therapy. KENJI DELANEY Feb 08, 2021 06:57
[2021-02-08] MEDS: ENOXAPARIN 40 MG/0.4 ML (LOVENOX) SYR SC SCH (07:57)
[2021-02-08] MEDS: PANTOPRAZOLE 40 MG (PROTONIX) VIAL IV SCH ×2 (07:57→20:46)
[2021-02-08] MEDS: fentaNYL PATCH 25 MCG (DURAGESIC) TD SCH (07:57)
[2021-02-08] MEDS: ASPIRIN E.C. 81 MG (ECOTRIN) TAB PO SCH (07:57)
--- NOTE | 2021-02-08 07:57 | Physical Therapy Progress Note ---
Therapy Progress Note Pt is currently intubated. PT will continue to monitor pt and initiate therapy when pt is more medically stable and able to actively participate in skilled therapy. DIPIKA ZHANG PT Feb 08, 2021 07:57
[2021-02-08] MEDS: FENTANYL PATCH REMOVAL TP SCH (07:58)
--- NOTE | 2021-02-08 08:27 | Tele-ICU Progress Note ---
Subjective Date Seen by a Provider: Feb 08, 2021 Time Seen by a Provider: 08:27 Sepsis Event Evaluation Height, Weight, BMI Height: 5'2.00" Weight: 280lbs. 0.0oz. [id number]; 52.92 BMI Method:Stated Exam Exam Patient acknowledged, consented, and participated in this virtual visit which was conducted using real time audio/video Vital Signs Date Time Temp Pulse Resp B/P (MAP) Pulse Ox O2 Delivery O2 Flow Rate FiO2 02/08/21 08:03 90 29 98 30 02/08/21 08:00 100 Mechanical Ventilator 30 02/08/21 08:00 91 26 112/72 (85) 99 Mechanical Ventilator 30.00 02/08/21 07:52 36.7 02/08/21 07:00 98 02/08/21 07:00 97 24 108/70 (83) 96 Mechanical Ventilator 30.00 02/08/21 06:00 98 25 102/61 (75) 95 Mechanical Ventilator 30.00 02/08/21 05:00 93 25 105/65 (78) 96 Mechanical Ventilator 30.00 02/08/21 04:39 36.6 02/08/21 04:00 Mechanical Ventilator 30 02/08/21 04:00 87 25 112/72 (85) 98 Mechanical Ventilator 30.00 02/08/21 03:27 88 115/73 02/08/21 03:00 86 23 115/73 (87) 99 Mechanical Ventilator 30.00 02/08/21 02:24 36.5 86 24 111/73 100 Mechanical Ventilator 30 02/08/21 02:00 85 23 111/73 (86) 100 Mechanical Ventilator 30.00 02/08/21 01:48 85 27 100 30 02/08/21 01:00 86 02/08/21 01:00 86 25 116/72 (87) 92 Mechanical Ventilator 30.00 02/08/21 00:47 36.6 87 33 114/75 96 Mechanical Ventilator 30 02/08/21 00:32 36.0 88 26 113/74 97 Mechanical Ventilator 30 02/08/21 00:31 36.5 02/08/21 00:00 Mechanical Ventilator 30 02/08/21 00:00 89 28 116/74 (88) 97 Mechanical Ventilator 30.00 02/07/21 23:00 104 26 116/70 (85) 96 Mechanical Ventilator 30.00 02/07/21 22:14 101 42 94 30 02/07/21 22:00 93 29 105/62 (76) 97 Mechanical Ventilator 30.00 02/07/21 21:53 94 116/70 02/07/21 21:04 36.8 90 27 112/69 98 Mechanical Ventilator 30 02/07/21 21:00 90 26 115/71 (86) 97 Mechanical Ventilator 30.00 02/07/21 20:00 88 25 110/69 (83) 98 Mechanical Ventilator 30.00 02/07/21 20:00 Mechanical Ventilator 30 02/07/21 19:59 35.6 02/07/21 19:20 87 28 99 30 02/07/21 19:12 37.2 87 29 104/66 100 Mechanical Ventilator 30 02/07/21 19:00 87 02/07/21 19:00 87 25 107/67 (80) 98 Mechanical Ventilator 30.00 02/07/21 18:54 36.8 87 24 105/65 99 Mechanical Ventilator 30 02/07/21 17:00 87 30 109/69 (82) 98 Mechanical Ventilator 30.00 02/07/21 16:44 37.7 02/07/21 16:25 86 109/70 02/07/21 16:00 86 24 109/70 (83) 97 Mechanical Ventilator 30.00 02/07/21 16:00 97 Mechanical Ventilator 30 02/07/21 15:00 87 28 109/66 (80) 97 Mechanical Ventilator 30.00 02/07/21 14:30 91 44 95 30 02/07/21 14:00 95 27 105/63 (77) 98 Mechanical Ventilator 30.00 02/07/21 13:06 103 02/07/21 13:00 102 29 100/59 (73) 98 Mechanical Ventilator 30.00 02/07/21 12:00 97 Mechanical Ventilator 30 02/07/21 12:00 88 25 102/68 (79) 98 Mechanical Ventilator 30.00 02/07/21 11:43 37.2 02/07/21 11:15 95 101/60 02/07/21 11:00 92 29 102/63 (76) 98 Mechanical Ventilator 30.00 02/07/21 10:36 95 28 98 30 02/07/21 10:00 103 34 98/57 (71) 96 Mechanical Ventilator 30.00 02/07/21 09:00 80 28 98/60 (73) 99 Mechanical Ventilator 30.00 I & O 02/08/21 07:00 Intake Total 4980 ml Output Total 340 ml Balance 4640 ml Height & Weight Height: 5'2.00" Weight: 280lbs. 0.0oz. [id number]; 52.92 BMI Method:Stated General Appearance: No WD/WN, No Mild Distress; Obese, Other (intubated) HEENT: Moist Mucous Membranes Neck: Full Range of Motion, Normal Inspection Respiratory: Chest Non Tender, Lungs Clear, Other (intubated) Cardiovascular: Regular Rate, Rhythm; No Tachycardia Capillary Refill: Less Than 3 Seconds Gastrointestinal: normal bowel sounds, non tender, soft Extremity: Normal Capillary Refill, Pedal Edema (right leg), Other Neurologic/Psychiatric: Alert; No Oriented x3, No No Motor/Sensory Deficits, No Normal Mood/Affect Skin: Normal Color, Warm/Dry Results Lab Laboratory Tests 02/07/21 04:30 02/08/21 04:30 Assessment/Plan Assessment/Plan (Tele-ICU Physician , Progress Note ) Available chart/ vitals / labs / Images reviewed Video assessment done using teleICU camera, rest of exam as per RN Discussed with RN Events overnight : LOW GRADE FEVER RESOLVED - AFEBRILE TODAY hemodynamically stable, no pressors, I/O - POSITIVE 4 L Drips , precedex 1.5 prn fentanyl 150 ativan prn not used As per RN exam : lungs clear , Consultants: cards VENT SETTINGS. AC rr 20 (sp 25) TV 420 ( 8 cc/kg) +8 30 % ABG reviewed ROS -1 - 0 SBT 02/04 - 10 mins - ? RR SBT 02/07 - at night - reportedly did well? settings A/P Acute resp failure ( on chronic ) hypoxic, hypercarbic - intubated 01/29 -01/30 - cxr with elevted right diphragm- stable - HOLD DIURESIS 02/06 and given albulmin for rising CT 02/07with rising CR - TRANSFUSED ALBUMIN AND BLOOD , ALONG WITH SOME NS - will do SBT everyday for exresise -+ ENTEROBACTER in sputunm 02/05 --> ON ABX - she might benefit from trach as terapeutic approach - VENT DAY #10 - consider trach next week ? JAMES - rising cr 02/07 - probably combination of diuresis and new infection - given volume expansion with albumin and pRBC ( 2 Units 02/07-02/08 - will cont gentle volume with bicarb HCAP - vancomycin and cefepime FINISHED COURSE ( recent tx for sepsis - cellulitis (vancomycin 01/27 , finished cefepime 02/01 YEAST IN URINE AND SPUTUM - IN FACE OF STEROIDS - added FLUCONAZOLE 02/01 02/05 - ENTEROBACTER sputum - 02/06 - SENS TO MERREM - also has line 01/29 - reculture 02/07 AECOPD - OFF steroids Suspected MS - on steroids 500 MG BID - FINISHED 5 days course Acute on chronic diastolic heart failure -ECHO 01/08 - 55% , RVSP 20 mm type II non-STEMI - lovenox proph dose 01/29 Anemia - - monitor - for now , w/up as per PCP (received 1 U PCBC 01/28 - resumed hep sq proph - Hb trending down , no bleeding , on Fe supplements -s/p transfusion 2 Units 02/07-02/08 for vilume expansion ( no active bleeding , HB 7.0) DMII - as per PCP - no DKA , but significnt hyperglycemia - OFF STEROID NOW - FOLLOW CLOSELY , BETTER CONTROL Chronic hypoxia - VQ neg and LE US neg 01/09/21 an risk for HAILE /OHV Hypernatremis with diuresis - increase H20 on ng flushes , on d5w 02/08 UDS positive for opioids and amphetamine last admission -on phentermine for weight loss -on hydrocodone for foot and leg pain rib fx. seen on cxr. - no c/o or history Lines : R IJ 01/29 , (Central Line Necessity Reviewed) Hernandez: + OG: + Nutrition: TOLERATES WELL Analgesia: fentanyl prn Anxiety/ delirium VTE Prophylaxis: hold lovenox 01/29 - resume proph 01/30 Stress Ulcer Prophylaxis: PPI Glycemic Control: poor Plans in collaboration with bedside consultants and IM MDs. Discussed with RN to reach out if any questions or concerns as per RN- Dr Tolentino had discussion with sanjay in room 02/06 , and patient was awake enough to express her williness to cont with vent and current care A total of 40 minutes of critical care time was devoted to this patient today, required to treat and/or prevent further deterioration of critical care condition ( as above ) . NOÉ CAO MD Feb 08, 2021 08:27
--- NOTE | 2021-02-08 08:46 | Progress Note - Cardiology ---
Cardiology SOAP Progress Note Subjective: Remains intubated and sedated Objective: I&O/Vital Signs 02/07/21 02/07/21 02/07/21 02/07/21 21:53 22:00 22:14 23:00 Pulse 94 93 101 104 Resp 29 42 26 B/P (MAP) 116/70 105/62 (76) 116/70 (85) Pulse Ox 97 94 96 O2 Delivery Mechanical Ventilator Mechanical Ventilator O2 Flow Rate 30.00 30.00 FiO2 30 02/08/21 02/08/21 02/08/21 02/08/21 00:00 00:00 00:31 00:32 Temp 36.5 36.0 Pulse 89 88 Resp 28 26 B/P (MAP) 116/74 (88) 113/74 Pulse Ox 97 97 O2 Delivery Mechanical Ventilator Mechanical Ventilator Mechanical Ventilator O2 Flow Rate 30.00 FiO2 30 30 02/08/21 02/08/21 02/08/21 02/08/21 00:47 01:00 01:00 01:48 Temp 36.6 Pulse 87 86 86 85 Resp 33 25 27 B/P (MAP) 114/75 116/72 (87) Pulse Ox 96 92 100 O2 Delivery Mechanical Ventilator Mechanical Ventilator O2 Flow Rate 30.00 FiO2 30 30 02/08/21 02/08/21 02/08/21 02/08/21 02:00 02:24 03:00 03:27 Temp 36.5 Pulse 85 86 86 88 Resp 23 24 23 B/P (MAP) 111/73 (86) 111/73 115/73 (87) 115/73 Pulse Ox 100 100 99 O2 Delivery Mechanical Ventilator Mechanical Ventilator Mechanical Ventilator O2 Flow Rate 30.00 30.00 FiO2 30 02/08/21 02/08/21 02/08/21 02/08/21 04:00 04:00 04:39 05:00 Temp 36.6 Pulse 87 93 Resp 25 25 B/P (MAP) 112/72 (85) 105/65 (78) Pulse Ox 98 96 O2 Delivery Mechanical Ventilator Mechanical Ventilator Mechanical Ventilator O2 Flow Rate 30.00 30.00 FiO2 30 02/08/21 02/08/21 02/08/21 02/08/21 06:00 07:00 07:00 07:52 Temp 36.7 Pulse 98 97 98 Resp 25 24 B/P (MAP) 102/61 (75) 108/70 (83) Pulse Ox 95 96 O2 Delivery Mechanical Ventilator Mechanical Ventilator O2 Flow Rate 30.00 30.00 02/08/21 02/08/21 02/08/21 08:00 08:00 08:03 Pulse 91 90 Resp 26 29 B/P (MAP) 112/72 (85) Pulse Ox 99 100 98 O2 Delivery Mechanical Ventilator Mechanical Ventilator O2 Flow Rate 30.00 FiO2 30 30 02/08/21 00:00 Intake Total 2090 ml Output Total 115 ml Balance 1975 ml Weight (Pounds): 280 Weight (Ounces): 0.0 Weight (Calculated Kilograms): 127.956629 Constitutional: other (intubated, sedated, on mech vent) Respiratory: No accessory muscle use; other (fair bilat air entry, diminished at the bases) Cardiovascular: regular rate-rhythm, S1 and S2, systolic murmur (soft MAIRA at card base) Gastrointestional: No tender; soft; No guarding, No rebound; audible bowel sounds Extremities: swelling (mod, non-pitting, bilateral leg edema); No clubbing, No cyanosis Neurologic/Psychiatric: other (intubated, sedated, on mech vent) Skin: warm/dry Results/Procedures: Labs Laboratory Tests 02/07/21 11:41: Glucometer 148H 02/07/21 17:52: Glucometer 145H 02/08/21 00:39: Glucometer 187H 02/08/21 04:30: White Blood Count 8.3, Red Blood Count 3.07L, Hemoglobin 7.9L, Hematocrit 28L, Mean Corpuscular Volume 90, Mean Corpuscular Hemoglobin 26, Mean Corpuscular Hemoglobin Concent 29L, Red Cell Distribution Width 26.6H, Platelet Count 248, Mean Platelet Volume 11.2, Immature Granulocyte % (Auto) 7, Neutrophils (%) (Auto) 77H, Lymphocytes (%) (Auto) 8L, Monocytes (%) (Auto) 7, Eosinophils (%) (Auto) 1, Basophils (%) (Auto) 0, Neutrophils # (Auto) 6.4, Lymphocytes # (Auto) 0.7L, Monocytes # (Auto) 0.6, Eosinophils # (Auto) 0.1, Basophils # (Auto) 0.0, Immature Granulocyte # (Auto) 0.6H, Sodium Level 148H, Potassium Level 4.6, Chloride Level 119H, Carbon Dioxide Level 15L, Anion Gap 14, Blood Urea Nitrogen 60H, Creatinine 2.20H, Estimat Glomerular Filtration Rate 25, BUN/Creatinine Ratio 27, Glucose Level 149H, Calcium Level 7.8L, Phosphorus Level 5.2H, Magnesium Level 2.2 02/08/21 04:44: Blood Gas Puncture Site R RADIAL, Blood Gas Patient Temperature 36.6, Arterial Blood pH 7.31*L, Arterial Blood Partial Pressure CO2 33L, Arterial Blood Partial Pressure O2 74L, Arterial Blood HCO3 16*L, Arterial Blood Total CO2 17.1L, Arterial Blood Oxygen Saturation 97, Arterial Blood Base Excess -9.1L, Denilson Te st YES-POS, Blood Gas Ventilator Setting YES, Blood Gas Inspired Oxygen NA Microbiology 02/05/21 Gram Stain - Final, Complete 02/05/21 Sputum Culture - Final, Complete Enterobacter cloacae complex YEAST Usual upper respiratory kapil 02/04/21 Urine Culture - Final, Complete YEAST 02/04/21 Blood Culture - Preliminary, Resulted No growth A/P: Assessment: JAMES-2, likely due to intravascular volume depletion due to diuretics, ICU and Hospitalist svces managing Marked anemia of undetermined etiology, ICU and Hospitalist svces managing Acute, hypoxic respiratory failure, likely multifactorial (see below) Obesity with probable obesity-hypoventilation Ac on chornic HFpEF, does not appear to be in any overt CHF at this time - Echocardiogram of January 13, 2020 showed concentric hypertrophy. LVEF 55-60%. LA mildly dilated. PASP approx 28 mmHg - Echocardiogram on February 03, 2021: LVEF 60-65%, mild to mod concentric LVH, mild MAC, mild MR, PASP 25-30 mmHg Probable R-sided pneumonia, as indicated on CXR of 02/01/21 and 02/02/21 Troponin level elevated - Probable Type 2 IA secondary to hypoxia - MPI of January 11, 2020 is indicative of anterolateral ischemia. Mild to mod impairment of global LV systolic function. LVEF 40%. Mod cardiomegaly. Cardiac cath advised and scheduled, however she cancelled and did not f/u. H/o hypertension H/o hyperlipidemia H/o amenorrhea since 2015 due to polycystic ovarian H/o impaired fasting glucose Plan: * We recommend continued holding of diuretics and administration of iv fluids (ICU svces are managing this) * Received transfusion over night - H/H improved * Renal function continues to worsen - management per ICU services * Monitor labs * [facility] denied transfer NATE OVALLE [facility] Feb 08, 2021 08:46
[2021-02-08] MEDS ORDERED: FLUCONAZOLE 200 MG/100 ML 100 ML IV ONE (09:23)
[2021-02-08] MEDS: DEXTROSE IV SCH ×4 (09:28→20:45)
[2021-02-08] MEDS: SODIUM BICARBONATE IV SCH ×4 (09:28→20:45)
[2021-02-08] MEDS: FLUCONAZOLE 100 MG/50 ML 50 ML IV SCH (09:32)
--- NOTE | 2021-02-08 10:10 | Cardiology Progress Note ---
Progress Note-Cardiology Events since last exam Date Seen by Provider: Feb 08, 2021 Time Seen by Provider: 10:04 Events since last exam We are seeing her due to possible NSTEMI and heart failure. She remains int ubated but is awake and following commands. Despite this, I could not obtain any history from the patient but she was tracking my movements in the room. I did speak with her nurse from today. The plan is for possible tracheostomy next week. Vitals Last set of Vitals Signs Vital Signs 02/08/21 02/08/21 02/08/21 02/08/21 07:52 08:00 09:28 09:33 Temp 36.7 Pulse 88 Resp 33 B/P (MAP) 105/70 Pulse Ox 95 O2 Delivery Mechanical Ventilator O2 Flow Rate 30.00 FiO2 30 Labs Labs Laboratory Tests 02/08/21 04:30 Exam Vital Signs Vital Signs Date Time Temp Pulse Resp B/P (MAP) Pulse Ox O2 Delivery O2 Flow Rate FiO2 02/08/21 09:33 88 33 95 30 02/08/21 09:28 105/70 02/08/21 08:00 Mechanical Ventilator 02/08/21 08:00 30.00 02/08/21 07:52 36.7 Physical Exam General: Intubated but awake and tracking movements. Well nourished and appears stated age. She is morbidly obese. Eye: Conjunctivae are clear. There are no xanthelasma. HENT: Normocephalic. Atraumatic. Carotid pulsations 2/2 without bruits. Neck: Jugular venous pressure does not appear elevated. No thyromegaly appreciated. Respiratory: Symmetrical expansion bilaterally. Coarse breath sounds to the ventilator. Cardiovascular: Normal rate. Regular rhythm. No murmur. No gallop. Point of maximal impulse is not appear displaced. Good pulses equal in all extremities. No edema. Gastrointestinal: Soft. Normal bowel sounds. Skin: Skin turgor is normal. There is no pallor. Musculoskeletal: No obvious deformities. Neurologic: Intubated and awake. Psychiatric: Not obtainable due to clinical status. Labs Laboratory Tests Test 02/07/21 11:41 02/07/21 17:52 02/08/21 00:39 02/08/21 04:30 Range/Units Glucometer 148 H 145 H 187 H 70-110 MG/DL White Blood Count 8.3 4.3-11.0 10^3/uL Red Blood Count 3.07 L 3.80-5.11 10^6/uL Hemoglobin 7.9 L 11.5-16.0 g/dL Hematocrit 28 L 35-52 % Mean Corpuscular Volume 90 80-99 fL Mean Corpuscular Hemoglobin 26 25-34 pg Mean Corpuscular Hemoglobin Concent 29 L 32-36 g/dL Red Cell Distribution Width 26.6 H 10.0-14.5 % Platelet Count 248 130-400 10^3/uL Mean Platelet Volume 11.2 9.0-12.2 fL Immature Granulocyte % (Auto) 7 % Neutrophils (%) (Auto) 77 H 42-75 % Lymphocytes (%) (Auto) 8 L 12-44 % Monocytes (%) (Auto) 7 0-12 % Eosinophils (%) (Auto) 1 0-10 % Basophils (%) (Auto) 0 0-10 % Neutrophils # (Auto) 6.4 1.8-7.8 10^3/uL Lymphocytes # (Auto) 0.7 L 1.0-4.0 10^3/uL Monocytes # (Auto) 0.6 0.0-1.0 10^3/uL Eosinophils # (Auto) 0.1 0.0-0.3 10^3/uL Basophils # (Auto) 0.0 0.0-0.1 10^3/uL Immature Granulocyte # (Auto) 0.6 H 0.0-0.1 10^3/uL Sodium Level 148 H 135-145 MMOL/L Potassium Level 4.6 3.6-5.0 MMOL/L Chloride Level 119 H 98-107 MMOL/L Carbon Dioxide Level 15 L 21-32 MMOL/L Anion Gap 14 5-14 MMOL/L Blood Urea Nitrogen 60 H 7-18 MG/DL Creatinine 2.20 H 0.60-1.30 MG/DL Estimat Glomerular Filtration Rate 25 BUN/Creatinine Ratio 27 Glucose Level 149 H 70-105 MG/DL Calcium Level 7.8 L 8.5-10.1 MG/DL Phosphorus Level 5.2 H 2.3-4.7 MG/DL Magnesium Level 2.2 1.6-2.4 MG/DL Test 02/08/21 04:44 Range/Units Blood Gas Puncture Site R RADIAL Blood Gas Patient Temperature 36.6 Arterial Blood pH 7.31 *L 7.37-7.43 Arterial Blood Partial Pressure CO2 33 L 35-45 MMHG Arterial Blood Partial Pressure O2 74 L 79-93 MMHG Arterial Blood HCO3 16 *L 23-27 MMOL/L Arterial Blood Total CO2 17.1 L 21.0-31.0 MMOL/L Arterial Blood Oxygen Saturation 97 94-100 % Arterial Blood Base Excess -9.1 L -2.5-2.5 MMOL/L Denilson Test YES-POS Blood Gas Ventilator Setting YES Blood Gas Inspired Oxygen NA Diagnosis/Problems Diagnosis/Problems (1) Troponin level elevated Assessment & Plan: This is probably a type II non-ST elevation myocardial infarction due to supply/demand mismatch from her acute respiratory decompensation. However, she was also having some ill described chest discomfort. Her chest discomfort had resolved before her respiratory status declined.Continue aspirin, beta-hiram, and statin medication. She had an echocardiogram on February 03 and this showed a normal ejection fraction. For the time being, we will continue with medical management. We will need to wait until her respiratory status improves before we can consider additional cardiac evaluation. (2) Acute on chronic diastolic heart failure Assessment & Plan: As noted by my partner on 02/07, she may actually be somewhat volume depleted. The hospitalist and eICU are managing the fluids. She has not had a chest x-ray in a couple of days. I have ordered a follow-up chest x-ray for today. (3) Acute on chronic respiratory failure with hypoxia and hypercapnia Assessment & Plan: She has now had acute respiratory decline and was intubated. I suspect this is multifactorial in etiology. Her status is now critical. eICU has assisting with management. There has been little change in the appearance of her chest x-ray over the last 24 hours. (4) Essential hypertension Assessment & Plan: Blood pressures have stabilized on amlodipine and carvedilol. (5) Mixed hyperlipidemia Assessment & Plan: Continue rosuvastatin. This is a new medication for the patient and will need to be followed after discharge. (6) Morbid obesity Assessment & Plan: Her obesity is most likely leading to the majority of her medical conditions. Once she gets through this acute illness, I would consider referral to a bariatric surgeon. ENOC LAWSON JR, MD Feb 08, 2021 10:10
[2021-02-08] MEDS: fentaNYL INJ 100 MCG/2 ML AMP IVP PRN (10:11)
[2021-02-08] MEDS ORDERED: LACTATED RINGERS 500 ML IV SCH (10:15)
[2021-02-08] MEDS: LORazepam INJ 2 MG/ML (ATIVAN) VIAL IVP PRN (10:18)
--- NOTE | 2021-02-08 10:59 | Diagnostic Imaging Report ---
Indication: Respiratory failure. TIME OF EXAM: 10:41 AM Correlation is made with prior chest from 02/05/2021. ET tube has tip above the yamileth. NG tube passes below the diaphragm. Right IJ line has tip overlying the SVC. Heart remains enlarged. There continues to be some infiltrate in the right perihilar region. Remainder lung faulkner appear to be fairly clear on today's study. There is no effusion or pneumothorax. IMPRESSION: Mild residual right perihilar infiltrate or atelectasis. Dictated by: Dictated on workstation # [id number]
--- NOTE | 2021-02-08 13:01 | Progress Note ---
Subjective Subjective Date Seen by Provider: Feb 08, 2021 Time Seen by Provider: 12:56 Still intubated. Did not wake when I spoke to her. Father at bedtime and he was tearful at times. Answered his questions. Review of Systems ROS Unable to Obtain: intubated Neurological: Other All Other Systems Reviewed All Other Systems Reviewed: Yes Objective Exam Vital Signs Vital Signs Date Time Temp Pulse Resp B/P (MAP) Pulse Ox O2 Delivery O2 Flow Rate FiO2 02/08/21 11:49 100 Mechanical Ventilator 30 02/08/21 11:45 37.3 02/08/21 11:00 82 27 107/77 (87) 98 Mechanical Ventilator 30.00 02/08/21 10:00 86 15 105/75 (85) 98 Mechanical Ventilator 30.00 02/08/21 09:33 88 33 95 30 02/08/21 09:28 91 105/70 02/08/21 09:00 89 27 106/72 (83) 98 Mechanical Ventilator 30.00 02/08/21 08:03 90 29 98 30 02/08/21 08:00 100 Mechanical Ventilator 30 02/08/21 08:00 91 26 112/72 (85) 99 Mechanical Ventilator 30.00 02/08/21 07:52 36.7 02/08/21 07:00 98 02/08/21 07:00 97 24 108/70 (83) 96 Mechanical Ventilator 30.00 02/08/21 06:00 98 25 102/61 (75) 95 Mechanical Ventilator 30.00 02/08/21 05:00 93 25 105/65 (78) 96 Mechanical Ventilator 30.00 02/08/21 04:39 36.6 02/08/21 04:00 Mechanical Ventilator 30 02/08/21 04:00 87 25 112/72 (85) 98 Mechanical Ventilator 30.00 02/08/21 03:27 88 115/73 02/08/21 03:00 86 23 115/73 (87) 99 Mechanical Ventilator 30.00 02/08/21 02:24 36.5 86 24 111/73 100 Mechanical Ventilator 30 02/08/21 02:00 85 23 111/73 (86) 100 Mechanical Ventilator 30.00 02/08/21 01:48 85 27 100 30 02/08/21 01:00 86 02/08/21 01:00 86 25 116/72 (87) 92 Mechanical Ventilator 30.00 02/08/21 00:47 36.6 87 33 114/75 96 Mechanical Ventilator 30 02/08/21 00:32 36.0 88 26 113/74 97 Mechanical Ventilator 30 02/08/21 00:31 36.5 02/08/21 00:00 Mechanical Ventilator 30 02/08/21 00:00 89 28 116/74 (88) 97 Mechanical Ventilator 30.00 02/07/21 23:00 104 26 116/70 (85) 96 Mechanical Ventilator 30.00 02/07/21 22:14 101 42 94 30 02/07/21 22:00 93 29 105/62 (76) 97 Mechanical Ventilator 30.00 02/07/21 21:53 94 116/70 02/07/21 21:04 36.8 90 27 112/69 98 Mechanical Ventilator 30 02/07/21 21:00 90 26 115/71 (86) 97 Mechanical Ventilator 30.00 02/07/21 20:00 88 25 110/69 (83) 98 Mechanical Ventilator 30.00 02/07/21 20:00 Mechanical Ventilator 30 02/07/21 19:59 35.6 02/07/21 19:20 87 28 99 30 02/07/21 19:12 37.2 87 29 104/66 100 Mechanical Ventilator 30 02/07/21 19:00 87 02/07/21 19:00 87 25 107/67 (80) 98 Mechanical Ventilator 30.00 02/07/21 18:54 36.8 87 24 105/65 99 Mechanical Ventilator 30 02/07/21 17:00 87 30 109/69 (82) 98 Mechanical Ventilator 30.00 02/07/21 16:44 37.7 02/07/21 16:25 86 109/70 02/07/21 16:00 86 24 109/70 (83) 97 Mechanical Ventilator 30.00 02/07/21 16:00 97 Mechanical Ventilator 30 02/07/21 15:00 87 28 109/66 (80) 97 Mechanical Ventilator 30.00 02/07/21 14:30 91 44 95 30 02/07/21 14:00 95 27 105/63 (77) 98 Mechanical Ventilator 30.00 02/07/21 13:06 103 02/07/21 13:00 102 29 100/59 (73) 98 Mechanical Ventilator 30.00 I & O 02/08/21 07:00 Intake Total 5030 ml Output Total 340 ml Balance 4690 ml General Appearance: No WD/WN, No Mild Distress; Obese, Other (intubated) Eyes: Bilateral Eye Normal Inspection, Bilateral Eye PERRL HEENT: Moist Mucous Membranes Neck: Full Range of Motion, Normal Inspection Respiratory: Chest Non Tender, Lungs Clear, Other (intubated) Cardiovascular: Regular Rate, Rhythm; No Tachycardia Gastrointestinal: Normal Bowel Sounds Extremity: Normal Capillary Refill, Pedal Edema (right leg), Other Neurologic/Psychiatric: Alert; No Oriented x3, No No Motor/Sensory Deficits, No Normal Mood/Affect Skin: Normal Color, Warm/Dry Results Lab Laboratory Tests 02/07/21 17:52: Glucometer 145H 02/08/21 00:39: Glucometer 187H 02/08/21 04:30: White Blood Count 8.3, Red Blood Count 3.07L, Hemoglobin 7.9L, Hematocrit 28L, Mean Corpuscular Volume 90, Mean Corpuscular Hemoglobin 26, Mean Corpuscular Hemoglobin Concent 29L, Red Cell Distribution Width 26.6H, Platelet Count 248, Mean Platelet Volume 11.2, Immature Granulocyte % (Auto) 7, Neutrophils (%) (Auto) 77H, Lymphocytes (%) (Auto) 8L, Monocytes (%) (Auto) 7, Eosinophils (%) (Auto) 1, Basophils (%) (Auto) 0, Neutrophils # (Auto) 6.4, Lymphocytes # (Auto) 0.7L, Monocytes # (Auto) 0.6, Eosinophils # (Auto) 0.1, Basophils # (Auto) 0.0, Immature Granulocyte # (Auto) 0.6H, Sodium Level 148H, Potassium Level 4.6, Chloride Level 119H, Carbon Dioxide Level 15L, Anion Gap 14, Blood Urea Nitrogen 60H, Creatinine 2.20H, Estimat Glomerular Filtration Rate 25, BUN/Creatinine Ratio 27, Glucose Level 149H, Calcium Level 7.8L, Phosphorus Level 5.2H, Magnesium Level 2.2 02/08/21 04:44: Blood Gas Puncture Site R RADIAL, Blood Gas Patient Temperature 36.6, Arterial Blood pH 7.31*L, Arterial Blood Partial Pressure CO2 33L, Arterial Blood Partial Pressure O2 74L, Arterial Blood HCO3 16*L, Arterial Blood Total CO2 17.1L, Arterial Blood Oxygen Saturation 97, Arterial Blood Base Excess -9.1L, Denilson Test YES-POS, Blood Gas Ventilator Setting YES, Blood Gas Inspired Oxygen NA 02/08/21 11:42: Glucometer 125H Microbiology 02/05/21 Gram Stain - Final, Complete 02/05/21 Sputum Culture - Final, Complete Enterobacter cloacae complex YEAST Usual upper respiratory kapil 02/04/21 Urine Culture - Final, Complete YEAST 02/04/21 Blood Culture - Preliminary, Resulted No growth Assessment/Plan Assessment/Plan Assessment and Plan 02/01/21 Cr stable. Diuresing appreciate eICU, cardiology hgb stable- infusing Fe. -fluconazole added for yeast in sputum/urine. -finished cefepime 02/01/21 -stopped high dose steroids 02/01/21 (5 days) -sedation vacation- increased resp distress. 02/02/21- blood sugars still high- go up to sliding scale C- gave additional 10 units levemir once. updated that her kidneys were functioning well through this. -current issue is her respiratory status. continue as above 02/03/21- replacing potassium. Erhlichiosis pending. blood sugar improved. Updated father of patient at bedside. SBT a little better- SBT trial tomorrow. 02/04/21- continue with free water with OG tube. recheck Na level. Will see how SBT goes- possible extubation tomorrow depending on what decides- reasoning is Miryam would not want to be intubated. 02/05/21- spoke with eICU - spoke with patient's - they still do not want a trach. Awaking cultures from sputum. Continue with SBTs trials. Will keep discussing her care- ultimately though will go with 's decisions which do line up with what patient has said on last admission. Though her mental state does play a role- of being tired of dealing with her health problems. She would not like to be dependent on a trach or ventilator. 02/06/21- on meropenem to cover pna. Did not tolerate SBT today. UOP decreased. Cr elevated. appreciate eICU consult. erhlichiosis IgM elevated, IgG negative. Patient indicated she did not want to give up on and go on comfort care. 02/07/21- hgb still 7. Will order 2 units of pRBC with lasix in between units. Monitor UOP. Kidneys are in trouble. Pt has been given a couple NS boluses. recheck bmp in AM. 02/08/21- hgb up to 7.8, Creatinine above 2. Monitor I/O. eICU recommend trach. Continue daily SBTs. Treating gram neg pneumonia. Dispo: Prognosis- guarded/poor Problems: (1) Acute respiratory failure with hypoxia Assessment & Plan: supportive care- RT, oxygen, diuresing- (2) Disability due to neurological disorder Assessment & Plan: still unclear on etiology- erlichiosis panel positive IgM, negative IgG. Steroids did not help. - had signs of MS- oligoclonal bands- elevated on LP from last admission. Would be good to have an MRI of her head/neck but unable due to patient body habitus (3) Acute on chronic diastolic heart failure (4) Essential hypertension (5) Chronic kidney disease Qualifiers: (6) Obesity hypoventilation syndrome (7) Anemia of chronic disease (8) Morbid obesity (9) Type 2 diabetes mellitus with hyperglycemia (10) Positive serology for Erlichiosis Assessment & Plan: course of doxycycline (11) Acute on chronic renal failure (12) Pneumonia due to Enterobacter cloacae CHAZ ADLER MD Feb 08, 2021 13:01
[2021-02-08] MEDS ORDERED: NS IV 1000 ML 1,000 ML ONE (14:15)
[2021-02-08] MEDS ORDERED: NS IV 1000 ML 1,000 ML IV ONE (14:15)
[2021-02-08] MEDS: traZODone 100 MG (DESYREL) TAB PO SCH (20:46)
[2021-02-08] MEDS: ROSUVASTATIN 20 MG (CRESTOR) TABLET PO SCH (20:46)
[2021-02-09] VITALS (30 sets, daily range): BP systolic 82–144; BP diastolic 55–94
[2021-02-09] MEDS: RT-ALBUTEROL/IPRATROPIUM 3 ML (DUONEB) VIAL INH SCH ×4 (01:37→21:07)
[2021-02-09] MEDS: MEROPENEM 500 MG/SWFI 10 ML IV PUSH IV SCH ×8 (03:34→21:14)
[2021-02-09] MEDS: NS IV 500 ML 500 ML IV SCH ×2 (03:34→19:39)
[2021-02-09 03:50] LABS: BASOPHILS % (AUTO) 0 % (0-10); EOSINOPHILS # (AUTO) 0.1 10^3/uL (0.0-0.3); EOSINOPHILS % (AUTO) 1 % (0-10); HEMATOCRIT 27 % (35-52); HEMOGLOBIN 7.6 g/dL (11.5-16.0); LYMPHOCYTES # (AUTO) 0.6 10^3/uL (1.0-4.0); LYMPHOCYTES % (AUTO) 9 % (12-44); MEAN CORPUSCULAR HEMOGLOBIN 26 pg (25-34); MEAN CORPUSCULAR HGB CONC 29 g/dL (32-36); MEAN CORPUSCULAR VOLUME 90 fL (80-99); MEAN PLATELET VOLUME 11.3 fL (9.0-12.2); MONOCYTES # (AUTO) 0.5 10^3/uL (0.0-1.0); MONOCYTES % (AUTO) 7 % (0-12); NEUTROPHILS # (AUTO) 5.2 10^3/uL (1.8-7.8); NEUTROPHILS % (AUTO) 74 % (42-75); PLATELET COUNT 242 10^3/uL (130-400)
[2021-02-09] MEDS: fentaNYL DRIP PRE-MIX 250 ML IV SCH ×4 (03:58→19:39)
[2021-02-09] MEDS: DexMEDEtomidine 250 ML DRIP 250 ML IV SCH ×4 (03:58→19:39)
[2021-02-09 04:05] LABS: ABG OXYGEN SATURATION 90 % (94-100); ABG PCO2 37 MMHG (35-45); ABG PO2 59 MMHG (79-93); ABG TCO2 18.4 MMOL/L (21.0-31.0)
[2021-02-09 04:07] LABS: ALLENS TEST YES-POS; INSPIRED O2 21%; PATIENT TEMP 37; VENTILATOR YES
[2021-02-09 04:11] LABS: POTASSIUM 4.2 MMOL/L (3.6-5.0)
[2021-02-09 04:13] LABS: ABG PH 7.29 (7.37-7.43)
[2021-02-09 04:13] LABS: CALCIUM 7.9 MG/DL (8.5-10.1)
[2021-02-09 04:17] LABS: CREATININE SERUM 2.18 MG/DL (0.60-1.30); PHOSPHORUS 5.4 MG/DL (2.3-4.7)
[2021-02-09 04:19] LABS: MAGNESIUM 2.1 MG/DL (1.6-2.4)
[2021-02-09] MEDS: POTASSIUM CL 10MEQ/50ML IVPB 50 ML IV SCH (05:21)
[2021-02-09] MEDS: inSUlin ASPART (NovoLOG) 1 UNIT/0.01 ML (CHARGE PER UNIT) SQ SCH ×3 (05:21→18:00)
[2021-02-09] MEDS: KCL 20 MEQ TAB (K-DUR) PO SCH (05:21)
[2021-02-09] MEDS: MAGNESIUM 1 GM/100 ML IVPB 100 ML IV SCH (05:21)
[2021-02-09] MEDS: DEXTROSE IV SCH ×6 (05:22→17:59)
[2021-02-09] MEDS: SODIUM BICARBONATE IV SCH ×6 (05:22→17:59)
--- NOTE | 2021-02-09 07:55 | Physical Therapy Progress Note ---
Therapy Progress Note Pt is currently intubated. PT will continue to monitor pt and initiate therapy when pt is more medically stable and able to actively participate in skilled therapy. DIPIKA ZHANG PT Feb 09, 2021 07:55
[2021-02-09] MEDS: ENOXAPARIN 40 MG/0.4 ML (LOVENOX) SYR SC SCH (08:11)
[2021-02-09] MEDS: PANTOPRAZOLE 40 MG (PROTONIX) VIAL IV SCH ×2 (08:11→21:15)
[2021-02-09] MEDS: ASPIRIN E.C. 81 MG (ECOTRIN) TAB PO SCH (08:11)
[2021-02-09] MEDS: FLUCONAZOLE 100 MG/50 ML 50 ML IV SCH (08:11)
--- NOTE | 2021-02-09 08:36 | Tele-ICU Progress Note ---
Subjective Date Seen by a Provider: Feb 09, 2021 Time Seen by a Provider: 09:54 Subjective/Events-last exam Remains on mechanical vent day 11 AC 20, Vt 420, FiO2 25%, PEEP 5 ABG I reviewed CXR from 02/08, enlarged hear, elevated diaphragms from obesity Still on IV meropenem Now on SBT for 5 min, on PSV 10 with spont RR in 40's with VT 280, SpO2 84% At this point I would talk to family about trach/PEG called later for oliguria, Cr in 2's, CXR looks congested with marked cardiomegaly, Cardiology note mentions type 2 NSTEMI, normal ejection fraction, will give 250 mL normal saline bolus Sepsis Event Evaluation Height, Weight, BMI Height: 5'2.00" Weight: 280lbs. 0.0oz. 127.734789nu; 52.92 BMI Method:Stated Exam Exam Patient acknowledged, consented, and participated in this virtual visit which was conducted using real time audio/video Vital Signs Date Time Temp Pulse Resp B/P (MAP) Pulse Ox O2 Delivery O2 Flow Rate FiO2 02/09/21 08:13 35.1 02/09/21 07:00 93 02/09/21 06:24 Mechanical Ventilator 25.00 02/09/21 06:00 79 22 105/77 (86) 90 Mechanical Ventilator 21.00 02/09/21 05:00 80 21 107/76 (86) 91 Mechanical Ventilator 21.00 02/09/21 04:00 Mechanical Ventilator 21 02/09/21 04:00 81 21 101/71 (81) 91 Mechanical Ventilator 21.00 02/09/21 03:44 37.0 02/09/21 03:00 81 22 97/66 (76) 92 Mechanical Ventilator 21.00 02/09/21 02:00 81 23 101/70 (80) 93 Mechanical Ventilator 21.00 02/09/21 01:37 81 25 98 25 02/09/21 01:00 81 02/09/21 01:00 81 21 107/71 (83) 98 Mechanical Ventilator 21.00 02/09/21 00:40 Mechanical Ventilator 21.00 02/09/21 00:00 83 18 107/78 (88) 98 Mechanical Ventilator 25.00 02/09/21 00:00 Mechanical Ventilator 25 02/08/21 23:28 36.0 Mechanical Ventilator 25.00 02/08/21 23:00 86 22 111/76 (88) 98 Mechanical Ventilator 25.00 02/08/21 22:00 101 24 113/78 (90) 97 Mechanical Ventilator 25.00 02/08/21 21:36 Mechanical Ventilator 25.00 02/08/21 21:33 96 25 100 30 02/08/21 21:00 82 19 100/69 (79) 100 Mechanical Ventilator 30.00 02/08/21 20:00 82 22 111/78 (89) 99 Mechanical Ventilator 30.00 02/08/21 20:00 Mechanical Ventilator 25 02/08/21 19:45 37.6 02/08/21 19:00 85 27 107/79 (88) 99 Mechanical Ventilator 30.00 02/08/21 19:00 85 02/08/21 18:50 86 25 99 30 02/08/21 18:20 90 119/78 02/08/21 18:00 93 24 112/76 (88) 100 Mechanical Ventilator 30.00 02/08/21 17:00 105 21 112/71 (85) 99 Mechanical Ventilator 30.00 02/08/21 16:30 36.9 02/08/21 16:15 100 Mechanical Ventilator 30 02/08/21 16:00 80 24 107/73 (84) 99 Mechanical Ventilator 30.00 02/08/21 15:49 88 23 100 30 02/08/21 15:00 82 23 108/70 (83) 100 Mechanical Ventilator 30.00 02/08/21 14:14 86 112/72 02/08/21 14:00 87 24 112/72 (85) 98 Mechanical Ventilator 30.00 02/08/21 13:00 94 25 113/73 (86) 97 Mechanical Ventilator 30.00 02/08/21 12:44 86 02/08/21 12:00 90 27 99/67 (78) 97 Mechanical Ventilator 30.00 02/08/21 11:49 100 Mechanical Ventilator 30 02/08/21 11:45 37.3 02/08/21 11:00 82 27 107/77 (87) 98 Mechanical Ventilator 30.00 02/08/21 10:00 86 15 105/75 (85) 98 Mechanical Ventilator 30.00 02/08/21 09:33 88 33 95 30 02/08/21 09:28 91 105/70 02/08/21 09:00 89 27 106/72 (83) 98 Mechanical Ventilator 30.00 I & O 02/09/21 06:59 Intake Total 7130 ml Output Total 305 ml Balance 6825 ml Height & Weight Height: 5'2.00" Weight: 280lbs. 0.0oz. 127.275815hg; 52.92 BMI Method:Stated General Appearance: Obese, Other (sedation stopped for SBT, pt was awake but failed SBT after 10 min) HEENT: Moist Mucous Membranes Neck: Full Range of Motion, Normal Inspection Respiratory: Chest Non Tender, Rhonci, Other (right IJ, site looks ok, would try to change to mid line or PICC line) Cardiovascular: Regular Rate, Rhythm Capillary Refill: Less Than 3 Seconds Gastrointestinal: normal bowel sounds, non tender, soft, other (hypoactive bowel sounds) Extremity: Normal Capillary Refill, Pedal Edema, Other Neurologic/Psychiatric: Alert Skin: Normal Color, Warm/Dry Results Lab Laboratory Tests 02/08/21 04:30 02/09/21 03:44 Assessment/Plan Assessment/Plan quickly failured SBT , In my opinion should gve trach/PEG, family to be talked to today, continue on vent, would pull IJ in favor or midline or PICC line For oliguria will give 250 ml saline bolus Critical Care: Critically Ill Patient Time spent with patient (mins): 25 RODRIGO EL MD Feb 09, 2021 08:36
--- NOTE | 2021-02-09 08:54 | Cardiology Progress Note ---
Progress Note-Cardiology Events since last exam Date Seen by Provider: Feb 09, 2021 Time Seen by Provider: 08:53 Events since last exam We are seeing her due to probable NSTEMI. She remains in the ICU intubated but on mild sedation was IV Precedex and fentanyl. She has been following commands for nursing. Her is at the bedside. Certain portions of this document may have been dictated utilizing voice recognition technology. Inherent to this technology, typographical and grammatical errors may exist. As much as I am diligent to identify and correct these mistakes, some errors may remain in the document. Vitals Last set of Vitals Signs Vital Signs 02/09/21 02/09/21 02/09/21 15:56 18:00 18:14 Temp 35.7 Pulse 91 Resp 29 B/P (MAP) 102/62 (75) Pulse Ox 99 O2 Delivery Mechanical Ventilator O2 Flow Rate 30.00 FiO2 30 Labs Labs Laboratory Tests 02/09/21 03:44 Exam Vital Signs Vital Signs Date Time Temp Pulse Resp B/P (MAP) Pulse Ox O2 Delivery O2 Flow Rate FiO2 02/09/21 18:14 91 29 99 30 02/09/21 18:00 102/62 (75) Mechanical Ventilator 30.00 02/09/21 15:56 35.7 Physical Exam General: Intubated but awake and tracking movements. Well nourished and appears stated age. She is morbidly obese. Eye: Conjunctivae are clear. There are no xanthelasma. HENT: Normocephalic. Atraumatic. Carotid pulsations 2/2 without bruits. Neck: Jugular venous pressure does not appear elevated. No thyromegaly appreciated. Respiratory: Symmetrical expansion bilaterally. Coarse breath sounds to the ventilator. Cardiovascular: Normal rate. Regular rhythm. No murmur. No gallop. Point of maximal impulse is not appear displaced. Good pulses equal in all extremities. No edema. Gastrointestinal: Soft. Normal bowel sounds. Skin: Skin turgor is normal. There is no pallor. Musculoskeletal: No obvious deformities. Neurologic: Intubated and awake. Psychiatric: Not obtainable due to clinical status. Labs Laboratory Tests Test 02/08/21 23:33 02/09/21 03:44 02/09/21 04:00 02/09/21 11:36 Range/Units Glucometer 182 H 146 H 70-110 MG/DL White Blood Count 7.0 4.3-11.0 10^3/uL Red Blood Count 2.95 L 3.80-5.11 10^6/uL Hemoglobin 7.6 L 11.5-16.0 g/dL Hematocrit 27 L 35-52 % Mean Corpuscular Volume 90 80-99 fL Mean Corpuscular Hemoglobin 26 25-34 pg Mean Corpuscular Hemoglobin Concent 29 L 32-36 g/dL Red Cell Distribution Width 26.5 H 10.0-14.5 % Platelet Count 242 130-400 10^3/uL Mean Platelet Volume 11.3 9.0-12.2 fL Immature Granulocyte % (Auto) 10 % Neutrophils (%) (Auto) 74 42-75 % Lymphocytes (%) (Auto) 9 L 12-44 % Monocytes (%) (Auto) 7 0-12 % Eosinophils (%) (Auto) 1 0-10 % Basophils (%) (Auto) 0 0-10 % Neutrophils # (Auto) 5.2 1.8-7.8 10^3/uL Lymphocytes # (Auto) 0.6 L 1.0-4.0 10^3/uL Monocytes # (Auto) 0.5 0.0-1.0 10^3/uL Eosinophils # (Auto) 0.1 0.0-0.3 10^3/uL Basophils # (Auto) 0.0 0.0-0.1 10^3/uL Immature Granulocyte # (Auto) 0.7 H 0.0-0.1 10^3/uL Sodium Level 142 135-145 MMOL/L Potassium Level 4.2 3.6-5.0 MMOL/L Chloride Level 114 H 98-107 MMOL/L Carbon Dioxide Level 16 L 21-32 MMOL/L Anion Gap 12 5-14 MMOL/L Blood Urea Nitrogen 55 H 7-18 MG/DL Creatinine 2.18 H 0.60-1.30 MG/DL Estimat Glomerular Filtration Rate 25 BUN/Creatinine Ratio 25 Glucose Level 171 H 70-105 MG/DL Calcium Level 7.9 L 8.5-10.1 MG/DL Phosphorus Level 5.4 H 2.3-4.7 MG/DL Magnesium Level 2.1 1.6-2.4 MG/DL Blood Gas Puncture Site RIGHT RADIAL Blood Gas Patient Temperature 37 Arterial Blood pH 7.29 *L 7.37-7.43 Arterial Blood Partial Pressure CO2 37 35-45 MMHG Arterial Blood Partial Pressure O2 59 L 79-93 MMHG Arterial Blood HCO3 17 *L 23-27 MMOL/L Arterial Blood Total CO2 18.4 L 21.0-31.0 MMOL/L Arterial Blood Oxygen Saturation 90 L 94-100 % Arterial Blood Base Excess -8.0 L -2.5-2.5 MMOL/L Denilson Test YES-POS Blood Gas Ventilator Setting YES Blood Gas Inspired Oxygen 21% Test 02/09/21 13:10 02/09/21 17:52 Range/Units Stool Occult Blood Immunoassay POSITIVE H NEGATIVE Glucometer 146 H 70-110 MG/DL Diagnosis/Problems Diagnosis/Problems (1) Troponin level elevated Assessment & Plan: This is probably a type II non-ST elevation myocardial infarction due to supply/demand mismatch from her acute respiratory decompensation. However, she was also having some ill described chest discomfort. Her chest discomfort had resolved before her respiratory status declined. Continue aspirin, beta-hiram, and statin medication. She had an echocardiogram on February 03 and this showed a normal ejection fraction. For the time being, we will continue with medical management. We will need to wait until her respiratory status improves before we can consider additional cardiac evaluation. However, today the patient spoke with her primary provider and there has been some discussion about withdrawing care next week if she cannot come off the ventilator over the weekend. (2) Acute on chronic diastolic heart failure Assessment & Plan: Chest x-ray from 02/08 did not show overt pulmonary edema. The hospitalist and eICU are managing the fluids. She failed a weaning trial today and there discussion with the patient about withdrawing support next week as outlined above. (3) Acute on chronic respiratory failure with hypoxia and hypercapnia Assessment & Plan: As above, she failed weaning trial this morning. (4) Essential hypertension Assessment & Plan: Well controlled on present medication. (5) Mixed hyperlipidemia Assessment & Plan: Continue rosuvastatin. This is a new medication for the patient and will need to be followed after discharge unless she decides to withdraw care. (6) Morbid obesity Assessment & Plan: Her obesity is most likely leading to the majority of her medical conditions. I spoke with her regular outpatient attending today and chiquita arently, she has had a significant decline over the past worsening obesity. This is a rather unfortunate situation. ENOC LAWSON JR, MD Feb 09, 2021 08:54
[2021-02-09] MEDS: LORazepam INJ 2 MG/ML (ATIVAN) VIAL IVP PRN (10:05)
--- NOTE | 2021-02-09 11:40 | Progress Note ---
Standard Progress Note Progress Notes/Assess & Plan Date Seen by a Provider: Feb 09, 2021 Time Seen by a Provider: 11:39 Progress/Assessment & Plan spoke with PCP, pt had LP with results suggestive of multiple sclerosis, this is reason for Medrol Also RN called Propofol being lowered due to very high TG's and now more agitated with higher [place] on vent, will raise Versed to 12 and then 15 if needed RODRIGO EL MD Feb 09, 2021 11:40
[2021-02-09] MEDS ORDERED: NS (IVPB) 250 ML IV ONE ×2 (11:45→18:45)
--- NOTE | 2021-02-09 17:10 | Progress Note ---
Subjective Subjective Date Seen by Provider: Feb 09, 2021 Time Seen by Provider: 16:00 Still intubated. Spoke with patient and she was alert and answering questions by head nod with hand squeeze or head shake. She did not give a head nod or squeeze my hand when I explained and asked her about putting a trach in. Review of Systems ROS Unable to Obtain: intubated Neurological: Other All Other Systems Reviewed All Other Systems Reviewed: Yes Objective Exam Vital Signs Vital Signs Date Time Temp Pulse Resp B/P (MAP) Pulse Ox O2 Delivery O2 Flow Rate FiO2 02/09/21 16:00 76 26 103/66 (78) 100 Mechanical Ventilator 30.00 02/09/21 15:56 35.7 02/09/21 15:22 Mechanical Ventilator 30 02/09/21 15:04 75 24 99 30 02/09/21 15:00 75 25 98/69 (79) 99 Mechanical Ventilator 30.00 02/09/21 14:33 78 103/68 02/09/21 14:00 78 24 103/68 (80) 99 Mechanical Ventilator 30.00 02/09/21 13:00 89 02/09/21 13:00 90 19 94/67 (76) 97 Mechanical Ventilator 30.00 02/09/21 12:11 89 26 98 25 02/09/21 12:00 88 22 90/57 (68) 98 Mechanical Ventilator 30.00 02/09/21 12:00 Mechanical Ventilator 30 02/09/21 11:52 35.1 02/09/21 11:00 76 21 110/78 (89) 100 Mechanical Ventilator 30.00 02/09/21 10:06 Mechanical Ventilator 30.00 02/09/21 10:00 101 35 144/94 (111) 96 Mechanical Ventilator 25.00 02/09/21 09:00 84 24 119/88 (98) 96 Mechanical Ventilator 25.00 02/09/21 08:54 85 118/82 02/09/21 08:32 87 25 97 25 02/09/21 08:13 35.1 02/09/21 08:00 97 Mechanical Ventilator 25 02/09/21 08:00 95 24 117/79 (92) 97 Mechanical Ventilator 25.00 02/09/21 07:00 93 02/09/21 07:00 82 25 101/74 (83) 97 Mechanical Ventilator 25.00 02/09/21 06:24 Mechanical Ventilator 25.00 02/09/21 06:00 79 22 105/77 (86) 90 Mechanical Ventilator 21.00 02/09/21 05:00 80 21 107/76 (86) 91 Mechanical Ventilator 21.00 02/09/21 04:00 Mechanical Ventilator 21 02/09/21 04:00 81 21 101/71 (81) 91 Mechanical Ventilator 21.00 02/09/21 03:44 37.0 02/09/21 03:00 81 22 97/66 (76) 92 Mechanical Ventilator 21.00 02/09/21 02:00 81 23 101/70 (80) 93 Mechanical Ventilator 21.00 02/09/21 01:37 81 25 98 25 02/09/21 01:00 81 02/09/21 01:00 81 21 107/71 (83) 98 Mechanical Ventilator 21.00 02/09/21 00:40 Mechanical Ventilator 21.00 02/09/21 00:00 83 18 107/78 (88) 98 Mechanical Ventilator 25.00 02/09/21 00:00 Mechanical Ventilator 25 02/08/21 23:28 36.0 Mechanical Ventilator 25.00 02/08/21 23:00 86 22 111/76 (88) 98 Mechanical Ventilator 25.00 02/08/21 22:00 101 24 113/78 (90) 97 Mechanical Ventilator 25.00 02/08/21 21:36 Mechanical Ventilator 25.00 02/08/21 21:33 96 25 100 30 02/08/21 21:00 82 19 100/69 (79) 100 Mechanical Ventilator 30.00 02/08/21 20:00 82 22 111/78 (89) 99 Mechanical Ventilator 30.00 02/08/21 20:00 Mechanical Ventilator 25 02/08/21 19:45 37.6 02/08/21 19:00 85 27 107/79 (88) 99 Mechanical Ventilator 30.00 02/08/21 19:00 85 02/08/21 18:50 86 25 99 30 02/08/21 18:20 90 119/78 02/08/21 18:00 93 24 112/76 (88) 100 Mechanical Ventilator 30.00 I & O 02/09/21 07:00 Intake Total 7080 ml Output Total 305 ml Balance 6775 ml General Appearance: No WD/WN, No Mild Distress; Obese, Other (intubated) Eyes: Bilateral Eye Normal Inspection, Bilateral Eye PERRL HEENT: Moist Mucous Membranes Neck: Full Range of Motion, Normal Inspection Respiratory: Chest Non Tender, Lungs Clear, Other (intubated) Cardiovascular: Regular Rate, Rhythm; No Tachycardia Gastrointestinal: Normal Bowel Sounds Extremity: Normal Capillary Refill, Pedal Edema (right leg), Other Neurologic/Psychiatric: Alert; No Oriented x3, No No Motor/Sensory Deficits, No Normal Mood/Affect Skin: Normal Color, Warm/Dry Results Lab Laboratory Tests 02/08/21 17:51: Glucometer 165H 02/08/21 23:33: Glucometer 182H 02/09/21 03:44: White Blood Count 7.0, Red Blood Count 2.95L, Hemoglobin 7.6L, Hematocrit 27L, Mean Corpuscular Volume 90, Mean Corpuscular Hemoglobin 26, Mean Corpuscular Hemoglobin Concent 29L, Red Cell Distribution Width 26.5H, Platelet Count 242, Mean Platelet Volume 11.3, Immature Granulocyte % (Auto) 10, Neutrophils (%) (Auto) 74, Lymphocytes (%) (Auto) 9L, Monocytes (%) (Auto) 7, Eosinophils (%) (Auto) 1, Basophils (%) (Auto) 0, Neutrophils # (Auto) 5.2, Lymphocytes # (Auto) 0.6L, Monocytes # (Auto) 0.5, Eosinophils # (Auto) 0.1, Basophils # (Auto) 0.0, Immature Granulocyte # (Auto) 0.7H, Sodium Level 142, Potassium Level 4.2, Chloride Level 114H, Carbon Dioxide Level 16L, Anion Gap 12, Blood Urea Nitrogen 55H, Creatinine 2.18H, Estimat Glomerular Filtration Rate 25, BUN/Creatinine Ratio 25, Glucose Level 171H, Calcium Level 7.9L, Phosphorus Level 5.4H, M agnesium Level 2.1 02/09/21 04:00: Blood Gas Puncture Site RIGHT RADIAL, Blood Gas Patient Temperature 37, Arterial Blood pH 7.29*L, Arterial Blood Partial Pressure CO2 37, Arterial Blood Partial Pressure O2 59L, Arterial Blood HCO3 17*L, Arterial Blood Total CO2 18.4L, Arterial Blood Oxygen Saturation 90L, Arterial Blood Base Excess -8.0L, Denilson Test YES-POS, Blood Gas Ventilator Setting YES, Blood Gas Inspired Oxygen 21% 02/09/21 11:36: Glucometer 146H 02/09/21 13:10: Stool Occult Blood Immunoassay POSITIVEH Microbiology 02/07/21 Blood Culture - Preliminary, Resulted No growth 02/05/21 Gram Stain - Final, Complete 02/05/21 Sputum Culture - Final, Complete Enterobacter cloacae complex YEAST Usual upper respiratory kapil 02/04/21 Urine Culture - Final, Complete YEAST Assessment/Plan Assessment/Plan Assessment and Plan 02/01/21 Cr stable. Diuresing appreciate eICU, cardiology hgb stable- infusing Fe. -fluconazole added for yeast in sputum/urine. -finished cefepime 02/01/21 -stopped high dose steroids 02/01/21 (5 days) -sedation vacation- increased resp distress. 02/02/21- blood sugars still high- go up to sliding scale C- gave additional 10 units levemir once. updated that her kidneys were functioning well through this. -current issue is her respiratory status. continue as above 02/03/21- replacing potassium. Erhlichiosis pending. blood sugar improved. Updated father of patient at bedside. SBT a little better- SBT trial tomorrow. 02/04/21- continue with free water with OG tube. recheck Na level. Will see how SBT goes- possible extubation tomorrow depending on what decides- reasoning is Miryam would not want to be intubated. 02/05/21- spoke with eICU - spoke with patient's - they still do not want a trach. Awaking cultures from sputum. Continue with SBTs trials. Will keep discussing her care- ultimately though will go with 's decisions which do line up with what patient has said on last admission. Though her me ntal state does play a role- of being tired of dealing with her health problems. She would not like to be dependent on a trach or ventilator. 02/06/21- on meropenem to cover pna. Did not tolerate SBT today. UOP decreased. Cr elevated. appreciate eICU consult. erhlichiosis IgM elevated, IgG negative. Patient indicated she did not want to give up on and go on comfort care. 02/07/21- hgb still 7. Will order 2 units of pRBC with lasix in between units. Monitor UOP. Kidneys are in trouble. Pt has been given a couple NS boluses. recheck bmp in AM. 02/08/21- hgb up to 7.8, Creatinine above 2. Monitor I/O. eICU recommend trach. Continue daily SBTs. Treating gram neg pneumonia. 02/09/21- hgb about the same. Kidneys not better. IVF bolus given. Spoke with eICU and - likely patient will not get off the ventilator so putting a trach in likely will not change the outcome. I also spoke with patient today and when asked about trach she did not indicate she would want that by her usual head nod. Same in regards to PEG tube. Will monitor over the weekend and if she has not made any improvement then likely comfort care. If she continues to have rectal bleeding and worsening of kidney failure- will go comfort care. Dispo: Prognosis- guarded/poor Problems: (1) Acute respiratory failure with hypoxia Assessment & Plan: supportive care- RT, oxygen, diuresing- (2) Disability due to neurological disorder Assessment & Plan: still unclear on etiology- erlichiosis panel positive IgM, negative IgG. Steroids did not help. - had signs of MS- oligoclonal bands- elevated on LP from last admission. Would be good to have an MRI of her head/neck but unable due to patient body habitus (3) Acute on chronic diastolic heart failure (4) Essential hypertension (5) Chronic kidney disease Qualifiers: (6) Obesity hypoventilation syndrome (7) Anemia of chronic disease (8) Morbid obesity (9) Type 2 diabetes mellitus with hyperglycemia (10) Positive serology for Erlichiosis Assessment & Plan: course of doxycycline (11) Acute on chronic renal failure (12) Pneumonia due to Enterobacter cloacae CHAZ ADLER MD Feb 09, 2021 17:10
--- NOTE | 2021-02-09 18:33 | Progress Note ---
Standard Progress Note Progress Notes/Assess & Plan Date Seen by a Provider: Feb 09, 2021 Time Seen by a Provider: 18:32 Progress/Assessment & Plan UO still poor, does not sound congested will give another 250 ml bolus MD SIENNA Dominguez JOSEPH K MD Feb 09, 2021 18:33
[2021-02-09] MEDS: ROSUVASTATIN 20 MG (CRESTOR) TABLET PO SCH (21:14)
[2021-02-09] MEDS: traZODone 100 MG (DESYREL) TAB PO SCH (21:16)
[2021-02-10] VITALS (30 sets, daily range): BP systolic 90–145; BP diastolic 63–87
[2021-02-10] MEDS: inSUlin ASPART (NovoLOG) 1 UNIT/0.01 ML (CHARGE PER UNIT) SQ SCH ×4 (00:49→18:13)
[2021-02-10] MEDS: fentaNYL DRIP PRE-MIX 250 ML IV SCH ×5 (00:50→23:35)
[2021-02-10] MEDS: DexMEDEtomidine 250 ML DRIP 250 ML IV SCH ×5 (00:51→21:28)
[2021-02-10] MEDS: RT-ALBUTEROL/IPRATROPIUM 3 ML (DUONEB) VIAL INH SCH ×4 (02:55→22:33)
[2021-02-10 03:38] LABS: ABG BASE EXCESS -6.9 MMOL/L (-2.5-2.5); ABG OXYGEN SATURATION 97 % (94-100); ABG PCO2 39 MMHG (35-45); ABG PO2 87 MMHG (79-93); ABG TCO2 19.8 MMOL/L (21.0-31.0); ALLENS TEST YES-POS; INSPIRED O2 30%; VENTILATOR YES
[2021-02-10 03:39] LABS: ABG PH 7.29 (7.37-7.43); PATIENT TEMP 36.2
[2021-02-10 04:29] LABS: BASOPHILS % (AUTO) 0 % (0-10); EOSINOPHILS # (AUTO) 0.1 10^3/uL (0.0-0.3); EOSINOPHILS % (AUTO) 1 % (0-10); HEMATOCRIT 26 % (35-52); HEMOGLOBIN 7.3 g/dL (11.5-16.0); LYMPHOCYTES # (AUTO) 0.6 10^3/uL (1.0-4.0); LYMPHOCYTES % (AUTO) 8 % (12-44); MEAN CORPUSCULAR HEMOGLOBIN 26 pg (25-34); MEAN CORPUSCULAR HGB CONC 29 g/dL (32-36); MEAN CORPUSCULAR VOLUME 90 fL (80-99); MEAN PLATELET VOLUME 11.4 fL (9.0-12.2); MONOCYTES # (AUTO) 0.4 10^3/uL (0.0-1.0); MONOCYTES % (AUTO) 4 % (0-12); NEUTROPHILS # (AUTO) 6.5 10^3/uL (1.8-7.8); NEUTROPHILS % (AUTO) 78 % (42-75); PLATELET COUNT 233 10^3/uL (130-400); WHITE BLOOD COUNT 8.3 10^3/uL (4.3-11.0)
[2021-02-10] MEDS: MEROPENEM 500 MG/SWFI 10 ML IV PUSH IV SCH ×8 (04:42→21:27)
[2021-02-10] MEDS: DEXTROSE IV SCH ×4 (04:42→15:24)
[2021-02-10] MEDS: SODIUM BICARBONATE IV SCH ×4 (04:42→15:24)
[2021-02-10 04:54] LABS: POTASSIUM 4.2 MMOL/L (3.6-5.0)
[2021-02-10 04:55] LABS: CALCIUM 7.6 MG/DL (8.5-10.1)
[2021-02-10] MEDS: POTASSIUM CL 10MEQ/50ML IVPB 50 ML IV SCH (04:56)
[2021-02-10] MEDS: KCL 20 MEQ TAB (K-DUR) PO SCH (04:56)
[2021-02-10 04:59] LABS: CREATININE SERUM 2.03 MG/DL (0.60-1.30)
[2021-02-10] MEDS: MAGNESIUM 1 GM/100 ML IVPB 100 ML IV SCH (05:58)
[2021-02-10] MEDS: LORazepam INJ 2 MG/ML (ATIVAN) VIAL IVP PRN ×2 (06:32→15:31)
--- NOTE | 2021-02-10 08:50 | Cardiology Progress Note ---
Progress Note-Cardiology Events since last exam Date Seen by Provider: Feb 10, 2021 Time Seen by Provider: 08:45 Events since last exam We are seeing her due to possible NSTEMI. She failed a weaning trial yesterday but that was with no sedation. This morning she is barely arousable. Her is at the bedside. I spoke to the as well as today's nurse. The plan will be for another weaning trial today. Certain portions of this document may have been dictated utilizing voice recognition technology. Inherent to this technology, typographical and grammatical errors may exist. As much as I am diligent to identify and correct these mistakes, some errors may remain in the document. Vitals Last set of Vitals Signs Vital Signs 02/10/21 02/10/21 02/10/21 03:43 08:00 08:01 Temp 36.2 Pulse 77 Resp 24 B/P (MAP) 112/77 (89) Pulse Ox 97 O2 Delivery Mechanical Ventilator O2 Flow Rate 30.00 FiO2 30 Labs Labs Laboratory Tests 02/10/21 04:20 Exam Vital Signs Vital Signs Date Time Temp Pulse Resp B/P (MAP) Pulse Ox O2 Delivery O2 Flow Rate FiO2 02/10/21 08:01 97 Mechanical Ventilator 30 02/10/21 08:00 77 24 112/77 (89) 30.00 02/10/21 03:43 36.2 Physical Exam General: Intubated and sedated. Well nourished and appears stated age. Not arousable to voice. Morbidly obese. Eye: Conjunctivae are clear. There are no xanthelasma. HENT: Normocephalic. Atraumatic. Carotid pulsations 2/2 without bruits. Neck: Jugular venous pressure does not appear elevated. No thyromegaly appreciated. Respiratory: Symmetrical expansion bilaterally. Coarse breath sounds to the ventilator. Cardiovascular: Normal rate. Regular rhythm. No murmur. No gallop. Point of maximal impulse is not appear displaced. Good pulses equal in all extremities. No edema. Gastrointestinal: Soft. Normal bowel sounds. Skin: Skin turgor is normal. There is no pallor. Musculoskeletal: No obvious deformities. Neurologic: Intubated and sedated. Psychiatric: Not obtainable due to clinical status. Labs Laboratory Tests Test 02/09/21 11:36 02/09/21 13:10 02/09/21 17:52 02/10/21 00:48 Range/Units Glucometer 146 H 146 H 189 H 70-110 MG/DL Stool Occult Blood Immunoassay POSITIVE H NEGATIVE Test 02/10/21 03:31 02/10/21 04:20 Range/Units Blood Gas Puncture Site R RADIAL Blood Gas Patient Temperature 36.2 Arterial Blood pH 7.29 *L 7.37-7.43 Arterial Blood Partial Pressure CO2 39 35-45 MMHG Arterial Blood Partial Pressure O2 87 79-93 MMHG Arterial Blood HCO3 19 L 23-27 MMOL/L Arterial Blood Total CO2 19.8 L 21.0-31.0 MMOL/L Arterial Blood Oxygen Saturation 97 94-100 % Arterial Blood Base Excess -6.9 L -2.5-2.5 MMOL/L Denilson Test YES-POS Blood Gas Ventilator Setting YES Blood Gas Inspired Oxygen 30% White Blood Count 8.3 4.3-11.0 10^3/uL Red Blood Count 2.84 L 3.80-5.11 10^6/uL Hemoglobin 7.3 L 11.5-16.0 g/dL Hematocrit 26 L 35-52 % Mean Corpuscular Volume 90 80-99 fL Mean Corpuscular Hemoglobin 26 25-34 pg Mean Corpuscular Hemoglobin Concent 29 L 32-36 g/dL Red Cell Distribution Width 26.1 H 10.0-14.5 % Platelet Count 233 130-400 10^3/uL Mean Platelet Volume 11.4 9.0-12.2 fL Immature Granulocyte % (Auto) 9 % Neutrophils (%) (Auto) 78 H 42-75 % Lymphocytes (%) (Auto) 8 L 12-44 % Monocytes (%) (Auto) 4 0-12 % Eosinophils (%) (Auto) 1 0-10 % Basophils (%) (Auto) 0 0-10 % Neutrophils # (Auto) 6.5 1.8-7.8 10^3/uL Lymphocytes # (Auto) 0.6 L 1.0-4.0 10^3/uL Monocytes # (Auto) 0.4 0.0-1.0 10^3/uL Eosinophils # (Auto) 0.1 0.0-0.3 10^3/uL Basophils # (Auto) 0.0 0.0-0.1 10^3/uL Immature Granulocyte # (Auto) 0.7 H 0.0-0.1 10^3/uL Sodium Level 144 135-145 MMOL/L Potassium Level 4.2 3.6-5.0 MMOL/L Chloride Level 113 H 98-107 MMOL/L Carbon Dioxide Level 17 L 21-32 MMOL/L Anion Gap 14 5-14 MMOL/L Blood Urea Nitrogen 55 H 7-18 MG/DL Creatinine 2.03 H 0.60-1.30 MG/DL Estimat Glomerular Filtration Rate 27 BUN/Creatinine Ratio 27 Glucose Level 163 H 70-105 MG/DL Calcium Level 7.6 L 8.5-10.1 MG/DL Magnesium Level 2.0 1.6-2.4 MG/DL Diagnosis/Problems Diagnosis/Problems (1) Troponin level elevated Assessment & Plan: This is probably a type II non-ST elevation myocardial infarction due to supply/demand mismatch from her acute respiratory decompensation. Her chest discomfort had resolved before her respiratory status declined. Continue aspirin, beta-hiram, and statin medication. She had an echocardiogram on February 03 and this showed a normal ejection fraction. For the time being, we will continue with medical management. We will need to wait until her respiratory status improves before we can consider additional cardiac evaluation. However, today the patient spoke with her primary provider and there has been some discussion about withdrawing care on Friday if she cannot come off the ventilator over the weekend. (2) Acute on chronic diastolic heart failure Assessment & Plan: Chest x-ray from 02/08 did not show overt pulmonary edema. The hospitalist and eICU are managing the fluids. I will obtain a follow-up chest x-ray this morning to see whether or not she may need a dose of IV diuretic. (3) Acute on chronic respiratory failure with hypoxia and hypercapnia Assessment & Plan: She will undergo another weaning trial today. I suggested stopping fentanyl but leaving her on Precedex to see if she might be able to tolerate the weaning trial a little bit better than yesterday when she had no sedation. (4) Essential hypertension Assessment & Plan: Well controlled on present medication. (5) Mixed hyperlipidemia Assessment & Plan: Continue rosuvastatin. (6) Morbid obesity Assessment & Plan: Her obesity is most likely leading to the majority of her medical conditions. I spoke with her regular outpatient attending today and apparently, she has had a significant decline over the past worsening obesity. This is a rather unfortunate situation. ENOC LAWSON JR, MD Feb 10, 2021 08:49
[2021-02-10] MEDS: FLUCONAZOLE 100 MG/50 ML 50 ML IV SCH (09:01)
[2021-02-10] MEDS: PANTOPRAZOLE 40 MG (PROTONIX) VIAL IV SCH ×2 (09:01→20:19)
[2021-02-10] MEDS: ASPIRIN E.C. 81 MG (ECOTRIN) TAB PO SCH (09:01)
[2021-02-10] MEDS: ENOXAPARIN 40 MG/0.4 ML (LOVENOX) SYR SC SCH (09:49)
--- NOTE | 2021-02-10 09:52 | Diagnostic Imaging Report ---
EXAMINATION: Chest 1 view HISTORY: Acute respiratory distress COMPARISON: 02/08/2021 FINDINGS: Endotracheal tube tip terminates 2 cm above the yamileth. Gastric tube tip terminates below the field of view. Heart is markedly enlarged. There is moderate edema. Soft tissue obscures the costophrenic angles. IMPRESSION: 1. Moderate edema and markedly enlarged heart Dictated by: Dictated on workstation # [id number]
[2021-02-10] MEDS ORDERED: FUROSEMIDE 40 MG/4 ML INJ (LASIX) IVP ONE (10:30)
--- NOTE | 2021-02-10 11:29 | Progress Note ---
Subjective Date Seen by a Provider: Feb 10, 2021 Time Seen by a Provider: 11:21 Subjective/Events-last exam Fwup acute respiratory failure--vent dependent, acute on chronic renal failure, Morbid obesity with hypoventilation syndrome, underlyging neurological condition, Acute on Chronic Anemia, HTN, DMII with hyperglycemia, NSTEMI. Sedated on ventilator. at bedside. Objective Exam Vital Signs Date Time Temp Pulse Resp B/P (MAP) Pulse Ox O2 Delivery O2 Flow Rate FiO2 02/10/21 11:00 77 24 105/75 (85) 100 Mechanical Ventilator 30.00 02/10/21 10:48 79 22 100 25 02/10/21 10:46 80 113/80 02/10/21 10:00 86 20 113/80 (91) 98 Mechanical Ventilator 30.00 02/10/21 09:00 75 15 107/81 (90) 100 Mechanical Ventilator 30.00 02/10/21 08:01 97 Mechanical Ventilator 30 02/10/21 08:00 77 24 112/77 (89) 97 Mechanical Ventilator 30.00 02/10/21 07:09 74 20 100 30 02/10/21 07:00 75 02/10/21 07:00 75 14 90/65 (73) 100 Mechanical Ventilator 30.00 02/10/21 06:00 76 21 96/72 (80) 99 Mechanical Ventilator 30.00 02/10/21 06:00 76 123/71 02/10/21 05:00 75 27 123/71 (88) 100 Mechanical Ventilator 30.00 02/10/21 04:00 78 21 99/69 (79) 100 Mechanical Ventilator 30.00 02/10/21 04:00 99 Mechanical Ventilator 30 02/10/21 03:43 36.2 02/10/21 03:00 76 25 105/68 (80) 100 Mechanical Ventilator 30.00 02/10/21 02:55 76 25 100 30 02/10/21 02:00 76 22 100/72 (81) 100 Mechanical Ventilator 30.00 02/10/21 01:12 77 02/10/21 01:00 76 20 103/67 (79) 100 Mechanical Ventilator 30.00 02/10/21 00:51 78 103/65 02/10/21 00:00 79 21 103/71 (82) 100 Mechanical Ventilator 30.00 02/10/21 00:00 36.0 02/09/21 23:59 99 Mechanical Ventilator 30 02/09/21 23:00 90 28 103/72 (82) 98 Mechanical Ventilator 30.00 02/09/21 22:00 105 32 101/60 (74) 97 Mechanical Ventilator 30.00 02/09/21 21:07 73 23 99 30 02/09/21 21:00 71 20 98/59 (72) 98 Mechanical Ventilator 30.00 02/09/21 20:00 35.8 02/09/21 20:00 74 22 105/64 (78) 98 Mechanical Ventilator 30.00 02/09/21 20:00 98 Mechanical Ventilator 30 02/09/21 19:39 75 103/71 02/09/21 19:00 80 02/09/21 19:00 80 26 97/68 (78) 98 Mechanical Ventilator 30.00 02/09/21 18:14 91 29 99 30 02/09/21 18:00 85 27 102/62 (75) 98 Mechanical Ventilator 30.00 02/09/21 17:00 74 22 106/67 (80) 100 Mechanical Ventilator 30.00 02/09/21 16:00 76 26 103/66 (78) 100 Mechanical Ventilator 30.00 02/09/21 15:56 35.7 02/09/21 15:22 Mechanical Ventilator 30 02/09/21 15:04 75 24 99 30 02/09/21 15:00 75 25 98/69 (79) 99 Mechanical Ventilator 30.00 02/09/21 14:33 78 103/68 02/09/21 14:00 78 24 103/68 (80) 99 Mechanical Ventilator 30.00 02/09/21 13:00 89 02/09/21 13:00 90 19 94/67 (76) 97 Mechanical Ventilator 30.00 02/09/21 12:11 89 26 98 25 02/09/21 12:00 88 22 90/57 (68) 98 Mechanical Ventilator 30.00 02/09/21 12:00 Mechanical Ventilator 30 02/09/21 11:52 35.1 I & O 02/10/21 07:00 Intake Total 7170 ml Output Total 485 ml Balance 6685 ml Capillary Refill : Less Than 3 Seconds General Appearance: Other (sedated on ventilator) Respiratory: Lungs Clear, Decreased Breath Sounds Cardiovascular: Regular Rate, Rhythm Gastrointestinal: normal bowel sounds Extremity: Non Tender, No Calf Tenderness, No Pedal Edema, Other (SCDs in place) Neurologic/Psychiatric: Other (sedated on ventilator) Results Lab Laboratory Tests 02/09/21 11:36: Glucometer 146H 02/09/21 13:10: Stool Occult Blood Immunoassay POSITIVEH 02/09/21 17:52: Glucometer 146H 02/10/21 00:48: Glucometer 189H 02/10/21 03:31: Blood Gas Puncture Site R RADIAL, Blood Gas Patient Temperature 36.2, Arterial Blood pH 7.29*L, Arterial Blood Partial Pressure CO2 39, Arterial Blood Partial Pressure O2 87, Arterial Blood HCO3 19L, Arterial Blood Total CO2 19.8L, Arterial Blood Oxygen Saturation 97, Arterial Blood Base Excess -6.9L, Denilson Test YES-POS, Blood Gas Ventilator Setting YES, Blood Gas Inspired Oxygen 30% 02/10/21 04:20: White Blood Count 8.3, Red Blood Count 2.84L, Hemoglobin 7.3L, Hematocrit 26L, Mean Corpuscular Volume 90, Mean Corpuscular Hemoglobin 26, Mean Corpuscular Hemoglobin Concent 29L, Red Cell Distribution Width 26.1H, Platelet Count 233, Mean Platelet Volume 11.4, Immature Granulocyte % (Auto) 9, Neutrophils (%) (Auto) 78H, Lymphocytes (%) (Auto) 8L, Monocytes (%) (Auto) 4, Eosinophils (%) (Auto) 1, Basophils (%) (Auto) 0, Neutrophils # (Auto) 6.5, Lymphocytes # (Auto) 0.6L, Monocytes # (Auto) 0.4, Eosinophils # (Auto) 0.1, Basophils # (Auto) 0.0, Immature Granulocyte # (Auto) 0.7H, Sodium Level 144, Potassium Level 4.2, Chloride Level 113H, Carbon Dioxide Level 17L, Anion Gap 14, Blood Urea Nitrogen 55H, Creatinine 2.03H, Estimat Glomerular Filtration Rate 27, BUN/Creatinine Ratio 27, Glucose Level 163H, Calcium Level 7.6L, Magnesium Level 2.0 Microbiology 02/07/21 Blood Culture - Preliminary, Resulted No growth 02/05/21 Gram Stain - Final, Complete 02/05/21 Sputum Culture - Final, Complete Enterobacter cloacae complex YEAST Usual upper respiratory kapil 02/04/21 Urine Culture - Final, Complete YEAST Assessment/Plan Assessment/Plan Assess & Plan/Chief Complaint 1. Acute Respiratory Failure--sedated on ventilator, family was wanting to do weaning trials and see how she does 2. Acute on Chronic Renal Failure--Cr about same, has had decreased urine output over the last 24hrs and CXR looks like pulmonary edema so will give IV lasix and assess results 3. Hypertension--stable 4. Probably underlying neurology condition but did not respond to IV steroids for possible MS and unable to do MRIs due to body habitus and unable to transfer to another hospital due to no bed availability 5. DMII with hyperglycemia--on accuchecks with SSI 6. Acute on Chronic Anemia--blood thinners on hold and monitoring H/H 7. Morbid Obesity with Hypoventilation Syndrome 8. NSTEMI--cardiology consulted with medical management 9. Pulmonary Edema--IV lasix now Prognosis is very poor and /family is aware of this and have considered comfort care if patient does not improve this weekend INA MONK DO Feb 10, 2021 11:29
--- NOTE | 2021-02-10 11:43 | Tele-ICU Progress Note ---
Subjective Date Seen by a Provider: Feb 10, 2021 Time Seen by a Provider: 11:00 Subjective/Events-last exam This is a virtual visit which was conducted using real time audio/video. Thank you for asking us to see this patient for respiratory insufficiency and distress due to pna. HPC: Recent events: Failed SBT 02/09. PMH: possible MS SH: smoking history N FH: Non-contributory. ROS: limited by patient's clinical condition. PE: Obese. Appears comfortable.VSS HR 73 nsr BP 105/75 RR 21 O2 sat 99% on 30%/+5. HEENT: No obvious masses, adenopathy or JVD. Chest: clear to auscultation. CV: RRR S1 S2 No murmur or added sounds. Abd: Non-tender. Bowel sounds . : Unremarkable. [facility] Y. INPATIENT SERVICES RN/psychiatric: No obvious focal findings. Extremities: No edema. Capillary refill < 3 seconds. Skin: unremarkable. Results: Elevated BUN 55, Cr 2.03. . Decreased Hb 7.3. A/P: Respiratory insufficiency/distress: repeat SBT today when RT available. Available chart/ vitals / labs / Images reviewed. Video assessment done using teleICU camera, rest of exam as per RN. Respiratory: Continue present management with vent. If no progress by Friday leaning towards Comfort Care, per RN. Critical Care: critically ill patient. Discussed with ANN MARIE Krishnamurthy. Asked RN to reach out to eICU if any questions or concerns later. Time spent with patient/coordination of care with other health professionals (mins): 15. Sepsis Event Evaluation Height, Weight, BMI Height: 5'2.00" Weight: 280lbs. 0.0oz. 127.496454zr; 52.92 BMI Method:Stated Exam Exam Patient acknowledged, consented, and participated in this virtual visit which was conducted using real time audio/video Vital Signs Date Time Temp Pulse Resp B/P (MAP) Pulse Ox O2 Delivery O2 Flow Rate FiO2 02/10/21 11:00 77 24 105/75 (85) 100 Mechanical Ventilator 30.00 02/10/21 10:48 79 22 100 25 02/10/21 10:46 80 113/80 02/10/21 10:00 86 20 113/80 (91) 98 Mechanical Ventilator 30.00 02/10/21 09:00 75 15 107/81 (90) 100 Mechanical Ventilator 30.00 02/10/21 08:01 97 Mechanical Ventilator 30 02/10/21 08:00 77 24 112/77 (89) 97 Mechanical Ventilator 30.00 02/10/21 07:09 74 20 100 30 02/10/21 07:00 75 02/10/21 07:00 75 14 90/65 (73) 100 Mechanical Ventilator 30.00 02/10/21 06:00 76 21 96/72 (80) 99 Mechanical Ventilator 30.00 02/10/21 06:00 76 123/71 02/10/21 05:00 75 27 123/71 (88) 100 Mechanical Ventilator 30.00 02/10/21 04:00 78 21 99/69 (79) 100 Mechanical Ventilator 30.00 02/10/21 04:00 99 Mechanical Ventilator 30 02/10/21 03:43 36.2 02/10/21 03:00 76 25 105/68 (80) 100 Mechanical Ventilator 30.00 02/10/21 02:55 76 25 100 30 02/10/21 02:00 76 22 100/72 (81) 100 Mechanical Ventilator 30.00 02/10/21 01:12 77 02/10/21 01:00 76 20 103/67 (79) 100 Mechanical Ventilator 30.00 02/10/21 00:51 78 103/65 02/10/21 00:00 79 21 103/71 (82) 100 Mechanical Ventilator 30.00 02/10/21 00:00 36.0 02/09/21 23:59 99 Mechanical Ventilator 30 02/09/21 23:00 90 28 103/72 (82) 98 Mechanical Ventilator 30.00 02/09/21 22:00 105 32 101/60 (74) 97 Mechanical Ventilator 30.00 02/09/21 21:07 73 23 99 30 02/09/21 21:00 71 20 98/59 (72) 98 Mechanical Ventilator 30.00 02/09/21 20:00 35.8 02/09/21 20:00 74 22 105/64 (78) 98 Mechanical Ventilator 30.00 02/09/21 20:00 98 Mechanical Ventilator 30 02/09/21 19:39 75 103/71 02/09/21 19:00 80 02/09/21 19:00 80 26 97/68 (78) 98 Mechanical Ventilator 30.00 02/09/21 18:14 91 29 99 30 02/09/21 18:00 85 27 102/62 (75) 98 Mechanical Ventilator 30.00 02/09/21 17:00 74 22 106/67 (80) 100 Mechanical Ventilator 30.00 02/09/21 16:00 76 26 103/66 (78) 100 Mechanical Ventilator 30.00 02/09/21 15:56 35.7 02/09/21 15:22 Mechanical Ventilator 30 02/09/21 15:04 75 24 99 30 02/09/21 15:00 75 25 98/69 (79) 99 Mechanical Ventilator 30.00 02/09/21 14:33 78 103/68 02/09/21 14:00 78 24 103/68 (80) 99 Mechanical Ventilator 30.00 02/09/21 13:00 89 02/09/21 13:00 90 19 94/67 (76) 97 Mechanical Ventilator 30.00 02/09/21 12:11 89 26 98 25 02/09/21 12:00 88 22 90/57 (68) 98 Mechanical Ventilator 30.00 02/09/21 12:00 Mechanical Ventilator 30 02/09/21 11:52 35.1 I & O 02/10/21 07:00 Intake Total 7170 ml Output Total 485 ml Balance 6685 ml Height & Weight Height: 5'2.00" Weight: 280lbs. 0.0oz. 127.515806cf; 52.92 BMI Method:Stated General Appearance: Other (sedated on ventilator) HEENT: Moist Mucous Membranes Neck: Full Range of Motion, Normal Inspection Respiratory: Lungs Clear, Decreased Breath Sounds Cardiovascular: Regular Rate, Rhythm Capillary Refill: Less Than 3 Seconds Gastrointestinal: normal bowel sounds Extremity: Non Tender, No Calf Tenderness, No Pedal Edema, Other (SCDs in place) Neurologic/Psychiatric: Other (sedated on ventilator) Skin: Normal Color, Warm/Dry Results Lab Laboratory Tests 02/09/21 03:44 02/10/21 04:20 Assessment/Plan Assessment/Plan See free text Critical Care: Ventilator Management Time spent on discussion(mins): 0 FRANCIE MIRANDA MD Feb 10, 2021 11:43
[2021-02-10] MEDS: NS IV 500 ML 500 ML IV SCH (14:04)
[2021-02-10] MEDS ORDERED: NS IV 1000 ML 1,000 ML IV ONE (14:45)
[2021-02-10] MEDS: RT-ALBUTEROL/IPRATROPIUM 3 ML (DUONEB) VIAL INH PRN (18:53)
[2021-02-10] MEDS: ROSUVASTATIN 20 MG (CRESTOR) TABLET PO SCH (20:19)
[2021-02-10] MEDS: traZODone 100 MG (DESYREL) TAB PO SCH (21:28)
[2021-02-11] VITALS (29 sets, daily range): BP systolic 93–158; BP diastolic 67–125
[2021-02-11] MEDS: inSUlin ASPART (NovoLOG) 1 UNIT/0.01 ML (CHARGE PER UNIT) SQ SCH ×4 (01:09→17:52)
[2021-02-11] MEDS: DexMEDEtomidine 250 ML DRIP 250 ML IV SCH ×5 (02:09→22:06)
[2021-02-11] MEDS: RT-ALBUTEROL/IPRATROPIUM 3 ML (DUONEB) VIAL INH SCH ×4 (02:36→22:35)
[2021-02-11 03:22] LABS: ABG PCO2 38 MMHG (35-45); ABG PO2 69 MMHG (79-93); ABG TCO2 18.8 MMOL/L (21.0-31.0)
[2021-02-11 03:23] LABS: ABG BASE EXCESS -7.8 MMOL/L (-2.5-2.5); ABG OXYGEN SATURATION 94 % (94-100)
[2021-02-11 03:24] LABS: ALLENS TEST YES-POS; INSPIRED O2 21%; VENTILATOR YES
[2021-02-11 03:25] LABS: ABG PH 7.29 (7.37-7.43); PATIENT TEMP 36
[2021-02-11] MEDS: DEXTROSE IV SCH ×2 (03:35)
[2021-02-11] MEDS: LORazepam INJ 2 MG/ML (ATIVAN) VIAL IVP PRN ×3 (03:35→20:22)
[2021-02-11] MEDS: SODIUM BICARBONATE IV SCH ×3 (03:35→11:30)
[2021-02-11 04:44] LABS: BASOPHILS % (AUTO) 0 % (0-10); EOSINOPHILS # (AUTO) 0.1 10^3/uL (0.0-0.3); EOSINOPHILS % (AUTO) 1 % (0-10); HEMATOCRIT 25 % (35-52); HEMOGLOBIN 7.3 g/dL (11.5-16.0); LYMPHOCYTES # (AUTO) 0.5 X 10^3 (1.0-4.0); LYMPHOCYTES % (AUTO) 5 % (12-44); MEAN CORPUSCULAR HEMOGLOBIN 26 pg (25-34); MEAN CORPUSCULAR HGB CONC 30 g/dL (32-36); MEAN CORPUSCULAR VOLUME 89 fL (80-99); MEAN PLATELET VOLUME 10.8 fL (9.0-12.2); MONOCYTES # (AUTO) 0.3 X 10^3 (0.0-1.0); MONOCYTES % (AUTO) 4 % (0-12); NEUTROPHILS # (AUTO) 7.8 X 10^3 (1.8-7.8); NEUTROPHILS % (AUTO) 83 % (42-75); PLATELET COUNT 241 10^3/uL (130-400); WHITE BLOOD COUNT 9.4 10^3/uL (4.3-11.0)
[2021-02-11] MEDS ORDERED: MEROPENEM 500 MG VIAL (MERREM) IV ONE (04:54)
[2021-02-11] MEDS ORDERED: WATER (STERILE) FOR INJECTION 10 ML ONE (04:55)
[2021-02-11] MEDS: MEROPENEM 500 MG/SWFI 10 ML IV PUSH IV SCH ×2 (04:56)
[2021-02-11] MEDS: NS IV 500 ML 500 ML IV SCH ×2 (04:57→21:41)
[2021-02-11] MEDS: fentaNYL DRIP PRE-MIX 250 ML IV SCH ×5 (04:58→23:17)
[2021-02-11 05:25] LABS: CALCIUM 7.4 MG/DL (8.5-10.1); CREATININE SERUM 1.89 MG/DL (0.60-1.30); POTASSIUM 3.8 MMOL/L (3.6-5.0)
[2021-02-11] MEDS: POTASSIUM CL 10MEQ/50ML IVPB 50 ML IV SCH (05:57)
[2021-02-11] MEDS: KCL 20 MEQ TAB (K-DUR) PO SCH (05:57)
[2021-02-11] MEDS: MAGNESIUM 1 GM/100 ML IVPB 100 ML IV SCH (05:57)
[2021-02-11] MEDS: fentaNYL PATCH 25 MCG (DURAGESIC) TD SCH (08:08)
[2021-02-11] MEDS: PANTOPRAZOLE 40 MG (PROTONIX) VIAL IV SCH ×2 (08:08→20:16)
[2021-02-11] MEDS: FLUCONAZOLE 100 MG/50 ML 50 ML IV SCH (08:08)
[2021-02-11] MEDS: FENTANYL PATCH REMOVAL TP SCH (08:08)
--- NOTE | 2021-02-11 08:35 | Cardiology Progress Note ---
Progress Note-Cardiology Events since last exam Date Seen by Provider: Feb 11, 2021 Time Seen by Provider: 08:33 Events since last exam We had been seeing her due to possible NSTEMI. She failed the weaning trial y day. Her and the patient have decided to probably move forward with palliative extubation tomorrow. Given this, cardiology will sign off. Please call if you have other questions or concerns. Vitals Last set of Vitals Signs Vital Signs 02/11/21 02/11/21 07:17 08:00 Temp 35.0 Pulse 80 Resp 18 B/P (MAP) 117/80 (92) Pulse Ox 96 O2 Delivery Mechanical Ventilator O2 Flow Rate 21.00 FiO2 21 Labs Labs Laboratory Tests 02/11/21 04:30 Exam Vital Signs Vital Signs Date Time Temp Pulse Resp B/P (MAP) Pulse Ox O2 Delivery O2 Flow Rate FiO2 02/11/21 08:00 80 18 117/80 (92) 96 Mechanical Ventilator 21.00 02/11/21 08:00 35.0 02/11/21 07:17 21 Labs Laboratory Tests Test 02/10/21 11:36 02/10/21 16:14 02/10/21 17:37 02/11/21 01:02 Range/Units Glucometer 148 H 155 H 133 H 70-110 MG/DL Albumin 2.1 L 3.2-4.5 GM/DL Test 02/11/21 03:08 02/11/21 04:30 Range/Units Blood Gas Puncture Site LEFT RAD Blood Gas Patient Temperature 36 Arterial Blood pH 7.29 *L 7.37-7.43 Arterial Blood Partial Pressure CO2 38 35-45 MMHG Arterial Blood Partial Pressure O2 69 L 79-93 MMHG Arterial Blood HCO3 18 L 23-27 MMOL/L Arterial Blood Total CO2 18.8 L 21.0-31.0 MMOL/L Arterial Blood Oxygen Saturation 94 94-100 % Arterial Blood Base Excess -7.8 L -2.5-2.5 MMOL/L Denilson Test YES-POS Blood Gas Ventilator Setting YES Blood Gas Inspired Oxygen 21% White Blood Count 9.4 4.3-11.0 10^3/uL Red Blood Count 2.78 L 3.80-5.11 10^6/uL Hemoglobin 7.3 L 11.5-16.0 g/dL Hematocrit 25 L 35-52 % Mean Corpuscular Volume 89 80-99 fL Mean Corpuscular Hemoglobin 26 25-34 pg Mean Corpuscular Hemoglobin Concent 30 L 32-36 g/dL Red Cell Distribution Width 26.5 H 10.0-14.5 % Platelet Count 241 130-400 10^3/uL Mean Platelet Volume 10.8 9.0-12.2 fL Immature Granulocyte % (Auto) 7 % Neutrophils (%) (Auto) 83 H 42-75 % Lymphocytes (%) (Auto) 5 L 12-44 % Monocytes (%) (Auto) 4 0-12 % Eosinophils (%) (Auto) 1 0-10 % Basophils (%) (Auto) 0 0-10 % Neutrophils # (Auto) 7.8 1.8-7.8 X 10^3 Lymphocytes # (Auto) 0.5 L 1.0-4.0 X 10^3 Monocytes # (Auto) 0.3 0.0-1.0 X 10^3 Eosinophils # (Auto) 0.1 0.0-0.3 10^3/uL Basophils # (Auto) 0.0 0.0-0.1 10^3/uL Immature Granulocyte # (Auto) 0.7 H 0.0-0.1 10^3/uL Sodium Level 138 135-145 MMOL/L Potassium Level 3.8 3.6-5.0 MMOL/L Chloride Level 110 H 98-107 MMOL/L Carbon Dioxide Level 18 L 21-32 MMOL/L Anion Gap 10 5-14 MMOL/L Blood Urea Nitrogen 52 H 7-18 MG/DL Creatinine 1.89 H 0.60-1.30 MG/DL Estimat Glomerular Filtration Rate 30 BUN/Creatinine Ratio 28 Glucose Level 123 H 70-105 MG/DL Calcium Level 7.4 L 8.5-10.1 MG/DL Magnesium Level 2.0 1.6-2.4 MG/DL Diagnosis/Problems Diagnosis/Problems (1) Troponin level elevated Assessment & Plan: As above, following the failed weaning trial on 02/10, the patient and her are likely going to proceed with palliative extubation tomorrow. As such, cardiology will sign off. Please call if you have other questions or concerns. ENOC LAWSON JR, MD Feb 11, 2021 08:35
[2021-02-11] MEDS ORDERED: FUROSEMIDE 40 MG/4 ML INJ (LASIX) IVP ONE (09:00)
[2021-02-11] MEDS ORDERED: ALBUMIN 25% 25 GM/100 ML 50 ML IV ONE (09:00)
--- NOTE | 2021-02-11 09:22 | Progress Note ---
Subjective Date Seen by a Provider: Feb 11, 2021 Time Seen by a Provider: 09:15 Subjective/Events-last exam Fwup acute respiratory failure--vent dependent, acute on chronic renal failure, Morbid obesity with hypoventilation syndrome, underlyging neurological condition, Acute on Chronic Anemia, HTN, DMII with hyperglycemia, NSTEMI. at bedside. Patient is responding to voice with shaking head yes and no. Objective Exam Vital Signs Date Time Temp Pulse Resp B/P (MAP) Pulse Ox O2 Delivery O2 Flow Rate FiO2 02/11/21 08:00 80 18 117/80 (92) 96 Mechanical Ventilator 21.00 02/11/21 08:00 35.0 02/11/21 07:34 80 114/76 02/11/21 07:17 74 26 95 21 02/11/21 07:00 74 02/11/21 07:00 69 21 118/79 (92) 95 Mechanical Ventilator 21.00 02/11/21 06:00 70 15 110/76 (87) 95 Mechanical Ventilator 21.00 02/11/21 05:00 87 16 158/125 (136) 93 Mechanical Ventilator 21.00 02/11/21 04:00 95 Mechanical Ventilator 21 02/11/21 04:00 87 26 120/75 (90) 94 Mechanical Ventilator 21.00 02/11/21 03:07 36.0 02/11/21 03:00 81 20 106/71 (83) 95 Mechanical Ventilator 21.00 02/11/21 02:40 75 26 95 21 02/11/21 02:09 71 93/68 02/11/21 02:00 71 19 93/68 (76) 96 Mechanical Ventilator 21.00 02/11/21 01:05 35.5 02/11/21 01:00 70 02/11/21 00:00 73 17 94/67 (76) 97 Mechanical Ventilator 21.00 02/10/21 23:59 95 Mechanical Ventilator 21 02/10/21 23:00 76 18 98/71 (80) 95 Mechanical Ventilator 21.00 02/10/21 22:33 86 35 94 25 02/10/21 22:00 74 21 92/66 (75) 97 Mechanical Ventilator 21.00 02/10/21 21:28 76 91/68 02/10/21 21:00 76 21 94/73 (80) 97 Mechanical Ventilator 21.00 02/10/21 20:00 82 36 99/74 (82) 96 Mechanical Ventilator 21.00 02/10/21 20:00 96 Mechanical Ventilator 21 02/10/21 19:31 35.2 02/10/21 19:28 99 Mechanical Ventilator 21.00 02/10/21 19:00 87 27 105/71 (82) 100 Mechanical Ventilator 21.00 02/10/21 19:00 87 02/10/21 18:53 86 26 100 25 02/10/21 18:28 36.0 02/10/21 18:00 110 24 107/74 (85) 96 Mechanical Ventilator 30.00 02/10/21 17:00 88 21 102/75 (84) 100 Mechanical Ventilator 30.00 02/10/21 16:41 92 107/72 02/10/21 16:00 105 14 107/73 (84) 98 Mechanical Ventilator 30.00 02/10/21 16:00 100 Mechanical Ventilator 30 02/10/21 15:00 82 7 121/87 (98) 100 Mechanical Ventilator 30.00 02/10/21 14:55 82 39 100 30 02/10/21 14:00 87 15 143/74 (97) 100 Mechanical Ventilator 30.00 02/10/21 13:00 69 02/10/21 13:00 78 19 145/71 (95) 99 Mechanical Ventilator 30.00 02/10/21 12:49 30.1 02/10/21 12:00 68 15 97/72 (80) 99 Mechanical Ventilator 30.00 02/10/21 12:00 100 Mechanical Ventilator 30 02/10/21 11:00 77 24 105/75 (85) 100 Mechanical Ventilator 30.00 02/10/21 10:48 79 22 100 25 02/10/21 10:46 80 113/80 02/10/21 10:00 86 20 113/80 (91) 98 Mechanical Ventilator 30.00 I & O 02/11/21 07:00 Intake Total 6810 ml Output Total 1400 ml Balance 5410 ml Capillary Refill : Less Than 3 Seconds General Appearance: No Apparent Distress Respiratory: Decreased Breath Sounds, Rales Cardiovascular: Regular Rate, Rhythm Gastrointestinal: normal bowel sounds, soft Extremity: Calf Tenderness, Pedal Edema Neurologic/Psychiatric: Other (on ventilator with decreased sedation so is answering questions with shake of head) Results Lab Laboratory Tests 02/10/21 11:36: Glucometer 148H 02/10/21 16:14: Albumin 2.1L 02/10/21 17:37: Glucometer 155H 02/11/21 01:02: Glucometer 133H 02/11/21 03:08: Blood Gas Puncture Site LEFT RAD, Blood Gas Patient Temperature 36, Arterial Blood pH 7.29*L, Arterial Blood Partial Pressure CO2 38, Arterial Blood Partial Pressure O2 69L, Arterial Blood HCO3 18L, Arterial Blood Total CO2 18.8L, Arterial Blood Oxygen Saturation 94, Arterial Blood Base Excess -7.8L, Denilson Test YES-POS, Blood Gas Ventilator Setting YES, Blood Gas Inspired Oxygen 21% 02/11/21 04:30: White Blood Count 9.4, Red Blood Count 2.78L, Hemoglobin 7.3L, Hematocrit 25L, Mean Corpuscular Volume 89, Mean Corpuscular Hemoglobin 26, Mean Corpuscular Hemoglobin Concent 30L, Red Cell Distribution Width 26.5H, Platelet Count 241, Mean Platelet Volume 10.8, Immature Granulocyte % (Auto) 7, Neutrophils (%) (Auto) 83H, Lymphocytes (%) (Auto) 5L, Monocytes (%) (Auto) 4, Eosinophils (%) (Auto) 1, Basophils (%) (Auto) 0, Neutrophils # (Auto) 7.8, Lymphocytes # (Auto) 0.5L, Monocytes # (Auto) 0.3, Eosinophils # (Auto) 0.1, Basophils # (Auto) 0.0, Immature Granulocyte # (Auto) 0.7H, Sodium Level 138, Potassium Level 3.8, Chloride Level 110H, Carbon Dioxide Level 18L, Anion Gap 10, Blood Urea Nitrogen 52H, Creatinine 1.89H, Estimat Glomerular Filtration Rate 30, BUN/Creatinine Ratio 28, Glucose Level 123H, Calcium Level 7.4L, Magnesium Level 2.0 Microbiology 02/07/21 Blood Culture - Preliminary, Resulted No growth 02/05/21 Gram Stain - Final, Complete 02/05/21 Sputum Culture - Final, Complete Enterobacter cloacae complex YEAST Usual upper respiratory kapil 02/04/21 Urine Culture - Final, Complete YEAST Assessment/Plan Assessment/Plan Assess & Plan/Chief Complaint 1. Acute Respiratory Failure--still on ventilator but less sedation, family was wanting to do weaning trials and see how she does--she failed weaning trial yesterday 2. Acute on Chronic Renal Failure--Cr improved some after lasix yesterday, will repeat albumin and lasix today 3. Hypertension--stable 4. Probably underlying neurology condition but did not respond to IV steroids for possible MS and unable to do MRIs due to body habitus and unable to transfer to another hospital due to no bed availability 5. DMII with hyperglycemia--on accuchecks with SSI 6. Acute on Chronic Anemia--blood thinners on hold and monitoring H/H 7. Morbid Obesity with Hypoventilation Syndrome 8. NSTEMI--cardiology consulted with medical management 9. Pulmonary Edema--IV lasix today with albumin 10. Lower Extremity Edema/erythema--US of LEs in AM, lovenox has been on hold due to heme positive and anemia but will give 1 dose today and recheck H/H in AM Prognosis is very poor and /family is aware of this and have considered comfort care if patient does not improve this weekend INA MONK DO Feb 11, 2021 09:22
[2021-02-11] MEDS ORDERED: ENOXAPARIN 40 MG/0.4 ML (LOVENOX) SYR SC ONE (09:30)
--- NOTE | 2021-02-11 10:42 | Tele-ICU Progress Note ---
Subjective Date Seen by a Provider: Feb 11, 2021 Time Seen by a Provider: 10:42 Sepsis Event Evaluation Height, Weight, BMI Height: 5'2.00" Weight: 280lbs. 0.0oz. 127.895727zt; 52.92 BMI Method:Stated Exam Exam Patient acknowledged, consented, and participated in this virtual visit which was conducted using real time audio/video Vital Signs Date Time Temp Pulse Resp B/P (MAP) Pulse Ox O2 Delivery O2 Flow Rate FiO2 02/11/21 10:00 73 19 119/83 (95) 95 Mechanical Ventilator 21.00 02/11/21 09:00 76 24 114/86 (95) 94 Mechanical Ventilator 21.00 02/11/21 08:00 80 18 117/80 (92) 96 Mechanical Ventilator 21.00 02/11/21 08:00 35.0 02/11/21 07:34 80 114/76 02/11/21 07:17 74 26 95 21 02/11/21 07:00 74 02/11/21 07:00 69 21 118/79 (92) 95 Mechanical Ventilator 21.00 02/11/21 06:00 70 15 110/76 (87) 95 Mechanical Ventilator 21.00 02/11/21 05:00 87 16 158/125 (136) 93 Mechanical Ventilator 21.00 02/11/21 04:00 95 Mechanical Ventilator 21 02/11/21 04:00 87 26 120/75 (90) 94 Mechanical Ventilator 21.00 02/11/21 03:07 36.0 02/11/21 03:00 81 20 106/71 (83) 95 Mechanical Ventilator 21.00 02/11/21 02:40 75 26 95 21 02/11/21 02:09 71 93/68 02/11/21 02:00 71 19 93/68 (76) 96 Mechanical Ventilator 21.00 02/11/21 01:05 35.5 02/11/21 01:00 70 02/11/21 00:00 73 17 94/67 (76) 97 Mechanical Ventilator 21.00 02/10/21 23:59 95 Mechanical Ventilator 21 02/10/21 23:00 76 18 98/71 (80) 95 Mechanical Ventilator 21.00 02/10/21 22:33 86 35 94 25 02/10/21 22:00 74 21 92/66 (75) 97 Mechanical Ventilator 21.00 02/10/21 21:28 76 91/68 02/10/21 21:00 76 21 94/73 (80) 97 Mechanical Ventilator 21.00 02/10/21 20:00 82 36 99/74 (82) 96 Mechanical Ventilator 21.00 02/10/21 20:00 96 Mechanical Ventilator 21 02/10/21 19:31 35.2 02/10/21 19:28 99 Mechanical Ventilator 21.00 02/10/21 19:00 87 27 105/71 (82) 100 Mechanical Ventilator 21.00 02/10/21 19:00 87 02/10/21 18:53 86 26 100 25 02/10/21 18:28 36.0 02/10/21 18:00 110 24 107/74 (85) 96 Mechanical Ventilator 30.00 02/10/21 17:00 88 21 102/75 (84) 100 Mechanical Ventilator 30.00 02/10/21 16:41 92 107/72 02/10/21 16:00 105 14 107/73 (84) 98 Mechanical Ventilator 30.00 02/10/21 16:00 100 Mechanical Ventilator 30 02/10/21 15:00 82 7 121/87 (98) 100 Mechanical Ventilator 30.00 02/10/21 14:55 82 39 100 30 02/10/21 14:00 87 15 143/74 (97) 100 Mechanical Ventilator 30.00 02/10/21 13:00 69 02/10/21 13:00 78 19 145/71 (95) 99 Mechanical Ventilator 30.00 02/10/21 12:49 30.1 02/10/21 12:00 68 15 97/72 (80) 99 Mechanical Ventilator 30.00 02/10/21 12:00 100 Mechanical Ventilator 30 02/10/21 11:00 77 24 105/75 (85) 100 Mechanical Ventilator 30.00 02/10/21 10:48 79 22 100 25 02/10/21 10:46 80 113/80 I & O 02/11/21 06:59 Intake Total 6810 ml Output Total 1400 ml Balance 5410 ml Height & Weight Height: 5'2.00" Weight: 280lbs. 0.0oz. 127.277925ac; 52.92 BMI Method:Stated General Appearance: No Apparent Distress HEENT: Moist Mucous Membranes Neck: Full Range of Motion, Normal Inspection Respiratory: Decreased Breath Sounds, Rales Cardiovascular: Regular Rate, Rhythm Capillary Refill: Less Than 3 Seconds Gastrointestinal: normal bowel sounds, soft Extremity: Calf Tenderness, Pedal Edema Neurologic/Psychiatric: Other (on ventilator with decreased sedation so is answering questions with shake of head) Skin: Normal Color, Warm/Dry Results Lab Laboratory Tests 02/10/21 04:20 02/11/21 04:30 Assessment/Plan Assessment/Plan (Tele-ICU Physician , Progress Note ) Available chart/ vitals / labs / Images reviewed Video assessment done using teleICU camera, rest of exam as per RN Discussed with RN Events overnight : LOW GRADE FEVER RESOLVED - AFEBRILE TODAY hemodynamically stable, no pressors, I/O - POSITIVE 4 L Drips , precedex 1.5 prn fentanyl 150 ativan prn not used , bicarb 100 mEq @100, albumin boluses q 8 h As per RN exam : lungs clear , Consultants: cards VENT SETTINGS. AC rr 20 (sp 25) TV 420 ( 8 cc/kg) +5 21 % ABG reviewed ROS -1 - 0 SBT 02/04 - 10 mins - ? RR SBT 02/07 - at night - reportedly did well? settings A/P Acute resp failure ( on chronic ) hypoxic, hypercarbic - intubated 01/29 , cxr with elevted right diphragm- stable 02/07with rising CR - TRANSFUSED ALBUMIN AND BLOOD , ALONG WITH SOME NS -+ ENTEROBACTER in sputnm 02/05 --> ON merrem DAY 7 - ? stop tomottow - keep PEEP at 8 - she might benefit from trach as terapeutic approach JAMES - rising cr 02/07 - probably combination of diuresis and new infection - given volume expansion with albumin and pRBC ( 2 Units 02/07-02/08 - will cont gentle volume with bicarb - change bicarn GTT HCAP - vancomycin and cefepime FINISHED COURSE ( recent tx for sepsis - cellulitis (vancomycin 01/27 , finished cefepime 02/01 YEAST IN URINE AND SPUTUM - IN FACE OF STEROIDS - added FLUCONAZOLE 02/01 02/05 - ENTEROBACTER sputum - 02/06 - SENS TO MERREM - also has line 01/29 - reculture 02/07 AECOPD - OFF steroids Suspected MS - on steroids 500 MG BID - FINISHED 5 days course Acute on chronic diastolic heart failure -ECHO 01/08 - 55% , RVSP 20 mm type II non-STEMI - lovenox proph dose 01/29 Anemia - monitor - for now , w/up as per PCP (received 1 U PCBC 01/28 - resumed hep sq proph - Hb trending down , no bleeding , on Fe supplements -s/p transfusion 2 Units 02/07-02/08 for vilume expansion ( no active bleeding , HB 7.0) DMII - as per PCP - OFF STEROID , BETTER CONTROL Chronic hypoxia - VQ neg and LE US neg 01/09/21 an risk for HAILE /OHV Hypernatremis with diuresis - increase H20 on ng flushes , on d5w 02/08 Lines : R IJ 01/29 , (Central Line Necessity Reviewed) Hernandez: + OG: + Nutrition: add rerlan 02/11 Analgesia: fentanyl prn Anxiety/ delirium VTE Prophylaxis: hold lovenox 01/29 - resume proph 01/30 Stress Ulcer Prophylaxis: PPI Glycemic Control: poor Plans in collaboration with bedside consultants and IM MDs. Discussed with RN to reach out if any questions or concerns A total of 40 minutes of critical care time was devoted to this patient today, required to treat and/or prevent further deterioration of critical care condition ( as above ) . NOÉ CAO MD Feb 11, 2021 10:42
[2021-02-11] MEDS: METOCLOPRAMIDE INJ 10 MG/2 ML (REGLAN) IVP PRN ×4 (10:48→22:06)
[2021-02-11] MEDS: fentaNYL INJ 100 MCG/2 ML AMP IVP PRN (10:53)
[2021-02-11] MEDS ORDERED: FUROSEMIDE 40 MG/4 ML INJ (LASIX) ONE (11:28)
[2021-02-11] MEDS: D5 LR IV SCH (11:30)
[2021-02-11] MEDS: ALBUMIN 25% 25 GM/100 ML 50 ML IV SCH ×2 (13:46→21:41)
[2021-02-11] MEDS: ROSUVASTATIN 20 MG (CRESTOR) TABLET PO SCH (20:16)
[2021-02-11] MEDS: traZODone 100 MG (DESYREL) TAB PO SCH (21:16)
[2021-02-12] VITALS (30 sets, daily range): BP systolic 109–191; BP diastolic 62–144
[2021-02-12] MEDS: inSUlin ASPART (NovoLOG) 1 UNIT/0.01 ML (CHARGE PER UNIT) SQ SCH ×4 (00:32→17:15)
[2021-02-12] MEDS: RT-ALBUTEROL/IPRATROPIUM 3 ML (DUONEB) VIAL INH SCH ×4 (02:24→20:03)
[2021-02-12] MEDS ORDERED: D5 LR IV SOLUTION 1,000 ML IV ONE (02:54)
[2021-02-12] MEDS ORDERED: SODIUM BICARB 8.4% 50 MEQ/50 ML (ABBOTT) SYR ONE (02:54)
[2021-02-12] MEDS: SODIUM BICARBONATE IV SCH ×2 (02:59→16:46)
[2021-02-12] MEDS: D5 LR IV SCH ×2 (02:59→16:46)
[2021-02-12 03:36] LABS: ABG BASE EXCESS -4.6 MMOL/L (-2.5-2.5); ABG OXYGEN SATURATION 84 % (94-100); ABG PCO2 37 MMHG (35-45); ABG PH 7.35 (7.37-7.43); ABG PO2 49 MMHG (79-93); ABG TCO2 21.5 MMOL/L (21.0-31.0)
[2021-02-12 03:41] LABS: ALLENS TEST NO
[2021-02-12 03:42] LABS: INSPIRED O2 25%; PATIENT TEMP 35.7; VENTILATOR YES
[2021-02-12] MEDS: DexMEDEtomidine 250 ML DRIP 250 ML IV SCH ×5 (04:15→20:59)
[2021-02-12] MEDS: fentaNYL DRIP PRE-MIX 250 ML IV SCH ×5 (04:15→21:00)
[2021-02-12 05:02] LABS: CREATININE SERUM 1.78 MG/DL (0.60-1.30)
[2021-02-12 05:05] LABS: MAGNESIUM 1.9 MG/DL (1.6-2.4)
[2021-02-12 05:24] LABS: BASOPHILS % (AUTO) 0 % (0-10); EOSINOPHILS # (AUTO) 0.1 10^3/uL (0.0-0.3); EOSINOPHILS % (AUTO) 1 % (0-10); HEMATOCRIT 24 % (35-52); LYMPHOCYTES # (AUTO) 0.6 10^3/uL (1.0-4.0); LYMPHOCYTES % (AUTO) 6 % (12-44); MEAN CORPUSCULAR HEMOGLOBIN 26 pg (25-34); MEAN CORPUSCULAR HGB CONC 29 g/dL (32-36); MEAN CORPUSCULAR VOLUME 90 fL (80-99); MEAN PLATELET VOLUME 10.8 fL (9.0-12.2); MONOCYTES # (AUTO) 0.3 10^3/uL (0.0-1.0); MONOCYTES % (AUTO) 3 % (0-12); NEUTROPHILS # (AUTO) 8.8 10^3/uL (1.8-7.8); NEUTROPHILS % (AUTO) 84 % (42-75); PLATELET COUNT 241 10^3/uL (130-400); WHITE BLOOD COUNT 10.6 10^3/uL (4.3-11.0)
[2021-02-12 05:29] LABS: POTASSIUM 3.7 MMOL/L (3.6-5.0)
[2021-02-12 05:30] LABS: CALCIUM 7.7 MG/DL (8.5-10.1)
[2021-02-12] MEDS: KCL 20 MEQ TAB (K-DUR) PO SCH (05:31)
[2021-02-12] MEDS: POTASSIUM CL 10MEQ/50ML IVPB 50 ML IV SCH (05:31)
[2021-02-12 05:37] LABS: BAND NEUTROPHILS 3 %; EOSINOPHILS % (MANUAL) 1 %; LYMPHOCYTES % (MANUAL) 5 %; METAMYELOCYTES % 1 %; MONOCYTES % (MANUAL) 5 %; NEUTROPHILS % (MANUAL) 85 %
[2021-02-12] MEDS: MAGNESIUM 1 GM/100 ML IVPB 100 ML IV SCH (06:02)
--- NOTE | 2021-02-12 06:53 | Occ Therapy Progress Note ---
Therapy Progress Note Pt is currently intubated. OT will continue to monitor pt and initiate therapy when pt is more medically stable and able to actively participate in skilled therapy. KENJI DELANEY Feb 12, 2021 06:53
[2021-02-12] MEDS: ALBUMIN 25% 25 GM/100 ML 50 ML IV SCH ×3 (06:58→22:41)
--- NOTE | 2021-02-12 07:46 | Diagnostic Imaging Report ---
EXAM: CHEST 1 VIEW, AP/PA ONLY INDICATION: Respiratory failure. COMPARISON: Chest radiograph 02/10/2021. FINDINGS: ETT tip at the level of the clavicles. Right IJ CVC tip mid SVC. Low lung volumes and elevation of the right hemidiaphragm. Dense airspace consolidation in the perihilar right lung. This is similar to the prior. No large pleural effusion or pneumothorax. No acute osseous findings. IMPRESSION: 1. Support lines in expected positions. 2. Dense consolidation in the perihilar right lung is similar to the prior exam. Stable elevation of the right hemidiaphragm. Dictated by: Dictated on workstation # [id number]
--- NOTE | 2021-02-12 07:56 | Physical Therapy Progress Note ---
Therapy Progress Note Pt is currently intubated. PT will continue to monitor pt and initiate therapy when pt is more medically stable and able to actively participate in skilled therapy. DIPIKA ZHANG PT Feb 12, 2021 07:56
[2021-02-12] MEDS: PANTOPRAZOLE 40 MG (PROTONIX) VIAL IV SCH ×2 (08:22→20:53)
[2021-02-12] MEDS: FLUCONAZOLE 100 MG/50 ML 50 ML IV SCH (08:23)
--- NOTE | 2021-02-12 08:43 | Tele-ICU Progress Note ---
Subjective Date Seen by a Provider: Feb 12, 2021 Time Seen by a Provider: 08:42 Sepsis Event Evaluation Height, Weight, BMI Height: 5'2.00" Weight: 280lbs. 0.0oz. 127.031412xw; 52.92 BMI Method:Stated Exam Exam Patient acknowledged, consented, and participated in this virtual visit which was conducted using real time audio/video Vital Signs Date Time Temp Pulse Resp B/P (MAP) Pulse Ox O2 Delivery O2 Flow Rate FiO2 02/12/21 08:22 82 129/84 02/12/21 08:00 35.5 02/12/21 07:05 82 22 98 25 02/12/21 06:00 84 11 119/82 (94) 98 Mechanical Ventilator 25.00 02/12/21 05:00 85 28 120/87 (98) 93 Mechanical Ventilator 25.00 02/12/21 04:15 80 110/86 02/12/21 04:00 85 26 112/79 (90) 93 Mechanical Ventilator 25.00 02/12/21 04:00 99 Mechanical Ventilator 25 02/12/21 03:37 35.7 02/12/21 03:00 92 25 116/85 (95) 96 Mechanical Ventilator 25.00 02/12/21 02:24 80 30 98 25 02/12/21 02:00 78 24 113/84 (94) 98 Mechanical Ventilator 25.00 02/12/21 01:00 85 02/12/21 01:00 85 18 118/87 (97) 95 Mechanical Ventilator 25.00 02/12/21 00:00 35.8 02/12/21 00:00 112 36 157/99 (118) 93 Mechanical Ventilator 25.00 02/11/21 23:59 98 Mechanical Ventilator 25 02/11/21 23:00 78 21 109/77 (88) 98 Mechanical Ventilator 25.00 02/11/21 22:35 74 24 100 25 02/11/21 22:06 71 110/77 02/11/21 22:00 74 24 110/77 (88) 100 Mechanical Ventilator 25.00 02/11/21 21:00 73 19 125/87 (100) 100 Mechanical Ventilator 25.00 02/11/21 20:00 35.9 02/11/21 20:00 80 23 136/92 (107) 98 Mechanical Ventilator 25.00 02/11/21 20:00 99 Mechanical Ventilator 25 8/1/21 19:02 87 38 100 25 02/11/21 19:00 90 28 146/102 (117) 96 Mechanical Ventilator 25.00 02/11/21 19:00 90 02/11/21 18:00 93 35 141/92 (108) 96 Mechanical Ventilator 25.00 02/11/21 17:19 84 136/86 02/11/21 17:00 84 26 136/92 (107) 95 Mechanical Ventilator 25.00 02/11/21 16:30 95 Mechanical Ventilator 25 02/11/21 16:29 36.5 02/11/21 16:00 95 34 147/93 (111) 94 Mechanical Ventilator 25.00 02/11/21 15:00 100 24 129/87 (101) 95 Mechanical Ventilator 25.00 02/11/21 14:22 82 33 97 25 02/11/21 14:00 76 25 118/81 (93) 96 Mechanical Ventilator 25.00 02/11/21 13:00 81 123/81 (95) 97 Mechanical Ventilator 25.00 02/11/21 12:54 89 02/11/21 12:18 90 121/84 02/11/21 12:00 91 20 121/84 (96) 95 Mechanical Ventilator 25.00 02/11/21 11:34 96 Mechanical Ventilator 25 02/11/21 11:00 81 27 114/73 (87) 95 Mechanical Ventilator 25.00 02/11/21 10:58 80 27 95 25 02/11/21 10:54 Mechanical Ventilator 25.00 02/11/21 10:00 73 19 119/83 (95) 95 Mechanical Ventilator 21.00 02/11/21 09:00 76 24 114/86 (95) 94 Mechanical Ventilator 21.00 I & O 02/12/21 07:00 Intake Total 3590 ml Output Total 1525 ml Balance 2065 ml Height & Weight Height: 5'2.00" Weight: 280lbs. 0.0oz. 127.388238ic; 52.92 BMI Method:Stated General Appearance: No Apparent Distress HEENT: Moist Mucous Membranes Neck: Full Range of Motion, Normal Inspection Respiratory: Decreased Breath Sounds, Rales Cardiovascular: Regular Rate, Rhythm Capillary Refill: Less Than 3 Seconds Gastrointestinal: normal bowel sounds, soft Extremity: Calf Tenderness, Pedal Edema Neurologic/Psychiatric: Other (on ventilator with decreased sedation so is answering questions with shake of head) Skin: Normal Color, Warm/Dry Results Lab Laboratory Tests 02/11/21 04:30 02/12/21 04:35 Assessment/Plan Assessment/Plan (Tele-ICU Physician , Progress Note ) Available chart/ vitals / labs / Images reviewed Video assessment done using teleICU camera, rest of exam as per RN Discussed with RN Events overnight : LOW GRADE FEVER RESOLVED - AFEBRILE TODAY hemodynamically stable, no pressors, I/O - POSITIVE 2L Drips , precedex 1.5 prn fentanyl 150 ativan prn not used , bicarb 100 mEq @100, albumin boluses q 8 h As per RN exam : lungs clear , Consultants: cards VENT SETTINGS. AC rr 20 (sp 25) TV 420 ( 8 cc/kg) +5 21 % ABG reviewed ROS -1 - 0 SBT 02/04 - 10 mins - ? RR SBT 02/07 - at night - reportedly did well? settings A/P Acute resp failure ( on chronic ) hypoxic, hypercarbic - intubated 01/29 , cxr with elevted right diphragm- stable 02/07with rising CR - TRANSFUSED ALBUMIN AND BLOOD , ALONG WITH SOME NS - ENTEROBACTER in sputnm 02/05 --> ON merrem DAY 7 - ? stop tomottow - keep PEEP at 8 - she might benefit from trach as terapeutic approach JAMES - rising cr 02/07 - probably combination of diuresis and new infection - given volume expansion with albumin and pRBC ( 2 Units 02/07-02/08 0 and bicarb - IMPROVING - will cont gentle bicarb - change bicarn GTT to lower dose HCAP - vancomycin and cefepime FINISHED COURSE ( recent tx for sepsis - cellulitis (vancomycin 01/27 , finished cefepime 02/01 YEAST IN URINE AND SPUTUM - IN FACE OF STEROIDS - added FLUCONAZOLE 02/01 02/05 - ENTEROBACTER sputum - 02/06 - SENS TO MERREM - also has line 01/29 - reculture 02/07 AECOPD - OFF steroids Suspected MS - on steroids 500 MG BID - FINISHED 5 days course Acute on chronic diastolic heart failure -ECHO 01/08 - 55% , RVSP 20 mm type II non-STEMI - lovenox proph dose 01/29 Anemia - monitor - for now , w/up as per PCP (received 1 U PCBC 01/28 - resumed hep sq proph - Hb trending down , no bleeding , on Fe supplements -s/p transfusion 2 Units 02/07-02/08 for vilume expansion ( no active bleeding , HB 7.0 = probably delutionl now - will monitor DMII - as per PCP - OFF STEROID , BETTER CONTROL Chronic hypoxia - VQ neg and LE US neg 01/09/21 an risk for HAILE /OHV -US LE - 02/12 - pending Hypernatremis with diuresis - increase H20 on ng flushes , on d5w 02/08- Lines : R IJ 01/29 , (Central Line Necessity Reviewed) Hernandez: + OG: + Nutrition: add rerlan 02/11 Analgesia: fentanyl prn Anxiety/ delirium VTE Prophylaxis: hold lovenox 01/29 - resume proph 01/30- off with trnsfusions - NEED TO RESUME IF NO ACTIVE BLEEDING Stress Ulcer Prophylaxis: PPI Glycemic Control: poor GOALS OF CARE ARE BEING DISCUSSED BY PCP WITH FAMILY Plans in collaboration with bedside consultants and IM MDs. Discussed with RN to reach out if any questions or concerns A total of 40 minutes of critical care time was devoted to this patient today, required to treat and/or prevent further deterioration of critical care condition ( as above ) . NOÉ CAO MD Feb 12, 2021 08:43
--- NOTE | 2021-02-12 09:39 | Diagnostic Imaging Report ---
PROCEDURE: US Venous Lower Ext Kaveh. TECHNIQUE: Multiple real-time grayscale images were obtained over the lower extremities in various projections, bilaterally. Additional duplex Doppler and color Doppler images were also obtained. INDICATION: Hypoxia and lower extremity swelling and redness. FINDINGS: Overall quality study is limited due to patient large body habitus. Common femoral and the upper portion and midportion of the superficial femoral veins could not be evaluated due to patient large pannus. The lower superficial femoral veins are widely patent bilaterally. Popliteal veins are widely patent. Calf veins are unremarkable. No fluid collections are seen. IMPRESSION: Very limited study due to patient large body habitus. Lower superficial femoral veins, popliteal veins and calf veins appear to be widely patent. Dictated by: Dictated on workstation # [id number]
--- NOTE | 2021-02-12 12:53 | Progress Note ---
Subjective Subjective Date Seen by Provider: Feb 12, 2021 Time Seen by Provider: 12:50 Still intubated. Spoke with this AM- over the phone- he has talked with Miryam over the weekend by hand squeezes and head nods. Review of Systems ROS Unable to Obtain: intubated Neurological: Other All Other Systems Reviewed All Other Systems Reviewed: Yes Objective Exam Vital Signs Vital Signs Date Time Temp Pulse Resp B/P (MAP) Pulse Ox O2 Delivery O2 Flow Rate FiO2 02/12/21 12:44 85 139/95 02/12/21 12:14 35.9 02/12/21 11:41 Mechanical Ventilator 25 02/12/21 10:04 85 36 98 25 02/12/21 08:22 82 129/84 02/12/21 08:00 35.5 02/12/21 08:00 Mechanical Ventilator 25 02/12/21 07:05 82 22 98 25 02/12/21 07:00 81 02/12/21 06:00 84 11 119/82 (94) 98 Mechanical Ventilator 25.00 02/12/21 05:00 85 28 120/87 (98) 93 Mechanical Ventilator 25.00 02/12/21 04:15 80 110/86 02/12/21 04:00 85 26 112/79 (90) 93 Mechanical Ventilator 25.00 02/12/21 04:00 99 Mechanical Ventilator 25 02/12/21 03:37 35.7 02/12/21 03:00 92 25 116/85 (95) 96 Mechanical Ventilator 25.00 02/12/21 02:24 80 30 98 25 02/12/21 02:00 78 24 113/84 (94) 98 Mechanical Ventilator 25.00 02/12/21 01:00 85 02/12/21 01:00 85 18 118/87 (97) 95 Mechanical Ventilator 25.00 02/12/21 00:00 35.8 02/12/21 00:00 112 36 157/99 (118) 93 Mechanical Ventilator 25.00 02/11/21 23:59 98 Mechanical Ventilator 25 02/11/21 23:00 78 21 109/77 (88) 98 Mechanical Ventilator 25.00 02/11/21 22:35 74 24 100 25 02/11/21 22:06 71 110/77 02/11/21 22:00 74 24 110/77 (88) 100 Mechanical Ventilator 25.00 02/11/21 21:00 73 19 125/87 (100) 100 Mechanical Ventilator 25.00 02/11/21 20:00 35.9 02/11/21 20:00 80 23 136/92 (107) 98 Mechanical Ventilator 25.00 02/11/21 20:00 99 Mechanical Ventilator 25 02/11/21 19:02 87 38 100 25 02/11/21 19:00 90 28 146/102 (117) 96 Mechanical Ventilator 25.00 02/11/21 19:00 90 02/11/21 18:00 93 35 141/92 (108) 96 Mechanical Ventilator 25.00 02/11/21 17:19 84 136/86 02/11/21 17:00 84 26 136/92 (107) 95 Mechanical Ventilator 25.00 02/11/21 16:30 95 Mechanical Ventilator 25 02/11/21 16:29 36.5 02/11/21 16:00 95 34 147/93 (111) 94 Mechanical Ventilator 25.00 02/11/21 15:00 100 24 129/87 (101) 95 Mechanical Ventilator 25.00 02/11/21 14:22 82 33 97 25 02/11/21 14:00 76 25 118/81 (93) 96 Mechanical Ventilator 25.00 02/11/21 13:00 81 123/81 (95) 97 Mechanical Ventilator 25.00 02/11/21 12:54 89 I & O 02/12/21 07:00 Intake Total 3590 ml Output Total 1525 ml Balance 2065 ml General Appearance: No Apparent Distress Eyes: Bilateral Eye Normal Inspection, Bilateral Eye PERRL HEENT: Moist Mucous Membranes Neck: Full Range of Motion, Normal Inspection Respiratory: Decreased Breath Sounds, Rales Cardiovascular: Regular Rate, Rhythm Gastrointestinal: Normal Bowel Sounds Extremity: Calf Tenderness, Pedal Edema Neurologic/Psychiatric: Other (on ventilator with decreased sedation so is answering questions with shake of head) Skin: Normal Color, Warm/Dry Results Lab Laboratory Tests 02/11/21 17:38: Glucometer 83 02/12/21 00:30: Glucometer 95 02/12/21 03:25: Blood Gas Puncture Site LEFT RAD, Blood Gas Patient Temperature 35.7, Arterial Blood pH 7.35L, Arterial Blood Partial Pressure CO2 37, Arterial Blood Partial Pressure O2 49L, Arterial Blood HCO3 20L, Arterial Blood Total CO2 21.5, Arterial Blood Oxygen Saturation 84L, Arterial Blood Base Excess -4.6L, Denilson Test NO, Blood Gas Ventilator Setting YES, Blood Gas Inspired Oxygen 25% 02/12/21 04:35: White Blood Count 10.6, Red Blood Count 2.69L, Hemoglobin 7.0L, Hematocrit 24L, Mean Corpuscular Volume 90, Mean Corpuscular Hemoglobin 26, Mean Corpuscular Hemoglobin Concent 29L, Red Cell Distribution Width 26.2H, Platelet Count 241, Mean Platelet Volume 10.8, Immature Granulocyte % (Auto) 7, Neutrophils (%) (Auto) 84H, Lymphocytes (%) (Auto) 6L, Monocytes (%) (Auto) 3, Eosinophils (%) (Auto) 1, Basophils (%) (Auto) 0, Neutrophils # (Auto) 8.8H, Lymphocytes # (Auto) 0.6L, Monocytes # (Auto) 0.3, Eosinophils # (Auto) 0.1, Basophils # (Auto) 0.0, Immature Granulocyte # (Auto) 0.7H, Neutrophils % (Manual) 85, Lymphocytes % (Manual) 5, Monocytes % (Manual) 5, Eosinophils % (Manual) 1, Metamyelocytes % 1, Band Neutrophils 3, Sodium Level 143, Potassium Level 3.7, Chloride Level 111H, Carbon Dioxide Level 19L, Anion Gap 13, Blood Urea Nitrogen 50H, Creatinine 1.78H, Estimat Glomerular Filtration Rate 32, BUN/Creatinine Ratio 28, Glucose Level 88, Calcium Level 7.7L, Magnesium Level 1.9 02/12/21 11:43: Glucometer 69L Microbiology 02/07/21 Blood Culture - Preliminary, Resulted No growth 02/05/21 Gram Stain - Final, Complete 02/05/21 Sputum Culture - Final, Complete Enterobacter cloacae complex YEAST Usual upper respiratory kapil 02/04/21 Urine Culture - Final, Complete YEAST Assessment/Plan Assessment/Plan Assessment and Plan 02/01/21 Cr stable. Divaibhaving appreciate eICU, cardiology hgb stable- infusing Fe. -fluconazole added for yeast in sputum/urine. -finished cefepime 02/01/21 -stopped high dose steroids 02/01/21 (5 days) -sedation vacation- increased resp distress. 02/02/21- blood sugars still high- go up to sliding scale C- gave additional 10 units levemir once. updated that her kidneys were functioning well through this. -current issue is her respiratory status. continue as above 02/03/21- replacing potassium. Erhlichiosis pending. blood sugar improved. Updated father of patient at bedside. SBT a little better- SBT trial tomorrow. 02/04/21- continue with free water with OG tube. recheck Na level. Will see how SBT goes- possible extubation tomorrow depending on what decides- reasoning is Miryam would not want to be intubated. 02/05/21- spoke with eICU - spoke with patient's - they still do not want a trach. Awaking cultures from sputum. Continue with SBTs trials. Will keep discussing her care- ultimately though will go with 's decisions which do line up with what patient has said on last admission. Though her mental state does play a role- of being tired of dealing with her health problems. She would not like to be dependent on a trach or ventilator. 02/06/21- on meropenem to cover pna. Did not tolerate SBT today. UOP decreased. Cr elevated. appreciate eICU consult. erhlichiosis IgM elevated, IgG negative. Patient indicated she did not want to give up on and go on comfort care. 02/07/21- hgb still 7. Will order 2 units of pRBC with lasix in between units. Monitor UOP. Kidneys are in trouble. Pt has been given a couple NS boluses. recheck bmp in AM. 02/08/21- hgb up to 7.8, Creatinine above 2. Monitor I/O. eICU recommend trach. Continue daily SBTs. Treating gram neg pneumonia. 02/09/21- hgb about the same. Kidneys not better. IVF bolus given. Spoke with eICU and - likely patient will not get off the ventilator so putting a trach in likely will not change the outcome. I also spoke with patient today and when asked about trach she did not indicate she would want th at by her usual head nod. Same in regards to PEG tube. Will monitor over the weekend and if she has not made any improvement then likely comfort care. If she continues to have rectal bleeding and worsening of kidney failure- will go comfort care. 02/12/21- continue with SBTs. hgb 7. blood sugars running below 100. Decreased her qHS levemir from 30 to 20units. Getting albumin. Dispo: Prognosis- guarded/poor Problems: (1) Acute respiratory failure with hypoxia Assessment & Plan: supportive care- RT, oxygen, diuresing- (2) Disability due to neurological disorder Assessment & Plan: still unclear on etiology- erlichiosis panel positive IgM, negative IgG. Steroids did not help. - had signs of MS- oligoclonal bands- elevated on LP from last admission. Would be good to have an MRI of her head/neck but unable due to patient body habitus (3) Acute on chronic diastolic heart failure (4) Essential hypertension (5) Chronic kidney disease Qualifiers: (6) Obesity hypoventilation syndrome (7) Anemia of chronic disease (8) Morbid obesity (9) Type 2 diabetes mellitus with hyperglycemia (10) Positive serology for Erlichiosis Assessment & Plan: course of doxycycline (11) Acute on chronic renal failure (12) Pneumonia due to Enterobacter cloacae CHAZ ADLER MD Feb 12, 2021 12:53
[2021-02-12] MEDS: NS IV 500 ML 500 ML IV SCH (13:49)
[2021-02-12] MEDS ORDERED: D5 LR IV SOLUTION 1,000 ML IV SCH (15:00)
[2021-02-12] MEDS ORDERED: LACTATED RINGERS 1,000 ML IV ONE (15:00)
[2021-02-12] MEDS ORDERED: LACTATED RINGERS 1,000 ML IV SCH (18:45)
[2021-02-12] MEDS: traZODone 100 MG (DESYREL) TAB PO SCH (19:18)
[2021-02-12] MEDS: ROSUVASTATIN 20 MG (CRESTOR) TABLET PO SCH (20:53)
[2021-02-12] MEDS: LACTATED RINGERS 1,000 ML IV SCH (20:53)
[2021-02-13] VITALS (32 sets, daily range): BP systolic 116–193; BP diastolic 86–177
[2021-02-13] MEDS: inSUlin ASPART (NovoLOG) 1 UNIT/0.01 ML (CHARGE PER UNIT) SQ SCH ×4 (01:14→17:34)
[2021-02-13] MEDS: fentaNYL DRIP PRE-MIX 250 ML IV SCH ×5 (01:14→20:59)
[2021-02-13] MEDS: LACTATED RINGERS 1,000 ML IV SCH (02:24)
[2021-02-13] MEDS: DexMEDEtomidine 250 ML DRIP 250 ML IV SCH ×5 (02:24→20:59)
[2021-02-13] MEDS: RT-ALBUTEROL/IPRATROPIUM 3 ML (DUONEB) VIAL INH SCH ×4 (02:27→20:38)
[2021-02-13 04:32] LABS: BASOPHILS % (AUTO) 0 % (0-10); EOSINOPHILS % (AUTO) 0 % (0-10); HEMATOCRIT 25 % (35-52); HEMOGLOBIN 7.1 g/dL (11.5-16.0); LYMPHOCYTES # (AUTO) 0.6 10^3/uL (1.0-4.0); LYMPHOCYTES % (AUTO) 5 % (12-44); MEAN CORPUSCULAR HEMOGLOBIN 26 pg (25-34); MEAN CORPUSCULAR HGB CONC 29 g/dL (32-36); MEAN CORPUSCULAR VOLUME 91 fL (80-99); MEAN PLATELET VOLUME 10.6 fL (9.0-12.2); MONOCYTES # (AUTO) 0.3 10^3/uL (0.0-1.0); MONOCYTES % (AUTO) 3 % (0-12); NEUTROPHILS # (AUTO) 10.3 10^3/uL (1.8-7.8); NEUTROPHILS % (AUTO) 86 % (42-75); PLATELET COUNT 258 10^3/uL (130-400); WHITE BLOOD COUNT 11.9 10^3/uL (4.3-11.0)
[2021-02-13 04:42] LABS: ABG BASE EXCESS -2.6 MMOL/L (-2.5-2.5); ABG OXYGEN SATURATION 99 % (94-100); ABG PCO2 43 MMHG (35-45); ABG PO2 106 MMHG (79-93); ABG TCO2 23.6 MMOL/L (21.0-31.0); ALLENS TEST YES-POS; INSPIRED O2 25%; PATIENT TEMP 36.7; VENTILATOR YES
[2021-02-13 04:44] LABS: ABG PH 7.34 (7.37-7.43)
[2021-02-13 05:03] LABS: POTASSIUM 3.7 MMOL/L (3.6-5.0)
[2021-02-13] MEDS: MAGNESIUM 1 GM/100 ML IVPB 100 ML IV SCH (05:03)
[2021-02-13] MEDS: POTASSIUM CL 10MEQ/50ML IVPB 50 ML IV SCH (05:03)
[2021-02-13] MEDS: KCL 20 MEQ TAB (K-DUR) PO SCH (05:03)
[2021-02-13] MEDS: NS IV 500 ML 500 ML IV SCH ×2 (05:03→23:18)
[2021-02-13 05:04] LABS: CALCIUM 7.9 MG/DL (8.5-10.1)
[2021-02-13 05:09] LABS: CREATININE SERUM 1.58 MG/DL (0.60-1.30)
[2021-02-13 05:11] LABS: MAGNESIUM 1.9 MG/DL (1.6-2.4)
[2021-02-13] MEDS: ALBUMIN 25% 25 GM/100 ML 50 ML IV SCH ×3 (05:51→22:53)
--- NOTE | 2021-02-13 06:49 | Occ Therapy Progress Note ---
Therapy Progress Note Pt is currently intubated. OT will continue to monitor pt and initiate therapy when pt is more medically stable and able to actively participate in skilled therapy. KENJI DELANEY Feb 13, 2021 06:49
[2021-02-13] MEDS: SODIUM BICARBONATE IV SCH (07:28)
[2021-02-13] MEDS: D5 LR IV SCH (07:28)
[2021-02-13] MEDS: PANTOPRAZOLE 40 MG (PROTONIX) VIAL IV SCH ×2 (07:29→20:59)
--- NOTE | 2021-02-13 08:35 | Physical Therapy Progress Note ---
Therapy Progress Note Pt is currently intubated. PT will continue to monitor pt and initiate therapy when pt is more medically stable and able to actively participate in skilled therapy. DIPIKA ZHANG PT Feb 13, 2021 08:35
--- NOTE | 2021-02-13 09:38 | Tele-ICU Progress Note ---
Subjective Date Seen by a Provider: Feb 13, 2021 Time Seen by a Provider: 09:37 Sepsis Event Evaluation Height, Weight, BMI Height: 5'2.00" Weight: 280lbs. 0.0oz. 127.740433zb; 52.92 BMI Method:Stated Exam Exam Patient acknowledged, consented, and participated in this virtual visit which was conducted using real time audio/video Vital Signs Date Time Temp Pulse Resp B/P (MAP) Pulse Ox O2 Delivery O2 Flow Rate FiO2 02/13/21 09:04 90 27 93 25 02/13/21 07:44 36.5 02/13/21 06:15 80 21 139/106 (117) 96 Mechanical Ventilator 25.00 02/13/21 05:51 85 141/108 02/13/21 05:00 92 22 137/105 (116) 95 Mechanical Ventilator 25.00 02/13/21 04:00 82 22 125/91 (102) 96 Mechanical Ventilator 25.00 02/13/21 04:00 36.8 02/13/21 04:00 Mechanical Ventilator 25 02/13/21 03:00 90 21 118/93 (101) 94 Mechanical Ventilator 25.00 02/13/21 02:27 92 22 93 25 02/13/21 02:24 67 116/86 02/13/21 02:00 102 26 120/90 (100) 93 Mechanical Ventilator 25.00 02/13/21 01:00 84 02/13/21 01:00 84 121/95 (104) 97 Mechanical Ventilator 25.00 02/13/21 00:00 Mechanical Ventilator 25 02/13/21 00:00 67 22 116/86 (96) 97 Mechanical Ventilator 25.00 02/13/21 00:00 36.6 02/12/21 23:00 73 20 114/88 (97) 96 Mechanical Ventilator 25.00 02/12/21 22:24 74 21 95 25 02/12/21 22:00 79 22 135/97 (110) 96 Mechanical Ventilator 25.00 02/12/21 21:00 72 16 119/93 (102) 97 Mechanical Ventilator 25.00 02/12/21 20:59 72 112/83 02/12/21 20:03 72 20 96 25 02/12/21 20:00 71 16 114/88 (97) 93 Mechanical Ventilator 25.00 02/12/21 20:00 Mechanical Ventilator 25 02/12/21 20:00 35.6 02/12/21 19:00 82 16 120/81 (94) 95 Mechanical Ventilator 25.00 02/12/21 19:00 80 02/12/21 18:00 93 19 124/95 (105) 93 Mechanical Ventilator 25.00 02/12/21 17:00 81 27 124/91 (102) 95 Mechanical Ventilator 25.00 02/12/21 16:46 84 112/83 02/12/21 16:00 73 24 145/100 (115) 96 Mechanical Ventilator 25.00 02/12/21 15:27 Mechanical Ventilator 25 02/12/21 15:19 35.6 02/12/21 15:06 84 30 96 25 02/12/21 15:00 77 12 111/79 (90) 95 Mechanical Ventilator 25.00 02/12/21 14:00 85 15 116/80 (92) 97 Mechanical Ventilator 25.00 02/12/21 13:00 84 18 109/84 (92) 96 Mechanical Ventilator 25.00 02/12/21 13:00 88 02/12/21 12:44 85 139/95 02/12/21 12:14 35.9 02/12/21 12:00 74 21 127/82 (97) 97 Mechanical Ventilator 25.00 02/12/21 11:41 Mechanical Ventilator 25 02/12/21 11:00 75 25 191/144 (160) 99 Mechanical Ventilator 25.00 02/12/21 10:04 85 36 98 25 02/12/21 10:00 95 137/88 (104) 97 Mechanical Ventilator 25.00 I & O 02/13/21 07:00 Intake Total 5400 ml Output Total 750 ml Balance 4650 ml Height & Weight Height: 5'2.00" Weight: 280lbs. 0.0oz. 127.530979vg; 52.92 BMI Method:Stated General Appearance: No Apparent Distress HEENT: Moist Mucous Membranes Neck: Full Range of Motion, Normal Inspection Respiratory: Decreased Breath Sounds, Rales Cardiovascular: Regular Rate, Rhythm Capillary Refill: Less Than 3 Seconds Gastrointestinal: normal bowel sounds, soft Extremity: Calf Tenderness, Pedal Edema Neurologic/Psychiatric: Other (on ventilator with decreased sedation so is answering questions with shake of head) Skin: Normal Color, Warm/Dry Results Lab Laboratory Tests 02/12/21 04:35 02/13/21 04:11 Assessment/Plan Assessment/Plan (Tele-ICU Physician , Progress Note ) Available chart/ vitals / labs / Images reviewed Video assessment done using teleICU camera, rest of exam as per RN Discussed with RN Events overnight : LOW GRADE FEVER RESOLVED - AFEBRILE hemodynamically stable, no pressors, I/O - POSITIVE 2L Drips , precedex 1.5 prn fentanyl 300, ativan prn not used , albumin boluses q 8 h As per RN exam : lungs clear , Consultants: cards VENT SETTINGS. AC rr 20 (sp 25) TV 420 ( 8 cc/kg) +8 25 % ABG reviewed ROS -1 - 0 SBT 02/04 - 10 mins - ? RR SBT 02/07 - at night - reportedly did well? settings A/P Acute resp failure ( on chronic ) hypoxic, hypercarbic - intubated 01/29 , cxr with elevted right diphragm- stable - ENTEROBACTER in sputnm 02/05 --> ON merrem DAY 9- TO STOP - keep PEEP at 8 - she might benefit from trach as terapeutic approach - back to SBT today JAMES - rising cr 02/07 - probably combination of diuresis and new infection- IMPROVING - given volume expansion with albumin and pRBC ( 2 Units 02/07-02/08 and bicarb - IMPROVING - stop bicarn 02/13 HCAP - vancomycin and cefepime FINISHED COURSE ( recent tx for sepsis - cellulitis (vancomycin 01/27 , finished cefepime 02/01 YEAST IN URINE AND SPUTUM - IN FACE OF STEROIDS - added FLUCONAZOLE 02/01- 02/11 02/05 - ENTEROBACTER sputum - 02/06 - SENS TO MERREM- stopped 02/13 - also has line 01/29 - reculture 02/07- neg AECOPD - OFF steroids Suspected MS - on steroids 500 MG BID - FINISHED 5 days course Acute on chronic diastolic heart failure -ECHO 01/08 - 55% , RVSP 20 mm type II non-STEMI - lovenox proph dose 01/29 Anemia - monitor - for now , w/up as per PCP (received 1 U PCBC 01/28 - resumed hep sq proph - Hb trending down , no bleeding , on Fe supplements -s/p transfusion 2 Units 02/07-02/08 for volume expansion ( no active bleeding , HB 7.0 = probably delutionl now - will monitor DMII - as per PCP - OFF STEROID , BETTER CONTROL Chronic hypoxia - VQ neg and LE US neg 01/09/21 an risk for HAILE /OHV -US LE - 02/12 - grossly negative -CAN NOT DO AC WITH gib , ANEMIA - SURVELANCE US LE AND SCD FOR NOW Hypernatremis with diuresis - increase H20 on ng flushes , on d5w 02/08- DISCUSSED WITH RN TO WEAN OFF FENTALYL GTT ( ON FENTANYL PATCH , CAN USE PRN MEDS OG ) Lines : R IJ 01/29 , (Central Line Necessity Reviewed) Hernandez: + OG: + Nutrition: add rerlan 02/11 Analgesia: fentanyl prn Anxiety/ delirium VTE Prophylaxis: hold lovenox 01/29 - resume proph 01/30- off with trnsfusions - NEED TO RESUME IF NO ACTIVE BLEEDING Stress Ulcer Prophylaxis: PPI Glycemic Control: poor GOALS OF CARE ARE BEING DISCUSSED BY PCP WITH FAMILY Plans in collaboration with bedside consultants and IM MDs. Discussed with RN to reach out if any questions or concerns A total of 40 minutes of critical care time was devoted to this patient today, required to treat and/or prevent further deterioration of critical care condition ( as above ) . NOÉ CAO MD Feb 13, 2021 09:38
--- NOTE | 2021-02-13 12:55 | Progress Note ---
Subjective Subjective Date Seen by Provider: Feb 13, 2021 Time Seen by Provider: 12:53 Still intubated. Continues to answer questions with nods. Denies pain. at bedside Review of Systems ROS Unable to Obtain: intubated Neurological: Other All Other Systems Reviewed All Other Systems Reviewed: Yes Objective Exam Vital Signs Vital Signs Date Time Temp Pulse Resp B/P (MAP) Pulse Ox O2 Delivery O2 Flow Rate FiO2 02/13/21 12:24 90 165/124 02/13/21 12:14 Mechanical Ventilator 25 02/13/21 12:04 36.4 02/13/21 11:48 90 40 93 25 02/13/21 11:05 87 22 96 25 02/13/21 09:04 90 27 93 25 02/13/21 08:00 Mechanical Ventilator 25 02/13/21 07:44 36.5 02/13/21 07:00 75 02/13/21 06:15 80 21 139/106 (117) 96 Mechanical Ventilator 25.00 02/13/21 05:51 85 141/108 02/13/21 05:00 92 22 137/105 (116) 95 Mechanical Ventilator 25.00 02/13/21 04:00 82 22 125/91 (102) 96 Mechanical Ventilator 25.00 02/13/21 04:00 36.8 02/13/21 04:00 Mechanical Ventilator 25 02/13/21 03:00 90 21 118/93 (101) 94 Mechanical Ventilator 25.00 02/13/21 02:27 92 22 93 25 02/13/21 02:24 67 116/86 02/13/21 02:00 102 26 120/90 (100) 93 Mechanical Ventilator 25.00 02/13/21 01:00 84 02/13/21 01:00 84 121/95 (104) 97 Mechanical Ventilator 25.00 02/13/21 00:00 Mechanical Ventilator 25 02/13/21 00:00 67 22 116/86 (96) 97 Mechanical Ventilator 25.00 02/13/21 00:00 36.6 02/12/21 23:00 73 20 114/88 (97) 96 Mechanical Ventilator 25.00 02/12/21 22:24 74 21 95 25 02/12/21 22:00 79 22 135/97 (110) 96 Mechanical Ventilator 25.00 02/12/21 21:00 72 16 119/93 (102) 97 Mechanical Ventilator 25.00 02/12/21 20:59 72 112/83 02/12/21 20:03 72 20 96 25 02/12/21 20:00 71 16 114/88 (97) 93 Mechanical Ventilator 25.00 02/12/21 20:00 Mechanical Ventilator 25 02/12/21 20:00 35.6 02/12/21 19:00 82 16 120/81 (94) 95 Mechanical Ventilator 25.00 02/12/21 19:00 80 02/12/21 18:00 93 19 124/95 (105) 93 Mechanical Ventilator 25.00 02/12/21 17:00 81 27 124/91 (102) 95 Mechanical Ventilator 25.00 02/12/21 16:46 84 112/83 02/12/21 16:00 73 24 145/100 (115) 96 Mechanical Ventilator 25.00 02/12/21 15:27 Mechanical Ventilator 25 02/12/21 15:19 35.6 02/12/21 15:06 84 30 96 25 02/12/21 15:00 77 12 111/79 (90) 95 Mechanical Ventilator 25.00 02/12/21 14:00 85 15 116/80 (92) 97 Mechanical Ventilator 25.00 02/12/21 13:00 84 18 109/84 (92) 96 Mechanical Ventilator 25.00 02/12/21 13:00 88 I & O 02/13/21 07:00 Intake Total 5400 ml Output Total 750 ml Balance 4650 ml General Appearance: No Apparent Distress Eyes: Bilateral Eye Normal Inspection, Bilateral Eye PERRL HEENT: Moist Mucous Membranes Neck: Full Range of Motion, Normal Inspection Respiratory: Lungs Clear, Normal Breath Sounds, Decreased Breath Sounds; No Rales Cardiovascular: Regular Rate, Rhythm Gastrointestinal: Normal Bowel Sounds Rectal: Deferred Extremity: No Calf Tenderness; Pedal Edema Neurologic/Psychiatric: Alert, Other (on ventilator with decreased sedation so is answering questions with shake of head) Skin: Normal Color, Warm/Dry Results Lab Laboratory Tests 02/12/21 17:14: Glucometer 69L 02/12/21 21:02: Glucometer 68L 02/13/21 01:07: Glucometer 87 02/13/21 04:11: White Blood Count 11.9H, Red Blood Count 2.74L, Hemoglobin 7.1L, Hematocrit 25L, Mean Corpuscular Volume 91, Mean Corpuscular Hemoglobin 26, Mean Corpuscular Hemoglobin Concent 29L, Red Cell Distribution Width 26.1H, Platelet Count 258, Mean Platelet Volume 10.6, Immature Granulocyte % (Auto) 6, Neutrophils (%) (Auto) 86H, Lymphocytes (%) (Auto) 5L, Monocytes (%) (Auto) 3, Eosinophils (%) (Auto) 0, Basophils (%) (Auto) 0, Neutrophils # (Auto) 10.3H, Lymphocytes # (Auto) 0.6L, Monocytes # (Auto) 0.3, Eosinophils # (Auto) 0.0, Basophils # (Auto ) 0.0, Immature Granulocyte # (Auto) 0.8H, Sodium Level 144, Potassium Level 3.7, Chloride Level 111H, Carbon Dioxide Level 21, Anion Gap 12, Blood Urea Nitrogen 47H, Creatinine 1.58H, Estimat Glomerular Filtration Rate 37, BUN/Creatinine Ratio 30, Glucose Level 98, Calcium Level 7.9L, Magnesium Level 1.9 02/13/21 04:23: Blood Gas Puncture Site L RADIAL, Blood Gas Patient Temperature 36.7, Arterial Blood pH 7.34*L, Arterial Blood Partial Pressure CO2 43, Arterial Blood Partial Pressure O2 106H, Arterial Blood HCO3 22L, Arterial Blood Total CO2 23.6, Arterial Blood Oxygen Saturation 99, Arterial Blood Base Excess -2.6L, Denilson Test YES-POS, Blood Gas Ventilator Setting YES, Blood Gas Inspired Oxygen 25% 02/13/21 11:53: Glucometer 129H Microbiology 02/07/21 Blood Culture - Final, Complete No growth 02/05/21 Gram Stain - Final, Complete 02/05/21 Sputum Culture - Final, Complete Enterobacter cloacae complex YEAST Usual upper respiratory kaipl 02/04/21 Urine Culture - Final, Complete YEAST Assessment/Plan Assessment/Plan Assessment and Plan 02/01/21 Cr stable. Diuresing appreciate eICU, cardiology hgb stable- infusing Fe. -fluconazole added for yeast in sputum/urine. -finished cefepime 02/01/21 -stopped high dose steroids 02/01/21 (5 days) -sedation vacation- increased resp distress. 02/02/21- blood sugars still high- go up to sliding scale C- gave additional 10 units levemir once. updated that her kidneys were functioning well through this. -current issue is her respiratory status. continue as above 02/03/21- replacing potassium. Erhlichiosis pending. blood sugar improved. Updated father of patient at bedside. SBT a little better- SBT trial tomorrow. 02/04/21- continue with free water with OG tube. recheck Na level. Will see how SBT goes- possible extubation tomorrow depending on what decides- reasoning is Miryam would not want to be intubated. 02/05/21- spoke with eICU - spoke with patient's - they still do not want a trach. Awaking cultures from sputum. Continue with SBTs trials. Will keep discussing her care- ultimately though will go with 's decisions which do line up with what patient has said on last admission. Though her mental state does play a role- of being tired of dealing with her health problems. She would not like to be dependent on a trach or ventilator. 02/06/21- on meropenem to cover pna. Did not tolerate SBT today. UOP decreased. Cr elevated. appreciate eICU consult. erhlichiosis IgM elevated, IgG negative. Patient indicated she did not want to give up on and go on comfort care. 02/07/21- hgb still 7. Will order 2 units of pRBC with lasix in between units. Monitor UOP. Kidneys are in trouble. Pt has been given a couple NS boluses. recheck bmp in AM. 02/08/21- hgb up to 7.8, Creatinine above 2. Monitor I/O. eICU recommend trach. Continue daily SBTs. Treating gram neg pneumonia. 02/09/21- hgb about the same. Kidneys not better. IVF bolus given. Spoke with eICU and - likely patient will not get off the ventilator so putting a trach in likely will not change the outcome. I also spoke with patient today and when asked about trach she did not indicate she would want that by her usual head nod. Same in regards to PEG tube. Will monitor over the weekend and if she has not made any improvement then likely comfort care. If she continues to have rectal bleeding and worsening of kidney failure- will go comfort care. 02/12/21- continue with SBTs. hgb 7. blood sugars running below 100. Decreased her qHS levemir from 30 to 20units. Getting albumin. 02/13/21- bicarb ivf stopped per eICU. Hgb 7.1 restart lovenox. LE U/S from yesterday- limited study but lower veins- widely patent- no DVT. Patient did better with SBT- continue to do SBTs. Dispo: Prognosis- guarded/poor Problems: (1) Acute respiratory failure with hypoxia Assessment & Plan: supportive care- RT, oxygen, diuresing- (2) Disability due to neurological disorder Assessment & Plan: still unclear on etiology- erlichiosis panel positive IgM, negative IgG. Steroids did not help. - had signs of MS- oligoclonal bands- elevated on LP from last admission. Would be good to have an MRI of her hea d/neck but unable due to patient body habitus (3) Acute on chronic diastolic heart failure (4) Essential hypertension (5) Chronic kidney disease Qualifiers: (6) Obesity hypoventilation syndrome (7) Anemia of chronic disease (8) Morbid obesity (9) Type 2 diabetes mellitus with hyperglycemia (10) Positive serology for Erlichiosis Assessment & Plan: course of doxycycline (11) Acute on chronic renal failure (12) Pneumonia due to Enterobacter cloacae CHAZ ADLER MD Feb 13, 2021 12:55
[2021-02-13] MEDS: traZODone 100 MG (DESYREL) TAB PO SCH (20:59)
[2021-02-13] MEDS: ROSUVASTATIN 20 MG (CRESTOR) TABLET PO SCH (20:59)
[2021-02-13] MEDS: fentaNYL INJ 100 MCG/2 ML AMP IVP PRN (23:48)
[2021-02-14] VITALS (31 sets, daily range): BP systolic 113–186; BP diastolic 76–118
[2021-02-14] MEDS: inSUlin ASPART (NovoLOG) 1 UNIT/0.01 ML (CHARGE PER UNIT) SQ SCH ×5 (01:16→23:56)
[2021-02-14] MEDS: RT-ALBUTEROL/IPRATROPIUM 3 ML (DUONEB) VIAL INH SCH ×4 (02:31→21:21)
[2021-02-14 04:14] LABS: ABG BASE EXCESS -4.4 MMOL/L (-2.5-2.5); ABG OXYGEN SATURATION 99 % (94-100); ABG PCO2 37 MMHG (35-45); ABG PH 7.35 (7.37-7.43); ABG PO2 112 MMHG (79-93); ABG TCO2 21.6 MMOL/L (21.0-31.0); ALLENS TEST YES-POS; INSPIRED O2 25%; VENTILATOR YES
[2021-02-14 04:15] LABS: BASOPHILS % (AUTO) 0 % (0-10); EOSINOPHILS % (AUTO) 0 % (0-10); HEMATOCRIT 26 % (35-52); HEMOGLOBIN 7.4 g/dL (11.5-16.0); LYMPHOCYTES # (AUTO) 0.7 10^3/uL (1.0-4.0); LYMPHOCYTES % (AUTO) 5 % (12-44); MEAN CORPUSCULAR HEMOGLOBIN 26 pg (25-34); MEAN CORPUSCULAR HGB CONC 29 g/dL (32-36); MEAN CORPUSCULAR VOLUME 91 fL (80-99); MEAN PLATELET VOLUME 10.2 fL (9.0-12.2); MONOCYTES # (AUTO) 0.4 10^3/uL (0.0-1.0); MONOCYTES % (AUTO) 3 % (0-12); NEUTROPHILS # (AUTO) 11.8 10^3/uL (1.8-7.8); NEUTROPHILS % (AUTO) 86 % (42-75); PATIENT TEMP 36.4; PLATELET COUNT 249 10^3/uL (130-400); WHITE BLOOD COUNT 13.7 10^3/uL (4.3-11.0)
[2021-02-14 04:21] LABS: POTASSIUM 3.7 MMOL/L (3.6-5.0)
[2021-02-14 04:26] LABS: CREATININE SERUM 1.47 MG/DL (0.60-1.30)
[2021-02-14 04:29] LABS: MAGNESIUM 1.9 MG/DL (1.6-2.4)
[2021-02-14] MEDS: DexMEDEtomidine 250 ML DRIP 250 ML IV SCH ×5 (04:34→23:53)
[2021-02-14] MEDS: POTASSIUM CL 10MEQ/50ML IVPB 50 ML IV SCH (05:33)
[2021-02-14] MEDS: MAGNESIUM 1 GM/100 ML IVPB 100 ML IV SCH (05:33)
[2021-02-14] MEDS: KCL 20 MEQ TAB (K-DUR) PO SCH (05:33)
[2021-02-14] MEDS: fentaNYL DRIP PRE-MIX 250 ML IV SCH ×4 (06:27→23:53)
[2021-02-14] MEDS: ALBUMIN 25% 25 GM/100 ML 50 ML IV SCH ×3 (06:27→22:44)
--- NOTE | 2021-02-14 06:55 | Occ Therapy Progress Note ---
Therapy Progress Note Pt is currently intubated. OT will continue to monitor pt and initiate therapy when pt is more medically stable and able to actively participate in skilled therapy. KENJI DELANEY Feb 14, 2021 06:55
--- NOTE | 2021-02-14 07:52 | Physical Therapy Progress Note ---
Therapy Progress Note Pt is currently intubated. PT will continue to monitor pt and initiate therapy when pt is more medically stable and able to actively participate in skilled therapy. NIRMAL BELTRE PT Feb 14, 2021 07:52
--- NOTE | 2021-02-14 08:27 | Tele-ICU Progress Note ---
Subjective Date Seen by a Provider: Feb 14, 2021 Time Seen by a Provider: 10:30 Subjective/Events-last exam Tried on SBT yesterday 02/05, did fair, today 28/02, family not decided about trach On IV fentanyl, Precedex, PRN ativan on full anti-coagulation with d dimer down to 2.68 CXR shows large heart, bilateral infiltrates recent venous doppler poor quality but did not show obvious DVT Off decadron Sepsis Event Evaluation Height, Weight, BMI Height: 5'2.00" Weight: 280lbs. 0.0oz. [id number]; 52.92 BMI Method:Stated Exam Exam Patient acknowledged, consented, and participated in this virtual visit which was conducted using real time audio/video Vital Signs Date Time Temp Pulse Resp B/P (MAP) Pulse Ox O2 Delivery O2 Flow Rate FiO2 02/14/21 07:42 91 Mechanical Ventilator 25 02/14/21 07:30 36.3 02/14/21 07:20 78 27 92 30 02/14/21 06:00 73 30 126/87 (100) 92 Mechanical Ventilator 25.00 02/14/21 05:00 81 39 123/83 (96) 92 Mechanical Ventilator 25.00 02/14/21 04:34 129/81 02/14/21 04:23 Mechanical Ventilator 25 02/14/21 04:04 36.4 02/14/21 04:00 87 34 129/91 (104) 94 Mechanical Ventilator 25.00 02/14/21 03:00 75 124/85 (98) 96 Mechanical Ventilator 25.00 02/14/21 02:31 76 20 95 30 02/14/21 02:00 84 25 124/86 (99) 95 Mechanical Ventilator 25.00 02/14/21 01:00 84 02/14/21 01:00 84 15 131/97 (108) 95 Mechanical Ventilator 25.00 02/14/21 00:00 73 27 126/98 (107) 96 Mechanical Ventilator 25.00 02/14/21 00:00 Mechanical Ventilator 30 02/14/21 00:00 36.0 02/13/21 23:15 106 24 133/90 (104) 93 Mechanical Ventilator 25.00 02/13/21 22:00 87 144/101 (115) 94 Mechanical Ventilator 25.00 02/13/21 21:00 84 153/108 (123) 94 Mechanical Ventilator 25.00 02/13/21 20:59 87 155/107 02/13/21 20:32 87 28 92 30 02/13/21 20:10 96 47 92 25 02/13/21 20:00 79 154/105 (121) 94 Mechanical Ventilator 25.00 02/13/21 20:00 Mechanical Ventilator 25 02/13/21 19:39 36.4 02/13/21 19:00 78 157/116 (130) 93 Mechanical Ventilator 25.00 02/13/21 19:00 78 02/13/21 18:10 74 20 93 25 02/13/21 18:00 74 159/116 (130) 93 Mechanical Ventilator 25.00 02/13/21 17:00 74 148/109 (122) 93 Mechanical Ventilator 25.00 02/13/21 16:50 81 129/92 02/13/21 16:09 35.8 02/13/21 16:00 77 122/89 (100) 93 Mechanical Ventilator 25.00 02/13/21 15:55 Mechanical Ventilator 25 02/13/21 15:02 81 23 91 25 02/13/21 15:00 84 133/101 (112) 91 Mechanical Ventilator 25.00 02/13/21 14:00 110 126/92 (103) 92 Mechanical Ventilator 25.00 02/13/21 13:00 87 143/98 (113) 93 Mechanical Ventilator 25.00 02/13/21 13:00 95 02/13/21 12:24 90 165/124 02/13/21 12:14 Mechanical Ventilator 25 02/13/21 12:04 36.4 02/13/21 12:00 89 39 193/177 (182) 92 Mechanical Ventilator 25.00 02/13/21 11:48 90 40 93 25 02/13/21 11:05 87 22 96 25 02/13/21 11:00 97 31 165/124 (138) 96 Mechanical Ventilator 25.00 02/13/21 10:00 75 22 174/124 (141) 96 Mechanical Ventilator 25.00 02/13/21 09:04 90 27 93 25 02/13/21 09:00 87 21 145/112 (123) 96 Mechanical Ventilator 25.00 I & O 02/14/21 07:00 Intake Total 4550 ml Output Total 675 ml Balance 3875 ml Height & Weight Height: 5'2.00" Weight: 280lbs. 0.0oz. [id number]; 52.92 BMI Method:Stated General Appearance: No Apparent Distress HEENT: Moist Mucous Membranes Neck: Full Range of Motion, Normal Inspection Respiratory: Decreased Breath Sounds, Rales, Rhonci, Wheezing (wheezing RLL) Cardiovascular: Regular Rate, Rhythm Capillary Refill: Less Than 3 Seconds Gastrointestinal: normal bowel sounds, soft, other (abd wall is edematous, has gluteal and sacral wounds, no pus) Extremity: Calf Tenderness, Pedal Edema Neurologic/Psychiatric: Other (on ventilator with decreased sedation so is answering questions with shake of head) Skin: Normal Color, Warm/Dry Results Lab Laboratory Tests 02/13/21 04:11 02/14/21 04:03 Assessment/Plan Assessment/Plan multiple medical problems, obesity, , acute/chronic hypoxic resp failure will continue to try SBT but I think chance of weaning off vent is poor IDDM on Levimer 05/02, Aspart with glu running in 100's Elevated Cr 1.47, a little better than before ? of multiple sclerosis Await family decision on trach, continue present meds Critical Care: Critically Ill Patient Time spent with patient (mins): 30 RODRIGO EL MD Feb 14, 2021 08:27
[2021-02-14] MEDS: PANTOPRAZOLE 40 MG (PROTONIX) VIAL IV SCH ×2 (08:38→19:56)
[2021-02-14] MEDS: fentaNYL PATCH 25 MCG (DURAGESIC) TD SCH (08:38)
[2021-02-14] MEDS: FENTANYL PATCH REMOVAL TP SCH (08:38)
[2021-02-14] MEDS: ENOXAPARIN 60 MG/0.6 ML (LOVENOX) SYR SC SCH ×2 (08:42→19:57)
[2021-02-14] MEDS: LORazepam INJ 2 MG/ML (ATIVAN) VIAL IVP PRN ×2 (09:07→17:18)
--- NOTE | 2021-02-14 13:21 | Progress Note ---
Subjective Subjective Date Seen by Provider: Feb 14, 2021 Time Seen by Provider: 13:21 Still intubated. Did better on SBT yesterday. SBT to be done today. Patient not as awake today. Review of Systems ROS Unable to Obtain: intubated Neurological: Other All Other Systems Reviewed All Other Systems Reviewed: Yes Objective Exam Vital Signs Vital Signs Date Time Temp Pulse Resp B/P (MAP) Pulse Ox O2 Delivery O2 Flow Rate FiO2 02/14/21 12:00 80 22 127/86 (100) 93 Mechanical Ventilator 25.00 02/14/21 11:55 36.0 02/14/21 11:22 93 Mechanical Ventilator 25 02/14/21 11:01 85 26 94 30 02/14/21 11:00 76 24 119/76 (90) 93 Mechanical Ventilator 25.00 02/14/21 10:00 94 51 127/118 (121) 98 Mechanical Ventilator 25.00 02/14/21 09:00 87 135/87 (103) 92 Mechanical Ventilator 25.00 02/14/21 08:38 76 138/97 02/14/21 08:00 79 13 128/90 (103) 91 Mechanical Ventilator 25.00 02/14/21 07:42 91 Mechanical Ventilator 25 02/14/21 07:30 36.3 02/14/21 07:20 78 27 92 30 02/14/21 07:00 78 47 133/87 (102) 91 Mechanical Ventilator 25.00 02/14/21 06:00 73 30 126/87 (100) 92 Mechanical Ventilator 25.00 02/14/21 05:00 81 39 123/83 (96) 92 Mechanical Ventilator 25.00 02/14/21 04:34 129/81 02/14/21 04:23 Mechanical Ventilator 25 02/14/21 04:04 36.4 02/14/21 04:00 87 34 129/91 (104) 94 Mechanical Ventilator 25.00 02/14/21 03:00 75 124/85 (98) 96 Mechanical Ventilator 25.00 02/14/21 02:31 76 20 95 30 02/14/21 02:00 84 25 124/86 (99) 95 Mechanical Ventilator 25.00 02/14/21 01:00 84 02/14/21 01:00 84 15 131/97 (108) 95 Mechanical Ventilator 25.00 02/14/21 00:00 73 27 126/98 (107) 96 Mechanical Ventilator 25.00 02/14/21 00:00 Mechanical Ventilator 30 02/14/21 00:00 36.0 02/13/21 23:15 106 24 133/90 (104) 93 Mechanical Ventilator 25.00 02/13/21 22:00 87 144/101 (115) 94 Mechanical Ventilator 25.00 02/13/21 21:00 84 153/108 (123) 94 Mechanical Ventilator 25.00 02/13/21 20:59 87 155/107 02/13/21 20:32 87 28 92 30 02/13/21 20:10 96 47 92 25 02/13/21 20:00 79 154/105 (121) 94 Mechanical Ventilator 25.00 02/13/21 20:00 Mechanical Ventilator 25 02/13/21 19:39 36.4 02/13/21 19:00 78 157/116 (130) 93 Mechanical Ventilator 25.00 02/13/21 19:00 78 02/13/21 18:10 74 20 93 25 02/13/21 18:00 74 159/116 (130) 93 Mechanical Ventilator 25.00 02/13/21 17:00 74 148/109 (122) 93 Mechanical Ventilator 25.00 02/13/21 16:50 81 129/92 02/13/21 16:09 35.8 02/13/21 16:00 77 122/89 (100) 93 Mechanical Ventilator 25.00 02/13/21 15:55 Mechanical Ventilator 25 02/13/21 15:02 81 23 91 25 02/13/21 15:00 84 133/101 (112) 91 Mechanical Ventilator 25.00 02/13/21 14:00 110 126/92 (103) 92 Mechanical Ventilator 25.00 I & O 02/14/21 07:00 Intake Total 4550 ml Output Total 675 ml Balance 3875 ml General Appearance: No Apparent Distress Eyes: Bilateral Eye Normal Inspection, Bilateral Eye PERRL HEENT: Moist Mucous Membranes Neck: Full Range of Motion, Normal Inspection Respiratory: Decreased Breath Sounds, Rales, Rhonci Cardiovascular: Regular Rate, Rhythm Gastrointestinal: Normal Bowel Sounds Rectal: Deferred Extremity: Calf Tenderness, Pedal Edema Neurologic/Psychiatric: Other (on ventilator with decreased sedation so is answering questions with shake of head) Skin: Normal Color, Warm/Dry Results Lab Laboratory Tests 02/13/21 17:28: Glucometer 157H 02/13/21 19:25: Glucometer 157H 02/14/21 01:00: Glucometer 136H 02/14/21 04:03: White Blood Count 13.7H, Red Blood Count 2.84L, Hemoglobin 7.4L, Hematocrit 26L, Mean Corpuscular Volume 91, Mean Corpuscular Hemoglobin 26, Mean Corpuscular Hemoglobin Concent 29L, Red Cell Distribution Width 25.4H, Platelet Count 249, Mean Platelet Volume 10.2, Immature Granulocyte % (Auto) 6, Neutrophils (%) (Auto) 86H, Lymphocytes (%) (Auto) 5L, Monocytes (%) (Auto) 3, Eosinophils (%) (Auto) 0, Basophils (%) (Auto) 0, Neutrophils # (Auto) 11.8H, Lymphocytes # (Auto) 0.7L, Monocytes # (Auto) 0.4, Eosinophils # (Auto) 0.0, Basophils # (Auto) 0.0, Immature Granulocyte # (Auto) 0.8H, Blood Gas Puncture Site LEFT RADIAL, Blood Gas Patient Temperature 36.4, Arterial Blood pH 7.35L, Arterial Blood Partial Pressure CO2 37, Arterial Blood Partial Pressure O2 112H, Arterial Blood HCO3 20L, Arterial Blood Total CO2 21.6, Arterial Blood Oxygen Saturation 99, Arterial Blood Base Excess -4.4L, Denilson Test YES-POS, Blood Gas Ventilator Setting YES, Blood Gas Inspired Oxygen 25%, Sodium Level 143, Potassium Level 3. 7, Chloride Level 111H, Carbon Dioxide Level 20L, Anion Gap 12, Blood Urea Nitrogen 45H, Creatinine 1.47H, Estimat Glomerular Filtration Rate 40, BUN/Creatinine Ratio 31, Glucose Level 135H, Calcium Level 8.0L, Magnesium Level 1.9 02/14/21 11:57: Glucometer 136H Microbiology 02/07/21 Blood Culture - Final, Complete No growth 02/05/21 Gram Stain - Final, Complete 02/05/21 Sputum Culture - Final, Complete Enterobacter cloacae complex YEAST Usual upper respiratory kapil 02/04/21 Urine Culture - Final, Complete YEAST Assessment/Plan Assessment/Plan Assessment and Plan 02/01/21 Cr stable. Diuresing appreciate eICU, cardiology hgb stable- infusing Fe. -fluconazole added for yeast in sputum/urine. -finished cefepime 02/01/21 -stopped high dose steroids 02/01/21 (5 days) -sedation vacation- increased resp distress. 02/02/21- blood sugars still high- go up to sliding scale C- gave additional 10 units levemir once. updated that her kidneys were functioning well through this. -current issue is her respiratory status. continue as above 02/03/21- replacing potassium. Erhlichiosis pending. blood sugar improved. Updated father of patient at bedside. SBT a little better- SBT trial tomorrow. 02/04/21- continue with free water with OG tube. recheck Na level. Will see how SBT goes- possible extubation tomorrow depending on what decides- reasoning is Miryam would not want to be intubated. 02/05/21- spoke with eICU - spoke with patient's - they still do not w ant a trach. Awaking cultures from sputum. Continue with SBTs trials. Will keep discussing her care- ultimately though will go with 's decisions which do line up with what patient has said on last admission. Though her mental state does play a role- of being tired of dealing with her health problems. She would not like to be dependent on a trach or ventilator. 02/06/21- on meropenem to cover pna. Did not tolerate SBT today. UOP decreased. Cr elevated. appreciate eICU consult. erhlichiosis IgM elevated, IgG negative. Patient indicated she did not want to give up on and go on comfort care. 02/07/21- hgb still 7. Will order 2 units of pRBC with lasix in between units. Monitor UOP. Kidneys are in trouble. Pt has been given a couple NS boluses. recheck bmp in AM. 02/08/21- hgb up to 7.8, Creatinine above 2. Monitor I/O. eICU recommend trach. Continue daily SBTs. Treating gram neg pneumonia. 02/09/21- hgb about the same. Kidneys not better. IVF bolus given. Spoke with eICU and - likely patient will not get off the ventilator so putting a trach in likely will not change the outcome. I also spoke with patient today and when asked about trach she did not indicate she would want that by her usual head nod. Same in regards to PEG tube. Will monitor over the weekend and if she has not made any improvement then likely comfort care. If she continues to have rectal bleeding and worsening of kidney failure- will go comfort care. 02/12/21- continue with SBTs. hgb 7. blood sugars running below 100. Decreased her qHS levemir from 30 to 20units. Getting albumin. 02/13/21- bicarb ivf stopped per eICU. Hgb 7.1 restart lovenox. LE U/S from yesterday- limited study but lower veins- widely patent- no DVT. Patie nt did better with SBT- continue to do SBTs. 02/14/21- Cr about the same. UOP a little better. Will call Dr. Stanton and update him on possible trach, feeding tube consult. to talk to patient about it again. SBT today. concerned that she is getting weaker and wanted to know why "pull and pray" was not an option from the beginning. I did have this talk with him last week that we could pull the ET tube but she would likely need to go to comfort care if she decompensated quickly. This plan also was backed down from because patient continues to express she did not want to be extubated and wanted to keep fighting. Dispo: Prognosis- guarded/poor as it is unlikely she will be able to get off the vent. Problems: (1) Acute respiratory failure with hypoxia Assessment & Plan: supportive care- RT, oxygen, diuresing- (2) Disability due to neurological disorder Assessment & Plan: still unclear on etiology- erlichiosis panel positive IgM, negative IgG. Steroids did not help. - had signs of MS- oligoclonal bands- elevated on LP from last admission. Would be good to have an MRI of her head/neck but unable due to patient body habitus (3) Acute on chronic diastolic heart failure (4) Essential hypertension (5) Chronic kidney disease Qualifiers: (6) Obesity hypoventilation syndrome (7) Anemia of chronic disease (8) Morbid obesity (9) Type 2 diabetes mellitus with hyperglycemia (10) Positive serology for Erlichiosis Assessment & Plan: course of doxycycline (11) Acute on chronic renal failure (12) Pneumonia due to Enterobacter cloacae CHAZ ADLER MD Feb 14, 2021 13:21
[2021-02-14] MEDS: METOCLOPRAMIDE INJ 10 MG/2 ML (REGLAN) IVP PRN (14:15)
[2021-02-14] MEDS ORDERED: proPOfol (DIPRIVAN) 1000 MG/100 ML VIAL (ICU) IV ONE (14:15)
[2021-02-14] MEDS: NS IV 500 ML 500 ML IV SCH (15:40)
[2021-02-14] MEDS: SALIVA STIMULANT MOUTH SPRAY (BIOTENE) 1.5 OZ MM PRN (17:29)
[2021-02-14] MEDS: traZODone 100 MG (DESYREL) TAB PO SCH (19:30)
[2021-02-14] MEDS: ROSUVASTATIN 20 MG (CRESTOR) TABLET PO SCH (19:57)
[2021-02-15] VITALS (31 sets, daily range): BP systolic 103–151; BP diastolic 68–115
[2021-02-15] MEDS: LORazepam INJ 2 MG/ML (ATIVAN) VIAL IVP PRN ×4 (01:33→20:33)
[2021-02-15] MEDS: fentaNYL INJ 100 MCG/2 ML AMP IVP PRN ×2 (01:33→10:17)
[2021-02-15] MEDS: RT-ALBUTEROL/IPRATROPIUM 3 ML (DUONEB) VIAL INH SCH ×4 (02:28→21:19)
[2021-02-15 04:36] LABS: ABG BASE EXCESS -3.7 MMOL/L (-2.5-2.5); ABG OXYGEN SATURATION 95 % (94-100); ABG PCO2 37 MMHG (35-45); ABG PH 7.36 (7.37-7.43); ABG PO2 74 MMHG (79-93); ABG TCO2 22.2 MMOL/L (21.0-31.0); ALLENS TEST POSITIVE
[2021-02-15 04:37] LABS: BASOPHILS % (AUTO) 0 % (0-10); EOSINOPHILS % (AUTO) 0 % (0-10); HEMATOCRIT 25 % (35-52); HEMOGLOBIN 7.3 g/dL (11.5-16.0); INSPIRED O2 25% FLOW RATE; LYMPHOCYTES # (AUTO) 0.7 10^3/uL (1.0-4.0); LYMPHOCYTES % (AUTO) 5 % (12-44); MEAN CORPUSCULAR HEMOGLOBIN 26 pg (25-34); MEAN CORPUSCULAR HGB CONC 29 g/dL (32-36); MEAN CORPUSCULAR VOLUME 91 fL (80-99); MEAN PLATELET VOLUME 9.9 fL (9.0-12.2); MONOCYTES # (AUTO) 0.4 10^3/uL (0.0-1.0); MONOCYTES % (AUTO) 3 % (0-12); NEUTROPHILS # (AUTO) 11.1 10^3/uL (1.8-7.8); NEUTROPHILS % (AUTO) 85 % (42-75); PATIENT TEMP 36; PLATELET COUNT 225 10^3/uL (130-400); VENTILATOR YES
[2021-02-15 04:55] LABS: POTASSIUM 3.8 MMOL/L (3.6-5.0)
[2021-02-15 05:01] LABS: CREATININE SERUM 1.29 MG/DL (0.60-1.30)
[2021-02-15 05:03] LABS: MAGNESIUM 1.9 MG/DL (1.6-2.4)
[2021-02-15] MEDS: MAGNESIUM 1 GM/100 ML IVPB 100 ML IV SCH (05:39)
[2021-02-15] MEDS: POTASSIUM CL 10MEQ/50ML IVPB 50 ML IV SCH (05:39)
[2021-02-15] MEDS: KCL 20 MEQ TAB (K-DUR) PO SCH (05:39)
[2021-02-15] MEDS: inSUlin ASPART (NovoLOG) 1 UNIT/0.01 ML (CHARGE PER UNIT) SQ SCH ×4 (05:40→23:24)
[2021-02-15] MEDS: METOCLOPRAMIDE INJ 10 MG/2 ML (REGLAN) IVP PRN (05:40)
[2021-02-15] MEDS: fentaNYL DRIP PRE-MIX 250 ML IV SCH ×3 (05:41→20:33)
[2021-02-15] MEDS: DexMEDEtomidine 250 ML DRIP 250 ML IV SCH ×4 (05:41→20:32)
[2021-02-15] MEDS: ALBUMIN 25% 25 GM/100 ML 50 ML IV SCH ×3 (06:33→23:15)
--- NOTE | 2021-02-15 06:57 | Occ Therapy Progress Note ---
Therapy Progress Note Pt is currently intubated. OT will continue to monitor pt and initiate therapy when pt is more medically stable and able to actively participate in skilled therapy. KENJI DELANEY Feb 15, 2021 06:57
--- NOTE | 2021-02-15 07:50 | Tele-ICU Progress Note ---
Subjective Date Seen by a Provider: Feb 15, 2021 Time Seen by a Provider: 11:04 Subjective/Events-last exam Continues on vent On IV Precedex Family deciding about trach, pt leaning toward not doing it Cr 1.29 a little better than a few days ago Remains on Lovenox 60 bid, insulin, sugars have been well controlled ABG today 7.36/37/74 Sepsis Event Evaluation Height, Weight, BMI Height: 5'2.00" Weight: 280lbs. 0.0oz. [id number]; 52.92 BMI Method:Stated Exam Exam Patient acknowledged, consented, and participated in this virtual visit which was conducted using real time audio/video Vital Signs Date Time Temp Pulse Resp B/P (MAP) Pulse Ox O2 Delivery O2 Flow Rate FiO2 02/15/21 07:38 97 Mechanical Ventilator 30 02/15/21 06:00 70 126/84 (98) 98 Mechanical Ventilator 25.00 02/15/21 05:41 133/80 02/15/21 05:00 71 131/87 (102) 98 Mechanical Ventilator 25.00 02/15/21 04:00 97 Mechanical Ventilator 25 02/15/21 04:00 71 116/82 (93) 95 Mechanical Ventilator 25.00 02/15/21 04:00 36.4 02/15/21 03:00 73 117/83 (94) 94 Mechanical Ventilator 25.00 02/15/21 02:22 76 24 93 30 02/15/21 02:00 75 118/82 (94) 93 Mechanical Ventilator 25.00 02/15/21 01:00 79 124/82 (96) 93 Mechanical Ventilator 25.00 02/15/21 01:00 80 02/15/21 00:08 36.0 02/15/21 00:00 80 123/85 (98) 92 Mechanical Ventilator 25.00 02/14/21 23:56 91 Mechanical Ventilator 25 02/14/21 23:53 123/89 02/14/21 23:00 92 25 123/83 (96) 90 Mechanical Ventilator 25.00 02/14/21 22:00 71 24 122/84 (97) 93 Mechanical Ventilator 25.00 02/14/21 21:21 78 27 93 30 02/14/21 21:00 86 25 121/81 (94) 90 Mechanical Ventilator 25.00 02/14/21 20:00 91 Mechanical Ventilator 25 02/14/21 20:00 79 25 113/77 (89) 91 Mechanical Ventilator 25.00 02/14/21 19:37 36.2 02/14/21 19:10 96 130/87 02/14/21 19:00 99 02/14/21 19:00 99 36 128/88 (101) 90 Mechanical Ventilator 25.00 02/14/21 18:47 100 34 88 25 02/14/21 18:00 87 49 118/78 (91) 95 Mechanical Ventilator 30.00 02/14/21 17:54 Mechanical Ventilator 30.00 02/14/21 17:14 Mechanical Ventilator 100.00 02/14/21 17:00 123 40 186/117 (140) 80 Mechanical Ventilator 25.00 02/14/21 16:43 83 34 91 25 02/14/21 16:00 72 13 137/100 (112) 93 Mechanical Ventilator 25.00 02/14/21 15:51 93 Mechanical Ventilator 25 02/14/21 15:42 35.6 02/14/21 15:00 86 25 130/94 (106) 94 Mechanical Ventilator 25.00 02/14/21 14:02 76 26 96 25 02/14/21 14:00 75 25 123/97 (106) 95 Mechanical Ventilator 25.00 02/14/21 13:31 67 121/81 02/14/21 13:00 71 31 126/90 (102) 93 Mechanical Ventilator 25.00 02/14/21 12:33 75 02/14/21 12:00 80 22 127/86 (100) 93 Mechanical Ventilator 25.00 02/14/21 11:55 36.0 02/14/21 11:22 93 Mechanical Ventilator 25 02/14/21 11:01 85 26 94 30 02/14/21 11:00 76 24 119/76 (90) 93 Mechanical Ventilator 25.00 02/14/21 10:00 94 51 127/118 (121) 98 Mechanical Ventilator 25.00 02/14/21 09:00 87 135/87 (103) 92 Mechanical Ventilator 25.00 02/14/21 08:38 76 138/97 02/14/21 08:00 79 13 128/90 (103) 91 Mechanical Ventilator 25.00 I & O 02/15/21 07:00 Intake Total 2780 ml Output Total 975 ml Balance 1805 ml Height & Weight Height: 5'2.00" Weight: 280lbs. 0.0oz. [id number]; 52.92 BMI Method:Stated General Appearance: No Apparent Distress HEENT: Moist Mucous Membranes Neck: Full Range of Motion, Normal Inspection Respiratory: Decreased Breath Sounds, Rales, Rhonci Cardiovascular: Regular Rate, Rhythm Capillary Refill: Less Than 3 Seconds Gastrointestinal: normal bowel sounds, non tender, soft, other (abd wall is edematous, has gluteal and sacral wounds, no pus) Extremity: Calf Tenderness, Pedal Edema (+4 leg edema) Neurologic/Psychiatric: Other (on ventilator with decreased sedation so is answering questions with shake of head) Skin: Normal Color, Warm/Dry Results Lab Laboratory Tests 02/14/21 04:03 02/15/21 04:15 Assessment/Plan Assessment/Plan multiple medical problems, obesity, acute/chronic hypoxic resp failure did not get SBT, failed in past but as in last note I think chance of weaning off vent is poor IDDM on Levimer 05/02, Aspart with glu running in 100's Elevated Cr 1.29 , a little better than before ? of multiple sclerosis Await family decision on trach, continue present meds Critical Care: Critically Ill Patient Time spent with patient (mins): 30 RODRIGO EL MD Feb 15, 2021 07:50
--- NOTE | 2021-02-15 08:01 | Physical Therapy Progress Note ---
Therapy Progress Note Pt is currently intubated. PT will continue to monitor pt and initiate therapy when pt is more medically stable and able to actively participate in skilled therapy. DIPIKA ZHANG PT Feb 15, 2021 08:01
[2021-02-15] MEDS: PANTOPRAZOLE 40 MG (PROTONIX) VIAL IV SCH ×2 (08:02→20:33)
[2021-02-15] MEDS: ENOXAPARIN 60 MG/0.6 ML (LOVENOX) SYR SC SCH ×2 (08:02→20:33)
[2021-02-15] MEDS: SALIVA STIMULANT MOUTH SPRAY (BIOTENE) 1.5 OZ MM PRN (08:10)
[2021-02-15] MEDS: NS IV 500 ML 500 ML IV SCH (09:21)
--- NOTE | 2021-02-15 10:41 | Consultation - Surgery ---
GALENENOC 02/15/21 1041: History of Present Illness History of Present Illness Patient Consulted On(vidhi/time) 02/15/21 10:35 Date Seen by Provider: Feb 15, 2021 Time Seen by Provider: 10:29 Reason for Visit: Consult for tracheostomy and feeding tube (PEG) History of Present Illness HPI per hospitalist - Reason for consultation: Elevated troponin level. She is a 40-year-old female who was just discharged from hospital yesterday after being treated for cellulitis of both lower extremities. She has no known history of coronary artery disease but does carry a diagnosis of chronic heart failure with preserved ejection fraction. Today she presented to the emergency room with worsening shortness of breath. When I saw her on the cardiac stepdown unit, she also tells me she has been having some chest tightness at home. During her evaluation in the emergency room, troponin level was drawn and this was shown to be mildly elevated. As such, the emergency room physician requested a cardiology consultation. When I saw the patient in her room she was very tachypneic and was sleeping when I first went in. She awoke to voice but was not answering all that many questions as she appeared to be exhausted from today's events. She does have morbid obesity with chronic bilateral lower extremity edema and intermittent panniculitis as well as cellulitis of both legs. She was also just recently diagnosed with diabetes during her previous hospitalization. I was not able to obtain any other history from the patient due to her clinical status. Pt is 40 year old female, with history of CHF, cellultis BL LE. She was intubated due to SOA and remains on vent. When I saw her today she is currently able to respond by a nod and squeeze of the right hand only. She affirms by nodding that she currently does not want a tracheostomy/PEG Nursing also reported sacra decubitus ulcers Allergies and Home Medications Allergies Coded Allergies: No Known Drug Allergies (Unverified , 09/16/17) Home Medications Acetaminophen 325 Mg Tablet, 650 MG PO Q6H PRN for PAIN-MILD (1-4), (Reported) TAKES 2 (325MG) TABLETS Last Action: Held Amlodipine Besylate 10 Mg Tablet, 10 MG PO DAILY, (Reported) Last Action: Continued Aspirin 81 Mg Tablet.dr, 81 MG PO DAILY, (Reported) Last Action: Continued Doxepin HCl 10 Mg Capsule, 10 MG PO HS, (Reported) Last Action: Held Empaglifloz/Linaglip/Metformin 1 Each Tab.bp.24h, 1 EACH PO DAILY, (Reported) Last Action: Held Fentanyl 1 Each Patch.td72, 25 MCG TD Q72H, (Reported) Last Action: Continued Furosemide 20 Mg Tablet, 20 MG PO DAILY, (Reported) Last Action: Held Hydrocodone/Acetaminophen 1 Each Tablet, 1 TAB PO Q8H PRN for PAIN-MODERATE (5- 7), (Reported) Last Action: Reviewed Metformin HCl 500 Mg Tablet, 500 MG PO BID PRN for WHEN OUT OF TRIJARDY SAMPLES, (Reported) Last Action: Held Metoprolol Succinate 50 Mg Tab.er.24h, 50 MG PO BID, (Reported) Last Action: Held Multivitamin 1 Each Tablet, 1 EACH PO DAILY, (Reported) Last Action: Held Phentermine HCl 37.5 Mg Tablet, 37.5 MG PO DAILY, (Reported) Last Action: Held Past Wixnklt-Hgeyif-Mbqwid Hx Patient Social History Smoking Status: Former Smoker Recent Hopitalizations: No Alcohol Use?: No Have you traveled recently?: No Seasonal Allergies Seasonal Allergies: No Surgeries History of Surgeries: Yes Surgeries: Tonsillectomy Respiratory History of Respiratory Disorde: No Cardiovascular History of Cardiac Disorders: Yes Cardiac Disorders: Hypertension Neurological History of Neurological Disord: No Genitourinary History of Genitourinary Disor: No Gastrointestinal History of Gastrointestinal Di: No Musculoskeletal History of Musculoskeletal Dis: No Endocrine History of Endocrine Disorders: No Endocrine Disorders: Diabetes, Non-Insulin dep HEENT History of HEENT Disorders: No Cancer History of Cancer: No Psychosocial History of Psychiatric Problem: No Integumentary History of Skin or Integumenta: No Blood Transfusions History of Blood Disorders: No Family Medical History Significant Family History: Heart Disease, Cancer, CAD Over 55 Years Old, Hyp ertension Review of Systems-General Constitutional: weakness Respiratory: phlegm, stridor Physical Exam-General Problems Physical Exam Vital Signs Vital Signs - First Documented 02/09/21 02/09/21 00:00 03:44 Temp 37.0 Pulse 83 Resp 18 B/P (MAP) 107/78 (88) Pulse Ox 98 O2 Delivery Mechanical Ventilator O2 Flow Rate 25.00 FiO2 25 Capillary Refill : Less Than 3 Seconds General Appearance: no apparent distress, obese Eyes: Bilateral Eye PERRL Neck: supple Respiratory: no respiratory distress, wheezing, expiration, inspiration Cardiovascular: normal peripheral pulses, regular rate, rhythm Peripheral Pulses: 2+ Carotid (R), 2+ Carotid (L) Gastrointestinal: non tender, soft, no organomegaly Extremities: normal capillary refill Neurologic/Psychiatric: alert, motor weakness Skin: normal color, warm/dry Data Review Labs Laboratory Tests 02/14/21 11:57: Glucometer 136H 02/14/21 18:18: Glucometer 110 02/14/21 19:42: Glucometer 118H 02/14/21 23:56: Glucometer 118H 02/15/21 04:15: White Blood Count 13.0H, Red Blood Count 2.78L, Hemoglobin 7.3L, Hematocrit 25L, Mean Corpuscular Volume 91, Mean Corpuscular Hemoglobin 26, Mean Corpuscular Hemoglobin Concent 29L, Red Cell Distribution Width 25.4H, Platelet Count 225, Mean Platelet Volume 9.9, Immature Granulocyte % (Auto) 6, Neutrophils (%) (Auto) 85H, Lymphocytes (%) (Auto) 5L, Monocytes (%) (Auto) 3, Eosinophils (%) (Auto) 0, Basophils (%) (Auto) 0, Neutrophils # (Auto) 11.1H, Lymphocytes # (Auto) 0.7L, Monocytes # (Auto) 0.4, Eosinophils # (Auto) 0.0, Basophils # (Auto) 0.0, Immature Granulocyte # (Auto) 0.8H, Blood Gas Puncture Site RIGHT RADIAL, Blood Gas Patient Temperature 36, Arterial Blood pH 7.36L, Arterial Blood Partial Pressure CO2 37, Arterial Blood Partial Pressure O2 74L, Arterial Blood HCO3 21L, Arterial Blood Total CO2 22.2, Arterial Blood Oxygen Saturation 95, Arterial Blood Base Excess -3.7L, Denilson Test POSITIVE, Blood Gas Ventilator Setting YES, Blood Gas Inspired Oxygen 25% FLOW RATE, Sodium Level 145, Potassium Level 3.8, Chloride Level 113H, Carbon Dioxide Level 22, Anion Gap 10, Blood Urea Nitrogen 46H, Creatinine 1.29, Estimat Glomerular Filtration Rate 46, BUN/Creatinine Ratio 36, Glucose Level 104, Calcium Level 8.0L, Magnesium Level 1.9 Microbiology 02/07/21 Blood Culture - Final, Complete No growth 02/05/21 Gram Stain - Final, Complete 02/05/21 Sputum Culture - Final, Complete Enterobacter cloacae complex YEAST Usual upper respiratory kapil 02/04/21 Urine Culture - Final, Complete YEAST Assessment/Plan Assessment/Plan Assessment/Plan Chronic Respiratory Failure malnutrition Morbidly obese Sacral decubitus ulcers Plan - trachesostomy/ PEG pending patient consent DAWSON STANTON DO 02/16/21 1603: History of Present Illness History of Present Illness Time Seen by Provider: 10:29 History of Present Illness Pt seen and examined, intubated. Surgery asked to consult regarding possible PEG and Trach. Allergies and Home Medications Allergies Coded Allergies: No Known Drug Allergies (Unverified , 09/16/17) Home Medications Acetaminophen 325 Mg Tablet, 650 MG PO Q6H PRN for PAIN-MILD (1-4), (Reported) TAKES 2 (325MG) TABLETS Last Action: Held Amlodipine Besylate 10 Mg Tablet, 10 MG PO DAILY, (Reported) Last Action: Continued Aspirin 81 Mg Tablet.dr, 81 MG PO DAILY, (Reported) Last Action: Continued Doxepin HCl 10 Mg Capsule, 10 MG PO HS, (Reported) Last Action: Held Empaglifloz/Linaglip/Metformin 1 Each Tab.bp.24h, 1 EACH PO DAILY, (Reported) Last Action: Held Fentanyl 1 Each Patch.td72, 25 MCG TD Q72H, (Reported) Last Action: Continued Furosemide 20 Mg Tablet, 20 MG PO DAILY, (Reported) Last Action: Held Hydrocodone/Acetaminophen 1 Each Tablet, 1 TAB PO Q8H PRN for PAIN-MODERATE (5- 7), (Reported) Last Action: Reviewed Metformin HCl 500 Mg Tablet, 500 MG PO BID PRN for WHEN OUT OF TRIJARDY SAMPLES, (Reported) Last Action: Held Metoprolol Succinate 50 Mg Tab.er.24h, 50 MG PO BID, (Reported) Last Action: Held Multivitamin 1 Each Tablet, 1 EACH PO DAILY, (Reported) Last Action: Held Phentermine HCl 37.5 Mg Tablet, 37.5 MG PO DAILY, (Reported) Last Action: Held Patient Home Medication List Home Medication List Reviewed: Yes Review of Systems-General ROS-Unable to Obtain: hard to obtain pt intubated Constitutional: weakness Respiratory: phlegm, stridor, other (respiratory failure) Physical Exam-General Problems Physical Exam General Appearance: no apparent distress, obese Eyes: Bilateral Eye PERRL HEENT: other (ET tube in place) Respiratory: wheezing, expiration, inspiration, other (on vent) Cardiovascular: regular rate, rhythm Gastrointestinal: non tender, soft, no organomegaly Neurologic/Psychiatric: motor weakness Skin: other (decubitus ulcers on gluteal area, sacrum) Assessment/Plan Assessment/Plan Assessment/Plan Chronic Respiratory Failure malnutrition Morbidly obese Sacral decubitus ulcers Plan - trachesostomy/ PEG pending patient consent Supervisory-Addendum Brief Verification & Attestation Participated in pt care: history, MDM, physical Personally performed: exam, history, MDM, supervision of care Care discussed with: Medical Student Procedures: n/a Verification and Attestation of Medical Student E/M Service A medical student performed and documented this service. I then reviewed and verified all information documented by the medical student and made modifications to such information, when appropriate. I personally performed a physical exam, medical decision making and then discussed any differences between the notes and made revisions as necessary to create one note. Dawson Stanton , 02/16/21 , 16:03 ENOC AARON Feb 15, 2021 10:41 DAWSON STANTON DO Feb 16, 2021 16:03
[2021-02-15] MEDS ORDERED: DEXTROSE 50% 50 ML (IMS) SYR ONE (17:54)
[2021-02-15] MEDS ORDERED: DEXTROSE 50% 50 ML (IMS) SYR IV ONE (18:00)
[2021-02-15] MEDS: traZODone 100 MG (DESYREL) TAB PO SCH (20:33)
[2021-02-15] MEDS: ROSUVASTATIN 20 MG (CRESTOR) TABLET PO SCH (20:33)
[2021-02-16] VITALS (15 sets, daily range): BP systolic 100–129; BP diastolic 71–97
[2021-02-16] MEDS: LORazepam INJ 2 MG/ML (ATIVAN) VIAL IVP PRN ×7 (01:20→23:02)
[2021-02-16] MEDS: fentaNYL DRIP PRE-MIX 250 ML IV SCH ×4 (01:20→16:10)
[2021-02-16] MEDS: DexMEDEtomidine 250 ML DRIP 250 ML IV SCH ×2 (01:20→06:01)
[2021-02-16] MEDS: NS IV 500 ML 500 ML IV SCH ×2 (01:21→16:43)
[2021-02-16] MEDS: RT-ALBUTEROL/IPRATROPIUM 3 ML (DUONEB) VIAL INH SCH ×2 (02:44→09:42)
[2021-02-16 04:47] LABS: ABG BASE EXCESS -3.8 MMOL/L (-2.5-2.5); ABG OXYGEN SATURATION 93 % (94-100); ABG PCO2 40 MMHG (35-45); ABG PO2 68 MMHG (79-93); ABG TCO2 22.4 MMOL/L (21.0-31.0); BASOPHILS % (AUTO) 0 % (0-10); EOSINOPHILS % (AUTO) 0 % (0-10); HEMATOCRIT 25 % (35-52); HEMOGLOBIN 7.1 g/dL (11.5-16.0); LYMPHOCYTES # (AUTO) 0.7 10^3/uL (1.0-4.0); LYMPHOCYTES % (AUTO) 5 % (12-44); MEAN CORPUSCULAR HEMOGLOBIN 26 pg (25-34); MEAN CORPUSCULAR HGB CONC 28 g/dL (32-36); MEAN CORPUSCULAR VOLUME 91 fL (80-99); MONOCYTES # (AUTO) 0.4 10^3/uL (0.0-1.0); MONOCYTES % (AUTO) 3 % (0-12); NEUTROPHILS # (AUTO) 11.4 10^3/uL (1.8-7.8); NEUTROPHILS % (AUTO) 86 % (42-75); PLATELET COUNT 234 10^3/uL (130-400); WHITE BLOOD COUNT 13.2 10^3/uL (4.3-11.0)
[2021-02-16 04:50] LABS: ABG PH 7.34 (7.37-7.43); ALLENS TEST YES-POS; PATIENT TEMP 36.6; VENTILATOR YES
[2021-02-16 05:02] LABS: POTASSIUM 3.7 MMOL/L (3.6-5.0)
[2021-02-16 05:08] LABS: CREATININE SERUM 1.1 MG/DL (0.60-1.30)
[2021-02-16 05:10] LABS: MAGNESIUM 1.9 MG/DL (1.6-2.4)
[2021-02-16] MEDS: POTASSIUM CL 10MEQ/50ML IVPB 50 ML IV SCH (05:47)
[2021-02-16] MEDS: MAGNESIUM 1 GM/100 ML IVPB 100 ML IV SCH (05:47)
[2021-02-16] MEDS: KCL 20 MEQ TAB (K-DUR) PO SCH (05:48)
[2021-02-16] MEDS: inSUlin ASPART (NovoLOG) 1 UNIT/0.01 ML (CHARGE PER UNIT) SQ SCH ×2 (05:48→12:01)
[2021-02-16] MEDS: ALBUMIN 25% 25 GM/100 ML 50 ML IV SCH (06:01)
--- NOTE | 2021-02-16 07:00 | Occ Therapy Progress Note ---
Therapy Progress Note Pt is currently intubated. OT will continue to monitor pt and initiate therapy when pt is more medically stable and able to actively participate in skilled therapy. KENJI DELANEY Feb 16, 2021 07:00
--- NOTE | 2021-02-16 07:48 | Physical Therapy Progress Note ---
Therapy Progress Note Pt is currently intubated. PT will continue to monitor pt and initiate therapy when pt is more medically stable and able to actively participate in skilled therapy. DIPIKA ZHANG PT Feb 16, 2021 07:47
[2021-02-16] MEDS: ENOXAPARIN 60 MG/0.6 ML (LOVENOX) SYR SC SCH (08:41)
[2021-02-16] MEDS: PANTOPRAZOLE 40 MG (PROTONIX) VIAL IV SCH (08:42)
[2021-02-16] MEDS ORDERED: ONDANSETRON 4 MG/2 ML (SDV) Z0FRAN IVP PRN (09:00)
[2021-02-16] MEDS ORDERED: BISACODYL 10 MG SUPP (DULCOLAX) PR PRN (09:00)
[2021-02-16] MEDS ORDERED: ACETAMINOPHEN 650 MG SUPP (TYLENOL) PR PRN (09:00)
[2021-02-16] MEDS ORDERED: PROMETHAZINE INJ 25 MG/ML (PHENERGAN) AMP IVP PRN (09:00)
[2021-02-16] MEDS ORDERED: ARTIFICAL TEARS 0.4 ML UNIT DOSE (REFRESH PLUS) OU PRN (09:00)
[2021-02-16] MEDS ORDERED: SALIVA STIMULANT MOUTH SPRAY (BIOTENE) 1.5 OZ MM PRN (09:00)
[2021-02-16] MEDS ORDERED: RT-ALBUTEROL/IPRATROPIUM 3 ML (DUONEB) VIAL INH PRN (09:00)
--- NOTE | 2021-02-16 09:06 | Progress Note ---
Subjective Subjective Date Seen by Provider: Feb 15, 2021 Time Seen by Provider: 12:45 LATE ENTRY----Still intubated. Long discussion involving pallitative care, nurse, , patient and myself. Patient does not want to continue living like this. But understandably had difficulty going ahead and letting go. Review of Systems ROS Unable to Obtain: intubated Neurological: Other All Other Systems Reviewed All Other Systems Reviewed: Yes Objective Exam Vital Signs Vital Signs Date Time Temp Pulse Resp B/P (MAP) Pulse Ox O2 Delivery O2 Flow Rate FiO2 02/16/21 08:00 77 26 127/97 (107) 94 Mechanical Ventilator 30.00 02/16/21 07:44 36.7 02/16/21 07:00 79 02/16/21 07:00 76 24 119/82 (94) 94 Mechanical Ventilator 30.00 02/16/21 06:50 75 22 95 30 02/16/21 06:01 75 117/81 02/16/21 06:00 75 22 119/82 (94) 95 Mechanical Ventilator 30.00 02/16/21 05:00 75 22 117/80 (92) 95 Mechanical Ventilator 30.00 02/16/21 04:24 36.6 02/16/21 04:00 77 23 115/81 (92) 94 Mechanical Ventilator 30.00 02/16/21 04:00 93 Mechanical Ventilator 30 02/16/21 03:00 83 18 110/75 (87) 93 Mechanical Ventilator 30.00 02/16/21 02:44 76 23 93 30 02/16/21 02:00 76 27 100/71 (81) 93 Mechanical Ventilator 30.00 02/16/21 01:20 74 106/73 02/16/21 01:00 74 25 106/73 (84) 95 Mechanical Ventilator 30.00 02/16/21 01:00 74 02/16/21 00:00 73 24 112/78 (89) 95 Mechanical Ventilator 30.00 02/16/21 00:00 95 Mechanical Ventilator 30 02/15/21 23:15 36.6 02/15/21 23:00 74 24 106/77 (87) 95 Mechanical Ventilator 30.00 02/15/21 22:00 84 24 111/77 (88) 94 Mechanical Ventilator 30.00 02/15/21 21:19 81 27 92 30 02/15/21 21:00 77 20 103/68 (80) 92 Mechanical Ventilator 30.00 02/15/21 20:32 90 124/84 02/15/21 20:00 95 Mechanical Ventilator 30 02/15/21 20:00 87 23 119/78 (92) 91 Mechanical Ventilator 30.00 02/15/21 19:51 37.2 02/15/21 19:00 91 02/15/21 19:00 91 25 120/82 (95) 91 Mechanical Ventilator 30.00 02/15/21 18:37 97 33 92 30 02/15/21 18:00 88 19 127/93 (104) 92 Mechanical Ventilator 30.00 02/15/21 17:00 79 127/98 (108) 94 Mechanical Ventilator 30.00 02/15/21 16:53 95 Mechanical Ventilator 30 02/15/21 16:00 78 121/88 (99) 96 Mechanical Ventilator 30.00 02/15/21 15:23 36.9 02/15/21 15:20 77 123/92 02/15/21 15:13 78 27 94 30 02/15/21 15:00 86 128/88 (101) 95 Mechanical Ventilator 30.00 02/15/21 14:00 77 9 128/98 (108) 96 Mechanical Ventilator 30.00 02/15/21 13:00 79 15 129/93 (105) 94 Mechanical Ventilator 30.00 02/15/21 12:31 82 02/15/21 12:00 36.4 02/15/21 12:00 84 25 128/92 (104) 95 Mechanical Ventilator 30.00 02/15/21 11:58 Mechanical Ventilator 30.00 02/15/21 11:51 94 Mechanical Ventilator 30 02/15/21 11:00 97 133/94 (107) 93 Mechanical Ventilator 25.00 02/15/21 10:54 94 26 92 30 02/15/21 10:00 96 15 151/115 (127) 100 Mechanical Ventilator 25.00 02/15/21 09:49 86 138/92 02/15/21 09:00 69 124/81 (95) 95 Mechanical Ventilator 25.00 I & O 02/16/21 07:00 Intake Total 3560 ml Output Total 1215 ml Balance 2345 ml General Appearance: No Apparent Distress Eyes: Bilateral Eye Normal Inspection, Bilateral Eye PERRL HEENT: Moist Mucous Membranes Neck: Full Range of Motion, Normal Inspection Respiratory: Decreased Breath Sounds, Rales, Rhonci Cardiovascular: Regular Rate, Rhythm Gastrointestinal: Normal Bowel Sounds Rectal: Deferred Extremity: Calf Tenderness, Pedal Edema (+4 leg edema) Neurologic/Psychiatric: Other (on ventilator with decreased sedation so is answering questions with shake of head) Skin: Normal Color, Warm/Dry, Other (perineal region- macerated, bleeding, some near necrotic appearing, difficulty with clean up after bowel movements.) Results Lab Laboratory Tests 02/15/21 11:47: Glucometer 105 02/15/21 17:42: Glucometer 52*L 02/15/21 18:30: Glucometer 109 02/15/21 23:23: Glucometer 61L 02/16/21 04:30: White Blood Count 13.2H, Red Blood Count 2.75L, Hemoglobin 7.1L, Hematocrit 25L, Mean Corpuscular Volume 91, Mean Corpuscular Hemoglobin 26, Mean Corpuscular Hemoglobin Concent 28L, Red Cell Distribution Width 25.2H, Platelet Count 234, Mean Platelet Volume 10.0, Immature Granulocyte % (Auto) 6, Neutrophils (%) (Auto) 86H, Lymphocytes (%) (Auto) 5L, Monocytes (%) (Auto) 3, Eosinophils (%) (Auto) 0, Basophils (%) (Auto) 0, Neutrophils # (Auto) 11.4H, Lymphocytes # (Auto) 0.7L, Monocytes # (Auto) 0.4, Eosinophils # (Auto) 0.0, Basophils # (Auto) 0.0, Immature Granulocyte # (Auto) 0.7H, Blood Gas Puncture Site R RADIAL, Blood Gas Patient Temperature 36.6, Arterial Blood pH 7.34*L, Arterial Blood Partial Pressure CO2 40, Arterial Blood Partial Pressure O2 68L, Arterial Blood HCO3 21L, Arterial Blood Total CO2 22.4, Arterial Blood Oxygen Saturation 93L, Arterial Blood Base Excess -3.8L, Denilson Test YES-POS, Blood Gas Ventilator Setting YES, Blood Gas Inspired Oxygen NA, Sodium Level 146H, Potassium Level 3.7, Chloride Level 114H, Carbon Dioxide Level 21, Anion Gap 11, Blood Urea Nitrogen 43H, Creatinine 1.10, Estimat Glomerular Filtration Rate 56, BUN/Creatinine Ratio 39, Glucose Level 85, Calcium Level 8.0L, Magnesium Level 1.9 Microbiology 02/07/21 Blood Culture - Final, Complete No growth 02/05/21 Gram Stain - Final, Complete 02/05/21 Sputum Culture - Final, Complete Enterobacter cloacae complex YEAST Usual upper respiratory kapil 02/04/21 Urine Culture - Final, Complete YEAST Assessment/Plan Assessment/Plan Assessment and Plan 02/01/21 Cr stable. Diuresing appreciate eICU, cardiology hgb stable- infusing Fe. -fluconazole added for yeast in sputum/urine. -finished cefepime 02/01/21 -stopped high dose steroids 02/01/21 (5 days) -sedation vacation- increased resp distress. 02/02/21- blood sugars still high- go up to sliding scale C- gave additional 10 units levemir once. updated that her kidneys were functioning well through this. -current issue is her respiratory status. continue as above 02/03/21- replacing potassium. Erhlichiosis pending. blood sugar improved. Updated father of patient at bedside. SBT a little better- SBT trial tomorrow. 02/04/21- continue with free water with OG tube. recheck Na level. Will see how SBT goes- possible extubation tomorrow depending on what decides- reasoning is Miryam would not want to be intubated. 02/05/21- spoke with eICU - spoke with patient's - they still do not w ant a trach. Awaking cultures from sputum. Continue with SBTs trials. Will keep discussing her care- ultimately though will go with 's decisions which do line up with what patient has said on last admission. Though her mental state does play a role- of being tired of dealing with her health problems. She would not like to be dependent on a trach or ventilator. 02/06/21- on meropenem to cover pna. Did not tolerate SBT today. UOP decreased. Cr elevated. appreciate eICU consult. erhlichiosis IgM elevated, IgG negative. Patient indicated she did not want to give up on and go on comfort care. 02/07/21- hgb still 7. Will order 2 units of pRBC with lasix in between units. Monitor UOP. Kidneys are in trouble. Pt has been given a couple NS boluses. recheck bmp in AM. 02/08/21- hgb up to 7.8, Creatinine above 2. Monitor I/O. eICU recommend trach. Continue daily SBTs. Treating gram neg pneumonia. 02/09/21- hgb about the same. Kidneys not better. IVF bolus given. Spoke with eICU and - likely patient will not get off the ventilator so putting a trach in likely will not change the outcome. I also spoke with patient today and when asked about trach she did not indicate she would want that by her usual head nod. Same in regards to PEG tube. Will monitor over the weekend and if she has not made any improvement then likely comfort care. If she continues to have rectal bleeding and worsening of kidney failure- will go comfort care. 02/12/21- continue with SBTs. hgb 7. blood sugars running below 100. Decreased her qHS levemir from 30 to 20units. Getting albumin. 02/13/21- bicarb ivf stopped per eICU. Hgb 7.1 restart lovenox. LE U/S from yesterday- limited study but lower veins- widely patent- no DVT. Patie nt did better with SBT- continue to do SBTs. 02/14/21- Cr about the same. UOP a little better. Will call Dr. Stanton and update him on possible trach, feeding tube consult. to talk to patient about it again. SBT today. concerned that she is getting weaker and wanted to know why "pull and pray" was not an option from the beginning. I did have this talk with him last week that we could pull the ET tube but she would likely need to go to comfort care if she decompensated quickly. This plan also was backed down from because patient continues to express she did not want to be extubated and wanted to keep fighting. 02/15/21- cr improving. Later in afternoon- contacted by nurse Witt will be comfort care once family arrives and is able to say good bye. Nursing, Palliative care, , patient and myself involved in plan of care. It was discussed with of patient she would be premedicated prior to the ET tube being removed and then symptomatic care to keep her comfortable and hopefully she would be able to try and talk. Dispo: Prognosis- guarded/poor Problems: (1) Acute respiratory failure with hypoxia Assessment & Plan: supportive care- RT, oxygen, diuresing- (2) Disability due to neurological disorder Assessment & Plan: still unclear on etiology- erlichiosis panel positive IgM, negative IgG. Steroids did not help. - had signs of MS- oligoclonal bands- elevated on LP from last admission. Would be good to have an MRI of her head/neck but unable due to patient body habitus (3) Acute on chronic diastolic heart failure (4) Essential hypertension (5) Chronic kidney disease Qualifiers: (6) Obesity hypoventilation syndrome (7) Anemia of chronic disease (8) Morbid obesity (9) Type 2 diabetes mellitus with hyperglycemia (10) Positive serology for Erlichiosis Assessment & Plan: course of doxycycline (11) Acute on chronic renal failure (12) Pneumonia due to Enterobacter cloacae CHZA ADLER MD Feb 16, 2021 09:06
--- NOTE | 2021-02-16 09:28 | Progress Note - Surgery ---
ENOC AARON 02/16/21 0927: Subjective Date Seen by a Provider: Feb 16, 2021 Time Seen by a Provider: 08:20 Subjective/Events-last exam Pt remains on vent, she responds to verbal commands. Family is discussing transition to comfort measures according to nursing staff. Review of Systems Cardiovascular: No: Chest Pain, Palpitations Gastrointestinal: No: Nausea, Vomiting Neurological: Weakness Objective Exam Vital Signs Date Time Temp Pulse Resp B/P (MAP) Pulse Ox O2 Delivery O2 Flow Rate FiO2 02/16/21 09:00 81 24 119/80 (93) 93 Mechanical Ventilator 30.00 02/16/21 08:00 77 26 127/97 (107) 94 Mechanical Ventilator 30.00 02/16/21 07:44 36.7 02/16/21 07:00 79 02/16/21 07:00 76 24 119/82 (94) 94 Mechanical Ventilator 30.00 02/16/21 06:50 75 22 95 30 02/16/21 06:01 75 117/81 02/16/21 06:00 75 22 119/82 (94) 95 Mechanical Ventilator 30.00 02/16/21 05:00 75 22 117/80 (92) 95 Mechanical Ventilator 30.00 02/16/21 04:24 36.6 02/16/21 04:00 77 23 115/81 (92) 94 Mechanical Ventilator 30.00 02/16/21 04:00 93 Mechanical Ventilator 30 02/16/21 03:00 83 18 110/75 (87) 93 Mechanical Ventilator 30.00 02/16/21 02:44 76 23 93 30 02/16/21 02:00 76 27 100/71 (81) 93 Mechanical Ventilator 30.00 02/16/21 01:20 74 106/73 02/16/21 01:00 74 25 106/73 (84) 95 Mechanical Ventilator 30.00 02/16/21 01:00 74 02/16/21 00:00 73 24 112/78 (89) 95 Mechanical Ventilator 30.00 02/16/21 00:00 95 Mechanical Ventilator 30 02/15/21 23:15 36.6 02/15/21 23:00 74 24 106/77 (87) 95 Mechanical Ventilator 30.00 02/15/21 22:00 84 24 111/77 (88) 94 Mechanical Ventilator 30.00 02/15/21 21:19 81 27 92 30 02/15/21 21:00 77 20 103/68 (80) 92 Mechanical Ventilator 30.00 02/15/21 20:32 90 124/84 02/15/21 20:00 95 Mechanical Ventilator 30 02/15/21 20:00 87 23 119/78 (92) 91 Mechanical Ventilator 30.00 02/15/21 19:51 37.2 02/15/21 19:00 91 02/15/21 19:00 91 25 120/82 (95) 91 Mechanical Ventilator 30.00 02/15/21 18:37 97 33 92 30 02/15/21 18:00 88 19 127/93 (104) 92 Mechanical Ventilator 30.00 02/15/21 17:00 79 127/98 (108) 94 Mechanical Ventilator 30.00 02/15/21 16:53 95 Mechanical Ventilator 30 02/15/21 16:00 78 121/88 (99) 96 Mechanical Ventilator 30.00 02/15/21 15:23 36.9 02/15/21 15:20 77 123/92 02/15/21 15:13 78 27 94 30 02/15/21 15:00 86 128/88 (101) 95 Mechanical Ventilator 30.00 02/15/21 14:00 77 9 128/98 (108) 96 Mechanical Ventilator 30.00 02/15/21 13:00 79 15 129/93 (105) 94 Mechanical Ventilator 30.00 02/15/21 12:31 82 02/15/21 12:00 36.4 02/15/21 12:00 84 25 128/92 (104) 95 Mechanical Ventilator 30.00 02/15/21 11:58 Mechanical Ventilator 30.00 02/15/21 11:51 94 Mechanical Ventilator 30 02/15/21 11:00 97 133/94 (107) 93 Mechanical Ventilator 25.00 02/15/21 10:54 94 26 92 30 02/15/21 10:00 96 15 151/115 (127) 100 Mechanical Ventilator 25.00 02/15/21 09:49 86 138/92 I & O 02/16/21 07:00 Intake Total 3560 ml Output Total 1215 ml Balance 2345 ml Capillary Refill : Less Than 3 Seconds General Appearance: No Apparent Distress, Obese HEENT: Moist Mucous Membranes Neck: Non Tender, Supple Respiratory: Decreased Breath Sounds, Rales, Rhonci Cardiovascular: Regular Rate, Rhythm Peripheral Pulses: 2+ Carotid (R), 2+ Carotid (L) Gastrointestinal: normal bowel sounds, non tender, soft Extremity: Calf Tenderness, Pedal Edema (+4 leg edema) Neurologic/Psychiatric: Other (on ventilator with decreased sedation so is answering questions with shake of head) Skin: Normal Color, Warm/Dry, Other (perineal region- macerated, bleeding, some near necrotic appearing, difficulty with clean up after bowel movements.) Results Lab Laboratory Tests 02/15/21 11:47: Glucometer 105 02/15/21 17:42: Glucometer 52*L 02/15/21 18:30: Glucometer 109 02/15/21 23:23: Glucometer 61L 02/16/21 04:30: White Blood Count 13.2H, Red Blood Count 2.75L, Hemoglobin 7.1L, Hematocrit 25L, Mean Corpuscular Volume 91, Mean Corpuscular Hemoglobin 26, Mean Corpuscular Hemoglobin Concent 28L, Red Cell Distribution Width 25.2H, Platelet Count 234, Mean Platelet Volume 10.0, Immature Granulocyte % (Auto) 6, Neutrophils (%) (Auto) 86H, Lymphocytes (%) (Auto) 5L, Monocytes (%) (Auto) 3, Eosinophils (%) (Auto) 0, Basophils (%) (Auto) 0, Neutrophils # (Auto) 11.4H, Lymphocytes # (Auto) 0.7L, Monocytes # (Auto) 0.4, Eosinophils # (Auto) 0.0, Basophils # (Auto) 0.0, Immature Granulocyte # (Auto) 0.7H, Blood Gas Puncture Site R RADIAL, Blood Gas Patient Temperature 36.6, Arterial Blood pH 7.34*L, Arterial Blood Partial Pressure CO2 40, Arterial Blood Partial Pressure O2 68L, Arterial Blood HCO3 21L, Arterial Blood Total CO2 22.4, Arterial Blood Oxygen Saturation 93L, Arterial Blood Base Excess -3.8L, Denilson Test YES-POS, Blood Gas Ventilator Setting YES, Blood Gas Inspired Oxygen NA, Sodium Level 146H, Potassium Level 3.7, Chloride Level 114H, Carbon Dioxide Level 21, Anion Gap 11, Blood Urea Nitrogen 43H, Creatinine 1.10, Estimat Glomerular Filtration Rate 56, BUN/Creatinine Ratio 39, Glucose Level 85, Calcium Level 8.0L, Magnesium Level 1.9 Microbiology 02/07/21 Blood Culture - Final, Complete No growth 02/05/21 Gram Stain - Final, Complete 02/05/21 Sputum Culture - Final, Complete Enterobacter cloacae complex YEAST Usual upper respiratory kapil 02/04/21 Urine Culture - Final, Complete YEAST Assessment/Plan Assessment/Plan Assessment/Plan Chronic Respiratory Failure malnutrition Morbidly obese Sacral decubitus ulcers Plan - trachesostomy/ PEG pending patient consent (unlikely as family is discussing transition to comfort measures) DAWSON STANTON DO 02/16/21 1608: Subjective Time Seen by a Provider: 15:11 Subjective/Events-last exam Pt seen and examined, family has decided on comfort care Objective Exam General Appearance: Obese Respiratory: Decreased Breath Sounds, Rales, Rhonci Cardiovascular: Regular Rate, Rhythm Extremity: Calf Tenderness, Pedal Edema (+4 leg edema) Assessment/Plan Assessment/Plan Assessment/Plan Chronic Respiratory Failure malnutrition Morbidly obese Sacral decubitus ulcers Plan - comfort measures Supervisory-Addendum Brief Verification & Attestation Participated in pt care: history, MDM, physical Personally performed: exam, history, MDM, supervision of care Care discussed with: Medical Student Procedures: n/a Results interpretation: Verified all documentation Verification and Attestation of Medical Student E/M Service A medical student performed and documented this service. I then reviewed and verified all information documented by the medical student and made modifications to such information, when appropriate. I personally performed a physical exam, medical decision making and then discussed any differences between the notes and made revisions as necessary to create one note. Dawson Stanton , 02/16/21 , 16:06 ENOC AARON Feb 16, 2021 09:27 DAWSON STANTON DO Feb 16, 2021 16:08
--- NOTE | 2021-02-16 10:24 | Tele-ICU Progress Note ---
Subjective Date Seen by a Provider: Feb 16, 2021 Time Seen by a Provider: 07:15 Subjective/Events-last exam For comfort care after family arrive. No further recs at this time. asked RN Shellie to call back if problems/questions. Appears comfortable on camera. Sepsis Event Evaluation Height, Weight, BMI Height: 5'2.00" Weight: 280lbs. 0.0oz. [id number]; 52.92 BMI Method:Stated Exam Exam Patient acknowledged, consented, and participated in this virtual visit which was conducted using real time audio/video Vital Signs Date Time Temp Pulse Resp B/P (MAP) Pulse Ox O2 Delivery O2 Flow Rate FiO2 02/16/21 10:00 89 21 129/93 (105) 93 Mechanical Ventilator 30.00 02/16/21 09:42 88 26 93 30 02/16/21 09:00 81 24 119/80 (93) 93 Mechanical Ventilator 30.00 02/16/21 08:00 91 Mechanical Ventilator 30 02/16/21 08:00 77 26 127/97 (107) 94 Mechanical Ventilator 30.00 02/16/21 07:44 36.7 02/16/21 07:00 79 02/16/21 07:00 76 24 119/82 (94) 94 Mechanical Ventilator 30.00 02/16/21 06:50 75 22 95 30 02/16/21 06:01 75 117/81 02/16/21 06:00 75 22 119/82 (94) 95 Mechanical Ventilator 30.00 02/16/21 05:00 75 22 117/80 (92) 95 Mechanical Ventilator 30.00 02/16/21 04:24 36.6 02/16/21 04:00 77 23 115/81 (92) 94 Mechanical Ventilator 30.00 02/16/21 04:00 93 Mechanical Ventilator 30 02/16/21 03:00 83 18 110/75 (87) 93 Mechanical Ventilator 30.00 02/16/21 02:44 76 23 93 30 02/16/21 02:00 76 27 100/71 (81) 93 Mechanical Ventilator 30.00 02/16/21 01:20 74 106/73 02/16/21 01:00 74 25 106/73 (84) 95 Mechanical Ventilator 30.00 02/16/21 01:00 74 02/16/21 00:00 73 24 112/78 (89) 95 Mechanical Ventilator 30.00 02/16/21 00:00 95 Mechanical Ventilator 30 02/15/21 23:15 36.6 02/15/21 23:00 74 24 106/77 (87) 95 Mechanical Ventilator 30.00 02/15/21 22:00 84 24 111/77 (88) 94 Mechanical Ventilator 30.00 02/15/21 21:19 81 27 92 30 02/15/21 21:00 77 20 103/68 (80) 92 Mechanical Ventilator 30.00 02/15/21 20:32 90 124/84 02/15/21 20:00 95 Mechanical Ventilator 30 02/15/21 20:00 87 23 119/78 (92) 91 Mechanical Ventilator 30.00 02/15/21 19:51 37.2 02/15/21 19:00 91 02/15/21 19:00 91 25 120/82 (95) 91 Mechanical Ventilator 30.00 02/15/21 18:37 97 33 92 30 02/15/21 18:00 88 19 127/93 (104) 92 Mechanical Ventilator 30.00 02/15/21 17:00 79 127/98 (108) 94 Mechanical Ventilator 30.00 02/15/21 16:53 95 Mechanical Ventilator 30 02/15/21 16:00 78 121/88 (99) 96 Mechanical Ventilator 30.00 02/15/21 15:23 36.9 02/15/21 15:20 77 123/92 02/15/21 15:13 78 27 94 30 02/15/21 15:00 86 128/88 (101) 95 Mechanical Ventilator 30.00 02/15/21 14:00 77 9 128/98 (108) 96 Mechanical Ventilator 30.00 02/15/21 13:00 79 15 129/93 (105) 94 Mechanical Ventilator 30.00 02/15/21 12:31 82 02/15/21 12:00 36.4 02/15/21 12:00 84 25 128/92 (104) 95 Mechanical Ventilator 30.00 02/15/21 11:58 Mechanical Ventilator 30.00 02/15/21 11:51 94 Mechanical Ventilator 30 02/15/21 11:00 97 133/94 (107) 93 Mechanical Ventilator 25.00 02/15/21 10:54 94 26 92 30 I & O 02/16/21 07:00 Intake Total 3560 ml Output Total 1215 ml Balance 2345 ml Height & Weight Height: 5'2.00" Weight: 280lbs. 0.0oz. [id number]; 52.92 BMI Method:Stated General Appearance: No Apparent Distress, Obese HEENT: Moist Mucous Membranes Neck: Non Tender, Supple Respiratory: Decreased Breath Sounds, Rales, Rhonci Cardiovascular: Regular Rate, Rhythm Capillary Refill: Less Than 3 Seconds Peripheral Pulses: 2+ Carotid (R), 2+ Carotid (L) Gastrointestinal: normal bowel sounds, non tender, soft Extremity: Calf Tenderness, Pedal Edema (+4 leg edema) Neurologic/Psychiatric: Other (on ventilator with decreased sedation so is answering questions with shake of head) Skin: Normal Color, Warm/Dry, Other (perineal region- macerated, bleeding, some near necrotic appearing, difficulty with clean up after bowel movements.) Results Lab Laboratory Tests 02/15/21 04:15 02/16/21 04:30 Assessment/Plan Assessment/Plan See free text. FRANCIE MIRANDA MD Feb 16, 2021 10:24
[2021-02-16] MEDS: GLYCOPYRROLATE 0.2 MG/ML (ROBINUL) 2 ML VIAL IV PRN ×3 (12:19→19:56)
[2021-02-16] MEDS ORDERED: morphine INJ 4 MG/ML 1 ML (VIAL/SYRINGE) IV PRN (14:00)
[2021-02-16] MEDS ORDERED: morphine INJ 10 MG/ML 1ML (SYR OR VIAL) IVP PRN (14:00)
[2021-02-16] MEDS ORDERED: morphine INJ 4 MG/ML 1 ML (VIAL/SYRINGE) ONE (14:10)
[2021-02-16] MEDS: morphine INJ 4 MG/ML 1 ML (VIAL/SYRINGE) IVP PRN ×4 (15:08→17:25)
[2021-02-16] MEDS ORDERED: HYDROmorphone 2 MG/ML VIAL (DILAUDID) IV PRN ×2 (17:45→19:15)
[2021-02-16] MEDS ORDERED: HYDROmorphone PF INJECTION 20 MG in NS (IVPB) 100 ML IV SCH (18:00)
[2021-02-16] MEDS ORDERED: NS IV SCH (18:30)
[2021-02-16] MEDS ORDERED: HYDROMORPHONE IV SCH (18:30)
[2021-02-16] MEDS: traZODone 100 MG (DESYREL) TAB PO SCH (21:18)
--- NOTE | 2021-02-19 23:40 | Discharge Summary ---
Discharge Summary Hospital Course Problems/Dx: (1) Acute respiratory failure with hypoxia (2) Disability due to neurological disorder (3) Acute on chronic diastolic heart failure (4) Essential hypertension (5) Chronic kidney disease Qualifiers: (6) Obesity hypoventilation syndrome (7) Anemia of chronic disease (8) Morbid obesity (9) Type 2 diabetes mellitus with hyperglycemia (10) Positive serology for Erlichiosis (11) Acute on chronic renal failure (12) Pneumonia due to Enterobacter cloacae Hospital Course Date of Admission: Jan 27, 2021 at 10:48 Admission Diagnosis : see progress notes. Family Physician/Provider: MadihaLocal Physician Date of Discharge: 02/19/21 Discharge Diagnosis: See progress notes Hospital Course: Shortness of breath. Admitted for shortness of breath and acute hypoxic respiratory failure on 01/27/21- she was discharged from a 2 week stay on 01/26/21 on room air- in which she was treated for severe sepsis due to strep bacteremia, panniculitis, acute hypoxic resp failure, acute on chronic kidney failure, possible erhlichiosis infection. She was also evaluated for multiple sclerosis- unable to get an MRI due to body habitus. LP showed oligoclonal bands but not definitive for MS. We did do 5 days of high dose steroids without much improvement. She had physical decline for months leading up to the first admit. She was unable to walk on admission and was discharge to home unable to walk- so a ezequiel lift was ordered for home. 02/01/21 Cr stable. Diuresing appreciate eICU, cardiology hgb stable- infusing Fe. -fluconazole added for yeast in sputum/urine. -finished cefepime 02/01/21 -stopped high dose steroids 02/01/21 (5 days) -sedation vacation- increased resp distress. 02/02/21- blood sugars still high- go up to sliding scale C- gave additional 10 units levemir once. updated that her kidneys were functioning well through this. -current issue is her respiratory status. continue as above 02/03/21- replacing potassium. Erhlichiosis pending. blood sugar improved. Updated father of patient at bedside. SBT a little better- SBT trial tomorrow. 02/04/21- continue with free water with OG tube. recheck Na level. Will see how SBT goes- possible extubation tomorrow depending on what decides- reasoning is Miryam would not want to be intubated. 02/05/21- spoke with eICU - spoke with patient's - they still do not want a trach. Awaking cultures from sputum. Continue with SBTs trials. Will keep discussing her care- ultimately though will go with 's decisions which do line up with what patient has said on last admission. Though her mental state does play a role- of being tired of dealing with her health problems. She would not like to be dependent on a trach or ventilator. 02/06/21- on meropenem to cover pna. Did not tolerate SBT today. UOP decreased. Cr elevated. appreciate eICU consult. erhlichiosis IgM elevated, IgG negative. Patient indicated she did not want to give up on and go on comfort care. 02/07/21- hgb still 7. Will order 2 units of pRBC with lasix in between units. Monitor UOP. Kidneys are in trouble. Pt has been given a couple NS boluses. recheck bmp in AM. 02/08/21- hgb up to 7.8, Creatinine above 2. Monitor I/O. eICU recommend trach. Continue daily SBTs. Treating gram neg pneumonia. 02/09/21- hgb about the same. Kidneys not better. IVF bolus given. Spoke with eICU and - likely patient will not get off the ventilator so putting a trach in likely will not change the outcome. I also spoke with patient today and when asked about trach she did not indicate she would want that by her usual head nod. Same in regards to PEG tube. Will monitor over the weekend and if she has not made any improvement then likely comfort care. If she continues to have rectal bleeding and worsening of kidney failure- will go comfort care. 02/12/21- continue with SBTs. hgb 7. blood sugars running below 100. Decreased her qHS levemir from 30 to 20units. Getting albumin. 02/13/21- bicarb ivf stopped per eICU. Hgb 7.1 restart lovenox. LE U/S from yesterday- limited study but lower veins- widely patent- no DVT. Patient did better with SBT- continue to do SBTs. -perineal area starting to break down. macerated. continue skin care. 02/14/21- Cr about the same. UOP a little better. Will call Dr. Stanton and update him on possible trach, feeding tube consult. to talk to patient about it again. SBT today. concerned that she is getting weaker and wanted to know why "pull and pray" was not an option from the beginning. I did have this talk with him last week that we could pull the ET tube but she would likely need to go to comfort care if she decompensated quickly. This plan also was backed down from because patient continues to express she did not want to be extubated and wanted to keep fighting. 02/15/21- cr improving. Later in afternoon- contacted by nurse Miryam will be comfort care once family arrives and is able to say good bye. Nursing, Palliative care, , patient and myself involved in plan of care. It was discussed with of patient she would be premedicated prior to the ET tube being removed and then symptomatic care to keep her comfortable and hopefully she would be able to try and talk. 02/16/21- patient was extubated and she was able to spend some time with family- she did shortly after midnight 02/17/21. Labs and Pending Lab Test: Microbiology 02/07/21 Blood Culture - Final, Complete No growth 02/05/21 Gram Stain - Final, Complete 02/05/21 Sputum Culture - Final, Complete Enterobacter cloacae complex YEAST Usual upper respiratory kapil 02/04/21 Urine Culture - Final, Complete YEAST Home Meds Active Reported Fentanyl Patch 25 MCG (Fentanyl) 1 Each Patch.td72 25 Mcg TD Q72H Metoprolol Succinate 50 Mg Tab.er.24h 50 Mg PO BID Doxepin HCl 10 Mg Capsule 10 Mg PO HS Phentermine HCl 37.5 Mg Tablet 37.5 Mg PO DAILY Trijardy Xr 12.5-2.5-1,000 mg (Empaglifloz/Linaglip/Metformin) 1 Each Tab.bp.24h 1 Each PO DAILY Metformin HCl 500 Mg Tablet 500 Mg PO BID PRN Hydrocodone-Acetamin 5-325 mg (Hydrocodone/Acetaminophen) 1 Each Tablet 1 Tab PO Q8H PRN Tylenol (Acetaminophen) 325 Mg Tablet 650 Mg PO Q6H PRN TAKES 2 (325MG) TABLETS Multivitamin 1 Each Tablet 1 Each PO DAILY Aspirin EC (Aspirin) 81 Mg Tablet.dr 81 Mg PO DAILY Furosemide 20 Mg Tablet 20 Mg PO DAILY Amlodipine Besylate 10 Mg Tablet 10 Mg PO DAILY Assessment/Pt Instructions Patient body released to home Discharge Planning: <30 minutes discharge planning Discharge Physical Examination Vital Signs Vital Signs Date Time Temp Pulse Resp B/P (MAP) Pulse Ox O2 Delivery O2 Flow Rate FiO2 02/16/21 16:38 Nasal Cannula 2.00 02/16/21 11:44 30 02/16/21 11:00 86 13 127/84 (98) 92 02/16/21 07:44 36.7 Allergies: Coded Allergies: No Known Drug Allergies (Unverified , 09/16/17) Discharge Summary Date of Admission Jan 27, 2021 at 10:48 Date of Discharge Feb 17, 2021 at 00:47 Admission Diagnosis Respiratory failure. Comfort Measures/ End of Life Care: Pallative Care Time spent on discussion (min): 0 Discharge Diagnosis 40 yo F being evaluated for acute respiratory failure. 01/29/21- restarted trazodone to help her sleep. Ordered PT to try and keep her from worsening physically. Will do Fe infusions again. Restarted amlodipine for her elevated blood pressure. May try to change to another class. Wound care dressing changes ordered. Nursing called and informed me of patient's vitals and work of breathing. Will go ahead and order CTA to rule out pulmonary embolism as she has multiple risk factors- sedentary lifestyle, obesity, illness. -stopped vancomycin. (1) Acute respiratory failure with hypoxia Assessment & Plan: supportive care- RT, oxygen, diuresing- (2) Disability due to neurological disorder Assessment & Plan: still unclear on etiology- erlichiosis panel positive IgM, negative IgG. Steroids did not help. - had signs of MS- oligoclonal bands- elevated on LP from last admission. Would be good to have an MRI of her head/neck but unable due to patient body habitus (3) Acute on chronic diastolic heart failure (4) Essential hypertension (5) Chronic kidney disease Qualifiers: (6) Obesity hypoventilation syndrome (7) Anemia of chronic disease (8) Morbid obesity (9) Type 2 diabetes mellitus with hyperglycemia (10) Positive serology for Erlichiosis Assessment & Plan: course of doxycycline (11) Acute on chronic renal failure (12) Pneumonia due to Enterobacter cloacae CHAZ ADLER MD Feb 19, 2021 23:39
== END 2021-02-17 00:47 | disposition expired | DRG 870 ==
LOC: EDUNIT# 07:47 → ER 07:48 → CSD 10:48 → 4TH 01-29 11:43 → ICU 01-29 15:19
PROVIDERS: ADMIT Family Medicine; ATTEND Family Medicine
PROC: 5A1955Z Respiratory Ventilation, Greater than 96 Consecutive Hours (ICD-10-PCS; principal; 2021-01-29)
PROC: 0BH17EZ Insertion of Endotracheal Airway into Trachea, Via Natural or Artificial Opening (ICD-10-PCS; 2021-01-29)
DX: A41.9 Sepsis, unspecified organism (principal); J96.01 Acute respiratory failure with hypoxia; I50.33 Acute on chronic diastolic (congestive) heart failure; J96.02 Acute respiratory failure with hypercapnia; J15.8 Pneumonia due to other specified bacteria; I21.A1 Myocardial infarction type 2; Z51.5 Encounter for palliative care; Z66 Do not resuscitate; Z20.822 Contact with and (suspected) exposure to COVID-19; E66.2 Morbid (severe) obesity with alveolar hypoventilation; I13.0 Hypertensive heart and chronic kidney disease with heart failure and stage 1 through stage 4 chronic kidney disease, or unspecified chronic kidney disease; Z68.43 Body mass index [BMI] 50.0-59.9, adult; L03.116 Cellulitis of left lower limb; L03.115 Cellulitis of right lower limb; J44.0 Chronic obstructive pulmonary disease with (acute) lower respiratory infection; J44.1 Chronic obstructive pulmonary disease with (acute) exacerbation; E46 Unspecified protein-calorie malnutrition; N17.9 Acute kidney failure, unspecified; A77.40 Ehrlichiosis, unspecified; E87.0 Hyperosmolality and hypernatremia; E11.22 Type 2 diabetes mellitus with diabetic chronic kidney disease; N18.9 Chronic kidney disease, unspecified; R77.8 Other specified abnormalities of plasma proteins; Z79.84 Long term (current) use of oral hypoglycemic drugs; E78.2 Mixed hyperlipidemia; E11.65 Type 2 diabetes mellitus with hyperglycemia; L89.159 Pressure ulcer of sacral region, unspecified stage; D63.8 Anemia in other chronic diseases classified elsewhere; G35 Multiple sclerosis; F41.9 Anxiety disorder, unspecified; R41.0 Disorientation, unspecified; E86.9 Volume depletion, unspecified; Z87.891 Personal history of nicotine dependence; Z79.82 Long term (current) use of aspirin; Z82.49 Family history of ischemic heart disease and other diseases of the circulatory system
CPT/HCPCS: 36410; 36415; 36600; 71045; 76937; 80048; 80053; 80061; 81000; 81002; 82040; 82274; 82805; 82947; 83605; 83735; 83880; 84100; 84145; 84478; 84484; 84550; 85007; 85025; 85027; 85379; 85610; 85730; 86666; 86850; 86900; 86901; 86920; 87040; 87070; 87077; 87081; 87088; 87186; 87205; 87636; 93005; 93306; 93970; 94002; 94003; 94640; 94799; 96361; 96365; 96366; 96367; 96368; 96375